=== PATIENT | female | born 1995 | race Caucasian/White ===

== ENCOUNTER → 2020-07-17 09:22 | Outpatient (CLI) | payer OTHER, SELFPAY ==
[2020-07-17 08:42] VITALS: BMI 29.0
[2020-07-17 09:47] LABS: Absolute Lymphocyte Count 1.46 X10^3/uL (0.83-4.51); Basophil# 0.03 X10^3/uL; Basophil% 0.2 % (0-1); Eosinophils% 0.8 % (0-5); Hematocrit 37.7 % (37-47); Hemoglobin 12.6 g/dL (12.0-15.0); Lymphocyte # 1.46 X10^3/ul (4.0); Lymphocyte % 11.9 % (19-41); Mean Corp Hgb Conc 33.4 g/dL (32-36); Mean Corpuscular Hgb 28.3 pg (27.0-32.0); Mean Corpuscular Volume 84.5 fL (81-99); Mean Platelet Vol. 10.7 fl (6.2-12.0); Monocyte# 0.58 X10^3/uL; Monocyte% 4.7 % (0-10); NRBC Flagged by Analyzer 0 % (0-5); Neutrophil % 81.9 % (47-70); Platelet Count 199 K/mm3 (150-450); RBC Distribution Width CV 13.1 % (11.6-14.6); RBC Distribution Width SD 40.1 fl (35.1-43.9); Red Blood Count 4.46 M/mm3 (4.2-5.4); White Blood Count 12.2 K/mm3 (4.4-11.0)
[2020-07-17 10:14] LABS: Amphetamine Urine VISTA NEGATIVE (<1000 ng/mL); Barbiturate Urine VISTA NEGATIVE (< 200 ng/mL); Benzodiazepine Urine VISTA NEGATIVE (< 200 ng/mL); Cocaine Urine VISTA NEGATIVE (< 300 ng/mL); Ecstacy Urine VISTA NEGATIVE (< 500 ng/mL); Methadone Urine VISTA NEGATIVE (< 300 ng/mL); PCP Urine VISTA NEGATIVE (< 25 ng/mL); THC Urine VISTA NEGATIVE (< 50 ng/mL); Vista UDS pH Range 5
[2020-07-17 11:06] LABS: HIV - WCH Non-Reactive (Nonreactive); Hepatitis B Surface Antigen Non-Reactive (Nonreactive); Hepatitis C Antibody Non-Reactive (Nonreactive); Rubella IgG 39.2 IU/mL
[2020-07-23 06:28] LABS: Rapid Plasmin Reagin (RPR) NONREACTIVE (NONREACTIVE)
== END ==
PROVIDERS: Referring Provider Obstetrics & Gynecology; Visit Provider Obstetrics & Gynecology
DX: Z34.80 Encounter for supervision of other normal pregnancy, unspecified trimester (principal)
CPT/HCPCS: 36415; 80307; 85025; 86592; 86703; 86762; 86803; 86850; 86900; 86901; 87086; 87088; 87340

== ENCOUNTER → 2020-08-12 17:13 | Outpatient (CLI) | payer OTHER, SELFPAY ==
[2020-08-12 15:31] VITALS: BMI 29.0
[2020-08-12 18:54] LABS: Amphetamine Urine VISTA NEGATIVE (<1000 ng/mL); Barbiturate Urine VISTA NEGATIVE (< 200 ng/mL); Benzodiazepine Urine VISTA NEGATIVE (< 200 ng/mL); Cocaine Urine VISTA NEGATIVE (< 300 ng/mL); Ecstacy Urine VISTA NEGATIVE (< 500 ng/mL); Methadone Urine VISTA NEGATIVE (< 300 ng/mL); PCP Urine VISTA NEGATIVE (< 25 ng/mL); THC Urine VISTA NEGATIVE (< 50 ng/mL); Vista UDS pH Range 5
== END ==
PROVIDERS: Referring Provider Obstetrics & Gynecology; Visit Provider Obstetrics & Gynecology
DX: O23.40 Unspecified infection of urinary tract in pregnancy, unspecified trimester (principal); Z3A.00 Weeks of gestation of pregnancy not specified
CPT/HCPCS: 80307; 87086; 87088

== ENCOUNTER → 2020-09-10 16:20 | Outpatient (CLI) | payer OTHER, SELFPAY ==
[2020-09-10 15:48] VITALS: BMI 30.9
[2020-09-10 19:32] LABS: Chlamydia Trachomatis by PCR Negative (Negative); Neisserai gonorrhoeae by PCR Negative (Negative); Probe Check PASS; Sample Adequacy Control PASS; Specimen Processing Control PASS
== END ==
PROVIDERS: Referring Provider Obstetrics & Gynecology; Visit Provider Obstetrics & Gynecology
DX: O23.40 Unspecified infection of urinary tract in pregnancy, unspecified trimester (principal); Z3A.00 Weeks of gestation of pregnancy not specified
CPT/HCPCS: 87086; 87088; 87491; 87591

== ENCOUNTER → 2020-10-05 17:00 | Outpatient (CLI) | payer OTHER, SELFPAY ==
[2020-10-05 16:11] VITALS: BMI 31.6
== END ==
PROVIDERS: Visit Provider Obstetrics & Gynecology
DX: R39.15 Urgency of urination (principal)
CPT/HCPCS: 87086; 87088

== ENCOUNTER → 2020-10-28 15:19 | Outpatient (CLI) | payer OTHER, SELFPAY ==
[2020-10-05 16:11] VITALS: BMI 31.6
[2020-10-28 15:41] LABS: Absolute Lymphocyte Count 1.47 X10^3/uL (0.83-4.51); Absolute Neutrophil Count 11.4 X10^3/uL (2.0-7.7); Basophil# 0.02 X10^3/uL; Basophil% 0.1 % (0-1); Eosinophil# 0.08 X10^3/uL; Eosinophils% 0.6 % (0-5); Hematocrit 36.8 % (37-47); Hemoglobin 12.1 g/dL (12.0-15.0); Lymphocyte # 1.47 X10^3/ul (4.0); Lymphocyte % 10.6 % (19-41); Mean Corp Hgb Conc 32.9 g/dL (32-36); Mean Corpuscular Hgb 29.5 pg (27.0-32.0); Mean Corpuscular Volume 89.8 fL (81-99); Mean Platelet Vol. 10.4 fl (6.2-12.0); Monocyte# 0.78 X10^3/uL; Monocyte% 5.6 % (0-10); NRBC Flagged by Analyzer 0 % (0-5); Neutrophil # 11.43 X10^3/uL (2.7-7.7); Neutrophil % 82.7 % (47-70); Platelet Count 179 K/mm3 (150-450); RBC Distribution Width CV 13.4 % (11.6-14.6); RBC Distribution Width SD 43.8 fl (35.1-43.9); White Blood Count 13.8 K/mm3 (4.4-11.0)
[2020-10-28 15:51] LABS: Glucose Challenge Gest 1H 50g 97 mg/dL (70-140)
== END ==
PROVIDERS: Nurse Practitioner Women's Health; Referring Provider Obstetrics & Gynecology; Visit Provider Obstetrics & Gynecology
DX: Z13.1 Encounter for screening for diabetes mellitus (principal); Z34.80 Encounter for supervision of other normal pregnancy, unspecified trimester
CPT/HCPCS: 36415; 82950; 85025

== ENCOUNTER 2020-12-10 16:20 | Outpatient (CLI) | payer OTHER, SELFPAY ==
[2020-12-10 15:50] VITALS: BMI 34.3
[2020-12-10 16:28] VITALS: BMI 35.3
[2020-12-10 16:47] VITALS: BP 133/71; PULSE 107
[2020-12-10 17:04] VITALS: BP 118/63; PULSE 105
[2020-12-10 17:15] LABS: Hematocrit 35.7 % (37-47); Mean Corp Hgb Conc 33.6 g/dL (32-36); Mean Corpuscular Hgb 29.3 pg (27.0-32.0); Mean Corpuscular Volume 87.3 fL (81-99); Mean Platelet Vol. 10.7 fl (6.2-12.0); Platelet Count 156 K/mm3 (150-450); RBC Distribution Width CV 13.6 % (11.6-14.6); RBC Distribution Width SD 42.9 fl (35.1-43.9); Red Blood Count 4.09 M/mm3 (4.2-5.4); White Blood Count 14.1 K/mm3 (4.4-11.0)
[2020-12-10 17:18] VITALS: BP 111/58; PULSE 97
[2020-12-10 17:32] LABS: AST(SGOT) 17 U/L (15-37); Alanine Aminotransfer ALT/SGPT 18 U/L (13-56); Creatinine, Serum 0.66 mg/dL (0.55-1.02); EST Glomerular Filtration Rate 118 mL/min (>60); Est Glom Filt Rate - Afr Amer 143 mL/min (>60); Estimated Creatinine Clearance 109.66 ml/min; Uric Acid 4.3 mg/dL (2.6-6.0)
[2020-12-10 17:33] VITALS: BP 105/59; PULSE 102
[2020-12-10 17:37] LABS: Protein, Urine (Random) 14.1 mg/dL (<11.9); Protein:Creat Ratio 212 mg/g CRE (0-200)
[2020-12-10 17:48] VITALS: BP 118/59; PULSE 107; TEMP 36.6
[2020-12-10] MEDS: Acetaminophen 500 MG Tablet 1000 MG PO (18:04)
--- NOTE | 2020-12-11 11:55 | OB.TRI.NOTE ---
- Problem List (1) Transient hypertension Status: Acute (2) Supervision of other normal Status: Acute Comment: PRR OTF 01/24/21 boy Rojas PC: Elijah, : CELIA History of Present Illness Date of Service: 12/10/20 Was patient seen by the physician?: Yes Reason For Visit: RULE OUT PRE-E Date of Service: 12/10/20 Final OTF: 01/24/21 Gestational age: 33 Weeks and 5 Days History of Present Illness: 25yo at 33 weeks presenting from office for elevated BP, intermittent headaches, and N/V. Has not felt well for the last few days. Mild headache present in triage, but resolved with tylenol. Allergies No Known Allergies Allergy (Verified 12/10/20 15:51) - Pertinent Past Medical History Medical History: Past Medical History (Last Reviewed 12/10/20 @ 15:50 by Delmy Welsh) Anxiety (Acute) Surgical History: Past Surgical History (Last Reviewed 12/10/20 @ 15:50 by Delmy Welsh) H/O section (Acute) 11/23/2018 Cat II FHT. Desires TOLAC. H/O dilation and curettage SAB x2 Laboratory Studies: Laboratory Tests 12/10/20 12/10/20 12/10/20 Range/Units 16:45 16:45 16:10 WBC 14.1 H (4.4-11.0) K/mm3 RBC 4.09 L (4.2-5.4) M/mm3 Hgb 12.0 (12.0-15.0) g/dL Hct 35.7 L (37-47) % MCV 87.3 (81-99) fL MCH 29.3 (27.0-32.0) pg MCHC 33.6 (32-36) g/dL RDW Std Deviation 42.9 (35.1-43.9) fl RDW Coeff of Sherif 13.6 (11.6-14.6) % Plt Count 156 (150-450) K/mm3 MPV 10.7 (6.2-12.0) fl Creatinine 0.66 (0.55-1.02) mg/dL Estim Creat Clear Calc 109.66 ml/min Est GFR (MDRD) Af Amer 143 (>60) mL/min Est GFR (MDRD) Non-Af 118 (>60) mL/min Uric Acid 4.3 (2.6-6.0) mg/dL AST 17 (15-37) U/L ALT 18 (13-56) U/L U Random Total Protein 14.1 H (<11.9) mg/dL Urine Creatinine 66.40 (NO RANGE EST.) mg/dL Protein/Creatinin Ratio 212 H (0-200) mg/g CRE Review of Systems Constitutional: Denies: Chills, Fever HEENT: Reports: Head Aches Cardiovascular: Denies: Light Headedness Respiratory: Denies: Shortness of Breath Gastrointestinal: Reports: Nausea, Vomiting Physical Exam Vitals: Vital Signs Temp Pulse BP 97.8 F 107 H 118/59 L 12/10/20 17:48 12/10/20 17:48 12/10/20 17:48 General: Alert, Oriented x3, Cooperative, No apparent distress, Well developed, Well nourished HEENT: Atraumatic, PERRLA, EOMI, Normocephalic Cardiovascular: Regular rate Lungs: Normal air movement Abdomen: Soft, Non Tender, Non-Distended, Gravid, Appropriate for Gestational Age Extremities:: No edema Neurological: Cranial nerves II-XII grossly intact, Neuro grossly intact NST - FHR Rate Baby A Variability:: Moderate Accelerations:: 15 x 15 Decelerations:: None NST Reactive:: Yes FHR Category:: Category I Impression/Plan Elevated BP/PARRY - BPs normal in triage - PreE labs negative aside from slightly elevated P:C ratio - PARRY resolved with tylenol - Discharge to home with BP check next week Multi Select Codes - Visit Charges Office Visit/Consults: 00960 OV L3 Est - Urinary/Genital Urinary/Genital CPT Codes: 75595-13 non-stress test Interp
== END 2020-12-10 18:40 | disposition home or self-care (01) ==
LOC: WPOUT 16:25 → WP 16:26
PROVIDERS: Visit Provider Obstetrics & Gynecology
DX: O26.893 Other specified pregnancy related conditions, third trimester (principal); R03.0 Elevated blood-pressure reading, without diagnosis of hypertension; R51.9 Headache, unspecified; Z3A.33 33 weeks gestation of pregnancy
CPT/HCPCS: 36415; 59025; 59050; 82565; 82570; 84156; 84450; 84460; 84550; 85027; 99218; G0378

== ENCOUNTER 2020-12-24 17:25 | Inpatient (IN) | payer OTHER, SELFPAY ==
[2020-12-24] VITALS (14 sets, daily range): BP systolic 101–140; BP diastolic 50–86; PULSE 79–121; RESP 14–20; TEMP 36.2–37.3; O2SAT 97–99; BMI 35.9
[2020-12-24 16:59] LABS: ROM Internal Control Test YES-OK TO RESULT pt. (Internal QC)
[2020-12-24 17:06] LABS: ROM Patient Test POSITIVE (Negative)
[2020-12-24] MEDS: Lactated Ringers 1,000 ML 999 ML IV (17:52)
[2020-12-24 18:04] LABS: Absolute Lymphocyte Count 1.77 X10^3/uL (0.83-4.51); Absolute Neutrophil Count 15.8 X10^3/uL (2.0-7.7); Basophil# 0.03 X10^3/uL; Basophil% 0.2 % (0-1); Eosinophils% 0.5 % (0-5); Hemoglobin 12.9 g/dL (12.0-15.0); Lymphocyte # 1.77 X10^3/ul (4.0); Lymphocyte % 9.4 % (19-41); Mean Corp Hgb Conc 33.1 g/dL (32-36); Mean Corpuscular Hgb 29.1 pg (27.0-32.0); Mean Corpuscular Volume 87.8 fL (81-99); Mean Platelet Vol. 11.1 fl (6.2-12.0); Monocyte# 1.13 X10^3/uL; NRBC Flagged by Analyzer 0 % (0-5); Neutrophil # 15.78 X10^3/uL (2.7-7.7); Neutrophil % 83.3 % (47-70); Platelet Count 158 K/mm3 (150-450); RBC Distribution Width CV 13.9 % (11.6-14.6); RBC Distribution Width SD 44.2 fl (35.1-43.9); Red Blood Count 4.44 M/mm3 (4.2-5.4); White Blood Count 18.9 K/mm3 (4.4-11.0)
--- NOTE | 2020-12-24 18:14 | HP.PCM_ITS ---
- Problem List (1) premature rupture of membranes (PPROM) delivered, current hospitalization Status: Acute (2) 34 weeks gestation of Status: Acute Comment: electronic covid test ordered 12/17/20 (3) Anxiety Status: Acute (4) H/O section Status: Acute Comment: 11/23/2018 Cat II FHT. Desires TOLAC. (5) History of tetanus, diphtheria, and acellular pertussis booster vaccination (Tdap) Status: Acute Comment: 10/28/20 (6) Status: Acute Qualifiers: Comment: Declines NIPT, carrier, and NTD screen. normal anatomy (7) Supervision of other normal Status: Acute Comment: PRR OTF 01/24/21 boy Rojas PC: Elijah, : CELIA (8) Transient hypertension Status: Acute (9) UTI (urinary tract infection) during Status: Acute Qualifiers: Comment: Repeat culture neg History and Physical Date of Admission: 12/24/20 Intake Vital Signs 12/24/20 Height 5 ft 3 in 12/24/20 Weight: 203 lb 2 oz 12/24/20 BMI 35.9 12/24/20 BP 128/80 H Intake Visit Reasons: 36 WK OB In Service Education Teacher Required: No Accompanied by: Is patient in pain?: No Allergies No Known Allergies Allergy (Verified 12/24/20 16:05) Medications vitamin#30 30 mg iron-10 mg iron-folic acid 1 mg-omg3 capsule 1 cap PO DAILY #30 cap 10/13/20 [Rx Confirmed 12/24/20] miscellaneous medical supply See Rx Instructions .ROUTE .MEDSUPPLY #1 ea 12/11/20 [Rx Confirmed 12/24/20] Last Menstral Period: 04/19/20 Zika: Zika virus screening: Negative : No PFSH PFSH Medical History Anxiety (Acute) Surgical History H/O section (Acute) H/O dilation and curettage (Acute) Social History (Updated 12/24/20 @ 16:[address] 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 Date Name GA/Weeks Outcome Route Bth Weight Infant Gen Labor Lgth Anesthesia Del Locatn Provider FOB 11/23/18 Elijah 38 live - full term 7lbs 4oz Male [facility] T[facility] Delivery Date: 11/23/18 CAT II FHT Andie Breaux HPI 36 WK OB: Details: CELIA MILLER is a 25 year old who presents for routine OB visit. OB Visit OTF Calculator Estimated Delivery Date Method Current WG Current Estimate 01/24/21 Ultrasound #1 35w 4d Expected Delivery Route/Plan Desires TOLAC patient counseled regarding risks/benefits of trial of labor versus repeat . ACOG/uptodate education given to patient. 69 % likelihood of success per calculator TOLAC consent form signed: 12/10 Labor Preferences- CB/BF classes: no labor support person: CELIA labor intervention preferences: pain management options preferred: epidural cut cord/dad catch: yes : yes PP control planned: OCP discussed possible routes of delivery and associated risks: discussed possible delivery modalities and possible indications for each including R/B/A of , VAVD, FAVD, and CS. questions answered. special requests: [] Specific Issue/Plans flu vaccine: declined tdap vaccine: yes rhogam: na LARC form signed: yes movement and labor precautions reviewed. Problem list reviewed and updated with the most current plan of care details and appropriate orders placed. Relevant counseling for the gestational age provided. Continue routine care and follow up unless otherwise noted in visit notes/problem list details Initial Weight: Not Recorded Date EGA Weight BP Urine Prot Glucose FHR FuHt Pres Dilation Effaced St Visit Note 07/17/20 12w 5d 164 lb 112/78 165 GP - CARLI from [place]. Denies cramping and bleeding. 08/12/20 16w 3d 167 lb 4 oz 126/74 Negative Negative 155 GP - no cramping or bleeding. Waiting for call back about anatomy scan. 09/10/20 20w 4d 174 lb 4 oz 138/82 145 SM- no vb lof good fm no regular ctx, obtain anatomy report SM- no vb lof good fm no regular ctx, obtain anatomy report gcc collected today 10/05/20 24w 1d 179 lb 130/72 Negative Negative 145 24 SM- no vb lof good fm n oreular ctx some pelvic pressure. 10/28/20 27w 3d 187 lb 8 oz 126/70 Negative Negative 154 28 MH-NO VB, LOF. Good FM. Tdap, 28 wk labs, larc 11/09/20 29w 1d 190 lb 134/82 Negative Negative 155 30 GP - no LOF, VB, DFM, ctx. Reviewed 28w labs. 11/26/20 31w 4d 196 lb 142/90 Negative Negative 150 32 SM- discussed more TOLAC R/B/A and handout given, will sign consent next visit. no vb lof good fm no regular ctx 12/10/20 33w 4d 200 lb 2 oz 148/92 Negative Negative 140 33 GP - no LOF, VB, DFM, ctx. Feeling nausea and fatigue. BP elevated in office. Intermittent HAs but none currently. Sent to triage for eval. TOLAC consent signed. 12/16/20 34w 3d 200 lb 4 oz 142/78 102/70 Negative Negative 150 34 Cephalic GP - no LOF, VB, DFM, ctx. No longer having nausea or headaches. BP initially mild range, but normal after resting. 12/24/20 35w 4d 203 lb 2 oz 128/80 Negative Negative 150 35 Cephalic 0 40 -4 GP - no VB, DFM. Having c ontractions off and on all afternoon. Also reports loss of clear fluid for the past 2 days. ROM+ collected. Exam with no pooling. ACOG Second Trimester Second Trimester: Signs and Symptoms of Labor, Selecting a care provider, Reproductive Life Planning, Care Planning, Depression/Anxiety and Intimate Partner Violence; discussed Tobacco Cessation Diagnostics Diagnostics Diagnostics Glucose 1 Hr 50 gm 97 mg/dL (70-140) 10/28/20 Hgb 12.0 g/dL (12.0-15.0) 12/10/20 Hct 35.7 % (37-47) L 12/10/20 Details: HIV: Urine Culture: Sequential Screen: NIPT Screen: ROS ROS Const Reports system reviewed and no additional complaints, except as documented Card Reports system reviewed and no additional complaints, except as documented Resp Reports system reviewed and no additional complaints, except as documented GI Reports system reviewed and no additional complaints, except as documented, Reports nausea Reports system reviewed and no additional complaints, except as documented Musc Reports system reviewed and no additional complaints, except as documented all other systems reviewed and negative Exam Const General: cooperative, healthy appearing, comfortable, no acute distress, well developed, well groomed Nutritional Appearance: average body habitus, well nourished Orientation: alert, awake, oriented x3 HENMT Head: normal to inspection, normocephalic, atraumatic Eyes Pupils: PERRL, accommodation normal Resp Effort & Inspection: normal respiratory effort, able to speak in complete sentences, symmetric chest movement Cardio Rate: regular rate GI Palpation: soft, no guarding, no masses, nontender Skin General: no rashes or lesions noted, elasticity normal, turgor normal Neuro General: alert, awake, oriented x3 Cranial Nerves: CN's II-XI intact bilaterally, sense of smell intact, PERRL, accommodation normal, EOM intact bilaterally Speech: speech normal Gait: normal gait Psych Appearance: grossly normal, well kempt Mental Status: mental status grossly normal Mood: congruent mood Affect: normal affect Speech and Movement: speech and movement normal Attitude: cooperative Thought Process: normal Thought Content: normal Judgment: judgment good Results POC Urinalysis 2 Dip (Clinic) Office Urine Glucose Negative Last Edit by Alicia Renee on 12/24/20 16:05 Office Urine Protein Negative Last Edit by Alicia Renee on 12/24/20 16:05 Assessment & Plan Problems 1. 34 weeks gestation of Z3A.34 electronic covid test ordered 12/17/20 2. History of tetanus, diphtheria, and acellular pertussis booster vaccination (Tdap) Z92.29 10/28/20 3. Urinary tract infection in mother during third trimester of O23.43 Repeat culture neg 4. Supervision of other normal Z34.80 PRR OTF 01/24/21 boy Rojas PC: Elijah, : CELIA 5. 35 weeks gestation of Z3A.35 Declines NIPT, carrier, and NTD screen. normal anatomy 6. H/O section Z98.891 11/23/2018 Cat II FHT. Desires TOLAC. UPDATE- I have seen the patient and performed any clinically relevant updates to the history and physical exam. Chio Dailey MD
[2020-12-24] MEDS: Acetaminophen 500 MG Tablet 1000 MG PO ×2 (18:21→23:53)
[2020-12-24] MEDS: Lactated Ringers 1,000 ML 150 ML IV (18:55)
[2020-12-24] MEDS: Sodium Citrate/Citric Acid 30 ML UDC PO (18:58)
[2020-12-24] MEDS: Cefazolin 2 GM in 0.9% Normal Saline 100 ML IV (19:19)
[2020-12-24] MEDS: Oxytocin 30 units/NS 500 ml 30 UNITS/500 ML IV.SOLN 167 UNITS IV (20:40)
--- NOTE | 2020-12-24 20:53 | PCM.OPRPT ---
Problem List (1) premature rupture of membranes (PPROM) delivered, current hospitalization Status: Acute (2) 34 weeks gestation of Status: Acute Comment: electronic covid test ordered 12/17/20 (3) Anxiety Status: Acute (4) H/O section Status: Acute Comment: 11/23/2018 Cat II FHT. Desires TOLAC. (5) History of tetanus, diphtheria, and acellular pertussis booster vaccination (Tdap) Status: Acute Comment: 10/28/20 (6) Status: Acute Qualifiers: Comment: Declines NIPT, carrier, and NTD screen. normal anatomy (7) Supervision of other normal Status: Acute Comment: PRR OTF 01/24/21 boy Rojas PC: Elijah, : CELIA (8) Transient hypertension Status: Acute (9) UTI (urinary tract infection) during Status: Acute Qualifiers: Comment: Repeat culture neg Delivery Classification: Scheduled Final OTF: 01/24/21 Gestational age: 35 Weeks and 4 Days board runner: Kassidy Quiroz Type of Anesthesia:: Spinal Special Medications: Ancef 2g, Azithromycin Date of Procedure: 12/24/20 Pre-Operative Diagnosis: PPROM, Hx , unfavorable cervix Post-Operative Diagnosis: Same Indications: 5-year-old G2, P1 at 35 weeks gestation who presented to the office with leakage of fluid. ROM plus was positive. Patient had a history of x1. Was interested in trial of labor, however her cervix was noted to be closed and head was not well engaged in the pelvis. Recommendation was made to proceed with repeat section. The risk, benefits, indications, and alternatives to the procedure were discussed with the patient including bleeding, infection, and visceral vascular injury. Patient voiced understanding and agreed to proceed. Indications for : Repeat Elective , - - PPROM Description of Procedure: The patient is a G2, P1 at 35 weeks gestation who presented for repeat . Spinal anesthesia was placed without difficulty. Moreno catheter was placed. The patient was placed in the dorsal supine position with leftward tilt. Patient was prepped and draped in the normal sterile fashion. Pfannenstiel skin incision was made with the scalpel and carried through to the underlying layer of fascia with the scalpel. Fascia was nicked in the midline and the incision extended laterally. The rectus bellies were dissected off superiorly and inferiorly with out complication both sharply and bluntly. The peritoneum was entered digitally. The incision was stretched and a low transverse uterine incision was made with the scalpel. The infant's head was delivered atraumatically followed by the anterior and posterior shoulders without complication the rest of the delivered. The cord was clamped and cut and the infant was handed off to awaiting nurse. The placenta was delivered spontaneously immediately following and was noted to be intact and have a three-vessel cord. The uterus was exteriorized cleared of all clots and debris, and the incision was closed in a double layer closure using #1 Monocryl. The ovaries and fallopian tubes were noted to be within normal limits. The uterus was returned to the maternal abdomen and gutters were cleared of all clots and debris. The peritoneum was closed with 3-0 Monocryl in a running fashion. Gloves were changed prior to fascial closure. Fascia was closed with 0 PDS in a running fashion. Subcutaneous tissue was copiously irrigated and the skin was closed with 3-0 Monocryl in a subcuticular fashion. Mepilex dressing was applied without complication. Patient was taken to recovery in stable condition. Amniotic Membrane Rupture Type: Spontaneous Amniotic Fluid Description: Clear Placenta Disposition: [facility] Drain: Moreno to straight drain Fluids Replaced: 1000 Cord Entanglement: None Cord Vessel Description: 3 Vessels Esitmated Blood Loss (ml): 700 Infant Gender: Male Delayed cord clamping: Yes Antibiotic Given: Ancef 2 grams IV x1, Zithromax 500 mg/5 mL X1 Pt instructed on risks of surgery: Bleeding, Anesthesia Risks, Infection, Injury to surrounding structure(s) including bowel and bladder - Admit VTE Documentation VTE Present on Admission: No VTE Mechan Device Prophylaxis: SCD's VTE Pharm Prophylaxis ordered?: Yes Multi Select Codes - Urinary/Genital Urinary/Genital CPT Codes: [address] [facility]
--- NOTE | 2020-12-24 21:09 | DCINST_ITS ---
Discharge Diet: No Restrictions Discharge Activity: May Not Drive - for 2 weeks or while taking narcotic pain meds., May Shower, May Take a Tub Bath - in 7 days. May resume sexual activity in: 4-6 weeks Lifting Restrictions: 20 pounds Additional Activity Instructions:: Nothing in the vagina for 4-6 weeks. You may return to work/school in 6 weeks. Call your doctor if your incision/area has: Continuous Slow Oozing, Sudden Increased Bleeding, Increased Pain/ Swelling, Increased Redness, Foul Smelling Discharge Call your doctor if you observe: Fever of 101 or Higher Suture Line Care: Avoid Pulling/Pushing, Avoid Pinching/Bending Additional Instructions: If you experience any of the following, contact your healthcare provider. * Bleeding that soaks a pad every hour for 2 hours * Fever 100.4 or higher * Unrelieved incision or abdominal pain * Swelling, redness, discharge or bleeding from your incision or episiotomy site * Your incision begins to separate * Problems urinating (including inability to urinate or burning while urinating). * Visual changes * Severe headache * Flu-like symptoms * Pain or redness in one of both of your breasts * Pain, warmth, tenderness or swelling in your legs, especially the calf area * Frequent nausea and vomiting * Symptoms of depression or anxiety If you experience any of the following, call 911 or go to the nearest Emergency Room. * Chest pain * Problems breathing * Seizure activity * Partial or complete paralysis of a body part, slurred speech, weakness or drooping of the face, or a sudden inability to walk or hold your balance Allergies/Adverse Reactions: Allergies No Known Allergies Allergy (Verified 12/24/20 16:05) Medications to take at Discharge miscellaneous medical supply See Rx Instructions .ROUTE .MEDSUPPLY #1 ea 12/11/20 vitamin#30 30 mg iron-10 mg iron-folic acid 1 mg-omg3 capsule 1 cap PO DAILY 12/24/20 Follow-Up: Call to make an appointment with your doctor for an incision check in 1-2 weeks. You will also need a 6 week post- follow up appointment. Test results from this visit will be discussed in further detail at your follow- up appointment, if applicable. Primary Care Physician: Care Physician,No Primary [Primary Care Provider] -
--- NOTE | 2020-12-24 21:34 | NURSING ---
1 liter fluids given in OR per bbiddle METAL SPINNER in OR 1.
--- NOTE | 2020-12-24 21:59 | NURSING ---
pt had spontaneous ROM with clear fluid in office visit today around 1530. cervix unfavorable per dr amaral and repeat csection discussed with pt. scheduled csection and no labor to be attempted.
[2020-12-24] MEDS: Lactated Ringers 1,000 ML 100 ML IV (23:36)
[2020-12-25] VITALS (9 sets, daily range): BP systolic 112–126; BP diastolic 62–76; PULSE 72–93; RESP 14–20; TEMP 36.4–36.9; O2SAT 98–100
[2020-12-25] MEDS: Ketorolac 30 MG/ML Syringe IV ×3 (02:48→14:07)
[2020-12-25] MEDS: 0.9% Saline Lock 10 ML Syringe IV ×3 (02:48→14:08)
[2020-12-25 04:49] LABS: Hematocrit 36.1 % (37-47); Hemoglobin 11.8 g/dL (12.0-15.0); Mean Corp Hgb Conc 32.7 g/dL (32-36); Mean Corpuscular Hgb 29.4 pg (27.0-32.0); Mean Corpuscular Volume 89.8 fL (81-99); Mean Platelet Vol. 10.9 fl (6.2-12.0); Platelet Count 143 K/mm3 (150-450); RBC Distribution Width CV 13.7 % (11.6-14.6); Red Blood Count 4.02 M/mm3 (4.2-5.4); White Blood Count 18.1 K/mm3 (4.4-11.0)
[2020-12-25] MEDS: Acetaminophen 500 MG Tablet 1000 MG PO ×3 (06:32→18:43)
[2020-12-25] MEDS: Enoxaparin 40 MG/0.4 ML Syringe SC (11:18)
[2020-12-25] MEDS: Senna/Docusate Sodium 1 Tablet PO (11:23)
[2020-12-25] MEDS: oxyCODONE 5 MG Tablet PO ×2 (17:32→21:36)
[2020-12-25] MEDS: Ibuprofen 600 MG Tablet PO (19:39)
[2020-12-26] MEDS: Acetaminophen 500 MG Tablet 1000 MG PO ×4 (01:21→19:52)
[2020-12-26] MEDS: Ibuprofen 600 MG Tablet PO ×4 (01:21→19:52)
[2020-12-26 01:24] VITALS: BP 108/70; PULSE 81; RESP 18; TEMP 36.5; O2SAT 97
--- NOTE | 2020-12-26 03:12 | PCM.PN.OB ---
Patient Problems: Active and Suspected Problems (Last Reviewed 12/24/20 @ 16:05 by Alicia Renee) premature rupture of membranes (PPROM) delivered, current hospitalization (Acute) 34 weeks gestation of (Acute) electronic covid test ordered 12/17/20 Transient hypertension (Acute) History of tetanus, diphtheria, and acellular pertussis booster vaccination (Tdap) (Acute) 10/28/20 UTI (urinary tract infection) during (Acute) Repeat culture neg Supervision of other normal (Acute) PRR OTF 01/24/21 boy Rojas PC: Elijah, : TJ (Acute) Declines NIPT, carrier, and NTD screen. normal anatomy H/O section (Acute) 11/23/2018 Cat II FHT. Desires TOLAC. Anxiety (Acute) Subjective: Patient doing well without complaints. Tolerating PO. Ambulating and voiding without difficulty. feeding well. Denies chest pain, shortness of breath, calf pain/swelling, fevers, chills, lightheadedness. - Physical Exam Vitals/I&O's: Vital Signs Temp Pulse Resp BP Pulse Ox 97.7 F L 81 18 108/70 97 12/26/20 01:24 12/26/20 01:24 12/26/20 01:24 12/26/20 01:24 12/26/20 01:24 Oxygen Delivery Method Room Air Weight: 203 lb Body Mass Index (BMI) 35.9 Intake and Output for Last 24 Hours 12/24/20 12/25/20 12/26/20 23:59 23:59 23:59 Intake Total 2152.65 / 2152.65 1640 / 1640 Output Total 350 / 350 650 / 650 Balance 1802.65 / 1802.65 990 / 990 General: Alert, Oriented x3 Microbiology Past 72 Hours 12/24/20 17:50 Mucosa - Nose SARS-CoV-2 Antigen (Rapid) - Final Laboratory Results 12/25/20 04:43: WBC 18.1 H, RBC 4.02 L, Hgb 11.8 L, Hct 36.1 L, MCV 89.8, MCH 29.4, MCHC 32.7, RDW Std Deviation 45.0 H, RDW Coeff of Sherif 13.7, Plt Count 143 L, MPV 10.9 Current Medications Acetaminophen (Acetaminophen 500 Mg Tablet) 1,000 mg PO Q6H [facility] Last Admin: 12/26/20 01:21 Dose: 1,000 mg Documented by: Bisacodyl (Bisacodyl 10 Mg Suppository) 10 mg RECTAL UD PRN PRN Reason: If no BM Enoxaparin Sodium (Enoxaparin 40 Mg/0.4 Ml Syringe) 40 mg SC DAILY [facility] Last Admin: 12/25/20 11:18 Dose: 40 mg Documented by: Hydrocortisone (Hydrocortisone 2.5% Crm) 1 applic TOPICAL TID PRN PRN; Protocol PRN Reason: Discomfort Ibuprofen (Ibuprofen 600 Mg Tablet) 600 mg PO Q6H [facility] Last Admin: 12/26/20 01:21 Dose: 600 mg Documented by: Methylergonovine Maleate (Methylergonovine 0.2 Mg/Ml Ampul) 0.2 mg IM X1 PRN PRN Reason: Uterine Atony Naloxone HCl (Naloxone 0.4 Mg/Ml Syringe) 0.02 mg IV Q1M PRN PRN Reason: RR <10 and pt unresponsive Ondansetron HCl (Ondansetron 4 Mg/2 Ml Vial) 4 mg IV Q4H PRN PRN PRN Reason: Nausea Oxycodone HCl (Oxycodone 5 Mg Tablet) 5 - 10 mg PO Q4H PRN PRN PRN Reason: Pain Score 4-10 Last Admin: 12/25/20 21:36 Dose: 10 mg Documented by: Prochlorperazine Edisylate (Prochlorperazine 10 Mg/2 Ml Vial) 10 mg IV Q6H PRN PRN PRN Reason: NAUSEA Senna/Docusate Sodium (Senna/Docusate Sodium 1 Tablet) 1 - 2 tablet PO DAILY [facility] Last Admin: 12/25/20 11:23 Dose: 2 tablet Documented by: Simethicone (Simethicone 80 Mg Tablet) 80 mg PO PCHS PRN PRN Reason: Indigestion/stomach pain Sodium Chloride (0.9% Saline Lock 10 Ml Syringe) 5 - 15 ml IV UD PRN PRN Reason: SALINE FLUSH Last Admin: 12/25/20 14:08 Dose: 5 ml Documented by: Medical Necessity - Tobacco Use Smoking Status: Never smoker Assessment/Plan All Active Problems (Last Reviewed 12/24/20 @ 16:05 by Alicia Renee) premature rupture of membranes (PPROM) delivered, current hospitalization (Acute) 34 weeks gestation of (Acute) Transient hypertension (Acute) History of tetanus, diphtheria, and acellular pertussis booster vaccination (Tdap) (Acute) UTI (urinary tract infection) during (Acute) Supervision of other normal (Acute) (Acute) H/O section (Acute) Anxiety (Acute) s/p LTCS PPD # 2 1. routine post care 2. breast feeding- support given 3. rh positive 4. rubella immune
[2020-12-26 08:45] VITALS: BP 115/79; PULSE 85; RESP 16; TEMP 36.7; O2SAT 98
[2020-12-26] MEDS: oxyCODONE 5 MG Tablet PO ×4 (08:49→22:36)
[2020-12-26] MEDS: Senna/Docusate Sodium 1 Tablet PO (08:50)
[2020-12-26] MEDS: Enoxaparin 40 MG/0.4 ML Syringe SC (08:50)
[2020-12-26 14:25] VITALS: BP 114/74; PULSE 87; RESP 16; TEMP 36.3; O2SAT 98
--- NOTE | 2020-12-26 17:30 | CASEMGMT ---
Social Work Brief Assessment Labor and Delivery Unit Date of Referral/Notification: 12/25/20 Time of Referral: 22:12 Referred By: Dr. Dailey Reason for Referral: MOB with history of anxiety, baby transferred to [facility] Date of Intervention: 12/26/20 Time of Intervention: 17:30 Informant: Medical record and mother of baby (MOB) Assessment: Met with MOB in room. Baby Rojas dickinson in [facility]. MOB delivered at 34 weeks. MOB states baby is doing well and is . MOB openly discussed history of anxiety and states was treated with medication in the past. MOB states does not wish to be on medication and paddy with anxiety in ?own way.? MOB reports good support from FOB. MOB states FOB left to be with their 2-year-old son, Elijah. MOB stated ?he (Elijah) is having a hard time with being away from mommy.? Emotional support provided to MOB. MOB declines any needs at this time and thanked this worker for visit. MOB plans to finish dinner and return to [facility]. Plan: Anticipates d/c to hotel status tomorrow as Rojas will will continue care in [facility]. No further needs requested or indicated. Rasta Carlson, SUPERVISOR [employer], BUSINESS CONTINUITY MANAGER
[2020-12-26 19:53] VITALS: BP 132/77; PULSE 88; RESP 16; TEMP 36.3; O2SAT 96
[2020-12-27 01:44] VITALS: BP 123/77; PULSE 85; RESP 14; TEMP 36.3
[2020-12-27] MEDS: Acetaminophen 500 MG Tablet 1000 MG PO ×2 (01:47→08:03)
[2020-12-27] MEDS: Ibuprofen 600 MG Tablet PO ×2 (01:48→08:02)
[2020-12-27] MEDS: oxyCODONE 5 MG Tablet PO ×3 (02:53→11:45)
[2020-12-27 08:10] VITALS: BP 129/85; PULSE 87; RESP 18; TEMP 36.3; O2SAT 96
--- NOTE | 2020-12-27 08:21 | NURSING ---
At 0810 during assessment, mepilex dressing noted to be starting to lift on left lower side. Encouraged to remove since no longer intact. Pt wants to remove when in shower this morning. No drainage noted on mepilex dressing.
[2020-12-27] MEDS: Senna/Docusate Sodium 1 Tablet PO (10:21)
[2020-12-27] MEDS: Enoxaparin 40 MG/0.4 ML Syringe SC (10:21)
--- NOTE | 2020-12-27 10:40 | NURSING ---
At 1020, pt wanted RN to remove dressing prior to shower now. Mepilex dressing removed by this RN due to lifting on lower left corner of dressing and no longer intact.
--- NOTE | 2020-12-27 11:23 | PN.OBGYN_ITS ---
Patient Problems: Active and Suspected Problems (Last Reviewed 12/24/20 @ 16:05 by Alicia Renee) premature rupture of membranes (PPROM) delivered, current hospitalization (Acute) 34 weeks gestation of (Acute) electronic covid test ordered 12/17/20 Transient hypertension (Acute) History of tetanus, diphtheria, and acellular pertussis booster vaccination (Tdap) (Acute) 10/28/20 UTI (urinary tract infection) during (Acute) Repeat culture neg Supervision of other normal (Acute) PRR OTF 01/24/21 boy Rojas PC: Elijah, : TJ (Acute) Declines NIPT, carrier, and NTD screen. normal anatomy H/O section (Acute) 11/23/2018 Cat II FHT. Desires TOLAC. Anxiety (Acute) Subjective: Patient doing well without complaints. Tolerating PO. Ambulating and voiding without difficulty. feeding well. Denies chest pain, shortness of breath, calf pain/swelling, fevers, chills, lightheadedness. - Physical Exam Vitals/I&O's: Vital Signs Temp Pulse Resp BP Pulse Ox 97.4 F L 87 18 129/85 H 96 12/27/20 08:10 12/27/20 08:10 12/27/20 08:10 12/27/20 08:10 12/27/20 08:10 Oxygen Delivery Method Room Air Weight: 203 lb Body Mass Index (BMI) 35.9 Intake and Output for Last 24 Hours 12/25/20 12/26/20 12/27/20 23:59 23:59 23:59 Intake Total 1640 / 1640 Output Total 650 / 650 Balance 990 / 990 General: Alert, Oriented x3 Microbiology Past 72 Hours 12/24/20 17:50 Mucosa - Nose SARS-CoV-2 Antigen (Rapid) - Final Current Medications Acetaminophen (Acetaminophen 500 Mg Tablet) 1,000 mg PO Q6H PENDING SALE TO [facility] Last Admin: 12/27/20 08:03 Dose: 1,000 mg Documented by: Bisacodyl (Bisacodyl 10 Mg Suppository) 10 mg RECTAL UD PRN PRN Reason: If no BM Enoxaparin Sodium (Enoxaparin 40 Mg/0.4 Ml Syringe) 40 mg SC DAILY PENDING SALE TO [facility] Last Admin: 12/27/20 10:21 Dose: 40 mg Documented by: Hydrocortisone (Hydrocortisone 2.5% Crm) 1 applic TOPICAL TID PRN PRN; Protocol PRN Reason: Discomfort Ibuprofen (Ibuprofen 600 Mg Tablet) 600 mg PO Q6H PENDING SALE TO [facility] Last Admin: 12/27/20 08:02 Dose: 600 mg Documented by: Methylergonovine Maleate (Methylergonovine 0.2 Mg/Ml Ampul) 0.2 mg IM X1 PRN PRN Reason: Uterine Atony Naloxone HCl (Naloxone 0.4 Mg/Ml Syringe) 0.02 mg IV Q1M PRN PRN Reason: RR <10 and pt unresponsive Ondansetron HCl (Ondansetron 4 Mg/2 Ml Vial) 4 mg IV Q4H PRN PRN PRN Reason: Nausea Oxycodone HCl (Oxycodone 5 Mg Tablet) 5 - 10 mg PO Q4H PRN PRN PRN Reason: Pain Score 4-10 Last Admin: 12/27/20 06:58 Dose: 10 mg Documented by: Prochlorperazine Edisylate (Prochlorperazine 10 Mg/2 Ml Vial) 10 mg IV Q6H PRN PRN PRN Reason: NAUSEA Senna/Docusate Sodium (Senna/Docusate Sodium 1 Tablet) 1 - 2 tablet PO DAILY PENDING SALE TO [facility] Last Admin: 12/27/20 10:21 Dose: 2 tablet Documented by: Simethicone (Simethicone 80 Mg Tablet) 80 mg PO PCHS PRN PRN Reason: Indigestion/stomach pain Sodium Chloride (0.9% Saline Lock 10 Ml Syringe) 5 - 15 ml IV UD PRN PRN Reason: SALINE FLUSH Last Admin: 12/25/20 14:08 Dose: 5 ml Documented by: Medical Necessity - Tobacco Use Smoking Status: Never smoker Assessment/Plan All Active Problems (Last Reviewed 12/24/20 @ 16:05 by Alicia Renee) premature rupture of membranes (PPROM) delivered, current hospitalization (Acute) 34 weeks gestation of (Acute) Transient hypertension (Acute) History of tetanus, diphtheria, and acellular pertussis booster vaccination (Tdap) (Acute) UTI (urinary tract infection) during (Acute) Supervision of other normal (Acute) (Acute) H/O section (Acute) Anxiety (Acute) s/p LTCS PPD # 3 1. routine post care 2. breast feeding- support given 3. rh positive 4. rubella immune
[2020-12-27 11:47] VITALS: BP 124/76; PULSE 88; RESP 16; TEMP 36.3; O2SAT 95
--- NOTE | 2021-01-01 07:08 | PCM.DC.BLA ---
Discharge Summary Date of Admission: 12/24/20 Date of Discharge: 12/27/20 Summary: Patient was admitted and induced due to heart rate tracing abnormality and proceed to complete dilation and delivered vaginally without complication. She had a routine recovery and stable for discharge to home 2 days later. Patient Problems: Active and Suspected Problems (Last Reviewed 12/24/20 @ 16:05 by Alicia Renee) premature rupture of membranes (PPROM) delivered, current hospitalization (Acute) 34 weeks gestation of (Acute) electronic covid test ordered 12/17/20 Transient hypertension (Acute) History of tetanus, diphtheria, and acellular pertussis booster vaccination (Tdap) (Acute) 10/28/20 UTI (urinary tract infection) during (Acute) Repeat culture neg Supervision of other normal (Acute) PRR OTF 01/24/21 boy Rojas PC: Elijah, : TJ (Acute) Declines NIPT, carrier, and NTD screen. normal anatomy H/O section (Acute) 11/23/2018 Cat II FHT. Desires TOLAC. Anxiety (Acute) - Physical Exam Vitals/I&O's: Vital Signs Temp Pulse Resp BP Pulse Ox 97.3 F L 88 16 124/76 H 95 12/27/20 11:47 12/27/20 11:47 12/27/20 11:47 12/27/20 11:47 12/27/20 11:47 Oxygen Delivery Method Room Air Weight: 203 lb Body Mass Index (BMI) 35.9
--- NOTE | 2021-01-01 09:16 | NURSING ---
Left voice mail for follow up call.
== END 2020-12-27 11:55 | disposition home or self-care (01) | DRG 788 ==
PROVIDERS: Admitting Provider Obstetrics & Gynecology; Visit Provider Obstetrics & Gynecology
DX: O42.913 Preterm premature rupture of membranes, unspecified as to length of time between rupture and onset of labor, third trimester (principal); O34.219 Maternal care for unspecified type scar from previous cesarean delivery; O99.344 Other mental disorders complicating childbirth; F41.9 Anxiety disorder, unspecified; Z28.21 Immunization not carried out because of patient refusal; Z37.0 Single live birth; Z92.29 Personal history of other drug therapy; Z3A.35 35 weeks gestation of pregnancy
CPT/HCPCS: 59025; 59050; 84112; 85025; 85027; 86850; 86900; 86901; 87426; 99218; J7120; A4216; G0378; J2405

== ENCOUNTER → 2021-02-04 13:05 | Outpatient (CLI) | payer OTHER, SELFPAY ==
[2021-02-04 10:00] VITALS: BMI 32.1
[2021-02-09 20:33] LABS: HPV Reflexed? NOT INDICATED
== END ==
PROVIDERS: Visit Provider Obstetrics & Gynecology
DX: Z12.4 Encounter for screening for malignant neoplasm of cervix (principal)
CPT/HCPCS: 88175; G0145

== ENCOUNTER → 2022-10-27 | Outpatient (CLI) | payer OTHER, SELFPAY ==
--- NOTE | 2022-10-27 15:53 | US_ITS ---
STUDY: FIRST TRIMESTER OBSTETRICAL ULTRASOUND REASON FOR EXAM: Female, 27 years old. well being TECHNIQUE: Transvaginal US was obtained to better visualized the ovaries. TECHNICAL QUALITY: Adequate. PRIOR ULTRASOUND: None. FINDINGS: There is visualization of a single gestational sac in a normal intrauterine position. The mean sac diameter (MSD) measures 27 mm, indicating an estimated gestational age (EGA) of 7 weeks, 5 days. The gestational sac shape is within normal limits. There is a visualized yolk sac. The yolk sac measures 2.7 mm. The placenta is non-visualized. Due to early gestation, the placenta is not seen. There is visualization of a live embryo. The crown-rump length (CRL) measures 13 mm, indicating an estimated gestational age (EGA) of 7 weeks, 4 days. There is demonstrated cardiac activity with a heart rate of 174 bpm. The estimated gestation age (EGA) by LMP is 6 weeks, 3 days. The estimated date of delivery (OTF) by LMP is 7.31.23. The estimated gestation age (EGA) by US is 7 weeks, 5 days. The estimated date of delivery (OTF) by US is 7.22.23. The uterus measures 12 x 8 cm. There is no demonstrated uterine fibroid. The cervix is closed. The right ovary measures 2.1 x 1.8 cm. There is no right ovarian cyst. There is no visualized right adnexal mass or complex lesion. The left ovary measures 3.6 x 2.2 cm. There is no left ovarian cyst. There is no visualized left adnexal mass or complex lesion. There is minimal fluid in the cul de sac. US/Transvaginal w/Preg US IMPRESSION: There is a single live intrauterine with a heart rate of 174 bpm. There is minimal fluid in the cul de sac. Electronically Signed: Tato Crystal MD at 16:38 EST ,
== END | disposition home or self-care (01) ==
LOC: US 15:52
PROVIDERS: Referring Provider Obstetrics & Gynecology; Visit Provider Obstetrics & Gynecology
DX: O36.80X0 Pregnancy with inconclusive fetal viability, not applicable or unspecified (principal); Z3A.01 Less than 8 weeks gestation of pregnancy
CPT/HCPCS: 76817

== ENCOUNTER → 2022-11-08 | Outpatient (CLI) | payer OTHER, SELFPAY ==
[2022-11-11 06:08] LABS: Chlamydia By Nucleic Acid AMP Negative (Negative)
[2022-11-11 10:42] LABS: Gonococcus By Nucleic Acid AMP Negative (Negative)
== END | disposition home or self-care (01) ==
PROVIDERS: Visit Provider Obstetrics & Gynecology
DX: Z34.90 Encounter for supervision of normal pregnancy, unspecified, unspecified trimester (principal); N89.8 Other specified noninflammatory disorders of vagina
CPT/HCPCS: 87086; 87088; 87491; 87591

== ENCOUNTER → 2022-11-24 | Outpatient (CLI) | payer OTHER, SELFPAY ==
[2022-11-24 17:18] LABS: NATERA MAILED SPECIMEN
[2022-11-24 17:19] LABS: Absolute Lymphocyte Count 1.95 X10^3/uL (0.83-4.51); Absolute Neutrophil Count 9.6 X10^3/uL (2.0-7.7); Basophil# 0.03 X10^3/uL; Basophil% 0.2 % (0-1); Eosinophil# 0.07 X10^3/uL; Eosinophils% 0.6 % (0-5); Hematocrit 35.5 % (37-47); Hemoglobin 12.3 g/dL (12.0-15.0); Lymphocyte # 1.95 X10^3/ul (0.83-4.51); Lymphocyte % 15.8 % (19-41); Mean Corp Hgb Conc 34.6 g/dL (32-36); Mean Corpuscular Hgb 29.6 pg (27.0-32.0); Mean Corpuscular Volume 85.3 fL (81-99); Mean Platelet Vol. 10.9 fl (6.2-12.0); Monocyte# 0.73 X10^3/uL; Monocyte% 5.9 % (0-10); NRBC Flagged by Analyzer 0 % (0-5); Neutrophil # 9.55 X10^3/uL (2.7-7.7); Neutrophil % 77.3 % (47-70); Platelet Count 195 K/mm3 (150-450); RBC Distribution Width CV 13.5 % (11.6-14.6); RBC Distribution Width SD 42.3 fl (35.1-43.9); Red Blood Count 4.16 M/mm3 (4.2-5.4); White Blood Count 12.4 K/mm3 (4.4-11.0)
[2022-11-24 18:42] LABS: HIV - WCH Non-Reactive (Nonreactive); Hepatitis B Surface Antigen Non-Reactive (Nonreactive); Hepatitis C Antibody Non-Reactive (Nonreactive); Rubella IgG Reactive (Nonreactive); Syphilis Antibodies Non-reactive
== END | disposition home or self-care (01) ==
LOC: LAB 16:10
PROVIDERS: Visit Provider Obstetrics & Gynecology
DX: Z34.81 Encounter for supervision of other normal pregnancy, first trimester (principal)
CPT/HCPCS: 36415; 85025; 86703; 86762; 86780; 86803; 86850; 86900; 86901; 87340

== ENCOUNTER 2023-02-07 19:00 | Outpatient (CLI) | payer OTHER, SELFPAY ==
[2023-02-07 19:07] VITALS: BMI 32.8
[2023-02-07 19:26] VITALS: BP 136/72; PULSE 96
[2023-02-07 19:30] VITALS: TEMP 37
--- NOTE | 2023-02-07 19:39 | OB.TRI.PN ---
Progress Notes Date of Service: 02/07/23 Progress Note: Patient presents for triage evaluation secondary to possible SROM FHT: 150 Moderate variability reactive no decelerations category I tracing [place]: No Contractions Assessment and plan: Reactive NST, reassuring maternal and status patient discharged to home to follow-up at next scheduled appointment. See problem list details for additional plan information. Charges/Coding Multi Select Codes Urinary/Genital Urinary/Genital CPT Codes: 89288-18 non-stress test Interp
[2023-02-07 19:43] LABS: ROM Internal Control Test YES-OK TO RESULT pt. (Internal QC); ROM Patient Test Negative (Negative)
[2023-02-07 19:47] VITALS: PULSE 98; TEMP 37.2; O2SAT 98
[2023-02-07 19:49] VITALS: BP 139/89; PULSE 109
== END 2023-02-07 20:05 | disposition home or self-care (01) ==
LOC: WPOUT 19:03 → WP 19:03
PROVIDERS: Advanced Practice Midwife; Visit Provider Obstetrics & Gynecology
DX: Z34.90 Encounter for supervision of normal pregnancy, unspecified, unspecified trimester (principal); Z3A.00 Weeks of gestation of pregnancy not specified
CPT/HCPCS: 59050; 84112; 99221; G0378

== ENCOUNTER 2023-02-10 12:48 | Outpatient (CLI) | payer OTHER, SELFPAY ==
[2023-02-10] VITALS (9 sets, daily range): BP systolic 92–163; BP diastolic 53–85; PULSE 88–120; TEMP 37.1; O2SAT 99–100; BMI 33.1
[2023-02-10 13:31] LABS: Hematocrit 35.5 % (37-47); Hemoglobin 12.1 g/dL (12.0-15.0); Mean Corp Hgb Conc 34.1 g/dL (32-36); Mean Corpuscular Hgb 29.9 pg (27.0-32.0); Mean Corpuscular Volume 87.7 fL (81-99); Mean Platelet Vol. 10.6 fl (6.2-12.0); Platelet Count 165 K/mm3 (150-450); RBC Distribution Width CV 13.2 % (11.6-14.6); RBC Distribution Width SD 42.1 fl (35.1-43.9); Red Blood Count 4.05 M/mm3 (4.2-5.4)
[2023-02-10 13:45] LABS: Creatinine, Urine (random) < 13.00 mg/dL (NO RANGE EST.); Protein, Urine (Random) < 6.0 mg/dL (<11.9)
--- NOTE | 2023-02-10 13:54 | OB.TRI.HP_ITS ---
HPI - General General Date of Service: 02/10/23 HPI Narrative CELIA MILLER, is a 27 F who presents with headache, nausea, and dizziness x 2 days. Took tylenol yesterday to help with the headache and she was able to fall asleep. Also reports achiness in RUQ and puffiness around her eyes. She was at work and co worker took BP of 166/76. She Maternal Data Information OTF Calculator Estimated Delivery Date Method Current WG Current Estimate 06/08/23 Ultrasound #2 23w 1d Other Estimates 06/19/23 LMP (Uncertain) 21w 4d Final OTF: 06/08/23 Gestational age: 23weeks 1 day PFSH PFSH Medical History Anxiety History of miscarriage Home Medications vitamin#30 30 mg iron-10 mg iron-folic acid 1 mg-omg3 capsule 1 cap PO DAILY 12/24/20 [History Last Taken 12/24/20] Allergy/AdvReac Type Severity Reaction Status Date / Time No Known Allergies Allergy Verified 02/07/23 19:07 Family History no significant family his no significant family history Surgical History H/O dilation and curettage Hx of wisdom tooth extraction S/P Social History adopted: No household members: spouse and children housing: house number of children: 2 current occupational status: employed current occupation: [employer] current occupational exposures/hazards: No pets and animals: Yes (not managing litterbox) pets and animals: cat(s) and dog(s) history of recent travel: No sexually active: Yes Smoking Status: Never smoker alcohol intake: never substance use type: does not use well-balanced diet: daily or most days caffeine: Yes Type: carbonated beverages Number of servings: 1 eating out: 1-3 times/week during the past year weight has: remained stable what type of physical activity do you participate in: none khai/quaker: Hindu seatbelt use: always do you feel safe at home: Yes additional social history: 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 Date Name GA/Weeks Outcome Route Bth Weight Gen Labor Lgth Anesthesia Del Locatn Provider FOB 11/23/18 Elijah 38 live - full term 7lbs 4oz Male Juan F TJ 12/24/20 Rojas 35 live - 6lbs 4oz Male s manuel [facility] Dr. Dailey Delivery Date: 11/23/18 Last Updated by: Andie Breaux CAT II FHT Delivery Date: 12/24/20 Last Updated by: Delmy Welsh PPROM Visit Details Expected Delivery Route/Plan patient counseled regarding risks/benefits of trial of labor versus repeat . ACOG/uptodate education given to patient. She wishes to be educated more and think about a after 2 sections. 50/7% % likelihood of success per calculator TOLAC consent form signed: [] Plans Covid status: [] Flu vaccine: [] Tdap vaccine: [] Rhogam: [] LARC form signed: [] Problem list reviewed and updated with the most current plan of care details and appropriate orders placed. Relevant counseling for the gestational age provided. Continue routine care and follow up unless otherwise noted in visit notes/problem list details OB Flowsheet Initial Weight: Not Recorded Date -?-?-?-?-?-?-?-?-?-?-?-?- EGA Weight BP Urine Prot -?-?-?-?-?-?-?-?-?-?-?-?- Glucose FHR FuHt Pres Dilation -?-?-?-?-?-?-?-?-?-?-?-?- Effaced St Visit Note 11/08/22 -?-?-?-?-?-?-?-?-?-?-?-?- 9w 5d 166 lb 8 oz 147/88 -?-?-?-?-?-?-?-?-?-?-?-?- 189 -?-?-?-?-?-?-?-?-?-?-?-?- JV- 2.5 cm subch orionic hem present near the cervix. Single live IUP measuring 9weeks 5 days. New otf 06/08/22 11/24/22 -?-?-?-?-?-?-?-?-?-?-?-?- 12w 0d 171 lb 6 oz 138/81 Nega tive -?-?-?-?-?-?-?-?-?-?-?-?- Negative 155 -?-?-?-?-?-?-?-?-?-?-?-?- JV- no bleeding, patient has decided to do genetic testing. repeat ultrasound performed today. 12/23/22 -?-?-?-?-?-?-?-?-?-?-?-?- 16w 1d 172 lb 8 oz 150/88 Nega tive -?-?-?-?-?-?-?-?-?-?-?-?- Negative 156 -?-?-?-?-?--?-?-?-?-?-?-?- JV- no further b leeding. NOEMY resolved on today's ultrasound. anatomy scan scheduled. pt still has intermittent high blood pressure and c/o intermittent chest pressure. consulting cardiology and she is informed to go to ER next time has the pain. 01/25/23 -?-?-?-?-?-?-?-?-?-?-?-?- 20w 6d 182 lb 2 oz 128/80 Nega tive -?-?-?-?-?-?-?-?-?-?-?-?- Negative 149 -?-?-?-?-?-?-?-?-?-?-?-?- MH-No VB, LOF. A nterior placenta so just light kicks. No concerns ROS Constitutional Constitutional: Reports fatigue and headache(s); Denies fever(s) Eyes Eyes: Reports blurry vision bilateral, floaters and puffy eyes ENT HEENT: Reports headache(s) Cardiovascular Cardiovascular: Reports diaphoresis, dizziness, fatigue, lightheadedness and nausea; Denies chest pain or dyspnea Respiratory/Chest Respiratory/Chest: Denies change in mental status Gastrointestinal Gastrointestinal: Reports systems reviewed and no addt'l complaints, except as documented Genitourinary Genitourinary: Reports movement Details: present; Denies contractions or difficulty urinating Musculoskeletal Musculoskeletal: Reports systems reviewed and no addt'l complaints, except as documented Integumentary Integumentary: Reports systems reviewed and no addt'l complaints, except as documented Neurologic Neurologic: Reports dizziness, headache(s) and other visual disturbances Psychiatric Psychiatric: Reports anxiety Physical Exam Const alert, oriented x3 and no apparent distress Eyes no papilledema Resp normal respiratory effort, no retractions and no use of accessory muscles GI soft to palpation and non-tender Palpation: soft; Negative for tender Narrative: uterus soft on palpation, no contractions, + movement Manual OB Exam: estimated gestational size appropriate Extremity normal to inspection, full ROM, no calf tenderness and no pedal edema Peripheral Pulses: Yes pulses 2+ throughout Skin no rashes or lesions noted Neuro moves all extremities and deep tendon reflexes 2+ bilaterally Motor Exam: clonus present 1+ bilateral Psych mental status grossly normal Appearance: grossly normal Mood & Affect: anxious Assessment & Plan (1) Supervision of high risk , antepartum: COMMENT: [id number], OTF 06/19/23 Boy Rojas Narvaez TJ (2) : QUALIFIERS: Weeks of gestation: 16 weeks Qualified Code(s): Z3A.16 - 16 weeks gestation of COMMENT: NIPT low risk, discussed carrier testing. Anatomy US normal. (3) Anxiety: (4) Elevated blood pressure affecting , antepartum: PLAN: Chronic hypertension Pre Eclampsia nl Start Labetalol 200mg BID Home BP cuff Follow up with MFM Discussed with JFamilia. agrees with plan Charges/Coding Visit Charges Office Visits / Consults: 47937 OV L3 Est Multi Select Codes Urinary/Genital Urinary/Genital CPT Codes: 98483-40 non-stress test Interp
[2023-02-10 14:07] LABS: AST(SGOT) 16 U/L (15-37); Alanine Aminotransfer ALT/SGPT 15 U/L (13-56); Creatinine, Serum 0.64 mg/dL (0.55-1.02); EST Glomerular Filtration Rate 119 mL/min (>60); Est Glom Filt Rate - Afr Amer 144 mL/min (>60); Uric Acid 3.9 mg/dL (2.6-6.0)
[2023-02-10] MEDS: Labetalol 200 MG Tablet PO (15:09)
== END 2023-02-10 15:33 | disposition home or self-care (01) ==
LOC: WPOUT 12:49 → WP 12:50
PROVIDERS: Advanced Practice Midwife; Referring Provider Obstetrics & Gynecology; Visit Provider Obstetrics & Gynecology
DX: O16.2 Unspecified maternal hypertension, second trimester (principal); O99.342 Other mental disorders complicating pregnancy, second trimester; F41.9 Anxiety disorder, unspecified; O09.92 Supervision of high risk pregnancy, unspecified, second trimester; O34.219 Maternal care for unspecified type scar from previous cesarean delivery; O26.22 Pregnancy care for patient with recurrent pregnancy loss, second trimester; Z3A.16 16 weeks gestation of pregnancy
CPT/HCPCS: 36415; 82565; 82570; 84156; 84450; 84460; 84550; 85027; 99221; G0378

== ENCOUNTER → 2023-03-15 | Outpatient (CLI) | payer OTHER, SELFPAY ==
[2023-03-15 14:16] LABS: Absolute Lymphocyte Count 0.95 X10^3/uL (0.83-4.51); Absolute Neutrophil Count 10.2 X10^3/uL (2.0-7.7); Basophil# 0.02 X10^3/uL; Basophil% 0.2 % (0-1); Eosinophils% 0.8 % (0-5); Hematocrit 36.1 % (37-47); Hemoglobin 11.6 g/dL (12.0-15.0); Lymphocyte # 0.95 X10^3/ul (0.83-4.51); Lymphocyte % 7.6 % (19-41); Mean Corp Hgb Conc 32.1 g/dL (32-36); Mean Corpuscular Hgb 28.4 pg (27.0-32.0); Mean Corpuscular Volume 88.3 fL (81-99); Mean Platelet Vol. 10.5 fl (6.2-12.0); Monocyte% 8.8 % (0-10); NRBC Flagged by Analyzer 0 % (0-5); Neutrophil # 10.21 X10^3/uL (2.7-7.7); Neutrophil % 81.8 % (47-70); Platelet Count 170 K/mm3 (150-450); RBC Distribution Width CV 13.2 % (11.6-14.6); RBC Distribution Width SD 42.7 fl (35.1-43.9); Red Blood Count 4.09 M/mm3 (4.2-5.4); White Blood Count 12.5 K/mm3 (4.4-11.0)
[2023-03-15 15:06] LABS: Glucose Challenge Gest 1H 50g 123 mg/dL (70-140)
[2023-03-15 15:46] LABS: HIV - WCH Non-Reactive (Nonreactive); Syphilis Antibodies Non-reactive
== END | disposition home or self-care (01) ==
LOC: PAVLAB 13:36
PROVIDERS: Referring Provider Advanced Practice Midwife; Visit Provider Advanced Practice Midwife
DX: O09.90 Supervision of high risk pregnancy, unspecified, unspecified trimester (principal); Z3A.00 Weeks of gestation of pregnancy not specified; Z13.1 Encounter for screening for diabetes mellitus
CPT/HCPCS: 36415; 82950; 85025; 86703; 86780

== ENCOUNTER 2023-04-04 13:00 | Outpatient (CLI) | payer OTHER, SELFPAY ==
[2023-04-04 13:28] VITALS: PULSE 115; O2SAT 98
[2023-04-04 13:31] VITALS: BP 145/72; PULSE 102
[2023-04-04 13:35] VITALS: BMI 35.7
[2023-04-04 13:46] VITALS: BP 137/69; PULSE 102
[2023-04-04 13:52] VITALS: TEMP 37.2
[2023-04-04 14:01] VITALS: BP 132/67; PULSE 104
[2023-04-04 14:44] LABS: Color, Urine Yellow (Yellow); Glucose, Dipstick Normal (Normal); Ketone-Dipstick Negative (Negative); Leukocyte Esterase-Dipstick Negative /ul (Negative); Nitrite-Dipstick Negative (Negative); Occult Blood-Urine Negative /ul (Negative); Protein-Dipstick Negative (Negative); Specific Gravity, Urine 1.005 (1.002-1.030); Urine Bilirubin Dipstick Negative (Negative); Urine Clarity Clear (Clear); Urine Urobilinogen Normal (Normal)
--- NOTE | 2023-04-04 17:08 | OB.TRI.HP_ITS ---
HPI - General General Date of Service: 04/04/23 Chief Complaint: cramping and discomfort HPI Narrative CELIA MILLER, is a 27 F G 5P2 at 30.5 weeks who presents to labor and delivery for back pain, cramping and discomfort. Onset x 1 day. Maternal Data Information OTF Calculator Estimated Delivery Date Method Current WG Current Estimate 06/08/23 Ultrasound #2 30w 5d Other Estimates 06/19/23 LMP (Uncertain) 29w 1d Final OTF: 06/08/23 Final OTF Source: US >20 weeks Gestational age: 30weeks 5 days PFSH PFS Medical History Anxiety History of miscarriage Home Medications vitamin#30 30 mg iron-10 mg iron-folic acid 1 mg-omg3 capsule 1 cap PO DAILY 12/24/20 [History Last Taken 12/24/20] labetalol 200 mg tablet 50 mg PO BID bp 03/15/23 [History Last Taken 04/04/23 07:00] progesterone micronized 200 mg capsule (Prometrium) 200 mg vaginal ONCE 04/04/23 [History Last Taken 04/03/23 21:00] Allergy/AdvReac Type Severity Reaction Status Date / Time No Known Allergies Allergy Verified 04/04/23 13:38 Surgical History H/O dilation and curettage Hx of wisdom tooth extraction S/P Social History adopted: No household members: spouse and children housing: house number of children: 2 current occupational status: employed current occupation: [employer] current occupational exposures/hazards: No pets and animals: Yes (not managing litterbox) pets and animals: cat(s) and dog(s) history of recent travel: No sexually active: Yes Smoking Status: Never smoker alcohol intake: never substance use type: does not use well-balanced diet: daily or most days caffeine: Yes Type: carbonated beverages Number of servings: 1 eating out: 1-3 times/week during the past year weight has: remained stable what type of physical activity do you participate in: none khai/episcopal: Advent seatbelt use: always do you feel safe at home: Yes additional social history: 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 Date Name GA/Weeks Outcome Route Bth Weight Infant Gen Labor Lgth Anesthesia Del Locatn Provider FOB 11/23/18 Elijah 38 live - full term 7lbs 4oz Male Juan F TJ 12/24/20 Rojas 35 live - 6lbs 4oz Male s manuel [facility] Dr[facility] Dailey Delivery Date: 11/23/18 Last Updated by: Andie Breaux CAT II FHT Delivery Date: 12/24/20 Last Updated by: Delmy Welsh PPROM Visit Details Expected Delivery Route/Plan patient counseled regarding risks/benefits of trial of labor versus repeat . ACOG/uptodate education given to patient. She wishes to be educated more and think about a after 2 sections. 50/7% % likelihood of success per calculator TOLAC consent form signed: []1 Plans Covid status: [] Flu vaccine: [] Tdap vaccine: [] Rhogam:na LARC form signed: yes Problem list reviewed and updated with the most current plan of care details and appropriate orders placed. Relevant counseling for the gestational age provided. Continue routine care and follow up unless otherwise noted in visit notes/problem list details OB Flowsheet Initial Weight: Not Recorded Date -?-?-?-?-?-?-?-?-?-?-?-?- EGA Weight BP Urine Prot -?-?-?-?-?-?-?-?-?-?-?-?- Glucose FHR FuHt Pres Dilation -?-?-?-?-?-?-?-?-?-?-?-?- Effaced St Visit Note 11/08/22 -?-?-?-?-?-?-?-?-?-?-?-?- 9w 5d 166 lb 8 oz 147/88 -?-?-?-?-?-?-?-?-?-?-?-?- 189 -?-?-?-?-?-?-?-?-?-?-?-?- JV- 2.5 cm subch orionic hem present near the cervix. Single live IUP measuring 9weeks 5 days. New otf 06/08/22 11/24/22 -?-?-?-?-?-?-?-?-?-?-?-?- 12w 0d 171 lb 6 oz 138/81 Nega tive -?-?-?-?-?-?-?-?-?-?-?-?- Negative 155 -?-?-?-?-?-?-?-?-?-?-?-?- JV- no bleeding, patient has decided to do genetic testing. repeat ultrasound performed today. 12/23/22 -?-?-?-?-?-?-?-?-?-?-?-?- 16w 1d 172 lb 8 oz 150/88 Nega tive -?-?-?-?-?-?-?-?-?-?-?-?- Negative 156 -?-?-?-?-?-?-?-?-?-?-?-?- JV- no further b leeding. NOEMY resolved on today's ultrasound. anatomy scan scheduled. pt still has intermittent high blood pressure and c/o intermittent chest pressure. consulting cardiology and she is informed to go to ER next time has the pain. 01/25/23 -?-?-?-?-?-?-?-?-?-?-?-?- 20w 6d 182 lb 2 oz 128/80 Nega tive -?-?-?-?-?-?-?-?-?-?-?-?- Negative 149 -?-?-?-?-?-?-?-?-?-?-?-?- MH-No VB, LOF. A nterior placenta so just light kicks. No concerns 02/17/23 -?-?-?-?-?-?-?-?-?-?-?-?- 24w 1d 188 lb 8 oz 136/85 Nega tive -?-?-?-?-?-?-?-?-?-?-?-?- Negative 155 -?-?-?-?-?-?-?-?-?-?-?-?- KW-no lof/vb/ctx . +fm Planning Tdap, and 28 week labs. to track BPs at home and start vaginal progesterone. SHe would like to try a with this . Sign TOLAC form next visit. 03/15/23 -?-?-?-?-?-?-?-?-?-?-?-?- 27w 6d 195 lb 8 oz 134/80 Nega tive -?-?-?-?-?-?-?-?-?-?-?-?- Negative 150 28 -?-?-?-?-?-?-?-?-?-?-?-?- MH-No VB, lof. G ood FM. 28 wk labs, larc. 03/31/23 -?-?-?-?-?-?-?-?-?-?-?-?- 30w 1d 202 lb 147/73 135/81 Negative -?-?-?-?-?-?-?-?-?-?-?-?- Negative 140 30 -?-?-?-?-?-?-?-?-?-?-?-?- SM- no vb lof go od fm nor egualr ctx. discussed plan of delivery by 37 recommend RLTCS unless very favorable for IOL. 04/04/23 -?-?-?-?-?-?-?-?-?-?-?-?- 30w 5d 202 lb 145/72 137/69 132/67 Negative mg/dl (Nega tive) -?-?-?-?-?-?-?-?-?-?-?-?- -?-?-?-?-?-?-?-?-?-?-?-?- ROS Constitutional Constitutional: Reports systems reviewed and no addt'l complaints, except as documented Cardiovascular Cardiovascular: Reports systems reviewed and no addt'l complaints, except as documented; Denies chest pain, dyspnea or lightheadedness Respiratory/Chest Respiratory/Chest: Reports systems reviewed and no addt'l complaints, except as documented; Denies shortness of breath at rest Gastrointestinal Gastrointestinal: Reports systems reviewed and no addt'l complaints, except as documented Genitourinary Genitourinary: Reports systems reviewed and no addt'l complaints, except as documented Musculoskeletal Musculoskeletal: Reports systems reviewed and no addt'l complaints, except as documented Integumentary Integumentary: Reports systems reviewed and no addt'l complaints, except as documented Neurologic Neurologic: Reports systems reviewed and no addt'l complaints, except as documented Psychiatric Psychiatric: Reports systems reviewed and no addt'l complaints, except as documented Physical Exam Const alert, oriented x3 and no apparent distress General Appearance: cooperative Neck full ROM Resp normal respiratory effort, no retractions and no use of accessory muscles GI soft to palpation and non-tender external exam normal, appearance of the vagina normal, appearance of the cervix normal and bimanual exam normal Manual OB Exam: dilated 0 Back/Spine no CVA tenderness Extremity normal to inspection Neuro moves all extremities Psych mental status grossly normal NST FHR Rate Baby A Baseline: 150 Variability:: Moderate Accelerations:: 15 x 15 Decelerations:: None NST Reactive:: Yes FHR Category:: Category I Uterine Activity:: none Assessment & Plan (1) Gestational hypertension: COMMENT: Growth US q 4 weeks at 28 weeks. NSTs-2x weekly starting at 32 weeks. Continue Labetalol. home BPs 2 x daily per MFM. (2) Hx of delivery, currently : COMMENT: vaginal progesterone 200mg until 37 weeks PLAN: sterile speculum exam done. cervix closed. encouraged oral hydration labor precautions reviewed. If still not feeling well tomorrow RTO for visit (3) History of delivery: COMMENT: history of 2 sections. first was for unknown reason per patient and 2nd was repeat section for srom at 35 weeks. wants to discuss . chance of success 50% (4) Supervision of high risk , antepartum: COMMENT: [id number], OTF 06/19/23 Vahe Durbin! Rojas Narvaez TJ (5) : QUALIFIERS: Weeks of gestation: 30 weeks Qualified Code(s): Z3A.30 - 30 weeks gestation of COMMENT: NIPT low risk, discussed carrier testing. Anatomy US normal. Charges/Coding Multi Select Codes Visit Charges Office Visit/Consults: 12078 OV L3 Est Urinary/Genital Urinary/Genital CPT Codes: 37046-83 non-stress test Interp
== END 2023-04-04 14:30 | disposition home or self-care (01) ==
LOC: WPOUT 13:13 → WP 13:14
PROVIDERS: Referring Provider Advanced Practice Midwife; Visit Provider Advanced Practice Midwife
DX: O99.891 Other specified diseases and conditions complicating pregnancy (principal); O13.3 Gestational [pregnancy-induced] hypertension without significant proteinuria, third trimester; Z3A.30 30 weeks gestation of pregnancy; M54.9 Dorsalgia, unspecified; R25.2 Cramp and spasm; Z79.899 Other long term (current) drug therapy; Z87.51 Personal history of pre-term labor
CPT/HCPCS: 59025; 59050; 81002; 87086; 87088; 99221; G0378

== ENCOUNTER → 2023-04-11 | Outpatient (CLI) | payer OTHER, SELFPAY ==
--- NOTE | 2023-04-11 11:37 | US_ITS ---
INDICATION: growth EXAMINATION: US OB Limited 1 Or More Fetus TECHNIQUE: Transabdominal pelvic obstetric ultrasound was performed. COMPARISON: Pelvic ultrasound from 10/27/2022 FINDINGS: Single live intrauterine fetus in vertex presentation with heart rate 152 bpm. Grade 1 anterior placenta appears intact with no placenta previa. Closed cervix measures 4.8 cm in length. Amniotic fluid index within normal limits, 18.1 cm. Maternal adnexa not imaged. anatomic survey not performed. Estimated gestational age of 33 weeks 2 days based on biometrics with OTF of 05/28/2023. Clinical age of 31 weeks 5 days with OTF of 06/08/2023. Estimated weight 2275 g (5 lbs. 0 oz.), 93rd percentile. BIOMETRIC MEASUREMENTS: BIPARIETAL DIAMETER: 8.42 cm which corresponds to 33 weeks 6 days. HEAD CIRCUMFERENCE: 30.39 cm which corresponds to 33 weeks 6 days. ABDOMINAL CIRCUMFERENCE: 31.09 cm which corresponds to 35 weeks 0 days. FEMORAL LENGTH: 5.92 cm which corresponds to 30 weeks 6 days. US/OB Limited With Biometrics IMPRESSION: Single live intrauterine with no acute abnormality. Clinical age of 31 weeks 5 days with today''s ultrasound age of 33 weeks 2 days. Electronically Signed: Ken Luz MD at 22:42 EDT ,
== END | disposition home or self-care (01) ==
LOC: US 11:18
PROVIDERS: Referring Provider Nurse Practitioner Women's Health; Visit Provider Nurse Practitioner Women's Health
DX: O16.9 Unspecified maternal hypertension, unspecified trimester (principal)
CPT/HCPCS: 76816

== ENCOUNTER → 2023-04-14 | Outpatient (CLI) | payer OTHER, SELFPAY ==
[2023-04-14 12:33] LABS: Absolute Lymphocyte Count 1.41 X10^3/uL (0.83-4.51); Absolute Neutrophil Count 11.3 X10^3/uL (2.0-7.7); Basophil# 0.02 X10^3/uL; Basophil% 0.1 % (0-1); Eosinophil# 0.13 X10^3/uL; Eosinophils% 0.9 % (0-5); Hematocrit 36.8 % (37-47); Lymphocyte # 1.41 X10^3/ul (0.83-4.51); Lymphocyte % 10.1 % (19-41); Mean Corp Hgb Conc 32.6 g/dL (32-36); Mean Corpuscular Hgb 29.1 pg (27.0-32.0); Mean Corpuscular Volume 89.1 fL (81-99); Mean Platelet Vol. 10.9 fl (6.2-12.0); Monocyte# 0.96 X10^3/uL; Monocyte% 6.9 % (0-10); NRBC Flagged by Analyzer 0 % (0-5); Neutrophil # 11.28 X10^3/uL (2.7-7.7); Neutrophil % 81.3 % (47-70); Platelet Count 167 K/mm3 (150-450); RBC Distribution Width CV 13.8 % (11.6-14.6); RBC Distribution Width SD 44.6 fl (35.1-43.9); Red Blood Count 4.13 M/mm3 (4.2-5.4); White Blood Count 13.9 K/mm3 (4.4-11.0)
[2023-04-14 13:02] LABS: Protein, Urine (Random) 9.4 mg/dL (<11.9); Protein:Creat Ratio 584 mg/g CRE (0-200)
[2023-04-14 13:12] LABS: ALB/GLOB Ratio 0.7 RATIO (0.9-2.4); AST(SGOT) 20 U/L (15-37); Alanine Aminotransfer ALT/SGPT 22 U/L (13-56); Albumin, Serum 2.9 g/dL (3.2-5.0); Alkaline Phosphatase 122 U/L (45-117); Anion Gap 8 (5-15); BUN 7 mg/dL (7-18); BUN/Creat Ratio 14.2 RATIO (10-20); Calcium,Total 8.8 mg/dL (8.5-10.1); Chloride 107 mmol/L (98-107); Creatinine, Serum 0.49 mg/dL (0.55-1.02); EST Glomerular Filtration Rate 162 mL/min (>60); Est Glom Filt Rate - Afr Amer 196 mL/min (>60); Globulin 4.3 g/dL (2.2-4.2); Glucose 75 mg/dL (74-106); Protein, Total 7.2 g/dL (6.4-8.2); Sodium Level 139 mmol/L (136-145)
== END | disposition home or self-care (01) ==
LOC: LAB 11:38
PROVIDERS: Visit Provider Obstetrics & Gynecology
DX: O13.9 Gestational [pregnancy-induced] hypertension without significant proteinuria, unspecified trimester (principal); Z3A.00 Weeks of gestation of pregnancy not specified
CPT/HCPCS: 36415; 80053; 82570; 84156; 85025

== ENCOUNTER 2023-04-18 15:47 | Outpatient (CLI) | payer OTHER, SELFPAY ==
[2023-04-18 16:13] LABS: Absolute Lymphocyte Count 1.53 X10^3/uL (0.83-4.51); Absolute Neutrophil Count 12.7 X10^3/uL (2.0-7.7); Basophil# 0.03 X10^3/uL; Basophil% 0.2 % (0-1); Eosinophil# 0.13 X10^3/uL; Eosinophils% 0.8 % (0-5); Hematocrit 37.4 % (37-47); Hemoglobin 12.3 g/dL (12.0-15.0); Lymphocyte # 1.53 X10^3/ul (0.83-4.51); Lymphocyte % 9.7 % (19-41); Mean Corp Hgb Conc 32.9 g/dL (32-36); Mean Corpuscular Hgb 29.1 pg (27.0-32.0); Mean Corpuscular Volume 88.4 fL (81-99); Mean Platelet Vol. 10.7 fl (6.2-12.0); Monocyte# 1.22 X10^3/uL; Monocyte% 7.8 % (0-10); NRBC Flagged by Analyzer 0 % (0-5); Neutrophil # 12.67 X10^3/uL (2.7-7.7); Neutrophil % 80.7 % (47-70); Platelet Count 177 K/mm3 (150-450); RBC Distribution Width CV 13.8 % (11.6-14.6); RBC Distribution Width SD 44.6 fl (35.1-43.9); Red Blood Count 4.23 M/mm3 (4.2-5.4); White Blood Count 15.7 K/mm3 (4.4-11.0)
[2023-04-18] MEDS: Betamethasone/Betamethasone 30 MG/5 ML Vial 12 MG IM (16:20)
[2023-04-18 16:22] LABS: Protein, Urine (Random) < 6.0 mg/dL (<11.9); Protein:Creat Ratio 325 mg/g CRE (0-200)
[2023-04-18 16:44] LABS: ALB/GLOB Ratio 0.7 RATIO (0.9-2.4); AST(SGOT) 18 U/L (15-37); Alanine Aminotransfer ALT/SGPT 22 U/L (13-56); Albumin, Serum 3.1 g/dL (3.2-5.0); Alkaline Phosphatase 125 U/L (45-117); Anion Gap 8 (5-15); BUN 8 mg/dL (7-18); Chloride 106 mmol/L (98-107); Creatinine, Serum 0.62 mg/dL (0.55-1.02); EST Glomerular Filtration Rate 125 mL/min (>60); Est Glom Filt Rate - Afr Amer 152 mL/min (>60); Globulin 4.4 g/dL (2.2-4.2); Glucose 80 mg/dL (74-106); Potassium 3.5 mmol/L (3.5-5.1); Protein, Total 7.5 g/dL (6.4-8.2); Sodium Level 139 mmol/L (136-145)
--- NOTE | 2023-04-18 20:57 | OB.TRI.PN ---
Progress Notes Date of Service: 04/18/23 Progress Note: To WP for Celestone injection at 32.5 weeks for dx of preeclampsia without severe features and history of previous delivery. Repeat dose in 24 hours. Laboratory Studies: Laboratory Tests 04/18/23 04/18/23 04/18/23 Range/Units 15:59 15:50 15:50 WBC 15.7 H (4.4-11.0) K/mm3 RBC 4.23 (4.2-5.4) M/mm3 Hgb 12.3 (12.0-15.0) g/dL Hct 37.4 (37-47) % MCV 88.4 (81-99) fL MCH 29.1 (27.0-32.0) pg MCHC 32.9 (32-36) g/dL RDW Std Deviation 44.6 H (35.1-43.9) fl RDW Coeff of Sherif 13.8 (11.6-14.6) % Plt Count 177 (150-450) K/mm3 MPV 10.7 (6.2-12.0) fl Immature Gran % (Auto) 0.800 (0.0-0.9) % Neut % (Auto) 80.7 H (47-70) % Lymph % (Auto) 9.7 L (19-41) % Cavalier % (Auto) 7.8 (0-10) % Eos % (Auto) 0.8 (0-5) % Baso % (Auto) 0.2 (0-1) % Absolute Neuts (auto) 12.7 H (2.0-7.7) X10^3/uL Absolute Lymphs (auto) 1.53 (0.83-4.51) X10^3/uL Nucleated RBC % 0 (0-5) % Sodium 139 (136-145) mmol/L Potassium 3.5 (3.5-5.1) mmol/L Chloride 106 (98-107) mmol/L Carbon Dioxide 25.0 (21.0-32.0) mmol/L Anion Gap 8 (5-15) BUN 8 (7-18) mg/dL Creatinine 0.62 (0.55-1.02) mg/dL Est GFR (MDRD) Af Amer 152 (>60) mL/min Est GFR (MDRD) Non-Af 125 (>60) mL/min BUN/Creatinine Ratio 13.0 (10-20) RATIO Glucose 80 (74-106) mg/dL Calcium 9.0 (8.5-10.1) mg/dL Total Bilirubin 0.20 (0.20-1.00) mg/dL AST 18 (15-37) U/L ALT 22 (13-56) U/L Alkaline Phosphatase 125 H (45-117) U/L Total Protein 7.5 (6.4-8.2) g/dL Albumin 3.1 L (3.2-5.0) g/dL Globulin 4.4 H (2.2-4.2) g/dL Albumin/Globulin Ratio 0.7 L (0.9-2.4) RATIO U Random Total Protein < 6.0 (<11.9) mg/dL Urine Creatinine 16.00 (NO RANGE EST.) mg/dL Protein/Creatinin Ratio 325 H (0-200) mg/g CRE Charges/Coding Procedures Urinary/Genital [id number]: No Charge Assessment & Plan (1) 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: COMMENT: Growth US q 4 weeks at 28 weeks. NSTs-2x weekly starting at 32 weeks. Continue Labetalol. home BPs 2 x daily per MFM. weekly labs (2) Hx of delivery, currently : COMMENT: vaginal progesterone 200mg until 37 weeks (3) History of delivery: COMMENT: history of 2 sections. first was for unknown reason per patient and 2nd was repeat section for srom at 35 weeks. wants to discuss . chance of success 50% (4) Supervision of high risk , antepartum: COMMENT: [id number], OTF 06/19/23 Vahe Durbin! PC Rojas Nava TJ (5) : QUALIFIERS: Weeks of gestation: 32 weeks Qualified Code(s): Z3A.32 - 32 weeks gestation of COMMENT: NIPT low risk, discussed carrier testing. Anatomy US normal.
== END 2023-04-18 16:30 | disposition home or self-care (01) ==
LOC: LAB 15:48 → WPOUT 15:58 → WP 15:58
PROVIDERS: Referring Provider Advanced Practice Midwife; Visit Provider Advanced Practice Midwife
DX: O14.93 Unspecified pre-eclampsia, third trimester (principal); Z3A.32 32 weeks gestation of pregnancy
CPT/HCPCS: 36415; 80053; 82570; 84156; 85025; J0702

== ENCOUNTER 2023-04-19 15:54 | Outpatient (CLI) | payer OTHER, SELFPAY ==
[2023-04-19 16:08] VITALS: BP 145/83; PULSE 109
[2023-04-19] MEDS: Betamethasone/Betamethasone 30 MG/5 ML Vial 12 MG IM (16:15)
[2023-04-19 16:31] VITALS: BP 140/76; PULSE 109
[2023-04-19 16:48] VITALS: BP 140/76; PULSE 114
--- NOTE | 2023-04-19 19:02 | OB.TRI.NOTE ---
HPI - General HPI Narrative CELIA MILLER, is a 27 y/o who presents to L&D for scheduled celestone injection for contractions without cervical change at 33 weeks gestation. Maternal Data Information OTF Calculator Estimated Delivery Date Method Current WG Current Estimate 06/08/23 Ultrasound #2 35w 2d Other Estimates 06/19/23 LMP (Uncertain) 33w 5d PFSH PFSH Medical History Anxiety History of miscarriage Home Medications vitamin#30 30 mg iron-10 mg iron-folic acid 1 mg-omg3 capsule 1 cap PO DAILY 12/24/20 [History Last Taken 05/02/23 07:00] labetalol 200 mg tablet 50 mg PO BID bp 03/15/23 [History Last Taken 05/02/23 07:00] progesterone micronized 200 mg capsule (Prometrium) 200 mg vaginal ONCE 04/04/23 [History Last Taken 04/29/23 08:00] aspirin 81 mg PO/SL DAILY 04/30/23 [History Last Taken 05/01/23 19:00] Allergy/AdvReac Type Severity Reaction Status Date / Time No Known Allergies Allergy Verified 05/05/23 11:30 Surgical History H/O dilation and curettage Hx of wisdom tooth extraction S/P Social History adopted: No household members: spouse and children housing: house number of children: 2 current occupational status: employed 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 current occupational exposures/hazards: No pets and animals: Yes (not managing litterbox) pets and animals: cat(s) and dog(s) history of recent travel: No sexually active: Yes Smoking Status: Never smoker alcohol intake: never substance use type: does not use well-balanced diet: daily or most days caffeine: Yes Type: carbonated beverages Number of servings: 1 eating out: 1-3 times/week during the past year weight has: remained stable what type of physical activity do you participate in: none khai/mandaeism: Lutheran seatbelt use: always do you feel safe at home: Yes 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 Date Name GA/Weeks Outcome Route Bth Weight Gen Labor Lgth Anesthesia Del Locatn Provider FOB 11/23/18 Elijah 38 live - full term 7lbs 4oz Male Emmet TJ 12/24/20 Rojas 35 live - 6lbs 4oz Male spinal [facility] Dr. Dailey Delivery Date: 11/23/18 Last Updated by: Andie Breaux CAT II FHT Delivery Date: 12/24/20 Last Updated by: Delmy Welsh PPROM Visit Details Expected Delivery Route/Plan patient counseled regarding risks/benefits of trial of labor versus repeat . ACOG/uptodate education given to patient. She wishes to be educated more and think about a after 2 sections. 50/7% % likelihood of success per calculator TOLAC consent form signed: []1 Plans Covid status: discussed Flu vaccine: discussed Tdap vaccine: given Rhogam:na LARC form signed: yes movement and labor precautions reviewed. Problem list reviewed and updated with the most current plan of care details and appropriate orders placed. Relevant counseling for the gestational age provided. Continue routine care and follow up unless otherwise noted in visit notes/problem list details OB Flowsheet Initial Weight: Not Recorded Date <del>?</del> EGA Weight BP Urine Prot <del>?</del> Glucose FHR FuHt Pres Dilation <del>?</del> Effaced St Visit Note 11/08/22 <del>?</del> 9w 5d 166 lb 8 oz 147/88 <del>?</del> 189 <del>?</del> JV- 2.5 cm subchorionic hem present near the cervix. Single live IUP measuring 9weeks 5 days. New otf 06/08/22 11/24/22 <del>?</del> 12w 0d 171 lb 6 oz 138/81 Negative <del>?</del> Negative 155 <del>?</del> JV- no bleeding, patient has decided to do genetic testing. repeat ultrasound performed today. 12/23/22 <del>?</del> 16w 1d 172 lb 8 oz 150/88 Negative <del>?</del> Negative 156 <del>?</del> JV- no further bleeding. NOEMY resolved on today's ultrasound. anatomy scan scheduled. pt still has intermittent high blood pressure and c/o intermittent chest pressure. consulting cardiology and she is informed to go to ER next time has the pain. 01/25/23 <del>?</del> 20w 6d 182 lb 2 oz 128/80 Negative <del>?</del> Negative 149 <del>?</del> MH-No VB, LOF. Anterior placenta so just light kicks. No concerns 02/17/23 <del>?</del> 24w 1d 188 lb 8 oz 136/85 Negative <del>?</del> Negative 155 <del>?</del> KW-no lof/vb/ctx. +fm Planning Tdap, and 28 week labs. to track BPs at home and start vaginal progesterone. SHe would like to try a with this . Sign TOLAC form next visit. 03/15/23 <del>?</del> 27w 6d 195 lb 8 oz 134/80 Negative <del>?</del> Negative 150 28 <del>?</del> MH-No VB, lof. Good FM. 28 wk labs, larc. 03/31/23 <del>?</del> 30w 1d 202 lb 147/73 135/81 Negative <del>?</del> Negative 140 30 <del>?</del> SM- no vb lof good fm nor egualr ctx. discussed plan of delivery by 37 recommend RLTCS unless very favorable for IOL. 04/11/23 <del>?</del> 31w 5d 201 lb 8 oz 137/81 Negative <del>?</del> Negative 140 <del>?</del> SM- no vb lof goo dfm no regular ctx labs ordered 04/14/23 <del>?</del> 32w 1d 206 lb 2 oz 133/76 Negative <del>?</del> Negative 140 <del>?</del> JV- reactive NST. growth 93rd %. needs pih labs weekly. bp stable today 04/18/23 <del>?</del> 32w 5d 206 lb 130/60 Negative <del>?</del> Negative 140 <del>?</del> KW-+FM, no lof/vb/ctx. PCR increased last visit. repeat labs and Celestone. reactive NST KW-+FM, no lof/vb/ctx. tdap today. PCR increased last visit. repeat labs and Celestone. reactive NST discusses POC with SM. 04/24/23 <del>?</del> 33w 4d 205 lb 130/89 Negative <del>?</del> Negative 150 <del>?</del> SM- no vb lof good fm no reuglar ctx just cramping and loose stoole no PARRY BV pree labs today schedule US in 2 weeks 04/27/23 <del>?</del> 34w 0d 206 lb 4 oz 128/70 Negative <del>?</del> Negative 140 <del>?</del> SM- no PARRY BV vb lof good fm no regular ctx 05/02/23 <del>?</del> 34w 5d 210 lb 4 oz 137/84 Negative <del>?</del> Negative 160 <del>?</del> MH-NST only reactive 05/05/23 <del>?</del> 35w 1d 210 lb 137/78 137/78 Negative <del>?</del> Negative 175 <del>?</del> KW-+FM and cramping, no vb/lof. nonreactive NST-to WP-JV aware Assessment & Plan (1) Anxiety: COMMENT: stable (2) : QUALIFIERS: Weeks of gestation: 35 weeks Qualified Code(s): Z3A.35 - 35 weeks gestation of COMMENT: NIPT low risk, discussed carrier testing. Anatomy US normal. (3) Supervision of high risk , antepartum: COMMENT: [id number], OTF 06/19/23 Vahe Durbin! Rojas Narvaez TJ (4) Seasonal allergies: COMMENT: all year (5) History of delivery: COMMENT: history of 2 sections. first was for unknown reason per patient and 2nd was repeat section for srom at 35 weeks. wants to discuss . chance of success 50% (6) Hx of delivery, currently : COMMENT: vaginal progesterone 200mg until 37 weeks (7) Desires (vaginal after ) trial: COMMENT: 15%- discussed with pt. plan RLTCS at 37 due to GHTN unless labor or very favorable cervix. RLTCS scheduled for 05/19 @ 7:10 with SM (8) 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: COMMENT: Growth US q 4 weeks at 28 weeks. NSTs-2x weekly starting at 32 weeks. Continue Labetalol. home BPs 2 x daily per MFM. weekly labs (9) Gestational thrombocytopenia: COMMENT: discussed with MFM on 05/05. no need to deliver prior to 37 weeks unless plts less than 100k and other signs leading to diagnosis of hellp. rpt labs week of 05/08
--- NOTE | 2023-04-19 19:02 | OB.TRI.HP_ITS ---
HPI - General HPI Narrative CELIA MILLER, is a 27 y/o who presents to L&D for scheduled celestone injection for contractions without cervical change at 33 weeks gestation. Maternal Data Information OTF Calculator Estimated Delivery Date Method Current WG Current Estimate 06/08/23 Ultrasound #2 35w 2d Other Estimates 06/19/23 LMP (Uncertain) 33w 5d PFSH PFSH Medical History Anxiety History of miscarriage Home Medications vitamin#30 30 mg iron-10 mg iron-folic acid 1 mg-omg3 capsule 1 cap PO DAILY 12/24/20 [History Last Taken 05/02/23 07:00] labetalol 200 mg tablet 50 mg PO BID bp 03/15/23 [History Last Taken 05/02/23 07 :00] progesterone micronized 200 mg capsule (Prometrium) 200 mg vaginal ONCE 04/04/23 [History Last Taken 04/29/23 08:00] aspirin 81 mg PO/SL DAILY 04/30/23 [History Last Taken 05/01/23 19:00] Allergy/AdvReac Type Severity Reaction Status Date / Time No Known Allergies Allergy Verified 05/05/23 11:30 Surgical History H/O dilation and curettage Hx of wisdom tooth extraction S/P Social History adopted: No household members: spouse and children housing: house number of children: 2 current occupational status: employed 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 current occupational exposures/hazards: No pets and animals: Yes (not managing litterbox) pets and animals: cat(s) and dog(s) history of recent travel: No sexually active: Yes Smoking Status: Never smoker alcohol intake: never substance use type: does not use well-balanced diet: daily or most days caffeine: Yes Type: carbonated beverages Number of servings: 1 eating out: 1-3 times/week during the past year weight has: remained stable what type of physical activity do you participate in: none khai/sikh: Oriental Orthodox seatbelt use: always do you feel safe at home: Yes 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 Date Name GA/Weeks Outcome Route Bth Weight Gen Labor Lgth Anesthesia Del Locatn Provider FOB 11/23/18 Elijah 38 live - full term 7lbs 4oz Male Juan F TJ 12/24/20 Rojas 35 live - 6lbs 4oz Male s manuel [facility] Dr. Dailey Delivery Date: 11/23/18 Last Updated by: Andie Breaux CAT II FHT Delivery Date: 12/24/20 Last Updated by: Delmy Welsh PPROM Visit Details Expected Delivery Route/Plan patient counseled regarding risks/benefits of trial of labor versus repeat . ACOG/uptodate education given to patient. She wishes to be educated more and think about a after 2 sections. 50/7% % likelihood of success per calculator TOLAC consent form signed: []1 Plans Covid status: discussed Flu vaccine: discussed Tdap vaccine: given Rhogam:na LARC form signed: yes movement and labor precautions reviewed. Problem list reviewed and updated with the most current plan of care details and appropriate orders placed. Relevant counseling for the gestational age provided. Continue routine care and follow up unless otherwise noted in visit notes/problem list details OB Flowsheet Initial Weight: Not Recorded Date -?-?-?-?-?-?-?-?-?-?-?-?- EGA Weight BP Urine Prot -?-?-?-?-?-?-?-?-?-?-?-?- Glucose FHR FuHt Pres Dilation -?-?-?-?-?-?-?-?-?-?-?-?- Effaced St Visit Note 11/08/22 -?-?-?-?-?-?-?-?-?-?-?-?- 9w 5d 166 lb 8 oz 147/88 -?-?-?-?-?-?-?-?-?-?-?-?- 189 -?-?-?-?-?-?-?-?-?-?-?-?- JV- 2.5 cm subch orionic hem present near the cervix. Single live IUP measuring 9weeks 5 days. New otf 06/08/22 11/24/22 -?-?-?-?-?-?-?-?-?-?-?-?- 12w 0d 171 lb 6 oz 138/81 Nega tive -?-?-?-?-?-?-?-?-?-?-?-?- Negative 155 -?-?-?-?-?-?-?-?-?-?-?-?- JV- no bleeding, patient has decided to do genetic testing. repeat ultrasound performed today. 12/23/22 -?-?-?-?-?-?-?-?-?-?-?-?- 16w 1d 172 lb 8 oz 150/88 Nega tive -?-?-?-?-?-?-?-?-?-?-?-?- Negative 156 -?-?-?-?-?-?-?-?-?-?-?-?- JV- no further b leeding. NOEMY resolved on today's ultrasound. anatomy scan scheduled. pt still has intermittent high blood pressure and c/o intermittent chest pressure. consulting cardiology and she is informed to go to ER next time has the pain. 01/25/23 -?-?-?-?-?-?-?-?-?-?-?-?- 20w 6d 182 lb 2 oz 128/80 Nega tive -?-?-?-?-?-?-?-?-?-?-?-?- Negative 149 -?-?-?-?-?-?-?-?-?-?-?-?- MH-No VB, LOF. A nterior placenta so just light kicks. No concerns 02/17/23 -?-?-?-?-?-?-?-?-?-?-?-?- 24w 1d 188 lb 8 oz 136/85 Nega tive -?-?-?-?-?-?-?-?-?-?-?-?- Negative 155 -?-?-?-?-?-?-?-?-?-?-?-?- KW-no lof/vb/ctx . +fm Planning Tdap, and 28 week labs. to track BPs at home and start vaginal progesterone. SHe would like to try a with this . Sign TOLAC form next visit. 03/15/23 -?-?-?-?-?-?-?-?-?-?-?-?- 27w 6d 195 lb 8 oz 134/80 Nega tive -?-?-?-?-?-?-?-?-?-?-?-?- Negative 150 28 -?-?-?-?-?-?-?-?-?-?-?-?- MH-No VB, lof. G ood FM. 28 wk labs, larc. 03/31/23 -?-?-?-?-?-?-?-?-?-?-?-?- 30w 1d 202 lb 147/73 135/81 Negative -?-?-?-?-?-?-?-?-?-?-?-?- Negative 140 30 -?-?-?-?-?-?-?-?-?-?-?-?- SM- no vb lof go od fm nor egualr ctx. discussed plan of delivery by 37 recommend RLTCS unless very favorable for IOL. 04/11/23 -?-?-?-?-?-?-?-?-?-?-?-?- 31w 5d 201 lb 8 oz 137/81 Nega tive -?-?-?-?-?-?-?-?-?-?-?-?- Negative 140 -?-?-?-?-?-?-?-?-?-?-?-?- SM- no vb lof go o dfm no regular ctx labs ordered 04/14/23 -?-?-?-?-?-?-?-?-?-?-?-?- 32w 1d 206 lb 2 oz 133/76 Nega tive -?-?-?-?-?-?-?-?-?-?-?-?- Negative 140 -?-?-?-?-?-?-?-?-?-?-?-?- JV- reactive NST . growth 93rd %. needs pih labs weekly. bp stable today 04/18/23 -?-?-?-?-?-?-?-?-?-?-?-?- 32w 5d 206 lb 130/60 Negative -?-?-?-?-?-?-?-?-?-?-?-?- Negative 140 -?-?-?-?-?-?-?-?-?-?-?-?- KW-+FM, no lof/v b/ctx. PCR increased last visit. repeat labs and Celestone. reactive NST KW-+FM, no lof/vb/ctx. tdap today. PCR increased last visit. repeat labs and Celestone. reactive NST discusses POC with SM. 04/24/23 -?-?-?-?-?-?-?-?-?-?-?-?- 33w 4d 205 lb 130/89 Negative -?-?-?-?-?-?-?-?-?-?-?-?- Negative 150 -?-?-?-?-?-?-?-?-?-?-?-?- SM- no vb lof go od fm no reuglar ctx just cramping and loose stoole no PARRY BV pree labs today schedule US in 2 weeks 04/27/23 -?-?-?-?-?-?-?-?-?-?-?-?- 34w 0d 206 lb 4 oz 128/70 Nega tive -?-?-?-?-?-?-?-?-?-?-?-?- Negative 140 -?-?-?-?-?-?-?-?-?-?-?-?- SM- no PARRY BV vb lof good fm no regular ctx 05/02/23 -?-?-?-?-?-?-?-?-?-?-?-?- 34w 5d 210 lb 4 oz 137/84 Nega tive -?-?-?-?-?-?-?-?-?-?-?-?- Negative 160 -?-?-?-?-?-?-?-?-?-?-?-?- MH-NST only reac tive 05/05/23 -?-?-?-?-?-?-?-?-?-?-?-?- 35w 1d 210 lb 137/78 137/78 Negative -?-?-?-?-?-?-?-?-?-?-?-?- Negative 175 -?-?-?-?-?-?-?-?-?-?-?-?- KW-+FM and cramp ing, no vb/lof. nonreactive NST-to WP-JV aware Assessment & Plan (1) Anxiety: COMMENT: stable (2) : QUALIFIERS: Weeks of gestation: 35 weeks Qualified Code(s): Z3A.35 - 35 weeks gestation of COMMENT: NIPT low risk, discussed carrier testing. Anatomy US normal. (3) Supervision of high risk , antepartum: COMMENT: [id number], OTF 06/19/23 Vahe Durbin! PC Rojas Nava TJ (4) Seasonal allergies: COMMENT: all year (5) History of delivery: COMMENT: history of 2 sections. first was for unknown reason per patient and 2nd was repeat section for srom at 35 weeks. wants to discuss . chance of success 50% (6) Hx of delivery, currently : COMMENT: vaginal progesterone 200mg until 37 weeks (7) Desires (vaginal after ) trial: COMMENT: 15%- discussed with pt. plan RLTCS at 37 due to GHTN unless labor or very favorable cervix. RLTCS scheduled for 05/19 @ 7:10 with (8) 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: COMMENT: Growth US q 4 weeks at 28 weeks. NSTs-2x weekly starting at 32 weeks. Continue Labetalol. home BPs 2 x daily per MFM. weekly labs (9) Gestational thrombocytopenia: COMMENT: discussed with MFM on 05/05. no need to deliver prior to 37 weeks unless plts less than 100k and other signs leading to diagnosis of hellp. rpt labs week of 05/08
== END 2023-04-19 16:50 | disposition home or self-care (01) ==
LOC: WPOUT 16:01 → WP 16:01
PROVIDERS: Referring Provider Obstetrics & Gynecology; Visit Provider Obstetrics & Gynecology
DX: O47.03 False labor before 37 completed weeks of gestation, third trimester (principal); D69.6 Thrombocytopenia, unspecified; O99.343 Other mental disorders complicating pregnancy, third trimester; O26.893 Other specified pregnancy related conditions, third trimester; F41.9 Anxiety disorder, unspecified; O34.219 Maternal care for unspecified type scar from previous cesarean delivery; O12.13 Gestational proteinuria, third trimester; Z3A.35 35 weeks gestation of pregnancy; O99.113 Other diseases of the blood and blood-forming organs and certain disorders involving the immune mechanism complicating pregnancy, third trimester
CPT/HCPCS: 96372; 99221; G0378; J0702

== ENCOUNTER → 2023-04-21 | Outpatient (CLI) | payer OTHER, SELFPAY ==
--- NOTE | 2023-04-21 12:08 | US_ITS ---
STUDY: OBSTETRICAL ULTRASOUND - BIOPHYSICAL PROFILE REASON FOR EXAM: Female, 27 years old Elevated BP -- PRE E LMP: September 01, 2022. PRIOR ULTRASOUND: Comparison is made with prior study dated April 11, 2023. TECHNIQUE: Transabdominal TECHNICAL QUALITY: Adequate. FINDINGS: There is a single intrauterine fetus. The fetus is in a cephalic presentation. There is demonstrated cardiac activity with a heart rate of 162 bpm. There is a normal amniotic fluid volume. The largest amniotic fluid pocket measures 5.8 cm x 3.5 cm. The amniotic fluid index (DONAL) is 17.2 cm. The placenta is anterior in location and is not low lying. There are Grade 1 placental changes. Age by LMP: 33 weeks, 1 days. OTF by LMP: June 08, 2023. age by prior US: 34 weeks, 5 days. OTF by prior US: May 28, 2023. BIOPHYSICAL PROFILE: Breathing Movements (FBM): 2 Gross Body Movements (GBM): 2 Tone (FT): 2 Amniotic Fluid Volume (AFV): 2 TOTAL SCORE: 8 / 8 US/Biophysical Prof W/O Non Stres IMPRESSION: Normal biophysical profile of 8/8. Electronically Signed: Adrian Bliss MD at 14:03 EDT ,
== END | disposition home or self-care (01) ==
LOC: US 12:02
PROVIDERS: Referring Provider Nurse Practitioner Women's Health; Visit Provider Nurse Practitioner Women's Health
DX: O16.9 Unspecified maternal hypertension, unspecified trimester (principal); Z3A.00 Weeks of gestation of pregnancy not specified
CPT/HCPCS: 76819

== ENCOUNTER → 2023-04-24 | Outpatient (CLI) | payer OTHER, SELFPAY ==
[2023-04-24 09:34] LABS: Absolute Neutrophil Count 15.1 X10^3/uL (2.0-7.7); Basophil# 0.03 X10^3/uL; Basophil% 0.2 % (0-1); Eosinophil# 0.17 X10^3/uL; Eosinophils% 0.9 % (0-5); Hematocrit 37.4 % (37-47); Hemoglobin 12.4 g/dL (12.0-15.0); Lymphocyte % 10.3 % (19-41); Mean Corp Hgb Conc 33.2 g/dL (32-36); Mean Corpuscular Hgb 29.6 pg (27.0-32.0); Mean Corpuscular Volume 89.3 fL (81-99); Mean Platelet Vol. 10.3 fl (6.2-12.0); Monocyte# 1.14 X10^3/uL; Monocyte% 6.2 % (0-10); NRBC Flagged by Analyzer 0 % (0-5); Neutrophil # 15.11 X10^3/uL (2.7-7.7); Neutrophil % 81.6 % (47-70); Platelet Count 171 K/mm3 (150-450); RBC Distribution Width CV 14.1 % (11.6-14.6); RBC Distribution Width SD 45.8 fl (35.1-43.9); Red Blood Count 4.19 M/mm3 (4.2-5.4); White Blood Count 18.5 K/mm3 (4.4-11.0)
[2023-04-24 09:55] LABS: ALB/GLOB Ratio 0.7 RATIO (0.9-2.4); AST(SGOT) 14 U/L (15-37); Alanine Aminotransfer ALT/SGPT 21 U/L (13-56); Albumin, Serum 3.1 g/dL (3.2-5.0); Alkaline Phosphatase 130 U/L (45-117); Anion Gap 6 (5-15); BUN 8 mg/dL (7-18); BUN/Creat Ratio 14.5 RATIO (10-20); Calcium,Total 9.5 mg/dL (8.5-10.1); Chloride 105 mmol/L (98-107); Creatinine, Serum 0.55 mg/dL (0.55-1.02); EST Glomerular Filtration Rate 142 mL/min (>60); Est Glom Filt Rate - Afr Amer 171 mL/min (>60); Globulin 4.6 g/dL (2.2-4.2); Glucose 89 mg/dL (74-106); Potassium 3.9 mmol/L (3.5-5.1); Protein, Total 7.7 g/dL (6.4-8.2); Sodium Level 137 mmol/L (136-145)
== END | disposition home or self-care (01) ==
PROVIDERS: Referring Provider Obstetrics & Gynecology; Visit Provider Obstetrics & Gynecology
DX: O14.93 Unspecified pre-eclampsia, third trimester (principal); Z3A.00 Weeks of gestation of pregnancy not specified
CPT/HCPCS: 36415; 80053; 85025

== ENCOUNTER → 2023-04-26 | Outpatient (CLI) | payer OTHER, SELFPAY ==
--- NOTE | 2023-04-26 16:46 | US_ITS ---
STUDY: OBSTETRICAL ULTRASOUND - BIOPHYSICAL PROFILE REASON FOR EXAM: Female, 27 years old Elevated BP -- 34 Weeks LMP: September 01, 2022. PRIOR ULTRASOUND: Comparison is made with prior study dated April 21, 2023 TECHNIQUE: Transabdominal TECHNICAL QUALITY: Adequate. FINDINGS: There is a single intrauterine fetus. The fetus is in a cephalic presentation. There is demonstrated cardiac activity with a heart rate of 163 bpm. There is a normal amniotic fluid volume. The largest amniotic fluid pocket measures 3.3 cm x 3.5 cm. The amniotic fluid index (DONAL) is 10.9 cm. The placenta is anterior in location and is not low lying. There are Grade 1 placental changes. Age by LMP: 33 weeks, 6 days. OTF by LMP: June 08, 2023. age by prior US: 35 weeks, 3 days. OTF by prior US: May 28, 2023. BIOPHYSICAL PROFILE: Breathing Movements (FBM): 2 Gross Body Movements (GBM): 2 Tone (FT): 2 Amniotic Fluid Volume (AFV): 2 TOTAL SCORE: 8 / 8 US/Biophysical Prof W/O Non Stres IMPRESSION: Normal biophysical profile of 8/8. Electronically Signed: Adrian Bliss MD at 15:08 EDT ,
== END | disposition home or self-care (01) ==
PROVIDERS: Referring Provider Obstetrics & Gynecology; Visit Provider Obstetrics & Gynecology
DX: O16.9 Unspecified maternal hypertension, unspecified trimester (principal); Z3A.00 Weeks of gestation of pregnancy not specified
CPT/HCPCS: 76819

== ENCOUNTER 2023-04-30 16:30 | Outpatient (CLI) | payer OTHER, SELFPAY ==
[2023-04-19 16:09] VITALS: TEMP 37.4
[2023-04-30] VITALS (7 sets, daily range): BP systolic 129–145; BP diastolic 75–89; PULSE 103–122; TEMP 36.5; BMI 37.1
[2023-04-30 17:11] LABS: Hematocrit 36.2 % (37-47); Hemoglobin 12.3 g/dL (12.0-15.0); Mean Corpuscular Volume 88.3 fL (81-99); Mean Platelet Vol. 10.6 fl (6.2-12.0); Platelet Count 165 K/mm3 (150-450); RBC Distribution Width CV 13.9 % (11.6-14.6); RBC Distribution Width SD 44.8 fl (35.1-43.9); White Blood Count 16.4 K/mm3 (4.4-11.0)
[2023-04-30 17:22] LABS: AST(SGOT) 19 U/L (15-37); Alanine Aminotransfer ALT/SGPT 23 U/L (13-56); Creatinine, Serum 0.51 mg/dL (0.55-1.02); Creatinine, Urine (random) < 13.00 mg/dL (NO RANGE EST.); EST Glomerular Filtration Rate 156 mL/min (>60); Est Glom Filt Rate - Afr Amer 189 mL/min (>60); Estimated Creatinine Clearance 139.49 ml/min; Protein, Urine (Random) < 6.0 mg/dL (<11.9); Uric Acid 3.6 mg/dL (2.6-6.0)
[2023-04-30 17:31] LABS: Bacteria 0 SEEN /hpf (None Seen); Mucous, Urine 0 SEEN /hpf (<or=2+); Red Blood Cells-Urine 0 SEEN /hpf (0-5); White Blood Cells 0 SEEN /hpf (0-5)
[2023-04-30 17:41] LABS: Color, Urine Straw (Yellow); Glucose, Dipstick Normal (Normal); Ketone-Dipstick Negative (Negative); Leukocyte Esterase-Dipstick Negative /ul (Negative); Nitrite-Dipstick Negative (Negative); Occult Blood-Urine Negative /ul (Negative); Protein-Dipstick Negative (Negative); Urine Bilirubin Dipstick Negative (Negative); Urine Clarity Sl. Cloudy (Clear); Urine Urobilinogen Normal (Normal)
[2023-04-30 17:47] LABS: Amorphous Sediment 1+ PHOS; Squamous Epithelial Cells - UA 0-5 SEEN /hpf (5-10)
--- NOTE | 2023-04-30 18:15 | OB.TRI.HP_ITS ---
HPI - General HPI Narrative CELIA MILLER, is a 27 F who presents at 34+3 with headache, fuzzy vision where she was not able to see the clock on the oven well and cramping. +fm, denies lof/vb/consistent ctx.+sick contacts at home with both children with colds. on flonase for year round allegies. pt with know PIH followed in the office with BPPs/NST on labetolol 50mg BID. hx significant for c/s Maternal Data Information OTF Calculator Estimated Delivery Date Method Current WG Current Estimate 06/08/23 Ultrasound #2 34w 3d Other Estimates 06/19/23 LMP (Uncertain) 32w 6d PFSH PFSH Medical History Anxiety History of miscarriage Home Medications vitamin#30 30 mg iron-10 mg iron-folic acid 1 mg-omg3 capsule 1 cap PO DAILY 12/24/20 [History Last Taken 12/24/20] labetalol 200 mg tablet 50 mg PO BID bp 03/15/23 [History Last Taken 04/04/23 07:00] progesterone micronized 200 mg capsule (Prometrium) 200 mg vaginal ONCE 04/04/23 [History Last Taken 04/03/23 21:00] aspirin 81 mg 04/30/23 [History Last Taken Unknown] Allergy/AdvReac Type Severity Reaction Status Date / Time No Known Allergies Allergy Verified 04/30/23 17:15 Surgical History H/O dilation and curettage Hx of wisdom tooth extraction S/P Social History adopted: No household members: spouse and children housing: house number of children: 2 current occupational status: employed 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 current occupational exposures/hazards: No pets and animals: Yes (not managing litterbox) pets and animals: cat(s) and dog(s) history of recent travel: No sexually active: Yes Smoking Status: Never smoker alcohol intake: never substance use type: does not use well-balanced diet: daily or most days caffeine: Yes Type: carbonated beverages Number of servings: 1 eating out: 1-3 times/week during the past year weight has: remained stable what type of physical activity do you participate in: none khai/shinto: Anabaptism seatbelt use: always do you feel safe at home: Yes 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 Date Name GA/Weeks Outcome Route Bth Weight Infant Gen Labor Lgth Anesthesia Del Locatn Provider FOB 11/23/18 [place] 38 live - full term 7lbs 4oz Male Juan F TJ 12/24/20 Rojas 35 live - 6lbs 4oz Male s manuel [facility] Dr. Dailey Delivery Date: 11/23/18 Last Updated by: Andie Breaux CAT II FHT Delivery Date: 12/24/20 Last Updated by: Delmy Welsh PPROM Visit Details Expected Delivery Route/Plan patient counseled regarding risks/benefits of trial of labor versus repeat . ACOG/uptodate education given to patient. She wishes to be educated more and think about a after 2 sections. 50/7% % likelihood of success per calculator TOLAC consent form signed: []1 Plans Covid status: discussed Flu vaccine: discussed Tdap vaccine: given Rhogam:na LARC form signed: yes movement and labor precautions reviewed. Problem list reviewed and updated with the most current plan of care details and appropriate orders placed. Relevant counseling for the gestational age provided. Continue routine care and follow up unless otherwise noted in visit notes/problem list details OB Flowsheet Initial Weight: Not Recorded Date -?-?-?-?-?-?-?-?-?-?-?-?- EGA Weight BP Urine Prot -?-?-?-?-?-?-?-?-?-?-?-?- Glucose FHR FuHt Pres Dilation -?-?-?-?-?-?-?-?-?-?-?-?- Effaced St Visit Note 11/08/22 -?-?-?-?-?-?-?-?-?-?-?-?- 9w 5d 166 lb 8 oz 147/88 -?-?-?-?-?-?-?-?-?-?-?-?- 189 -?-?-?-?-?-?-?-?-?-?-?-?- JV- 2.5 cm subch orionic hem present near the cervix. Single live IUP measuring 9weeks 5 days. New otf 06/08/22 11/24/22 -?-?-?-?-?-?-?-?-?-?-?-?- 12w 0d 171 lb 6 oz 138/81 Nega tive -?-?-?-?-?-?-?-?-?-?-?-?- Negative 155 -?-?-?-?-?-?-?-?-?-?-?-?- JV- no bleeding, patient has decided to do genetic testing. repeat ultrasound performed today. 12/23/22 -?-?-?-?-?-?-?-?-?-?-?-?- 16w 1d 172 lb 8 oz 150/88 Nega tive -?-?-?-?-?-?-?-?-?-?-?-?- Negative 156 -?-?-?-?-?-?-?-?-?-?-?-?- JV- no further b leeding. NOEMY resolved on today's ultrasound. anatomy scan scheduled. pt still has intermittent high blood pressure and c/o intermittent chest pressure. consulting cardiology and she is informed to go to ER next time has the pain. 01/25/23 -?-?-?-?-?-?-?-?-?-?-?-?- 20w 6d 182 lb 2 oz 128/80 Nega tive -?-?-?-?-?-?-?-?-?-?-?-?- Negative 149 -?-?-?-?-?-?-?-?-?-?-?-?- MH-No VB, LOF. A nterior placenta so just light kicks. No concerns 02/17/23 -?-?-?-?-?-?-?-?-?-?-?-?- 24w 1d 188 lb 8 oz 136/85 Nega tive -?-?-?-?-?-?-?-?-?-?-?-?- Negative 155 -?-?-?-?-?-?-?-?-?-?-?-?- KW-no lof/vb/ctx . +fm Planning Tdap, and 28 week labs. to track BPs at home and start vaginal progesterone. SHe would like to try a with this . Sign TOLAC form next visit. 03/15/23 -?-?-?-?-?-?-?-?-?-?-?-?- 27w 6d 195 lb 8 oz 134/80 Nega tive -?-?-?-?-?-?-?-?-?-?-?-?- Negative 150 28 -?-?-?-?-?-?-?-?-?-?-?-?- MH-No VB, lof. G ood FM. 28 wk labs, larc. 03/31/23 -?-?-?-?-?-?-?-?-?-?-?-?- 30w 1d 202 lb 147/73 135/81 Negative -?-?-?-?-?-?-?-?-?-?-?-?- Negative 140 30 -?-?-?-?-?-?-?-?-?-?-?-?- SM- no vb lof go od fm nor egualr ctx. discussed plan of delivery by 37 recommend RLTCS unless very favorable for IOL. 04/11/23 -?-?-?-?-?-?-?-?-?-?-?-?- 31w 5d 201 lb 8 oz 137/81 Nega tive -?-?-?-?-?-?-?-?-?-?-?-?- Negative 140 -?-?-?-?-?-?-?-?-?-?-?-?- SM- no vb lof go o dfm no regular ctx labs ordered 04/14/23 -?-?-?-?-?-?-?-?-?-?-?-?- 32w 1d 206 lb 2 oz 133/76 Nega tive -?-?-?-?-?-?-?-?-?-?-?-?- Negative 140 -?-?-?-?-?-?-?-?-?-?-?-?- JV- reactive NST . growth 93rd %. needs pih labs weekly. bp stable today 04/18/23 -?-?-?-?-?-?-?-?-?-?-?-?- 32w 5d 206 lb 130/60 Negative -?-?-?-?-?-?-?-?-?-?-?-?- Negative 140 -?-?-?-?-?-?-?-?-?-?-?-?- KW-+FM, no lof/v b/ctx. PCR increased last visit. repeat labs and Celestone. reactive NST KW-+FM, no lof/vb/ctx. tdap today. PCR increased last visit. repeat labs and Celestone. reactive NST discusses POC with SM. 04/24/23 -?-?-?-?-?-?-?-?-?-?-?-?- 33w 4d 205 lb 130/89 Negative -?-?-?-?-?-?-?-?-?-?-?-?- Negative 150 -?-?-?-?-?-?-?-?-?-?-?-?- SM- no vb lof go od fm no reuglar ctx just cramping and loose stoole no PARRY BV pree labs today schedule US in 2 weeks 04/27/23 -?-?-?-?-?-?-?-?-?-?-?-?- 34w 0d 206 lb 4 oz 128/70 Nega tive -?-?-?-?-?-?-?-?-?-?-?-?- Negative 140 -?-?-?-?-?-?-?-?-?-?-?-?- SM- no PARRY BV vb lof good fm no regular ctx NST FHR Rate Baby A Baseline: 155 Variability:: Moderate Accelerations:: 15 x 15 Decelerations:: None NST Reactive:: Yes FHR Category:: Category I Uterine Activity:: irregular Assessment & Plan (1) 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: COMMENT: Growth US q 4 weeks at 28 weeks. NSTs-2x weekly starting at 32 weeks. Continue Labetalol. home BPs 2 x daily per MFM. weekly labs (2) Desires (vaginal after ) trial: COMMENT: 15%- discussed with pt. plan RLTCS at 37 due to GHTN unless labor or very favorable cervix. RLTCS scheduled for 05/19 @ 7:10 with SM (3) Hx of delivery, currently : COMMENT: vaginal progesterone 200mg until 37 weeks (4) History of delivery: COMMENT: history of 2 sections. first was for unknown reason per patient and 2nd was repeat section for srom at 35 weeks. wants to discuss . chance of success 50% (5) Seasonal allergies: COMMENT: all year (6) Supervision of high risk , antepartum: COMMENT: [id number], OTF 06/19/23 Vahe Durbin! PC Rojas Nava TJ (7) : QUALIFIERS: Weeks of gestation: 33 weeks Qualified Code(s): Z3A.33 - 33 weeks gestation of COMMENT: NIPT low risk, discussed carrier testing. Anatomy US normal. (8) Anxiety: COMMENT: stable PLAN: Plan Patient presents for triage evaluation secondary to PEC work up. labs negative for PEC, does have elevated WBC, likely viral infection as symptoms started today. FHT: Moderate variability reactive no decelerations category I tracing [place]: Contractions Assessment and plan: Reactive NST, reassuring maternal and status patient discharged to home to follow-up in office this week. -all PEC labs normal, including P:C ratio. no proteinuria. -will take claritin or zyrtec for congestion, tylenol for comfort/headache. continue to monitor BP at home. keep scheduled appointments for nst/bpps -Dr. Vasquez updated on exam, poc and agrees with d/c home. See problem list details for additional plan information. Charges/Coding Visit Charges Office Visits / Consults: 79395 OV L3 Est
[2023-04-30] MEDS: Acetaminophen 500 MG Tablet 1000 MG PO (18:27)
== END 2023-04-30 18:30 | disposition home or self-care (01) ==
LOC: WPOUT 16:35 → WP 16:38
PROVIDERS: Referring Provider Registered Nurse; Visit Provider Registered Nurse
DX: O99.513 Diseases of the respiratory system complicating pregnancy, third trimester (principal); O14.93 Unspecified pre-eclampsia, third trimester; Z3A.33 33 weeks gestation of pregnancy; O09.213 Supervision of pregnancy with history of pre-term labor, third trimester; O34.219 Maternal care for unspecified type scar from previous cesarean delivery; J30.2 Other seasonal allergic rhinitis; O99.343 Other mental disorders complicating pregnancy, third trimester; F41.9 Anxiety disorder, unspecified
CPT/HCPCS: 36415; 59025; 59050; 81001; 82565; 82570; 84156; 84450; 84460; 84550; 85027; 99221; G0378

== ENCOUNTER 2023-05-02 18:05 | Outpatient (CLI) | payer OTHER, SELFPAY ==
[2023-05-02 18:13] VITALS: BMI 37.0
[2023-05-02 18:15] VITALS: TEMP 36
[2023-05-02 18:18] VITALS: BP 138/73; PULSE 111
[2023-05-02 18:19] VITALS: PULSE 123; O2SAT 98
[2023-05-02 18:56] LABS: ROM Internal Control Test YES-OK TO RESULT pt. (Internal QC); ROM Patient Test Negative (Negative); Record Kit Lot#, ROM+ K1374
--- NOTE | 2023-05-02 22:23 | OB.TRI.HP_ITS ---
HPI - General General Date of Admission: 05/02/23 HPI Narrative CELIA MILLER, is a 27 y/o @ 34 weeks 5 days who presents to L&D with possible rupture of membranes and occasional contractions. a rom + was ordered. [facility] Medical History Anxiety Anxiety delivery delivered Gestational HTN History of miscarriage History of pre-term labor History of premature rupture of membranes (PPROM) Home Medications vitamin#30 30 mg iron-10 mg iron-folic acid 1 mg-omg3 capsule 1 cap PO DAILY 12/24/20 [History Last Taken 05/18/23] Allergy/AdvReac Type Severity Reaction Status Date / Time No Known Allergies Allergy Verified 06/01/23 15:20 Surgical History H/O dilation and curettage Hx of wisdom tooth extraction Previous section S/P Social History (Updated 06/01/23 @ 15:20 by Delmy Welsh) adopted: No household members: spouse and children housing: house number of children: 3 current occupational status: employed 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 current occupational exposures/hazards: No pets and animals: Yes (not managing litterbox) pets and animals: cat(s) and dog(s) history of recent travel: No sexually active: Yes Smoking Status: Never smoker alcohol intake: never substance use type: does not use well-balanced diet: daily or most days caffeine: Yes Type: carbonated beverages Number of servings: 1 eating out: 1-3 times/week during the past year weight has: remained stable what type of physical activity do you participate in: none khai/yarsanism: Religious seatbelt use: always do you feel safe at home: Yes additional 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 Date Name GA/Weeks Outcome Route Bth Weight Infant Gen Labor Lgth Anesthesia Del Locatn Provider FOB 11/23/18 Elijah 38 live - full term 7lbs 4oz Male [place] TJ 12/24/20 Rojas 35 live - 6lbs 4oz Male trace [facility] Dr. Dailey 05/19/23 Ramakrishna 37 live - full term 7lbs [address]oz Male [facility] Katia TJ Delivery Date: 11/23/18 Last Updated by: Andie Breaux CAT II FHT Delivery Date: 12/24/20 Last Updated by: Delmy Welsh PPROM Delivery Date: 05/19/23 Last Updated by: Alicia Renee RLTCS 37 wks preeclampsia ROS Constitutional Constitutional: Reports systems reviewed and no addt'l complaints, except as documented Gastrointestinal Gastrointestinal: Denies bloating, constipation, cramping, diarrhea, nausea or vomiting Genitourinary Genitourinary: Reports other Details: Denies vaginal odor, vaginal bleeding, or vaginal discharge ; Denies difficulty urinating or flank pain NST FHR Rate Baby A Baseline: 160 Variability:: Moderate Accelerations:: 10 x 10 Decelerations:: None NST Reactive:: Yes FHR Category:: Category I Uterine Activity:: occasional contractions Assessment & Plan (1) False labor before 37 completed weeks of gestation: PLAN: rom + was negative. no significant contractions on monitor and patient is overall comfortable. ok to dc to home. Charges/Coding Multi Select Codes Urinary/Genital Urinary/Genital CPT Codes: 45168-09 non-stress test Interp
== END 2023-05-02 19:33 | disposition home or self-care (01) ==
LOC: WPOUT 18:11 → WP 18:12
PROVIDERS: Visit Provider Obstetrics & Gynecology
DX: O16.3 Unspecified maternal hypertension, third trimester (principal); Z3A.33 33 weeks gestation of pregnancy
CPT/HCPCS: 59025; 59050; 84112; 99221; G0378

== ENCOUNTER 2023-05-05 10:43 | Outpatient (CLI) | payer OTHER, SELFPAY ==
[2023-05-05] VITALS (13 sets, daily range): BP systolic 133–158; BP diastolic 72–88; PULSE 96–118; TEMP 36.1; O2SAT 97; BMI 37.0
[2023-05-05] MEDS: LACTATED RINGERS 500 ML 999 ML IV (11:20)
[2023-05-05 11:35] LABS: Absolute Lymphocyte Count 1.63 X10^3/uL (0.83-4.51); Absolute Neutrophil Count 12.4 X10^3/uL (2.0-7.7); Basophil# 0.03 X10^3/uL; Basophil% 0.2 % (0-1); Eosinophil# 0.08 X10^3/uL; Eosinophils% 0.5 % (0-5); Hematocrit 38.1 % (37-47); Hemoglobin 12.4 g/dL (12.0-15.0); Lymphocyte # 1.63 X10^3/ul (0.83-4.51); Lymphocyte % 10.6 % (19-41); Mean Corp Hgb Conc 32.5 g/dL (32-36); Mean Corpuscular Hgb 29.1 pg (27.0-32.0); Mean Corpuscular Volume 89.4 fL (81-99); Mean Platelet Vol. 11.3 fl (6.2-12.0); Monocyte# 1.17 X10^3/uL; Monocyte% 7.6 % (0-10); NRBC Flagged by Analyzer 0 % (0-5); Neutrophil # 12.41 X10^3/uL (2.7-7.7); Neutrophil % 80.5 % (47-70); POSITIVE COUNT YES; Platelet Count 139 K/mm3 (150-450); RBC Distribution Width CV 14.1 % (11.6-14.6); RBC Distribution Width SD 45.7 fl (35.1-43.9); Red Blood Count 4.26 M/mm3 (4.2-5.4); White Blood Count 15.4 K/mm3 (4.4-11.0)
[2023-05-05] MEDS: Lactated Ringers 1,000 ML 200 ML IV (11:36)
[2023-05-05 12:23] LABS: Syphilis Antibodies Non-reactive
[2023-05-05 14:22] LABS: Prothrombin Time (Protime)PT. 12.9 SECONDS (11.7-14.9)
[2023-05-05 14:23] LABS: Partial Thromboplast Time 27.1 Seconds (24.1-36.2)
[2023-05-05 14:34] LABS: Hematocrit 36.8 % (37-47); Hemoglobin 12.4 g/dL (12.0-15.0); Mean Corp Hgb Conc 33.7 g/dL (32-36); Mean Corpuscular Hgb 29.6 pg (27.0-32.0); Mean Corpuscular Volume 87.8 fL (81-99); Mean Platelet Vol. 10.4 fl (6.2-12.0); Platelet Count 143 K/mm3 (150-450); RBC Distribution Width CV 14.1 % (11.6-14.6); RBC Distribution Width SD 44.5 fl (35.1-43.9); Red Blood Count 4.19 M/mm3 (4.2-5.4); White Blood Count 15.8 K/mm3 (4.4-11.0)
[2023-05-05 17:04] LABS: Protein, Urine (Random) 9.1 mg/dL (<11.9); Protein:Creat Ratio 262 mg/g CRE (0-200)
--- NOTE | 2023-05-05 17:25 | OB.TRI.HP_ITS ---
HPI - General HPI Narrative CELIA MILLER, is a 27 y/o who presents to L&D after was discharged earlier today for a non-reactive nst in office and mild elevations in bp (140's/80's) while here her plts returned at 139 and was noted to be 165 on prior lab work back in late March. She was called back for further evaluation. Maternal Data Information OTF Calculator Estimated Delivery Date Method Current WG Current Estimate 06/08/23 Ultrasound #2 35w 1d Other Estimates 06/19/23 LMP (Uncertain) 33w 4d PFSH PFSH Medical History Anxiety History of miscarriage Home Medications vitamin#30 30 mg iron-10 mg iron-folic acid 1 mg-omg3 capsule 1 cap PO DAILY 12/24/20 [History Last Taken 05/02/23 07:00] labetalol 200 mg tablet 50 mg PO BID bp 03/15/23 [History Last Taken 05/02/23 07:00] progesterone micronized 200 mg capsule (Prometrium) 200 mg vaginal ONCE 04/04/23 [History Last Taken 04/29/23 08:00] aspirin 81 mg PO/SL DAILY 04/30/23 [History Last Taken 05/01/23 19:00] Allergy/AdvReac Type Severity Reaction Status Date / Time No Known Allergies Allergy Verified 05/05/23 11:30 Surgical History H/O dilation and curettage Hx of wisdom tooth extraction S/P Social History adopted: No household members: spouse and children housing: house number of children: 2 current occupational status: employed 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 current occupational exposures/hazards: No pets and animals: Yes (not managing litterbox) pets and animals: cat(s) and dog(s) history of recent travel: No sexually active: Yes Smoking Status: Never smoker alcohol intake: never substance use type: does not use well-balanced diet: daily or most days caffeine: Yes Type: carbonated beverages Number of servings: 1 eating out: 1-3 times/week during the past year weight has: remained stable what type of physical activity do you participate in: none khai/judaism: Confucianism seatbelt use: always do you feel safe at home: Yes 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 Date Name GA/Weeks Outcome Route Bth Weight Infant Gen Labor Lgth Anesthesia Del Locatn Provider FOB 11/23/18 Elijah 38 live - full term 7lbs 4oz Male [place] TJ 12/24/20 Rojas 35 live - 6lbs 4oz Male s manuel [facility] Dr. Dailey Delivery Date: 11/23/18 Last Updated by: Andie Breaux CAT II FHT Delivery Date: 12/24/20 Last Updated by: Delmy Welsh PPROM Visit Details Expected Delivery Route/Plan patient counseled regarding risks/benefits of trial of labor versus repeat . ACOG/uptodate education given to patient. She wishes to be educated more and think about a after 2 sections. 50/7% % likelihood of success per calculator TOLAC consent form signed: []1 Plans Covid status: discussed Flu vaccine: discussed Tdap vaccine: given Rhogam:na LARC form signed: yes movement and labor precautions reviewed. Problem list reviewed and updated with the most current plan of care details and appropriate orders placed. Relevant counseling for the gestational age provided. Continue routine care and follow up unless otherwise noted in visit notes/problem list details OB Flowsheet Initial Weight: Not Recorded Date -?-?-?-?-?-?-?-?-?-?-?-?- EGA Weight BP Urine Prot -?-?-?-?-?-?-?-?-?-?-?-?- Glucose FHR FuHt Pres Dilation -?-?-?-?-?-?-?-?-?-?-?-?- Effaced St Visit Note 11/08/22 -?-?-?-?-?-?-?-?-?-?-?-?- 9w 5d 166 lb 8 oz 147/88 -?-?-?-?-?-?-?-?-?-?-?-?- 189 -?-?-?-?-?-?-?-?-?-?-?-?- JV- 2.5 cm subch orionic hem present near the cervix. Single live IUP measuring 9weeks 5 days. New otf 06/08/22 11/24/22 -?-?-?-?-?-?-?-?-?-?-?-?- 12w 0d 171 lb 6 oz 138/81 Nega tive -?-?-?-?-?-?-?-?-?-?-?-?- Negative 155 -?-?-?-?-?-?-?-?-?-?-?-?- JV- no bleeding, patient has decided to do genetic testing. repeat ultrasound performed today. 12/23/22 -?-?-?-?-?-?-?-?-?-?-?-?- 16w 1d 172 lb 8 oz 150/88 Nega tive -?-?-?-?-?-?-?-?-?-?-?-?- Negative 156 -?-?-?-?-?-?-?-?-?-?-?-?- JV- no further b haylee. NOEMY resolved on today's ultrasound. anatomy scan scheduled. pt still has intermittent high blood pressure and c/o intermittent chest pressure. consulting cardiology and she is informed to go to ER next time has the pain. 01/25/23 -?-?-?-?-?-?-?-?-?-?-?-?- 20w 6d 182 lb 2 oz 128/80 Nega tive -?-?-?-?-?-?-?-?-?-?-?-?- Negative 149 -?-?-?-?-?-?-?-?-?-?-?-?- MH-No VB, LOF. A nterior placenta so just light kicks. No concerns 02/17/23 -?-?-?-?-?-?-?-?-?-?-?-?- 24w 1d 188 lb 8 oz 136/85 Nega tive -?-?-?-?-?-?-?-?-?-?-?-?- Negative 155 -?-?-?-?-?-?-?-?-?-?-?-?- KW-no lof/vb/ctx . +fm Planning Tdap, and 28 week labs. to track BPs at home and start vaginal progesterone. SHe would like to try a with this . Sign TOLAC form next visit. 03/15/23 -?-?-?-?-?-?-?-?-?-?-?-?- 27w 6d 195 lb 8 oz 134/80 Nega tive -?-?-?-?-?-?-?-?-?-?-?-?- Negative 150 28 -?-?-?-?-?-?-?-?-?-?-?-?- MH-No VB, lof. G ood FM. 28 wk labs, larc. 03/31/23 -?-?-?-?-?-?-?-?-?-?-?-?- 30w 1d 202 lb 147/73 135/81 Negative -?-?-?-?-?-?-?-?-?-?-?-?- Negative 140 30 -?-?-?-?-?-?-?-?-?-?-?-?- SM- no vb lof go od fm nor egualr ctx. discussed plan of delivery by 37 recommend RLTCS unless very favorable for IOL. 04/11/23 -?-?-?-?-?-?-?-?-?-?-?-?- 31w 5d 201 lb 8 oz 137/81 Nega tive -?-?-?-?-?-?-?-?-?-?-?-?- Negative 140 -?-?-?-?-?-?-?-?-?-?-?-?- SM- no vb lof go o dfm no regular ctx labs ordered 04/14/23 -?-?-?-?-?-?-?-?-?-?-?-?- 32w 1d 206 lb 2 oz 133/76 Nega tive -?-?-?-?-?-?-?-?-?-?-?-?- Negative 140 -?-?-?-?-?-?-?-?-?-?-?-?- JV- reactive NST . growth 93rd %. needs pih labs weekly. bp stable today 04/18/23 -?-?-?-?-?-?-?-?-?-?-?-?- 32w 5d 206 lb 130/60 Negative -?-?-?-?-?-?-?-?-?-?-?-?- Negative 140 -?-?-?-?-?-?-?-?-?-?-?-?- KW-+FM, no lof/v b/ctx. PCR increased last visit. repeat labs and Celestone. reactive NST KW-+FM, no lof/vb/ctx. tdap today. PCR increased last visit. repeat labs and Celestone. reactive NST discusses POC with SM. 04/24/23 -?-?-?-?-?-?-?-?-?-?-?-?- 33w 4d 205 lb 130/89 Negative -?--?-?-?-?-?-?-?-?-?-?-?- Negative 150 -?-?-?-?-?-?-?-?-?-?-?-?- SM- no vb lof go od fm no reuglar ctx just cramping and loose stoole no PARRY BV pree labs today schedule US in 2 weeks 04/27/23 -?-?-?-?-?-?-?-?-?-?-?-?- 34w 0d 206 lb 4 oz 128/70 Nega tive -?-?-?-?-?-?-?-?-?-?-?-?- Negative 140 -?-?-?-?-?-?-?-?-?--?-?-?- SM- no PARRY BV vb lof good fm no regular ctx 05/02/23 -?-?-?-?-?-?-?-?-?-?-?-?- 34w 5d 210 lb 4 oz 137/84 Nega tive -?-?-?-?-?-?-?-?-?-?-?-?- Negative 160 -?-?-?-?-?-?-?-?-?-?-?-?- MH-NST only reac tive 05/05/23 -?-?-?-?-?-?-?-?-?-?-?-?- 35w 1d 210 lb 137/78 137/78 Negative -?-?-?-?-?-?-?-?-?-?-?-?- Negative 175 -?-?-?-?-?-?-?-?-?-?-?-?- KW-+FM and cramp ing, no vb/lof. nonreactive NST-to WP-JV aware ROS Constitutional Constitutional: Reports systems reviewed and no addt'l complaints, except as documented Gastrointestinal Gastrointestinal: Denies bloating, constipation, cramping, diarrhea, nausea or vomiting Genitourinary Genitourinary: Reports other Details: Denies vaginal odor, vaginal bleeding, or vaginal discharge ; Denies difficulty urinating or flank pain Physical Exam HEENT normocephalic Resp normal respiratory effort and normal air movement no CVA tenderness Extremity normal to inspection General Extremity: edema bilateral (trace ) NST FHR Rate Baby A Baseline: 140 Variability:: Moderate Accelerations:: 15 x 15 Decelerations:: None NST Reactive:: Yes FHR Category:: Category I Assessment & Plan (1) Gestational thrombocytopenia: COMMENT: discussed with MFM on 05/05. no need to deliver prior to 37 weeks unless plts less than 100k and other signs leading to diagnosis of hellp. rpt labs week of 05/08 PLAN: proteinuria resolved and bp's are stable in the 130's/80's-80's. reactive nst no symptoms of pre-e or hellp plan to dc to home and repeat labs next week. (2) 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: COMMENT: Growth US q 4 weeks at 28 weeks. NSTs-2x weekly starting at 32 weeks. Continue Labetalol. home BPs 2 x daily per MFM. weekly labs (3) Desires (vaginal after ) trial: COMMENT: 15%- discussed with pt. plan RLTCS at 37 due to GHTN unless labor or very favorable cervix. RLTCS scheduled for 05/19 @ 7:10 with SM (4) Hx of delivery, currently : COMMENT: vaginal progesterone 200mg until 37 weeks (5) History of delivery: COMMENT: history of 2 sections. first was for unknown reason per patient and 2nd was repeat section for srom at 35 weeks. wants to discuss . chance of success 50% (6) Seasonal allergies: COMMENT: all year (7) Supervision of high risk , antepartum: COMMENT: [id number], OTF 06/19/23 Vahe Durbin! PC [place] Nava TJ (8) : QUALIFIERS: Weeks of gestation: 35 weeks Qualified Code(s): Z3A.35 - 35 weeks gestation of COMMENT: NIPT low risk, discussed carrier testing. Anatomy US normal. (9) Anxiety: COMMENT: stable Charges/Coding Multi Select Codes Visit Charges Office Visit/Consults: 16270 OV L3 Est Urinary/Genital Urinary/Genital CPT Codes: 03097-09 non-stress test Interp
== END 2023-05-05 17:27 | disposition home or self-care (01) ==
LOC: WPOUT 10:55 → WP 10:56
PROVIDERS: Referring Provider Obstetrics & Gynecology; Visit Provider Obstetrics & Gynecology
DX: O99.113 Other diseases of the blood and blood-forming organs and certain disorders involving the immune mechanism complicating pregnancy, third trimester (principal); D69.6 Thrombocytopenia, unspecified; Z3A.35 35 weeks gestation of pregnancy; O14.93 Unspecified pre-eclampsia, third trimester; O09.213 Supervision of pregnancy with history of pre-term labor, third trimester; O99.513 Diseases of the respiratory system complicating pregnancy, third trimester; J30.2 Other seasonal allergic rhinitis; O99.343 Other mental disorders complicating pregnancy, third trimester; F41.9 Anxiety disorder, unspecified
CPT/HCPCS: 59025; 59050; 82570; 84156; 85025; 85027; 85610; 85730; 86780; 86850; 86900; 86901; J7120

== ENCOUNTER → 2023-05-08 | Outpatient (CLI) | payer OTHER, SELFPAY ==
[2023-05-08 10:20] LABS: Protein, Urine (Random) 7.3 mg/dL (<11.9); Protein:Creat Ratio 235 mg/g CRE (0-200)
== END | disposition home or self-care (01) ==
LOC: LABSPEC 09:57
PROVIDERS: Referring Provider Advanced Practice Midwife; Visit Provider Advanced Practice Midwife
DX: O99.119 Other diseases of the blood and blood-forming organs and certain disorders involving the immune mechanism complicating pregnancy, unspecified trimester (principal); D69.6 Thrombocytopenia, unspecified; O14.93 Unspecified pre-eclampsia, third trimester; Z3A.00 Weeks of gestation of pregnancy not specified
CPT/HCPCS: 82570; 84156

== ENCOUNTER → 2023-05-08 | Outpatient (CLI) | payer OTHER, SELFPAY ==
[2023-05-08 10:27] LABS: Absolute Lymphocyte Count 1.44 X10^3/uL (0.83-4.51); Absolute Neutrophil Count 12.2 X10^3/uL (2.0-7.7); Basophil# 0.03 X10^3/uL; Basophil% 0.2 % (0-1); Eosinophil# 0.12 X10^3/uL; Eosinophils% 0.8 % (0-5); Hematocrit 35.6 % (37-47); Hemoglobin 11.8 g/dL (12.0-15.0); Lymphocyte # 1.44 X10^3/ul (0.83-4.51); Lymphocyte % 9.7 % (19-41); Mean Corp Hgb Conc 33.1 g/dL (32-36); Mean Corpuscular Hgb 29.6 pg (27.0-32.0); Mean Corpuscular Volume 89.4 fL (81-99); Mean Platelet Vol. 10.6 fl (6.2-12.0); Monocyte# 0.99 X10^3/uL; Monocyte% 6.7 % (0-10); NRBC Flagged by Analyzer 0 % (0-5); Neutrophil # 12.15 X10^3/uL (2.7-7.7); Neutrophil % 81.8 % (47-70); Platelet Count 145 K/mm3 (150-450); RBC Distribution Width SD 45.8 fl (35.1-43.9); Red Blood Count 3.98 M/mm3 (4.2-5.4); White Blood Count 14.9 K/mm3 (4.4-11.0)
[2023-05-08 10:59] LABS: ALB/GLOB Ratio 0.6 RATIO (0.9-2.4); AST(SGOT) 19 U/L (15-37); Alanine Aminotransfer ALT/SGPT 21 U/L (13-56); Albumin, Serum 2.9 g/dL (3.2-5.0); Alkaline Phosphatase 146 U/L (45-117); Anion Gap 7 (5-15); BUN 6 mg/dL (7-18); BUN/Creat Ratio 11.5 RATIO (10-20); Calcium,Total 9.5 mg/dL (8.5-10.1); Chloride 108 mmol/L (98-107); Creatinine, Serum 0.52 mg/dL (0.55-1.02); EST Glomerular Filtration Rate 152 mL/min (>60); Est Glom Filt Rate - Afr Amer 184 mL/min (>60); Globulin 4.5 g/dL (2.2-4.2); Glucose 98 mg/dL (74-106); Potassium 3.9 mmol/L (3.5-5.1); Protein, Total 7.4 g/dL (6.4-8.2); Sodium Level 138 mmol/L (136-145)
== END | disposition home or self-care (01) ==
LOC: PAVLAB 09:59
PROVIDERS: Referring Provider Advanced Practice Midwife; Visit Provider Advanced Practice Midwife
DX: O99.119 Other diseases of the blood and blood-forming organs and certain disorders involving the immune mechanism complicating pregnancy, unspecified trimester (principal); D69.6 Thrombocytopenia, unspecified; O14.93 Unspecified pre-eclampsia, third trimester; Z3A.00 Weeks of gestation of pregnancy not specified
CPT/HCPCS: 36415; 80053; 85025

== ENCOUNTER → 2023-05-11 | Outpatient (CLI) | payer OTHER, SELFPAY ==
--- NOTE | 2023-05-11 15:13 | US_ITS ---
STUDY: SECOND AND THIRD TRIMESTER OBSTETRICAL ULTRASOUND - LIMITED REASON FOR EXAM: Female, 27 years old growth LMP: 09/01/2022. Established due date: 06/08/2023. PRIOR ULTRASOUND: Prior study dated: 04/26/2023. TECHNIQUE: Transabdominal scanning. TECHNICAL QUALITY: Adequate. FINDINGS: There is a single intrauterine fetus. The fetus is in a cephalic presentation. There is demonstrated cardiac activity with a heart rate of 148 bpm. There is a normal amniotic fluid volume. The largest amniotic fluid pocket measures 6.2 x 5.5 cm. The amniotic fluid index (DONAL) is 12.34 cm. The placenta is anterior. No placenta previa or abruption. The cervix was obscured. BIOMETRY: BPD: 9.1 cm : 37 weeks, 0 days HC: 32.7 cm: 37 weeks, 1 days AC: 33.9 cm: 37 weeks, 6 days FL: 7.1 cm: 36 weeks, 3 days FL/AC: 21% FL/BPD 78.1% FL/AC 21.75% CI: 81.3% HC/AC: 0.96 Age by LMP: 36 weeks, 0 days. OTF by LMP: 06/08/2023. age by prior US: 37 weeks, 3 days. OTF by prior US: 05/28/2023. age by current US: 37 weeks, 0 days. OTF by current US: 06/01/2023. Estimated weight: 3216 grams, +/- 482 grams, 86 percentile. US/OB Limited With Biometrics IMPRESSION: Single live intrauterine gestation in cephalic presentation. Estimated weight of 3216 g. Interval growth is appropriate. Electronically Signed: Bora Guan MD at 17:37 EDT ,
== END | disposition home or self-care (01) ==
PROVIDERS: Referring Provider Nurse Practitioner Women's Health; Visit Provider Nurse Practitioner Women's Health
DX: O16.9 Unspecified maternal hypertension, unspecified trimester (principal); Z3A.00 Weeks of gestation of pregnancy not specified
CPT/HCPCS: 76816; 87081

== ENCOUNTER 2023-05-19 04:55 | Inpatient (IN) | payer OTHER, SELFPAY ==
[2023-05-19] VITALS (25 sets, daily range): BP systolic 106–137; BP diastolic 56–88; PULSE 76–103; RESP 16; TEMP 36.1–36.7; O2SAT 97–100; BMI 38.2
[2023-05-19] MEDS: Lactated Ringers 1,000 ML 999 ML IV (05:30)
[2023-05-19 05:48] LABS: Absolute Lymphocyte Count 1.73 X10^3/uL (0.83-4.51); Absolute Neutrophil Count 11.1 X10^3/uL (2.0-7.7); Basophil# 0.03 X10^3/uL; Basophil% 0.2 % (0-1); Eosinophil# 0.16 X10^3/uL; Eosinophils% 1.1 % (0-5); Hematocrit 36.3 % (37-47); Hemoglobin 12.2 g/dL (12.0-15.0); Lymphocyte # 1.73 X10^3/ul (0.83-4.51); Lymphocyte % 12.2 % (19-41); Mean Corp Hgb Conc 33.6 g/dL (32-36); Mean Corpuscular Hgb 29.6 pg (27.0-32.0); Mean Corpuscular Volume 88.1 fL (81-99); Mean Platelet Vol. 11.1 fl (6.2-12.0); Monocyte# 0.94 X10^3/uL; Monocyte% 6.7 % (0-10); NRBC Flagged by Analyzer 0 % (0-5); Neutrophil # 11.14 X10^3/uL (2.7-7.7); Neutrophil % 78.9 % (47-70); Platelet Count 157 K/mm3 (150-450); RBC Distribution Width CV 14.4 % (11.6-14.6); RBC Distribution Width SD 45.1 fl (35.1-43.9); Red Blood Count 4.12 M/mm3 (4.2-5.4); White Blood Count 14.1 K/mm3 (4.4-11.0)
[2023-05-19] MEDS: Acetaminophen 500 MG Tablet 1000 MG PO ×3 (06:01→18:33)
[2023-05-19] MEDS: Lactated Ringers 1,000 ML 150 ML IV (06:29)
[2023-05-19] MEDS: Sodium Citrate/Citric Acid 30 ML UDC PO (06:52)
--- NOTE | 2023-05-19 07:12 | HP.PCM.OB_ITS ---
HPI - General General Date of Admission: 05/19/23 HPI Narrative CELIA MILLER, [facility] a 27 [facility] Maternal Data Information OTF Calculator Estimated Delivery Date Method Current WG Current Estimate 06/08/23 Ultrasound #2 37w 1d Other Estimates 06/19/23 LMP (Uncertain) 35w 4d PFSH PFSH Medical History (Updated 05/19/23 @ 05:58 by Hussain Portillo) Anxiety Anxiety Gestational HTN History of miscarriage History of pre-term labor History of premature rupture of membranes (PPROM) Home Medications vitamin#30 30 mg iron-10 mg iron-folic acid 1 mg-omg3 capsule 1 cap PO DAILY 12/24/20 [History Last Taken 05/18/23] labetalol 200 mg tablet 50 mg PO BID bp 03/15/23 [History Last Taken 05/18/23] progesterone micronized 200 mg capsule (Prometrium) 200 mg vaginal ONCE 04/04/23 [History Last Taken 04/29/23 08:00] aspirin 81 mg PO/SL DAILY 04/30/23 [History Last Taken 05/12/23] Allergy/AdvReac Type Severity Reaction Status Date / Time No Known Allergies Allergy Verified 05/19/23 05:10 Surgical History (Updated 05/19/23 @ 05:58 by Hussain Portillo) H/O dilation and curettage Hx of wisdom tooth extraction Previous section S/P Social History adopted: No household members: spouse and children housing: house number of children: 2 current occupational status: employed 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 current occupational exposures/hazards: No pets and animals: Yes (not managing litterbox) pets and animals: cat(s) and dog(s) history of recent travel: No sexually active: Yes Smoking Status: Never smoker alcohol intake: never substance use type: does not use well-balanced diet: daily or most days caffeine: Yes Type: carbonated beverages Number of servings: 1 eating out: 1-3 times/week during the past year weight has: remained stable what type of physical activity do you participate in: none khai/pentecostalism: Religion seatbelt use: always do you feel safe at home: Yes additional social history: [employer] for [employer] History 5 Elective abortions Hx Para 2 Spontaneous abortions 2 Hx # Term Pregnancies Ectopic pregnancies Hx # Pregnancies 1 Multiple births # of living children 2 Past Pregnancies Del. Date Name GA/Weeks Outcome Route Bth Weight Gen Labor Lgth Anesthesia Del Locatn Provider FOB 11/23/18 Elijah 38 live - full term 7lbs 4oz Male Juan F TJ 12/24/20 Rojas 35 live - 6lbs 4oz Male s manuel [facility] Dr. Dailey Delivery Date: 11/23/18 Last Updated by: Andie Breaux CAT II FHT Delivery Date: 12/24/20 Last Updated by: Delmy Welsh PPROM Visit Details Expected Delivery Route/Plan patient counseled regarding risks/benefits of trial of labor versus repeat . ACOG/uptodate education given to patient. She wishes to be educated more and think about a after 2 sections. 50/7% % likelihood of success per calculator TOLAC consent form signed: []1 Plans Covid status: discussed Flu vaccine: discussed Tdap vaccine: given Rhogam:na LARC form signed: yes movement and labor precautions reviewed. Problem list reviewed and updated with the most current plan of care details and appropriate orders placed. Relevant counseling for the gestational age provided. Continue routine care and follow up unless otherwise noted in visit notes/problem list details OB Flowsheet Initial Weight: Not Recorded Date -?-?-?-?-?-?-?-?-?-?-?-?- EGA Weight BP Urine Prot -?-?-?-?-?-?-?-?-?-?-?-?- Glucose FHR FuHt Pres Dilation -?-?-?-?-?-?-?-?-?-?-?-?- Effaced St Visit Note 11/08/22 -?-?-?-?-?-?-?-?-?-?-?-?- 9w 5d 166 lb 8 oz 147/88 -?-?-?-?-?-?-?-?-?-?-?-?- 189 -?-?-?-?-?-?-?-?-?-?-?-?- JV- 2.5 cm subch orionic hem present near the cervix. Single live IUP measuring 9weeks 5 days. New otf 06/08/22 11/24/22 -?-?-?-?-?-?-?-?-?-?-?-?- 12w 0d 171 lb 6 oz 138/81 Nega tive -?-?-?-?-?-?-?-?-?-?-?-?- Negative 155 -?-?-?-?-?-?-?-?-?-?-?-?- JV- no bleeding, patient has decided to do genetic testing. repeat ultrasound performed today. 12/23/22 -?-?-?-?-?-?-?-?-?-?-?-?- 16w 1d 172 lb 8 oz 150/88 Nega tive -?-?-?-?-?-?-?-?-?-?-?-?- Negative 156 -?-?-?-?-?-?-?-?-?-?-?-?- JV- no further b leeding. NOEMY resolved on today's ultrasound. anatomy scan scheduled. pt still has intermittent high blood pressure and c/o intermittent chest pressure. consulting cardiology and she is informed to go to ER next time has the pain. 01/25/23 -?-?-?-?-?-?-?-?-?-?-?-?- 20w 6d 182 lb 2 oz 128/80 Nega tive -?-?-?-?-?-?-?-?-?-?-?-?- Negative 149 -?-?-?-?-?-?-?-?-?-?-?-?- MH-No VB, LOF. A nterior placenta so just light kicks. No concerns 02/17/23 -?-?-?-?-?-?-?-?-?-?-?-?- 24w 1d 188 lb 8 oz 136/85 Nega tive -?-?-?-?-?-?-?-?-?-?-?-?- Negative 155 -?-?-?-?-?-?-?-?-?-?-?-?- KW-no lof/vb/ctx . +fm Planning Tdap, and 28 week labs. to track BPs at home and start vaginal progesterone. SHe would like to try a with this . Sign TOLAC form next visit. 03/15/23 -?-?-?-?-?-?-?-?-?-?-?-?- 27w 6d 195 lb 8 oz 134/80 Nega tive -?-?-?-?-?-?-?-?-?-?-?-?- Negative 150 28 -?-?-?-?-?-?-?-?-?-?-?-?- MH-No VB, lof. G ood FM. 28 wk labs, larc. 03/31/23 -?-?-?-?-?-?-?-?-?-?-?-?- 30w 1d 202 lb 147/73 135/81 Negative -?-?-?-?-?-?-?-?-?-?-?-?- Negative 140 30 -?-?-?-?-?-?-?-?-?-?-?-?- SM- no vb lof go od fm nor egualr ctx. discussed plan of delivery by 37 recommend RLTCS unless very favorable for IOL. 04/11/23 -?-?-?-?-?-?-?-?-?-?-?-?- 31w 5d 201 lb 8 oz 137/81 Nega tive -?-?-?-?-?-?-?-?-?-?-?-?- Negative 140 -?-?-?-?-?-?-?-?-?-?-?-?- SM- no vb lof go o dfm no regular ctx labs ordered 04/14/23 -?-?-?-?-?-?-?-?-?-?-?-?- 32w 1d 206 lb 2 oz 133/76 Nega tive -?-?-?-?-?-?-?-?-?-?-?-?- Negative 140 -?-?-?-?-?-?-?-?-?-?-?-?- JV- reactive NST . growth 93rd %. needs pih labs weekly. bp stable today 04/18/23 -?-?-?-?-?-?-?-?-?-?-?-?- 32w 5d 206 lb 130/60 Negative -?-?-?-?-?-?-?-?-?-?-?-?- Negative 140 -?-?-?-?-?-?-?-?-?-?-?-?- KW-+FM, no lof/v b/ctx. PCR increased last visit. repeat labs and Celestone. reactive NST KW-+FM, no lof/vb/ctx. tdap today. PCR increased last visit. repeat labs and Celestone. reactive NST discusses POC with SM. 04/24/23 -?-?-?-?-?-?-?-?-?-?-?-?- 33w 4d 205 lb 130/89 Negative -?-?-?-?-?-?-?-?-?-?-?-?- Negative 150 -?--?-?-?-?-?-?-?-?-?-?-?- SM- no vb lof go od fm no reuglar ctx just cramping and loose stoole no PARRY BV pree labs today schedule US in 2 weeks 04/27/23 -?-?-?-?-?-?-?-?-?-?-?-?- 34w 0d 206 lb 4 oz 128/70 Nega tive -?-?-?-?-?-?-?-?-?-?-?-?- Negative 140 -?-?-?-?-?-?-?-?-?-?-?-?- SM- no PARRY BV vb lof good fm no regular ctx 05/02/23 -?-?-?-?-?-?-?-?-?-?-?-?- 34w 5d 210 lb 4 oz 137/84 Nega tive -?-?-?-?-?-?-?-?-?-?-?-?- Negative 160 -?-?-?-?-?-?-?-?-?-?-?-?- MH-NST only reac tive 05/05/23 -?-?-?-?-?-?-?-?-?-?-?-?- 35w 1d 210 lb 137/78 137/78 Negative -?-?-?-?-?-?-?-?-?-?-?-?- Negative 175 -?-?-?-?-?-?-?-?-?-?-?-?- KW-+FM and cramp ing, no vb/lof. nonreactive NST-to WP-JV aware 05/08/23 -?-?-?-?-?-?-?-?-?-?-?-?- 35w 4d 213 lb 136/83 -?-?-?-?-?-?-?-?-?-?-?-?- 165 -?-?-?-?-?-?-?-?-?-?-?-?- KW-NST only. larisa ctive. labs repeated today 05/11/23 -?-?-?-?-?-?-?-?-?-?-?-?- 36w 0d 213 lb 2 oz 131/78 Nega tive -?-?-?-?-?-?-?-?-?-?-?-?- Negative 150 Cephalic 0 -?-?-?-?-?-?-?-?-?-?-?-?- JV- nst reactive and gbs collected. planning delivery next monday via rpt cs. 05/15/23 -?-?-?-?-?-?-?-?-?-?-?-?- 36w 4d 215 lb 4 oz 132/83 Nega tive -?-?-?-?-?-?-?-?-?-?-?-?- Negative 140 Cephalic -?-?-?-?-?-?-?-?-?-?-?-?- SM- no vb lof go od fm no regular ctx NST FHR Rate Baby A Baseline: 130 Variability:: Moderate Accelerations:: 15 x 15 Decelerations:: None NST Reactive:: Yes FHR Category:: Category I Uterine Activity:: irregular ROS Constitutional Constitutional: Reports systems reviewed and no addt'l complaints, except as documented Eyes Eyes: Denies change in vision ENT HEENT: Reports systems reviewed and no addt'l complaints, except as documented; Denies headache(s) Cardiovascular Cardiovascular: Reports systems reviewed and no addt'l complaints, except as documented; Denies chest pain or dyspnea Respiratory/Chest Respiratory/Chest: Reports systems reviewed and no addt'l complaints, except as documented Gastrointestinal Gastrointestinal: Reports systems reviewed and no addt'l complaints, except as documented; Denies abdominal pain Genitourinary Genitourinary: Reports systems reviewed and no addt'l complaints, except as documented, contractions Details: present (irregular) and movement Details: present; Denies dysuria or genital lesions Musculoskeletal Musculoskeletal: Reports systems reviewed and no addt'l complaints, except as documented Neurologic Neurologic: Reports systems reviewed and no addt'l complaints, except as documen jillian Endocrine Endocrinology: Reports systems reviewed and no addt'l complaints, except as documented Vital Signs Vital Signs Vital Signs: 05/19/23 06:04 Temperature 97.6 F L Temperature Source Temporal Pulse Rate 100 Respiratory Rate 16 Blood Pressure 137/88 H Blood Pressure Mean 104 Blood Pressure Source Monitor Blood Pressure Position Sitting Blood Pressure Location Left Arm Pulse Ox 97 Oxygen Delivery Method Room Air Weight Weight: 215 lb 9.793 oz Body Mass Index (BMI) 38.2 Physical Exam Const alert, oriented x3, no apparent distress and healthy appearing HEENT normocephalic and moist oral mucous membranes Head and Scalp: atraumatic Neck full ROM, no lymphadenopathy, supple and thyroid normal General: trachea midline Lymph Lymphatic: no lymphadenopathy noted Chest inspection of chest normal Resp normal respiratory effort Cardio regular rate GI normal to inspection, nondistended, normoactive bowel sounds, soft to palpation and non-tender Inspection: gravid external exam normal Manual OB Exam: estimated gestational size appropriate, presentation cephalic, dilated, effaced and station Extremity normal to inspection General Extremity: Negative for edema Skin no rashes or lesions noted Neuro no focal motor deficits and deep tendon reflexes 2+ bilaterally Motor Exam: strength 5/5 throughout and clonus absent Psych mental status grossly normal Labs Labs Labs: Blood Type O POSITIVE Antibody Screen NEGATIVE Hct 36.3 % (37-47) L Hgb 12.2 g/dL (12.0-15.0) Obstetrics US Syphilis Total Ab Non-reactive Rubella IgG Antibody Reactive (Nonreactive) Hep Bs Antigen Non-Reactive (Nonreactive) Chlamydia DNA (DAVID) Negative (Negative) Neisseria gonorrhoeae DNA (DAVID) Negative (Negative) HIV 1&2 Antibody Non-Reactive (Nonreactive) Glucose 1 Hr 50 gm 123 mg/dL (70-140) Rhogam given: No Assessment & Plan (1) Gestational thrombocytopenia: COMMENT: discussed with MFM on 05/05. no need to deliver prior to 37 weeks unless plts less than 100k and other signs leading to diagnosis of hellp. 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 NSTs-2x weekly starting at 32 weeks. Continue Labetalol. home BPs 2 x daily per MFM. weekly labs (3) Desires (vaginal after ) trial: COMMENT: 15%- discussed with pt. plan RLTCS at 37 due to GHTN unless labor or very favorable cervix. RLTCS scheduled for 05/19 @ 7:10 with SM (4) Hx of delivery, currently : COMMENT: vaginal progesterone 200mg until 37 weeks (5) History of delivery: COMMENT: history of 2 sections. first was for unknown reason per patient and 2nd was repeat section for srom at 35 weeks. wants to discuss . chance of success 50% (6) Seasonal allergies: COMMENT: all year (7) Supervision of high risk , antepartum: COMMENT: [id number], OTF 06/19/23 Vahe Durbin! PC Rojsa Nava TJ (8) : QUALIFIERS: Weeks of gestation: 36 weeks Qualified Code(s): Z3A.36 - 36 weeks gestation of COMMENT: GBS Negative, NIPT low risk, discussed carrier testing. Anatomy US normal. (9) Anxiety: COMMENT: stable PLAN: Plan plan RLTCS
--- NOTE | 2023-05-19 07:22 | EX.PCM.OBRPT ---
Assessment & Plan (1) Gestational thrombocytopenia: COMMENT: discussed with MFM on 05/05. no need to deliver prior to 37 weeks unless plts less than 100k and other signs leading to diagnosis of hellp. 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 NSTs-2x weekly starting at 32 weeks. Continue Labetalol. home BPs 2 x daily per MFM. weekly labs (3) Desires (vaginal after ) trial: COMMENT: 15%- discussed with pt. plan RLTCS at 37 due to GHTN unless labor or very favorable cervix. RLTCS scheduled for 05/19 @ 7:10 with (4) Hx of delivery, currently : COMMENT: vaginal progesterone 200mg until 37 weeks (5) History of delivery: COMMENT: history of 2 sections. first was for unknown reason per patient and 2nd was repeat section for srom at 35 weeks. wants to discuss . chance of success 50% (6) Seasonal allergies: COMMENT: all year (7) Supervision of high risk , antepartum: COMMENT: [id number], OTF 06/19/23 Vahe Durbin! PC Rojas Nava TJ (8) : QUALIFIERS: Weeks of gestation: 36 weeks Qualified Code(s): Z3A.36 - 36 weeks gestation of COMMENT: GBS Negative, NIPT low risk, discussed carrier testing. Anatomy US normal. (9) Anxiety: COMMENT: stable (10) delivery delivered: COMMENT: RLTCS 37 preeclampsia Maternal Data Information OTF Calculator Estimated Delivery Date Method Current WG Current Estimate 06/08/23 Ultrasound #2 37w 1d Other Estimates 06/19/23 LMP (Uncertain) 35w 4d Final OTF Source: LMP Details Operative Information Date of Procedure: 05/19/23 Pre-Operative Diagnosis: Previous Post-Operative Diagnosis: same Indications for : Repeat Elective Indications Narrative: Surgeon: Angelia Montalvo MD Classification: Scheduled Procedure Type: low transverse utility system repairer #1: Laurence Erazo utility system repairer #2: Kassidy Selby Type of Anesthesia: Spinal Special Medications: none Antibiotic Given: Ancef 2 grams IV x1 Drain: Moreno to straight drain Estimated Blood Loss: 600 Fluids Replaced: crystalloid Findings Description of Procedure: Spinal anesthesia was placed without difficulty. Moreno catheter was placed. The patient was placed in the dorsal supine position with leftward tilt. Patient was prepped and draped in the normal sterile fashion. Pfannenstiel skin incision was made with the scalpel and carried through to the underlying layer of fascia with the scalpel. Fascia was nicked in the midline and the incision extended laterally. The rectus bellies were dissected off superiorly and inferiorly with out complication both sharply and bluntly. The peritoneum was entered digitally. The incision was stretched and a low transverse uterine incision was made with the scalpel. The 's head was delivered atraumatically followed by the anterior and posterior shoulders without complication the rest of the delivered. The cord was clamped and cut and the infant was handed off to awaiting nurse. The placenta was delivered spontaneously immediately following and was noted to be intact and have a three-vessel cord. The uterus was exteriorized cleared of all clots and debris, and the incision was closed in a double layer closure using #1 Monocryl. several figure of eight sutures of 2-0 vicryl were used, floseal applied. excellent hemostasis noted. The ovaries and fallopian tubes were noted to be within normal limits. The uterus was returned to the maternal abdomen and gutters were cleared of all clots and debris. The peritoneum was closed with 3-0 Monocryl in a running fashion. Gloves were changed prior to fascial closure. Fascia was closed with 0 PDS in a running fashion. Subcutaneous tissue was copiously irrigated and the skin was closed with 3-0 Monocryl in a subcuticular fashion. Mepilex dressing was applied without complication. Patient was taken to recovery in stable condition. It was discussed with the patient that based on the clinical information obtained during this encounter, combined with her history, at this time I would recommend cesareans for future deliveries if further pregnancies are desired. Amniotic Membrane Rupture Type: Artificial Amniotic Fluid Description: Clear Placenta Disposition: [facility] Cord Vessel Description: 3 Vessels Delayed Cord Clamping: Yes Complications Risks of Surgery Discussed w/Patient: Bleeding, Infection, Need for Future C-Sections and Injury to surrounding structure(s) including bowel and bladder Vaginal Delivery Complication Complications: None Admit VTE Documentation VTE Present on Admission: No VTE Mechan Device Prophylaxis: SCD's Procedures Urinary/Genital 52xxx-59xxx: [id number] Delivery [facility] pkg
[2023-05-19] MEDS: Cefazolin 2 GM in 0.9% Normal Saline 100 ML IV (07:36)
[2023-05-19 08:10] LABS: Syphilis Antibodies Non-reactive
[2023-05-19] MEDS: Ketorolac 30 MG/ML Syringe IV ×3 (09:00→21:54)
--- NOTE | 2023-05-19 09:29 | DCINST_ITS ---
Discharge Instructions Diet Discharge Diet: No restrictions Activity Discharge Activity: Return to Normal Activity, May Drive (when pain free and off narcotic pain meds), May Shower and May Take a Tub Bath (in 4 weeks) May resume sexual activity in: 6 weeks Weight Bearing Status: Full weight bearing Lifting Restrictions: under 30 lbs for 6 weeks Dressing / Incision Call your doctor if your incision/area has: Continuous Slow Oozing, Sudden Increased Bleeding, Increased Pain/ Swelling, Increased Redness, Foul Smelling Discharge and - Call your doctor if you observe: Fever of 101 or Higher, Using more than 1 pad per hour, Shortness of breath, Chest pain and Uncontrolled pain Suture Line Care: Avoid Pulling/Pushing and Avoid Pinching/Bending Change Dressing in: 1 week (leave open to air after removed) Remove Dressing in: 1 week (if present) Cleanse incision/area with: Soap & Water and Keep Dressing Clean & Dry Follow Up Care Please Follow Up With: Angelia Montalvo MD When: Call to make an appointment with your doctor for a postop visit in 2 and 6 weeks. Test Results: Test results from this visit will be discussed in further detail at your follow- up appointment, if applicable. Discharge Plan Admission Admit Date/Time: 05/19/23 04:55 Attending Provider: Angelia Montalvo Primary Care Provider: Care PhysicianSarah Primary Discharge Orders/Prescriptions Prescriptions: New naproxen [naproxen] 500 mg tablet 500 mg PO BID PRN PRN (Reason: Pain) Qty: 30 1RF Discontinued labetalol 200 mg tablet 50 mg PO BID progesterone micronized [Prometrium] 200 mg capsule 200 mg vaginal ONCE Rx Instructions: Vaginal feozlrc-62-73 weeks aspirin 81 mg PO/SL DAILY No Action PNV #[id number] 30 mg iron-10 mg iron-1 mg capsule 1 cap PO DAILY Referrals / Follow Up: Care Physician,Sarah Primary [Primary Care Provider] -
[2023-05-19] MEDS: Oxytocin 15 Units/NS 250ml 15 UNITS/250 ML IV.SOLN 83 UNITS IV (09:44)
[2023-05-19] MEDS: Lactated Ringers 1,000 ML 100 ML IV (13:20)
[2023-05-19] MEDS: Ondansetron 4 MG/2 ML Vial IV (13:53)
[2023-05-19] MEDS: Enoxaparin 40 MG/0.4 ML Syringe SC (21:54)
[2023-05-19] MEDS: 0.9% Saline Lock 10 ML Syringe IV (21:56)
[2023-05-20] MEDS: Acetaminophen 500 MG Tablet 1000 MG PO ×3 (00:11→12:17)
[2023-05-20 00:13] VITALS: BP 123/65; PULSE 89; RESP 16; TEMP 35.9; O2SAT 100
[2023-05-20 01:55] VITALS: BP 106/46; PULSE 91; RESP 16; TEMP 36.3; O2SAT 99
[2023-05-20] MEDS: Ketorolac 30 MG/ML Syringe IV (03:53)
[2023-05-20 03:58] VITALS: BP 123/59; PULSE 81; RESP 16; TEMP 36.1; O2SAT 99
[2023-05-20 06:09] VITALS: BP 118/75; PULSE 81; RESP 16; TEMP 36.1; O2SAT 100
[2023-05-20 06:31] LABS: Hematocrit 33.3 % (37-47); Hemoglobin 10.5 g/dL (12.0-15.0); Mean Corp Hgb Conc 31.5 g/dL (32-36); Mean Corpuscular Hgb 29.2 pg (27.0-32.0); Mean Corpuscular Volume 92.8 fL (81-99); Mean Platelet Vol. 11.1 fl (6.2-12.0); Platelet Count 145 K/mm3 (150-450); RBC Distribution Width CV 14.4 % (11.6-14.6); RBC Distribution Width SD 48.2 fl (35.1-43.9); Red Blood Count 3.59 M/mm3 (4.2-5.4); White Blood Count 14.5 K/mm3 (4.4-11.0)
[2023-05-20 08:30] VITALS: BP 122/63; PULSE 79; RESP 16; TEMP 36; O2SAT 98
--- NOTE | 2023-05-20 10:33 | PCM.PN.OB ---
Subjective Subjective Patient is laying in bed comfortably without complaints. She states that she slept on an off during the night. Lochia is mild and pain is minimal. Objective Data Objective Data Vital Signs: Vital Signs Temp Pulse Resp BP Pulse Ox O2 Del Method 96.8 F L 79 16 122/63 H 98 Room Air 05/20/23 08:30 05/20/23 08:30 05/20/23 08:30 05/20/23 08:30 05/20/23 08:30 05/20/23 08:30 Oxygen Delivery Method Room Air Weight: 215 lb 9.793 oz Body Mass Index (BMI) 38.2 Intake & Output: Intake and Output for Last 24 Hours 05/18/23 05/19/23 05/20/23 23:59 23:59 23:59 Intake Total 2881.67 / 2881.67 Output Total 2425 / 2425 975 / 975 Balance 456.67 / 456.67 -975 / -975 Lab / Micro Data 05/20/23 06:20 Labs: Laboratory Results - last 24 hr 05/20/23 06:20: WBC 14.5 H, RBC 3.59 L, Hgb 10.5 L, Hct 33.3 L, MCV 92.8 D, MCH 29.2, MCHC 31.5 L D, RDW Std Deviation 48.2 H, RDW Coeff of Sherif 14.4, Plt Count 145 L, MPV 11.1 ROS Constitutional Constitutional: Reports systems reviewed and no addt'l complaints, except as documented Cardiovascular Cardiovascular: Denies chest pain, dizziness, dyspnea or irregular heart rhythm Respiratory/Chest Respiratory/Chest: Denies cough, pain on inspiration or shortness of breath at rest Gastrointestinal Gastrointestinal: Denies abdominal pain, nausea or vomiting Genitourinary Genitourinary: Denies burning urination Musculoskeletal Musculoskeletal: Denies muscle cramps, muscle spasms or muscle weakness Neurologic Neurologic: Denies confusion, dizziness, headache(s) or lack of coordination Psychiatric Psychiatric: Denies anxiety, behavioral changes or depression Physical Exam HEENT normocephalic Resp normal respiratory effort and normal air movement GI soft to palpation, non-tender and non-distended Rectal Exam: other Other Details: Incision is clean, dry, and intact no CVA tenderness Extremity normal to inspection General Extremity: edema bilateral (trace ) Assessment & Plan (1) Status post section routine follow-up: PLAN: s/p LTCS PPD #1 1. routine post care 2. breast feeding- support given 3. rh positive 4. rubella immune 5. plan for dc to home today
[2023-05-20] MEDS: Naproxen 500 MG Tablet PO (11:27)
[2023-05-20] MEDS: Senna/Docusate Sodium 1 Tablet PO (11:27)
[2023-05-20 14:10] VITALS: BP 121/79; PULSE 98; RESP 16; TEMP 36.2; O2SAT 98
== END 2023-05-20 14:45 | disposition home or self-care (01) | DRG 786 ==
PROVIDERS: Admitting Provider Obstetrics & Gynecology; Visit Provider Obstetrics & Gynecology
PROC: 10D00Z1 Extraction of Products of Conception, Low, Open Approach (ICD-10-PCS; CPT 59514; principal; 2023-05-19 06:55)
DX: O34.211 Maternal care for low transverse scar from previous cesarean delivery (principal); O60.14X0 Preterm labor third trimester with preterm delivery third trimester, not applicable or unspecified; O99.119 Other diseases of the blood and blood-forming organs and certain disorders involving the immune mechanism complicating pregnancy, unspecified trimester; D69.6 Thrombocytopenia, unspecified; F41.9 Anxiety disorder, unspecified; J30.2 Other seasonal allergic rhinitis; O99.52 Diseases of the respiratory system complicating childbirth; Z37.0 Single live birth; O99.344 Other mental disorders complicating childbirth; Z79.82 Long term (current) use of aspirin; Z3A.36 36 weeks gestation of pregnancy
CPT/HCPCS: 59050; 85025; 85027; 86780; 86850; 86900; 86901; 99221; 99252; J7120; A4216; G0378; G0463; J2405

== ENCOUNTER → 2024-08-16 | Outpatient (CLI) | payer OTHER, SELFPAY ==
[2024-08-21 14:26] LABS: HPV Reflexed? NOT INDICATED
== END | disposition home or self-care (01) ==
PROVIDERS: Referring Provider Advanced Practice Midwife; Visit Provider Advanced Practice Midwife
DX: Z12.4 Encounter for screening for malignant neoplasm of cervix (principal)
CPT/HCPCS: 88175; G0145

== ENCOUNTER → 2024-08-23 | Outpatient (CLI) | payer OTHER, SELFPAY ==
--- NOTE | 2024-08-23 14:21 | US_ITS ---
INDICATION: abnormal uterine bleeding EXAMINATION: Ultrasound US Pelvis Non OB Complete With Transvaginal Imaging TECHNIQUE: Transabdominal and transvaginal pelvic ultrasound was performed. Grayscale and color flow Doppler evaluation of the adnexa. COMPARISON: No relevant prior comparison study available FINDINGS: UTERUS: Anteverted. The uterus measures 10.1 x 4.9 x 4.4 cm. Uterine fibroids are noted. Lower uterine segment fibroid anteriorly measures 1.3 x 1.3 x 1.1 cm. Anterior uterine body myometrial fibroid measures 1.8 cm. The endometrial stripe measures 0.5 cm in AP diameter which is within normal limits. RIGHT OVARY: 3.1 x 2.5 x 2.6 cm. Non-enlarged, normal echogenicity. Small follicles noted. LEFT OVARY: 2.3 x 2 x 2 cm. Non-enlarged, normal echogenicity. Small follicles noted. FREE FLUID: None. US/Pelvic w/ Transvaginal IMPRESSION: No abnormal endometrial thickening. 2 uterine fibroids are seen in the myometrium. Electronically Signed: Geo Weiner MD at 1:03 EDT Reading Location ID and State: [address] [place] [address] Tel , Service support ,
== END | disposition home or self-care (01) ==
LOC: US 14:16
PROVIDERS: PCP Nurse Practitioner Family; Referring Provider Advanced Practice Midwife; Visit Provider Advanced Practice Midwife
DX: N93.9 Abnormal uterine and vaginal bleeding, unspecified (principal)
CPT/HCPCS: 76830; 76856

== ENCOUNTER → 2025-04-07 | Outpatient (CLI) | payer OTHER, SELFPAY ==
[2025-04-07 12:43] LABS: Absolute Lymphocyte Count 1.27 X10^3/uL (0.83-4.51); Absolute Neutrophil Count 8.1 X10^3/uL (2.0-7.7); Basophil# 0.02 X10^3/uL; Basophil% 0.2 % (0-1); Eosinophil# 0.03 X10^3/uL; Eosinophils% 0.3 % (0-5); Hematocrit 39.8 % (37-47); Hemoglobin 13.5 g/dL (12.0-15.0); Lymphocyte # 1.27 X10^3/ul (0.83-4.51); Lymphocyte % 12.7 % (19-41); Mean Corp Hgb Conc 33.9 g/dL (32-36); Mean Corpuscular Hgb 28.6 pg (27.0-32.0); Mean Corpuscular Volume 84.3 fL (81-99); Mean Platelet Vol. 11.1 fl (6.2-12.0); Monocyte# 0.58 X10^3/uL; Monocyte% 5.8 % (0-10); NRBC Flagged by Analyzer 0 % (0-5); Neutrophil # 8.05 X10^3/uL (2.7-7.7); Neutrophil % 80.5 % (47-70); Platelet Count 228 K/mm3 (150-450); RBC Distribution Width CV 13.2 % (11.6-14.6); RBC Distribution Width SD 41.2 fl (35.1-43.9); Red Blood Count 4.72 M/mm3 (4.2-5.4)
[2025-04-07 13:26] LABS: Hemoglobin A1c 5.1 % (<=5.6)
[2025-04-07 13:40] LABS: Protein, Urine (Random) 13.1 mg/dL (0.0-12.0); Protein:Creat Ratio 118 mg/g CRE (0-200)
[2025-04-07 14:05] LABS: ALB/GLOB Ratio 1.3 RATIO (0.9-2.4); AST(SGOT) 27 U/L (<=31); Alanine Aminotransfer ALT/SGPT 19 U/L (<=34); Albumin, Serum 4.7 g/dL (3.5-5.0); Alkaline Phosphatase 76 U/L (35-104); Anion Gap 14 (5-15); BUN 7 mg/dL (4-19); BUN/Creat Ratio 11.2 RATIO (10-20); Calcium,Total 9.6 mg/dL (7.6-11.0); Carbon Dioxide 19.9 mmol/L (21.0-32.0); Chloride 102 mmol/L (98-108); Creatinine, Serum 0.61 mg/dL (0.70-1.20); EST Glomerular Filtration Rate 126 (>60); Globulin 3.6 g/dL (2.2-4.2); Glucose 80 mg/dL (70-99); HIV Nonreactive (Nonreactive); Hepatitis B Surface Antigen Nonreactive (Nonreactive); Potassium 4.1 mmol/L (3.3-5.1); Protein, Total 8.2 g/dL (5.9-8.4); Sodium Level 136 mmol/L (133-145); Syphilis Antibodies Nonreactive (Nonreactive); Total Bilirubin 0.41 mg/dL (0.00-1.30)
[2025-04-07 14:06] LABS: Rubella IgG REAC (Nonreactive)
[2025-04-07 14:39] LABS: Hepatitis C Antibody Nonreactive (Nonreactive)
[2025-04-08 20:08] LABS: Chlamydia By Nucleic Acid AMP Negative (Negative); Gonococcus By Nucleic Acid AMP Negative (Negative)
== END | disposition home or self-care (01) ==
PROVIDERS: PCP Nurse Practitioner Family; Referring Provider Advanced Practice Midwife; Visit Provider Advanced Practice Midwife
DX: O99.210 Obesity complicating pregnancy, unspecified trimester (principal); O09.299 Supervision of pregnancy with other poor reproductive or obstetric history, unspecified trimester; Z3A.00 Weeks of gestation of pregnancy not specified
CPT/HCPCS: 36415; 80053; 82570; 83036; 84156; 85025; 86703; 86762; 86780; 86803; 86850; 86900; 86901; 87077; 87086; 87088; 87186; 87340; 87491; 87591

== ENCOUNTER → 2025-06-18 | Outpatient (CLI) | payer OTHER, SELFPAY ==
[2025-06-18 12:03] LABS: Protein, Urine (Random) < 6.0 mg/dL (0.0-12.0)
[2025-06-18 13:42] LABS: Creatinine, Urine (random) 39.00 mg/dL (28.00-217.00); Protein:Creat Ratio UNABLE TO CALCULATE mg/g CRE (0-200)
== END | disposition home or self-care (01) ==
LOC: LABSPEC 10:28
PROVIDERS: PCP Nurse Practitioner Family; Visit Provider Obstetrics & Gynecology
DX: O09.299 Supervision of pregnancy with other poor reproductive or obstetric history, unspecified trimester (principal); Z3A.00 Weeks of gestation of pregnancy not specified
CPT/HCPCS: 82570; 84156

== ENCOUNTER → 2025-08-21 | Outpatient (CLI) | payer OTHER, SELFPAY ==
[2025-08-21 16:46] LABS: Hematocrit 35.5 % (37-47); Hemoglobin 11.9 g/dL (12.0-15.0); Immature Granulocytes Count 0.070 X10^3/uL (0.0-0.0); Mean Corp Hgb Conc 33.5 g/dL (32-36); Mean Corpuscular Volume 86.8 fL (81-99); Mean Platelet Vol. 11.2 fl (6.2-12.0); NRBC Flagged by Analyzer 0 % (0-5); Platelet Count 174 K/mm3 (150-450); RBC Distribution Width CV 13.5 % (11.6-14.6); RBC Distribution Width SD 42.3 fl (35.1-43.9); Red Blood Count 4.09 M/mm3 (4.2-5.4); White Blood Count 12.7 K/mm3 (4.4-11.0)
[2025-08-21 17:32] LABS: Glucose Challenge Gest 1H 50g 101 mg/dL (70-140); HIV Nonreactive (Nonreactive); Syphilis Antibodies Nonreactive (Nonreactive)
== END | disposition home or self-care (01) ==
PROVIDERS: PCP Nurse Practitioner Family; Referring Provider Obstetrics & Gynecology; Visit Provider Obstetrics & Gynecology
DX: O09.90 Supervision of high risk pregnancy, unspecified, unspecified trimester (principal); Z13.1 Encounter for screening for diabetes mellitus; Z3A.00 Weeks of gestation of pregnancy not specified
CPT/HCPCS: 36415; 82950; 85025; 86703; 86780

== ENCOUNTER → 2025-09-05 | Outpatient (CLI) | payer OTHER, SELFPAY ==
[2025-09-05 11:33] LABS: Creatinine, Urine (random) 146.00 mg/dL (28.00-217.00); Protein, Urine (Random) 21.0 mg/dL (0.0-12.0); Protein:Creat Ratio 144 mg/g CRE (0-200)
== END | disposition home or self-care (01) ==
LOC: BWCLAB 10:56
PROVIDERS: PCP Nurse Practitioner Family; Referring Provider Obstetrics & Gynecology; Visit Provider Obstetrics & Gynecology
DX: R80.9 Proteinuria, unspecified (principal)
CPT/HCPCS: 82570; 84156

== ENCOUNTER 2025-09-18 09:20 | Outpatient (CLI) | payer OTHER, SELFPAY ==
[2025-09-18 09:36] VITALS: BMI 37.1
[2025-09-18 09:59] VITALS: PULSE 119; O2SAT 99
[2025-09-18 10:04] VITALS: PULSE 132; O2SAT 98
[2025-09-18] MEDS: Betamethasone/Betamethasone 30 MG/5 ML Vial 12 MG IM (10:06)
[2025-09-18 10:09] VITALS: PULSE 134; O2SAT 98
[2025-09-18 10:10] LABS: Hematocrit 34.3 % (37-47); Hemoglobin 11.9 g/dL (12.0-15.0); Mean Corp Hgb Conc 34.7 g/dL (32-36); Mean Corpuscular Volume 83.3 fL (81-99); Mean Platelet Vol. 10.7 fl (6.2-12.0); Platelet Count 154 K/mm3 (150-450); RBC Distribution Width CV 13.2 % (11.6-14.6); RBC Distribution Width SD 39.8 fl (35.1-43.9); Red Blood Count 4.12 M/mm3 (4.2-5.4); White Blood Count 12.3 K/mm3 (4.4-11.0)
[2025-09-18 10:12] VITALS: BP 136/71; PULSE 118; RESP 18; TEMP 36.4
[2025-09-18 10:27] VITALS: BP 125/69; PULSE 125
[2025-09-18 10:34] LABS: AST(SGOT) 21 U/L (<=31); Alanine Aminotransfer ALT/SGPT 14 U/L (<=34); Creatinine, Urine (random) 117.00 mg/dL (28.00-217.00); Estimated Creatinine Clearance 174.98 ml/min (50-250); Protein, Urine (Random) 21.1 mg/dL (0.0-12.0); Protein:Creat Ratio 180 mg/g CRE (0-200); Uric Acid 4.0 mg/dL (2.6-6.0)
[2025-09-18 10:42] VITALS: BP 119/69; PULSE 126
--- NOTE | 2025-09-18 10:44 | OB.TRI.PN ---
Progress Notes Date of Service: 09/18/25 Progress Note: Patient presents for triage evaluation secondary to elevated bps in office FHT: 150 Moderate variability reactive no decelerations category I tracing [place]: no regualr Contractions Assessment and plan: 32 weeks elevated blood pressures Reactive NST, labs WNL and all bps WNL here. celestone still given for history of pree with previous pregnancies. reassuring maternal and status patient discharged to home to follow-up as scheduled in office and tomorrow for repeat celestone. . See problem list details for additional plan information. Laboratory Studies: Laboratory Tests 09/18/25 Range/Units 09:50 WBC 12.3 H (4.4-11.0) K/mm3 RBC 4.12 L (4.2-5.4) M/mm3 Hgb 11.9 L (12.0-15.0) g/dL Hct 34.3 L (37-47) % MCV 83.3 (81-99) fL MCH 28.9 (27.0-32.0) pg MCHC 34.7 (32-36) g/dL RDW Std Deviation 39.8 (35.1-43.9) fl RDW Coeff of Sherif 13.2 (11.6-14.6) % Plt Count 154 (150-450) K/mm3 MPV 10.7 (6.2-12.0) fl Creatinine 0.53 L (0.70-1.20) mg/dL Estim Creat Clear Calc 174.98 (50-250) ml/min Est GFR (MDRD) Non-Af 130 (>60) Uric Acid 4.0 (2.6-6.0) mg/dL AST 21 (<=31) U/L ALT 14 (<=34) U/L U Random Total Protein 21.1 H (0.0-12.0) mg/dL Urine Creatinine 117.00 (28.00-217.00) mg/dL Protein/Creatinin Ratio 180 (0-200) mg/g CRE Charges/Coding Procedures Urinary/Genital 52xxx-59xxx: [id number] non-stress test Interp
== END 2025-09-18 11:00 | disposition home or self-care (01) ==
LOC: WPOUT 09:27 → WP 09:28
PROVIDERS: PCP Nurse Practitioner Family; Referring Provider Obstetrics & Gynecology; Visit Provider Obstetrics & Gynecology
DX: O99.891 Other specified diseases and conditions complicating pregnancy (principal); R03.0 Elevated blood-pressure reading, without diagnosis of hypertension; Z3A.32 32 weeks gestation of pregnancy
CPT/HCPCS: 36415; 59025; 59050; 82565; 82570; 84156; 84450; 84460; 84550; 85027; 96372; 99221; G0378; J0702

== ENCOUNTER 2025-09-19 09:45 | Outpatient (CLI) | payer OTHER, SELFPAY ==
[2025-09-19] MEDS: Betamethasone/Betamethasone 30 MG/5 ML Vial 12 MG IM (10:01)
--- NOTE | 2025-09-22 21:51 | OB.TRI.PN ---
Progress Notes Date of Service: 09/19/25 Progress Note: 32 weeks elevated bps- given celestone for prematurity dose 2
== END 2025-09-19 10:05 | disposition home or self-care (01) ==
LOC: WPOUT 09:48 → WP 09:48
PROVIDERS: PCP Nurse Practitioner Family; Referring Provider Obstetrics & Gynecology; Visit Provider Obstetrics & Gynecology
DX: O99.891 Other specified diseases and conditions complicating pregnancy (principal); R03.0 Elevated blood-pressure reading, without diagnosis of hypertension; Z3A.32 32 weeks gestation of pregnancy
CPT/HCPCS: 96372; 99221; G0378; J0702

== ENCOUNTER 2025-10-12 13:07 | Outpatient (CLI) | payer OTHER, SELFPAY ==
[2025-10-12] VITALS (16 sets, daily range): BP systolic 124–158; BP diastolic 74–93; PULSE 102–129; RESP 16; TEMP 36.9; O2SAT 97–99; BMI 38.1
--- OUTSIDE RECORDS SUMMARY | 2025-10-12 13:15 | XMS RPT_ITS | CCD ---
Author Organization [facility] Care Team Providers Care Police 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 Name Role Phone Young, Linnette S Unavailable Unavailable Young, Linnette S Unavailable Unavailable Elsi Jerome Unavailable Best Montoya Unavailable NO, PHYSICIAN Primary Care Unavailable Vel Mccurdy Unavailable Unavailable Care Physician, No Primary Primary Care Provider Unavailable Care Physician, No Primary Referring Provider Un available Dr. Flores Vasquez Attending Provider [phone] Ms. Vel Mccurdy Attending Dr. Elsi Mckoy Primary Care Unavailable Care Physician, No Primary Primary Care Provider Unavailable Care Physician, No Primary Referring Provider Un available Dr. Flores Vasquez Attending Provider 1([phone] [place] CONTOUR STITCHER, POLLO-C Anahi Attending Provider [phone] Dr. Angelia Colindres Other Provider [phone] FILI Reyez Attending Provider 1() Dr. Angelia Colindres Referring Provider 1( ) ANGELIA SAPP Attending Unavailable NO, PHYSICIAN Primary Care Unavailable Care Physician, No Primary Primary Care Provider Unavailable Care Physician, No Primary Referring Provider Un available Dr. Flores Vasquez Attending Provider 1([phone]) Care Physician, No Primary Primary Care Provider Unavailable Care Physician, No Primary Referring Provider Un available Dr. Flores Vasquez Attending Provider 1(02 16) Dr. Angelia Colindres Attending Provider [phone] FILI Reyez Referring Provider [phone] FILI Reyez Other Provider Care Physician, No Primary Primary Care Provider Unavailable Care Physician, No Primary Referring Provider Un available Dr. Flores Vasquez Attending Provider [phone] FILI Erazo Attending Provider Castro, FILI Dang Referring Provider Castro, FILI Dang Other Provider [phone] Dr. Flores Vasquez Referring Provider [phone] Dr. Flores Vasquez Other Provider Care Physician, No Primary Primary Care Provider Unavailable Care Physician, No Primary Referring Provider Un available [place] CONTOUR STITCHER, CONTOUR STITCHER-C Anahi Attending Provider [phone] Dr. Angelia Colindres Other Provider FILI Reyez Attending Provider [phone] Dr. Angelia Colindres Referring Provider [phone] Dr. Angelia Colindres Attending Provider [phone] FILI Reyez Referring Provider [phone] FILI Reyez Other Provider [phone] Flores Vasquez Attending Provider [phone] Dr. Flores Vasquez Referring Provider [phone] Dr. Flores Vasquez Other Provider FILI Erazo Attending Provider Castro, FILI Dang Referring Provider Castro, FILI Dang Other Provider Dr. Angelia Colindres Admit Provider Care Physician, No Primary Primary Care Provider Unavailable Care Physician, No Primary Referring Provider Un available [place] CONTOUR STITCHER, CONTOUR STITCHER-C Anahi Attending Provider [phone] August DUMONT-Griselda RAMSEY Primary Care Provider [phone] GRISELDA LINTON Attending Unavailable GRISELDA LINTON Primary Care Unavailable LINTON, GRISELDA D Attending Unavailable LINTON, GRISELDA D Primary Care Unavailable LINTON, GRISELDA D Attending Unavailable LINTON, GRISELDA D Primary Care Unavailable LINTON, GRISELDA D Primary Care Unavailable LINTON, GRISELDA D Primary Care Unavailable [place] 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, Griselda D Unavailable [place] 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, Griselda D Primary Care Provider [place] 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, Griselda D Unavailable [phone] NO, PHYSICIAN Primary Care Unavailable LEO SEYMOUR Attending Unavailable LINTON, GRISELDA D Primary Care Unavailable VEL MCCURDY Attending Unavailable [place] CONTOUR STITCHER-C, Griselda D Primary Care Provider Gina Staley RN Attending Provider Unavailabl e [place] CONTOUR STITCHER-C, Griselda D Referring Provider Enid Reyez CNM Attending Provider [phone] Enid Reyez CNM Referring Provider [phone] Dr. Angelia Colindres MD Attending Provider Dr. Flores Vasquez DO Attending Provider ANGELIA COLINDRES Referring Unavailabl e FLORES CABRAL Attending Unavailable [place] CONTOUR STITCHER-C, Griselda D Primary Care Provider [place] CONTOUR STITCHER-C, Griselda D Primary Care Physician [place] CONTOUR STITCHER-C, Griselda D Referring Provider Dr. Angelia Colindres MD Attending Physician Dr. Flores Vasquez DO Attending Physician Dr. Angelia Colindres MD Referring Provider [place] CONTOUR STITCHER-C, Griselda D Primary Care Physician [place] CONTOUR STITCHER-C, Griselda D Referring Provider Dr. Angelia Colindres MD Attending Physician Linton, Griselda D Primary Care Unavailable Linton, Griselda D Referring Unavailable Angelia Colindres Attending Unavailable Linton, Griselda D Primary Care Unavailable Linton, Griselda D Referring Unavailable Angelia Colindres Attending Unavailable Angelia Colindres Referring Unavailable Angelia Colindres Attending Unavailable Linton, Griselda D Primary Care Unavailable Marcanthony, Angelia Consulting Unavailable Marcanthony, Angelia Referring Unavailable Linton, Griselda D Primary Care Unavailable Marcanthony, Angelia Consulting Unavailable Marcanthony, Angelia Attending Unavailable Linton, Griselda D Primary Care Unavailable Linton, Griselda D Referring Unavailable Marcanthony, Angelia Attending Unavailable Linton, Griselda D Primary Care Unavailable Marcanthony, Angelia Attending Unavailable Linton, Griselda D Referring Unavailable Linton, Griselda D Referring Unavailable Linton, Griselda D Primary Care Unavailable Marcanthony, Angelia Attending Unavailable Linton, Griselda D Referring Unavailable Flores Vasquez Attending Unavailabl e Linton, Griselda D Primary Care Unavailable Linton, Griselda D Primary Care Unavailable Enid Reyez Referring Unavailable Enid Reyez Attending Unavailable Gina Staley Attending Unavailable Linton, Griselda D Primary Care Unavailable Linton, Griselda D Primary Care Unavailable Marcanthony, Angelia Attending Unavailable Linton, Griselda D Referring Unavailable Linton, Griselda D Primary Care Unavailable Marcanthony, Angelia Attending Unavailable Marcanthony, Angelia Referring Unavailable Linton, Griselda D Primary Care Unavailable Marcanthony, Angelia Attending Unavailable Leilanie Flores Lyons Attending Unavailabl e Linton, Griselda D Primary Care Unavailable Linton, Griselda D Primary Care Unavailable Marcanthony, Angelia Attending Unavailable Marcanthony, Angelia Referring Unavailable Marcanthony, Angelia Referring Unavailable Linton, Griselda D Primary Care Unavailable Marcanthony, Angelia Attending Unavailable Marcanthony, Angelia Referring Unavailable Linton, Griselda D Primary Care Unavailable Marcanthony, Angelia Attending Unavailable Linton, Griselda D Primary Care Unavailable Enid Reyez Attending Unavailable Linton, Griselda D Referring Unavailable Linton, Griselda D Referring Unavailable Linton, Griselda D Primary Care Unavailable Marcanthony, Angelia Attending Unavailable Linton, Griselda D Referring Unavailable Linton, Griselda D Primary Care Unavailable Marcanthony, Angelia Attending Unavailable Allergies Allergy Classification Reported Allergen(s) Allergy Type Date of Onset Reaction(s) Facility (9 sources) RAGWEED; Translations: [RAGWEED] Propensity to adverse reactions to drug (disorder) 5 Unknown [facility] (7 sources) Pollen; Translations: [POLLEN EXTRACTS] Propensity to adverse reactions 5 Other [facility] (1 source) Seasonal allergy; Translations: [SEASONAL ALLERGIES] Propensity to adverse reactions (disorder) 5 [facility] (1 source) MIXED RAGWEED; Translations: [MIXED RAGWEED] Propensity to adverse reactions to drug (disorder) 5 [facility] Medications Current Medications Medication Drug Class(es) Dates Sig (Normalized) Sig (Original) amoxicillin 875 mg oral tablet (2 sources) Penicillin-class Antibacterial Start: 01-25-2025 End: 02-04-2025 take 1 tablet by mouth twice daily amoxicillin (Amoxil) 875 mg tablet Indications: Non-recurrent acute serous otitis media of right ear Take 1 tablet (875 mg) by mouth 2 times a day for 10 days. 20 tablet 01/25/2025 02/04/2025 Active Start: 11-08-2023 End: 11-15-2023 take 1 capsule by mouth every twelve hours amoxicillin (Amoxil) 500 mg capsule Indications: Acute non-recurrent maxillary sinusitis Take 1 capsule (500 mg) by mouth every 12 hours for 7 days. 14 capsule 0 11/08/2023 11/15/2023 Active aspirin 81 mg oral tablet (19 sources) Platelet Aggregation Inhibitor, Nonsteroidal Anti-inflammatory Drug Start: 06-18-2025 take 1 tablet by mouth once daily Start: 04-30-2023 End: 05-19-2023 take 81 mg by mouth once daily aspirin Discontinued 81 mg SL/PO DAILY April 30, 2023 12:00am May 19, 2023 9:31am busPIRone hydrochloride 5 mg oral tablet (3 sources) Start: 09-14-2023 End: 05-16-2024 take 1 tablet by mouth three times daily as needed for anxiety busPIRone (Buspar) 5 mg tablet Indications: Generalized anxiety disorder with panic attacks Take 1 tablet (5 mg) by mouth 3 times a day as needed (ANXIETY). 90 tablet 1 09/14/2023 05/16/2024 Discontinued (Therapy completed) cephalexin 500 mg oral tablet (1 source) Cephalosporin Antibacterial Start: 11-01-2022 End: 11-07-2022 take 1 tablet by mouth twice daily cephalexin 500 mg oral tablet ; 1 tab(s) orally 2 times a day x 7 days Quantity: 14 Refills: 0 Ordered: 01-Nov-2022 Vel Mccurdy Start: 01-Nov-2022 End: 07-Nov-2022 Generic Substitution Allowed Comments: Finish all this medication unless otherwise directed by prescriber. Comment on above: Finish all this medi cation unless otherwise directed by prescriber. cholecalciferol 0.05 mg oral tablet (1 source) Vitamin D Start: 05-17-2024 End: 05-17-2025 take 1 tablet by mouth once daily cholecalciferol (Vitamin D3) 50 MCG (2000 UT) tablet Indications: Vitamin D deficiency Take 1 tablet (50 mcg) by mouth once daily. 90 tablet 3 05/17/2024 05/17/2025 Active COVID-19 antigen test (COVID-19 At-Home Test) kit (1 source) Start: 11-08-2023 End: 11-08-2023 COVID-19 antigen test (COVID-19 At-Home Test) kit Indications: Nasal congestion 1 each 1 time for 1 dose. 2 each 1 11/08/2023 11/08/2023 Active docosahexaenoic acid 200 mg oral capsule (10 sources) Start: 03-28-2025 Ethinyl Estradiol / Levonorgestrel (11 sources) Progestin, Estrogen, Progestin-containi ng Intrauterine Device Start: 03-06-2024 End: 05-16-2024 take 1 tablet by mouth in the morning levonorgestreL-ethin yl estrad (Aviane, Alesse, Lessina) 0.1-20 mg-mcg tablet Take 1 tablet by mouth early in the morning.. 03/06/2024 05/16/2024 Discontinued (Therapy completed) Start: 03-06-2024 End: 08-16-2024 take 1 tablet by mouth once daily Levonorgestrel-Ethinyl Estrad (Aviane) 0.1-20 mg-mcg tablet Discontinued 1 {tbl} PO daily 84 March 06, 2024 12:00am August 16, 2024 3:55pm Start: 03-06-2024 End: 08-16-2024 take 1 tablet by mouth once daily Levonorgestrel-Ethinyl Estrad (Aviane) 0.1-20 mg-mcg tablet Discontinued 1 {tbl} PO daily March 06, 2024 12:00am August 16, 2024 3:55pm Ethinyl Estradiol / Norethindrone (1 source) Estrogen KRYSTIAN FE 1.5-30 TABLET ; 1 tab(s) orally once a day Quantity: 0 Refills: 4 Ordered: 24-Jun-2021 Gayatri Real Generic Substitution Allowed Comments: Source=[facility], Medication=KRYSTIAN FE 1.5-30 TABLET, OriginatingSource=[facility], OriginatingProvider=CELY DAILEYRIELLE, Duration=84, Refills=4, Date Last Modified/Filled=29-Apr-2021 Comment on above: Source=[facility], Medication=KRYSTIAN FE 1.5-30 TABLET, OriginatingSource=[facility], OriginatingProvider=ASHLIE, MARGARITA, Duration=84, Refills=4, Date Last Modified/Filled=29-Apr-2021 ferrous sulfate 325 mg delayed release oral tablet (3 sources) Start: 2022 End: 2023 take 1 tablet by mouth once daily at mealtime ferrous sulfate 325 (65 Fe) MG EC tablet Indications: Iron deficiency anemia, unspecified iron deficiency anemia type Take 1 tablet (325 mg) by mouth once daily with a meal. Do not crush, chew, or split. 90 tablet 3 09/26/2023 09/25/2024 Active Start: 09-26-2023 End: 11-08-2023 take 1 tablet by mouth once daily at mealtime FeroSuL tablet Take 1 tablet by mouth once daily. WITH A MEAL 0 09/26/2023 11/08/2023 Discontinued (Duplicate order) fluticasone propionate 0.05 mg/actuat metered dose nasal spray (4 sources) Corticosteroid Start: 09-14-2023 End: 08-13-2025 take 1 spray(s) nasal route once daily fluticasone (Flonase) 50 mcg/actuation nasal spray Indications: Seasonal allergies Administer 1 spray into each nostril once daily. Shake gently. Before first use, prime pump. After use, clean tip and replace cap. 48 g 3 08/13/2024 08/13/2025 Active hydrocortisone 10 mg/ml / neomycin 3.5 mg/ml / polymyxin b 25274 unt/ml otic solution (1 source) Aminoglycoside Antibacterial, Polymyxin-class Antibacterial, Corticosteroid Start: 11-08-2023 End: 11-15-2023 neomycin-polymyxin -HC (Cortisporin) otic solution Indications: Otitis of right ear Administer 2 drops into the right ear 4 times a day for 7 days. 10 mL 0 11/08/2023 11/15/2023 Active loratadine 10 mg oral tablet (3 sources) Start: 09-14-2023 End: 05-16-2024 take 1 tablet by mouth once daily loratadine (Claritin) 10 mg tablet Indications: Seasonal allergies Take 1 tablet (10 mg) by mouth once daily. 90 tablet 3 09/14/2023 05/16/2024 Discontinued (Therapy completed) ondansetron 4 mg disintegrating oral tablet (10 sources) Serotonin-3 Receptor Antagonist Start: 04-08-2025 take 1 tablet by mouth every six hours as needed for nausea and vomiting Start: 11-08-2022 take 4 mg by mouth e very six hours Ondansetron Active 4 MG PO EVERY 6 HOURS 60 November 08, 2022 12:00am PARoxetine hydrochloride 10 mg oral tablet (3 sources) Serotonin Reuptake Inhibitor Start: 12-04-2023 End: 05-16-2024 take 1 tablet by mouth once daily in the morning PARoxetine (Paxil) 10 mg tablet Indications: Generalized anxiety disorder with panic attacks take 1 tablet by mouth once daily every morning 90 tablet 12/04/2023 05/16/2024 Discontinued (Therapy completed) Start: 09-14-2023 take 1 tablet by stephanie once daily in the morning PARoxetine (Paxil) 10 mg tablet Indications: Generalized anxiety disorder with panic attacks Take 1 tablet (10 mg) by mouth once daily in the morning. 90 tablet 0 09/14/2023 Active Pnv #92-Qnso-Pvjzo Acid-Omega3 (12 sources) Start: 12-24-2020 take 1 capsule by mouth once daily Pnv #39-Ezjn-Asqkg Acid-Omega3 Active 1 CAP PO DAILY December 24, 2020 6:46pm Start: 12-24-2020 take 1 capsule by mo [facility] once daily Pnv #67-Sajr-Psuob Acid-Omega3 Active 1 CAP PO DAILY December 24, 2020 5:46pm (1 source) Quantit y: 0 Refills: 0 Ordered: 13-Dec-202Negin Melendrez Generic Substitution Allowed Completed/Discontinued Medications Medication Drug Class(es) Dates Sig (Normalized) Sig (Original) acetaminophen 325 mg / oxyCODONE hydrochloride 5 mg oral tablet (13 sources) Opioid Agonist Start: 05-20-2023 End: 06-01-2023 take 1-2 tablets by mouth every four hours as needed for pain Oxycodone-Acetamino phen (Percocet) 5-325 mg tablet Discontinued 1 {tbl} PO Q4H as needed for pain 20 7 0 May 20, 2023 June 01, 2023 3:21pm Status post section routine follow-up Encounter for routine follow-up History of uterine scar from previous surgery 1-2 tabs q 4 hrs as needed for pain Start: 05-20-2023 End: 06-01-2023 betamethasone 1 mg/ml topical cream (1 source) Corticosteroid Start: 05-08-2020 End: 05-14-2020 betamethasone valerate 0.1% topical cream ; Apply topically to affected area once a day Quantity: 1 Refills: 0 Ordered: 08-May-2020 Toño Newberry Start: 08-May-2020 End: 14-May-2020 Status: Completed Generic Substitution Allowed Comments: For external use only. Comment on above: For external use onl y. Desogestrel-Ethinyl Estradiol (10 sources) Progestin, Estrogen Start: 08-28-2024 End: 03-28-2025 take 0.15 tablet by mouth once daily Desogestrel-Ethiny l Estradiol (Apri) 0.15-0.03 mg tablet Discontinued 1 {tbl} PO DAILY August 28, 2024 12:00am March 28, 2025 9:31am Irregular menstrual cycle Irregular menstruation, unspecified Start: 08-28-2024 End: 03-28-2025 take 0.15 tablet by mouth once daily Desogestrel-Ethinyl Estradiol (Apri) 0.15-0.03 mg tablet Discontinued 1 {tbl} PO DAILY August 28, 2024 12:00am March 28, 2025 9:31am Norethindrone-E.Estradiol-Ir on (20 sources) Estrogen Start: 04-29-2021 End: 06-09-2021 Norethindrone-E.Estradiol-Ir on (Loestrin Fe 1.5/30 (28-Day)) 1.5 mg-30 mcg (21)/75 mg (7) tablet Discontinued 1 {tbl} PO DAILY 84 4 April 29, 2021 12:00am June 09, 2021 1:57pm Start: 04-29-2021 End: 06-09-2021 Norethindrone-E.Estradiol-Ir on (Loestrin Fe 1.5/30 (28-Day)) 1.5 mg-30 mcg (21)/75 mg (7) tablet Discontinued 1 {tbl} PO DAILY 84 April 29, 2021 12:00am June 09, 2021 1:57pm Start: 04-29-2021 End: 06-09-2021 Start: 04-29-2021 End: 06-09-2021 take 1 tablet by mouth once daily Norethindrone-E.Estradiol-Iron (Loestrin Fe 1.5/30 (28-Day)) 1.5 mg-30 mcg (21)/75 mg (7) tablet Discontinued 1 TABLET PO DAILY 84 April 29, 2021 12:00am June 09, 2021 1:57pm Start: 04-29-2021 End: 06-09-2021 take 1 tablet by mouth once daily Norethindrone-E.Estradiol-Iron (Loestrin Fe 1.5/30 (28-Day)) 1.5 mg-30 mcg (21)/75 mg (7) tablet Discontinued 1 TABLET PO DAILY April 28, 2021 11:00pm June 09, 2021 12:57pm Norgestimate-Ethinyl Estradiol (20 sources) Progestin, Estrogen Start: 08-10-2022 End: 11-02-2022 Norgestimate-Ethinyl Estradiol (Ortho Tri-Cyclen (28)) 0.18/0.215/0.25 mg-35 mcg (28) tablet Discontinued 1 {tbl} PO DAILY 84 August 10, 2022 12:43pm November 02, 2022 5:06pm Start: 08-10-2022 End: 11-02-2022 Norgestimate-Ethinyl Estradi ol (Ortho Tri-Cyclen (28)) 0.18/0.215/0.25 mg-35 mcg (28) tablet Discontinued 1 {tbl} PO DAILY August 10, 2022 12:43pm November 02, 2022 5:06pm Start: 08-10-2022 End: 11-02-2022 Start: 08-10-2022 End: 11-02-2022 take 1 tablet by mouth once daily Norgestimate-Ethinyl Estradiol (Ortho Tri-Cyclen (28)) 0.18/0.215/0.25 mg-35 mcg (28) tablet Discontinued 1 TABLET PO DAILY August 10, 2022 12:43pm November 02, 2022 5:06pm Start: 08-10-2022 End: 11-02-2022 take 1 tablet by mouth once daily Norgestimate-Ethinyl Estradiol (Ortho Tri-Cyclen (28)) 0.18/0.215/0.25 mg-35 mcg (28) tablet Discontinued 1 TABLET PO DAILY August 10, 2022 11:43am November 02, 2022 4:06pm Start: 08-10-2022 take 1 tablet by stephanie th once daily Norgestimate-Ethinyl Estradiol (Ortho Tri-Cyclen (28)) 0.18/0.215/0.25 mg-35 mcg (28) tablet Active 1 TABLET PO DAILY August 10, 2022 11:43am Start: 07-15-2021 End: 08-10-2022 Norgestimate-Ethinyl Estradi ol (Ortho Tri-Cyclen (28)) 0.18/0.215/0.25 mg-35 mcg (28) tablet Discontinued 1 {tbl} PO DAILY 16 11July 15, 2021 3:55pm August 10, 2022 12:43pm Start: 07-15-2021 End: 08-10-2022 Norgestimate-Ethinyl Estradi ol (Ortho Tri-Cyclen (28)) 0.18/0.215/0.25 mg-35 mcg (28) tablet Discontinued 1 {tbl} PO DAILY July 15, 2021 3:55pm August 10, 2022 12:43pm Start: 07-15-2021 End: 08-10-2022 Start: 07-15-2021 End: 09-21-2022 take 1 tablet by mouth once daily Norgestimate-Ethinyl Estradiol (Ortho Tri-Cyclen (28)) 0.18/0.215/0.25 mg-35 mcg (28) tablet Discontinued 1 TABLET PO DAILY July 15, 2021 3:55pm August 10, 2022 12:43pm Start: 07-15-2021 End: 08-10-2022 take 1 tablet by mouth once daily Norgestimate-Ethinyl Estradiol (Ortho Tri-Cyclen (28)) 0.18/0.215/0.25 mg-35 mcg (28) tablet Discontinued 1 TABLET PO DAILY July 15, 2021 2:55pm August 10, 2022 11:43am Start: 06-25-2021 End: 07-15-2021 Norgestimate-Ethinyl Estradi ol (Ortho Tri-Cyclen (28)) 0.18/0.215/0.25 mg-35 mcg (28) tablet Discontinued 1 {tbl} PO DAILY 16 11June 25, 2021 12:00am July 15, 2021 3:55pm Start: 06-25-2021 End: 07-15-2021 Norgestimate-Ethinyl Estradi ol (Ortho Tri-Cyclen (28)) 0.18/0.215/0.25 mg-35 mcg (28) tablet Discontinued 1 {tbl} PO DAILY June 25, 2021 12:00am July 15, 2021 3:55pm Start: 06-25-2021 End: 07-15-2021 Start: 06-25-2021 End: 07-15-2021 take 1 tablet by mouth once daily Norgestimate-Ethinyl Estradiol (Ortho Tri-Cyclen (28)) 0.18/0.215/0.25 mg-35 mcg (28) tablet Discontinued 1 TABLET PO DAILY June 25, 2021 12:00am July 15, 2021 3:55pm Start: 06-25-2021 End: 07-15-2021 take 1 tablet by mouth once daily Norgestimate-Ethinyl Estradiol (Ortho Tri-Cyclen (28)) 0.18/0.215/0.25 mg-35 mcg (28) tablet Discontinued 1 TABLET PO DAILY June 24, 2021 11:00pm July 15, 2021 2:55pm ibuprofen 600 mg oral tablet (20 sources) Nonsteroidal Anti-inflammatory Drug Start: 12-24-2020 End: 02-04-2021 take 1 tablet by mouth every six hours as needed for pain Ibuprofen 600 MG tablet Discontinued 600 mg PO EVERY 6 HOURS NEEDED as needed for Pain 30 December 24, 2020 1:00am February 04, 2021 10:00am labetalol hydrochloride 200 mg oral tablet (20 sources) beta-Adrenergic [place] Start: 03-15-2023 End: 05-19-2023 Labetalol 200 mg tablet Discontinued 50 mg PO TWICE A DAY March 15, 2023 2:32pm May 19, 2023 9:31am High blood pressure affecting , antepartum Unspecified maternal hypertension, unspecified trimester bp Start: 03-07-2023 End: 11-08-2023 take 1 tablet by mouth twice daily labetalol (Normodyne) 100 mg tablet Take 1 tablet (100 mg) by mouth 2 times a day. 0 03/07/2023 11/08/2023 Discontinued (Therapy completed) Start: 02-17-2023 End: 03-15-2023 Labetalol 200 mg tablet Disc ontinued 100 mg PO TWICE A DAY February 17, 2023 3:26pm March 15, 2023 2:33pm High blood pressure affecting , antepartum Unspecified maternal hypertension, unspecified trimester Start: 02-10-2023 End: 02-17-2023 take 1 tablet by mouth twice daily Labetalol 200 mg tablet Discontinued 200 mg PO TWICE A DAY 120 4 February 10, 2023 12:00am February 17, 2023 3:26pm High blood pressure affecting , antepartum Unspecified maternal hypertension, unspecified trimester Start: 02-10-2023 End: 05-19-2023 take 100 mg by mouth twice daily Labetalol Discontinued 100 MG PO TWICE A DAY February 17, 2023 2:26pm March 15, 2023 1:33pm Start: 02-10-2023 End: 05-19-2023 take 50 mg by mouth twice daily Labetalol Discontinued 50 MG PO TWICE A DAY March 15, 2023 1:32pm May 19, 2023 8:31am levonorgestrel 0.440720 mg/hr intrauterine system (20 sources) Progestin, Progestin-containing Intrauterine Device Start: 06-09-2021 End: 08-10-2022 Levonorgestrel (Mirena) 20 mcg/24 hours (6 yrs) 52 mg intrauterine device Discontinued 1 NMA INTRA-UTER ONCE June 09, 2021 12:00am August 10, 2022 12:43pm as a single dose Start: 06-09-2021 End: 08-10-2022 Levonorgestrel (Mirena) 20 m cg/24 hours (6 yrs) 52 mg intrauterine device Discontinued 1 INSERT INTRA-UTER ONCE June 08, 2021 11:00pm August 10, 2022 11:43am as a single dose Start: 06-09-2021 End: 08-10-2022 Miscellaneous Medical Supply (Blood Pressure Cuff) misc (20 sources) Start: 12-11-2020 End: 02-04-2021 Miscellaneous Medical Supply (Blood Pressure Cuff) misc Discontinued 0 .ROUTE .MEDSUPPLY 1 0 December 11, 2020 1:00am February 04, 2021 10:00am As directed Start: 12-11-2020 End: 02-04-2021 Miscellaneous Medical Supply (Blood Pressure Cuff) misc Discontinued 0 .ROUTE .MEDSUPPLY December 11, 2020 1:00am February 04, 2021 10:00am As directed Start: 12-11-2020 End: 02-04-2021 Miscellaneous Medical Supply (Blood Pressure Cuff) misc Discontinued 0 .ROUTE .MEDSUPPLY December 11, 2020 12:00am February 04, 2021 9:00am As directed naproxen 500 mg oral tablet (13 sources) Nonsteroidal Anti-inflammatory Drug Start: 05-19-2023 End: 06-01-2023 take 1 tablet by mouth twice daily as needed for pain Naproxen 500 mg tablet Discontinued 500 mg PO TWICE DAILY NEEDED as needed for Pain 30 May 19, 2023 12:00am June 01, 2023 3:21pm nitrofurantoin, macrocrystals 25 mg / nitrofurantoin, monohydrate 75 mg oral capsule (20 sources) Nitrofuran Antibacterial Start: 07-20-2020 End: 07-25-2020 take 1 capsule by mouth every twelve hours at mealtime Nitrofurantoin Monohyd/M-Cryst (Macrobid) 100 mg capsule Discontinued 100 mg PO Q12H 10 5 0 July 20, 2020 12:00am July 24, 2020 12:00am July 25, 2020 12:02am must administer with a meal/food norethindrone 0.35 mg oral tablet (20 sources) Start: 05-29-2024 End: 08-28-2024 take 1 tablet by mouth once daily Norethindrone (Contraceptive) 0.35 mg tablet Discontinued 0.35 mg PO DAILY 16 11May 29, 2024 12:00am August 28, 2024 9:58am start day 1 of menstrual cycle Start: 06-29-2023 End: 05-16-2024 take 1 tablet by mouth once daily Norethindrone (Contraceptive) 0.35 mg tablet Discontinued 0.35 mg PO DAILY 16 11June 29, 2023 12:00am March 06, 2024 9:58am start day 1 of menstrual cycle Start: 02-04-2021 End: 04-29-2021 take 1 tablet by mouth once daily Norethindrone (Contraceptive) 0.35 mg tablet Discontinued 0.35 mg PO DAILY 84 February 04, 2021 12:00am April 29, 2021 8:53am Start: 02-04-2021 End: 04-29-2021 oxyCODONE hydrochloride 5 mg oral tablet (20 sources) Opioid Agonist Start: 12-24-2020 End: 12-31-2020 take 1 tablet by mouth every six hours as needed for pain Oxycodone 5 MG tablet Discontinued 5 mg PO EVERY 6 HOURS NEEDED as needed for Pain Score 6-10/10 15 7 0 December 24, 2020 December 30, 2020 1:00am December 31, 2020 1:03am Status post delivery History of uterine scar from previous surgery Pnv #48-Wuyi-Zyagp Acid-Omega3 30 mg iron-10 mg iron-1 mg capsule (18 sources) Start: 12-24-2020 End: 08-16-2024 Pnv #77-Xrtn-Vvhan Acid-Omega3 30 mg iron-10 mg iron-1 mg capsule Discontinued 1 NMA PO DAILY December 24, 2020 6:46pm August 16, 2024 3:55pm Start: 12-24-2020 End: 08-16-2024 Pnv #00-Plzs-Kptrc Acid-Omeg a3 30 mg iron-10 mg iron-1 mg capsule Discontinued 1 NMA PO DAILY December 24, 2020 6:46pm August 16, 2024 3:55pm Start: 10-13-2020 End: 12-24-2020 Pnv #46-Cvhk-Cmsyd Acid-Omeg a3 30 mg iron-10 mg iron-1 mg capsule Discontinued 1 NMA PO DAILY 18 11October 13, 2020 2:13pm December 24, 2020 6:46pm Start: 10-13-2020 End: 12-24-2020 Pnv #00-Lkyd-Ujogk Acid-Omeg a3 30 mg iron-10 mg iron-1 mg capsule Discontinued 1 NMA PO DAILY October 13, 2020 2:13pm December 24, 2020 6:46pm Start: 07-17-2020 End: 10-13-2020 Pnv #08-Llga-Bpxgj Acid-Omeg a3 30 mg iron-10 mg iron-1 mg capsule Discontinued NMA PO July 17, 2020 12:00am October 13, 2020 2:14pm Pnv 23-Jjdu-Cdccl Acid-Bronson -3 30 mg iron-10 mg iron-1 mg capsule (12 sources) Start: 12-24-2020 End: 08-16-2024 Pnv 54-Enkd-Kkbur Acid-Bronson -3 30 mg iron-10 mg iron-1 mg capsule Discontinued 1 NMA PO DAILY December 24, 2020 6:46pm August 16, 2024 3:55pm Start: 10-13-2020 End: 12-24-2020 Pnv 55-Mkus-Rouoy Acid-Bronson -3 30 mg iron-10 mg iron-1 mg capsule Discontinued 1 NMA PO DAILY 18 11October 13, 2020 2:13pm December 24, 2020 6:46pm Start: 07-17-2020 End: 10-13-2020 Pnv 86-Axfj-Jklux Acid-Bronson -3 30 mg iron-10 mg iron-1 mg capsule Discontinued NMA PO July 17, 2020 12:00am October 13, 2020 2:14pm predniSONE 10 mg oral tablet (1 source) Start: 11-27-2019 End: 12-05-2019 predniSONE 10 mg oral tablet ; Take 3 tabs by mouth for 3 days then take 2 tabs by mouth for 3 days then take one tab by mouth for 3 days. Quantity: 18 Refills: 0 Ordered: 27-Nov-2019 YanelygianninikkiToño Trace Start: 27-Nov-2019 End: 05-Dec-2019 Status: Completed Generic Substitution Allowed Comments: It is very important that you take or use this exactly as directed. Do not skip doses or discontinue unless directed by your doctor.Obtain medical advice before taking any non-prescription drugs as some may affect the action of this medication.Take with food or milk. Comment on above: It is very important that you take or use this exactly as directed. Do not skip doses or discontinue unless directed by your doctor.Obtain medical advice before taking any non-prescription drugs as some may affect the action of this medication.Take with food or milk. vitamin#30 30 mg iron-10 mg iron-folic acid 1 mg-omg3 capsule (20 sources) Start: 10-13-2020 End: 12-24-2020 take 1 capsule by mouth once daily vitamin#30 30 mg iron-10 mg iron-folic acid 1 mg-omg3 capsule Discontinued 1 CAP PO DAILY October 13, 2020 2:13pm December 24, 2020 6:46pm Start: 10-13-2020 End: 12-24-2020 take 1 capsule by mouth once daily vitamin#30 30 mg iron-10 mg iron-folic acid 1 mg-omg3 capsule Discontinued 1 CAP PO DAILY October 13, 2020 1:13pm December 24, 2020 5:46pm Start: 07-17-2020 End: 10-13-2020 vitamin#30 30 mg ir on-10 mg iron-folic acid 1 mg-omg3 capsule Discontinued CAP PO July 17, 2020 12:00am October 13, 2020 2:14pm Start: 07-17-2020 End: 10-13-2020 vitamin#30 30 mg ir on-10 mg iron-folic acid 1 mg-omg3 capsule Discontinued CAP PO July 16, 2020 11:00pm October 13, 2020 1:14pm progesterone 200 mg oral capsule (20 sources) Progesterone Start: 02-17-2023 End: 11-08-2023 Progesterone Micronized (Prometrium) 200 mg capsule Discontinued 200 mg VAGINAL ONCE April 04, 2023 1:41pm May 19, 2023 9:31am Vaginal [id number]-04-16 weeks Start: 02-17-2023 End: 05-19-2023 Progesterone Micronized (Pro metrium) 200 mg capsule Discontinued 200 MG VAGINAL ONCE April 04, 2023 12:41pm May 19, 2023 8:31am Vaginal [id number]-95-40 weeks (10 sources) Start: 04-30-2023 End: 05-19-2023 Start: 12-24-2020 Start: 12-11-2020 End: 02-04-2021 Start: 10-13-2020 End: 12-24-2020 Start: 07-17-2020 End: 10-13-2020 Problems Active Problems Problem Classification Problem Date Documented Date Episodic/Chronic Abdominal pain (2 sources) Abdominal pain; Translations: [Abdominal pain, unspecified site] 06-24-2021 Episodic Anxiety disorders (20 sources) Anxiety; Translations: [Anxiety disorder, unspecified] Onset: 09-13-2023 Chronic Comment on above: stable Bacterial infection; unspecified site (1 source) Streptococcus, group B, as the cause of diseases classified elsewhere; Translations: [Streptococcus, group B, as the cause of diseases classified elsewhere] Onset: 10-01-2025 Episodic Disorders of lipid metabolism (3 sources) Pure hypercholesterolemia; Translations: [Pure hypercholesterolemia, unspecified] Onset: 05-16-2024 05-16-2024 Chronic Early or threatened labor (11 sources) False labor before 37 completed weeks of gestation; Translations: [False labor before 37 completed weeks of gestation, unspecified trimester] 06-23-2023 Episodic Essential hypertension (4 sources) Hypertensive disorder; Translations: [Essential (primary) hypertension] Onset: 03-02-2023 09-13-2023 Chronic Genitourinary symptoms and ill-defined conditions (3 sources) Frequency of micturition; Translations: [Proteinuria, unspecified] Onset: 11-01-2022 Episodic Hypertension complicating ; childbirth and the puerperium (20 sources) Elevated blood pressure; Translations: [Unspecified maternal hypertension, unspecified trimester] 02-10-2023 Chronic Hypertension complicating ; childbirth and the puerperium (20 sources) -induced hypertension; Translations: [Gestational [-induced] hypertension without significant proteinuria, unspecified trimester] 04-18-2023 Episodic Comment on above: Growth US q 4 weeks at 28 weeks. NSTs-2x weekly starting at 32 weeks. Continue Labetalol. home BPs 2 x daily per MFM. weekly labs Influenza (2 sources) Influenza due to unidentified influenza virus with other respiratory manifestations; Translations: [Influenza due to unidentified influenza virus with other respiratory manifestations] Onset: 01-19-2025 Episodic Menstrual disorders (14 sources) Amenorrhea; Translations: [Amenorrhea, unspecified] Onset: 09-13-2023 09-13-2023 Chronic Nutritional deficiencies (5 sources) Vitamin D deficiency, unspecified; Translations: [Vitamin D deficiency] Onset: 05-16-2024 Chronic Other complications of ; puerperium affecting management of mother (13 sources) Deliveries by ; Translations: [Encounter for delivery without indication] 05-19-2023 Episodic Comment on above: RLTCS 37 preeclam psia Other complications of (20 sources) Maternal obesity complicating , childbirth and the puerperium, antepartum; Translations: [Obesity complicating , unspecified trimester] 03-28-2025 Chronic Comment on above: BMI 30.1; HgBA1C ord ered w/NOB BMI 30.1; HgBA1C nor mal Other complications of (1 source) Obesity complicating , unspecified trimester; Translations: [Obesity complicating , unspecified trimester] Onset: 10-01-2025 Chronic Other complications of (20 sources) High risk ; Translations: [Supervision of high risk , unspecified, unspecified trimester] 01-25-2023 Episodic Comment on above: ; SAJAN 11/11/25; PC: Rojas Nava & Ramakrishna; : TJ [id number], SAJAN 06/19/23 Vahe Durbin! PC oRjas Nava TJ PRR, ; SAJAN 11/11; PC: Rojas Nava & Ramakrishna; : TJ PRR, ; SAJAN 11/11; girl Concha Cortés PC: Rojas Nava & Ramakrishna; : TJ Other complications of (20 sources) Supervision of high risk , unspecified, unspecified trimester; Translations: [Supervision of unspecified high-risk ] Onset: 10-01-2025 Episodic Other complications of (2 sources) Other specified related conditions, first trimester; Translations: [Oth related conditions, first trimester] Onset: 11-01-2022 Episodic Other complications of (20 sources) H/O: premature delivery; Translations: [Supervision of other high risk pregnancies, unspecified trimester] 02-17-2023 Episodic Comment on above: Pre-term labor w/PPR OM @ 35weeks with 2nd child Other complications of (20 sources) Supervision of other high risk pregnancies, unspecified trimester; Translations: [Supervision of other high-risk ] Onset: 10-01-2025 02-17-2023 Episodic Other complications of (15 sources) Benign gestational thrombocytopenia; Translations: [Other diseases of the blood and blood-forming organs and certain disorders involving the immune mechanism complicating , unspecified trimester] 05-05-2023 Episodic Comment on above: discussed with MFM o n 05/05. no need to deliver prior to 37 weeks unless plts less than 100k and other signs leading to diagnosis of hellp. rpt labs week of 05/08 Other complications of (13 sources) Other diseases of the blood and blood-forming organs and certain disorders involving the immune mechanism complicating , unspecified trimester; Translations: [Coagulation defects complicating , childbirth, or the puerperium, unspecified as to episode of care or not applicable] 05-05-2023 Episodic Other complications of (20 sources) History of pre-eclampsia; Translations: [Supervision of with other poor reproductive or obstetric history, unspecified trimester] 03-28-2025 Episodic Comment on above: Baby ASA @ 12-28week s; Pre-e baseline labs ordered w/NOB Baby ASA @ 12-28week s; Pre-e labs nl Other complications of (20 sources) Urinary tract infection in ; Translations: [Unspecified infection of urinary tract in , unspecified trimester] 04-09-2025 Episodic Comment on above: treat in labor Other complications of (1 source) Unspecified infection of urinary tract in , unspecified trimester; Translations: [Unspecified infection of urinary tract in , unspecified trimester] Onset: 10-01-2025 Episodic Other complications of (1 source) Supervision of with other poor reproductive or obstetric history, unspecified trimester; Translations: [Supervision of with other poor reproductive or obstetric history, unspecified trimester] Onset: 10-01-2025 Episodic Other female genital disorders (10 sources) History of premature labor; Translations: [Personal history of pre-term labor] 03-28-2025 Episodic Comment on above: 2nd baby @ 35weeks Other nervous system disorders (2 sources) Paresthesia; Translations: [Disturbance of skin sensation] 06-24-2021 Episodic Other and delivery including normal (20 sources) ; Translations: [Encounter for supervision of normal , unspecified, unspecified trimester] Episodic Comment on above: Discussed genetic/ca rrier testing - undecided GBS Negative, NIPT l ow risk, discussed carrier testing. Anatomy US normal. Other upper respiratory disease (20 sources) Seasonal allergy; Translations: [Other seasonal allergic rhinitis] Onset: 09-14-2023 11-02-2022 Chronic Comment on above: Zyrtec Other upper respiratory disease (20 sources) Other seasonal allergic rhinitis; Translations: [Allergic rhinitis, cause unspecified] Onset: 09-14-2023 Chronic Other upper respiratory disease (4 sources) Allergic rhinitis; Translations: [Allergic rhinitis, unspecified] Onset: 02-08-2010 09-13-2023 Chronic Otitis media and related conditions (9 sources) Otitis; Translations: [Otitis media, unspecified, right ear] Onset: 11-08-2023 11-08-2023 Episodic Previous (20 sources) Maternal request for obstetric intervention; Translations: [Maternal care for unspecified type scar from previous delivery] Onset: 10-01-2025 02-17-2023 Episodic Comment on above: 15%- discussed with pt. plan RLTCS at 37 due to GHTN unless labor or very favorable cervix. RLTCS scheduled for 05/19 @ 7:10 with SM Residual codes; unclassified (20 sources) H/O: miscarriage; Translations: [Personal history of other complications of , childbirth and the puerperium] 11-02-2022 Episodic Comment on above: x2 w/1 D&C x2 - 2018 w/1 D&C Residual codes; unclassified (20 sources) History of uterine scar from previous surgery; Translations: [Other postprocedural status] Episodic Residual codes; unclassified (10 sources) History of premature rupture of membranes; Translations: [Personal history of other complications of , childbirth and the puerperium] 03-28-2025 Episodic Comment on above: 2nd baby @ 35weeks Residual codes; unclassified (20 sources) History of gestational hypertension; Translations: [Personal history of other complications of , childbirth and the puerperium] 03-28-2025 Episodic Residual codes; unclassified (1 source) Personal history of other complications of , childbirth and the puerperium; Translations: [Personal history of other complications of , childbirth and the puerperium] Onset: 10-01-2025 Episodic Residual codes; unclassified (1 source) 34 weeks gestation of ; Translations: [34 weeks gestation of ] Onset: 10-01-2025 Episodic Residual codes; unclassified (1 source) 32 weeks gestation of ; Translations: [32 weeks gestation of ] Onset: 09-19-2025 Episodic Residual codes; unclassified (1 source) 25 weeks gestation of ; Translations: [25 weeks gestation of ] Onset: 07-29-2025 Episodic Unclassified (2 sources) NUMBNESS IN BOTH LEGS 06-24-2021 Comment on above: NUMBNESS IN BOTH LEG S Unclassified (2 sources) FREQ URINATION 11-01-2022 Comment on above: FREQ URINATION Unclassified (1 source) Other specified diseases and conditions complicating ; Translations: [Other specified diseases and conditions complicating ] Onset: 09-30-2025 Past or Other Problems Problem Classification Problem Date Documented Da te Episodic/Chronic Conditions associated with dizziness or vertigo (9 sources) Dizziness; Translations: [Dizziness and giddiness] Onset: 09-14-2023 09-14-2023 Episodic Headache; including migraine (4 sources) Headache; Translations: [Headache] Onset: 09-13-2023 09-13-2023 Episodic Malaise and fatigue (4 sources) Fatigue; Translations: [Other fatigue] Onset: 09-13-2023 09-13-2023 Episodic Nutritional deficiencies (11 sources) Serum iron low; Translations: [Iron deficiency] Onset: 09-14-2023 09-14-2023 Episodic Other complications of ; puerperium affecting management of mother (4 sources) Patient encounter status; Translations: [Encounter for delivery without indication] Onset: 09-14-2023 09-14-2023 Episodic Other ear and sense organ disorders (4 sources) Otalgia, right ear; Translations: [Otalgia, unspecified] Onset: 09-13-2023 09-13-2023 Episodic Other gastrointestinal disorders (4 sources) Diarrhea; Translations: [Diarrhea, unspecified] Onset: 09-13-2023 09-13-2023 Episodic Other upper respiratory disease (5 sources) Nasal congestion; Translations: [Nasal congestion] Onset: 11-08-2023 11-08-2023 Episodic Other upper respiratory disease (1 source) Nasal congestion; Translations: [Nasal congestion] Onset: 11-08-2023 Episodic Other upper respiratory infections (6 sources) Acute maxillary sinusitis; Translations: [Acute maxillary sinusitis, unspecified] Onset: 11-08-2023 11-08-2023 Episodic Residual codes; unclassified (2 sources) 8 weeks gestation of ; Translations: [8 weeks gestation of ] Onset: 11-01-2022 Episodic Residual codes; unclassified (4 sources) Chill; Translations: [Chills (without fever)] Onset: 09-13-2023 09-13-2023 Episodic Residual codes; unclassified (4 sources) Complication of , childbirth and/or the puerperium; Translations: [Personal history of other complications of , childbirth and the puerperium] Onset: 09-14-2023 09-14-2023 Episodic Unclassified (3 sources) Onset: 11-08-2023 Resolved: 05-16-2024 11-08-2023 Results Test Name Value Interpretation Reference Range Facility Compliance Manager Office Visit Reporton 10-01-2025 Compliance Manager Office Visit Report [facility] [address], [address] [place] [address] OFFICE VISIT Date of Service: 10/01/25 MR#: [id number] Acct: [id number] Name: GERALD MILLER Rep #: [id number] : 1995 Provider: Dr. Angelia connolly MD Age/Sex: 30/F Location[place] [facility] [place] Status: Signed Intake Vital Signs 07/29/25 09:48 09/18/25 09:36 10/01/25 11:16 Height 5 ft 3 in 5 ft 3 in 5 ft 3 in Weight: 217 lb 6 oz BMI 38.5 BP 126/82 H Intake Visit Reasons: 34wk ob *SM csection Waist Fitter Required: No Is patient in pain?: No Allergies No Known Allergies Allergy (Verified 10/01/25 11:13) Medications ???Medication ???Instructions ???Recorded ???Confirmed ???Type docosahexaenoic acid 200 mg 1 mg PO DAILY 03/28/25 10/01/25 Hi story capsule ( DHA) aspirin 81 mg tablet 81 mg PO QDAY 06/18/25 10/01/25 Hi story Last Menstrual Period: 02/04/25 Zika: Zika virus screening: Negative : No PFSH PFSH Medical History Seasonal allergies History of premature rupture of membranes (PPROM) History of pre-term labor History of miscarriage Anxiety Surgical History Hx of wisdom tooth extraction S/P H/O dilation and curettage Social History adopted: No household members: spouse and children housing: house number of children: 3 current occupational status: employed current occupation: [employer] current occupational exposures/hazards: No pets and animals: Yes pets and animals: dog(s) history of recent travel: Yes ( - February 2025) out of state: Yes out of country: No sexually active: Yes Smoking Status: Never smoker second hand exposure: No alcohol intake: never substance use type: does not use well-balanced diet: daily or most days caffeine: Yes Type: carbonated beverages Number of servings: 1 eating out: 1-3 times/week during the past year weight has: remained stable what type of physical activity do you participate in: none khai/episcopal: Religion seatbelt use: always do you feel safe at home: Yes 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 Date Name GA/Weeks Outcome Route Bth Weight Gen Labor Lgth Anesthesia Del Locatn Provider FOB 07/21/18 4 spontaneous TJ 09/20/18 11 spontaneous TJ 11/23/18 Elijah 38 live - full term 7lbs 4oz Male spinal [place] [facility] TJ 12/24/20 Rojas 35 live - 6lbs 4oz Male spinal [facility] Dr Piedad Dailey TJ 05/19/23 Ramakrishna 37 live - full term 7lbs 9oz Male spinal [facility] Katia TJ Delivery Date: 07/21/18 Last Updated by: Gina Staley RN Passed naturally Delivery Date: 09/20/18 Last Updated by: Gina Staley RN D C Delivery Date: 11/23/18 Last Updated by: Gina Staley RN [facility] csec @ [facility]: CAT II FHT Delivery Date: 12/24/20 Last Updated by: Delmy Welsh PPROM Delivery Date: 05/19/23 Last Updated by: Alicia Renee RLTCS 37 wks preeclampsia HPI 34wk ob *SM csection Details: GERALD MILLER is a 30 year old who presents for routine OB visit. OB Visit SAJAN Calculator Estimated Delivery Date Method Current WG Current Estimate 11/11/25 LMP (Certain) 34w 1d Other Estimates 11/10/25 Ultrasound #1 34w 2d Expected Delivery Route/Plan repeat C/S with considenrg BS Specific Issue/Plans Covid status: [] Flu vaccine: na Tdap vaccine: given Rhogam: [na LARC form signed: declined Problem list reviewed and updated with the most current plan of care details and appropriate orders placed. Relevant counseling for the gestational age provided. Continue routine care and follow up unless otherwise noted in visit notes/problem list details Initial Weight: 177 lb Date -???-???-???-???-???-??? -???-???-???-???-???-??? - EGA Weight BP Urine Prot -???-???-???-???-???-??? -???-???-???-???-???-??? - Glucose FHR FuHt Pres Dilation -???-???-???-???-???-??? -???-???-???-???-???-??? - Effaced St Visit Note 04/07/25 -???-???-???-???-???-??? -???-???-???-???-???-??? - 8w 6d 177 lb 2 oz (+2 oz) 139/88 -???-???-???-???-???-??? -???-???-???-???-???-??? - 173 -???-???-???-???-???-??? -???-???-???-???-???-??? - KW- CRL cons with dates. Declines NIPT. KW- CRL cons with dates. Declines NIPT. start asa for GHTN/pre e 05/05/25 -???-???-???-???-???-??? -???-???-???-???-???-??? - 12w 6d 180 (more content not included)... Normal [facility] OB Triage Progress Noteon OB Triage Progress Note [facility] Medical Records Department [address] [place] [address] OB Triage Progress Note 09/22/25 2151 MR#: [id number] Acct: [id number] Name: GERALD MILLER Rep #: [id number] : 1995 30 From: Angelia Colindres MD PCP: Griselda Linton CONTOUR STITCHER-C Status:DEP I Y DOS: Location: WPOUT Progress Notes Date of Service: 09/19/25 Progress Note: 32 weeks elevated bps- given celestone for prematurity dose 2 09/22/25 2151 Date Angelia Colindres MD Cosigner Signature (if applicable): Date CC: BALBIR Linton; Dr. Angelia Colindres MD Signed Normal [facility] AST(SGOT)on 09-18-2025 AST [Catalytic activity/Vol] 21 U/L Normal <=31 [facility] Comment on above: Performed By: #### L 501.4405, L100.0500, L501.1400, L501.0900, L501.1105, L501.4100 #### [facility] [address] [place], [place], [id number] Alanine Aminotransferas (SGP T)on 09-18-2025 ALT [Catalytic activity/Vol] 14 U/L Normal <=34 [facility] Comment on above: Performed By: #### L 501.4405, L100.0500, L501.1400, L501.0900, L501.1105, L501.4100 #### [facility] [address] [place], [place], [id number] CBC-Complete Blood Cnt No Di ffon 09-18-2025 Erythrocyte distribution width (RBC) [Ratio] 13.2 % Normal 11.6-14.6 [facility] Comment on above: Performed By: #### L 501.4405, L100.0500, L501.1400, L501.0900, L501.1105, L501.4100 #### [facility] [address] [place], [place], [id number] Hematocrit (Bld) [Volume fraction] 34.3 % Low 37-47 [facility] Comment on above: Performed By: #### L 501.4405, L100.0500, L501.1400, L501.0900, L501.1105, L501.4100 #### [facility] [address] [place], [address] Hemoglobin (Bld) [Mass/Vol] 11.9 g/dL Low 12.0-15.0 [facility] Comment on above: Performed By: #### L 501.4405, L100.0500, L501.1400, L501.0900, L501.1105, L501.4100 #### [facility] [address] [place], [address] MCH (RBC) [Entitic mass] 28.9 pg Normal 27.0-32.0 [facility] Comment on above: Performed By: #### L 501.4405, L100.0500, L501.1400, L501.0900, L501.1105, L501.4100 #### [facility] [address] [place], [address] MCHC (RBC) [Mass/Vol] 34.7 g/dL Normal 32-36 [facility] Comment on above: Performed By: #### L 501.4405, L100.0500, L501.1400, L501.0900, L501.1105, L501.4100 #### [facility] [address] [place], [address] MCV (RBC) [Entitic vol] 83.3 fL Normal 81-99 [facility] Comment on above: Performed By: #### L 501.4405, L100.0500, L501.1400, L501.0900, L501.1105, L501.4100 #### [facility] [address] [place], [address] Platelet mean volume (Bld) [Entitic vol] 10.7 fL Normal 6.2-12.0 [facility] Comment on above: Performed By: #### L 501.4405, L100.0500, L501.1400, L501.0900, L501.1105, L501.4100 #### [facility] [address] [place], [address] Platelets (Bld) [#/Vol] 154 10*3/uL Normal 150-450 [facility] Comment on above: Performed By: #### L 501.4405, L100.0500, L501.1400, L501.0900, L501.1105, L501.4100 #### [facility] [address] [place], [address] RBC (Bld) [#/Vol] 4.12 10*6/uL Low 4.2-5.4 [facility] Comment on above: Performed By: #### L 501.4405, L100.0500, L501.1400, L501.0900, L501.1105, L501.4100 #### [facility] [address] [place], [address] RDW SD 39.8 fl Normal 35.1-43.9 [facility] Comment on above: Performed By: #### L 501.4405, L100.0500, L501.1400, L501.0900, L501.1105, L501.4100 #### [facility] [address] [place], [address] WBC (Bld) [#/Vol] 12.3 10*3/uL High 4.4-11.0 [facility] Comment on above: Performed By: #### L 501.4405, L100.0500, L501.1400, L501.0900, L501.1105, L501.4100 #### [facility] [address] [place], [address] OB Triage Progress Noteon OB Triage Progress Note [facility] Medical Records Department [address] [place] [address] OB Triage Progress Note 09/18/25 1044 MR#: [id number] Acct: [id number] Name: GERALD MILLER Rep #: [id number] : 1995 29 From: Angelia Colindres MD PCP: Griselda Linton, CONTOUR STITCHER-C Status:DEP CLI Y DOS: Location: WPOUT Progress Notes Date of Service: 09/18/25 Progress Note: Patient presents for triage evaluation secondary to elevated bps in office FHT: 150 Moderate variability reactive no decelerations category I tracing [place]: no regualr Contractions Assessment and plan: 32 weeks elevated blood pressures Reactive NST, labs WNL and all bps WNL here. celestone still given for history of pree with previous pregnancies. reassuring maternal and status patient discharged to home to follow-up as scheduled in office and tomorrow for repeat celestone. . See problem list details for additional plan information. Laboratory Studies: Laboratory Tests 09/18/25 Range/Units 09:50 WBC 12.3 H (4.4-11.0) K/mm3 RBC 4.12 L (4.2-5.4) M/mm3 Hgb 11.9 L (12.0-15.0) g/dL Hct 34.3 L (37-47) % MCV 83.3 (81-99) fL MCH 28.9 (27.0-32.0) pg MCHC 34.7 (32-36) g/dL RDW Std Deviation 39.8 (35.1-43.9) fl RDW Coeff of Sherif 13.2 (11.6-14.6) % Plt Count 154 (150-450) K/mm3 MPV 10.7 (6.2-12.0) fl Creatinine 0.53 L (0.70-1.20) mg/dL Estim Creat Clear Calc 174.98 (50-250) ml/min Est GFR (MDRD) Non-Af 130 (>60) Uric Acid 4.0 (2.6-6.0) mg/dL AST 21 (<=31) U/L ALT 14 (<=34) U/L U Random Total Protein 21.1 H (0.0-12.0) mg/dL Urine Creatinine 117.00 (28.00-217.00) mg/dL Protein/Creatinin Ratio 180 (0-200) mg/g CRE Charges/Coding Procedures Urinary/Genital 52xxx-59xxx: [id number] non-stress test Interp 09/19/25 1345 Date Angelia Colindres MD Cosigner Signature (if applicable): Date CC: CONTOUR STITCHER-Terrell Linton; Dr. Angelia Colindres MD Signed Normal [facility] Compliance Manager Office Visit Reporton 09-18-2025 Compliance Manager Office Visit Report [facility] [address], [address] [place] [address] OFFICE VISIT Date of Service: 09/18/25 MR#: [id number] Acct: [id number] Name: GERALD MILLER Rep #: [id number] : 1995 Provider: Dr. Angelia connolly MD Age/Sex: 29/F Location[place] [facility] [place] Status: Signed Intake Vital Signs 07/03/25 09:51 09/05/25 08:49 09/18/25 08:51 09/18/25 08:59 Height 5 ft 3 in 5 ft 3 in 5 ft 3 in Weight: 205 lb 7 oz 210 lb 1 oz BMI 36.3 37.2 BP 137/83 H 145/85 H 141/85 H Intake Visit Reasons: 32 wk ob *doc only Waist Fitter Required: No Is patient in pain?: No Allergies No Known Allergies Allergy (Verified 09/18/25 08:52) Medications ???Medication ???Instructions ???Recorded ???Confirmed ???Type docosahexaenoic acid 200 mg mg PO 03/28/25 09/18/25 History capsule ( DHA) ondansetron 4 mg disintegrating 4 mg PO Q6H PRN nausea and 5 09/18/25 Rx tablet vomiting #90 tabs aspirin 81 mg tablet 81 mg PO QDAY 06/18/25 09/18/25 Hi story Last Menstrual Period: 02/04/25 Zika: Zika virus screening: Negative : No PFSH PFSH Medical History Seasonal allergies History of premature rupture of membranes (PPROM) History of pre-term labor History of miscarriage Anxiety Surgical History Hx of wisdom tooth extraction S/P H/O dilation and curettage Social History adopted: No household members: spouse and children housing: house number of children: 3 current occupational status: employed current occupation: [employer] current occupational exposures/hazards: No pets and animals: Yes pets and animals: dog(s) history of recent travel: Yes ( - February 2025) out of state: Yes out of country: No sexually active: Yes Smoking Status: Never smoker second hand exposure: No alcohol intake: never substance use type: does not use well-balanced diet: daily or most days caffeine: Yes Type: carbonated beverages Number of servings: 1 eating out: 1-3 times/week during the past year weight has: remained stable what type of physical activity do you participate in: none khai/episcopal: Religion seatbelt use: always do you feel safe at home: Yes 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 Date Name GA/Weeks Outcome Route Bth Weight Gen Labor Lgth Anesthesia Del Locatn Provider FOB 07/21/18 4 spontaneous TJ 09/20/18 11 spontaneous TJ 11/23/18 Martin 38 live - full term 7lbs 4oz Male spinal Ashla nd TJ 12/24/20 Rojas 35 live - 6lbs 4oz Male spinal [facility] Dr Piedad YANG 05/19/23 Ramakrishna Lopez live - full term 7lbs 9oz Male spinal [facility] Katia YANG Delivery Date: 07/21/18 Last Updated by: Gina Staley RN Passed naturally Delivery Date: 09/20/18 Last Updated by: Gina Staley RN D C Delivery Date: 11/23/18 Last Updated by: Gina Staley RN [facility]: CAT II FHT Delivery Date: 12/24/20 Last Updated by: Delmy Welsh PPROM Delivery Date: 05/19/23 Last Updated by: Alicia Renee RLTCS 37 wks preeclampsia HPI 32 wk ob *doc only Details: GERALD MILLER is a 29 year old who presents for routine OB visit. OB Visit SAJAN Calculator Estimated Delivery Date Method Current WG Current Estimate 11/11/25 LMP (Certain) 32w 2d Other Estimates 11/10/25 Ultrasound #1 32w 3d Expected Delivery Route/Plan repeat C/S with SM considenrg BS Specific Issue/Plans Covid status: [] Flu vaccine: na Tdap vaccine: given Rhogam: [na LARC form signed: declined Problem list reviewed and updated with the most current plan of care details and appropriate orders placed. Relevant counseling for the gestational age provided. Continue routine care and follow up unless otherwise noted in visit notes/problem list details Initial Weight: 177 lb Date -???-???-???-???-???-??? -???-???-???-???-???-??? - EGA Weight BP Urine Prot -???-???-???-???-???-??? -???-???-???-???-???-??? - Glucose FHR FuHt Pres Dilation -???-???-???-???-???-??? -???-???-???-???-???-??? - Effaced St Visit Note 04/07/25 -???-???-???-???-???-??? -???-???-???-???-???-??? - 8w 6d 177 lb 2 oz (+2 oz) 139/88 -???-???-???-???-???-??? -???-???-???-???-???-??? - 173 -???-???-???-???-???-??? -???-???-???-???-???-??? - KW- CRL cons with dates. Declines (more content not included)... Normal [facility] Protein+Creatinine Ratio,Uri neon 09-18-2025 PROT:CRE RATIO 180 mg/g CRE Normal 0-200 [facility] Comment on above: Performed By: #### L 501.4405, L100.0500, L501.1400, L501.0900, L501.1105, L501.4100 #### [facility] [address] [place], [address] Protein (U) [Mass/Vol] 21.1 mg/dL High 0.0-12.0 [facility] Comment on above: Performed By: #### L 501.4405, L100.0500, L501.1400, L501.0900, L501.1105, L501.4100 #### [facility] [address] [place], [address] UR CREAT 117.00 mg/dL Normal 28.00-217.00 [facility] Comment on above: Performed By: #### L 501.4405, L100.0500, L501.1400, L501.0900, L501.1105, L501.4100 #### [facility] [address] [place], [address] Serum Creatinine AND GFRon 1 Creatinine [Mass/Vol] 0.53 mg/dL Low 0.70-1.20 [facility] Comment on above: Performed By: #### L 501.4405, L100.0500, L501.1400, L501.0900, L501.1105, L501.4100 #### [facility] [address] [place], [address] ECRCL 174.98 ml/min Normal 50-250 [facility] Comment on above: Performed By: #### L 501.4405, L100.0500, L501.1400, L501.0900, L501.1105, L501.4100 #### [facility] [address] [place], [address] GFR/1.73 sq M.predicted among non-blacks MDRD (S/P/Bld) [Vol rate/Area] 130 mL/min/{1.73_m2} Normal >60 [facility] Comment on above: Result Comment: mL/m in/1.73m2 CKD-EPI Creatinine Equation (2020) Performed By: #### L 501.4405, L100.0500, L501.1400, L501.0900, L501.1105, L501.4100 #### [facility] [address] [place], [address] Uric Acidon 09-18-2025 URIC 4.0 mg/dL Normal 2.6-6.0 [facility] Comment on above: Result Comment: The drugs N-Acetylcysteine and Metamizole may falsely depress this assay. Performed By: #### L 501.4405, L100.0500, L501.1400, L501.0900, L501.1105, L501.4100 #### [facility] [address] [place], [address] Laboratory - Chemistry and C hemistry - challengeOrdered By: Angelia Colindres on 09-05-2025 Glucose Ql (U) Negative [facility] - UrinalysisOrder ed By: Angelia Colindres on 09-05-2025 Protein Ql (U) Trace [facility] Comment on above: Office Urine Protein previously reported as Negative Compliance Manager Office Visit Reporton 09-05-2025 Compliance Manager Office Visit Report [facility] [address], [address] [place] [address] OFFICE VISIT Date of Service: 09/05/25 MR#: [id number] Acct: [id number] Name: GERALD MILLER Rep #: [id number] : 1995 Provider: Dr. Angelia connolly MD Age/Sex: 29/F Location[place] [facility] [place] Status: Signed Intake Vital Signs 07/03/25 09:51 08/21/25 14:28 09/05/25 08:49 Height 5 ft 3 in 5 ft 3 in 5 ft 3 in Weight: 205 lb 7 oz BMI 36.3 BP 137/83 H Intake Visit Reasons: 30 wk ob *doc only Waist Fitter Required: No Is patient in pain?: Yes (headache) Allergies No Known Allergies Allergy (Verified 09/05/25 08:57) Medications ???Medication ???Instructions ???Recorded ???Confirmed ???Type docosahexaenoic acid 200 mg mg PO 03/28/25 09/05/25 History capsule ( DHA) ondansetron 4 mg disintegrating 4 mg PO Q6H PRN nausea and 5 09/05/25 Rx tablet vomiting #90 tabs aspirin 81 mg tablet 81 mg PO QDAY 06/18/25 09/05/25 Hi story Last Menstrual Period: 02/04/25 : No PFSH PFSH Medical History Seasonal allergies History of premature rupture of membranes (PPROM) History of pre-term labor History of miscarriage Anxiety Surgical History Hx of wisdom tooth extraction S/P H/O dilation and curettage Social History adopted: No household members: spouse and children housing: house number of children: 3 current occupational status: employed current occupation: [employer] current occupational exposures/hazards: No pets and animals: Yes pets and animals: dog(s) history of recent travel: Yes ( - February 2025) out of state: Yes out of country: No sexually active: Yes Smoking Status: Never smoker second hand exposure: No alcohol intake: never substance use type: does not use well-balanced diet: daily or most days caffeine: Yes Type: carbonated beverages Number of servings: 1 eating out: 1-3 times/week during the past year weight has: remained stable what type of physical activity do you participate in: none khai/episcopal: Religion seatbelt use: always do you feel safe at home: Yes 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 Date Name GA/Weeks Outcome Route Bth Weight Gen Labor Lgth Anesthesia Del Locatn Provider FOB 07/21/18 4 spontaneous TJ 09/20/18 11 spontaneous TJ 11/23/18 Martin 38 live - full term 7lbs 4oz Male spinal Ashla nd TJ 12/24/20 Rojas 35 live - 6lbs 4oz Male spinal [facility] Dr Piedad Dailey TJ 05/19/23 Ramakrishna 37 live - full term 7lbs 9oz Male spinal [facility] Katia TJ Delivery Date: 07/21/18 Last Updated by: Gina Staley RN Passed naturally Delivery Date: 09/20/18 Last Updated by: Gina Staley RN D C Delivery Date: 11/23/18 Last Updated by: Gina Staley RN [facility]: CAT II FHT Delivery Date: 12/24/20 Last Updated by: Delmy Welsh PPROM Delivery Date: 05/19/23 Last Updated by: Alicia Renee [facility] 37 wks preeclampsia HPI 30 wk ob *doc only Details: GERALD MILLER is a 29 year old who presents for routine OB visit. OB Visit SAJAN Calculator Estimated Delivery Date Method Current WG Current Estimate 11/11/25 LMP (Certain) 30w 3d Other Estimates 11/10/25 Ultrasound #1 30w 4d Expected Delivery Route/Plan repeat C/S with SM considenrg BS Specific Issue/Plans Covid status: [] Flu vaccine: [] Tdap vaccine: [] Rhogam: [] LARC form signed: [] Problem list reviewed and updated with the most current plan of care details and appropriate orders placed. Relevant counseling for the gestational age provided. Continue routine care and follow up unless otherwise noted in visit notes/problem list details Initial Weight: 177 lb Date -???-???-???-???-???-??? -???-???-???-???-???-??? - EGA Weight BP Urine Prot -???-???-???-???-???-??? -???-???-???-???-???-??? - Glucose FHR FuHt Pres Dilation -???-???-???-???-???-??? -???-???-???-???-???-??? - Effaced St Visit Note 04/07/25 -???-???-???-???-???-??? -???-???-???-???-???-??? - 8w 6d 177 lb 2 oz (+2 oz) 139/88 -???-???-???-???-???-??? -???-???-???-???-???-??? - 173 -???-???-???-???-???-??? -???-???-???-???-???-??? - KW- CRL cons with dates. Declines NIPT. KW- CRL cons with dates. Declines NIPT. start asa for GHTN/pre e 05/05/25 (more content not included)... Normal [facility] Protein+Creatinine Ratio,Uri neon 09-05-2025 PROT:CRE RATIO 144 mg/g CRE Normal 0-200 [facility] Comment on above: Performed By: #### L 7000.1800, M100.2200, L501.0900 #### [facility] [address] [place], [address] Protein (U) [Mass/Vol] 21.0 mg/dL High 0.0-12.0 [facility] Comment on above: Performed By: #### L 7000.1800, M100.2200, L501.0900 #### [facility] [address] [place], [address] UR CREAT 146.00 mg/dL Normal 28.00-217.00 [facility] Comment on above: Performed By: #### L 7000.1800, M100.2200, L501.0900 #### [facility] [address] [place], [address] Random urine creatinine nolan urement (mass/volume)Ordered By: Angelia Colindres on 09-05-2025 Creatinine Unsp time (U) [Mass/Vol] 146.00 mg/dL 28.00-217.00 [facility] Urine protein measurement (m ass/volume)Ordered By: Angelia Colindres on 09-05-2025 Protein (U) [Mass/Vol] 21.0 mg/dL High 0.0-12.0 [facility] Urine protein/creatinine mas s ratioOrdered By: Angelia Colindres on 09-05-2025 Protein/Creatinine (U) [Mass ratio] 144 mg/g CRE 0-200 [facility] Absolute lymphocyte countOrd ered By: Angelia Colindres on 08-21-2025 Lymphocytes Auto (Unsp spec) [#/Vol] 1.26 10*3/uL 0.83-4.51 [facility] Absolute neutrophil countOrd ered By: Angelia Colindres on 08-21-2025 Neutrophils (Bld) [#/Vol] 10.7 10*3/uL High 2.0-7.7 [facility] Automated lymphocyte count a s percentage of total leukocytesOrdered By: Angelia Colindres on 08-21-2025 Lymphocytes/100 WBC Auto (Unsp spec) 9.9 % Low 19-41 [facility] Basophil percentageOrdered B y: Angelia Colindres on 08-21-2025 Basophils/100 WBC (Bld) 0.2 % 0-1 [facility] CBC W/Diff, Automatedon Absolute Lymph 1.26 X10 3/uL Normal 0.83-4.51 [facility] Comment on above: Performed By: #### L 7000.1800, M100.2200, L501.0900 #### [facility] [address] [place], [address] Absolute Neut 10.7 X10 3/uL High 2.0-7.7 [facility] Comment on above: Performed By: #### L 7000.1800, M100.2200, L501.0900 #### [facility] [address] [place], [address] Basophils/100 WBC (Bld) 0.2 % Normal 0-1 [facility] Comment on above: Performed By: #### L 7000.1800, M100.2200, L501.0900 #### [facility] [address] [place], [address] Eosinophils/100 WBC (Bld) 0.9 % Normal 0-5 [facility] Comment on above: Performed By: #### L 7000.1800, M100.2200, L501.0900 #### [facility] [address] [place], [address] Erythrocyte distribution width (RBC) [Ratio] 13.5 % Normal 11.6-14.6 [facility] Comment on above: Performed By: #### L 7000.1800, M100.2200, L501.0900 #### [facility] [address] [place], [address] Hematocrit (Bld) [Volume fraction] 35.5 % Low 37-47 [facility] Comment on above: Performed By: #### L 7000.1800, M100.2200, L501.0900 #### [facility] [address] [place], [address] Hemoglobin (Bld) [Mass/Vol] 11.9 g/dL Low 12.0-15.0 [facility] Comment on above: Performed By: #### L 7000.1800, M100.2200, L501.0900 #### [facility] [address] [place], [address] IG% 0.600 Normal 0.0-0.9 [facility] Comment on above: Result Comment: IG% - Immature Granulocytes (promyelocytes, myelocytes and metamyelocytes) > 1% indicates that a LEFT SHIFT is Present. Performed By: #### L 7000.1800, M100.2200, L501.0900 #### [facility] [address] [place] [place], [address] Lymphocytes/100 WBC (Bld) 9.9 % Low 19-41 [facility] Comment on above: Performed By: #### L 7000.1800, M100.2200, L501.0900 #### [facility] [address] [place], [address] MCH (RBC) [Entitic mass] 29.1 pg Normal 27.0-32.0 [facility] Comment on above: Performed By: #### L 7000.1800, M100.2200, L501.0900 #### [facility] [address] [place], [address] MCHC (RBC) [Mass/Vol] 33.5 g/dL Normal 32-36 [facility] Comment on above: Performed By: #### L 7000.1800, M100.2200, L501.0900 #### [facility] [address] [place], [address] MCV (RBC) [Entitic vol] 86.8 fL Normal 81-99 [facility] Comment on above: Performed By: #### L 7000.1800, M100.2200, L501.0900 #### [facility] [address] [place], [address] Monocytes/100 WBC (Bld) 4.8 % Normal 0-10 [facility] Comment on above: Performed By: #### L 7000.1800, M100.2200, L501.0900 #### [facility] [address] [place], [address] Neutrophils/100 WBC (Bld) 83.6 % High 47-70 [facility] Comment on above: Performed By: #### L 7000.1800, M100.2200, L501.0900 #### [facility] [address] [place], [address] Nucleated RBC (Bld) [#/Vol] 0 10*3/uL Normal 0-5 [facility] Comment on above: Performed By: #### L 7000.1800, M100.2200, L501.0900 #### [facility] [address] [place], [address] Platelet mean volume (Bld) [Entitic vol] 11.2 fL Normal 6.2-12.0 [facility] Comment on above: Performed By: #### L 7000.1800, M100.2200, L501.0900 #### [facility] [address] [place], [address] Platelets (Bld) [#/Vol] 174 10*3/uL Normal 150-450 [facility] Comment on above: Performed By: #### L 7000.1800, M100.2200, L501.0900 #### [facility] [address] [place], [address] RBC (Bld) [#/Vol] 4.09 10*6/uL Low 4.2-5.4 [facility] Comment on above: Performed By: #### L 7000.1800, M100.2200, L501.0900 #### [facility] [address] [place], [address] RDW SD 42.3 fl Normal 35.1-43.9 [facility] Comment on above: Performed By: #### L 7000.1800, M100.2200, L501.0900 #### [facility] [address] [place], [address] WBC (Bld) [#/Vol] 12.7 10*3/uL High 4.4-11.0 [facility] Comment on above: Performed By: #### L 7000.1800, M100.2200, L501.0900 #### [facility] [address] [place], [address] Eosinophil percentageOrdered By: Angelia Colindres on 08-21-2025 Eosinophils/100 WBC (Bld) 0.9 % 0-5 [facility] Erythrocyte distribution wid th ratioOrdered By: Angelia Colindres on 08-21-2025 Erythrocyte distribution width (RBC) [Ratio] 13.5 % 11.6-14.6 [facility] Erythrocyte distribution wid th standard deviationOrdered By: Angelia Colindres on 08-21-2025 Erythrocyte distribution width (RBC) [Ratio] 42.3 fl 35.1-43.9 [facility] Glucose Challenge Gest 1H 50 bharti 08-21-2025 GLU GEST 50g 1H 101 mg/dL Normal 70-140 [facility] Comment on above: Performed By: #### L 7000.1800, M100.2200, L501.0900 #### [facility] [address] [place], [address] Glucose measurement at 2 safia rs post-dose gestational glucose tolerance testOrdered By: Angelia Colindres on 08-21-2025 Glucose [Mass/Vol] 101 mg/dL 70-140 [facility] HIVon 08-21-2025 HIV Non-Reactive Normal Nonreactive [facility] Comment on above: Result Comment: Non- Reactive Reactive Repeatedly reactive samples must be confirmed according to CDC recommended confirmatory algorithms. The subresults for either HIVAG or AHIV can be used as an aid in the selection of the confirmation algorithm for reactive samples. Send out specimens with Reactive results to [facility] for confirmation. Order the HIV antibody detection and differentiation: lc#[id number] Performed By: #### L 7000.1800, M100.2200, L501.0900 #### [facility] [address] [place], [address] Hematocrit Auto (Bld) [Volum e fraction]Ordered By: Angelia Colindres on 08-21-2025 Hematocrit (Bld) [Volume fraction] 35.5 % Low 37-47 [facility] Hemoglobin measurementOrdere d By: Angelia Colindres on 08-21-2025 Hemoglobin (Bld) [Mass/Vol] 11.9 g/dL Low 12.0-15.0 [facility] Immature granulocytes/100 WB C Auto (Bld)Ordered By: Angelia Colindres on 08-21-2025 Immature granulocytes/100 WBC (Bld) 0.600 % 0.0-0.9 [facility] Comment on above: IG% - Immature Granu locytes (promyelocytes, myelocytes and metamyelocytes) > 1% indicates that a LEFT SHIFT is Present. MCV (mean corpuscular volume ) determinationOrdered By: Angelia Colindres on 08-21-2025 MCV (RBC) [Entitic vol] 86.8 fL 81-99 [facility] Mean corpuscular hemoglobin (MCH) determinationOrdered By: Angelia Colindres on 08-21-2025 MCH (RBC) [Entitic mass] 29.1 pg 27.0-32.0 [facility] Mean corpuscular hemoglobin concentration (MCHC) determinationOrdered By: Angelia Colindres on 08-21-2025 MCHC (RBC) [Mass/Vol] 33.5 g/dL 32-36 [facility] Mean platelet volume determi nationOrdered By: Angeliahay Colindres on 08-21-2025 Platelet mean volume (Bld) [Entitic vol] 11.2 fL 6.2-12.0 [facility] Monocyte percentageOrdered B y: Angelia Colindres on 08-21-2025 Monocytes/100 WBC (Bld) 4.8 % 0-10 [facility] Neutrophil percentageOrdered By: Angelia Colindres on 08-21-2025 Neutrophils/100 WBC (Bld) 83.6 % High 47-70 [facility] No Panel InformationOrdered By: Angelia Colindres on 08-21-2025 HIV (1&2) Antibody Non-Reactive Nonreactive [facility] Comment on above: Non-ReactiveReactive Repeatedly reactive samples must be confirmed according to CDC recommended confirmatory algorithms. The subresults for either HIVAG or AHIV can be used as an aid in the selection of the confirmation algorithm for reactive samples.Send out specimens with Reactive results to [facility] for confirmation.Order the HIV antibody detection and differentiation: #[id number] Nucleated red blood cell per centageOrdered By: Angelia Colindres on 08-21-2025 Nucleated RBC/100 WBC (Bld) [Ratio] 0 % 0-5 [facility] Compliance Manager Office Visit Reporton 08-21-2025 Compliance Manager Office Visit Report [facility] [address], [address] [place] [address] OFFICE VISIT Date of Service: 08/21/25 MR#: [id number] Acct: [id number] Name: GERALD MILLER Rep #: [id number] : 1995 Provider: Dr. nAgelia connolly MD Age/Sex: 29/F [place] [facility] [place] Status: Signed Intake Vital Signs 07/03/25 09:51 07/29/25 09:48 08/21/25 14:24 08/21/25 14:28 08/21/25 14:44 Height 5 ft 3 in 5 ft 3 in 5 ft 3 in 5 ft 3 in Weight: 201 lb BMI 35.6 BP 146/81 H 126/78 H 126/78 H Intake Visit Reasons: 28 wk ob/ glucose *doc only Waist Fitter Required: No Is patient in pain?: Yes (headache) Allergies No Known Allergies Allergy (Verified 08/21/25 14:26) Medications ???Medication ???Instructions ???Recorded ???Confirmed ???Type docosahexaenoic acid 200 mg mg PO 03/28/25 08/21/25 History capsule ( DHA) ondansetron 4 mg disintegrating 4 mg PO Q6H PRN nausea and 5 08/21/25 Rx tablet vomiting #90 tabs aspirin 81 mg tablet 81 mg PO QDAY 06/18/25 08/21/25 Hi story Last Menstrual Period: 02/04/25 Zika: Zika virus screening: Negative : No PFSH PFSH Medical History Seasonal allergies History of premature rupture of membranes (PPROM) History of pre-term labor History of miscarriage Anxiety Surgical History Hx of wisdom tooth extraction S/P H/O dilation and curettage Social History adopted: No household members: spouse and children housing: house number of children: 3 current occupational status: employed current occupation: [employer] current occupational exposures/hazards: No pets and animals: Yes pets and animals: dog(s) history of recent travel: Yes ( - February 2025) out of state: Yes out of country: No sexually active: Yes Smoking Status: Never smoker second hand exposure: No alcohol intake: never substance use type: does not use well-balanced diet: daily or most days caffeine: Yes Type: carbonated beverages Number of servings: 1 eating out: 1-3 times/week during the past year weight has: remained stable what type of physical activity do you participate in: none khai/episcopal: Religion seatbelt use: always do you feel safe at home: Yes 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 Date Name GA/Weeks Outcome Route Bth Weight Gen Labor Lgth Anesthesia Del Locatn Provider FOB 07/21/18 4 spontaneous TJ 09/20/18 11 spontaneous TJ 11/23/18 Elijah 38 live - full term 7lbs 4oz Male spinal [place] nd TJ 12/24/20 Rojas 35 live - 6lbs 4oz Male spinal [facility] Dr Piedad Dailey TJ 05/19/23 Ramakrishna 37 live - full term 7lbs 9oz Male spinal [facility] Katia TJ Delivery Date: 07/21/18 Last Updated by: Gina Staley RN Passed naturally Delivery Date: 09/20/18 Last Updated by: Gina Staley RN D C Delivery Date: 11/23/18 Last Updated by: Gina Staley RN [facility]: CAT II FHT Delivery Date: 12/24/20 Last Updated by: Delmy Welsh PPROM Delivery Date: 05/19/23 Last Updated by: Alicia Renee RLTCS 37 wks preeclampsia HPI 28 wk ob/ glucose *doc only Details: GERALD MILLER is a 29 year old who presents for routine OB visit. OB Visit SAJAN Calculator Estimated Delivery Date Method Current WG Current Estimate 11/11/25 LMP (Certain) 28w 2d Other Estimates 11/10/25 Ultrasound #1 28w 3d Expected Delivery Route/Plan repeat C/S with considenrg BS Specific Issue/Plans Covid status: [] Flu vaccine: [] Tdap vaccine: [] Rhogam: [] LARC form signed: [] Problem list reviewed and updated with the most current plan of care details and appropriate orders placed. Relevant counseling for the gestational age provided. Continue routine care and follow up unless otherwise noted in visit notes/problem list details Initial Weight: 177 lb Date -???-???-???-???-???-??? -???-???-???-???-???-??? - EGA Weight BP Urine Prot -???-???-???-???-???-??? -???-???-???-???-???-??? - Glucose FHR FuHt Pres Dilation -???-???-???-???-???-??? -???-???-???-???-???-??? - Effaced St Visit Note 04/07/25 -???-???-???-???-???-??? -???-???-???-???-???-??? - 8w 6d 177 lb 2 oz (+2 oz) 139/88 -???-???-???-???-???-??? -???-???-???-???-???-??? - 173 -???-???-???-???-???-??? -???-???-???-???-???-??? - KW- CRL con (more content not included)... Normal [facility] Platelet countOrdered By: Lenora Colindres on 08-21-2025 Platelets (Bld) [#/Vol] 174 10*3/uL 150-450 [facility] RBC Auto (Bld) [#/Vol]Ordere d By: Angelia Colindres on 08-21-2025 RBC (Bld) [#/Vol] 4.09 10*6/uL Low 4.2-5.4 [facility] Syphilis Antibodieson 2024 Syphilis Abs Non-Reactive Normal Nonreactive [facility] Comment on above: Performed By: #### L 7000.1800, M100.2200, L501.0900 #### [facility] [address] [place], [address] White blood cell (WBC) count Ordered By: Angelia Colindres on 08-21-2025 WBC (Bld) [#/Vol] 12.7 10*3/uL High 4.4-11.0 [facility] Laboratory - Chemistry and C hemistry - challengeOrdered By: Angelia Colindres on 07-29-2025 Glucose Ql (U) Negative [facility] Laboratory - UrinalysisOrder ed By: Angelia Cooperosvaldo on 07-29-2025 Protein Ql (U) Negative [facility] Compliance Manager Office Visit Reporton 07-29-2025 Compliance Manager Office Visit Report [facility] [address], [address] [place] [address] OFFICE VISIT Date of Service: 07/29/25 MR#: [id number] Acct: [id number] Name: GERALD MILLER Rep #: [id number] : 1995 Provider: Dr. Angelia connolly MD Age/Sex: 29/F [place] [facility] [place]: Signed Intake Vital Signs 04/07/25 08:46 07/03/25 09:51 07/29/25 09:48 Height 5 ft 3 in 5 ft 3 in 5 ft 3 in Weight: 195 lb 6 oz BMI 34.6 BP 121/80 H Intake Visit Reasons: 25wk ob *doc only Waist Fitter Required: No Is patient in pain?: No Allergies No Known Allergies Allergy (Verified 07/29/25 09:55) Medications ???Medication ???Instructions ???Recorded ???Confirmed ???Type docosahexaenoic acid 200 mg mg PO 03/28/25 07/29/25 History capsule ( DHA) ondansetron 4 mg disintegrating 4 mg PO Q6H PRN nausea and 5 07/29/25 Rx tablet vomiting #90 tabs aspirin 81 mg tablet 81 mg PO QDAY 06/18/25 07/29/25 Hi story Last Menstrual Period: 02/04/25 Zika: Zika virus screening: Negative : No PFSH PFSH Medical History Seasonal allergies History of premature rupture of membranes (PPROM) History of pre-term labor History of miscarriage Anxiety Surgical History Hx of wisdom tooth extraction S/P H/O dilation and curettage Social History adopted: No household members: spouse and children housing: house number of children: 3 current occupational status: employed current occupation: [employer] current occupational exposures/hazards: No pets and animals: Yes pets and animals: dog(s) history of recent travel: Yes ( - February 2025) out of state: Yes out of country: No sexually active: Yes Smoking Status: Never smoker second hand exposure: No alcohol intake: never substance use type: does not use well-balanced diet: daily or most days caffeine: Yes Type: carbonated beverages Number of servings: 1 eating out: 1-3 times/week during the past year weight has: remained stable what type of physical activity do you participate in: none khai/episcopal: Religion seatbelt use: always do you feel safe at home: Yes 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 Date Name GA/Weeks Outcome Route Bth Weight Gen Labor Lgth Anesthesia Del Locatn Provider FOB 07/21/18 4 spontaneous TJ 09/20/18 11 spontaneous TJ 11/23/18 Elijah 38 live - full term 7lbs 4oz Male spinal [place] nd TJ 12/24/20 Rojas 35 live - 6lbs 4oz Male spinal [facility] Dr Piedad Dailey TJ 05/19/23 Ramakrishna 37 live - full term 7lbs 9oz Male spinal [facility] Katia TJ Delivery Date: 07/21/18 Last Updated by: Gina Staley RN Passed naturally Delivery Date: 09/20/18 Last Updated by: JAVID Christensen C Delivery Date: 11/23/18 Last Updated by: Gina Staley RN [facility]: CAT II FHT Delivery Date: 12/24/20 Last Updated by: Delmy Welsh PPROM Delivery Date: 05/19/23 Last Updated by: Alicia Renee RLTCS 37 wks preeclampsia HPI 25wk ob *doc only Details: GERALD MILLER is a 29 year old who presents for routine OB visit. OB Visit SAJAN Calculator Estimated Delivery Date Method Current WG Current Estimate 11/11/25 LMP (Certain) 25w 0d Other Estimates 11/10/25 Ultrasound #1 25w 1d Expected Delivery Route/Plan repeat C/S with ROMAN batemanidensandra MCCULLOUGH Specific Issue/Plans Covid status: [] Flu vaccine: [] Tdap vaccine: [] Rhogam: [] LARC form signed: [] Problem list reviewed and updated with the most current plan of care details and appropriate orders placed. Relevant counseling for the gestational age provided. Continue routine care and follow up unless otherwise noted in visit notes/problem list details Initial Weight: 177 lb Date -???-???-???-???-???-??? -???-???-???-???-???-??? - EGA Weight BP Urine Prot -???-???-???-???-???-??? -???-???-???-???-???-??? - Glucose FHR FuHt Pres Dilation -???-???-???-???-???-??? -???-???-???-???-???-??? - Effaced St Visit Note 04/07/25 -???-???-???-???-???-??? -???-???-???-???-???-??? - 8w 6d 177 lb 2 oz (+2 oz) 139/88 -???-???-???-???-???-??? -???-???-???-???-???-??? - 173 -???-???-???-???-???-??? -???-???-???-???-???-??? - KW- CRL cons with dates. Declines NIPT. KW- CRL cons with dates. Declines NIPT. start asa for (more content not included)... Normal [facility] Laboratory - Chemistry and C hemistry - challengeOrdered By: Angelia Colindres on 07-03-2025 Glucose Ql (U) Negative [facility] Laboratory - UrinalysisOrder ed By: Angelia Colindres on 07-03-2025 Protein Ql (U) Negative [facility] Compliance Manager Office Visit Reporton 07-03-2025 Compliance Manager Office Visit Report [facility] [address], [address] [place] [address] OFFICE VISIT Date of Service: 07/03/25 MR#: [id number] Acct: [id number] Name: GERALD MILLER Rep #: [id number] : 1995 Provider: Dr. Angelia connolly MD Age/Sex: 29/F [place] [facility] [place] Status: Signed Intake Vital Signs 04/07/25 08:46 06/18/25 08:32 07/03/25 09:39 07/03/25 09:51 Height 5 ft 3 in 5 ft 3 in 5 ft 3 in 5 ft 3 in Weight: 187 lb 5 oz BMI 33.1 BP 132/80 H Intake Visit Reasons: 21wk ob *doc only Waist Fitter Required: No Is patient in pain?: No Allergies No Known Allergies Allergy (Verified 07/03/25 09:38) Medications ???Medication ???Instructions ???Recorded ???Confirmed ???Type docosahexaenoic acid 200 mg mg PO 03/28/25 07/03/25 History capsule ( DHA) ondansetron 4 mg disintegrating 4 mg PO Q6H PRN nausea and 5 07/03/25 Rx tablet vomiting #90 tabs aspirin 81 mg tablet 81 mg PO QDAY 06/18/25 07/03/25 Hi story Last Menstrual Period: 02/04/25 Zika: Zika virus screening: Negative : No PFSH PFSH Medical History Seasonal allergies History of premature rupture of membranes (PPROM) History of pre-term labor History of miscarriage Anxiety Surgical History Hx of wisdom tooth extraction S/P H/O dilation and curettage Social History adopted: No household members: spouse and children housing: house number of children: 3 current occupational status: employed current occupation: [employer] current occupational exposures/hazards: No pets and animals: Yes pets and animals: dog(s) history of recent travel: Yes ( - February 2025) out of state: Yes out of country: No sexually active: Yes Smoking Status: Never smoker second hand exposure: No alcohol intake: never substance use type: does not use well-balanced diet: daily or most days caffeine: Yes Type: carbonated beverages Number of servings: 1 eating out: 1-3 times/week during the past year weight has: remained stable what type of physical activity do you participate in: none khai/episcopal: Religion seatbelt use: always do you feel safe at home: Yes 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 Date Name GA/Weeks Outcome Route Bth Weight Gen Labor Lgth Anesthesia Del Locatn Provider FOB 07/21/18 4 spontaneous TJ 09/20/18 11 spontaneous TJ 11/23/18 Elijah 38 live - full term 7lbs 4oz Male spinal [place] nd TJ 12/24/20 Rojas 35 live - 6lbs 4oz Male spinal [facility] Dr Piedad Dailey TJ 05/19/23 Ramakrishna 37 live - full term 7lbs 9oz Male spinal [facility] Katia TJ Delivery Date: 07/21/18 Last Updated by: Gina Staley RN Passed naturally Delivery Date: 09/20/18 Last Updated by: JAVID Christensen C Delivery Date: 11/23/18 Last Updated by: Gina Staley RN [facility]: CAT II FHT Delivery Date: 12/24/20 Last Updated by: Delmy Welsh PPROM Delivery Date: 05/19/23 Last Updated by: Alicia Renee RLTCS 37 wks preeclampsia HPI 21wk ob *doc only Details: GERALD MILLER is a 29 year old who presents for routine OB visit. OB Visit SAJAN Calculator Estimated Delivery Date Method Current WG Current Estimate 11/11/25 LMP (Certain) 21w 2d Other Estimates 11/10/25 Ultrasound #1 21w 3d Expected Delivery Route/Plan repeat C/S with SM Specific Issue/Plans Covid status: [] Flu vaccine: [] Tdap vaccine: [] Rhogam: [] LARC form signed: [] Problem list reviewed and updated with the most current plan of care details and appropriate orders placed. Relevant counseling for the gestational age provided. Continue routine care and follow up unless otherwise noted in visit notes/problem list details Initial Weight: 177 lb Date -???-???-???-???-???-??? -???-???-???-???-???-??? - EGA Weight BP Urine Prot -???-???-???-???-???-??? -???-???-???-???-???-??? - Glucose FHR FuHt Pres Dilation -???-???-???-???-???-??? -???-???-???-???-???-??? - Effaced St Visit Note 04/07/25 -???-???-???-???-???-??? -???-???-???-???-???-??? - 8w 6d 177 lb 2 oz (+2 oz) 139/88 -???-???-???-???-???-??? -???-???-???-???-???-??? - 173 -???-???-???-???-???-??? -???-???-???-???-???-??? - KW- CRL cons with dates. Declines NIPT. KW- CRL cons with dates. Declines NIPT. s (more content not included)... Normal [facility] Compliance Manager Office Visit Reporton 06-18-2025 Compliance Manager Office Visit Report [facility] [address], [address] [place] [address] OFFICE VISIT Date of Service: 06/18/25 MR#: [id number] Acct: [id number] Name: GERALD MILLER Rep #: [id number] : 1995 Provider: Dr. Flores Altamirano DO Age/Sex: 29/F Location: [facility] [place] Status: Signed Intake Vital Signs 06/04/25 10:15 06/18/25 08:32 06/18/25 08:44 Height 5 ft 3 in 5 ft 3 in Weight: 184 lb 2 oz 185 lb BMI 32.5 32.8 BP 143/93 H 137/83 H 129/85 H Intake Visit Reasons: 19wk ob BP check *per Waist Fitter Required: No Is patient in pain?: No Allergies No Known Allergies Allergy (Verified 06/18/25 08:44) Medications ???Medication ???Instructions ???Recorded ???Confirmed ???Type docosahexaenoic acid 200 mg mg PO 03/28/25 06/18/25 History capsule ( DHA) ondansetron 4 mg disintegrating 4 mg PO Q6H PRN nausea and 5 06/18/25 Rx tablet vomiting #90 tabs aspirin 81 mg tablet 81 mg PO QDAY 06/18/25 06/18/25 Hi story Last Menstrual Period: 02/04/25 Zika: Zika virus screening: Negative : No PFSH PFSH Medical History Seasonal allergies History of premature rupture of membranes (PPROM) History of pre-term labor History of miscarriage Anxiety Surgical History Hx of wisdom tooth extraction S/P H/O dilation and curettage Social History adopted: No household members: spouse and children housing: house number of children: 3 current occupational status: employed current occupation: [employer] current occupational exposures/hazards: No pets and animals: Yes pets and animals: dog(s) history of recent travel: Yes ( - February 2025) out of state: Yes out of country: No sexually active: Yes Smoking Status: Never smoker second hand exposure: No alcohol intake: never substance use type: does not use well-balanced diet: daily or most days caffeine: Yes Type: carbonated beverages Number of servings: 1 eating out: 1-3 times/week during the past year weight has: remained stable what type of physical activity do you participate in: none khai/episcopal: Religion seatbelt use: always do you feel safe at home: Yes 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 Date Name GA/Weeks Outcome Route Bth Weight Gen Labor Lgth Anesthesia Del Locatn Provider FOB 07/21/18 4 spontaneous TJ 09/20/18 11 spontaneous TJ 11/23/18 Martin 38 live - full term 7lbs 4oz Male spinal Ash[place] nd TJ 12/24/20 Rojas 35 live - 6lbs 4oz Male spinal [facility] Dr Piedad Dailey TJ 05/19/23 Ramakrishna 37 live - full term 7lbs 9oz Male spinal [facility] Katia TJ Delivery Date: 07/21/18 Last Updated by: Gina Staley RN Passed naturally Delivery Date: 09/20/18 Last Updated by: Gina Staley RN D C Delivery Date: 11/23/18 Last Updated by: Gina Staley RN [facility]: CAT II FHT Delivery Date: 12/24/20 Last Updated by: Delmy Welsh PPROM Delivery Date: 05/19/23 Last Updated by: Alicia Renee RLTCS 37 wks preeclampsia HPI 19wk ob BP check *per Details: GERALD MILLER is a 29 year old who presents for routine OB visit. OB Visit SAJAN Calculator Estimated Delivery Date Method Current WG Current Estimate 11/11/25 LMP (Certain) 19w 1d Other Estimates 11/10/25 Ultrasound #1 19w 2d Expected Delivery Route/Plan repeat C/S with SM Specific Issue/Plans Covid status: [] Flu vaccine: [] Tdap vaccine: [] Rhogam: [] LARC form signed: [] Problem list reviewed and updated with the most current plan of care details and appropriate orders placed. Relevant counseling for the gestational age provided. Continue routine care and follow up unless otherwise noted in visit notes/problem list details Initial Weight: 177 lb Date -???-???-???-???-???-??? -???-???-???-???-???-??? - EGA Weight BP Urine Prot -???-???-???-???-???-??? -???-???-???-???-???-??? - Glucose FHR FuHt Pres Dilation -???-???-???-???-???-??? -???-???-???-???-???-??? - Effaced St Visit Note 04/07/25 -???-???-???-???-???-??? -???-???-???-???-???-??? - 8w 6d 177 lb 2 oz (+2 oz) 139/88 -???-???-???-???-???-??? -???-???-???-???-???-??? - 173 -???-???-???-???-???-??? -???-???-???-???-???-??? - KW- CRL cons with dates. Declines NIPT. KW- CRL cons with dates. Declines (more content not included)... Normal [facility] Protein+Creatinine Ratio,Uri neon 06-18-2025 UR CREAT 39.00 mg/dL Normal 28.00-217.00 [facility] Comment on above: Performed By: #### L 7000.1800, M100.2200, L501.0900 #### [facility] [address] [place], [address] Random urine creatinine nolan urement (mass/volume)Ordered By: Flores Lyons on 06-18-2025 Creatinine Unsp time (U) [Mass/Vol] 39.00 mg/dL 28.00-217.00 [facility] Urine protein measurement (m ass/volume)Ordered By: Flores Lyons on 06-18-2025 Protein (U) [Mass/Vol] mg/dL 0.0-12.0 [facility] Urine protein/creatinine mas s ratioOrdered By: Flores Lyons on 06-18-2025 Protein/Creatinine (U) [Mass ratio] UNABLE TO CALCULATE mg/g CRE 0-200 [facility] Comment on above: Previous reported re sult: UNABLE TO CALCULATE mg/g CREEdited by: AUTOINS on 06/18/25:1342 AMENDED REPORT 06/18/25 1342 PROT:CRE RATIO previously reported as: UNABLE TO CALCULATE mg/g CRE Laboratory - Chemistry and C hemistry - challengeOrdered By: Angelia Colindres on 06-04-2025 Glucose Ql (U) Negative [facility] Laboratory - UrinalysisOrder ed By: Angelia Colindres on 06-04-2025 Protein Ql (U) Negative [facility] Compliance Manager Office Visit Reporton 06-04-2025 Compliance Manager Office Visit Report [facility] [address], [address] [place] [address] OFFICE VISIT Date of Service: 06/04/25 MR#: [id number] Acct: [id number] Name: GERALD MILLER Rep #: [id number] : 1995 Provider: Dr. Angelia connolly MD Age/Sex: 29/F Location[place] [facility] [place] Status: Signed Intake Vital Signs 04/07/25 08:46 05/05/25 08:53 06/04/25 10:15 06/04/25 10:57 Height 5 ft 3 in 5 ft 3 in 5 ft 3 in Weight: 177 lb 2 oz 180 lb 6 oz 184 lb 2 oz BMI 31.4 31.9 32.5 BP 139/88 H 144/87 H 143/93 H 126/85 H Intake Visit Reasons: 17wk ob *doc only Waist Fitter Required: No Is patient in pain?: No Allergies No Known Allergies Allergy (Verified 06/04/25 10:17) Medications ???Medication ???Instructions ???Recorded ???Confirmed ???Type docosahexaenoic acid 200 mg mg PO 03/28/25 06/04/25 History capsule ( DHA) ondansetron 4 mg disintegrating 4 mg PO Q6H PRN nausea and 5 06/04/25 Rx tablet vomiting #90 tabs Last Menstrual Period: 02/04/25 Zika: Zika virus screening: Negative : No PFSH PFSH Medical History Seasonal allergies History of premature rupture of membranes (PPROM) History of pre-term labor History of miscarriage Anxiety Surgical History Hx of wisdom tooth extraction S/P H/O dilation and curettage Social History adopted: No household members: spouse and children housing: house number of children: 3 current occupational status: employed current occupation: [employer] current occupational exposures/hazards: No pets and animals: Yes pets and animals: dog(s) history of recent travel: Yes ( - February 2025) out of state: Yes out of country: No sexually active: Yes Smoking Status: Never smoker second hand exposure: No alcohol intake: never substance use type: does not use well-balanced diet: daily or most days caffeine: Yes Type: carbonated beverages Number of servings: 1 eating out: 1-3 times/week during the past year weight has: remained stable what type of physical activity do you participate in: none khai/episcopal: Religion seatbelt use: always do you feel safe at home: Yes 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 Date Name GA/Weeks Outcome Route Bth Weight Infant Gen Labor Lgth Anesthesia Del Locatn Provider FOB 07/21/18 4 spontaneous TJ 09/20/18 11 spontaneous TJ 11/23/18 Elijah 38 live - full term 7lbs 4oz Male spinal [place] nd TJ 12/24/20 Rojas 35 live - 6lbs 4oz Male spinal [facility] Dr Piedad Dailey TJ 05/19/23 Ramakrishna 37 live - full term 7lbs 9oz Male spinal [facility] Katia TJ Delivery Date: 07/21/18 Last Updated by: Gina Staley RN Passed naturally Delivery Date: 09/20/18 Last Updated by: Gina Staley RN D C Delivery Date: 11/23/18 Last Updated by: Gina Staley RN [facility]: CAT II FHT Delivery Date: 12/24/20 Last Updated by: Delmy Welsh PPROM Delivery Date: 05/19/23 Last Updated by: Alicia Renee RLTCS 37 wks preeclampsia HPI 17wk ob *doc only Details: GERALD MILLER is a 29 year old who presents for routine OB visit. OB Visit SAJAN Calculator Estimated Delivery Date Method Current WG Current Estimate 11/11/25 LMP (Certain) 17w 1d Other Estimates 11/10/25 Ultrasound #1 17w 2d Expected Delivery Route/Plan repeat C/S with Specific Issue/Plans Covid status: [] Flu vaccine: [] Tdap vaccine: [] Rhogam: [] LARC form signed: [] Problem list reviewed and updated with the most current plan of care details and appropriate orders placed. Relevant counseling for the gestational age provided. Continue routine care and follow up unless otherwise noted in visit notes/problem list details Initial Weight: 177 lb Date -???-???-???-???-???-??? -???-???-???-???-???-??? - EGA Weight BP Urine Prot -???-???-???-???-???-??? -???-???-???-???-???-??? - Glucose FHR FuHt Pres Dilation -???-???-???-???-???-??? -???-???-???-???-???-??? - Effaced St Visit Note 04/07/25 -???-???-???-???-???-??? -???-???-???-???-???-??? - 8w 6d 177 lb 2 oz (+2 oz) 139/88 -???-???-???-???-???-??? -???-???-???-???-???-??? - 173 -???-???-???-???-???-??? -???-???-???-???-???-??? - KW- CRL cons with dates. Declines NIPT. KW- CRL cons with dates. Declines NIPT. start asa for GHTN (more content not included)... Normal [facility] - Chemistry and C hemistry - challengeOrdered By: Angelia Colindres on 05-05-2025 Glucose Ql (U) Negative [facility] - UrinalysisOrder ed By: Angelia Colindres on 05-05-2025 Protein Ql (U) Negative [facility] Compliance Manager Office Visit Reporton 05-05-2025 Compliance Manager Office Visit Report [facility] [address], [address] [place] [address] OFFICE VISIT Date of Service: 05/05/25 MR#: [id number] Acct: [id number] Name: GERALD MILLER Rep #: [id number] : 1995 Provider: Dr. Angelia connolly MD Age/Sex: 29/F Location[place] [facility] [place] Status: Signed Intake Vital Signs 08/16/24 15:58 04/07/25 08:46 05/05/25 08:53 Height 5 ft 3 in 5 ft 3 in 5 ft 3 in Weight: 180 lb 6 oz BMI 31.9 BP 144/87 H Intake Visit Reasons: 13WK OB *doc only Waist Fitter Required: No Is patient in pain?: No Allergies No Known Allergies Allergy (Verified 05/05/25 08:54) Medications ???Medication ???Instructions ???Recorded ???Confirmed ???Type docosahexaenoic acid 200 mg mg PO 03/28/25 05/05/25 History capsule ( DHA) ondansetron 4 mg disintegrating 4 mg PO Q6H PRN nausea and 5 05/05/25 Rx tablet vomiting #90 tabs Last Menstrual Period: 02/04/25 Zika: Zika virus screening: Negative : No PFSH PFSH Medical History Seasonal allergies History of premature rupture of membranes (PPROM) History of pre-term labor History of miscarriage Anxiety Surgical History Hx of wisdom tooth extraction S/P H/O dilation and curettage Social History adopted: No household members: spouse and children housing: house number of children: 3 current occupational status: employed current occupation: [employer] current occupational exposures/hazards: No pets and animals: Yes pets and animals: dog(s) history of recent travel: Yes ( - February 2025) out of state: Yes out of country: No sexually active: Yes Smoking Status: Never smoker second hand exposure: No alcohol intake: never substance use type: does not use well-balanced diet: daily or most days caffeine: Yes Type: carbonated beverages Number of servings: 1 eating out: 1-3 times/week during the past year weight has: remained stable what type of physical activity do you participate in: none khai/episcopal: Religion seatbelt use: always do you feel safe at home: Yes 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 Date Name GA/Weeks Outcome Route Bth Weight Gen Labor Lgth Anesthesia Del Locatn Provider FOB 07/21/18 4 spontaneous TJ 09/20/18 11 spontaneous TJ 11/23/18 Martin 38 live - full term 7lbs 4oz Male spinal Ashla nd TJ 12/24/20 Rojas 35 live - 6lbs 4oz Male spinal [facility] Dr Piedad Dailey TJ 05/19/23 Ramakrishna 37 live - full term 7lbs 9oz Male spinal [facility] Katia TJ Delivery Date: 07/21/18 Last Updated by: Gina Staley RN Passed naturally Delivery Date: 09/20/18 Last Updated by: Gina Staley RN D C Delivery Date: 11/23/18 Last Updated by: Gina Staley RN [facility]: CAT II FHT Delivery Date: 12/24/20 Last Updated by: Delmy Welsh PPROM Delivery Date: 05/19/23 Last Updated by: Alicia Renee RLTCS 37 wks preeclampsia HPI 13WK OB *doc only Details: GERALD MILLER is a 29 year old who presents for routine OB visit. OB Visit SAJAN Calculator Estimated Delivery Date Method Current WG Current Estimate 11/11/25 LMP (Certain) 12w 6d Other Estimates 11/10/25 Ultrasound #1 13w 0d Expected Delivery Route/Plan repeat C/S with Specific Issue/Plans Covid status: [] Flu vaccine: [] Tdap vaccine: [] Rhogam: [] LARC form signed: [] Problem list reviewed and updated with the most current plan of care details and appropriate orders placed. Relevant counseling for the gestational age provided. Continue routine care and follow up unless otherwise noted in visit notes/problem list details Initial Weight: 177 lb Date -???-???-???-???-???-??? -???-???-???-???-???-??? - EGA Weight BP Urine Prot -???-???-???-???-???-??? -???-???-???-???-???-??? - Glucose FHR FuHt Pres Dilation -???-???-???-???-???-??? -???-???-???-???-???-??? - Effaced St Visit Note 04/07/25 -???-???-???-???-???-??? -???-???-???-???-???-??? - 8w 6d 177 lb 2 oz (+2 oz) 139/88 -???-???-???-???-???-??? -???-???-???-???-???-??? - 173 -???-???-???-???-???-??? -???-???-???-???-???-??? - KW- CRL cons with dates. Declines NIPT. KW- CRL cons with dates. Declines NIPT. start asa for GHTN/pre e 05/05/25 -???-???-???-???-???-??? -???-???-???-???-???-??? - 12w (more content not included)... Normal [facility] Urine Cultureon 04-10-2025 URC #2 Below infection level. Mixed Gram Positive Organisms [place] Count 25,000-50,000 Streptococcus agalactiae (B) Streptococcus agalactiae (B) Streptococcus agalactiae (B): REACTION Ampicillin Islt HERMAN <=0.25 S cefTRIAXone Islt HERMAN <=0.12 Clindamycin.induced Susc Islt NEG Linezolid Islt HERMAN <=2 S Vancomycin Islt HERMAN 0.5 S Normal [facility] Comment on above: Performed By: #### L 7000.1800, M100.2200, L501.0900 #### [facility] [address] [place], [address] Chlamydia/GC DAVID aptimaon CHLAMY,NUC ACID Negative Normal Negative [facility] Comment on above: Performed By: #### L 7000.1800, M100.2200, L501.0900 #### [facility] [address] [place], [address] GC BY NUC ACID Negative Normal Negative [facility] Comment on above: Result Comment: Perf ormed at: =G - [facility] [address] [id number] [place] Tamper: Yoli Espinal MD, Phone: [phone] Performed By: #### L 7000.1800, M100.2200, L501.0900 #### [facility] [address] [place], [address] Absolute lymphocyte countOrd ered By: Enid Reyez on 04-07-2025 Lymphocytes Auto (Unsp spec) [#/Vol] 1.27 10*3/uL 0.83-4.51 [facility] Absolute neutrophil countOrd ered By: Enid Reyez on 04-07-2025 Neutrophils (Bld) [#/Vol] 8.1 10*3/uL High 2.0-7.7 [facility] Anion gap in Serum or Plasma Ordered By: Enid Reyez on 04-07-2025 Anion gap [Moles/Vol] 14 mmol/L -15 [facility] Automated lymphocyte count a s percentage of total leukocytesOrdered By: Enid Reyez on 04-07-2025 Lymphocytes/100 WBC Auto (Unsp spec) 12.7 % Low [facility] BUN/creatinine ratioOrdered By: Enid Reyez on 04-07-2025 Urea nitrogen/Creatinine [Mass ratio] 11.2 mg/mg 10-20 [facility] Basophil percentageOrdered B y: Enid Reyez on 04-07-2025 Basophils/100 WBC (Bld) 0.2 % 0-1 [facility] Bilirubin, totalOrdered By: Enid Reyez on 04-07-2025 Bilirubin [Mass/Vol] 0.41 mg/dL 0.00-1.30 [facility] CBC W/Diff, Automatedon 03-20 Absolute Lymph 1.27 X10 3/uL Normal 0.83-4.51 [facility] Comment on above: Performed By: #### L 7000.1800, M100.2200, L501.0900 #### [facility] [address] [place], [address] Absolute Neut 8.1 X10 3/uL High 2.0-7.7 [facility] Comment on above: Performed By: #### L 7000.1800, M100.2200, L501.0900 #### [facility] [address] [place], [address] Basophils/100 WBC (Bld) 0.2 % Normal 0-1 [facility] Comment on above: Performed By: #### L 7000.1800, M100.2200, L501.0900 #### [facility] [address] [place], [address] Eosinophils/100 WBC (Bld) 0.3 % Normal 0-5 [facility] Comment on above: Performed By: #### L 7000.1800, M100.2200, L501.0900 #### [facility] [address] [place], [address] Erythrocyte distribution width (RBC) [Ratio] 13.2 % Normal 11.6-14.6 [facility] Comment on above: Performed By: #### L 7000.1800, M100.2200, L501.0900 #### [facility] [address] [place], [address] Hematocrit (Bld) [Volume fraction] 39.8 % Normal 37-47 [facility] Comment on above: Performed By: #### L 7000.1800, M100.2200, L501.0900 #### [facility] [address] [place], [address] Hemoglobin (Bld) [Mass/Vol] 13.5 g/dL Normal 12.0-15.0 [facility] Comment on above: Performed By: #### L 7000.1800, M100.2200, L501.0900 #### [facility] [address] [place], [address] IG% 0.500 Normal 0.0-0.9 [facility] Comment on above: Result Comment: IG% - Immature Granulocytes (promyelocytes, myelocytes and metamyelocytes) > 1% indicates that a LEFT SHIFT is Present. Performed By: #### L 7000.1800, M100.2200, L501.0900 #### [facility] [address] [place], [address] Lymphocytes/100 WBC (Bld) 12.7 % Low 19-41 [facility] Comment on above: Performed By: #### L 7000.1800, M100.2200, L501.0900 #### [facility] [address] [place], [address] MCH (RBC) [Entitic mass] 28.6 pg Normal 27.0-32.0 [facility] Comment on above: Performed By: #### L 7000.1800, M100.2200, L501.0900 #### [facility] [address] [place], [address] MCHC (RBC) [Mass/Vol] 33.9 g/dL Normal 32-36 [facility] Comment on above: Performed By: #### L 7000.1800, M100.2200, L501.0900 #### [facility] [address] [place], [address] MCV (RBC) [Entitic vol] 84.3 fL Normal 81-99 [facility] Comment on above: Performed By: #### L 7000.1800, M100.2200, L501.0900 #### [facility] [address] [place], [address] Monocytes/100 WBC (Bld) 5.8 % Normal 0-10 [facility] Comment on above: Performed By: #### L 7000.1800, M100.2200, L501.0900 #### [facility] [address] [place], [address] Neutrophils/100 WBC (Bld) 80.5 % High 47-70 [facility] Comment on above: Performed By: #### L 7000.1800, M100.2200, L501.0900 #### [facility] [address] [place], [address] Nucleated RBC (Bld) [#/Vol] 0 10*3/uL Normal 0-5 [facility] Comment on above: Performed By: #### L 7000.1800, M100.2200, L501.0900 #### [facility] [address] [place], [address] Platelet mean volume (Bld) [Entitic vol] 11.1 fL Normal 6.2-12.0 [facility] Comment on above: Performed By: #### L 7000.1800, M100.2200, L501.0900 #### [facility] [address] [place], [address] Platelets (Bld) [#/Vol] 228 10*3/uL Normal 150-450 [facility] Comment on above: Performed By: #### L 7000.1800, M100.2200, L501.0900 #### [facility] [address] [place], [address] RBC (Bld) [#/Vol] 4.72 10*6/uL Normal 4.2-5.4 [facility] Comment on above: Performed By: #### L 7000.1800, M100.2200, L501.0900 #### [facility] [address] [place], [address] RDW SD 41.2 fl Normal 35.1-43.9 [facility] Comment on above: Performed By: #### L 7000.1800, M100.2200, L501.0900 #### [facility] [address] [place], [address] WBC (Bld) [#/Vol] 10.0 10*3/uL Normal 4.4-11.0 [facility] Comment on above: Performed By: #### L 7000.1800, M100.2200, L501.0900 #### [facility] [address] [place], [address] Carbon dioxide, total [Moles /volume] in Central venous bloodOrdered By: Enid Reyez on 04-07-2025 CO2 [Moles/Vol] 19.9 mmol/L Low 21.0-32.0 [facility] Chlamydia trachomatis rRNA d etection by probe and target amplification methodOrdered By: Enid Reyez on 04-07-2025 C. trachomatis rRNA DAVID+probe Ql (Unsp spec) Negative Negative [facility] Chloride assayOrdered By: Simon Reyez on 04-07-2025 Chloride [Moles/Vol] 102 mmol/L 98-108 [facility] Comprehensive Metabolic Prof ilon 04-07-2025 Albumin [Mass/Vol] 4.7 g/dL Normal 3.5-5.0 [facility] Comment on above: Performed By: #### L 501.4405, L100.0500, L501.1400, L501.0900, L501.1105, L501.4100 #### [facility] [address] [place], [address] Albumin/Globulin [Mass ratio] 1.3 {ratio} Normal 0.9-2.4 [facility] Comment on above: Performed By: #### L 501.4405, L100.0500, L501.1400, L501.0900, L501.1105, L501.4100 #### [facility] [address] [place], [address] ALK PHOS 76 U/L Normal 35-104 [facility] Comment on above: Performed By: #### L 501.4405, L100.0500, L501.1400, L501.0900, L501.1105, L501.4100 #### [facility] [address] [place], [address] ALT [Catalytic activity/Vol] 19 U/L Normal <=34 [facility] Comment on above: Performed By: #### L 501.4405, L100.0500, L501.1400, L501.0900, L501.1105, L501.4100 #### [facility] [address] [place], [address] AST [Catalytic activity/Vol] 27 U/L Normal <=31 [facility] Comment on above: Performed By: #### L 501.4405, L100.0500, L501.1400, L501.0900, L501.1105, L501.4100 #### [facility] [address] [place], [address] Bilirubin [Mass/Vol] 0.41 mg/dL Normal 0.00-1.30 [facility] Comment on above: Performed By: #### L 501.4405, L100.0500, L501.1400, L501.0900, L501.1105, L501.4100 #### [facility] [address] [place], [address] BUN/CRE 11.2 RATIO Normal 10-20 [facility] Comment on above: Performed By: #### L 501.4405, L100.0500, L501.1400, L501.0900, L501.1105, L501.4100 #### [facility] [address] [place], [address] Calcium [Mass/Vol] 9.6 mg/dL Normal 7.6-11.0 [facility] Comment on above: Performed By: #### L 501.4405, L100.0500, L501.1400, L501.0900, L501.1105, L501.4100 #### [facility] [address] [place], [address] Chloride [Moles/Vol] 102 mmol/L Normal 98-108 [facility] Comment on above: Performed By: #### L 501.4405, L100.0500, L501.1400, L501.0900, L501.1105, L501.4100 #### [facility] [address] [place], [address] CO2 [Moles/Vol] 19.9 mmol/L Low 21.0-32.0 [facility] Comment on above: Performed By: #### L 501.4405, L100.0500, L501.1400, L501.0900, L501.1105, L501.4100 #### [facility] [address] [place], [address] Creatinine [Mass/Vol] 0.61 mg/dL Low 0.70-1.20 [facility] Comment on above: Performed By: #### L 501.4405, L100.0500, L501.1400, L501.0900, L501.1105, L501.4100 #### [facility] [address] [place], [address] GAP 14 Normal 5-15 [facility] Comment on above: Performed By: #### L 501.4405, L100.0500, L501.1400, L501.0900, L501.1105, L501.4100 #### [facility] [address] [place], [address] GFR/1.73 sq M.predicted among non-blacks MDRD (S/P/Bld) [Vol rate/Area] 126 mL/min/{1.73_m2} Normal >60 [facility] Comment on above: Result Comment: mL/m in/1.73m2 CKD-EPI Creatinine Equation (2020) Performed By: #### L 501.4405, L100.0500, L501.1400, L501.0900, L501.1105, L501.4100 #### [facility] [address] [place], [address] Globulin (S) [Mass/Vol] 3.6 g/dL Normal 2.2-4.2 [facility] Comment on above: Performed By: #### L 501.4405, L100.0500, L501.1400, L501.0900, L501.1105, L501.4100 #### [facility] [address] [place], [address] Glucose [Mass/Vol] 80 mg/dL Normal 70-99 [facility] Comment on above: Performed By: #### L 501.4405, L100.0500, L501.1400, L501.0900, L501.1105, L501.4100 #### [facility] [address] [place], [address] Potassium [Moles/Vol] 4.1 mmol/L Normal 3.3-5.1 [facility] Comment on above: Performed By: #### L 501.4405, L100.0500, L501.1400, L501.0900, L501.1105, L501.4100 #### [facility] [address] [place], [address] Sodium [Moles/Vol] 136 mmol/L Normal 133-145 [facility] Comment on above: Performed By: #### L 501.4405, L100.0500, L501.1400, L501.0900, L501.1105, L501.4100 #### [facility] [address] [place], [address] T PROT 8.2 g/dL Normal 5.9-8.4 [facility] Comment on above: Performed By: #### L 501.4405, L100.0500, L501.1400, L501.0900, L501.1105, L501.4100 #### [facility] [address] [place], [address] Urea nitrogen [Mass/Vol] 7 mg/dL Normal - [facility] Comment on above: Performed By: #### L 501.4405, L100.0500, L501.1400, L501.0900, L501.1105, L501.4100 #### [facility] [address] [place], [address] Eosinophil percentageOrdered By: Enid Reyez on 04-07-2025 Eosinophils/100 WBC (Bld) 0.3 % 0-5 [facility] Erythrocyte distribution wid th ratioOrdered By: Enid Reyez on 04-07-2025 Erythrocyte distribution width (RBC) [Ratio] 13.2 % 11.6-14.6 [facility] Erythrocyte distribution wid th standard deviationOrdered By: Enid Reyez on 04-07-2025 Erythrocyte distribution width (RBC) [Ratio] 41.2 fl 35.1-43.9 [facility] Glomerular filtration rate ( GFR) estimation/1.73 sq m using serum, plasma, or whole bOrdered By: Enid Reyez on 04-07-2025 GFR/1.73 sq M.predicted among non-blacks MDRD (S/P/Bld) [Vol rate/Area] 126 mL/min/{1.73_m2} >60 [facility] Comment on above: mL/min/1.73m2 CKD-EP I Creatinine Equation (2021) HIVon 04-07-2025 HIV Non-Reactive Normal Nonreactive [facility] Comment on above: Result Comment: Non- Reactive Reactive Repeatedly reactive samples must be confirmed according to CDC recommended confirmatory algorithms. The subresults for either HIVAG or AHIV can be used as an aid in the selection of the confirmation algorithm for reactive samples. Send out specimens with Reactive results to [facility] for confirmation. Order the HIV antibody detection and differentiation: [id number] Performed By: #### L 501.4405, L100.0500, L501.1400, L501.0900, L501.1105, L501.4100 #### [facility] [address] [place], [address] Hematocrit Auto (Bld) [Volum e fraction]Ordered By: Enid Reyez on 04-07-2025 Hematocrit (Bld) [Volume fraction] 39.8 % 37-47 [facility] Hemoglobin A1con 04-07-2025 HbA1c (Bld) [Mass fraction] 5.1 % Normal <=5.6 [facility] Comment on above: Result Comment: Norm al < 5.7 % Prediabetic 5.7 - 6.4 % Diabetic >or= 6.5 % Please note range changes. Performed By: #### L 7000.1800, M100.2200, L501.0900 #### [facility] [address] [place], [address] Hemoglobin A1c percentageOrd ered By: Enid Reyez on 04-07-2025 HbA1c (Bld) [Mass fraction] 5.1 % <5.7 [facility] Comment on above: Normal < 5.7 % Predi abetic 5.7 - 6.4 % Diabetic >or= 6.5 % Please note range changes. Hemoglobin measurementOrdere d By: Enid Reyez on 04-07-2025 Hemoglobin (Bld) [Mass/Vol] 13.5 g/dL 12.0-15.0 [facility] Hepatitis C Antibodyon 04-07 Hepatitis C Ab Non-Reactive Normal Nonreactive [facility] Comment on above: Result Comment: Reac tive: Presumptive evidence of antibodies to HCV. Follow CDC recommendations for supplemental testing. Non-Reactive: Antibodies to HCV were not detected; does not exclude the possibility of exposure to HCV Reactive Results are presumptive evidence of antibodies to HCV. Follow CDC recommendations for supplemental testing. Order confirmation testing: HCV Quant by PCR testing - HCVPCR #[id number] Non Reactive: < 0.8 Equivocal: >/= 0.8 to < 1.0 Reactive: >/= 1.0 The CDC requires that a reactive/equivocal HCV antibody result be sent out for confirmation. HCV Quant by PCR testing. Performed By: #### L 501.4405, L100.0500, L501.1400, L501.0900, L501.1105, L501.4100 #### [facility] [address] [place], [place], [id number] Immature granulocytes/100 WB C Auto (Bld)Ordered By: Enid Reyez on 04-07-2025 Immature granulocytes/100 WBC (Bld) 0.500 % 0.0-0.9 [facility] Comment on above: IG% - Immature Granu locytes (promyelocytes, myelocytes and metamyelocytes) > 1% indicates that a LEFT SHIFT is Present. L3890.6102on 04-07-2025 HEP B Surf Ag Non-Reactive Normal Nonreactive [facility] Comment on above: Result Comment: Reac tive: Presumptive evidence of HBV. Repeatedly reactive samples must be confirmed using a neutralization test ([employer] HBsAg Confirmatory Test) Non-Reactive: HBsAg not detected; does not exclude the possibility of exposure to HBV Performed By: #### L 501.4405, L100.0500, L501.1400, L501.0900, L501.1105, L501.4100 #### [facility] [address] [place], [address] L509.4006on 04-07-2025 Rubella IgG REAC Normal Nonreactive [facility] Comment on above: Result Comment: Anti body Result: Interpretation Non-Reactive: Non-Immune Reactive: Immune The following results were obtained with the [employer] Rubella IgG assay. Results from assays of other manufacturers cannot be used interchangeably. Performed By: #### L 501.4405, L100.0500, L501.1400, L501.0900, L501.1105, L501.4100 #### [facility] [place], [address] Laboratory - Chemistry and C hemistry - challengeOrdered By: Enid Reyez on 04-07-2025 AST [Catalytic activity/Vol] 27 U/L <32 [facility] - Microbiology an d Antimicrobial susceptibilityOrdered By: Enid Reyez on 04-07-2025 HBV surface Ag Ql (S) Non-Reactive Nonreactive [facility] Comment on above: Reactive: Presumptiv e evidence of HBV. Repeatedly reactive samples must be confirmed using a neutralization test ([employer] HBsAg Confirmatory Test)Non-Reactive: HBsAg not detected; does not exclude the possibility of exposure to HBV MCV (mean corpuscular volume ) determinationOrdered By: Enid Reyez on 04-07-2025 MCV (RBC) [Entitic vol] 84.3 fL 81-99 [facility] Mean corpuscular hemoglobin (MCH) determinationOrdered By: Enid Reyez on 04-07-2025 MCH (RBC) [Entitic mass] 28.6 pg 27.0-32.0 [facility] Mean corpuscular hemoglobin concentration (MCHC) determinationOrdered By: Enid Reyez on 04-07-2025 MCHC (RBC) [Mass/Vol] 33.9 g/dL 32-36 [facility] Mean platelet volume determi nationOrdered By: Enid Reyez on 04-07-2025 Platelet mean volume (Bld) [Entitic vol] 11.1 fL 6.2-12.0 [facility] Monocyte percentageOrdered B y: Enid Reyez on 04-07-2025 Monocytes/100 WBC (Bld) 5.8 % 0-10 [facility] Neisseria gonorrhoeae nuclei c acid detection by amplified probe techniqueOrdered By: Enid Reyez on 04-07-2025 N. gonorrhoeae DNA DAVID+probe Ql (Unsp spec) Negative Negative [facility] Comment on above: Performed at: =[address] [id number] Director: Yoli Espinal MD, Phone: [phone] Neutrophil percentageOrdered By: Enid Reyez on 04-07-2025 Neutrophils/100 WBC (Bld) 80.5 % High 47-70 [facility] No Panel InformationOrdered By: Enid Reyez on 04-07-2025 HIV (1&2) Antibody Non-Reactive Nonreactive [facility] Comment on above: Non-ReactiveReactive Repeatedly reactive samples must be confirmed according to CDC recommended confirmatory algorithms. The subresults for either HIVAG or AHIV can be used as an aid in the selection of the confirmation algorithm for reactive samples.Send out specimens with Reactive results to [facility] for confirmation.Order the HIV antibody detection and differentiation: #[id number] Nucleated red blood cell per centageOrdered By: Enid Reyez on 04-07-2025 Nucleated RBC/100 WBC (Bld) [Ratio] 0 % 0-5 [facility] Compliance Manager Office Visit Reporton 04-07-2025 Compliance Manager Office Visit Report [facility] [address], [address] [place] [address] OFFICE VISIT Date of Service: 04/07/25 MR#: [id number] Acct: [id number] Name: GERALD MILLER Rep #: [id number] : 1995 Provider: FILI Renteria ams Age/Sex: 29/F Location: [facility] [place] Status: Signed Intake Vital Signs 08/16/24 15:58 04/07/25 08:46 Height 5 ft 3 in 5 ft 3 in Weight: 177 lb 2 oz BMI 31.4 BP 139/88 H Intake Visit Reasons: NOB LMP 02/04 Chief Complaint: New OB Waist Fitter Required: No Is patient in pain?: No Allergies No Known Allergies Allergy (Verified 04/07/25 08:44) Medications ???Medication ???Instructions ???Recorded ???Confirmed ???Type docosahexaenoic acid 200 mg mg PO 03/28/25 04/07/25 History capsule ( DHA) Last Menstrual Period: 02/04/25 Have you fallen in the past year?: No PFSH PFSH Medical History Seasonal allergies History of premature rupture of membranes (PPROM) History of pre-term labor History of miscarriage Anxiety Surgical History Hx of wisdom tooth extraction S/P H/O dilation and curettage Social History adopted: No household members: spouse and children housing: house number of children: 3 current occupational status: employed current occupation: [employer] current occupational exposures/hazards: No pets and animals: Yes pets and animals: dog(s) history of recent travel: Yes ( - February 2025) out of state: Yes out of country: No sexually active: Yes Smoking Status: Never smoker second hand exposure: No alcohol intake: never substance use type: does not use well-balanced diet: daily or most days caffeine: Yes Type: carbonated beverages Number of servings: 1 eating out: 1-3 times/week during the past year weight has: remained stable what type of physical activity do you participate in: none khai/episcopal: Religion seatbelt use: always do you feel safe at home: Yes 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 Date Name GA/Weeks Outcome Route Bth Weight Gen Labor Lgth Anesthesia Del Locatn Provider FOB 07/21/18 4 spontaneous TJ 09/20/18 11 spontaneous TJ 11/23/18 Elijah 38 live - full term 7lbs 4oz Male spinal [facility] nd TJ 12/24/20 Rojas 35 live - 6lbs 4oz Male spinal [facility] Dr Piedad Dailey TJ 05/19/23 Ramakrishna 37 live - full term 7lbs 9oz Male spinal [facility] Katia TJ Delivery Date: 07/21/18 Last Updated by: Gina Staley RN Passed naturally Delivery Date: 09/20/18 Last Updated by: JAVID Christensen C Delivery Date: 11/23/18 Last Updated by: Gina Staley RN [facility]: CAT II FHT Delivery Date: 12/24/20 Last Updated by: Delmy Welsh PPROM Delivery Date: 05/19/23 Last Updated by: Alicia Renee RLTCS 37 wks preeclampsia HPI NOB LMP 02/04 Details: GERALD MILLER is a 29 year old who presents for New OB visit. OB Visit SAJAN Calculator Estimated Delivery Date Method Current WG Current Estimate 11/11/25 LMP (Certain) 8w 6d Other Estimates 11/10/25 Ultrasound #1 9w 0d Estimated Due Date: 11/11/23 Expected Delivery Route/Plan repeat C/S Specific Issue/Plans Covid status: [] Flu vaccine: [] Tdap vaccine: [] Rhogam: [] LARC form signed: [] Problem list reviewed and updated with the most current plan of care details and appropriate orders placed. Relevant counseling for the gestational age provided. Continue routine care and follow up unless otherwise noted in visit notes/problem list details Initial Weight: 177 lb Date -???-???-???-???-???-??? -???-???-???-???-???-??? - EGA Weight BP Urine Prot -???-???-???-???-???-??? -???-???-???-???-???-??? - Glucose FHR FuHt Pres Dilation -???-???-???-???-???-??? -???-???-???-???-???-??? - Effaced St Visit Note 04/07/25 -???-???-???-???-???-??? -???-???-???-???-???-??? - 8w 6d 177 lb 2 oz (+2 oz) 139/88 -???-???-???-???-???-??? -???-???-???-???-???-??? - 173 -???-???-???-???-???-??? -???-???-???-???-???-??? - KW- CRL cons with dates. Declines NIPT. KW- CRL cons with dates. Declines NIPT. start asa for GHTN/pre e Menstrual History Last Menstrual Period: 02/04/25 Reported LMP: definite Normal amount/duration: Yes Frequency in days: 28 On hormonal BC at conception: No hCG+: 03/04/25 Antepartum Record Geneti (more content not included)... Normal [facility] Platelet countOrdered By: Simon Reyez on 04-07-2025 Platelets (Bld) [#/Vol] 228 10*3/uL 150-450 [facility] Potassium measurement (mass/ volume)Ordered By: Enid Reyez on 04-07-2025 Potassium (Unsp spec) [Mass/Vol] 4.1 mmol/L 3.3-5.1 [facility] Protein+Creatinine Ratio,Uri neon 04-07-2025 PROT:CRE RATIO 118 mg/g CRE Normal 0-200 [facility] Comment on above: Performed By: #### L 7000.1800, M100.2200, L501.0900 #### [facility] [address] [place], [address] Protein (U) [Mass/Vol] 13.1 mg/dL High 0.0-12.0 [facility] Comment on above: Performed By: #### L 7000.1800, M100.2200, L501.0900 #### [facility] [address] [place], [address] UR CREAT 111.00 mg/dL Normal 28.00-217.00 [facility] Comment on above: Performed By: #### L 7000.1800, M100.2200, L501.0900 #### [facility] [address] [place], [address] RBC Auto (Bld) [#/Vol]Ordere d By: Enid Reyez on 04-07-2025 RBC (Bld) [#/Vol] 4.72 10*6/uL 4.2-5.4 [facility] [place] [facility] Random urine creatinine nolan urement (mass/volume)Ordered By: Enid Reyez on 04-07-2025 Creatinine Unsp time (U) [Mass/Vol] 111.00 mg/dL 28.00-217.00 [facility] Serum creatinine measurement (mass/volume)Ordered By: Enid Reyez on 04-07-2025 Creatinine [Mass/Vol] 0.61 mg/dL Low 0.70-1.20 [facility] Serum globulin measurementOr dered By: Enid Reyez on 04-07-2025 Globulin (S) [Mass/Vol] 3.6 g/dL 2.2-4.2 [facility] Serum glucose measurement (m ass/volume)Ordered By: Enid Reyez on 04-07-2025 Glucose [Mass/Vol] 80 mg/dL 70-99 [facility] Serum or plasma alanine bowers otransferase (ALT) measurementOrdered By: Enid Reyez on 04-07-2025 ALT [Catalytic activity/Vol] 19 U/L <35 [facility] Serum or plasma albumin nolan urement (mass/volume)Ordered By: Enid Reyez on 04-07-2025 Albumin [Mass/Vol] 4.7 g/dL 3.5-5.0 [facility] Serum or plasma albumin/glob ulin mass ratioOrdered By: Enid Reyez on 04-07-2025 Albumin/Globulin [Mass ratio] 1.3 {ratio} 0.9-2.4 [facility] Serum or plasma alkaline ran sphatase measurementOrdered By: Enid Reyez on 04-07-2025 ALP [Catalytic activity/Vol] 76 U/L 35-104 [facility] Serum or plasma calcium nolan urement (mass/volume)Ordered By: Enid Reyez on 04-07-2025 Calcium [Mass/Vol] 9.6 mg/dL 7.6-11.0 [facility] Serum or plasma urea nitroge n measurement (mass/volume)Ordered By: Enid Reyez on 04-07-2025 Urea nitrogen [Mass/Vol] 7 mg/dL 4-19 [facility] Sodium levelOrdered By: Magdalena Reyez on 04-07-2025 Sodium [Moles/Vol] 136 mmol/L 133-145 [facility] Syphilis Antibodieson 2024 Syphilis Abs Non-Reactive Normal Nonreactive [facility] Comment on above: Performed By: #### L 501.4405, L100.0500, L501.1400, L501.0900, L501.1105, L501.4100 #### [facility] [address] [place], [address] Total proteinOrdered By: Simone Reyez on 04-07-2025 Protein [Mass/Vol] 8.2 g/dL 5.9-8.4 [facility] Type AND Screenon 04-07-2025 Ab SCREEN GEL Negative Normal [facility] Comment on above: Order Comment: PN Performed By: #### L 7000.1800, M100.2200, L501.0900 #### [facility] [address] [place], [address] Urine cultureOrdered By: Simone Reyze on 04-07-2025 Bacteria identified Cx Nom (U) Positive Abnormal [facility] Bacteria identified Cx Nom (U) Streptococcus agalactiae (B) Abnormal [facility] Urine protein measurement (m ass/volume)Ordered By: Enid Reyez on 04-07-2025 Protein (U) [Mass/Vol] 13.1 mg/dL High 0.0-12.0 [facility] Urine protein/creatinine mas s ratioOrdered By: Enid Reyez on 04-07-2025 Protein/Creatinine (U) [Mass ratio] 118 mg/g CRE 0-200 [facility] White blood cell (WBC) count Ordered By: Enid Reyez on 04-07-2025 WBC (Bld) [#/Vol] 10.0 10*3/uL 4.4-11.0 [facility] ED Prov Noteon 01-19-2025 ED Prov Note [facility] EM[facility] ATTENDING NOTE: NAME: Gerald Miller CSN: [id number] 29 y.o. PCP: No, Physician History: Chief Complaint: Fever and Chills HPI: The history was obtained from the patient. Gerald is a 29 y.o. female who presents with a chief complaint of Fever and Chills. As per the patient her child was sick for the last 4 to 5 days and she started having chills body aches sore throat yesterday no shortness of breath no nausea no vomiting PMHx: History reviewed. No pertinent past medical history. PMSx: History reviewed. No pertinent surgical history. FAM. Hx: History reviewed. No pertinent family history. SOC. Hx: Social History Socioeconomic History Marital status: Tobacco Use Smoking status: Never Smokeless tobacco: Never Vaping Use Vaping status: Never Used Substance and Sexual Activity Alcohol use: Never Drug use: Never MEDs: Previous Medications Medication Sig ibuprofen (ADVIL,MOTRIN) 200 MG tablet Take 400 mg by mouth every 6 (six) hours as needed . NORETHINDRONE AC-ETH ESTRADIOL ORAL Take by mouth . ALL: Allergies Allergen Reactions Ragweed Unknown Runny,stuffy nose,headaches ROS: Review of Systems Positives and pertinent negatives as per HPI. All other systems were reviewed and are negative. Physical Exam: Patient Vitals for the past 24 hrs: BP Temp Temp src Pulse Resp SpO2 Height Weight 01/19/25 1020 (!) 161/104 98.6 degrees F (37 degrees C) Oral (!) 114 18 99 % 5' 3 77.1 kg (170 lb) Physical Exam Vitals reviewed. HENT: Right Ear: Tympanic membrane normal. Left Ear: Tympanic membrane normal. Nose: Rhinorrhea present. Mouth/Throat: Pharynx: Posterior oropharyngeal erythema present. Cardiovascular: Rate and Rhythm: Normal rate. Musculoskeletal: Cervical back: Neck supple. Pulmonary: Effort: Pulmonary effort is normal. Abdominal: Palpations: Abdomen is soft. Neurological: Mental Status: She is alert. Laboratory & Radiological Imaging (if done): Labs Reviewed POC INFLUENZA A/B - RALS - Normal POC INFLUENZA A/B No orders to display Procedures: Procedures ED Course / Medical Decision Making: I did personally review Gerald's past medical history, surgical history, social history, as well as family history (when relevant). In this case, I also oversaw the her drug management by reviewing her medication list, allergy list, as well as the medications that I prescribed during the ED course and/or recommended as an out-patient (including possible OTC medications such as acetaminophen, NSAIDs , etc). Her past medical problem list included: Active Ambulatory Problems Diagnosis Date Noted No Active Ambulatory Problems Resolved Ambulatory Problems Diagnosis Date Noted No Resolved Ambulatory Problems No Additional Past Medical History ED MEDICATIONS GIVEN: Medications - No data to display After reviewing the items above, I did not look at previous medical documentation, such as recent hospitalizations, office visits, and/or recent consultations with PCP/specialist. SDOH: Another factor that I considered in Gerald's care was her Social Determinants of Health (SDOH). During this ED encounter, she did NOT appear to have any significant issues identified. ED COURSE: My differential diagnosis Acute influenza acute viral syndrome I ordered a flu swab and the patient following which further disposition will be made Patient's flu swab is negative but her symptoms just started last night and her send positive tested positive for influenza so she was diagnosed with influenza reassured and discharged home . Clinical Impression: 1. Influenza Disposition: ED Disposition ED Disposition Discharge Condition Stable Comment Gerald Miller discharged to home/self care in stable condition. Leo Seymour MD, MD ED Attending Physician [facility] Leo Seymour MD 01/19/25 1114 AUTHENTICATED BY LEO SEYMOUR, ON 01/19/2025 11:14:[address] [facility] POC INFLUENZA A/B - RALSon 0 01-19-2025 POC INFLUENZA A (FSED) Not detected Normal Not Detecte d [facility] POC INFLUENZA B (FSED) Not detected Normal Not Detecte d [facility] CBC W Auto Differential pane l (Bld)on 05-16-2024 Basophils (Bld) [#/Vol] 0.05 x10*3/uL Normal 0.00-0.10 [facility] Comment on above: Performed By: #### 2 4323-8 #### FLORECITA SCHMITT ([id number]) [facility] ([facility]) [address] [place] [address] Basophils/100 WBC (Bld) 0.6 % Normal 0.0-2.0 [facility] Comment on above: Performed By: #### 2 4323-8 #### FLORECITA SCHMITT ([id number]) [facility] ([facility]) [address] [place] [address] Eosinophils (Bld) [#/Vol] 0.18 x10*3/uL Normal 0.00-0.70 [facility] Comment on above: Performed By: #### 2 4323-8 #### FLORECITA SCHMITT ([id number]) [facility] ([facility]) [address] [place] [address] Eosinophils/100 WBC (Bld) 2.1 % Normal 0.0-6.0 [facility] Comment on above: Performed By: #### 2 4323-8 #### FLORECITA SCHMITT ([id number]) [facility] ([facility]) [address] [place] [address] Erythrocyte distribution width (RBC) [Ratio] 12.0 % Normal 11.5-14.5 [facility] Comment on above: Performed By: #### 2 4323-8 #### FLORECITA SCHMITT ([id number]) [facility] ([facility]) [address] [place] [address] Hematocrit (Bld) [Volume fraction] 44.5 % Normal 36.0-46.0 [facility] Comment on above: Performed By: #### 2 4323-8 #### FLORECITA SCHMITT ([id number]) [facility] ([facility]) [address] [place] [address] Hemoglobin (Bld) [Mass/Vol] 14.5 g/dL Normal 12.0-16.0 [facility] Comment on above: Performed By: #### 2 432-8 #### FLORECITA SCHMITT ([id number]) [facility] ([facility]) [address] [place] [address] Immature granulocytes (Bld) [#/Vol] 0.02 x10*3/uL Normal 0.00-0.70 [facility] Comment on above: Performed By: #### 2 4323-8 #### FLORECITA SCHMITT ([id number]) [facility] ([facility]) [address] [place] [address] Immature granulocytes/100 WBC (Bld) 0.2 % Normal 0.0-0.9 [facility] Comment on above: Result Comment: [place] ture Granulocyte Count (IG) includes promyelocytes, myelocytes and metamyelocytes but does not include bands. Percent differential counts (%) should be interpreted in the context of the absolute cell counts (cells/UL). Performed By: #### 2 4323-8 #### FLORECITA SCHMITT ([id number]) [facility] ([facility]) [address] [place] [address] 16156 Lymphocytes (Bld) [#/Vol] 2.11 x10*3/uL Normal 1.20-4.80 [facility] Comment on above: Performed By: #### 2 432-8 #### FLORECITA SCHMITT ([id number]) [facility] ([facility]) [address] [place] [address] 40862 Lymphocytes/100 WBC (Bld) 24.7 % Normal 13.0-44.0 [facility] Comment on above: Performed By: #### 2 432-8 #### FLORECITA SCHMITT ([id number]) [facility] ([facility]) [address] [place] [address] 79153 MCH (RBC) [Entitic mass] 28.2 pg Normal 26.0-34.0 [facility] Comment on above: Performed By: #### 2 432-8 #### FLORECITA SCHMITT ([id number]) [facility] ([facility]) [address] [place] [address] MCHC (RBC) [Mass/Vol] 32.6 g/dL Normal 32.0-36.0 [facility] Comment on above: Performed By: #### 2 4323-8 #### FLORECITA SCHMITT ([id number]) [facility] ([facility]) [address] [place] [address] 34588 MCV (RBC) [Entitic vol] 87 fL Normal 80-100 [facility] Comment on above: Performed By: #### 2 4323-8 #### FLORECITA SCHMITT ([id number]) [facility] ([facility]) [address] [place] [address] 13009 Monocytes (Bld) [#/Vol] 0.60 x10*3/uL Normal 0.10-1.00 [facility] Comment on above: Performed By: #### 2 432-8 #### FLORECITA SCHMITT ([id number]) [facility] ([facility]) [address] [place] [address] Monocytes/100 WBC (Bld) 7.0 % Normal 2.0-10.0 [facility] Comment on above: Performed By: #### 2 4323-8 #### FLORECITA SCHMITT ([id number]) [facility] ([facility]) [address] [place] [address] Neutrophils (Bld) [#/Vol] 5.57 x10*3/uL Normal 1.20-7.70 [facility] Comment on above: Result Comment: Perc ent differential counts (%) should be interpreted in the context of the absolute cell counts (cells/uL). Performed By: #### 2 432-8 #### FLORECITA SCHMITT ([id number]) [facility] ([facility]) [address] [place] [address] 91484 Neutrophils/100 WBC (Bld) 65.4 % Normal 40.0-80.0 [facility] Comment on above: Performed By: #### 2 432-8 #### FLORECITA SCHMITT ([id number]) [facility] ([facility]) [address] [place] [address] 29241 Nucleated RBC/100 WBC (Bld) [Ratio] 0.0 /100 WBCs Normal 0.0-0.0 [facility] Comment on above: Performed By: #### 2 4323-8 #### FLORECITA SCHMITT ([id number]) [facility] ([facility]) [address] [place] [address] 97988 Platelets (Bld) [#/Vol] 229 x10*3/uL Normal 150-450 [facility] Comment on above: Performed By: #### 2 4323-8 #### FLORECITA SCHMITT ([id number]) [facility] ([facility]) [address] [place] [address] 76378 RBC (Bld) [#/Vol] 5.14 x10*6/uL Normal 4.00-5.20 [facility] Comment on above: Performed By: #### 2 432-8 #### FLORECITA SCHMITT ([id number]) [facility] ([facility]) [address] [place] [address] 11209 WBC (Bld) [#/Vol] 8.5 x10*3/uL Normal 4.4-11.3 [facility] Comment on above: Performed By: #### 2 4323-8 #### FLORECITA SCHMITT ([id number]) [facility] ([facility]) [address] [place] [address] Calcidiolon 05-16-2024 25-hydroxyvitamin D3 [Mass/Vol] 20 ng/mL Low 30-100 [facility] Comment on above: Order Comment: Defic iency: < 20 ng/mlInsufficiency: 20-29 ng/mlSufficiency: 30-100 ng/mlThis assay accurately quantifies the sum of Vitamin D3, 25-Hydroxy and Vitamin D2,25-Hydroxy. Performed By: #### 2 4323-8 #### FLORECITA SCHMITT ([id number]) [facility] ([facility]) [address] [place] [address] Cobalaminson 05-16-2024 Cobalamin (Vitamin B12) [Mass/Vol] 308 pg/mL Normal 211-911 [facility] Comment on above: Performed By: #### 2 4323-8 #### FLORECITA SCHMITT ([id number]) [facility] ([facility]) [address] [place], [place] [id number] Comprehensive metabolic 2000 panelon 05-16-2024 Albumin BCP dye [Mass/Vol] 5.0 g/dL Normal 3.4-5.0 [facility] Comment on above: Performed By: #### 2 4323-8 #### FLORECITA SCHMITT ([id number]) [facility] ([facility]) [address] [place] [address] 53102 ALP [Catalytic activity/Vol] 91 U/L Normal 33-110 [facility] Comment on above: Performed By: #### 2 4323-8 #### FLORECITA SCHMITT ([id number]) [facility] ([facility]) [address] [place] [address] 24555 ALT With P-5'-P [Catalytic activity/Vol] 16 U/L Normal 7-45 [facility] Comment on above: Result Comment: Fabi ents treated with Sulfasalazine may generate falsely decreased results for ALT. Performed By: #### 2 4323-8 #### FLORECITA SCHMITT ([id number]) [facility] ([facility]) [address] [place] [address] Anion gap [Moles/Vol] 12 mmol/L Normal 10-20 [facility] Comment on above: Performed By: #### 2 4323-8 #### FLORECITA SCHMITT ([id number]) [facility] ([facility]) [address] [place] [address] AST With P-5'-P [Catalytic activity/Vol] 20 U/L Normal 9-39 [facility] Comment on above: Performed By: #### 2 4322-8 #### FLORECITA SCHMITT ([id number]) [facility] ([facility]) [address] [place] [address] 44643 Bilirubin [Mass/Vol] 0.3 mg/dL Normal 0.0-1.2 [facility] Comment on above: Performed By: #### 2 432-8 #### FLORECITA SCHMITT ([id number]) [facility] ([facility]) [address] [place] [address] 81014 Calcium [Mass/Vol] 9.5 mg/dL Normal 8.6-10.3 [facility] Comment on above: Performed By: #### 2 4323-8 #### FLORECITA SCHMITT ([id number]) [facility] ([facility]) [address] [place] [address] 50300 Chloride [Moles/Vol] 103 mmol/L Normal 98-107 [facility] Comment on above: Performed By: #### 2 4323-8 #### FLORECITA SCHMITT ([id number]) [facility] ([facility]) [address] [place] [address] 84539 CO2 [Moles/Vol] 26 mmol/L Normal 21-32 [facility] Comment on above: Performed By: #### 2 4323-8 #### FLORECITA SCHMITT ([id number]) [facility] ([facility]) [facility] [place] [address] Creatinine [Mass/Vol] 0.68 mg/dL Normal 0.50-1.05 [facility] Comment on above: Performed By: #### 2 4323-8 #### FLORECITA SCHMITT ([id number]) [facility] ([facility]) [address] [place] [address] 43230 GFR/1.73 sq M.predicted MDRD (S/P/Bld) [Vol rate/Area] mL/min/{1.73_m2} Normal >60 [facility] Comment on above: Result Comment: Calc ulations of estimated GFR are performed using the 2020 CKD-EPI Study Refit equation without the race variable for the IDMS-Traceable creatinine methods. https://jasn.asnjournals.org/content/early//ASN.2020 424284 Performed By: #### 2 4323-8 #### FLORECITA SCHMITT ([id number]) [facility] ([facility]) [address] [place] [address] 44941 Glucose [Mass/Vol] 93 mg/dL Normal 74-99 [facility] Comment on above: Performed By: #### 2 4323-8 #### FLORECITA SCHMITT ([id number]) [facility] ([facility]) [address] [place] [address] 77018 Potassium [Moles/Vol] 4.3 mmol/L Normal 3.5-5.3 [facility] Comment on above: Performed By: #### 2 4323-8 #### FLORECITA SCHMITT ([id number]) [facility] ([facility]) [address] [place] [address] 21465 Protein [Mass/Vol] 7.9 g/dL Normal 6.4-8.2 [facility] Comment on above: Performed By: #### 2 4323-8 #### FLORECITA SCHMITT ([id number]) [facility] ([facility]) [address] [place] [address] 35599 Sodium [Moles/Vol] 137 mmol/L Normal 136-145 [facility] Comment on above: Performed By: #### 2 4323-8 #### FLORECITA SCHMITT ([id number]) [facility] ([facility]) [address] [place] [address] 48600 Urea nitrogen [Mass/Vol] 11 mg/dL Normal 6-23 [facility] Comment on above: Performed By: #### 2 4323-8 #### FLORECITA SCHMITT ([id number]) [facility] ([facility]) [address] [place] [address] 76989 Ferritinon 05-16-2024 Ferritin [Mass/Vol] 127 ng/mL Normal 8-150 [facility] Comment on above: Performed By: #### 2 432-8 #### FLORECITA SCHMITT ([id number]) [facility] ([facility]) [address] [place] [address] 23046 Folateon 05-16-2024 Folate [Mass/Vol] ng/mL Normal >5.0 [facility] Comment on above: Order Comment: Low < 3.4Borderline 3.4-5.0Normal >5.0Patients receiving more than 5 mg/day of biotin may have interference in test results. A sample should be taken no sooner than eight hours after previous dose. Contact the testing laboratory for additional information. Performed By: #### 2 4323-8 #### FLORECITA SCHMITT ([id number]) [facility] ([facility]) [address] [place] [address] 61834 Iron and Iron binding capaci ty panelon 05-16-2024 Iron [Mass/Vol] 51 ug/dL Normal 35-150 [facility] Comment on above: Performed By: #### 2 4323-8 #### FLORECITA SCHMITT ([id number]) [facility] ([facility]) [address] [place] [address] 99201 Iron binding capacity [Mass/Vol] 358 ug/dL Normal 240-445 [facility] Comment on above: Performed By: #### 2 4323-8 #### FLORECITA SCHMITT ([id number]) [facility] ([facility]) [address] [place] [address] 23884 Iron binding capacity.unsaturated [Mass/Vol] 307 ug/dL Normal 110-370 [facility] Comment on above: Performed By: #### 2 4323-8 #### FLORECITA SCHMITT ([id number]) [facility] ([facility]) [address] [place] [address] 48729 Iron saturation [Mass fraction] 14 % Low 25-45 [facility] Comment on above: Performed By: #### 2 4323-8 #### FLORECITA SCHMITT ([id number]) [facility] ([facility]) [address] [place] [address] 53219 Parathyrin.intacton 05-16-20 24 Parathyrin.intact [Mass/Vol] 82.0 pg/mL Normal 18.5-88.0 [facility] Comment on above: Performed By: #### 2 4323-8 #### FLORECITA SCHMITT ([id number]) [facility] ([facility]) [address] [place] [address] TSH WITH REFLEX TO FREE T4 I F ABNORMALon 05-16-2024 TSH Qn 1.70 m[IU]/L Normal 0.44-3.98 [facility] Comment on above: Order Comment: TSH t esting is performed using different testing methodology at [facility] than at other [facility]. Direct result comparisons should only be made within the same method. Performed By: #### 2 4323-8 #### FLORECITA SCHMITT ([id number]) [facility] ([facility]) [address] [place] [address] 71159 CBC W Auto Differential pane l (Bld)on 09-21-2023 Basophils (Bld) [#/Vol] 0.03 x10*3/uL Normal 0.00-0.10 [facility] Comment on above: Performed By: #### 5 7021-8 #### FLORECITA SCMHITT ([id number]) [facility] ([facility]) [address] [place] [address] 78539 Basophils/100 WBC (Bld) 0.5 % Normal 0.0-2.0 [facility] Comment on above: Performed By: #### 5 7021-8 #### FLORECITA SCHMITT ([id number]) [facility] ([facility]) [address] [place] [address] 83565 Eosinophils (Bld) [#/Vol] 0.24 x10*3/uL Normal 0.00-0.70 [facility] Comment on above: Performed By: #### 5 7021-8 #### FLORECITA SCHMITT ([id number]) [facility] ([facility]) [address] [place] [address] 32638 Eosinophils/100 WBC (Bld) 3.6 % Normal 0.0-6.0 [facility] Comment on above: Performed By: #### 7021-8 #### FLORECITA SCHMITT ([id number]) [facility] ([facility]) [address] [place] [address] 06035 Erythrocyte distribution width (RBC) [Ratio] 12.9 % Normal 11.5-14.5 [facility] Comment on above: Performed By: #### 5 7021-8 #### FLORECITA SCHMITT ([id number]) [facility] ([facility]) [address] [place] [address] 17511 Hematocrit (Bld) [Volume fraction] 42.3 % Normal 36.0-46.0 [facility] Comment on above: Performed By: #### 5 7021-8 #### FLORECITA SCHMITT ([id number]) [facility] ([facility]) [address] [place] [address] 67794 Hemoglobin (Bld) [Mass/Vol] 13.8 g/dL Normal 12.0-16.0 [facility] Comment on above: Performed By: #### 5 7021-8 #### FLORECITA SCHMITT ([id number]) [facility] ([facility]) [address] [place] [address] 52744 Immature granulocytes (Bld) [#/Vol] 0.02 x10*3/uL Normal 0.00-0.70 [facility] Comment on above: Performed By: #### 5 7021-8 #### FLORECITA SCHMITT ([id number]) [facility] ([facility]) [address] [place] [address] 02234 Immature granulocytes/100 WBC (Bld) 0.3 % Normal 0.0-0.9 [facility] Comment on above: Result Comment: [place]asta ture Granulocyte Count (IG) includes promyelocytes, myelocytes and metamyelocytes but does not include bands. Percent differential counts (%) should be interpreted in the context of the absolute cell counts (cells/UL). Performed By: #### 5 7021-8 #### FLORECITA SCHMITT ([id number]) [facility] ([facility]) [address] [place] [address] Lymphocytes (Bld) [#/Vol] 1.81 x10*3/uL Normal 1.20-4.80 [facility] Comment on above: Performed By: #### 5 7021-8 #### FLORECITA SCHMITT ([id number]) [facility] ([facility]) [address] [place] [address] Lymphocytes/100 WBC (Bld) 27.4 % Normal 13.0-44.0 [facility] Comment on above: Performed By: #### 5 7021-8 #### FLORECITA SCHMITT ([id number]) [facility] ([facility]) [address] [place] [address] 81405 MCH (RBC) [Entitic mass] 28.0 pg Normal 26.0-34.0 [facility] Comment on above: Performed By: #### 5 7021-8 #### FLORECITA SCHMITT ([id number]) [facility] ([facility]) [address] [place] [address] 50161 MCHC (RBC) [Mass/Vol] 32.6 g/dL Normal 32.0-36.0 [facility] Comment on above: Performed By: #### 5 7021-8 #### FLORECITA SCHMITT ([id number]) [facility] ([facility]) [address] [place] [address] 44207 MCV (RBC) [Entitic vol] 86 fL Normal 80-100 [facility] Comment on above: Performed By: #### 5 7021-8 #### FLORECITA SCHMITT ([id number]) [facility] ([facility]) [address] [place] [address] 90249 Monocytes (Bld) [#/Vol] 0.72 x10*3/uL Normal 0.10-1.00 [facility] Comment on above: Performed By: #### 5 7021-8 #### FLORECITA SCHMITT ([id number]) [facility] ([facility]) [address] [place] [address] 49781 Monocytes/100 WBC (Bld) 10.9 % Normal 2.0-10.0 [facility] Comment on above: Performed By: #### 5 7021-8 #### FLORECITA SCHMITT ([id number]) [facility] ([facility]) [address] [place] [address] 22988 Neutrophils (Bld) [#/Vol] 3.79 x10*3/uL Normal 1.20-7.70 [facility] Comment on above: Result Comment: Perc ent differential counts (%) should be interpreted in the context of the absolute cell counts (cells/uL). Performed By: #### 5 7021-8 #### FLORECITA SCHMITT ([id number]) [facility] ([facility]) [address] [place] [address] 68577 Neutrophils/100 WBC (Bld) 57.3 % Normal 40.0-80.0 [facility] Comment on above: Performed By: #### 5 7021-8 #### FLORECITA SCHMITT ([id number]) [facility] ([facility]) [address] [place] [address] 41241 Nucleated RBC/100 WBC (Bld) [Ratio] 0.0 /100 WBCs Normal 0.0-0.0 [facility] Comment on above: Performed By: #### 5 7021-8 #### FLORECITA SCHMITT ([id number]) [facility] ([facility]) [address] [place] [address] 54098 Platelets (Bld) [#/Vol] 191 x10*3/uL Normal 150-450 [facility] Comment on above: Performed By: #### 5 7021-8 #### FLORECITA SCHMITT ([id number]) [facility] ([facility]) [address] [place] [address] 87674 RBC (Bld) [#/Vol] 4.93 x10*6/uL Normal 4.00-5.20 [facility] Comment on above: Performed By: #### 5 7021-8 #### FLORECITA SCHMITT ([id number]) [facility] ([facility]) [address] [place] [address] 21801 WBC (Bld) [#/Vol] 6.6 x10*3/uL Normal 4.4-11.3 [facility] Comment on above: Performed By: #### 5 7021-8 #### FLORECITA SCHMITT ([id number]) [facility] ([facility]) [address] [place] [address] Calcidiolon 09-21-2023 25-hydroxyvitamin D3 [Mass/Vol] 21 ng/mL Low 30-100 [facility] Comment on above: Order Comment: Defic iency: < 20 ng/ml Insufficiency: 20-29 ng/ml Sufficiency: 30-100 ng/ml This assay accurately quantifies the sum of Vitamin D3, 25-Hydroxy and Vitamin D2,25-Hydroxy. Performed By: #### 1 989-3 #### FLORECITA SCHMITT ([id number]) [facility] ([facility]) [address] [place], [place] [address] Cobalaminson 09-21-2023 Cobalamin (Vitamin B12) [Mass/Vol] 349 pg/mL Normal 211-911 [facility] Comment on above: Performed By: #### 2 132-9 #### FLORECITA SCHMITT ([id number]) [facility] ([facility]) [address] [place], [place] [address] Comprehensive metabolic 2000 panelon 09-21-2023 Albumin BCP dye [Mass/Vol] 4.9 g/dL Normal 3.4-5.0 [facility] Comment on above: Performed By: #### 2 4323-8 #### FLORECITA SCHMITT ([id number]) [facility] ([facility]) [address] [place] [address] 98849 ALP [Catalytic activity/Vol] 110 U/L Normal 33-110 [facility] Comment on above: Performed By: #### 2 4323-8 #### FLORECITA SCHMITT ([id number]) [facility] ([facility]) [address] [place] [address] ALT With P-5'-P [Catalytic activity/Vol] 28 U/L Normal 7-45 [facility] Comment on above: Result Comment: Fabi ents treated with Sulfasalazine may generate falsely decreased results for ALT. Performed By: #### 2 4323-8 #### FLORECITA SCHMITT ([id number]) [facility] ([facility]) [address] [place] [address] Anion gap [Moles/Vol] 12 mmol/L Normal 10-20 [facility] Comment on above: Performed By: #### 2 4322-8 #### FLORECITA SCHMITT ([id number]) [facility] ([facility]) [address] [place] [address] AST With P-5'-P [Catalytic activity/Vol] 25 U/L Normal 9-39 [facility] Comment on above: Performed By: #### 2 4322-8 #### FLORECITA SCHMITT ([id number]) [facility] ([facility]) [address] [place] [address] Bilirubin [Mass/Vol] 0.4 mg/dL Normal 0.0-1.2 [facility] Comment on above: Performed By: #### 2 432-8 #### FLORECITA SCHMITT ([id number]) [facility] ([facility]) [address] [place] [address] Calcium [Mass/Vol] 9.4 mg/dL Normal 8.6-10.3 [facility] Comment on above: Performed By: #### 2 3-8 #### FLORECITA SCHMITT ([id number]) [facility] ([facility]) [facility] [place] [address] Chloride [Moles/Vol] 105 mmol/L Normal 98-107 [facility] Comment on above: Performed By: #### 2 4323-8 #### FLORECITA SCHMITT ([id number]) [facility] ([facility]) [address] [place] [address] 45135 CO2 [Moles/Vol] 27 mmol/L Normal 21-32 [facility] Comment on above: Performed By: #### 2 4323-8 #### FLORECITA SCHMITT ([id number]) [facility] ([facility]) [address] [place] [address] 02099 Creatinine [Mass/Vol] 0.68 mg/dL Normal 0.50-1.05 [facility] Comment on above: Performed By: #### 2 4323-8 #### FLORECITA SCHMITT ([id number]) [facility] ([facility]) [address] [place] [address] 96671 GFR/1.73 sq M.predicted MDRD (S/P/Bld) [Vol rate/Area] mL/min/{1.73_m2} Normal >60 [facility] Comment on above: Result Comment: Calc ulations of estimated GFR are performed using the 2020 CKD-EPI Study Refit equation without the race variable for the IDMS-Traceable creatinine methods. https://jasn.asnjournals.org/content/early//ASN.2020 824036 Performed By: #### 2 4323-8 #### FLORECITA SCHMITT ([id number]) [facility] ([facility]) [address] [place] [address] 85628 Glucose [Mass/Vol] 89 mg/dL Normal 74-99 [facility] Comment on above: Performed By: #### 2 4323-8 #### FLORECITA SCHMITT ([id number]) [facility] ([facility]) [address] [place] [address] 46629 Potassium [Moles/Vol] 4.6 mmol/L Normal 3.5-5.3 [facility] Comment on above: Performed By: #### 2 4323-8 #### FLORECITA SCHMITT ([id number]) [facility] ([facility]) [address] [place] [address] 29382 Protein [Mass/Vol] 7.5 g/dL Normal 6.4-8.2 [facility] Comment on above: Performed By: #### 2 4323-8 #### FLORECITA SCHMITT ([id number]) [facility] ([facility]) [address] [place] [address] 55132 Sodium [Moles/Vol] 139 mmol/L Normal 136-145 [facility] Comment on above: Performed By: #### 2 4323-8 #### FLORECITA SCHMITT ([id number]) [facility] ([facility]) [address] [place] [address] 93639 Urea nitrogen [Mass/Vol] 16 mg/dL Normal 6-23 [facility] Comment on above: Performed By: #### 2 4323-8 #### FLORECITA SCHMITT ([id number]) [facility] ([facility]) [address] [place] [address] Ferritinon 09-21-2023 Ferritin [Mass/Vol] 121 ng/mL Normal 8-150 [facility] Comment on above: Performed By: #### 2 276-4 #### FLORECITA SCHMITT ([id number]) [facility] ([facility]) [address] [place] [address] Folateon 09-21-2023 Folate [Mass/Vol] ng/mL Normal >5.0 [facility] Comment on above: Order Comment: Low < 3.4 Borderline 3.4-5.0 Normal >5.0 Patients receiving more than 5 mg/day of biotin may have interference in test results. A sample should be taken no sooner than eight hours after previous dose. Contact the testing laboratory for additional information. Performed By: #### 2 284-8 #### FLORECITA SCHMITT ([id number]) [facility] ([facility]) [address] [place] [address] HbA1c (Bld) [Mass fraction]o n 09-21-2023 Average glucose Estimated from glycated hemoglobin (Bld) [Mass/Vol] 105 mg/dL Normal Not Established [facility] Comment on above: Order Comment: Diagn osis of Diabetes-Adults Non-Diabetic: < or = 5.6% Increased risk for developing diabetes: 5.7-6.4% Diagnostic of diabetes: > or = 6.5% Monitoring of Diabetes Age (y)....................... Therapeutic Goal (%) Adults: >18.........................<7.0 Pediatrics: 13-18...................<7.5 Pediatrics: 7-12....................<8.0 Pediatrics: 0-6..................... 7.5-8.5 [place] [employer]. Diabetes Care 33(S1)Nov 2009 Performed By: #Bakari 4 [id number] #### FLORECITA SCHMITT ([id number]) [facility] ([facility]) [address] [place] [address] Hemoglobin A1c/Hemoglobin.to krystina 09-21-2023 HbA1c (Bld) [Mass fraction] 5.3 % Normal see below [facility] Comment on above: Order Comment: Diagn osis of Diabetes-Adults Non-Diabetic: < or = 5.6% Increased risk for developing diabetes: 5.7-6.4% Diagnostic of diabetes: > or = 6.5% Monitoring of Diabetes Age (y)....................... Therapeutic Goal (%) Adults: >18.........................<7.0 Pediatrics: 13-18...................<7.5 Pediatrics: 7-12....................<8.0 Pediatrics: 0-6..................... 7.5-8.5 [place] [employer]. Diabetes Care 33(S1), Nov 2009 Performed By: #### 4 [id number] #### FLORECITA SCHMITT ([id number]) [facility] ([facility]) [facility] [place] [address] Iron and Iron binding capaci ty panelon 09-21-2023 Iron [Mass/Vol] 60 ug/dL Normal 35-150 [facility] Comment on above: Performed By: #### 5 [id number] #### FLORECITA SCHMITT ([id number]) [facility] ([facility]) [address] [place] [address] Iron binding capacity [Mass/Vol] 331 ug/dL Normal 240-445 [facility] Comment on above: Performed By: #### 5 [id number] #### FLORECITA SCHMITT ([id number]) [facility] ([facility]) [address] [place] [address] Iron binding capacity.unsaturated [Mass/Vol] 271 ug/dL Normal 110-370 [facility] Comment on above: Performed By: #### 5 0190-8 #### FLORECITA SCHMITT ([id number]) [facility] ([facility]) [address] [place] [address] Iron saturation [Mass fraction] 18 % Low 25-45 [facility] Comment on above: Performed By: #### 5 0190-8 #### FLORECITA SCHMITT ([id number]) [facility] ([facility]) [facility] [place] [address] Lipid 1996 panelon 3 Cholesterol [Mass/Vol] 213 mg/dL High 0-199 Un [facility] Comment on above: Result Comment: Age Desirable Borderline High High 0-19 Y 0 - 169 170 - 199 >/= 200 20-24 Y 0 - 189 190 - 224 >/= 225 >24 Y 0 - 199 200 - 239 >/= 240 All ranges are based on fasting samples. Specific therapeutic targets will vary based on patient-specific cardiac risk. Pediatric guidelines reference:Pediatrics 2011, 128(S5).Adult guidelines reference: NCEP ATPIII Guidelines,TERESA 2001, 258:2486-97 Venipuncture immediately after or during the administration of Metamizole may lead to falsely low results. Testing should be performed immediately prior to Metamizole dosing. Performed By: #### 2 4331-1 #### FLORECITA SCHMITT ([id number]) [facility] ([facility]) [address] [place] [address] Cholesterol in HDL [Mass/Vol] 35.0 mg/dL Normal [facility] Comment on above: Result Comment: Age Very Low Low Normal High 0-19 Y < 35 < 40 40-45 ---- 20-24 Y ---- < 40 >45 ---- >24 Y ---- < 40 40-60 >60 Performed By: #### 2 4331-1 #### FLORECITA SCHMITT ([id number]) [facility] ([facility]) [address] [place] [address] Cholesterol in LDL [Mass/Vol] 137 mg/dL High <=119 [facility] Comment on above: Result Comment: Near Borderline AGE Desirable Optimal High High Very High 0-19 Y 0 - 109 --- 110-129 >/= 130 ---- 20-24 Y 0 - 119 --- 120-159 >/= 160 ---- >24 Y 0 - 99 100-129 130-159 160-189 >/=190 Performed By: #### 2 4331-1 #### FLORECITA SCHMITT ([id number]) [facility] ([facility]) [address] [place] [address] Cholesterol in VLDL [Mass/Vol] 41 mg/dL High 0-40 [facility] Comment on above: Performed By: #### 2 4331-1 #### FLORECITA SCHMITT ([id number]) [facility] ([facility]) [address] [place] [address] CHOLESTEROL/HDL RATIO 6.1 Normal [facility] Comment on above: Result Comment: Ref Values Desirable < 3.4 High Risk > 5.0 Performed By: #### 2 4331-1 #### FLORECITA SCHMITT ([id number]) [facility] ([facility]) [address] [place] [address] NON HDL CHOLESTEROL 178 mg/dL High 0-149 [facility] Comment on above: Result Comment: Age Desirable Borderline High High Very High 0-19 Y 0 - 119 120 - 144 >/= 145 >/= 160 20-24 Y 0 - 149 150 - 189 >/= 190 ---- >24 Y 30 mg/dL above LDL Cholesterol goal Performed By: #### 2 4331-1 #### FLORECITA SCHMITT ([id number]) [facility] ([facility]) [address] [place] [address] Triglyceride [Mass/Vol] 204 mg/dL High 0-149 [facility] Comment on above: Result Comment: Age Desirable Borderline High High Very High 0 D-90 D 19 - 174 ---- ---- ---- 91 D- 9 Y 0 - 74 75 - 99 >/= 100 ---- 10-19 Y 0 - 89 90 - 129 >/= 130 ---- 20-24 Y 0 - 114 115 - 149 >/= 150 ---- >24 Y 0 - 149 150 - 199 200- 499 >/= 500 Venipuncture immediately after or during the administration of Metamizole may lead to falsely low results. Testing should be performed immediately prior to Metamizole dosing. Performed By: #### 2 4331-1 #### FLORECITA SCHMITT ([id number]) [facility] ([facility]) [address] [place] [address] TSH WITH REFLEX TO FREE T4 I F ABNORMALon 09-21-2023 TSH Qn 1.42 m[IU]/L Normal 0.44-3.98 [facility] Comment on above: Order Comment: TSH t esting is performed using different testing methodology at [facility] than at other [facility]. Direct result comparisons should only be made within the same method. Performed By: #### T HYDS #### FLORECITA SCHMITT ([id number]) [facility] ([facility]) [address] [place] [address] ECG 12 Leadon 09-14-2023 NSR [facility] Work Phone: [facility] Work Phone: Basophil percentageOrdered B y: Angelia Colindres on 05-20-2023 Basophils (Bld) [#/Vol] 14.5 10*3/uL 4.4-11.0 [facility] Blood erythrocytes count (nu mber/volume)Ordered By: Angelia Colindres on 05-20-2023 RBC (Bld) [#/Vol] 3.59 10*6/uL 4.2-5.4 [facility] Blood hemoglobin measurement (mass/volume)Ordered By: Angelia Colindres on 05-20-2023 Hemoglobin (Bld) [Mass/Vol] 10.5 g/dL 12.0-15.0 [facility] Blood platelet mean volumeOr dered By: Angelia Colindres on 05-20-2023 Platelet mean volume (Bld) [Entitic vol] 11.1 fL 6.2-12.0 [facility] Determination of erythrocyte mean corpuscular volume (MCV)Ordered By: Angelia Colindres on 05-20-2023 MCV (RBC) [Entitic vol] 92.8 fL 81-99 [facility] Hematocrit Auto (Bld) [Volum e fraction]Ordered By: Angelia Colindres on 05-20-2023 Hematocrit (Bld) [Volume fraction] 33.3 % 37-47 [facility] MCHC Auto (RBC) [Mass/Vol]Or dered By: Angelia Colindres on 05-20-2023 MCHC (RBC) [Mass/Vol] 31.5 g/dL 32-36 [facility] No Panel InformationOrdered By: Angelia Colindres on 05-20-2023 29.2 pg 27.0-32.0 [facility] 14.4 % 11.6-14.6 [facility] 48.2 fl 35.1-43.9 [facility] Platelets bldOrdered By: Manpreet Colindres on 05-20-2023 Platelets (Bld) [#/Vol] 145 10*3/uL 150-450 [facility] Absolute lymphocyte countOrd ered By: Angelia Colindres on 05-19-2023 Lymphocytes Auto (Unsp spec) [#/Vol] 1.73 10*3/uL 0.83-4.51 [facility] Basophil percentageOrdered B y: Angelia Colindres on 05-19-2023 Basophils (Bld) [#/Vol] 11.1 10*3/uL 2.0-7.7 [facility] Basophils/100 WBC (Bld) 78.9 % 47-70 [facility] Basophils/100 WBC (Bld) 1.1 % 0-5 [facility] Basophils/100 WBC (Bld) 0.2 % 0-1 [facility] Blood lymphocytes/100 leukoc ytesOrdered By: Angelia Colindres on 05-19-2023 Lymphocytes/100 WBC (Bld) 12.2 % 19-41 [facility] Blood monocytes/100 leukocyt esOrdered By: Angelia Colindres on 05-19-2023 Monocytes/100 WBC (Bld) 6.7 % 0-10 [facility] No Panel InformationOrdered By: Angelia Colindres on 05-19-2023 0.900 % 0.0-0.9 [facility] 0 % 0-5 [facility] Serum Treponema species anti body detectionOrdered By: Angelia Colindres on 05-19-2023 Treponema sp Ab Ql (S) Non-Reactive [facility] No Panel Informationon 05-15 Negative [facility] No Panel InformationOrdered By: Flores Lyons on 05-11-2023 Group B Beta Streptococcus is not isolated. [facility] No Panel Informationon 05-11 Negative [facility] Absolute lymphocyte countOrd ered By: Enid Reyez on 05-08-2023 Lymphocytes Auto (Unsp spec) [#/Vol] 1.44 10*3/uL 0.83-4.51 [facility] Basophil percentageOrdered B y: Enid Reyez on 05-08-2023 Basophil percentage 98 mg/dL 74-106 [facility] Basophil percentage 7.4 g/dL 6.4-8.2 [facility] Basophil percentage 0.20 mg/dL 0.20-1.00 [facility] Basophil percentage 138 mmol/L 136-145 [facility] Basophil percentage 3.9 mmol/L 3.5-5.1 [facility] Basophil percentage 108 mmol/L 98-107 [facility] Basophils (Bld) [#/Vol] 14.9 10*3/uL 4.4-11.0 [facility] Basophils (Bld) [#/Vol] 12.2 10*3/uL 2.0-7.7 [facility] Basophils/100 WBC (Bld) 0.2 % 0-1 [facility] Basophils/100 WBC (Bld) 81.8 % 47-70 [facility] Basophils/100 WBC (Bld) 0.8 % 0-5 [facility] Bilirubin [Mass/Vol] 0.20 mg/dL 0.20-1.00 [facility] Comment on above: For patients on eltr ombopag therapy, use of [employer] [place] TBIL is not recommended. Chloride [Moles/Vol] 108 mmol/L 98-107 [facility] Eosinophils/100 WBC (Bld) 0.8 % 0-5 [facility] Glucose [Mass/Vol] 98 mg/dL 74-106 [facility] Neutrophils (Bld) [#/Vol] 12.2 10*3/uL 2.0-7.7 [facility] Neutrophils/100 WBC (Bld) 81.8 % 47-70 [facility] Potassium [Moles/Vol] 3.9 mmol/L 3.5-5.1 [facility] Protein [Mass/Vol] 7.4 g/dL 6.4-8.2 [facility] Sodium [Moles/Vol] 138 mmol/L 136-145 [facility] WBC (Bld) [#/Vol] 14.9 10*3/uL 4.4-11.0 [facility] Blood erythrocytes count (nu mber/volume)Ordered By: Enid Reyez on 05-08-2023 RBC (Bld) [#/Vol] 3.98 10*6/uL 4.2-5.4 [facility] Blood hemoglobin measurement (mass/volume)Ordered By: Enid Reyez on 05-08-2023 Hemoglobin (Bld) [Mass/Vol] 11.8 g/dL 12.0-15.0 [facility] Blood lymphocytes/100 leukoc ytesOrdered By: Enid Reyez on 05-08-2023 Lymphocytes/100 WBC (Bld) 9.7 % 19-41 [facility] Blood monocytes/100 leukocyt esOrdered By: Enid Reyez on 05-08-2023 Monocytes/100 WBC (Bld) 6.7 % 0-10 [facility] Blood platelet mean volumeOr dered By: Enid Reyez on 05-08-2023 Platelet mean volume (Bld) [Entitic vol] 10.6 fL 6.2-12.0 [facility] Determination of erythrocyte mean corpuscular volume (MCV)Ordered By: Enid Reyez on 05-08-2023 MCV (RBC) [Entitic vol] 89.4 fL 81-99 [facility] Hematocrit Auto (Bld) [Volum e fraction]Ordered By: Enid Reyez on 05-08-2023 Hematocrit (Bld) [Volume fraction] 35.6 % 37-47 [facility] - Chemistry and C hemistry - challengeOrdered By: Enid Reyez on 05-08-2023 ALP [Catalytic activity/Vol] 146 U/L 45-117 [facility] ALT [Catalytic activity/Vol] 21 U/L 13-56 [facility] CO2 [Moles/Vol] 23.0 mmol/L 21.0-32.0 [facility] Globulin (S) [Mass/Vol] 4.5 g/dL 2.2-4.2 [facility] Urea nitrogen/Creatinine [Mass ratio] 11.5 mg/mg 10-20 [facility] - Hematology and Cell countsOrdered By: Enid Reyez on 05-08-2023 Erythrocyte distribution width (RBC) [Entitic vol] 45.8 fL 35.1-43.9 [facility] Erythrocyte distribution width (RBC) [Ratio] 14.0 % 11.6-14.6 [facility] Immature granulocytes/100 WBC (Bld) 0.800 % 0.0-0.9 [facility] Comment on above: IG% - Immature Granu locytes (promyelocytes, myelocytes and metamyelocytes) > 1% indicates that a LEFT SHIFT is Present. MCH (RBC) [Entitic mass] 29.6 pg 27.0-32.0 [facility] Nucleated RBC/100 WBC (Bld) [Ratio] 0 % 0-5 [facility] MCHC Auto (RBC) [Mass/Vol]Or dered By: Enid Reyez on 05-08-2023 MCHC (RBC) [Mass/Vol] 33.1 g/dL 32-36 [facility] No Panel InformationOrdered By: Enid Reyez on 05-08-2023 Estimated GFR (MDRD) Amer 184 mL/min >60 [facility] Comment on above: GFR Calc Estimated GFR (MDRD) Non-Af Amer 152 mL/min >60 [facility] Comment on above: Non- GFR Calc 29.6 pg 27.0-32.0 [facility] 14.0 % 11.6-14.6 [facility] 45.8 fl 35.1-43.9 [facility] 0.800 % 0.0-0.9 [facility] 0 % 0-5 [facility] 152 mL/min >60 [facility] 184 mL/min >60 [facility] 11.5 RATIO 10-20 [facility] 4.5 g/dL 2.2-4.2 [facility] 146 U/L 45-117 [facility] 21 U/L 13-56 [facility] 23.0 mmol/L 21.0-32.0 [facility] Platelets bldOrdered By: Simone Reyez on 05-08-2023 Platelets (Bld) [#/Vol] 145 10*3/uL 150-450 [facility] Serum or plasma albumin nolan urement (mass/volume)Ordered By: Enid Reyez on 05-08-2023 Albumin [Mass/Vol] 2.9 g/dL 3.2-5.0 [facility] Serum or plasma albumin/glob ulin mass ratioOrdered By: Enid Reyez on 05-08-2023 Albumin/Globulin [Mass ratio] 0.6 {ratio} 0.9-2.4 [facility] Serum or plasma calcium nolan urement (mass/volume)Ordered By: Enid Reyez on 05-08-2023 Calcium [Mass/Vol] 9.5 mg/dL 8.5-10.1 [facility] Serum or plasma creatinine m easurement (mass/volume)Ordered By: Enid Reyez on 05-08-2023 Creatinine [Mass/Vol] 0.52 mg/dL 0.55-1.02 [facility] Comment on above: The validity of the calculated GFR & GFRAA in patients over 70 years has not been determined. Clinical correlation is essential. Serum or plasma urea nitroge n measurement (mass/volume)Ordered By: Enid Reyez on 05-08-2023 Urea nitrogen [Mass/Vol] 6 mg/dL 7-18 [facility] Thin prep Papanicolaou smear with manual screeningOrdered By: Enid Reyez on 05-08-2023 Thin prep Papanicolaou smear with manual screening 19 U/L 15-37 [facility] Thin prep Papanicolaou smear with manual screening 7 5-15 [facility] Urine creatinine measurement (mass/volume)Ordered By: Enid Reyez on 05-08-2023 Creatinine (U) [Mass/Vol] 31.00 mg/dL NO RANGE EST. [facility] Urine protein measurement (m ass/volume)Ordered By: Enid Reyez on 05-08-2023 Protein (U) [Mass/Vol] 7.3 mg/dL 0.0-11.8 [facility] Urine protein/creatinine mas s ratioOrdered By: Enid Reyez on 05-08-2023 Protein/Creatinine (U) [Mass ratio] 235 mg/g CRE 0-200 [facility] Absolute lymphocyte countOrd ered By: Dr. Lyons on 05-05-2023 Lymphocytes Auto (Unsp spec) [#/Vol] 1.63 10*3/uL 0.83-4.51 [facility] Basophil percentageOrdered B y: Flores Lyons on 05-05-2023 Basophils (Bld) [#/Vol] 15.8 10*3/uL 4.4-11.0 [facility] Basophils (Bld) [#/Vol] 12.4 10*3/uL 2.0-7.7 [facility] Basophils/100 WBC (Bld) 80.5 % 47-70 [facility] Basophils/100 WBC (Bld) 0.5 % 0-5 [facility] Basophil percentageOrdered B y: Dr. Lyons on 05-05-2023 WBC (Bld) [#/Vol] 15.8 10*3/uL 4.4-11.0 [facility] Basophils/100 WBC (Bld) 0.2 % 0-1 [facility] Eosinophils/100 WBC (Bld) 0.5 % 0-5 [facility] Neutrophils (Bld) [#/Vol] 12.4 10*3/uL 2.0-7.7 [facility] Neutrophils/100 WBC (Bld) 80.5 % 47-70 [facility] Blood erythrocytes count (nu mber/volume)Ordered By: Dr. Lyons on 05-05-2023 RBC (Bld) [#/Vol] 4.19 10*6/uL 4.2-5.4 [facility] Blood hemoglobin measurement (mass/volume)Ordered By: Dr. Lyons on 05-05-2023 Hemoglobin (Bld) [Mass/Vol] 12.4 g/dL 12.0-15.0 [facility] Blood lymphocytes/100 leukoc ytesOrdered By: Dr. Lyons on 05-05-2023 Lymphocytes/100 WBC (Bld) 10.6 % 19-41 [facility] Blood monocytes/100 leukocyt esOrdered By: Dr. Lyons on 05-05-2023 Monocytes/100 WBC (Bld) 7.6 % 0-10 [facility] Blood platelet mean volumeOr dered By: Dr. Lyons on 05-05-2023 Platelet mean volume (Bld) [Entitic vol] 10.4 fL 6.2-12.0 [facility] Determination of erythrocyte mean corpuscular volume (MCV)Ordered By: Dr. Lyons on 05-05-2023 MCV (RBC) [Entitic vol] 87.8 fL 81-99 [facility] Hematocrit Auto (Bld) [Volum e fraction]Ordered By: Dr. Lyons on 05-05-2023 Hematocrit (Bld) [Volume fraction] 36.8 % 37-47 [facility] INR in Blood by Coagulation assayOrdered By: Dr. Lyons on 05-05-2023 INR Coag (Bld) [Relative time] 1.0 {INR} [facility] - Chemistry and C hemistry - challengeon 05-05-2023 Glucose Ql (U) Negative [facility] - CoagulationOrde red By: Dr. Lyons on 05-05-2023 aPTT Coag (Bld) [Time] 27.1 s 24.1-36.2 [facility] PT Coag (PPP) [Time] 12.9 s 11.7-14.9 [facility] Laboratory - Hematology and Cell countsOrdered By: Dr. Lyons on 05-05-2023 Erythrocyte distribution width (RBC) [Entitic vol] 44.5 fL 35.1-43.9 [facility] Erythrocyte distribution width (RBC) [Ratio] 14.1 % 11.6-14.6 [facility] MCH (RBC) [Entitic mass] 29.6 pg 27.0-32.0 [facility] Immature granulocytes/100 WBC (Bld) 0.600 % 0.0-0.9 [facility] Comment on above: IG% - Immature Granu locytes (promyelocytes, myelocytes and metamyelocytes) > 1% indicates that a LEFT SHIFT is Present. Nucleated RBC/100 WBC (Bld) [Ratio] 0 % 0-5 [facility] Laboratory - Urinalysison Protein Ql (U) Negative [facility] MCHC Auto (RBC) [Mass/Vol]Or dered By: Dr. Lyons on 05-05-2023 MCHC (RBC) [Mass/Vol] 33.7 g/dL 32-36 [facility] No Panel InformationOrdered By: Flores Lyons on 05-05-2023 29.6 pg 27.0-32.0 [facility] 14.1 % 11.6-14.6 [facility] 44.5 fl 35.1-43.9 [facility] 12.9 SECONDS 11.7-14.9 [facility] 27.1 Seconds 24.1-36.2 [facility] 0.600 % 0.0-0.9 [facility] 0 % 0-5 [facility] No Panel Informationon 05-05 Negative [facility] Platelets bldOrdered By: Dr. Lyons on 05-05-2023 Platelets (Bld) [#/Vol] 143 10*3/uL 150-450 [facility] Serum Treponema species anti body detectionOrdered By: Dr. Lyons on 05-05-2023 Treponema sp Ab Ql (S) Non-Reactive [facility] Urine creatinine measurement (mass/volume)Ordered By: Dr. Lyons on 05-05-2023 Creatinine (U) [Mass/Vol] 34.70 mg/dL NO RANGE EST. [facility] Urine protein measurement (m ass/volume)Ordered By: Dr. Lyons on 05-05-2023 Protein (U) [Mass/Vol] 9.1 mg/dL 0.0-11.8 [facility] Urine protein/creatinine mas s ratioOrdered By: Dr. Lyons on 05-05-2023 Protein/Creatinine (U) [Mass ratio] 262 mg/g CRE 0-200 [facility] - Chemistry and C hemistry - challengeon 05-02-2023 Glucose Ql (U) Negative [facility] - Urinalysison Protein Ql (U) Negative [facility] No Panel InformationOrdered By: Dr. Lyons on 05-02-2023 Vaginal Amniotic Fluid Detection Negative Negative [facility] Comment on above: Amniotic fluid not p resent indicates No Rupture of FetalMembranes at time of specimen collection. No Panel InformationOrdered By: Flores Lyons on 05-02-2023 Negative Negative [facility] No Panel Informationon 05-02 Negative [facility] Amorphous sediment detection in urine sediment by light microscopyOrdered By: Laurence Erazo on 04-30-2023 Amorphous sediment LM Ql (Urine sed) 1+ PHOS [facility] Basophil percentageOrdered B y: Laurence Erazo on 04-30-2023 Basophil percentage 0 SEEN /hpf 0-5 [facility] Basophils (Bld) [#/Vol] 16.4 10*3/uL 4.4-11.0 [facility] WBC (Bld) [#/Vol] 16.4 10*3/uL 4.4-11.0 [facility] Bilirubin Test strip Ql (U)O rdered By: Laurence Erazo on 04-30-2023 Bilirubin Ql (U) Negative Negative [facility] Blood erythrocytes count (nu mber/volume)Ordered By: Laurence Erazo on 04-30-2023 RBC (Bld) [#/Vol] 4.10 10*6/uL 4.2-5.4 [facility] Blood hemoglobin measurement (mass/volume)Ordered By: Laurence Erazo on 04-30-2023 Hemoglobin (Bld) [Mass/Vol] 12.3 g/dL 12.0-15.0 [facility] Blood platelet mean volumeOr dered By: Laurence Erazo on 04-30-2023 Platelet mean volume (Bld) [Entitic vol] 10.6 fL 6.2-12.0 [facility] Determination of erythrocyte mean corpuscular volume (MCV)Ordered By: Laurence Erazo on 04-30-2023 MCV (RBC) [Entitic vol] 88.3 fL 81-99 [facility] Hematocrit Auto (Bld) [Volum e fraction]Ordered By: Laurence Erazo on 04-30-2023 Hematocrit (Bld) [Volume fraction] 36.2 % 37-47 [facility] Ketones Test strip Ql (U)Ord ered By: Laurence Erazo on 04-30-2023 Ketones Ql (U) Negative Negative [facility] Laboratory - Chemistry and C hemistry - challengeOrdered By: Laurence Erazo on 04-30-2023 ALT [Catalytic activity/Vol] 23 U/L 13-56 [facility] - Hematology and Cell countsOrdered By: Laurence Erazo on 04-30-2023 Erythrocyte distribution width (RBC) [Entitic vol] 44.8 fL 35.1-43.9 [facility] Erythrocyte distribution width (RBC) [Ratio] 13.9 % 11.6-14.6 [facility] MCH (RBC) [Entitic mass] 30.0 pg 27.0-32.0 [facility] MCHC Auto (RBC) [Mass/Vol]Or dered By: Laurence Erazo on 04-30-2023 MCHC (RBC) [Mass/Vol] 34.0 g/dL 32-36 [facility] Mucus LM Ql (Urine sed)Order ed By: Laurence Erazo on 04-30-2023 Mucus Ql (Urine sed) 0 SEEN /hpf [facility] Nitrite Test strip Ql (U)Ord ered By: Laurence Erazo on 04-30-2023 Nitrite Ql (U) Negative Negative [facility] No Panel InformationOrdered By: Laurence Erazo on 04-30-2023 Estimated Creatinine Clearance Calc 139.49 ml/min [facility] Estimated GFR (MDRD) Amer 189 mL/min >60 [facility] Comment on above: GFR Calc Estimated GFR (MDRD) Non-Af Amer 156 mL/min >60 [facility] Comment on above: Non- GFR Calc 30.0 pg 27.0-32.0 [facility] [facility] 13.9 % 11.6-14.6 [facility] 44.8 fl 35.1-43.9 [facility] 156 mL/min >60 [facility] 189 mL/min >60 [facility] 139.49 ml/min [facility] 23 U/L 13-56 [facility] Platelets bldOrdered By: Marisa Erazo on 04-30-2023 Platelets (Bld) [#/Vol] 165 10*3/uL 150-450 [facility] Protein Test strip Ql (U)Ord ered By: Laurence Erazo on 04-30-2023 Protein Ql (U) Negative Negative [facility] Serum or plasma creatinine m easurement (mass/volume)Ordered By: Laurence Erazo on 04-30-2023 Creatinine [Mass/Vol] 0.51 mg/dL 0.55-1.02 [facility] Comment on above: The validity of the calculated GFR & GFRAA in patients over 70 years has not been determined. Clinical correlation is essential. Serum or plasma uric acid me asurement (mass/volume)Ordered By: Laurence Erazo on 04-30-2023 Urate [Mass/Vol] 3.6 mg/dL 2.6-6.0 [facility] Comment on above: The drugs N-Acetylcy steine and Metamizole may falsely depress this assay. Squamous epithelial cells de tection in urine sediment by light microscopyOrdered By: Laurence Erazo on 04-30-2023 Epithelial cells.squamous LM Ql (Urine sed) 0-5 SEEN /hpf 5-10 [facility] Thin prep Papanicolaou smear with manual screeningOrdered By: Laurence Erazo on 04-30-2023 Thin prep Papanicolaou smear with manual screening 19 U/L 15-37 [facility] Urine blood detectionOrdered By: Laurence Erazo on 04-30-2023 RBC Ql (U) Negative Negative [facility] RBC Ql (U) 0 SEEN /hpf 0-5 [facility] Urine clarityOrdered By: Marisa Erazo on 04-30-2023 Clarity (U) Sl. Cloudy Clear [facility] Urine color determinationOrd ered By: Laurence Erazo on 04-30-2023 Color (U) Straw Yellow [facility] Urine creatinine measurement (mass/volume)Ordered By: Laurence Erazo on 04-30-2023 Creatinine (U) [Mass/Vol] mg/dL NO RANGE EST. [facility] Urine glucose detectionOrder ed By: Laurence Erazo on 04-30-2023 Glucose Ql (U) Normal mg/dl Normal [facility] Urine leukocyte esterase det ection by dipstickOrdered By: Laurence Erazo on 04-30-2023 Leukocyte esterase Test strip Ql (U) Negative Negative [facility] Urine pHOrdered By: Laurence Erazo on 04-30-2023 pH (U) 7.0 [pH] 5.0 - 8.0 [facility] Urine protein measurement (m ass/volume)Ordered By: Laurence Erazo on 04-30-2023 Protein (U) [Mass/Vol] mg/dL 0.0-11.8 [facility] Urine protein/creatinine mas s ratioOrdered By: Laurence Erazo on 04-30-2023 Protein/Creatinine (U) [Mass ratio] TNP [facility] Comment on above: Test not performed Urine sediment bacteria coun t by microscopy (number/high power field)Ordered By: Laurence Erazo on 04-30-2023 Bacteria LM.HPF (Urine sed) [#/Area] 0 /[HPF] None Seen [facility] Urine specific gravity measu rementOrdered By: Laurence Erazo on 04-30-2023 Specific gravity (U) [Rel density] 1.010 1.002-1.030 [facility] Urobilinogen Auto test strip Ql (U)Ordered By: Laurence Erazo on 04-30-2023 Urobilinogen Ql (U) Normal mg/dl Normal [facility] Laboratory - Chemistry and C hemistry - challengeon 04-27-2023 Glucose Ql (U) Negative [facility] Laboratory - Urinalysison Protein Ql (U) Negative [facility] No Panel Informationon 04-27 Negative [facility] Absolute lymphocyte countOrd ered By: Dr. Colindres on 04-24-2023 Lymphocytes Auto (Unsp spec) [#/Vol] 1.90 10*3/uL 0.83-4.51 [facility] Basophil percentageOrdered B y: Angelia Colindres on 04-24-2023 Basophil percentage 89 mg/dL 74-106 [facility] [place] Basophil percentage 7.7 g/dL 6.4-8.2 [facility] [place] Basophil percentage 0.30 mg/dL 0.20-1.00 [facility] [place] Basophil percentage 137 mmol/L 136-145 [facility] [place] Basophil percentage 3.9 mmol/L 3.5-5.1 [facility] [place] Basophil percentage 105 mmol/L 98-107 [facility] [place] Basophils (Bld) [#/Vol] 18.5 10*3/uL 4.4-11.0 [facility] Basophils (Bld) [#/Vol] 15.1 10*3/uL 2.0-7.7 [facility] Basophils/100 WBC (Bld) 81.6 % 47-70 [facility] Basophils/100 WBC (Bld) 0.9 % 0-5 [facility] Basophil percentageOrdered B y: Dr. Colindres on 04-24-2023 Basophils/100 WBC (Bld) 0.2 % 0-1 [facility] Bilirubin [Mass/Vol] 0.30 mg/dL 0.20-1.00 [facility] Comment on above: For patients on eltr ombopag therapy, use of [employer] [place] TBIL is not recommended. Chloride [Moles/Vol] 105 mmol/L 98-107 [facility] Eosinophils/100 WBC (Bld) 0.9 % 0-5 [facility] Glucose [Mass/Vol] 89 mg/dL 74-106 [facility] Neutrophils (Bld) [#/Vol] 15.1 10*3/uL 2.0-7.7 [facility] Neutrophils/100 WBC (Bld) 81.6 % 47-70 [facility] Potassium [Moles/Vol] 3.9 mmol/L 3.5-5.1 [facility] Protein [Mass/Vol] 7.7 g/dL 6.4-8.2 [facility] Sodium [Moles/Vol] 137 mmol/L 136-145 [facility] WBC (Bld) [#/Vol] 18.5 10*3/uL 4.4-11.0 [facility] [place] Blood erythrocytes count (nu mber/volume)Ordered By: Dr. Colindres on 04-24-2023 RBC (Bld) [#/Vol] 4.19 10*6/uL 4.2-5.4 [facility] [place] Blood hemoglobin measurement (mass/volume)Ordered By: Dr. Colindres on 04-24-2023 Hemoglobin (Bld) [Mass/Vol] 12.4 g/dL 12.0-15.0 [facility] Blood lymphocytes/100 leukoc ytesOrdered By: Dr. Colindres on 04-24-2023 Lymphocytes/100 WBC (Bld) 10.3 % 19-41 [facility] Blood monocytes/100 leukocyt esOrdered By: Dr. Colindres on 04-24-2023 Monocytes/100 WBC (Bld) 6.2 % 0-10 [facility] Blood platelet mean volumeOr dered By: Dr. Colindres on 04-24-2023 Platelet mean volume (Bld) [Entitic vol] 10.3 fL 6.2-12.0 [facility] Determination of erythrocyte mean corpuscular volume (MCV)Ordered By: Dr. Colindres on 04-24-2023 MCV (RBC) [Entitic vol] 89.3 fL 81-99 [facility] Hematocrit Auto (Bld) [Volum e fraction]Ordered By: Dr. Colindres on 04-24-2023 Hematocrit (Bld) [Volume fraction] 37.4 % 37-47 [facility] Laboratory - Chemistry and C hemistry - challengeOrdered By: Dr. Colindres on 04-24-2023 ALP [Catalytic activity/Vol] 130 U/L 45-117 [facility] ALT [Catalytic activity/Vol] 21 U/L 13-56 [facility] CO2 [Moles/Vol] 26.0 mmol/L 21.0-32.0 [facility] Globulin (S) [Mass/Vol] 4.6 g/dL 2.2-4.2 [facility] Urea nitrogen/Creatinine [Mass ratio] 14.5 mg/mg 10-20 [facility] Laboratory - Chemistry and C hemistry - challengeon 04-24-2023 Glucose Ql (U) Negative [facility] Laboratory - Hematology and Cell countsOrdered By: Dr. Colindres on 04-24-2023 Erythrocyte distribution width (RBC) [Entitic vol] 45.8 fL 35.1-43.9 [facility] Erythrocyte distribution width (RBC) [Ratio] 14.1 % 11.6-14.6 [facility] Immature granulocytes/100 WBC (Bld) 0.800 % 0.0-0.9 [facility] Comment on above: IG% - Immature Granu locytes (promyelocytes, myelocytes and metamyelocytes) > 1% indicates that a LEFT SHIFT is Present. MCH (RBC) [Entitic mass] 29.6 pg 27.0-32.0 [facility] Nucleated RBC/100 WBC (Bld) [Ratio] 0 % 0-5 [facility] Laboratory - Urinalysison Protein Ql (U) Negative [facility] MCHC Auto (RBC) [Mass/Vol]Or dered By: Dr. Colindres on 04-24-2023 MCHC (RBC) [Mass/Vol] 33.2 g/dL 32-36 [facility] No Panel InformationOrdered By: Dr. Colindres on 04-24-2023 Estimated GFR (MDRD) Amer 171 mL/min >60 [facility] Comment on above: GFR Calc Estimated GFR (MDRD) Non-Af Amer 142 mL/min >60 [facility] Comment on above: Non- GFR Calc No Panel InformationOrdered By: Angelia Colindres on 04-24-2023 29.6 pg 27.0-32.0 [facility] 14.1 % 11.6-14.6 [facility] 45.8 fl 35.1-43.9 [facility] 0.800 % 0.0-0.9 [facility] 0 % 0-5 [facility] 142 mL/min >60 [facility] 171 mL/min >60 [facility] 14.5 RATIO 10-20 [facility] 4.6 g/dL 2.2-4.2 [facility] 130 U/L 45-117 [facility] 21 U/L 13-56 [facility] 26.0 mmol/L 21.0-32.0 [facility] No Panel Informationon 04-24 Negative [facility] Platelets bldOrdered By: Dr. Colindres on 04-24-2023 Platelets (Bld) [#/Vol] 171 10*3/uL 150-450 [facility] Serum or plasma albumin nolan urement (mass/volume)Ordered By: Dr. Colindres on 04-24-2023 Albumin [Mass/Vol] 3.1 g/dL 3.2-5.0 [facility] Serum or plasma albumin/glob ulin mass ratioOrdered By: Dr. Colindres on 04-24-2023 Albumin/Globulin [Mass ratio] 0.7 {ratio} 0.9-2.4 [facility] Serum or plasma calcium nolan urement (mass/volume)Ordered By: Dr. Colindres on 04-24-2023 Calcium [Mass/Vol] 9.5 mg/dL 8.5-10.1 [facility] Serum or plasma creatinine m easurement (mass/volume)Ordered By: Dr. Colindres on 04-24-2023 Creatinine [Mass/Vol] 0.55 mg/dL 0.55-1.02 [facility] Comment on above: The validity of the calculated GFR & GFRAA in patients over 70 years has not been determined. Clinical correlation is essential. Serum or plasma urea nitroge n measurement (mass/volume)Ordered By: Dr. Colindres on 04-24-2023 Urea nitrogen [Mass/Vol] 8 mg/dL 7-18 [facility] Thin prep Papanicolaou smear with manual screeningOrdered By: Dr. Colindres on 04-24-2023 Thin prep Papanicolaou smear with manual screening 14 U/L 15-37 [facility] Thin prep Papanicolaou smear with manual screening 6 5-15 [facility] Laboratory - Chemistry and C hemistry - challengeon 04-21-2023 Glucose Ql (U) Negative [facility] Laboratory - Urinalysison Protein Ql (U) Negative [facility] No Panel Informationon 04-21 Negative [facility] Absolute lymphocyte countOrd ered By: Enid Reyez on 04-18-2023 Lymphocytes Auto (Unsp spec) [#/Vol] 1.53 10*3/uL 0.83-4.51 [facility] Basophil percentageOrdered B y: Enid Reyez on 04-18-2023 Basophil percentage 80 mg/dL 74-106 [facility] [place] Basophil percentage 7.5 g/dL 6.4-8.2 [facility] [place] Basophil percentage 0.20 mg/dL 0.20-1.00 [facility] [place] Basophil percentage 139 mmol/L 136-145 [facility] [place] Basophil percentage 3.5 mmol/L 3.5-5.1 [facility] [place] Basophil percentage 106 mmol/L 98-107 [facility] [place] Basophils (Bld) [#/Vol] 15.7 10*3/uL 4.4-11.0 [facility] Basophils (Bld) [#/Vol] 12.7 10*3/uL 2.0-7.7 [facility] Basophils/100 WBC (Bld) 0.2 % 0-1 [facility] Basophils/100 WBC (Bld) 80.7 % 47-70 [facility] Basophils/100 WBC (Bld) 0.8 % 0-5 [facility] Bilirubin [Mass/Vol] 0.20 mg/dL 0.20-1.00 [facility] Comment on above: For patients on eltr ombopag therapy, use of [employer] [place] TBIL is not recommended. Chloride [Moles/Vol] 106 mmol/L 98-107 [facility] Eosinophils/100 WBC (Bld) 0.8 % 0-5 [facility] Glucose [Mass/Vol] 80 mg/dL 74-106 [facility] Neutrophils (Bld) [#/Vol] 12.7 10*3/uL 2.0-7.7 [facility] Neutrophils/100 WBC (Bld) 80.7 % 47-70 [facility] Potassium [Moles/Vol] 3.5 mmol/L 3.5-5.1 [facility] Protein [Mass/Vol] 7.5 g/dL 6.4-8.2 [facility] Sodium [Moles/Vol] 139 mmol/L 136-145 [facility] WBC (Bld) [#/Vol] 15.7 10*3/uL 4.4-11.0 [facility] [place] Blood erythrocytes count (nu mber/volume)Ordered By: Enid Reyez on 04-18-2023 RBC (Bld) [#/Vol] 4.23 10*6/uL 4.2-5.4 [facility] [place] Blood hemoglobin measurement (mass/volume)Ordered By: Enid Reyez on 04-18-2023 Hemoglobin (Bld) [Mass/Vol] 12.3 g/dL 12.0-15.0 [facility] Blood lymphocytes/100 leukoc ytesOrdered By: Enid Reyez on 04-18-2023 Lymphocytes/100 WBC (Bld) 9.7 % 19-41 [facility] Blood monocytes/100 leukocyt esOrdered By: Enid Reyez on 04-18-2023 Monocytes/100 WBC (Bld) 7.8 % 0-10 [facility] Blood platelet mean volumeOr dered By: Enid Reyez on 04-18-2023 Platelet mean volume (Bld) [Entitic vol] 10.7 fL 6.2-12.0 [facility] Determination of erythrocyte mean corpuscular volume (MCV)Ordered By: Enid Reyez on 04-18-2023 MCV (RBC) [Entitic vol] 88.4 fL 81-99 [facility] Hematocrit Auto (Bld) [Volum e fraction]Ordered By: Enid Reyez on 04-18-2023 Hematocrit (Bld) [Volume fraction] 37.4 % 37-47 [facility] Laboratory - Chemistry and C hemistry - challengeOrdered By: Enid Reyez on 04-18-2023 ALP [Catalytic activity/Vol] 125 U/L 45-117 [facility] ALT [Catalytic activity/Vol] 22 U/L 13-56 [facility] CO2 [Moles/Vol] 25.0 mmol/L 21.0-32.0 [facility] Globulin (S) [Mass/Vol] 4.4 g/dL 2.2-4.2 [facility] Urea nitrogen/Creatinine [Mass ratio] 13.0 mg/mg 10-20 [facility] Laboratory - Chemistry and C hemistry - challengeon 04-18-2023 Glucose Ql (U) Negative [facility] Laboratory - Hematology and Cell countsOrdered By: Enid Reyez on 04-18-2023 Erythrocyte distribution width (RBC) [Entitic vol] 44.6 fL 35.1-43.9 [facility] Erythrocyte distribution width (RBC) [Ratio] 13.8 % 11.6-14.6 [facility] Immature granulocytes/100 WBC (Bld) 0.800 % 0.0-0.9 [facility] Comment on above: IG% - Immature Granu locytes (promyelocytes, myelocytes and metamyelocytes) > 1% indicates that a LEFT SHIFT is Present. MCH (RBC) [Entitic mass] 29.1 pg 27.0-32.0 [facility] Nucleated RBC/100 WBC (Bld) [Ratio] 0 % 0-5 [facility] Laboratory - Urinalysison Protein Ql (U) Negative [facility] MCHC Auto (RBC) [Mass/Vol]Or dered By: Enid Reyez on 04-18-2023 MCHC (RBC) [Mass/Vol] 32.9 g/dL 32-36 [facility] No Panel InformationOrdered By: Enid Reyez on 04-18-2023 Estimated GFR (MDRD) Amer 152 mL/min >60 [facility] Comment on above: GFR Calc Estimated GFR (MDRD) Non-Af Amer 125 mL/min >60 [facility] Comment on above: Non- GFR Calc 29.1 pg 27.0-32.0 [facility] 13.8 % 11.6-14.6 [facility] 44.6 fl 35.1-43.9 [facility] 0.800 % 0.0-0.9 [facility] 0 % 0-5 [facility] 125 mL/min >60 [facility] 152 mL/min >60 [facility] 13.0 RATIO 10-20 [facility] 4.4 g/dL 2.2-4.2 [facility] 125 U/L 45-117 [facility] 22 U/L 13-56 [facility] 25.0 mmol/L 21.0-32.0 [facility] No Panel Informationon 04-18 Negative [facility] Platelets bldOrdered By: Simone Reyez on 04-18-2023 Platelets (Bld) [#/Vol] 177 10*3/uL 150-450 [facility] Serum or plasma albumin nolan urement (mass/volume)Ordered By: Enid Reyez on 04-18-2023 Albumin [Mass/Vol] 3.1 g/dL 3.2-5.0 [facility] Serum or plasma albumin/glob ulin mass ratioOrdered By: Enid Reyez on 04-18-2023 Albumin/Globulin [Mass ratio] 0.7 {ratio} 0.9-2.4 [facility] Serum or plasma calcium nolan urement (mass/volume)Ordered By: Enid Reyez on 04-18-2023 Calcium [Mass/Vol] 9.0 mg/dL 8.5-10.1 [facility] Serum or plasma creatinine m easurement (mass/volume)Ordered By: Enid Reyez on 04-18-2023 Creatinine [Mass/Vol] 0.62 mg/dL 0.55-1.02 [facility] Comment on above: The validity of the calculated GFR & GFRAA in patients over 70 years has not been determined. Clinical correlation is essential. Serum or plasma urea nitroge n measurement (mass/volume)Ordered By: Enid Reyez on 04-18-2023 Urea nitrogen [Mass/Vol] 8 mg/dL 7-18 [facility] Thin prep Papanicolaou smear with manual screeningOrdered By: Enid Reyez on 04-18-2023 Thin prep Papanicolaou smear with manual screening 18 U/L 15-37 [facility] Thin prep Papanicolaou smear with manual screening 8 5-15 [facility] Urine creatinine measurement (mass/volume)Ordered By: Enid Reyez on 04-18-2023 Creatinine (U) [Mass/Vol] 16.00 mg/dL NO RANGE EST. [facility] Urine protein measurement (m ass/volume)Ordered By: Enid Reyez on 04-18-2023 Protein (U) [Mass/Vol] mg/dL 0.0-11.8 [facility] Urine protein/creatinine mas s ratioOrdered By: Enid Reyez on 04-18-2023 Protein/Creatinine (U) [Mass ratio] 325 mg/g CRE 0-200 [facility] Absolute lymphocyte countOrd ered By: Dr. Colindres on 04-14-2023 Lymphocytes Auto (Unsp spec) [#/Vol] 1.41 10*3/uL 0.83-4.51 [facility] Basophil percentageOrdered B y: Angelia Colindres on 04-14-2023 Basophil percentage 75 mg/dL 74-106 [facility] [place] Basophil percentage 7.2 g/dL 6.4-8.2 [facility] [place] Basophil percentage 0.20 mg/dL 0.20-1.00 [facility] [place] Basophil percentage 139 mmol/L 136-145 [facility] [place] Basophil percentage 4.0 mmol/L 3.5-5.1 [facility] [place] Basophil percentage 107 mmol/L 98-107 [facility] [place] Basophils (Bld) [#/Vol] 13.9 10*3/uL 4.4-11.0 [facility] Basophils (Bld) [#/Vol] 11.3 10*3/uL 2.0-7.7 [facility] Basophils/100 WBC (Bld) 81.3 % 47-70 [facility] Basophils/100 WBC (Bld) 0.9 % 0-5 [facility] Basophil percentageOrdered B y: Dr. Colindres on 04-14-2023 Basophils/100 WBC (Bld) 0.1 % 0-1 [facility] Bilirubin [Mass/Vol] 0.20 mg/dL 0.20-1.00 [facility] Comment on above: For patients on eltr ombopag therapy, use of [employer] [place] TBIL is not recommended. Chloride [Moles/Vol] 107 mmol/L 98-107 [facility] Eosinophils/100 WBC (Bld) 0.9 % 0-5 [facility] Glucose [Mass/Vol] 75 mg/dL 74-106 [facility] Neutrophils (Bld) [#/Vol] 11.3 10*3/uL 2.0-7.7 [facility] Neutrophils/100 WBC (Bld) 81.3 % 47-70 [facility] Potassium [Moles/Vol] 4.0 mmol/L 3.5-5.1 [facility] Protein [Mass/Vol] 7.2 g/dL 6.4-8.2 [facility] Sodium [Moles/Vol] 139 mmol/L 136-145 [facility] WBC (Bld) [#/Vol] 13.9 10*3/uL 4.4-11.0 [facility] [place] Blood erythrocytes count (nu mber/volume)Ordered By: Dr. Colindres on 04-14-2023 RBC (Bld) [#/Vol] 4.13 10*6/uL 4.2-5.4 [facility] [place] Blood hemoglobin measurement (mass/volume)Ordered By: Dr. Colindres on 04-14-2023 Hemoglobin (Bld) [Mass/Vol] 12.0 g/dL 12.0-15.0 [facility] Blood lymphocytes/100 leukoc ytesOrdered By: Dr. Colindres on 04-14-2023 Lymphocytes/100 WBC (Bld) 10.1 % 19-41 [facility] Blood monocytes/100 leukocyt esOrdered By: Dr. Colindres on 04-14-2023 Monocytes/100 WBC (Bld) 6.9 % 0-10 [facility] Blood platelet mean volumeOr dered By: Dr. Colindres on 04-14-2023 Platelet mean volume (Bld) [Entitic vol] 10.9 fL 6.2-12.0 [facility] Determination of erythrocyte mean corpuscular volume (MCV)Ordered By: Dr. Colindres on 04-14-2023 MCV (RBC) [Entitic vol] 89.1 fL 81-99 [facility] Hematocrit Auto (Bld) [Volum e fraction]Ordered By: Dr. Colindres on 04-14-2023 Hematocrit (Bld) [Volume fraction] 36.8 % 37-47 [facility] Laboratory - Chemistry and C hemistry - challengeOrdered By: Dr. Colindres on 04-14-2023 ALP [Catalytic activity/Vol] 122 U/L 45-117 [facility] ALT [Catalytic activity/Vol] 22 U/L 13-56 [facility] CO2 [Moles/Vol] 24.0 mmol/L 21.0-32.0 [facility] Globulin (S) [Mass/Vol] 4.3 g/dL 2.2-4.2 [facility] Urea nitrogen/Creatinine [Mass ratio] 14.2 mg/mg 10-20 [facility] Laboratory - Chemistry and C hemistry - challengeon 04-14-2023 Glucose Ql (U) Negative [facility] Laboratory - Hematology and Cell countsOrdered By: Dr. Colindres on 04-14-2023 Erythrocyte distribution width (RBC) [Entitic vol] 44.6 fL 35.1-43.9 [facility] Erythrocyte distribution width (RBC) [Ratio] 13.8 % 11.6-14.6 [facility] Immature granulocytes/100 WBC (Bld) 0.700 % 0.0-0.9 [facility] Comment on above: IG% - Immature Granu locytes (promyelocytes, myelocytes and metamyelocytes) > 1% indicates that a LEFT SHIFT is Present. MCH (RBC) [Entitic mass] 29.1 pg 27.0-32.0 [facility] Nucleated RBC/100 WBC (Bld) [Ratio] 0 % 0-5 [facility] Laboratory - Urinalysison Protein Ql (U) Negative [facility] MCHC Auto (RBC) [Mass/Vol]Or dered By: Dr. Colindres on 04-14-2023 MCHC (RBC) [Mass/Vol] 32.6 g/dL 32-36 [facility] No Panel InformationOrdered By: Dr. Colindres on 04-14-2023 Estimated GFR (MDRD) Amer 196 mL/min >60 [facility] Comment on above: GFR Calc Estimated GFR (MDRD) Non-Af Amer 162 mL/min >60 [facility] Comment on above: Non- GFR Calc No Panel InformationOrdered By: Angelia Colindres on 04-14-2023 29.1 pg 27.0-32.0 [facility] 13.8 % 11.6-14.6 [facility] 44.6 fl 35.1-43.9 [facility] 0.700 % 0.0-0.9 [facility] 0 % 0-5 [facility] 162 mL/min >60 [facility] 196 mL/min >60 [facility] 14.2 RATIO 10-20 [facility] 4.3 g/dL 2.2-4.2 [facility] 122 U/L 45-117 [facility] 22 U/L 13-56 [facility] 24.0 mmol/L 21.0-32.0 [facility] No Panel Informationon 04-14 Negative [facility] Platelets bldOrdered By: Dr. Colindres on 04-14-2023 Platelets (Bld) [#/Vol] 167 10*3/uL 150-450 [facility] Serum or plasma albumin nolan urement (mass/volume)Ordered By: Dr. Colindres on 04-14-2023 Albumin [Mass/Vol] 2.9 g/dL 3.2-5.0 [facility] Serum or plasma albumin/glob ulin mass ratioOrdered By: Dr. Colindres on 04-14-2023 Albumin/Globulin [Mass ratio] 0.7 {ratio} 0.9-2.4 [facility] Serum or plasma calcium nolan urement (mass/volume)Ordered By: Dr. Colindres on 04-14-2023 Calcium [Mass/Vol] 8.8 mg/dL 8.5-10.1 [facility] Serum or plasma creatinine m easurement (mass/volume)Ordered By: Dr. Colindres on 04-14-2023 Creatinine [Mass/Vol] 0.49 mg/dL 0.55-1.02 [facility] Comment on above: The validity of the calculated GFR & GFRAA in patients over 70 years has not been determined. Clinical correlation is essential. Serum or plasma urea nitroge n measurement (mass/volume)Ordered By: Dr. Colindres on 04-14-2023 Urea nitrogen [Mass/Vol] 7 mg/dL 7-18 [facility] Thin prep Papanicolaou smear with manual screeningOrdered By: Dr. Colindres on 04-14-2023 Thin prep Papanicolaou smear with manual screening 20 U/L 15-37 [facility] Thin prep Papanicolaou smear with manual screening 8 5-15 [facility] Urine creatinine measurement (mass/volume)Ordered By: Dr. Colindres on 04-14-2023 Creatinine (U) [Mass/Vol] 16.10 mg/dL NO RANGE EST. [facility] Urine protein measurement (m ass/volume)Ordered By: Dr. Colindres on 04-14-2023 Protein (U) [Mass/Vol] 9.4 mg/dL 0.0-11.8 [facility] Urine protein/creatinine mas s ratioOrdered By: Dr. Colindres on 04-14-2023 Protein/Creatinine (U) [Mass ratio] 584 mg/g CRE 0-200 [facility] Laboratory - Chemistry and C hemistry - challengeon 04-11-2023 Glucose Ql (U) Negative [facility] Laboratory - Urinalysison Protein Ql (U) Negative [facility] No Panel Informationon 04-11 Negative [facility] Culture, urineOrdered By: Simon Reyez on 04-06-2023 Bacteria identified Cx Nom (U) Positive [facility] Bacteria identified Cx Nom ( U)Ordered By: Enid Reyez on 04-04-2023 Culture, urine Positive [facility] Bilirubin Test strip Ql (U)O rdered By: Enid Reyez on 04-04-2023 Bilirubin Ql (U) Negative Negative [facility] Ketones Test strip Ql (U)Ord ered By: Enid Reyez on 04-04-2023 Ketones Ql (U) Negative Negative [facility] Nitrite Test strip Ql (U)Ord ered By: Enid Reyez on 04-04-2023 Nitrite Ql (U) Negative Negative [facility] Protein Test strip Ql (U)Ord ered By: Enid Reyez on 04-04-2023 Protein Ql (U) Negative Negative [facility] Urine blood detectionOrdered By: Enid Reyez on 04-04-2023 RBC Ql (U) Negative Negative [facility] Urine clarityOrdered By: Simone Reyez on 04-04-2023 Clarity (U) Clear Clear [facility] Urine color determinationOrd ered By: Enid Reyez on 04-04-2023 Color (U) Yellow Yellow [facility] Urine glucose detectionOrder ed By: Enid Reyez on 04-04-2023 Glucose Ql (U) Normal mg/dl Normal [facility] Urine leukocyte esterase det ection by dipstickOrdered By: Enid Reyez on 04-04-2023 Leukocyte esterase Test strip Ql (U) Negative Negative [facility] Urine pHOrdered By: Enid allison on 04-04-2023 pH (U) 7.0 [pH] 5.0 - 8.0 [facility] Urine specific gravity measu rementOrdered By: Enid Reyez on 04-04-2023 Specific gravity (U) [Rel density] 1.005 1.002-1.030 [facility] Urobilinogen Auto test strip Ql (U)Ordered By: Enid Reyez on 04-04-2023 Urobilinogen Ql (U) Normal mg/dl Normal [facility] Laboratory - Chemistry and C hemistry - challengeon 03-31-2023 Glucose Ql (U) Negative [facility] Laboratory - Urinalysison Protein Ql (U) Negative [facility] No Panel Informationon 03-31 Negative [facility] Absolute lymphocyte countOrd ered By: Enid Reyez on 03-15-2023 Lymphocytes Auto (Unsp spec) [#/Vol] 0.95 10*3/uL 0.83-4.51 [facility] Basophil percentageOrdered B y: Enid Reyez on 03-15-2023 Basophils (Bld) [#/Vol] 12.5 10*3/uL 4.4-11.0 [facility] Basophils (Bld) [#/Vol] 10.2 10*3/uL 2.0-7.7 [facility] Basophils/100 WBC (Bld) 0.2 % 0-1 [facility] Basophils/100 WBC (Bld) 81.8 % 47-70 [facility] Basophils/100 WBC (Bld) 0.8 % 0-5 [facility] Eosinophils/100 WBC (Bld) 0.8 % 0-5 [facility] Neutrophils (Bld) [#/Vol] 10.2 10*3/uL 2.0-7.7 [facility] Neutrophils/100 WBC (Bld) 81.8 % 47-70 [facility] WBC (Bld) [#/Vol] 12.5 10*3/uL 4.4-11.0 [facility] Blood erythrocytes count (nu mber/volume)Ordered By: Enid Reyez on 03-15-2023 RBC (Bld) [#/Vol] 4.09 10*6/uL 4.2-5.4 [facility] Blood hemoglobin measurement (mass/volume)Ordered By: Enid Reyez on 03-15-2023 Hemoglobin (Bld) [Mass/Vol] 11.6 g/dL 12.0-15.0 [facility] Blood lymphocytes/100 leukoc ytesOrdered By: Enid Reyez on 03-15-2023 Lymphocytes/100 WBC (Bld) 7.6 % 19-41 [facility] Blood monocytes/100 leukocyt esOrdered By: Enid Reyez on 03-15-2023 Monocytes/100 WBC (Bld) 8.8 % 0-10 [facility] Blood platelet mean volumeOr dered By: Enid Reyez on 03-15-2023 Platelet mean volume (Bld) [Entitic vol] 10.5 fL 6.2-12.0 [facility] Determination of erythrocyte mean corpuscular volume (MCV)Ordered By: Enid Reyez on 03-15-2023 MCV (RBC) [Entitic vol] 88.3 fL 81-99 [facility] Gestational diabetes screen 1-hour screen with 50g oral glucose loadOrdered By: Enid Reyez on 03-15-2023 Glucose 1 Hr post 50 g glucose PO [Mass/Vol] 123 mg/dL 70-140 [facility] HIV 1 and HIV-2 antibody ass ay with HIV-1 p24 antigen detectionOrdered By: Enid Reyez on 03-15-2023 HIV 1+2 Ab+HIV1 p24 Ag IA Ql Non-Reactive Nonreactive [facility] Hematocrit Auto (Bld) [Volum e fraction]Ordered By: Enid Reyez on 03-15-2023 Hematocrit (Bld) [Volume fraction] 36.1 % 37-47 [facility] Laboratory - Chemistry and C hemistry - challengeon 03-15-2023 Glucose Ql (U) Negative [facility] Laboratory - Hematology and Cell countsOrdered By: Enid Reyez on 03-15-2023 Erythrocyte distribution width (RBC) [Entitic vol] 42.7 fL 35.1-43.9 [facility] Erythrocyte distribution width (RBC) [Ratio] 13.2 % 11.6-14.6 [facility] Immature granulocytes/100 WBC (Bld) 0.800 % 0.0-0.9 [facility] Comment on above: IG% - Immature Granu locytes (promyelocytes, myelocytes and metamyelocytes) > 1% indicates that a LEFT SHIFT is Present. MCH (RBC) [Entitic mass] 28.4 pg 27.0-32.0 [facility] Nucleated RBC/100 WBC (Bld) [Ratio] 0 % 0-5 [facility] Laboratory - Urinalysison Protein Ql (U) Negative [facility] MCHC Auto (RBC) [Mass/Vol]Or dered By: Enid Reyez on 03-15-2023 MCHC (RBC) [Mass/Vol] 32.1 g/dL 32-36 [facility] No Panel Informationon 03-15 Negative [facility] No Panel InformationOrdered By: Enid Reyez on 03-15-2023 28.4 pg 27.0-32.0 [facility] 13.2 % 11.6-14.6 [facility] 42.7 fl 35.1-43.9 [facility] 0.800 % 0.0-0.9 [facility] 0 % 0-5 [facility] Platelets bldOrdered By: Simone Reyez on 03-15-2023 Platelets (Bld) [#/Vol] 170 10*3/uL 150-450 [facility] Serum Treponema species anti body detectionOrdered By: Enid Reyez on 03-15-2023 Treponema sp Ab Ql (S) Non-Reactive [facility] Laboratory - Chemistry and C hemistry - challengeon 02-17-2023 Glucose Ql (U) Negative [facility] Laboratory - Urinalysison Protein Ql (U) Negative [facility] No Panel Informationon 02-17 Negative [facility] Basophil percentageOrdered B y: Enid Reyez on 02-10-2023 Basophils (Bld) [#/Vol] 13.0 10*3/uL 4.4-11.0 [facility] WBC (Bld) [#/Vol] 13.0 10*3/uL 4.4-11.0 [facility] Blood erythrocytes count (nu mber/volume)Ordered By: Endi Reyez on 02-10-2023 RBC (Bld) [#/Vol] 4.05 10*6/uL 4.2-5.4 [facility] Blood hemoglobin measurement (mass/volume)Ordered By: Enid Reyez on 02-10-2023 Hemoglobin (Bld) [Mass/Vol] 12.1 g/dL 12.0-15.0 [facility] Blood platelet mean volumeOr dered By: Enid Reyez on 02-10-2023 Platelet mean volume (Bld) [Entitic vol] 10.6 fL 6.2-12.0 [facility] Determination of erythrocyte mean corpuscular volume (MCV)Ordered By: Enid Reyez on 02-10-2023 MCV (RBC) [Entitic vol] 87.7 fL 81-99 [facility] Hematocrit Auto (Bld) [Volum e fraction]Ordered By: Enid Reyez on 02-10-2023 Hematocrit (Bld) [Volume fraction] 35.5 % 37-47 [facility] Laboratory - Chemistry and C hemistry - challengeOrdered By: Enid Reyez on 02-10-2023 ALT [Catalytic activity/Vol] 15 U/L [facility] Laboratory - Hematology and Cell countsOrdered By: Enid Reyez on 02-10-2023 Erythrocyte distribution width (RBC) [Entitic vol] 42.1 fL 35.1-43.9 [facility] Erythrocyte distribution width (RBC) [Ratio] 13.2 % 11.6-14.6 [facility] MCH (RBC) [Entitic mass] 29.9 pg 27.0-32.0 [facility] MCHC Auto (RBC) [Mass/Vol]Or dered By: Enid Reyez on 02-10-2023 MCHC (RBC) [Mass/Vol] 34.1 g/dL 32-36 [facility] No Panel InformationOrdered By: Enid Reyez on 02-10-2023 Estimated GFR (MDRD) Amer 144 mL/min >60 [facility] Comment on above: GFR Calc Estimated GFR (MDRD) Non-Af Amer 119 mL/min >60 [facility] Comment on above: Non- GFR Calc 29.9 pg 27.0-32.0 [facility] 13.2 % 11.6-14.6 [facility] 42.1 fl 35.1-43.9 [facility] 119 mL/min >60 [facility] 144 mL/min >60 [facility] 15 U/L [facility] Platelets bldOrdered By: Simone Reyez on 02-10-2023 Platelets (Bld) [#/Vol] 165 10*3/uL 150-450 [facility] Serum or plasma creatinine m easurement (mass/volume)Ordered By: Enid Reyez on 02-10-2023 Creatinine [Mass/Vol] 0.64 mg/dL 0.55-1.02 [facility] Comment on above: The validity of the calculated GFR & GFRAA in patients over 70 years has not been determined. Clinical correlation is essential. Serum or plasma uric acid me asurement (mass/volume)Ordered By: Enid Reyez on 02-10-2023 Urate [Mass/Vol] 3.9 mg/dL 2.6-6.0 [facility] Comment on above: The drugs N-Acetylcy steine and Metamizole may falsely depress this assay. Thin prep Papanicolaou smear with manual screeningOrdered By: Enid Reyze on 02-10-2023 Thin prep Papanicolaou smear with manual screening 16 U/L 15-37 [facility] Urine creatinine measurement (mass/volume)Ordered By: Enid Reyez on 02-10-2023 Creatinine (U) [Mass/Vol] mg/dL NO RANGE EST. [facility] Urine protein measurement (m ass/volume)Ordered By: Enid Reyez on 02-10-2023 Protein (U) [Mass/Vol] mg/dL 0.0-11.8 [facility] Urine protein/creatinine mas s ratioOrdered By: Enid Reyez on 02-10-2023 Protein/Creatinine (U) [Mass ratio] TNP [facility] Comment on above: Test not performed No Panel InformationOrdered By: Enid Reyez on 02-07-2023 Vaginal Amniotic Fluid Detection Negative Negative [facility] Comment on above: Amniotic fluid not p resent indicates No Rupture of FetalMembranes at time of specimen collection. Negative Negative [facility] Laboratory - Chemistry and C hemistry - challengeon 01-25-2023 Glucose Ql (U) Negative [facility] Laboratory - Urinalysison Protein Ql (U) Negative [facility] No Panel Informationon 01-25 Negative [facility] Laboratory - Chemistry and C hemistry - challengeon 02-03-2023 Glucose Ql (U) Negative [facility] Laboratory - Urinalysison Protein Ql (U) Negative [facility] Absolute lymphocyte countOrd ered By: Dr. Lyons on 11-24-2022 Lymphocytes Auto (Unsp spec) [#/Vol] 1.95 10*3/uL 0.83-4.51 [facility] Basophil percentageOrdered B y: Dr. Lyons on 11-24-2022 Basophils/100 WBC (Bld) 0.2 % 0-1 [facility] Eosinophils/100 WBC (Bld) 0.6 % 0-5 [facility] Neutrophils (Bld) [#/Vol] 9.6 10*3/uL 2.0-7.7 [facility] Neutrophils/100 WBC (Bld) 77.3 % 47-70 [facility] WBC (Bld) [#/Vol] 12.4 10*3/uL 4.4-11.0 [facility] Blood erythrocytes count (nu mber/volume)Ordered By: Dr. Lyons on 11-24-2022 RBC (Bld) [#/Vol] 4.16 10*6/uL 4.2-5.4 [facility] Blood hemoglobin measurement (mass/volume)Ordered By: Dr. Lyons on 11-24-2022 Hemoglobin (Bld) [Mass/Vol] 12.3 g/dL 12.0-15.0 [facility] Blood lymphocytes/100 leukoc ytesOrdered By: Dr. Lyons on 11-24-2022 Lymphocytes/100 WBC (Bld) 15.8 % 19-41 [facility] Blood monocytes/100 leukocyt esOrdered By: Dr. Lyons on 11-24-2022 Monocytes/100 WBC (Bld) 5.9 % 0-10 [facility] Blood platelet mean volumeOr dered By: Dr. Lyons on 11-24-2022 Platelet mean volume (Bld) [Entitic vol] 10.9 fL 6.2-12.0 [facility] Determination of erythrocyte mean corpuscular volume (MCV)Ordered By: Dr. Lyons on 11-24-2022 MCV (RBC) [Entitic vol] 85.3 fL 81-99 [facility] HIV 1 and HIV-2 antibody ass ay with HIV-1 p24 antigen detectionOrdered By: Dr. Lyons on 11-24-2022 HIV 1+2 Ab+HIV1 p24 Ag IA Ql Non-Reactive Nonreactive [facility] Hematocrit Auto (Bld) [Volum e fraction]Ordered By: Dr. Lyons on 11-24-2022 Hematocrit (Bld) [Volume fraction] 35.5 % 37-47 [facility] Laboratory - Chemistry and C hemistry - challengeon 11-24-2022 Glucose Ql (U) Negative [facility] Laboratory - Hematology and Cell countsOrdered By: Dr. Lyons on 11-24-2022 Erythrocyte distribution width (RBC) [Entitic vol] 42.3 fL 35.1-43.9 [facility] Erythrocyte distribution width (RBC) [Ratio] 13.5 % 11.6-14.6 [facility] Immature granulocytes/100 WBC (Bld) 0.200 % 0.0-0.9 [facility] Comment on above: IG% - Immature Granu locytes (promyelocytes, myelocytes and metamyelocytes) > 1% indicates that a LEFT SHIFT is Present. MCH (RBC) [Entitic mass] 29.6 pg 27.0-32.0 [facility] Nucleated RBC/100 WBC (Bld) [Ratio] 0 % 0-5 [facility] Laboratory - Urinalysison Protein Ql (U) Negative [facility] MCHC Auto (RBC) [Mass/Vol]Or dered By: Dr. Lyons on 11-24-2022 MCHC (RBC) [Mass/Vol] 34.6 g/dL 32-36 [facility] No Panel InformationOrdered By: Dr. Lyons on 11-24-2022 Hepatitis B Surface Antigen Non-Reactive Nonreactive [facility] Hepatitis C Antibody Non-Reactive Nonreactive [facility] Comment on above: Non Reactive: < 0.8 Equivocal: >/= 0.8 to < 1.0 Reactive: >/= 1.0The CDC recommends that a reactive/equivocal HCV antibody result be followed up by the HCV Nucleic Acid Amplificationtest (819256) Miscellaneous Test Comment MAILED SPECIMEN [facility] Rubella IgG Antibody Reactive Nonreactive [facility] Comment on above: Antibody Results Int erpretation of Immune Status Non Reactive Presumed Non-Immune Equivocal Equivocal Reactive Presumed Immune Platelets bldOrdered By: Dr. Lyons on 11-24-2022 Platelets (Bld) [#/Vol] 195 10*3/uL 150-450 [facility] Serum Treponema species anti body detectionOrdered By: Dr. Lyons on 11-24-2022 Treponema sp Ab Ql (S) Non-Reactive [facility] Culture, urineOrdered By: Dr Piedad Lyons on 11-09-2022 Bacteria identified Cx Nom (U) Mixed Gram Pos & Gram Neg Org [facility] Chlamydia trachomatis rRNA d etection by probe and target amplification methodOrdered By: Dr. Lyons on 11-08-2022 C. trachomatis rRNA DAVID+probe Ql (Unsp spec) Negative Negative [facility] Laboratory - Microbiology an d Antimicrobial susceptibilityOrdered By: Dr. Lyons on 11-08-2022 N. gonorrhoeae DNA DAVID+probe Ql (Unsp spec) Negative Negative [facility] Comment on above: Performed at: =[address] [id number] Director: Yoli Espinal MD, Phone: [phone] Provider Note - ED v3on 10-20 Provider Note - ED v3 Provider Note: Chart Review: ED NOTES ED NOTES: Patient presents for evaluation of urinary frequency that has been ongoing for the past few days. Pt states she is 8 weeks . Pt denies dysuria, abdominal pains, vaginal bleeding or discharge, cramping, back pains, n/v/d, fever or any other associated symptoms or complaints. Pt states she had a normal US on 06/27 and has a f/u appointment with OB next week. HISTORY OF PRESENTING ILLNESS GERALD is a 27 year old Female and was seen by me at 01-Nov-2022 16:24. Triage Information: Most recent Vital Sign Value Date PAST MEDICAL HISTORY ALLERGIES/INTOLERANCES: No Known Allergies HEALTH HISTORY: No documented data. OUTPATIENT MEDICATIONS: Home Medications Review Status for Reconciliation: Complete Med Status: Patient Currently Takes Medications Drug Name: Instructions: null Drug Name: cephalexin 500 mg oral tablet Instructions: 1 tab(s) orally 2 times a day x 7 days SIGNIFICANT EVENTS: Past Medical History Description:Migraines Past Surgical History Description:Dilitation & Curretage (D&C) Social/Behavioral Description:DENIES ALCOHOL/TOBACCO NEIGHBORHOOD CONSERVATION OFFICER: Is : no Is : no REVIEW OF SYSTEMS All other systems reviewed and are negative REVIEW OF SYSTEMS: Comments See HPI PHYSICAL EXAM CONSTITUTIONAL: Well appearing, well nourished, awake, alert, oriented to person, place, time/situation and in no apparent distress. GASTROINTESTINAL: Abdomen soft, non-distended, no rebound, no guarding, no suprapubic tenderness. Bowel sounds normal in all 4 quadrants. GENITOURINARY: No discharge, no lesions per pt report. No CVA tenderness on exam. MUSCULOSKELETAL: Spine appears normal, range of motion is not limited, no muscle or joint tenderness. NEUROLOGICAL: Alert and oriented, no focal deficits, no motor or sensory deficits. SKIN: Skin normal color for race, warm, dry and intact. No evidence of trauma. CRITICAL CARE VITAL SIGNS: T PRBP SpO2O2(LPM) %FiO2 Method 01-Nov-2022 16:11:[id number] 100 MDM MDM/ED COURSE: Discussed Findings with: patient Data Reviewed: vital signs Treatment Plan: Rx keflex. Urinalysis only significant for trace-intact blood, see remaining results in flowsheet. Urine sent for culture. Encouraged patient to increase water intake, avoid caffeine/sugary drinks, avoid baths, void after intercourse, wipe front to back. Discharged with instructions to return to office, f/u with pcp/bowling floor desk clerk, or go to ED if symptoms persist or worsen. DISPOSITION Diagnosis/Annotation: ED Dx Name:Urinary frequency Code:R35.0 Disposition: discharged Type: home CONSULT CRITICAL CARE TIME Is this a critically ill patient: no Electronic Signatures: Vel Mccurdy (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) (Signed 01-Nov-2022 19:41) Authored: ED Notes, HPI, PMH, ROS, PE, Results/Vital Signs, MDM/ED Course, Clinical Impression, Attestation, Chart Review, Scores Last Updated: 01-Nov-2022 19:41 by Vel Mccurdy (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) Normal [facility] URINE CULTURE,BACTERIALon URINE CULTURE,BACTERIAL PATIENT: Trace MILLER LOCATION: [address]#: [id number] : [birth year] AGE: SEX: F ORDERED BY: VEL MCCURDY SOURCE: URINE COLLECTED: 11/01/22 17:32 ANTIBIOTICS AT RAZ.: RECEIVED : 11/02/22 05:00 SITE: Clean Catch/Voided R E S U L T S URINE CULTURE,BACTERIAL FINAL 11/02/22 22:43 NO SIGNIFICANT GROWTH. Normal [facility] Comment on above: Performed By: #### U [facility] #### [facility] [address] [place] [address] HCG,BETA-QUANTITATIVEon 06-20 HCG,BETA-QUANTITATIVE <2 Normal [facility] Comment on above: Result Comment: Low- level positive HCG results can be seen in early , in alli- or post-menopausal females due to normal pituitary HCG production, or with analytic interference. Repeat testing in 48-72 hours can aid in assessing for as results should double in this time period. FSH measurement is recommended in alli- or post-menopausal females as concurrent elevation of FSH can support pituitary production as the source of the HCG elevation. . Total HCG measurement is performed using the [employer] [place] Access Immunoassay which detects intact HCG and free beta HCG subunit. This test is not indicated for use as a tumor marker. HCG testing is performed using a different test methodology at [facility] than other [facility]. Direct result comparison should only be made within the same method. REF VALUES NON FEMALE <5 MALES <5 Performed By: #### H QU #### [facility] [address] [id number] NEIGHBORHOOD CONSERVATION OFFICER - Office Visiton 05-21 NEIGHBORHOOD CONSERVATION OFFICER - Office Visit Chief Complaint Patient is here due to amenorrhea. LMP: unsure. Patient states she had a period in February and some spotting in March. Patient c/o nausea and breast tenderness. Patient denies any cramps or vaginal bleeding. History of Present IllnessZentz stating that she has not had a menstrual flow for several months. She is unsure of her last menstrual period. She has some nausea and breast tenderness for several weeks. Denies any vaginal bleeding. Review of Systems Review of Systems: Constitutional: No fever or chills Respiratory: No shortness of breath, or cough Cardiovascular: No chest pain or syncope Breasts: No breast pain, no masses, no nipple discharge Gastrointestinal: No vomiting, or diarrhea, no abdominal pain Genitourinary: No dysuria or frequency Gynecology: Negative except as noted in history of present illness All other: All other systems reviewed and negative for complaint Active Problems Anxiety (300.00) (F41.9) Positive urine test (V72.42) (Z32.01) Past Medical History History of (V13.29) 2017-SPONTANEOUS 02/04/2018-SPONTANEOUS 11/23/2018-38 WEEKS, , MALE, #7 4OZ History of Menarche (V21.8) Surgical History History of section 11/23/18 male 7lb 4 ox. Cat II FHT History of Dilation and curettage sab ANDDANDc x2 Family History Family history of diabetes mellitus (V18.0) (Z83.3) Family history of HTN (hypertension), benign Family history of malignant neoplasm of breast (V16.3) (Z80.3) Social History Never smoker No alcohol use No illicit drug use Sexually active Allergies No Known Drug Allergies Recorded By: Fatmata Moses; 06/10/2020 1:27:42 PM Current Meds No Reported Medications Recorded TAI = N; Record; Last Updated By: Fatmata Moses; 06/10/2020 1:27:42 PM Vitals Vital Signs Recorded: [id number] 01:53PM Gdympfsamub48.9 F Rdwajrph060 Xregfphxw88 Height5 ft 3 in Dkoxaj92.4 kg BMI Owjdwcoswy08.06 BSA Calculated1.78 LMPUnsure Physical Exam PHYSICAL EXAMINATION: Well-developed, well nourished, in no acute distress, alert and oriented x three, is pleasant and cooperative. HEENT: Clear. Pupils equal, round and reactive to light and accommodation. Extraocular muscles are intact. Oral mucosa pink without exudate. NECK: No lymphadenopathy, no thyromegaly. LUNGS: Clear bilaterally. HEART: Regular rate and rhythm without murmurs. ABDOMEN: Normoactive bowel sounds, soft and nontender, no guarding or rebound tenderness, no CVA tenderness. Transabdominal ultrasound shows a live intrauterine at 8 weeks 2 days gestation. EDC is January 24, 2021. EXTREMITIES: No clubbing, cyanosis or edema. NEUROLOGIC: Cranial nerves II-XII grossly intact. Results/Data IO HCG, Urine [id number] 01:47PMTramaineStanley colbert Medline hCG [id number] Exp: 03/19/2021 Test NameResultFlagReference IO Urine hCGPositiveA Diagnoses/Problems Positive urine test (V72.42) (Z32.01) Amenorrhea (626.0) (N91.2) Orders IO HCG, Urine Test; Status:Resulted - Requires Verification,Retrospecti ve Authorization; Done: [id number] 01:47PM Performed:In Office; Due:14Sep2020; Last Updated By:Flores Lopez; 06/16/2020 1:55:32 PM;Ordered; For:Positive urine test; Ordered By:Stanley Simental; Provider Impressions 1. Amenorrhea She is encouraged to start taking vitamins. Follow-up in 4 weeks for her new OB visit and blood work. Signatures Electronically signed by : Stanley Simental MD; Jun 16 2020 2:08PM EST (Author) Normal Touchworks Placenta Pathology Request - NO EXAMon 11-27-2018 Placenta Pathology Request - NO EXAM Collected Normal [facility] Comment on above: Performed By: #### 3 [id number] #### SUE [facility] [address] [place] [address] Auto Diffon 11-25-2018 Basophils (Bld) [#/Vol] 0.0 E3/mcL Normal 0.0-0.2 [facility] Comment on above: Order Comment: Order Added by Discern Expert. Performed By: #### 3 [id number] #### SUE [employer] [facility] [place] [address] Basophils/100 WBC (Bld) 0.2 % Normal 0.0-2.0 [facility] Comment on above: Order Comment: Order Added by Discern Expert. Performed By: #### 3 [id number] #### SUE [facility] [address] [place] [address] Eos Absolute 0.3 E3/mcL Normal 0.0-0.7 [facility] Comment on above: Order Comment: Order Added by Discern Expert. Performed By: #### 3 [id number] #### SUE [employer] [address] [place] [address] Eosinophils/100 WBC (Bld) 2.6 % Normal 0.0-11.0 [facility] Comment on above: Order Comment: Order Added by Discern Expert. Performed By: #### 3 [id number] #### SUE [facility] [address] [place] [address] Lymphocytes (Bld) [#/Vol] 1.4 E3/mcL Normal 1.2-3.4 [facility] Comment on above: Order Comment: Order Added by Discern Expert. Performed By: #### 3 [id number] #### SUE [facility] [address] [place] [address] Lymphocytes/100 WBC (Bld) 11.1 % Low 20.0-55.0 [facility] Comment on above: Order Comment: Order Added by Discern Expert. Performed By: #### 3 [id number] #### SUE [facility] [address] [place] [address] [place] Absolute 1.2 E3/mcL High 0.0-0.7 [facility] Comment on above: Order Comment: Order Added by Discern Expert. Performed By: #### 3 [id number] #### SUE [facility] [address] [place] [address] Monocytes/100 WBC (Bld) 9.4 % Normal 0.0-10.0 [facility] Comment on above: Order Comment: Order Added by Discern Expert. Performed By: #### 3 [id number] #### SUE [facility] [address] [place] [address] Neutro Absolute 9.5 E3/mcL High 1.4-6.5 [facility] Comment on above: Order Comment: Order Added by Discern Expert. Performed By: #### 3 [id number] #### [facility] [address] [place] [address] Neutro Auto 76.7 % High 37.0-75.0 [facility] Comment on above: Order Comment: Order Added by Discern Expert. Performed By: #### 3 [id number] #### [facility]UE [facility] [address] [place] [address] CBC w/ Auto Diffon 9 Erythrocyte distribution width (RBC) [Ratio] 14.2 % Normal 11.5-14.5 [facility] Comment on above: Performed By: #### 3 [id number] #### [facility] [employer] [address] [place] [address] Hematocrit (Bld) [Volume fraction] 31.2 % Low 36.0-48.0 [facility] Comment on above: Performed By: #### 3 [id number] #### [facility] [employer] [address] [place] [address] Hemoglobin (Bld) [Mass/Vol] 10.5 g/dL Low 12.0-16.0 [facility] Comment on above: Performed By: #### 3 [id number] #### [facility] [employer] [facility] [place] [address] MCH (RBC) [Entitic mass] 29.4 pg Normal 27.0-31.0 [facility] Comment on above: Performed By: #### 3 [id number] #### SUE [employer] [facility] [place] [address] MCHC (RBC) [Mass/Vol] 33.5 g/dL Normal 33.0-37.0 [facility] Comment on above: Performed By: #### 3 [id number] #### [facility] [employer] [address] [place] [address] MCV (RBC) [Entitic vol] 87.7 fL Normal 78.0-100.0 [facility] Comment on above: Performed By: #### 3 [id number] #### [facility] [employer] [address] [place] [address] Platelet mean volume (Bld) [Entitic vol] 9.3 fL Normal 7.4-11.0 [facility] Comment on above: Performed By: #### 3 [id number] #### [facility] [employer] [address] [place] [address] Platelets (Bld) [#/Vol] 152 E3/mcL Normal 130-400 [facility] Comment on above: Performed By: #### 3 [id number] #### [facility] [address] [place] [address] RBC (Bld) [#/Vol] 3.56 E6/mcL Low 3.90-5.40 [facility] Comment on above: Performed By: #### 3 [id number] #### [facility] [employer] [address] [place] [address] WBC (Bld) [#/Vol] 12.4 E3/mcL High 3.6-11.0 [facility] Comment on above: Performed By: #### 3 [id number] #### [facility] [employer] [address] [place] [address] Hematocriton 11-24-2018 Hematocrit (Bld) [Volume fraction] 31.1 % Low 36.0-48.0 [facility] Comment on above: Performed By: #### 3 [id number] #### [facility]UE [employer] [facility] [address] Hemoglobinon 11-24-2018 Hemoglobin (Bld) [Mass/Vol] 10.5 g/dL Low 12.0-16.0 [facility] Comment on above: Performed By: #### 3 [id number] #### [facility] [employer] [address] [place], [place] [address] ABO/Rh Echoon 11-23-2018 ABO/Rh E Interp... Positive Normal [facility] Comment on above: Performed By: #### 3 [id number] #### [facility] [employer] [address] [place], [place] [address] ActimPromon 11-23-2018 ActimProm Negative Normal Negative [facility] Comment on above: Performed By: #### 6 [id number] #### SUE Chemistry Manual Subsection [facility] [place] [address] ActimProm Int Ctl Pass Normal [facility] Comment on above: Performed By: #### 6 [id number] #### SUE Chemistry Manual Subsection [facility] [place] [address] Antibody Screen Cap...on Screen Interp... Negative Normal [facility] Comment on above: Performed By: #### 3 [id number] #### [facility] [employer] [address] [place] [address] Auto Diffon 11-23-2018 Basophils (Bld) [#/Vol] 0.0 E3/mcL Normal 0.0-0.2 [facility] Comment on above: Order Comment: Order Added by Discern Expert. Performed By: #### 2 [id number] #### SUE [employer] [address] [place] [address] Basophils/100 WBC (Bld) 0.1 % Normal 0.0-2.0 [facility] Comment on above: Order Comment: Order Added by Discern Expert. Performed By: #### 2 [id number] #### [facility]UE [employer] [address] [place] [address] Eos Absolute 0.1 E3/mcL Normal 0.0-0.7 [facility] Comment on above: Order Comment: Order Added by Discern Expert. Performed By: #### 2 [id number] #### [facility] [employer] [address] [place] [address] Eosinophils/100 WBC (Bld) 0.9 % Normal 0.0-11.0 [facility] Comment on above: Order Comment: Order Added by Discern Expert. Performed By: #### 2 [id number] #### SUE [employer] [address] [place] [address] Lymphocytes (Bld) [#/Vol] 1.7 E3/mcL Normal 1.2-3.4 [facility] Comment on above: Order Comment: Order Added by Discern Expert. Performed By: #### 2 [id number] #### [facility]UE [employer] [address] [place] [address] Lymphocytes/100 WBC (Bld) 11.6 % Low 20.0-55.0 [facility] Comment on above: Order Comment: Order Added by Discern Expert. Performed By: #### 2 [id number] #### SUE [employer] [address] [place] [address] [place] Absolute 1.4 E3/mcL High 0.0-0.7 [facility] Comment on above: Order Comment: Order Added by Discern Expert. Performed By: #### 2 [id number] #### SUE [employer] [address] [place] [address] Monocytes/100 WBC (Bld) 9.6 % Normal 0.0-10.0 [facility] Comment on above: Order Comment: Order Added by Discern Expert. Performed By: #### 2 [id number] #### SUE [facility] [address] [place] [address] Neutro Absolute 11.3 E3/mcL High 1.4-6.5 [facility] Comment on above: Order Comment: Order Added by Discern Expert. Performed By: #### 2 [id number] #### [facility] [employer] [address] [place] [address] Neutro Auto 77.8 % High 37.0-75.0 [facility] Comment on above: Order Comment: Order Added by Discern Expert. Performed By: #### 2 [id number] #### SUE [employer] [address] [place] [address] CBC w/ Auto Diffon Erythrocyte distribution width (RBC) [Ratio] 14.1 % Normal 11.5-14.5 [facility] Comment on above: Performed By: #### 2 [id number] #### SUE [employer] [address] [place] [address] Hematocrit (Bld) [Volume fraction] 37.1 % Normal 36.0-48.0 [facility] Comment on above: Performed By: #### 2 [id number] #### SUE [employer] [address] [place] [address] Hemoglobin (Bld) [Mass/Vol] 12.4 g/dL Normal 12.0-16.0 [facility] Comment on above: Performed By: #### 2 [id number] #### SUE [employer] [address] [place] [address] MCH (RBC) [Entitic mass] 29.1 pg Normal 27.0-31.0 [facility] Comment on above: Performed By: #### 2 [id number] #### SUE [employer] [address] [place] [address] MCHC (RBC) [Mass/Vol] 33.5 g/dL Normal 33.0-37.0 [facility] Comment on above: Performed By: #### 2 [id number] #### SUE [employer] [address] [place] [address] MCV (RBC) [Entitic vol] 86.7 fL Normal 78.0-100.0 [facility] Comment on above: Performed By: #### 2 [id number] #### SUE [employer] [address] [place] [address] Platelet mean volume (Bld) [Entitic vol] 9.8 fL Normal 7.4-11.0 [facility] Comment on above: Performed By: #### 2 [id number] #### SUE [employer] [address] [place], [place] [address] Platelets (Bld) [#/Vol] 163 E3/mcL Normal 130-400 [facility] Comment on above: Performed By: #### 2 [id number] #### SUE [employer] [address] [place], [place] [address] RBC (Bld) [#/Vol] 4.28 E6/mcL Normal 3.90-5.40 [facility] Comment on above: Performed By: #### 2 [id number] #### SUE [employer] [address] [place], [place] [address] WBC (Bld) [#/Vol] 14.5 E3/mcL High 3.6-11.0 [facility] Comment on above: Performed By: #### 2 [id number] #### SUE [employer] [address] [place], [place] [address] Group B Strep PCRon 11-10-20 18 Group B Strep PCR Negative Normal [facility] Comment on above: Order Comment: For p ositive results only; Penicillin is the recommended antibiotic for the treatment of Group B Streptococcal disease. In case of penicillin allergy, Clindamycin may be used. All Negative GBS Screens by PCR will be confirmed by culture. Performed By: #### 2 [id number] #### SUE Microbiology [facility]section [address] [place] [address] .Manual Abson 08-16-2018 Basophil Abs Man 0.0 10x3/ Normal 0.0-0.2 [facility] Comment on above: Order Comment: Order Added by Discern Expert. Performed By: #### 3 [id number] #### SUE [facility] [facility] [place] [address] Eos Abs Man 0.1 10x3/ Normal 0.0-0.5 [facility] Comment on above: Order Comment: Order Added by Discern Expert. Performed By: #### 3 [id number] #### SUE [facility] [address] [place] [address] Lymph Abs Man 0.8 10x3/ Low 1.2-3.4 [facility] Comment on above: Order Comment: Order Added by Discern Expert. Performed By: #### 3 [id number] #### SUE [facility] [address] [place] [address] [place] Abs Man 0.1 10x3/ Normal 0.0-0.7 [facility] Comment on above: Order Comment: Order Added by Discern Expert. Performed By: #### 3 [id number] #### [facility] [address] [place] [address] Segs Abs Man 11.0 10x3/ High 1.4-6.5 [facility] Comment on above: Order Comment: Order Added by Discern Expert. Performed By: #### 3 [id number] #### [facility]UE [facility] [address] [place], [place] [address] CBC w/ Auto Diffon 8 Erythrocyte distribution width (RBC) [Ratio] 13.3 % Normal 11.5-14.5 [facility] Comment on above: Performed By: #### 2 [id number] #### SUE [facility] [place] [address] Hematocrit (Bld) [Volume fraction] 35.5 % Low 36.0-48.0 [facility] Comment on above: Performed By: #### 2 [id number] #### SUE [facility] [address] Hemoglobin (Bld) [Mass/Vol] 11.9 g/dL Low 12.0-16.0 [facility] Comment on above: Performed By: #### 2 151704 #### SUE[facility]j [facility] [address] MCH (RBC) [Entitic mass] 30.6 pg Normal 27.0-31.0 [facility] Comment on above: Performed By: #### 2 [id number] #### SUE [employer] [facility] [address] MCHC (RBC) [Mass/Vol] 33.4 g/dL Normal 33.0-37.0 [facility] Comment on above: Performed By: #### 2 270704 #### SUE [facility] [address] [place] [address] MCV (RBC) [Entitic vol] 91.5 fL Normal 78.0-100.0 [facility] Comment on above: Performed By: #### 2 637388 #### SUE [facility] [facility] [place] [address] Platelet mean volume (Bld) [Entitic vol] 9.1 fL Normal 7.4-11.0 [facility] Comment on above: Performed By: #### 2 [id number] #### SUE [facility] [place] [address] Platelets (Bld) [#/Vol] 180 E3/mcL Normal 130-400 [facility] Comment on above: Performed By: #### 2 [id number] #### SUE [employer] [address] [place] [address] RBC (Bld) [#/Vol] 3.88 E6/mcL Low 3.90-5.40 [facility] Comment on above: Performed By: #### 2 260225 #### SUE [facility] [place] [address] WBC (Bld) [#/Vol] 13.7 E3/mcL High 3.6-11.0 [facility] Comment on above: Performed By: #### 2 [id number] #### SUE [facility] [place] [address] Gest Scr Glu 1 Hron 08-16-20 18 Glucose [Mass/Vol] 129 mg/dL Normal 70-140 [facility] Comment on above: Performed By: #### 3 [id number] #### [facility]UE [facility] [address] [place] [address] Manual Diffon 08-16-2018 Band form neutrophils/100 WBC (Bld) 11 High 0-1 [facility] Comment on above: Order Comment: Order Added by Discern Expert. Performed By: #### 2 [id number] #### SUE [facility] [address] [place] [address] Basophil Man 0 % Normal 0-1 [facility] Comment on above: Order Comment: Order Added by Discern Expert. Performed By: #### 2 757898 #### SUE [facility] [address] [place] [address] Eosinophils/100 WBC (Bld) 1 % Normal 0-5 [facility] Comment on above: Order Comment: Order Added by Discern Expert. Performed By: #### 2 [id number] #### SUE [facility] [address] [place] [address] Lymphocytes/100 WBC (Bld) 6 % Low 14-48 [facility] Comment on above: Order Comment: Order Added by Discern Expert. Performed By: #### 2 [id number] #### SUE [facility] [address] [place] [address] Monocyte Man 1 % Normal 1-11 [facility] Comment on above: Order Comment: Order Added by Discern Expert. Performed By: #### 2 249131 #### SUE [facility] [address] [place] [address] RBC morphology finding Nom (Bld) NORMAL Normal [facility] Comment on above: Order Comment: Order Added by Discern Expert. Performed By: #### 2 [id number] #### SUE [facility] [address] [place] [address] React Lymph Man 1 % Normal [facility] Comment on above: Order Comment: Order Added by Discern Expert. Performed By: #### 2 140615 #### SUE [facility] [address] [place] [address] Segs Man 80 % High 37-75 [facility] Comment on above: Order Comment: Order Added by Discern Expert. Performed By: #### 2 698581 #### SUE [facility] [address] [place] [address] zzplt morphon 08-16-2018 Platelet morphology finding Nom (Bld) NORMAL Normal [facility] Comment on above: Performed By: #### 9 [id number] #### SUE [facility] [address] [place] [address] Platelets (Bld) [#/Vol] NORMAL [facility] Comment on above: Performed By: #### 9 [id number] #### SUE Cedric [facility] [place] [address] US After 1st Trime steron 07-19-2018 US After 1st Trimester Exam Date/Time: 07/19/2018 09:47 EDT Reason for Exam: DATES & ANATOMY;Standard Anatomy Report STUDY: US After 1st Trimester 07/19/2018 9:47 am INDICATION: 22 y/o F with Standard Anatomy. LMP: 03/01/2018 COMPARISON: None. ACCESSION NUMBER(S): [id number] ORDERING CLINICIAN: Yosef Lyons TECHNIQUE: Routine ultrasound of the pelvis was performed. Evaluation of the female pelvis was performed by transabdominal and subsequent transvaginal technique. Static images were obtained for remote interpretation. FINDINGS: There is a single live intrauterine gestation in transverse presentation with head to the right.. Measurements by gestational age: BPD: 20 weeks 5 days HC: 20 weeks 3 days AC: 20 weeks 2 days FL: 20 weeks 1 day This results in a composite gestational age of 20 weeks 2 days, +/-1 week 3 days. The estimated date of delivery by ultrasound is 12/04/2018. The patient's LMP was 03/01/2018,therefore by dates the fetus should be 20 weeks. heart rate measures 163bpm. The placenta is anterior in position. The amniotic fluid volume appears appropriate. Cervical length: 5.6 cm weight: 344 g anatomy: The stomach, spine in the sagittal and transverse planes, 4 chamber heart view, kidneys, bladder, head and neck and cavum septum pellucidum appeared normal. Maternal anatomy: Not specifically evaluated, but no abnormalities observed. Exam Date/Time: 07/19/2018 09:47 EDT Report IMPRESSION: Single live intrauterine gestation corresponding to a gestational age of 20 weeks 2 days FINAL REPORT Dictated: 07/19/2018 12:37 pm Smith Drummond MD Signed (Electronic Signature): 07/19/2018 12:37 pm Signed by: Smith Drummond MD Technologist: Normal [facility] CBC w/o Diffon 08-07-2017 Erythrocyte distribution width Auto Ratio (RBC) 12.8 % Normal 10.0-14.4 [facility] Comment on above: Performed By: #### C BCWOD, HCGQT ####Unless otherwise noted, all testing performed by [address] [id number]: [id number] Director: Neto Hernandez M.D. Erythrocytes (RBC) 4.52 M/mcL Normal 3.7-5.0 [facility] Comment on above: Performed By: #### C BCWOD, HCGQT ####Unless otherwise noted, all testing performed by [address] [phone]: [id number] Director: Neto Hernandez M.D. Hematocrit (HCT) 39.5 % Normal 34.4-44.8 [facility] Comment on above: Performed By: #### C BCWOD, HCGQT ####Unless otherwise noted, all testing performed by [place] [phone]: [id number] Director: Neto Hernandez M.D. Hemoglobin mass conc (Bld) 13.8 g/dL Normal 11.6-15.4 [facility] Comment on above: Performed By: #### C BCWOD, HCGQT ####Unless otherwise noted, all testing performed by [address] [phone]: [id number] Director: Neto Hernandez M.D. MCH 30.6 pg Normal 27.9-33.9 [facility] Comment on above: Performed By: #### C BCWOD, HCGQT ####Unless otherwise noted, all testing performed by [address] [phone]: [id number] Director: Neto Hernandez M.D. MCHC mass conc (RBC) 35.0 g/dL Normal 33.1-35.1 [facility] Comment on above: Performed By: #### C BCWOD, HCGQT ####Unless otherwise noted, all testing performed by [address] [phone]: [id number] Director: Neto Hernandez M.D. MCV 87.4 fL Normal 82.6-98.9 [facility] Comment on above: Performed By: #### C BCWOD, HCGQT ####Unless otherwise noted, all testing performed by [address] [id number]: [id number] Director: Neto Hernandez M.D. Platelet mean volume (PMV) 8.6 fL Normal 7.0-10.6 [facility] Comment on above: Performed By: #### C BCWOD, HCGQT ####Unless otherwise noted, all testing performed by [address] [phone]: [id number] Director: Neto Hernandez M.D. Platelets 165 K/mcL Normal 162-402 [facility] Comment on above: Performed By: #### C BCWOD, HCGQT ####Unless otherwise noted, all testing performed by [address] [phone]: [id number] Director: Neto Hernandez M.D. WBC (Leukocytes) 11.1 K/mcL High 3.4-10.6 [facility] Comment on above: Performed By: #### C BCWOD, HCGQT ####Unless otherwise noted, all testing performed by [address] [phone]: [id number] Director: Neto Hernandez M.D. HCG, Quantitativeon 08-07-20 17 HCG, Quantitative 105 mIU/mL Normal [facility] Comment on above: Result Comment: HCG, Quant. Reference Range: [Units mIU/ml]Gestation Age Approx.HCG0.2-1Week 5-501-2 Weeks 50-5002-3 Weeks 100-5,0003-4 Weeks 500-10,0004-5 Weeks 1,000-50,0006-8 Weeks 15,000-200,0002-3 Months 10,000-100,000Non- Females <5Males <5 Performed By: #### C BCWOD, HCGQT ####Unless otherwise noted, all testing performed by [address] [id number]: [id number] Director: Neto Hernandez M.D. Rh Immune Globulin Panelon 0 08-07-2017 Rh Immune Globulin Panel Positive Normal [facility] Comment on above: Performed By: #### R HIG ####Unless otherwise noted, all testing performed by [address] [id number]: [id number] Director: Neto Hernandez M.D. OB 1ST TRIM SNGLE OR 1ST GESTon 08-07-2017 OB 1ST TRIM SNGLE OR 1ST GEST Final ReportAccession No: [id number] Performed: Aug 07 2017 10:01AMExamination: US OB 1ST TRIM SNGLE OR 1ST [id number] describes positive home test. G0. Serum beta-xLG905. Pelvis pain.TRANSVAGINAL FIRST TRIMESTER OB ULTRASOUND 08/07/2017 10:00 AMFINDINGS: Right ovary measures 3.3 cc volume. An area along the superiorportion of the right ovary appears somewhat thick-walled with tiny fluidcollection which may simply reflect a small follicle, however ectopicpregnancy cannot be excluded. This measures about 8 mm in size.The left ovary appears unremarkable measuring 2.9 cc volume. Normal flowis seen in the right and left ovaries on duplex/Doppler waveforminterrogation.Sm all-volume simple appearing pelvic fluid is noted.The uterus measures 45 x 78 x 38 mm with endometrial stripe 10 mm. Anarea at the inferior portion of the endometrial canal is slightlyhyperechoic and rounded measuring 8 x 15 mm, lobular relative to theremainder of the endometrium, possibly reflecting a polyp. This is nottypical in appearance of IUP.IMPRESSION:1. I cannot exclude ectopic at the right ovary, though thefindings are nonspecific and not highly suspicious. Correlate with serumbeta-hCG levels. Follow-up pelvis ultrasound should be considered.2. No definite intrauterine is demonstrated.3. Polypoid area at the mid endometrium is nonspecific.Impression reviewed with Bertin Ojeda M.D. of the emergency department viaphone 08/07/2017 10:05 AMInterpreting Physician: AUGUSTINE ARTHUR M.D.Trans: : cc: Normal [facility] OB TRANSVAGINALon 08-07- 017 OB TRANSVAGINAL Final ReportAccession No: [id number] Performed: Aug 07 2017 10:01AMExamination: US OB [id number] describes positive home test. G0. Serum beta-iRY864. Pelvis pain.TRANSVAGINAL FIRST TRIMESTER OB ULTRASOUND 08/07/2017 10:00 AMFINDINGS: Right ovary measures 3.3 cc volume. An area along the superiorportion of the right ovary appears somewhat thick-walled with tiny fluidcollection which may simply reflect a small follicle, however ectopicpregnancy cannot be excluded. This measures about 8 mm in size.The left ovary appears unremarkable measuring 2.9 cc volume. Normal flowis seen in the right and left ovaries on duplex/Doppler waveforminterrogation.Sm all-volume simple appearing pelvic fluid is noted.The uterus measures 45 x 78 x 38 mm with endometrial stripe 10 mm. Anarea at the inferior portion of the endometrial canal is slightlyhyperechoic and rounded measuring 8 x 15 mm, lobular relative to theremainder of the endometrium, possibly reflecting a polyp. This is nottypical in appearance of IUP.IMPRESSION:1. I cannot exclude ectopic at the right ovary, though thefindings are nonspecific and not highly suspicious. Correlate with serumbeta-hCG levels. Follow-up pelvis ultrasound should be considered.2. No definite intrauterine is demonstrated.3. Polypoid area at the mid endometrium is nonspecific.Impression reviewed with Bertin Ojeda M.D. of the emergency department viaphone 08/07/2017 10:05 AMInterpreting Physician: AUGUSTINE ARTHUR M.D.Trans: : cc: Normal [facility] Urinalysis, Routineon 2016 Bilirubin,Urine Negative Normal NEG;NEGATIVE [facility] Comment on above: Performed By: #### U A ####Unless otherwise noted, all testing performed by [address] [id number]: [id number] Director: Neto Hernandez M.D. Blood,Urine Large Abnormal NEG;NEGATIVE [facility] Comment on above: Performed By: #### U A ####Unless otherwise noted, all testing performed by [address] [id number]: [id number] Director: Neto Hernandez M.D. Ketone,Urine Negative Normal NEG;NEGATIVE [facility] Comment on above: Performed By: #### U A ####Unless otherwise noted, all testing performed by [address] [id number]: [id number] Director: Neto Hernandez M.D. Leuk.Esterase,Urine Negative Normal Negative [facility] Comment on above: Performed By: #### U A ####Unless otherwise noted, all testing performed by [address] [id number]: [id number] Director: Neto Hernandez M.D. Nitrite,Urine Negative Normal NEG;NEGATIVE [facility] Comment on above: Performed By: #### U A ####Unless otherwise noted, all testing performed by [phone]: [id number] Director: Neto Hernandez M.D. Protein,Urine Negative Normal NEG;NEGATIVE [facility] Comment on above: Performed By: #### U A ####Unless otherwise noted, all testing performed by [address] [id number]: [id number] Director: Neto Hernandez M.D. Specific [place],Urine 1.009 Normal 1.003-1.029 [facility] Comment on above: Performed By: #### U A ####Unless otherwise noted, all testing performed by [address] [id number]: [id number] Director: Neto Hernandez M.D. Squamous Epithelial 1 /HPF Normal 0-40 [facility] Comment on above: Performed By: #### U A ####Unless otherwise noted, all testing performed by [place] [phone]: [id number] Director: Neto Hernandez M.D. Urine, character Clear Normal [facility] Comment on above: Performed By: #### U A ####Unless otherwise noted, all testing performed by [place] [address] [place] [phone]: [id number] Director: Neto Hernandez M.D. Urine, color Straw Normal [facility] Comment on above: Performed By: #### U A ####Unless otherwise noted, all testing performed by [place] [id number]: [id number] Director: Neto Hernandez M.D. Urine, glucose presence Negative Normal NEG;NEGATIVE [facility] Comment on above: Performed By: #### U A ####Unless otherwise noted, all testing performed by [place] [id number]: [id number] Director: Neto Hernandez M.D. Urine, pH 8.0 [pH] Normal 4.5-8.0 [facility] Comment on above: Performed By: #### U A ####Unless otherwise noted, all testing performed by [phone]: [id number] Director: Neto Hernandez M.D. Urobilinogen,Urine < 2.0 Normal <2 [facility] Comment on above: Performed By: #### U A ####Unless otherwise noted, all testing performed by [place] [id number]: [id number] Director: Neto Hernandez M.D. Culture, urine Bacteria identified Cx Nom (U) Mixed Gram Pos & Gram Neg Org [facility] Work Phone: Vital Signs Date Time Vital Sign Value Performing Clinician Facility 09-05-2025 08:49-0400 Body height 160.02 cm Griselda Linton [employer] Work Phone: [facility] 09-05-2025 08:49-0400 Body mass index (BMI) [Ratio] 36.3 kg/m2 Griselda Linton [employer] Work Phone: [facility] 09-05-2025 08:49-0400 Body weight 93.18 kg Griselda Linton [employer] Work Phone: [facility] 09-05-2025 08:49-0400 Diastolic blood pressure 83 mm[Hg] Griselda Linton [employer] Work Phone: [facility] 09-05-2025 08:49-0400 Systolic blood pressure 137 mm[Hg] Griselda Linton [employer] Work Phone: [facility] 08-21-2025 14:44-0400 Diastolic blood pressure 78 mm[Hg] Griselda Linton [employer] Work Phone: [facility] 08-21-2025 14:44-0400 Systolic blood pressure 126 mm[Hg] Griselda Linton [employer] Work Phone: [facility] 08-21-2025 14:28-0400 Body height 160.02 cm Griselda Linton [employer] Work Phone: [facility] 08-21-2025 14:24-0400 Body mass index (BMI) [Ratio] 35.6 kg/m2 Griselda Linton [employer] Work Phone: [facility] 08-21-2025 14:24-0400 Body weight 91.17 kg Griselda Linton [employer] Work Phone: [facility] 07-29-2025 09:48-0400 Body height 160.02 cm Griselda Linton [employer] Work Phone: [facility] 07-29-2025 09:48-0400 Body mass index (BMI) [Ratio] 34.6 kg/m2 Griselda Linton [employer] Work Phone: [facility] 07-29-2025 09:48-0400 Body weight 88.62 kg Griselda Linton [employer] Work Phone: [facility] 07-29-2025 09:48-0400 Diastolic blood pressure 80 mm[Hg] Griselda Linton [employer] Work Phone: [facility] 07-29-2025 09:48-0400 Systolic blood pressure 121 mm[Hg] Griselda Linton [employer] Work Phone: [facility] 07-03-2025 09:51-0400 Body height 160.02 cm Griselda Linton [employer] Work Phone: [facility] 07-03-2025 09:39-0400 Body mass index (BMI) [Ratio] 33.1 kg/m2 Griselda Linton [employer] Work Phone: [facility] 07-03-2025 09:39-0400 Body weight 84.96 kg Griselda Linton [employer] Work Phone: [facility] 07-03-2025 09:39-0400 Diastolic blood pressure 80 mm[Hg] Griselda Linton [employer] Work Phone: [facility] 07-03-2025 09:39-0400 Systolic blood pressure 132 mm[Hg] Griselda Linton [employer] Work Phone: [facility] 06-18-2025 08:44-0400 Diastolic blood pressure 85 mm[Hg] Griselda Linton [employer] Work Phone: [facility] 06-18-2025 08:44-0400 Systolic blood pressure 129 mm[Hg] Griselda Linton [employer]C Work Phone: [facility] 06-18-2025 08:32-0400 Body height 160.02 cm Griselda Linton [employer]C Work Phone: [facility] 06-18-2025 08:32-0400 Body mass index (BMI) [Ratio] 32.8 kg/m2 Griselda Linton [employer] Work Phone: [facility] 06-18-2025 08:32-0400 Body weight 83.91 kg Griselda Linton [employer] Work Phone: [facility] 06-04-2025 10:57-0400 Diastolic blood pressure 85 mm[Hg] Griselda Linton [employer]C Work Phone: [facility] 06-04-2025 10:57-0400 Systolic blood pressure 126 mm[Hg] Griselda Linton [employer]ER[employer]C Work Phone: [facility] 06-04-2025 10:15-0400 Body height 160.02 cm Griselda Linton [employer]C Work Phone: [facility] 06-04-2025 10:15-0400 Body mass index (BMI) [Ratio] 32.5 kg/m2 Griselda Linton [employer] Work Phone: [facility] 06-04-2025 10:15-0400 Body weight 83.51 kg Griselda Linton [employer] Work Phone: [facility] 05-05-2025 08:53-0400 Body height 160.02 cm Griselda Linton [employer]C Work Phone: [facility] 05-05-2025 08:53-0400 Body mass index (BMI) [Ratio] 31.9 kg/m2 Griselda Linton [employer]C Work Phone: [facility] 05-05-2025 08:53-0400 Body weight 81.81 kg Griselda Linton [employer]C Work Phone: [facility] 05-05-2025 08:53-0400 Diastolic blood pressure 87 mm[Hg] Griselda Linton [employer]C Work Phone: [facility] 05-05-2025 08:53-0400 Systolic blood pressure 144 mm[Hg] Griselda Linton [employer]C Work Phone: [facility] 04-07-2025 08:46-0400 Body height 160.02 cm Griselda Linton [employer]ER[employer]C Work Phone: [facility] 04-07-2025 08:46-0400 Body mass index (BMI) [Ratio] 31.4 kg/m2 Griselda Linton [employer]C Work Phone: [facility] 04-07-2025 08:46-0400 Body weight 80.34 kg Griselda Linton [employer]ER[employer]C Work Phone: [facility] 04-07-2025 08:46-0400 Diastolic blood pressure 88 mm[Hg] Griselda Linton [employer]C Work Phone: [facility] 04-07-2025 08:46-0400 Systolic blood pressure 139 mm[Hg] Griselda Linton [employer]C Work Phone: [facility] 01-25-2025 08:06-0500 Body temperature 97.7 [degF] Vel Mccurdy 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 Work Phone: [facility] 01-25-2025 08:06-0500 Diastolic blood pressure 89 mm[Hg] Vel Mccurdy 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 Work Phone: [facility] 01-25-2025 08:06-0500 Heart rate 96 /min Vel Mccurdy 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 Work Phone: [facility] 01-25-2025 08:06-0500 Respiratory rate 16 /min Vel Mccurdy 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 Work Phone: [facility] 01-25-2025 08:06-0500 SaO2% (BldA) [Mass fraction] 99 % Vel Mccurdy 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 Work Phone: [facility] 01-25-2025 08:06-0500 Systolic blood pressure 130 mm[Hg] Vel Mccurdy 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 Work Phone: [facility] 09-14-2023 12:40-0400 Body height 160 cm Griselda Linton 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 Work Phone: [facility] 09-14-2023 12:40-0400 Body mass index (BMI) [Ratio] 31.89 kg/m2 Griselda Linton 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 Work Phone: [facility] 09-14-2023 12:40-0400 Body weight 81.65 kg Griselda Linton 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 Work Phone: [facility] 09-14-2023 12:40-0400 Diastolic blood pressure 74 mm[Hg] Griselda Linton 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 Work Phone: [facility] 09-14-2023 12:40-0400 Heart rate 82 /min Griselda Linton 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 Work Phone: [facility] 09-14-2023 12:40-0400 Systolic blood pressure 132 mm[Hg] Griselda Linton 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 Work Phone: [facility] 06-01-2023 15:21-0400 Body height 160.02 cm No Primary Care Physician [facility] 06-01-2023 15:21-0400 Body mass index (BMI) [Ratio] 35.6 kg/m2 No Primary Care Physician [facility] 06-01-2023 15:21-0400 Body weight 91.17 kg No Primary Care Physician [facility] 06-01-2023 15:21-0400 Diastolic blood pressure 83 mm[Hg] No Primary Care Physician [facility] 06-01-2023 15:21-0400 Systolic blood pressure 136 mm[Hg] No Primary Care Physician [facility] 05-20-2023 14:10-0400 Body temperature 97.2 [degF] No Primary Care Physician [facility] 05-20-2023 14:10-0400 Diastolic blood pressure 79 mm[Hg] No Primary Care Physician [facility] 05-20-2023 14:10-0400 Heart rate 98 /min No Primary Care Physician [facility] 05-20-2023 14:10-0400 Respiratory rate 16 /min No Primary Care Physician [facility] 05-20-2023 14:10-0400 SaO2% (BldA) [Mass fraction] 98 % No Primary Care Physician [facility] 05-20-2023 14:10-0400 Systolic blood pressure 121 mm[Hg] No Primary Care Physician [facility] 05-19-2023 05:09-0400 Body height 160.02 cm No Primary Care Physician [facility] 05-19-2023 05:09-0400 Body mass index (BMI) [Ratio] 38.2 kg/m2 No Primary Care Physician [facility] 05-19-2023 05:09-0400 Body weight 97.8 kg No Primary Care Physician [facility] 05-15-2023 10:26-0400 Body mass index (BMI) [Ratio] 38.1 kg/m2 No Primary Care Physician [facility] 05-15-2023 10:26-0400 Body weight 97.63 kg No Primary Care Physician [facility] 05-15-2023 10:26-0400 Diastolic blood pressure 83 mm[Hg] No Primary Care Physician [facility] 05-15-2023 10:26-0400 Systolic blood pressure 132 mm[Hg] No Primary Care Physician [facility] 05-11-2023 13:56-0400 Body mass index (BMI) [Ratio] 37.7 kg/m2 No Primary Care Physician [facility] 05-11-2023 13:56-0400 Body weight 96.67 kg No Primary Care Physician [facility] 05-11-2023 13:56-0400 Diastolic blood pressure 78 mm[Hg] No Primary Care Physician [facility] 05-11-2023 13:56-0400 Systolic blood pressure 131 mm[Hg] No Primary Care Physician [facility] 05-08-2023 09:27-0400 Body height 160.02 cm No Primary Care Physician [facility] 05-08-2023 09:26-0400 Body mass index (BMI) [Ratio] 37.7 kg/m2 No Primary Care Physician [facility] 05-08-2023 09:26-0400 Body weight 96.61 kg No Primary Care Physician [facility] 05-08-2023 09:26-0400 Diastolic blood pressure 83 mm[Hg] No Primary Care Physician [facility] 05-08-2023 09:26-0400 Systolic blood pressure 136 mm[Hg] No Primary Care Physician [facility] 05-05-2023 17:03-0400 Diastolic blood pressure 73 mm[Hg] No Primary Care Physician [facility] 05-05-2023 17:03-0400 Heart rate 105 /min No Primary Care Physician [facility] 05-05-2023 17:03-0400 Systolic blood pressure 136 mm[Hg] No Primary Care Physician [facility] 05-05-2023 11:33-0400 SaO2% (BldA) [Mass fraction] 97 % No Primary Care Physician [facility] 05-05-2023 11:30-0400 Body temperature 97 [degF] No Primary Care Physician [facility] 05-05-2023 11:29-0400 Body height 160.02 cm No Primary Care Physician [facility] 05-05-2023 11:29-0400 Body mass index (BMI) [Ratio] 37 kg/m2 No Primary Care Physician [facility] 05-05-2023 11:29-0400 Body weight 94.71 kg No Primary Care Physician [facility] 05-05-2023 10:46-0400 Diastolic blood pressure 78 mm[Hg] No Primary Care Physician [facility] 05-05-2023 10:46-0400 Systolic blood pressure 137 mm[Hg] No Primary Care Physician [facility] 05-05-2023 09:59-0400 Body mass index (BMI) [Ratio] 37.2 kg/m2 No Primary Care Physician [facility] 05-05-2023 09:59-0400 Body weight 95.25 kg No Primary Care Physician [facility] 05-02-2023 18:19-0400 Heart rate 123 /min No Primary Care Physician [facility] 05-02-2023 18:19-0400 SaO2% (BldA) [Mass fraction] 98 % No Primary Care Physician [facility] 05-02-2023 18:18-0400 Diastolic blood pressure 73 mm[Hg] No Primary Care Physician [facility] 05-02-2023 18:18-0400 Systolic blood pressure 138 mm[Hg] No Primary Care Physician [facility] 05-02-2023 18:15-0400 Body temperature 96.8 [degF] No Primary Care Physician [facility] 05-02-2023 18:13-0400 Body mass index (BMI) [Ratio] 37 kg/m2 No Primary Care Physician [facility] 05-02-2023 18:13-0400 Body weight 94.8 kg No Primary Care Physician [facility] 05-02-2023 08:41-0400 Body mass index (BMI) [Ratio] 37.2 kg/m2 No Primary Care Physician [facility] 05-02-2023 08:41-0400 Body weight 95.36 kg No Primary Care Physician [facility] 05-02-2023 08:41-0400 Diastolic blood pressure 84 mm[Hg] No Primary Care Physician [facility] 05-02-2023 08:41-0400 Systolic blood pressure 137 mm[Hg] No Primary Care Physician [facility] 04-30-2023 18:12-0400 Diastolic blood pressure 77 mm[Hg] No Primary Care Physician [facility] 04-30-2023 18:12-0400 Heart rate 110 /min No Primary Care Physician [facility] 04-30-2023 18:12-0400 Systolic blood pressure 129 mm[Hg] No Primary Care Physician [facility] 04-30-2023 17:18-0400 Body mass index (BMI) [Ratio] 37.1 kg/m2 No Primary Care Physician [facility] 04-30-2023 17:18-0400 Body weight 95.1 kg No Primary Care Physician [facility] 04-30-2023 17:00-0400 Body temperature 97.7 [degF] No Primary Care Physician [facility] 04-27-2023 13:32-0400 Body mass index (BMI) [Ratio] 36.5 kg/m2 No Primary Care Physician [facility] 04-27-2023 13:32-0400 Body weight 93.55 kg No Primary Care Physician [facility] 04-27-2023 13:32-0400 Diastolic blood pressure 70 mm[Hg] No Primary Care Physician [facility] 04-27-2023 13:32-0400 Systolic blood pressure 128 mm[Hg] No Primary Care Physician [facility] 04-24-2023 08:43-0400 Body height 160.02 cm No Primary Care Physician [facility] 04-24-2023 08:42-0400 Body mass index (BMI) [Ratio] 36.3 kg/m2 No Primary Care Physician [facility] 04-24-2023 08:42-0400 Body weight 92.98 kg No Primary Care Physician [facility] 04-24-2023 08:42-0400 Diastolic blood pressure 89 mm[Hg] No Primary Care Physician [facility] 04-24-2023 08:42-0400 Systolic blood pressure 130 mm[Hg] No Primary Care Physician [facility] 04-21-2023 11:08-0400 Body height 160.02 cm No Primary Care Physician [facility] 04-21-2023 11:08-0400 Body mass index (BMI) [Ratio] 36.5 kg/m2 No Primary Care Physician [facility] 04-21-2023 11:08-0400 Body weight 93.49 kg No Primary Care Physician [facility] 04-21-2023 11:08-0400 Diastolic blood pressure 80 mm[Hg] No Primary Care Physician [facility] 04-21-2023 11:08-0400 Systolic blood pressure 138 mm[Hg] No Primary Care Physician [facility] 04-19-2023 16:48-0400 Diastolic blood pressure 76 mm[Hg] No Primary Care Physician [facility] 04-19-2023 16:48-0400 Heart rate 114 /min No Primary Care Physician [facility] 04-19-2023 16:48-0400 Systolic blood pressure 140 mm[Hg] No Primary Care Physician [facility] 04-18-2023 15:29-0400 Diastolic blood pressure 60 mm[Hg] No Primary Care Physician [facility] 04-18-2023 15:29-0400 Systolic blood pressure 130 mm[Hg] No Primary Care Physician [facility] 04-18-2023 15:05-0400 Body height 160.02 cm No Primary Care Physician [facility] 04-18-2023 15:04-0400 Body mass index (BMI) [Ratio] 36.5 kg/m2 No Primary Care Physician [facility] 04-18-2023 15:04-0400 Body weight 93.44 kg No Primary Care Physician [facility] 04-14-2023 11:00-0400 Body mass index (BMI) [Ratio] 36.5 kg/m2 No Primary Care Physician [facility] 04-14-2023 11:00-0400 Body weight 93.49 kg No Primary Care Physician [facility] 04-14-2023 11:00-0400 Diastolic blood pressure 76 mm[Hg] No Primary Care Physician [facility] 04-14-2023 11:00-0400 Systolic blood pressure 133 mm[Hg] No Primary Care Physician [facility] 04-11-2023 10:24-0400 Body mass index (BMI) [Ratio] 35.6 kg/m2 No Primary Care Physician [facility] 04-11-2023 10:24-0400 Body weight 91.39 kg No Primary Care Physician [facility] 04-11-2023 10:24-0400 Diastolic blood pressure 81 mm[Hg] No Primary Care Physician [facility] 04-11-2023 10:24-0400 Systolic blood pressure 137 mm[Hg] No Primary Care Physician [facility] 04-04-2023 14:01-0400 Diastolic blood pressure 67 mm[Hg] No Primary Care Physician [facility] 04-04-2023 14:01-0400 Heart rate 104 /min No Primary Care Physician [facility] 04-04-2023 14:01-0400 Systolic blood pressure 132 mm[Hg] No Primary Care Physician [facility] 04-04-2023 13:52-0400 Body temperature 98.9 [degF] No Primary Care Physician [facility] 04-04-2023 13:35-0400 Body mass index (BMI) [Ratio] 35.7 kg/m2 No Primary Care Physician [facility] 04-04-2023 13:35-0400 Body weight 91.62 kg No Primary Care Physician [facility] 04-04-2023 13:28-0400 SaO2% (BldA) [Mass fraction] 98 % No Primary Care Physician [facility] 03-31-2023 16:23-0400 Diastolic blood pressure 81 mm[Hg] No Primary Care Physician [facility] 03-31-2023 16:23-0400 Systolic blood pressure 135 mm[Hg] No Primary Care Physician [facility] 03-31-2023 15:39-0400 Body mass index (BMI) [Ratio] 35.7 kg/m2 No Primary Care Physician [facility] 03-31-2023 15:39-0400 Body weight 91.62 kg No Primary Care Physician [facility] 03-15-2023 14:36-0400 Body mass index (BMI) [Ratio] 34.6 kg/m2 No Primary Care Physician [facility] 03-15-2023 14:36-0400 Body weight 88.67 kg No Primary Care Physician [facility] 03-15-2023 14:36-0400 Diastolic blood pressure 80 mm[Hg] No Primary Care Physician [facility] 03-15-2023 14:36-0400 Systolic blood pressure 134 mm[Hg] No Primary Care Physician [facility] 02-17-2023 15:16-0400 Body mass index (BMI) [Ratio] 33.3 kg/m2 No Primary Care Physician [facility] 02-17-2023 15:16-0400 Body weight 85.5 kg No Primary Care Physician [facility] 02-17-2023 15:16-0400 Diastolic blood pressure 85 mm[Hg] No Primary Care Physician [facility] 02-17-2023 15:16-0400 Systolic blood pressure 136 mm[Hg] No Primary Care Physician [facility] 02-10-2023 18:11-0400 Diastolic blood pressure 53 mm[Hg] No Primary Care Physician [facility] 02-10-2023 18:11-0400 Heart rate 88 /min No Primary Care Physician [facility] 02-10-2023 18:11-0400 Systolic blood pressure 92 mm[Hg] No Primary Care Physician [facility] 02-10-2023 14:50-0400 Diastolic blood pressure 85 mm[Hg] No Primary Care Physician [facility] 02-10-2023 14:50-0400 Heart rate 111 /min No Primary Care Physician [facility] 02-10-2023 14:50-0400 Systolic blood pressure 149 mm[Hg] No Primary Care Physician [facility] 02-10-2023 13:24-0400 SaO2% (BldA) [Mass fraction] 99 % No Primary Care Physician [facility] 02-10-2023 13:12-0400 Body temperature 98.7 [degF] No Primary Care Physician [facility] 02-10-2023 13:00-0400 Body height 160.02 cm No Primary Care Physician [facility] 02-10-2023 13:00-0400 Body mass index (BMI) [Ratio] 33.1 kg/m2 No Primary Care Physician [facility] 02-10-2023 13:00-0400 Body weight 84.82 kg No Primary Care Physician [facility] 02-07-2023 19:49-0400 Diastolic blood pressure 89 mm[Hg] No Primary Care Physician [facility] 02-07-2023 19:49-0400 Heart rate 109 /min No Primary Care Physician [facility] 02-07-2023 19:49-0400 Systolic blood pressure 139 mm[Hg] No Primary Care Physician [facility] 02-07-2023 19:47-0400 Body temperature 98.9 [degF] No Primary Care Physician [facility] 02-07-2023 19:47-0400 SaO2% (BldA) [Mass fraction] 98 % No Primary Care Physician [facility] 02-07-2023 19:07-0400 Body height 160.02 cm No Primary Care Physician [facility] 02-07-2023 19:07-0400 Body mass index (BMI) [Ratio] 32.8 kg/m2 No Primary Care Physician [facility] 02-07-2023 19:07-0400 Body weight 84 kg No Primary Care Physician [facility] 01-25-2023 15:37-0500 Body mass index (BMI) [Ratio] 32.2 kg/m2 No Primary Care Physician [facility] 01-25-2023 15:37-0500 Body weight 82.61 kg No Primary Care Physician [facility] 01-25-2023 15:37-0500 Diastolic blood pressure 80 mm[Hg] No Primary Care Physician [facility] 01-25-2023 15:37-0500 Systolic blood pressure 128 mm[Hg] No Primary Care Physician [facility] 12-23-2022 15:39-0500 Body mass index (BMI) [Ratio] 30.5 kg/m2 No Primary Care Physician [facility] 12-23-2022 15:39-0500 Body weight 78.24 kg No Primary Care Physician [facility] 12-23-2022 15:39-0500 Diastolic blood pressure 88 mm[Hg] No Primary Care Physician [facility] 12-23-2022 15:39-0500 Systolic blood pressure 150 mm[Hg] No Primary Care Physician [facility] 11-24-2022 15:32-0500 Body mass index (BMI) [Ratio] 30.3 kg/m2 No Primary Care Physician [facility] 11-24-2022 15:32-0500 Body weight 77.73 kg No Primary Care Physician [facility] 11-24-2022 15:32-0500 Diastolic blood pressure 81 mm[Hg] No Primary Care Physician [facility] 11-24-2022 15:32-0500 Systolic blood pressure 138 mm[Hg] No Primary Care Physician [facility] 11-08-2022 12:40-0500 Body height 160.02 cm No Primary Care Physician [facility] Work Phone: 11-08-2022 12:40-0500 Body mass index (BMI) [Ratio] 29.5 kg/m2 No Primary Care Physician [facility] 11-08-2022 12:40-0500 Body weight 75.52 kg No Primary Care Physician [facility] 11-08-2022 12:40-0500 Diastolic blood pressure 88 mm[Hg] No Primary Care Physician [facility] 11-08-2022 12:40-0500 Systolic blood pressure 147 mm[Hg] No Primary Care Physician [facility] 11-01-2022 18:11-0500 Body height 160 cm Elsi Jerome Other Phone: [facility] 11-01-2022 18:11-0500 Body temperature 97.88 [degF] Elsi Jerome Other Phone: [facility] 11-01-2022 18:11-0500 Diastolic blood pressure 87 mm[Hg] Elsi Jerome Other Phone: [facility] 11-01-2022 18:11-0500 Heart rate 83 /min Elsi Jerome Other Phone: [facility] 12-13-2022 18:11-0500 Respiratory rate 16 /min Elsi Zarrabi Other Phone: [facility] 11-01-2022 18:11-0500 SaO2% (BldA) [Mass fraction] 100 % Elsi Zarrabi Other Phone: [facility] 11-01-2022 18:11-0500 Systolic blood pressure 133 mm[Hg] Elsi Zarrabi Other Phone: [facility] 06-24-2021 17:00-0400 Diastolic blood pressure 90 mm[Hg] Elsi Zarrabi Other Phone: [facility] 06-24-2021 17:00-0400 Heart rate 89 /min Elsi Zarrabi Other Phone: [facility] 06-24-2021 17:00-0400 Respiratory rate 16 /min Elsi Zarrabi Other Phone: [facility] 06-24-2021 17:00-0400 SaO2% (BldA) [Mass fraction] 96 % Elsi Zarrabi Other Phone: [facility] 06-24-2021 17:00-0400 Systolic blood pressure 148 mm[Hg] Elsi Zarrabi Other Phone: [facility] 06-24-2021 14:19-0400 Body height 160 cm Elsi Zarrabi Other Phone: [facility] 06-24-2021 14:19-0400 Body temperature 98.06 [degF] Elsi Zarrabi Other Phone: [facility] 06-24-2021 14:19-0400 Body weight 73 kg Elsi Zarrabi Other Phone: [facility] Encounters Encounter Date Encounter Type Care Provider Facility Start: 10-01-2025 End: 10-01-2025 ambulatory Griselda L[place] Start: 2025 ambulatory Angelia Tejada lity:[facility] Start: 09-19-2025 End: 09-19-2025 ambulatory Angeliahay Colindres Facility:[facility] Start: 09-18-2025 ambulatory Angelia Tejada lity:[facility] Start: 09-18-2025 End: 09-18-2025 ambulatory Angelia Gamboaosvaldo Facility:[facility] Start: 09-05-2025 End: 09-05-[address] Angelia Colindres MD -[facility] Start: 09-05-2025 End: 09-05-[address] Angelia Colindres MD -[facility] Work Phone: Start: 09-05-2025 End: 09-05-2025 ambulatory Griselda Linton [employer] ST[employer]ER-C Work Phone: [facility] Start: 09-05-2025 End: 09-05-2025 ambulatory Angelia Colindres Facility:[facility] Start: 08-21-2025 End: 08-21-[address] Angelia Colindres MD -[facility] Work Phone: Start: 08-21-2025 End: 08-21-2025 ambulatory Griselda Linton [employer]C Work Phone: [facility] Start: 08-21-2025 End: 08-21-2025 ambulatory Griselda Linton Facility:[facility] Start: 07-29-2025 End: 07-29-[address] Angelia Colindres MD -[facility] Work Phone: Start: 07-29-2025 End: 07-29-2025 ambulatory Griselda Linton [employer]C Work Phone: [facility] Start: 07-03-2025 End: 07-03-2025 ambulatory Griselda Linton [employer]C Work Phone: [facility] Start: 07-03-2025 End: 07-03-[address] Angelia Colindres MD -[facility] Work Phone: Start: 06-20-2025 End: 06-20-2025 ambulatory ANGELIA COLINDRES [facility] Start: 06-18-2025 End: 06-18-2025 ambulatory Griselda Linton [employer]C Work Phone: -[facility] Start: 06-18-2025 End: 06-18-[address] Flores Vasquez DO -[facility] Work Phone: Start: 06-18-2025 End: 06-18-[address] Flores Vasquez DO -[facility] Work Phone: Start: 06-18-2025 End: 06-18-2025 ambulatory Griselda Linton [employer]C Work Phone: -[facility] Start: 06-18-2025 End: 06-18-2025 ambulatory Flores Vasquez Facility:[facility] Start: 06-04-2025 End: 06-04-[address] Angelia Colindres MD -[facility] Work Phone: Start: 06-04-2025 End: 06-04-2025 ambulatory Griselda Linton [employer]C Work Phone: -[facility] Start: 05-05-2025 End: 05-05-[address] Angelia Colindres MD -[facility] Work Phone: Start: 05-05-2025 End: 05-05-2025 ambulatory Griselda Linton [employer] ST[employer]ER-C Work Phone: [facility] Work Phone: Start: 04-07-2025 End: 04-07-2025 Patient encounter procedure Enid Reyez CNM -Lab [facility] Start: 04-07-2025 End: 04-07-2025 Patient encounter procedure Enid Reyez CNM -[facility] Work Phone: Start: 04-07-2025 End: 04-07-2025 ambulatory Griselda Linton [employer]C Work Phone: [facility] Work Phone: Start: 04-07-2025 End: 04-07-2025 ambulatory Griselda Linton Facility:[facility] Start: 03-28-2025 Non-patient / Non-visit Gina aleman RN -[facility] Work Phone: Start: 03-28-2025 ambulatory Gina Staley Facility [facility] Start: 01-25-2025 End: 01-25-2025 Patient encounter procedure Vel Mccurdy 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 Work Phone: [facility] Comment on above: Non-recurrent acute serous otitis media of right ear (Primary Dx) Start: 01-25-2025 End: 01-25-2025 ambulatory [facility] Start: 01-19-2025 End: 01-19-2025 Emergency department patient visit PHYSICIAN [facility] Start: 05-16-2024 End: 05-16-2024 Office outpatient visit 15 minutes Griselda Linton 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 Work Phone: [facility] Comment on above: Generalized anxiety disorder with panic attacks (Primary Dx); Low iron; Pure hypercholesterolemia; Vitamin D deficiency Start: 05-16-2024 End: 05-16-2024 ambulatory [facility] Start: 11-08-2023 End: 11-08-2023 Office outpatient visit 25 minutes Griselda Linton 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 Work Phone: [facility] Comment on above: Nasal congestion (Pr imary Dx); Acute non-recurrent maxillary sinusitis; Otitis of right ear; Anxiety; Low iron Start: 11-08-2023 End: 11-08-2023 ambulatory [facility] Start: 09-21-2023 End: 09-21-[address] [facility] Start: 09-14-2023 End: 09-14-2023 Office outpatient visit 25 minutes Griselda Linton 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 Work Phone: [facility] Comment on above: Generalized anxiety disorder with panic attacks (Primary Dx); Dizziness; Seasonal allergies; Low iron Start: 09-14-2023 End: 09-14-2023 ambulatory GRISELDA Joseph [facility] Start: 06-01-2023 End: 06-01-2023 No Primary Care Physician [facility] Work Phone: Start: 05-20-2023 No Primary Car e Physician [facility] Start: 05-19-2023 No Primary Car e Physician [facility] Start: 05-19-2023 End: 05-20-2023 Evaluation and management of inpatient No Primary Care Physician [facility] Work Phone: Start: 05-19-2023 End: 05-20-2023 No Primary Care Physician [facility] Work Phone: Start: 05-15-2023 End: 05-15-2023 No Primary Care Physician [facility] Work Phone: Start: 05-11-2023 End: 05-11-2023 No Primary Care Physician [facility] Work Phone: Start: 05-11-2023 End: 05-11-2023 No Primary Care Physician [facility] Work Phone: Start: 05-08-2023 End: 05-08-2023 ambulatory No Primary Care Physician [facility] Work Phone: Start: 05-08-2023 End: 05-08-2023 Patient encounter procedure No Primary Care Physician [facility] Start: 05-08-2023 End: 05-08-2023 No Primary Care Physician [facility] Work Phone: Start: 05-05-2023 Non-patient / Non-visit No [facility] Physician [facility] Start: 05-05-2023 No Primary Car e Physician [facility] Start: 05-05-2023 End: 05-05-2023 ambulatory No Primary Care Physician [facility] Work Phone: Start: 05-05-2023 End: 05-05-2023 Patient encounter procedure No Primary Care Physician [facility] Start: 05-05-2023 End: 05-05-2023 No Primary Care Physician [facility] Work Phone: Start: 05-02-2023 End: 05-02-2023 Patient encounter procedure No Primary Care Physician [facility] Out[facility] Start: 05-02-2023 End: 05-02-2023 No Primary Care Physician [facility] Work Phone: Start: 05-02-2023 End: 05-02-2023 Patient encounter procedure No Primary Care Physician [facility] Start: 05-02-2023 End: 05-02-2023 No Primary Care Physician [facility] Work Phone: Start: 05-01-2023 Registered Recurring No Primar y Care Physician [facility] Start: 05-01-2023 No Primary Car e Physician [facility] Work Phone: Start: 04-30-2023 Non-patient / Non-visit No Yael sumi Care Physician [facility] Start: 04-30-2023 No Primary Car e Physician [facility] Start: 04-30-2023 End: 04-30-2023 Patient encounter procedure No Primary Care Physician [facility] Start: 04-30-2023 End: 04-30-2023 No Primary Care Physician [facility] Work Phone: Start: 04-27-2023 End: 04-27-2023 Patient encounter procedure No Primary Care Physician [facility] Start: 04-27-2023 End: 04-27-2023 No Primary Care Physician [facility] Work Phone: Start: 04-26-2023 End: 04-26-2023 Patient encounter procedure No Primary Care Physician [facility]-Ultrasound, [facility] Start: 04-26-2023 End: 04-26-2023 No Primary Care Physician [facility]-Ultrasound, [facility] Work Phone: Start: 04-24-2023 End: 04-24-2023 Patient encounter procedure No Primary Care Physician [facility] Start: 04-24-2023 End: 04-24-2023 No Primary Care Physician [facility] Work Phone: Start: 04-21-2023 End: 04-21-2023 ambulatory No Primary Care Physician [facility] Work Phone: Start: 04-21-2023 End: 04-21-2023 Patient encounter procedure No Primary Care Physician [facility]-Ultrasound, [facility] Start: 04-21-2023 End: 04-21-2023 No Primary Care Physician [facility]-Ultrasound, [facility] Work Phone: Start: 04-21-2023 End: 04-21-2023 Patient encounter procedure No Primary Care Physician [facility] Start: 04-21-2023 End: 04-21-2023 No Primary Care Physician [facility] Work Phone: Start: 04-19-2023 Non-patient / Non-visit No Yael sumi Care Physician [facility] Start: 04-19-2023 No Primary Car e Physician [facility] Start: 04-19-2023 End: 04-19-2023 ambulatory No Primary Care Physician [facility] Work Phone: Start: 04-19-2023 End: 04-19-2023 Patient encounter procedure No Primary Care Physician [facility] Outpatients Start: 04-19-2023 End: 04-19-2023 No Primary Care Physician [facility] Work Phone: Start: 04-18-2023 Non-patient / Non-visit No Yael sumi Care Physician [facility] Start: 04-18-2023 No Primary Car e Physician [facility] Start: 04-18-2023 End: 04-18-2023 ambulatory No Primary Care Physician [facility] Work Phone: Start: 04-18-2023 End: 04-18-2023 Patient encounter procedure No Primary Care Physician [facility] Start: 04-18-2023 End: 04-18-2023 No Primary Care Physician [facility], Outpatients Work Phone: Start: 04-14-2023 End: 04-14-2023 ambulatory No Primary Care Physician [facility] Work Phone: Start: 04-14-2023 End: 04-14-2023 Patient encounter procedure No Primary Care Physician [facility] Start: 04-14-2023 End: 04-14-2023 No Primary Care Physician [facility] Work Phone: Start: 04-11-2023 End: 04-11-2023 ambulatory No Primary Care Physician [facility] Work Phone: Start: 04-11-2023 End: 04-11-2023 Patient encounter procedure No Primary Care Physician [facility]-Ultrasound, [facility] Start: 04-11-2023 End: 04-11-2023 No Primary Care Physician [facility] Work Phone: Start: 04-04-2023 Non-patient / Non-visit No Yael sumi Care Physician [facility] Start: 04-04-2023 End: 04-04-2023 Patient encounter procedure No Primary Care Physician [facility] Outpatients Start: 04-04-2023 End: 04-04-2023 No Primary Care Physician [facility] Start: 03-31-2023 End: 03-31-2023 Patient encounter procedure No Primary Care Physician [facility] Start: 03-31-2023 End: 03-31-2023 No Primary Care Physician [facility] Work Phone: Start: 03-15-2023 End: 03-15-2023 ambulatory No Primary Care Physician [facility] Work Phone: Start: 03-15-2023 End: 03-15-2023 Patient encounter procedure No Primary Care Physician [facility] Start: 03-15-2023 End: 03-15-2023 No Primary Care Physician [facility] Work Phone: Start: 03-11-2023 ambulatory ANGELIAHAY GARVEY [facility] Ambulatory Start: 02-17-2023 End: 02-17-2023 Patient encounter procedure No Primary Care Physician [facility] Start: 02-17-2023 End: 02-17-2023 No Primary Care Physician [facility] Work Phone: Start: 02-10-2023 Non-patient / Non-visit No Yael sumi Care Physician [facility] Start: 02-10-2023 No Primary Car e Physician [facility] Start: 02-10-2023 End: 02-10-2023 ambulatory No Primary Care Physician [facility] Work Phone: Start: 02-10-2023 End: 02-10-2023 Patient encounter procedure No Primary Care Physician [facility] Outpatients Start: 02-10-2023 End: 02-10-2023 No Primary Care Physician [facility] Work Phone: Start: 02-07-2023 Non-patient / Non-visit No Yael sumi Care Physician [facility] Start: 02-07-2023 End: 02-07-2023 ambulatory No Primary Care Physician [facility] Work Phone: Start: 02-07-2023 End: 02-07-2023 Patient encounter procedure No Primary Care Physician [facility] Start: 02-07-2023 End: 02-07-2023 No Primary Care Physician [facility] Work Phone: Start: 01-25-2023 End: 01-25-2023 Patient encounter procedure No Primary Care Physician [facility] Start: 01-25-2023 End: 01-25-2023 No Primary Care Physician [facility] Work Phone: Start: 12-23-2022 End: 12-23-2022 Patient encounter procedure No Primary Care Physician [facility] Start: 11-24-2022 End: 11-24-2022 Patient encounter procedure No Primary Care Physician [facility] Start: 11-08-2022 End: 11-08-2022 ambulatory No Primary Care Physician [facility] Work Phone: Start: 11-08-2022 End: 11-08-2022 Patient encounter procedure No Primary Care Physician [facility], Specimen Start: 11-08-2022 End: 11-08-2022 Patient encounter procedure No Primary Care Physician [facility] Start: 11-01-2022 End: 11-01-2022 Emergency department patient visit [facility] Start: 10-27-2022 End: 10-27-2022 ambulatory [facility] Work Phone: Start: 10-27-2022 End: 10-27-2022 Patient encounter procedure [facility] Start: 12-05-2021 End: 01-16-2022 Emergency department patient visit PHYSICIAN NO [facility] Start: 06-24-2021 End: 06-24-2021 Emergency department patient visit Best [facility] Emergency 02 Start: 08-07-2017 End: 08-07-2017 Emergency department patient visit [facility] Facility:[place] Procedures Date Procedure Procedure Detail Performing Clinician Start: 08-21-2025 Serologic test for syphilis Griselda Linton [employer] Work Phone: Start: 04-07-2025 Urine culture Griselda king [employer] Work Phone: Start: 04-07-2025 Hepatitis C antibody measurement Griselda Linton [employer] Work Phone: Comment on above: Reactive: Presumptiv e evidence of antibodies to HCV. Follow CDC recommendations for supplemental testing.Non-Reactive: Antibodies to HCV were not detected; does not exclude the possibility of exposure to HCVReactive Results are presumptive evidence of antibodies to HCV. Follow CDC recommendations for supplemental testing.Order confirmation testing: HCV Quant by PCR testing - HCVPCR #[id number] Non Reactive: < 0.8 Equivocal: >/= 0.8 to < 1.0 Reactive: >/= 1.0The CDC requires that a reactive/equivocal HCV antibody result be sent out for confirmation. HCV Quant by PCR testing. Start: 04-07-2025 Rubella IgG measurement Griselda Linton [employer] Work Phone: Comment on above: Antibody Result: Int erpretationNon-Reactive: Non- ImmuneReactive: ImmuneThe following results were obtained with the [employer] Rubella IgG assay. Results from assays of other manufacturers cannot be used interchangeably. Start: 04-07-2025 Serologic test for syphilis Griselda Linton [employer] Work Phone: Start: 09-21-2023 CBC W Auto Different ial panel - Blood GRISELDA LINTON Start: 09-21-2023 Comprehensive metabo lic 2000 panel - Serum or Plasma GRISELDA LINTON Start: 09-21-2023 Cyanocobalamin vitam in b-12 GRISELDA LINTON Start: 09-21-2023 Ferritin [Mass/volum e] in Serum or Plasma GRISELDA LINTON Start: 09-21-2023 FOLATE GRISELDA LINTON Start: 09-21-2023 Hemoglobin A1c/Hemoglobin.total in Blood GRISELDA LINTON Start: 09-21-2023 IRON AND TIBC GRISELDA King Start: 09-21-2023 Lipid panel GRISELDA TIERNEYLEY Start: 09-21-2023 TSH WITH REFLEX TO F REE T4 IF ABNORMAL GRISELDA LINTON Start: 09-21-2023 VITAMIN D 25-HYDROXY,TOTAL GRISELDA LINTON Start: 09-21-2023 Lipid 1996 panel - S mega or Plasma Grisedla Linton APRN-YARN POLISHING MACHINE OPERATOR Work Phone: Start: 09-14-2023 ECG 12-LEAD GRISELDA LINTON Start: 09-14-2023 Ecg routine ecg w/le ast 12 lds w/i&r Griselda Opal August DUMONT-YARN POLISHING MACHINE OPERATOR Work Phone: Start: 05-11-2023 Ultrasound scan for growth No Primary Care Physician Start: 05-11-2023 No Primary Care Physician Start: 04-26-2023 Ultrasonography for biophysical profile without non-stress testing No Primary Care Physician Start: 04-21-2023 Ultrasonography for biophysical profile without non-stress testing No Primary Care Physician Start: 04-11-2023 Ultrasound scan for growth No Primary Care Physician Start: 04-04-2023 Urine culture No Primar y Care Physician Start: 03-02-2023 H/O: section History of section Griselda ANDERSON Work Phone: Start: 10-27-2022 Transvaginal obstetr ic ultrasonography Start: 06-24-2021 End: 06-24-2021 EKG impression Best [facility] Start: 02-22-2021 Follow-up visit Start: 02-04-2021 Microscopic observat ion [Identifier] in Cervix by Cyto stain Griselda Linton 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 Work Phone: Start: 12-02-2020 Follow-up visit Cytopathology proced ure, preparation of smear, genital source No Primary Care Physician H/O: section History of delivery No Primary Care Physician Comment on above: history of 2 cesarea n sections. first was for unknown reason per patient and 2nd was repeat section for srom at 35 weeks. wants to discuss . chance of success 50% H/O: section History of delivery, currently Griselda Linton [employer] Work Phone: Comment on above: x3; Desires rpt csec x3; Desires rpt csec with SM possible BS x3;rpt csec with SM / possible BS H/O: section History of delivery, currently [facility] H/O: section History of delivery, currently Dr. Angelia Colindres MD H/O: section History of delivery, currently Dr. Angelia Colindres MD H/O: section History of delivery, currently Dr. Flores Vasquez DO H/O: section History of delivery, currently Dr. Angelia Colindres MD H/O: section History of delivery, currently Dr. Angelia Colindres MD H/O: section History of delivery, currently Dr. Angelia Colindres MD H/O: section History of delivery, currently Dr. Angelia Colindres MD Microscopic observat ion [Identifier] in Unspecified specimen by Gram stain No Primary Care Physician Urine culture No Primary Car e Physician Urine culture No Primary Car e Physician Urine culture No Primary Car e Physician Plan of Treatment Date Care Activity Detail Author Start: 2047 Zoster Vaccines (1 of 2) Zoster Vaccines (1 of 2) [facility] Start: 04-18-2033 DTaP/Tdap/Td Vaccines (11 - Td or Tdap) DTaP/Tdap/Td Vaccines (11 - Td or Tdap) [facility] Start: 09-21-2028 Lipid panel Lipid Panel [facility] Start: 11-05-2025 ambulatory Ambulatory Facility:[facility] Start: 08-21-2025 CBC W Auto Differential panel - Blood [facility] Start: 08-21-2025 Measurement of glucose 2 hours after glucose challenge for glucose tolerance test [facility] Start: 08-21-2025 Serologic test for syphilis [facility] Start: 08-21-2025 [facility] Start: 06-18-2025 [facility] Start: 04-07-2025 CBC W Auto Differential panel - Blood [facility] Start: 04-07-2025 Comprehensive metabolic 2000 panel - Serum or Plasma [facility] Start: 04-07-2025 Hemoglobin A1c/Hemoglobin.total in Blood [facility] Start: 04-07-2025 Hepatitis C antibody measurement [facility] Start: 04-07-2025 Rubella IgG measurement [facility] Start: 04-07-2025 Serologic test for syphilis [facility] Start: 04-07-2025 [facility] Start: 11-15-2024 End: 05-16-2025 25-hydroxyvitamin D3 [Mass/volume] in Serum or Plasma Vitamin D 25-Hydroxy,Total (for eval of Vitamin D levels) Lab Routine Vitamin D deficiency Expected: 11/15/2024 (Approximate), Expires: 05/16/2025 [facility] Work Phone: Comment on above: Expected: 11/15/2024 (Approximate), Expi res: 05/16/2025 Start: 11-15-2024 End: 05-16-2025 CBC W Auto Differential panel - Blood CBC and Auto Differential Lab Routine Pure hypercholesterolemia Expected: 11/15/2024 (Approximate), Expires: 05/16/2025 [facility] Work Phone: Comment on above: Expected: 11/15/2024 (Approximate), Expi res: 05/16/2025 Start: 11-15-2024 End: 05-16-2025 Cobalamin (Vitamin B12) [Mass/volume] in Serum or Plasma Vitamin B12 Lab Routine Low iron Expected: 11/15/2024 (Approximate), Expires: 05/16/2025 [facility] Work Phone: Comment on above: Expected: 11/15/2024 (Approximate), Expi res: 05/16/2025 Start: 11-15-2024 End: 05-16-2025 Comprehensive metabolic 2000 panel - Serum or Plasma Comprehensive Metabolic Panel Lab Routine Pure hypercholesterolemia Expected: 11/15/2024 (Approximate), Expires: 05/16/2025 [facility] Work Phone: Comment on above: Expected: 11/15/2024 (Approximate), Expi res: 05/16/2025 Start: 11-15-2024 End: 05-16-2025 Ferritin [Mass/volume] in Serum or Plasma Ferritin Lab Routine Low iron Expected: 11/15/2024 (Approximate), Expires: 05/16/2025 [facility] Work Phone: Comment on above: Expected: 11/15/2024 (Approximate), Expi res: 05/16/2025 Start: 11-15-2024 End: 05-16-2025 Hemoglobin A1c/Hemoglobin.total in Blood Hemoglobin A1C Lab Routine Pure hypercholesterolemia Expected: 11/15/2024 (Approximate), Expires: 05/16/2025 [facility] Work Phone: Comment on above: Expected: 11/15/2024 (Approximate), Expi res: 05/16/2025 Start: 11-15-2024 End: 05-16-2025 Iron and Iron binding capacity panel - Serum or Plasma Iron and TIBC Lab Routine Low iron Expected: 11/15/2024 (Approximate), Expires: 05/16/2025 [facility] Work Phone: Comment on above: Expected: 11/15/2024 (Approximate), Expi res: 05/16/2025 Start: 11-15-2024 End: 05-16-2025 Lipid 1996 panel - Serum or Plasma Lipid Panel Lab Routine Pure hypercholesterolemia Expected: 11/15/2024 (Approximate), Expires: 05/16/2025 [facility] Work Phone: Comment on above: Expected: 11/15/2024 (Approximate), Expi res: 05/16/2025 Start: 11-15-2024 End: 05-16-2025 Parathyrin.intact [Mass/volume] in Serum or Plasma Parathyroid Hormone, Intact Lab Routine Vitamin D deficiency Expected: 11/15/2024 (Approximate), Expires: 05/16/2025 [facility] Work Phone: Comment on above: Expected: 11/15/2024 (Approximate), Expi res: 05/16/2025 Start: 11-15-2024 End: 05-16-2025 TSH with reflex to Free T4 if abnormal TSH with reflex to Free T4 if abnormal Lab Routine Pure hypercholesterolemia Expected: 11/15/2024 (Approximate), Expires: 05/16/2025 [facility] Work Phone: Comment on above: Expected: 11/15/2024 (Approximate), Expi res: 05/16/2025 Start: 07-21-2024 COVID-19 Vaccine ( season) COVID-19 Vaccine () [facility] Start: 07-21-2024 Influenza vaccination [facility] Start: 05-16-2024 End: 05-16-2025 25-hydroxyvitamin D3 [Mass/volume] in Serum or Plasma Vitamin D 25-Hydroxy,Total (for eval of Vitamin D levels) Lab Routine Vitamin D deficiency Expected: 05/16/2024 (Approximate), Expires: 05/16/2025 [facility] Work Phone: Comment on above: Expected: 05/16/2024 (Approximate), Expi res: 05/16/2025 Start: 05-16-2024 End: 05-16-2025 Parathyrin.intact [Mass/volume] in Serum or Plasma Parathyroid Hormone, Intact Lab Routine Vitamin D deficiency Expected: 05/16/2024 (Approximate), Expires: 05/16/2025 [facility] Work Phone: Comment on above: Expected: 05/16/2024 (Approximate), Expi res: 05/16/2025 Start: 05-09-2024 End: 11-08-2024 CBC W Auto Differential panel - Blood CBC and Auto Differential Lab Routine Anxiety Low iron Expected: 05/09/2024 (Approximate), Expires: 11/08/2024 [facility] Work Phone: Comment on above: Expected: 05/09/2024 (Approximate), Expi res: 11/08/2024 Start: 05-09-2024 End: 11-08-2024 Cobalamin (Vitamin B12) [Mass/volume] in Serum or Plasma Vitamin B12 Lab Routine Anxiety Low iron Expected: 05/09/2024 (Approximate), Expires: 11/08/2024 [facility] Work Phone: Comment on above: Expected: 05/09/2024 (Approximate), Expi res: 11/08/2024 Start: 05-09-2024 End: 11-08-2024 Comprehensive metabolic 2000 panel - Serum or Plasma Comprehensive Metabolic Panel Lab Routine Anxiety Low iron Expected: 05/09/2024 (Approximate), Expires: 11/08/2024 [facility] Service [facility] Work Phone: Comment on above: Expected: 05/09/2024 (Approximate), Expi res: 11/08/2024 Start: 05-09-2024 End: 11-08-2024 Ferritin [Mass/volume] in Serum or Plasma Ferritin Lab Routine Anxiety Low iron Expected: 05/09/2024 (Approximate), Expires: 11/08/2024 [facility] Work Phone: Comment on above: Expected: 05/09/2024 (Approximate), Expi res: 11/08/2024 Start: 05-09-2024 End: 11-08-2024 Folate [Mass/volume] in Serum or Plasma Folate Lab Routine Anxiety Low iron Expected: 05/09/2024 (Approximate), Expires: 11/08/2024 [facility] Work Phone: Comment on above: Expected: 05/09/2024 (Approximate), Expi res: 11/08/2024 Start: 05-09-2024 End: 11-08-2024 Iron and Iron binding capacity panel - Serum or Plasma Iron and TIBC Lab Routine Anxiety Low iron Expected: 05/09/2024 (Approximate), Expires: 11/08/2024 [facility] Work Phone: Comment on above: Expected: 05/09/2024 (Approximate), Expi res: 11/08/2024 Start: 05-09-2024 End: 11-08-2024 TSH with reflex to Free T4 if abnormal TSH with reflex to Free T4 if abnormal Lab Routine Anxiety Low iron Expected: 05/09/2024 (Approximate), Expires: 11/08/2024 [facility] Work Phone: Comment on above: Expected: 05/09/2024 (Approximate), Expi res: 11/08/2024 Start: 02-05-2024 Screening for malignant neoplasm of cervix [facility] Start: 10-18-2023 End: 10-18-2023 Patient encounter procedure 10/18/2023 8:20 AM EST Office Visit [facility] [address] [place] [id number] Griselda Linton, 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 [address] [place] [address] [facility] Start: 09-14-2023 End: 09-14-2024 25-hydroxyvitamin D3 [Mass/volume] in Serum or Plasma Vitamin D 25-Hydroxy,Total (for eval of Vitamin D levels) Lab Routine Generalized anxiety disorder with panic attacks Dizziness Seasonal allergies Low iron Expected: 09/14/2023 (Approximate), Expires: 09/14/2024 [facility] Work Phone: Comment on above: Expected: 09/14/2023 (Approximate), Expi res: 09/14/2024 Start: 09-14-2023 End: 09-14-2024 CBC W Auto Differential panel - Blood CBC and Auto Differential Lab Routine Generalized anxiety disorder with panic attacks Dizziness Seasonal allergies Low iron Expected: 09/14/2023 (Approximate), Expires: 09/14/2024 [facility] Work Phone: Comment on above: Expected: 09/14/2023 (Approximate), Expi res: 09/14/2024 Start: 09-14-2023 End: 09-14-2024 Cobalamin (Vitamin B12) [Mass/volume] in Serum or Plasma Vitamin B12 Lab Routine Generalized anxiety disorder with panic attacks Dizziness Seasonal allergies Low iron Expected: 09/14/2023 (Approximate), Expires: 09/14/2024 [facility] Work Phone: Comment on above: Expected: 09/14/2023 (Approximate), Expi res: 09/14/2024 Start: 09-14-2023 End: 09-14-2024 Comprehensive metabolic 2000 panel - Serum or Plasma Comprehensive Metabolic Panel Lab Routine Generalized anxiety disorder with panic attacks Dizziness Seasonal allergies Low iron Expected: 09/14/2023 (Approximate), Expires: 09/14/2024 [facility] Work Phone: Comment on above: Expected: 09/14/2023 (Approximate), Expi res: 09/14/2024 Start: 09-14-2023 End: 09-14-2024 Ferritin [Mass/volume] in Serum or Plasma Ferritin Lab Routine Generalized anxiety disorder with panic attacks Dizziness Seasonal allergies Low iron Expected: 09/14/2023 (Approximate), Expires: 09/14/2024 [facility] Work Phone: Comment on above: Expected: 09/14/2023 (Approximate), Expi res: 09/14/2024 Start: 09-14-2023 End: 09-14-2024 Folate [Mass/volume] in Serum or Plasma Folate Lab Routine Generalized anxiety disorder with panic attacks Dizziness Seasonal allergies Low iron Expected: 09/14/2023 (Approximate), Expires: 09/14/2024 [facility] Work Phone: Comment on above: Expected: 09/14/2023 (Approximate), Expi res: 09/14/2024 Start: 09-14-2023 End: 09-14-2024 Hemoglobin A1c/Hemoglobin.total in Blood Hemoglobin A1C Lab Routine Generalized anxiety disorder with panic attacks Dizziness Seasonal allergies Low iron Expected: 09/14/2023 (Approximate), Expires: 09/14/2024 [facility] Service [facility] Work Phone: Comment on above: Expected: 09/14/2023 (Approximate), Expi res: 09/14/2024 Start: 09-14-2023 End: 09-14-2024 Iron and Iron binding capacity panel - Serum or Plasma Iron and TIBC Lab Routine Generalized anxiety disorder with panic attacks Dizziness Seasonal allergies Low iron Expected: 09/14/2023 (Approximate), Expires: 09/14/2024 [facility] Work Phone: Comment on above: Expected: 09/14/2023 (Approximate), Expi res: 09/14/2024 Start: 09-14-2023 End: 09-14-2024 Lipid 1996 panel - Serum or Plasma Lipid Panel Lab Routine Generalized anxiety disorder with panic attacks Dizziness Seasonal allergies Low iron Expected: 09/14/2023 (Approximate), Expires: 09/14/2024 [facility] Work Phone: Comment on above: Expected: 09/14/2023 (Approximate), Expi res: 09/14/2024 Start: 09-14-2023 End: 09-14-2024 TSH with reflex to Free T4 if abnormal TSH with reflex to Free T4 if abnormal Lab Routine Generalized anxiety disorder with panic attacks Dizziness Seasonal allergies Low iron Expected: 09/14/2023 (Approximate), Expires: 09/14/2024 [facility] Work Phone: Comment on above: Expected: 09/14/2023 (Approximate), Expi res: 09/14/2024 Start: 07-21-2023 COVID-19 Vaccine () COVID-19 Vaccine () [facility] Start: 07-21-2023 Influenza vaccination Influenza Vaccine (#1) [facility] Start: 05-20-2023 Patient discharge [facility] Start: 05-20-2023 Application of abdominal corset [facility] Start: 05-20-2023 Application of abdominal corset [facility] Start: 05-19-2023 Administration of medication [facility] Start: 05-19-2023 Ambulation therapy management [facility] Start: 05-19-2023 Application of device [facility] Start: 05-19-2023 End: 05-19-2023 Application of intermittent pneumatic compression device [facility] Start: 05-19-2023 Assessment of risk of venous thromboembolism [facility] Start: 05-19-2023 Catheterization of vein [facility] Start: 05-19-2023 Deep breathing and coughing exercises [facility] Start: 05-19-2023 Exercises [facility] Start: 05-19-2023 Measuring intake and output [facility] Start: 05-19-2023 Notification of physician [facility] Start: 05-19-2023 Procedure discontinued [facility] Start: 05-19-2023 Provision of activity privileges [facility] Start: 05-19-2023 Vital signs measurements [facility] Start: 05-19-2023 Wound care [facility] Start: 05-19-2023 [facility] Start: 05-19-2023 Application of abdominal corset [facility] Start: 05-19-2023 section [facility] Start: 05-19-2023 Admission procedure [facility] Start: 05-19-2023 [facility] Start: 05-05-2023 Nonstress test [facility] Start: 05-05-2023 Insertion of catheter into peripheral vein [facility] Start: 05-05-2023 Obstetric monitoring [facility] Start: 05-05-2023 Vital signs measurements [facility] Start: 05-05-2023 [facility] Start: 05-05-2023 Patient discharge [facility] Start: 05-02-2023 Nonstress test [facility] Start: 05-02-2023 Obstetric monitoring [facility] Start: 05-02-2023 Vital signs measurements [facility] Start: 05-02-2023 [facility] Start: 05-02-2023 Patient discharge [facility] Start: 04-30-2023 Nonstress test [facility] Start: 04-30-2023 Obstetric monitoring [facility] Start: 04-30-2023 Vital signs measurements [facility] Start: 04-30-2023 [facility] Start: 04-30-2023 Patient discharge [facility] Start: 04-19-2023 [facility] Start: 04-18-2023 [facility] Start: 02-10-2023 Nonstress test [facility] Start: 02-10-2023 Obstetric monitoring [facility] Start: 02-10-2023 Vital signs measurements [facility] Start: 02-10-2023 [facility] Start: 02-10-2023 Patient discharge [facility] Start: 02-07-2023 Nonstress test [facility] Start: 02-07-2023 Obstetric monitoring [facility] Start: 02-07-2023 Vital signs measurements [facility] Start: 02-07-2023 [facility] Start: 02-07-2023 Patient discharge [facility] Start: 12-23-2022 Patient referral [facility] Work Phone: Start: 2018 Screening for malignant neoplasm of cervix HPV/Cotest [facility] Start: 2015 Hepatitis C screening Hepatitis C Screening [facility] Start: 2012 HPV Vaccines (1 - 3-dose series) HPV Vaccines (1 - 3-dose series) [facility] Start: 2008 HPV Vaccines (1 - 2-dose series) HPV Vaccines (1 - 2-dose series) [facility] Start: 03-22-1998 COVID-19 Vaccine (#1) COVID-19 Vaccine (#1) [facility] Start: 1997 Lipid panel Lipid Panel [facility] Start: 1997 Yearly Adult Physical Yearly Adult Physical [facility] Alanine aminotransfe rase [Enzymatic activity/volume] in Serum or Plasma [facility] Albumin [Mass/volume ] in Serum or Plasma [facility] Alkaline phosphatase [Enzymatic activity/volume] in Serum or Plasma [facility] Anion gap in Serum o r Plasma [facility] Bilirubin, total measurement [facility] BUN/Creatinine ratio [facility] Calcium [Mass/volume ] in Serum or Plasma [facility] Carbon dioxide, tota l [Moles/volume] in Central venous blood [facility] CBC W Auto Different ial panel - Blood [facility] Work Phone: CBC W Auto Different ial panel - Blood [facility] Chlamydia deoxyribonucleic acid detection [facility] Collect duration Time Ur [facility] Creatinine [Mass/vol ume] in Serum or Plasma [facility] Erythrocyte mean corpuscular volume determination [facility] Erythrocyte mean corpuscular volume determination [facility] Biophysical profile panel US [facility] Biophysical profile panel [facility] Glucose [Mass/volume ] in Serum or Plasma [facility] Hematocrit [Volume Fraction] of Blood [facility] Hematocrit [Volume Fraction] of Blood [facility] Hemoglobin [Mass/vol ume] in Blood [facility] Hemoglobin [Mass/vol ume] in Blood [facility] Hepatitis B surface antigen measurement [facility] Work Phone: Hepatitis B virus surface Ag [Presence] in Serum [facility] Hepatitis C antibody measurement [facility] Work Phone: HIV 1+2 Ab+HIV1 p24 Ag [Presence] in Serum or Plasma by Immunoassay [facility] Work Phone: Leukocytes [#/volume ] in Blood [facility] Leukocytes [#/volume ] in Blood [facility] Mean corpuscular hemoglobin concentration determination [facility] Mean corpuscular hemoglobin concentration determination [facility] Mean corpuscular hemoglobin determination [facility] Mean corpuscular hemoglobin determination [facility] Measurement of gluco se 2 hours after glucose challenge for glucose tolerance test [facility] Measurement of renal function [facility] Neutrophil count [facility] Neutrophil count [facility] Neutrophil percent differential count [facility] Neutrophil percent differential count [facility] Patient Education [facility] Work Phone: Patient referral [facility] Work Phone: Platelets [#/volume] in Blood [facility] Platelets [#/volume] in Blood [facility] Potassium measurement [facility] Protein [Mass/time] in 24 hour Urine [facility] Protein [Mass/volume ] in 24 hour Urine [facility] Protein measurement, urine, quantitative 24 hour [facility] Protein/Creatinine [Ratio] in Urine [facility] Red blood cell count [facility] Red blood cell count [facility] Red cell distributio n width determination [facility] Red cell distributio n width determination [facility] Rubella IgG measurement [facility] Work Phone: Serologic test for syphilis [facility] Serum chloride measurement [facility] Sodium measurement [facility] Total protein measurement [facility] Treponema sp Ab [Presence] in Serum [facility] Work Phone: Ultrasound scan for growth [facility] Urea nitrogen [Mass/volume] in Serum or Plasma [facility] Immunizations Immunization Date Immunization Notes Care Provider Campos martinez 04-18-2023 tetanus toxoid, redu thom diphtheria toxoid, and acellular pertussis vaccine, adsorbed No Primary Care Physician [facility] 10-28-2020 tetanus toxoid, redu thom diphtheria toxoid, and acellular pertussis vaccine, adsorbed [facility] 10-29-2018 tetanus toxoid, redu thom diphtheria toxoid, and acellular pertussis vaccine, adsorbed Griselda Linton APRN-YARN POLISHING MACHINE OPERATOR Work Phone: [facility] Work Phone: 09-06-2016 influenza, injectabl e, quadrivalent, preservative free Griselda Linton APRN-YARN POLISHING MACHINE OPERATOR Work Phone: [facility] 09-06-2016 influenza virus vacc ine, unspecified formulation Griselda Linton APRN-YARN POLISHING MACHINE OPERATOR Work Phone: [facility] Work Phone: 05-17-2016 tetanus toxoid, redu thom diphtheria toxoid, and acellular pertussis vaccine, adsorbed Griselda Linton 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 Work Phone: [facility] 06-10-2014 meningococcal polysaccharide (groups A, C, Y and W-135) diphtheria toxoid conjugate vaccine (MCV4P) Griselda Linton APRN-YARN POLISHING MACHINE OPERATOR Work Phone: [facility] 11-10-2011 varicella virus vaccine Griselda Linton APRN-YARN POLISHING MACHINE OPERATOR Work Phone: [facility] 07-13-2010 meningococcal polysaccharide (groups A, C, Y and W-135) diphtheria toxoid conjugate vaccine (MCV4P) Griselda Linton APRN-YARN POLISHING MACHINE OPERATOR Work Phone: [facility] 07-13-2010 tetanus toxoid, redu thom diphtheria toxoid, and acellular pertussis vaccine, adsorbed Griselda Linton APRN-YARN POLISHING MACHINE OPERATOR Work Phone: [facility] 12-30-2009 hepatitis B vaccine, pediatric or pediatric/adolescent dosage Griselda Linton APRN-YARN POLISHING MACHINE OPERATOR Work Phone: [facility] Work Phone: 08-31-2009 influenza virus vacc ine, split virus (incl. purified surface antigen) [facility] Work Phone: [facility] Work Phone: 08-31-2009 influenza virus vacc ine, whole virus [facility] Work Phone: [facility] Work Phone: 07-01-2003 diphtheria, tetanus toxoids and acellular pertussis vaccine [facility] Work Phone: [facility] Work Phone: 07-01-2003 diphtheria, tetanus toxoids and pertussis vaccine [facility] Work Phone: [facility] Work Phone: 07-01-2003 measles, mumps and rubella virus vaccine [facility] Work Phone: [facility] Work Phone: 07-01-2003 poliovirus vaccine, inactivated [facility] Work Phone: [facility] Work Phone: 07-01-2003 poliovirus vaccine, unspecified formulation [facility] Work Phone: [facility] Work Phone: 06-22-1999 varicella virus vaccine [facility] Work Phone: [facility] Work Phone: 04-01-1999 diphtheria, tetanus toxoids and acellular pertussis vaccine [facility] Work Phone: [facility] Work Phone: 04-01-1999 diphtheria, tetanus toxoids and pertussis vaccine Griselda Linton APRN-[facility] Work Phone: [facility] Work Phone: 04-01-1999 haemophilus influenz ae type b vaccine, PRP-T conjugate Griselda Linton APRN-YARN POLISHING MACHINE OPERATOR Work Phone: [facility] Work Phone: 04-01-1999 measles, mumps and rubella virus vaccine Griselda Linton APRN-YARN POLISHING MACHINE OPERATOR Work Phone: [facility] Work Phone: 09-29-1998 poliovirus vaccine, inactivated Griselda Linton APRN-YARN POLISHING MACHINE OPERATOR Work Phone: [facility] Work Phone: 09-29-1998 trivalent poliovirus vaccine, live, oral Griselda Linton APRN-[facility] Work Phone: [facility] Work Phone: 06-16-1998 hepatitis B vaccine, pediatric or pediatric/adolescent dosage Griselda Linton APRN-[facility] Work Phone: [facility] Work Phone: 04-14-1998 diphtheria, tetanus toxoids and acellular pertussis vaccine Griselda Linton APRN-[facility] Work Phone: [facility] Work Phone: 04-14-1998 diphtheria, tetanus toxoids and pertussis vaccine Griselda Linton APRN-[facility] Work Phone: [facility] Work Phone: 04-14-1998 haemophilus influenz ae type b vaccine, PRP-T conjugate Griselda Linton APRN-[facility] Work Phone: [facility] Work Phone: 02-03-1998 diphtheria, tetanus toxoids and acellular pertussis vaccine Griselda Linton APRN-[facility] Work Phone: [facility] Work Phone: 02-03-1998 diphtheria, tetanus toxoids and pertussis vaccine Griselda Linton APRN-[facility] Work Phone: [facility] Work Phone: 02-03-1998 haemophilus influenz ae type b vaccine, PRP-T conjugate Griselda Linton APRN-YARN POLISHING MACHINE OPERATOR Work Phone: [facility] Work Phone: 02-03-1998 poliovirus vaccine, inactivated Griselda Linton APRN-YARN POLISHING MACHINE OPERATOR Work Phone: [facility] Work Phone: 02-03-1998 poliovirus vaccine, unspecified formulation Griselda Linton APRN-YARN POLISHING MACHINE OPERATOR Work Phone: [facility] Work Phone: 1997 diphtheria, tetanus toxoids and acellular pertussis vaccine Griselda Linton APRN-YARN POLISHING MACHINE OPERATOR Work Phone: [facility] Work Phone: 1997 diphtheria, tetanus toxoids and pertussis vaccine Griselda Linton APRN-YARN POLISHING MACHINE OPERATOR Work Phone: [facility] Work Phone: 1997 haemophilus influenz ae type b vaccine, PRP-T conjugate Griselda Linton APRN-YARN POLISHING MACHINE OPERATOR Work Phone: [facility] Work Phone: 1997 hepatitis B vaccine, pediatric or pediatric/adolescent dosage Griselda Linton APRN-YARN POLISHING MACHINE OPERATOR Work Phone: [facility] 1997 poliovirus vaccine, inactivated Griselda Linton APRN-YARN POLISHING MACHINE OPERATOR Work Phone: [facility] Work Phone: 1997 poliovirus vaccine, unspecified formulation Griselda Linton APRN-YARN POLISHING MACHINE OPERATOR Work Phone: [facility] Work Phone: 1997 hepatitis B vaccine, pediatric or pediatric/adolescent dosage Griselda Linton APRN-YARN POLISHING MACHINE OPERATOR Work Phone: [facility] Work Phone: Payers Date Payer Category Payer Self-pay [id number] 2023 Managed Care (Private) [facility] [id number] 2023 Unknown 2021 Unknown [id number] 1997 Unknown [id number] 2.16.840.1.095448.3.579.2. 90 1997 Unknown [id number] 2.16.840.1.480086.3.579.2. 1069 1997 Unknown [id number] 2.16.840.1.025112.3.579.2. 1997 Unknown [id number] 2.16.840.1.906648.3.579.2. 4 1997 Unknown [id number] 2.16.840.1.634123.3.579.2. 4 1997 Unknown [id number] 2.16.840.1.397876.3.579.2. 1243 1997 Unknown [id number] 2.16.840.1.377254.3.579.2. 124 1997 Unknown [id number] 2.16.840.1.666561.3.579.2. 1244 1997 Unknown [id number] 2.16.840.1.378903.3.579.2. 902 1997 Unknown [id number] 2.16.840.1.217485.3.579.2. 1243 1997 Unknown [id number] 2.16.840.1.329189.3.579.2. 479 Unknown [id number] Unknown [id number] Unknown [id number] 2.16.840.1.064022.3.579.2. 462 Unknown [id number] 2.16.840.1.377094.3.579.2. 462 Unknown [id number] 2.16.840.1.216222.3.579.2. 462 Unknown [id number] 2.16.840.1.074573.3.579.2. 462 Unknown [id number] 2.16.840.1.724280.3.579.2. 462 Unknown [id number] 2..840.1.399101.3.579.2. 462 Unknown [id number] 2.16.840.1.869315.3.579.2. 462 Unknown [id number] 2.16.840.1.945902.3.579.2. 462 Unknown [id number] 2.16.840.1.530429.3.579.2. 462 Unknown [id number] 2.16.840.1.661344.3.579.2. 462 Unknown [id number] 2.16.840.1.798851.3.579.2. 462 Unknown [id number] 2.16.840.1.722094.3.579.2. 462 Unknown [id number] 2.16.840.1.994648.3.579.2. 462 Unknown [id number] 2.16.840.1.268424.3.579.2. 462 Unknown [id number] 2.16.840.1.364413.3.579.2. 462 Unknown [id number] 2.16.840.1.440083.3.579.2. 462 Unknown [id number] 2.16.840.1.392716.3.579.2. 462 Unknown [id number] 2.16.840.1.776151.3.579.2. 462 Unknown [id number] 2.16.840.1.660318.3.579.2. 462 Unknown [id number] 2.16.840.1.340050.3.579.2. 462 Social History Date Type Detail Facility [facility] Start: 06-25-2021 End: 06-01-2023 Tobacco smoking consumption unknown [facility] Start: 1995 Sex Assigned At Female [facility] Start: 09-14-2023 End: 03-28-2025 Tobacco smoking status NHIS Never smoked tobacco [facility] Work Phone: Start: 09-14-2023 Tobacco use and exposure Smokeless tobacco non-user [facility] Work Phone: Start: 09-14-2023 End: 05-16-2024 Alcohol intake Ex-drinker (finding) [facility] Work Phone: Start: 09-14-2023 End: 05-16-2024 History of Social function [facility] Work Phone: Start: 09-14-2023 End: 05-16-2024 Tobacco use panel [facility] Work Phone: Start: 1995 Sex Assigned At Not on file [facility] Work Phone: Start: 09-04-2023 End: 01-25-2025 Exposure to SARS-CoV-2 (event) Not sure [facility] Start: 05-06-2024 End: 05-16-2024 Exposure to SARS-CoV-2 (event) Unable to assess [facility] Work Phone: Goals Date Patient Goal Desired Activity /State Functional Status Date Assessment Result Facility 05-19-2023 Functional status Standby Assist [facility] Work Phone: Mental Status Date Assessment Result Facility 05-20-2023 Cognitive function Awake [facility] Work Phone: Clinical Notes 05-19-2023 to 09-05-2025 Note Date & Type Note Facility 09-05-2025 Progress note [facility] 08-21-2025 Progress note [facility] 08-21-2025 Progress note Note Date/Time August 21, 2025 2:47pm [facility] [address], [address] [place] [address] OFFICE VISIT Date of Service: 08/21/25 MR#: [id number] Acct: [id number] Name: GERALD MILLER Rep #: [id number] : 1995 Provider: Dr. Delmer Colindres MD Age/Sex: 29/F Location: [facility] Status: Signed Intake Vital Signs 07/03/25 09:51 07/29/25 09:48 08/21/25 14:24 08/21/25 14:28 08/21/25 14:44 Height 5 ft 3 in 5 ft 3 in 5 ft 3 in 5 ft 3 in Weight: 201 lb BMI 35.6 BP 146/81 H 126/78 H 126/78 H Intake Visit Reasons: 28 wk ob/ glucose *doc only Waist Fitter Required: No Is patient in pain?: Yes (headache) Allergies No Known Allergies Allergy (Verified 08/21/25 14:26) Medications ?Medication ?Instructions ?Recorded ?Confirmed ?Type docosahexaenoic acid 200 mg mg PO 03/28/25 08/21/25 Hi story capsule ( DHA) ondansetron 4 mg disintegrating 4 mg PO Q6H PRN nausea and 04/08/25 08/21/25 Rx tablet vomiting #90 tabs aspirin 81 mg tablet 81 mg PO QDAY 06/18/2508/21 History Last Menstrual Period: 02/04/25 Zika: Zika virus screening: Negative : No PFSH PFSH Medical History Seasonal allergies History of premature rupture of membranes (PPROM) History of pre-term labor History of miscarriage Anxiety Surgical History Hx of wisdom tooth extraction S/P H/O dilation and curettage Social History adopted: No household members: spouse and children housing: house number of children: 3 current occupational status: employed current occupation: [employer] current occupational exposures/hazards: No pets and animals: Yes pets and animals: dog(s) history of recent travel: Yes ( - February 2025) out of state: Yes out of country: No sexually active: Yes Smoking Status: Never smoker second hand exposure: No alcohol intake: never substance use type: does not use well-balanced diet: daily or most days caffeine: Yes Type: carbonated beverages Number of servings: 1 eating out: 1-3 times/week during the past year weight has: remained stable what type of physical activity do you participate in: none khai/episcopal: Religion seatbelt use: always do you feel safe at home: Yes 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 Date Name GA/Weeks Outcome Route Bth Weight Infant Gen Labor Lgth Anesthesia Del Locatn Provider FOB 07/21/18 4 spontaneous TJ 09/20/18 11 spontaneous TJ 11/23/18 Elijah 38 live - full term 7lbs 4oz Male spinal [facility] 12/24/20 Rojas 35 live - 6lbs 4oz Male s manuel [facility] Dr. Dailey TJ 05/19/23 Ramakrishna 37 live - full term 7lbs 9oz Male spinal [facility] Katia YANG Delivery Date: 07/21/18 Last Updated by: Gina Staley RN Passed naturally Delivery Date: 09/20/18 Last Updated by: Gina Staley RN D&C Delivery Date: 11/23/18 Last Updated by: Gina Staley RN [facility]: CAT II FHT Delivery Date: 02/04/21 Last Updated by: Delmy Welsh PPROM Delivery Date: 05/19/23 Last Updated by: Alicia Víctor RLTCS 37 wks preeclampsia HPI 28 wk ob/ glucose *doc only Details: GERALD MILLER is a 29 year old who presents for routine OB visit. OB Visit SAJAN Calculator Estimated Delivery Date Method Current WG Current Estimate 11/11/25 LMP (Certain) 28w 2d Other Estimates 11/10/25 Ultrasound #1 28w 3d Expected Delivery Route/Plan repeat C/S with SM considenrg BS Specific Issue/Plans Covid status: [] Flu vaccine: [] Tdap vaccine: [] Rhogam: [] LARC form signed: [] Problem list reviewed and updated with the most current plan of care details and appropriate orders placed. Relevant counseling for the gestational age provided. Continue routine care and follow up unless otherwise noted in visit notes/problem list details Initial Weight: 177 lb Date -?-?-?-?-?-?-?-?-?-?-?-?- EGA Weight BP Urine Prot -?-?-?-?-?-?-?-?-?-?-?-?- Glucose FHR FuHt Pres Dilation -?-?-?-?-?-?-?-?-?-?-?-?- Effaced St Visit Note 04/07/25 -?-?-?-?-?-?-?-?-?-?-?-?- 8w 6d 177 lb 2 oz (+2 oz) 139/88 -?-?-?-?-?-?-?-?-?-?-?-?- 173 -?-?-?-?-?-?-?--?-?-?-?-?- KW- CRL cons wit h dates. Declines NIPT. KW- CRL cons with dates. Dec lines NIPT. start asa for GHTN/pre e 05/05/25 -?-?-?-?-?-?-?-?-?-?-?-?- 12w 6d 180 lb 6 oz (+3 lb 6 oz) 144/87 Negative -?-?-?-?-?-?-?-?-?-?-?-?- Negative 160 -?-?-?-?-?-?-?-?-?-?-?-?- SM- no vb lof cr amping nausea stable 06/04/25 -?-?-?-?-?-?-?-?-?-?-?-?- 17w 1d 184 lb 2 oz (+7 lb 2 oz) 143/93 126/85 Negative -?-?-?-?-?-?-?-?-?-?-?-?- Negative 145 -?-?-?-?-?-?-?-?-?-?-?-?- SM- normal bps a t home SM- normal bps at home, will start tracking and bring in, no vb crmaping 07/03/25 -?-?-?-?-?-?-?-?-?-?-?-?- 21w 2d 187 lb 5 oz (+10 lb 5 oz) 132/80 Negative -?-?-?-?-?-?-?-?-?-?-?-?- Negative 145 -?-?-?-?-?-?-?-?-?-?-?--?- SM- no vb lof go od fm n oreuglar ctx girl concha 07/29/25 -?-?-?-?-?-?-?-?-?-?-?-?- 25w 0d 195 lb 6 oz (+18 lb 6 oz) 121/80 Negative -?-?-?-?-?-?-?-?-?-?-?-?- Negative 145 26 -?-?-?-?-?-?-?-?-?-?-?-?- SM- no vb lof go od fm n oregualr ctx 08/21/25 -?-?-?-?-?-?-?-?-?--?-?-?- 28w 2d 201 lb (+24 lb) 146/81 126/78 126/78 -?-?-?-?-?-?-?-?-?-?-?-?- 150 29 -?-?-?-?-?-?-?-?-?-?-?-?- SM- no vb lof go od fm n oregular ct x ACOG First Trimester First Trimester: Desire for , Alcohol, Tobacco Cessation, Illicit/Recreational Drug/Substance Use, Intimate Partner Violence, Barriers to care, Unstable Housing, Communication Barriers, Environmental/Work Hazards, Anticipated Course of Care, Toxoplasmosis Precations, Use of Any medications, Sexual activity, Exercise, Dental Care, Sauna/Hot tub use, Seat Belt use, Childbirth classes/Hospital facilities, Travel, Indications for Ultrasound and Screening for Aneuploidy; Discussed Second Trimester Second Trimester: Signs and Symptoms of Labor, Selecting a care provider, Reproductive Life Planning & Contreception, Care Planning, Depression/Anxiety and Intimate Partner Violence; Discussed Tobacco Cessation Third Trimester Third Trimester: Pain Management Plans, Labor support person(s), Immediate Larc, Circumcision preference, Movement Monitoring, Signs and Symptoms of Preeclampsia, Feeding No , Education and Family Medical Leave or Disability Forms Coding Level of Care Code OB Routine Diagnoses GBS (group B streptococcus) UTI complicating O23.40; B95.1 Hx of delivery, currently O09.899 Supervision of high-risk O09.90 28 weeks gestation of Z3A.28 Weeks of gestation: 28 weeks Obesity affecting O99.210 History of pre-eclampsia in prior , currently O09.299 History of gestational hypertension Z87.59 History of miscarriage, currently O09.299 History of delivery, currently O34.219 Assessment and Plan Assessment and Plan (1) GBS (group B streptococcus) UTI complicating : Status: Acute Comment: treat in labor (2) Hx of delivery, currently : Status: Acute Comment: Pre-term labor w/PPROM @ 35weeks with 2nd child (3) Supervision of high-risk : Status: Acute Comment: PRR, ; SAJAN 11/11/25; girl Concha Cortés PC: Rojas Nava & Ramakrishna; : CELIA (4) : Status: Acute Qualifiers: Weeks of gestation: 28 weeks Qualified Code(s): Z3A.28 - 28 weeks gestation of Comment: Discussed genetic/carrier testing - undecided (5) Obesity affecting : Status: Acute Comment: BMI 30.1; HgBA1C normal (6) History of pre-eclampsia in prior , currently : Status: Acute Comment: Baby ASA @ 12-28weeks; Pre-e labs nl (7) History of gestational hypertension: Status: Acute (8) History of miscarriage, currently : Status: Acute Comment: x2 w/1 D&C (9) History of delivery, currently : Status: Acute Comment: x3;rpt csec with SM 11/05 possible BS 08/21/25 1447 <Electronically signed by Angelia palma MD> Date _ Angelia Colindres MD [facility] Signature: Date (if applicable) CC: ~ [facility] Work Phone: 1(203) 519-197209-09-2025 Progress [facility] [address] [place] [address], [address] [place] [address] OFFICE VISIT Date of Service: 07/29/25 MR#: [id number] Acct: [id number] Name: GERALD MILLER Rep #: [id number] : 1995 Provider: Dr. Delmer Colindres MD Age/Sex: 29/F Location: [facility] Status: Signed Intake Vital Signs 04/07/25 08:46 07/03/25 09:51 07/29/25 09:48 Height 5 ft 3 in 5 ft 3 in 5 ft 3 in Weight: 195 lb 6 oz BMI 34.6 BP 121/80 H Intake Visit Reasons: 25wk ob *doc only Waist Fitter Required: No Is patient in pain?: No Allergies No Known Allergies Allergy (Verified 07/29/25 09:55) Medications ?Medication ?Instructions ?Recorded ?Confirmed ?Type docosahexaenoic acid 200 mg mg PO 03/28/25 07/29/25 Hi story capsule ( DHA) ondansetron 4 mg disintegrating 4 mg PO Q6H PRN nausea and 04/08/25 07/29/25 Rx tablet vomiting #90 tabs aspirin 81 mg tablet 81 mg PO QDAY 06/18/2507/29 History Last Menstrual Period: 02/04/25 Zika: Zika virus screening: Negative : No PFSH PFSH Medical History Seasonal allergies History of premature rupture of membranes (PPROM) History of pre-term labor History of miscarriage Anxiety Surgical History Hx of wisdom tooth extraction S/P H/O dilation and curettage Social History adopted: No household members: spouse and children housing: house number of children: 3 current occupational status: employed current occupation: [employer] current occupational exposures/hazards: No pets and animals: Yes pets and animals: dog(s) history of recent travel: Yes ( - February 2025) out of state: Yes out of country: No sexually active: Yes Smoking Status: Never smoker second hand exposure: No alcohol intake: never substance use type: does not use well-balanced diet: daily or most days caffeine: Yes Type: carbonated beverages Number of servings: 1 eating out: 1-3 times/week during the past year weight has: remained stable what type of physical activity do you participate in: none khai/episcopal: Religion seatbelt use: always do you feel safe at home: Yes 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 Date Name GA/Weeks Outcome Route Bth Weight Infant Gen Labor Lgth Anesthesia Del Locatn Provider FOB 07/21/18 4 spontaneous TJ 09/20/18 11 spontaneous TJ 11/23/18 Elijah 38 live - full term 7lbs 4oz Male spinal [facility] TJ 12/24/20 Rojas 35 live - 6lbs 4oz Male s manuel [facility] Dr. Ashlie YANG 05/19/23 Ramakrishna 37 live - full term 7lbs 9oz Male spinal [facility] Katia TJ Delivery Date: 07/21/18 Last Updated by: Gina Staley RN Passed naturally Delivery Date: 09/20/18 Last Updated by: Gina Staley RN D&C Delivery Date: 11/23/18 Last Updated by: Gina Staley RN [facility]: CAT II FHT Delivery Date: 12/24/20 Last Updated by: Delmy Welsh PPROM Delivery Date: 05/19/23 Last Updated by: Alicia Renee RLTCS 37 wks preeclampsia HPI 25wk ob *doc only Details: GERALD MILLER is a 29 year old who presents for routine OB visit. OB Visit SAJAN Calculator Estimated Delivery Date Method Current WG Current Estimate 11/11/25 LMP (Certain) 25w 0d Other Estimates 11/10/25 Ultrasound #1 25w 1d Expected Delivery Route/Plan repeat C/S with SM considenrg BS Specific Issue/Plans Covid status: [] Flu vaccine: [] Tdap vaccine: [] Rhogam: [] LARC form signed: [] Problem list reviewed and updated with the most current plan of care details and appropriate ordersplaced. Relevant counseling for the gestational age provided. Continue routine care and follow up unless otherwise noted in visit notes/problem list details Initial Weight: 177 lb Date -?-?-?-?--?-?-?-?-?-?-?-?- EGA Weight BP Urine Prot -?-?-?-?-?-?-?-?-?-?-?-?- Glucose FHR FuHt Pres Dilation -?-?-?-?-?-?-?-?-?-?-?-?- Effaced St Visit Note 04/07/25 -?-?-?-?-?-?-?-?-?-?-?-?- 8w 6d 177 lb 2 oz (+2 oz) 139/88 -?-?-?-?-?-?-?-?-?-?-?-?- 173 -?-?-?-?-?-?-?-?-?-?-?-?- KW- CRL cons wit h dates. Declines NIPT. KW- CRL cons with dates. Dec lines NIPT. start asa for GHTN/pre e 05/05/25 -?-?-?-?-?-?-?-?-?-?-?-?- 12w 6d 180 lb 6 oz (+3 lb 6 oz) 144/87 Negative -?-?-?-?-?-?-?-?-?-?-?-?- Negative 160 -?-?-?-?-?-?-?-?-?-?-?-?- SM- no vb lof cr amping nausea stable 06/04/25 -?-?-?-?-?-?-?-?-?-?-?-?- 17w 1d 184 lb 2 oz (+7 lb 2 oz) 143/93 126/85 Negative -?-?-?-?-?-?-?-?-?-?-?-?- Negative 145 -?-?-?-?-?-?-?-?-?-?-?-?- SM- normal bps a t home SM- normal bps at home, will start tracking and bring in, no vb crmaping 07/03/25 -?-?-?-?-?-?-?-?-?-?-?-?- 21w 2d 187 lb 5 oz (+10 lb 5 oz) 132/80 Negative -?-?-?-?-?-?-?-?-?-?-?-?- Negative 145 -?-?-?-?-?-?-?-?-?-?-?-?- SM- no vb lof go od fm n oreuglar ctx girl concha 07/29/25 -?-?-?-?-?-?-?-?-?-?-?-?- 25w 0d 195 lb 6 oz (+18 lb 6 oz) 121/80 Negative -?-?-?-?-?-?-?-?-?-?-?-?- Negative 145 26 -?-?-?-?-?-?-?-?-?-?-?-?- SM- no vb lof go od fm n oregualr ctx ACOG First Trimester First Trimester: Desire for , Alcohol, Tobacco Cessation, Illicit/Recreational Drug/Substance Use, Intimate Partner Violence, Barriers to care, Unstable Housing, Communication Barriers, Environmental/Work Hazards, Anticipated Course of Care, Toxoplasmosis Precations, Use of Any med ications, Sexual activity, Exercise, Dental Care, Sauna/Hot tub use, Seat Belt use, Childbirth classes/Hospital facilities, Travel, Indications for Ultrasound and Screening for Aneuploidy; Discussed Second Trimester Second Trimester: Signs and Symptoms of Labor, Selecting a care provider, Reproductive Life Planning & Contreception, Care Planning, Depression/Anxiety and Intimate Partner Violence; Discussed Tobacco Cessation Third Trimester Third Trimester: Pain Management Plans, Labor support person(s), Immediate Larc, Circumcision preference, Movement Monitoring, Signs and Symptoms of Preeclampsia, Infant Feeding No , [place] Education and Family Medical Leave or Disability Forms Results POC Urinalysis 2 Dip (Clinic) Office Urine Glucose Negative Last Edit by Anahi Sibley on 07/29/25 10:11 Office Urine Protein Negative Last Edit by Anahi Sibley on 07/29/25 10:11 Coding Level of Care Code OB Routine Diagnoses GBS (group B streptococcus) UTI complicating O23.40; B95.1 Hx of delivery, currently O09.899 Supervision of high-risk O09.90 25 weeks gestation of Z3A.25 Weeks of gestation: 25 weeks Obesity affecting O99.210 History of pre-eclampsia in prior , currently O09.299 History of gestational hypertension Z87.59 History of miscarriage, currently O09.299 History of delivery, currently O34.219 Assessment and Plan Assessment and Plan (1) GBS (group B streptococcus) UTI complicating : Status: Acute Comment: treat in labor (2) Hx of delivery, currently : Status: Acute Comment: Pre-term labor w/PPROM @ 35weeks with 2nd child (3) Supervision of high-risk : Status: Acute Comment: PRR, ; SAJAN 11/11/25; PC: Rojas Nava & Ramakrishna; : CELIA (4) : Status: Acute Qualifiers: Weeks of gestation: 25 weeks Qualified Code(s): Z3A.25 - 25 weeks gestation of Comment: Discussed genetic/carrier testing - undecided (5) Obesity affecting : Status: Acute Comment: BMI 30.1; HgBA1C normal (6) History of pre-eclampsia in prior , currently : Status: Acute Comment: Baby ASA @ 12-28weeks; Pre-e labs nl (7) History of gestational hypertension: Status: Acute (8) History of miscarriage, currently : Status: Acute Comment: x2 w/1 D&C (9) History of delivery, currently : Status: Acute Comment: x3; Desires rpt csec Orders: Orders POC Urinalysis 2 Dip (Clinic) Today CBC W/Diff, Automated Today O09.90 - Supervision of high risk , unspecified, unspecified trimester Glucose Challenge Gest 1H 50g Today O09.90 - Supervision of high risk , unspecified, unspecified trimester, Z13.1 - Encounter for screening for diabetes mellitus HIV Today O09.90 - Supervision of high risk , unspecified, unspecified trimester Syphilis Antibodies Today O09.90 - Supervision of high risk , unspecified, unspecified trimester 07/29/25 1027 minerva ESPINOZA> Date _ Angelia Colindres MD [facility] Signature: Date (if applicable) CC: ~ [facility]07-16-2025 Evaluation note* Diagnosis Onset Date Resolution Status Admit Date GBS (group B streptococcus) UTI complicating acute June 04, 2025 10:13am History of delivery , currently acute June 04 10:13am History of gestational hypertension acute June 04, 2025 10:13am History of miscarriage, currently acute June 04 10:13am History of pre-eclampsia in prior , currently acute June 04, 2025 10:13am Hx of delivery, currently acute June 04 10:13am Obesity affecting acute June 04, 2025 10:13am acute June 04 10:13am Supervision of high-risk acute June 04, 2025 10:13am GBS (group B streptococcus) UTI complicating acute June 18, 2025 8:31am History of delivery , currently acute June 18 8:31am History of gestational hypertension acute June 18, 2025 8:31am History of miscarriage, currently acute June 18 8:31am History of pre-eclampsia in prior , currently acute June 18, 2025 8:31am Hx of delivery, currently acute June 18 8:31am Obesity affecting acute June 18, 2025 8:31am acute June 18 8:31am Supervision of high-risk acute June 18, 2025 8:31am GBS (group B streptococcus) UTI complicating acute Augus 2024 9:36am History of delivery , currently acute July 03, 2025 9:36am History of gestational hypertension acute July 03 9:36am History of miscarriage, currently acute July 03, 2025 9:36am History of pre-eclampsia in prior , currently acute July 03 9:36am Hx of delivery, currently acute July 03, 2025 9:36am Obesity affecting acute July 03, 2025 9:36am acute July 03, 025 9:36am Supervision of high-risk acute July 03 9:36am GBS (group B streptococcus) UTI complicating acute Septe mb2024 9:36am History of delivery , currently acute July 9:36am History of gestational hypertension acute July 29 025 9:36am History of miscarriage, currently acute July 9:36am History of pre-eclampsia in prior , currently acute July 29 025 9:36am Hx of delivery, currently acute July 9:36am Obesity affecting acute July 29, 2025 9:36am acute July 29, 2025 9:36am Supervision of high-risk acute July 29 2 025 9:36am GBS (group B streptococcus) UTI complicating acute Octob er 2024 1:56pm History of delivery , currently acute August 21, 2025 1:56pm History of gestational hypertension acute August 21 1:56pm History of miscarriage, currently acute August 21, 2025 1:56pm History of pre-eclampsia in prior , currently acute August 21 1:56pm Hx of delivery, currently acute August 21, 2025 1:56pm Obesity affecting acute August 21, 2025 1:56pm acute August 21, 025 1:56pm Supervision of high-risk acute August 21 1:56pm GBS (group B streptococcus) UTI complicating acute Octob er 2024 8:47am History of delivery , currently acute September 05, 2025 8:47am History of gestational hypertension acute September 05 8:47am History of miscarriage, currently acute September 05, 2025 8:47am History of pre-eclampsia in prior , currently acute September 05 8:47am Hx of delivery, currently acute September 05, 2025 8:47am Obesity affecting acute September 05, 2025 8:47am acute September 05, 2025 8:47am Supervision of high-risk acute September 05 8:47am [facility] Work Phone: 1(922) 701-183806-16-2025 Evaluation note* Diagnosis Onset Date Resolution Status Admit Date GBS (group B streptococcus) UTI complicating acute May 05, 2025 8:46am History of delivery , currently acute May 05 8:46am History of gestational hypertension acute May 05, 2025 8:46am History of miscarriage, currently acute May 05 8:46am History of pre-eclampsia in prior , currently acute May 05, 2025 8:46am Hx of delivery, currently acute May 05 8:46am Obesity affecting acute May 05, 2025 8:46am acute May 05 8:46am Supervision of high-risk acute May 05, 2025 8:46am GBS (group B streptococcus) UTI complicating acute June 04, 2025 10:13am History of delivery , currently acute June 04 10:13am History of gestational hypertension acute June 04, 2025 10:13am History of miscarriage, currently acute June 04 10:13am History of pre-eclampsia in prior , currently acute June 04, 2025 10:13am Hx of delivery, currently acute June 04 10:13am Obesity affecting acute June 04, 2025 10:13am acute June 04 10:13am Supervision of high-risk acute June 04, 2025 10:13am GBS (group B streptococcus) UTI complicating acute June 18, 2025 8:31am History of delivery , currently acute June 18 8:31am History of gestational hypertension acute June 18, 2025 8:31am History of miscarriage, currently acute June 18 8:31am History of pre-eclampsia in prior , currently acute June 18, 2025 8:31am Hx of delivery, currently acute June 18 8:31am Obesity affecting acute June 18, 2025 8:31am acute June 18 8:31am Supervision of high-risk acute June 18, 2025 8:31am GBS (group B streptococcus) UTI complicating acute Augus 2024 9:36am History of delivery , currently acute July 03, 2025 9:36am History of gestational hypertension acute July 03 9:36am History of miscarriage, currently acute July 03, 2025 9:36am History of pre-eclampsia in prior , currently acute July 03 9:36am Hx of delivery, currently acute July 03, 2025 9:36am Obesity affecting acute July 03, 2025 9:36am acute July 03, 025 9:36am Supervision of high-risk acute July 03 9:36am GBS (group B streptococcus) UTI complicating acute 2024 9:36am History of delivery , currently acute July 9:36am History of gestational hypertension acute July 29 9:36am History of miscarriage, currently acute July 9:36am History of pre-eclampsia in prior , currently acute July 29 9:36am Hx of delivery, currently acute July 9:36am Obesity affecting acute July 29, 2025 9:36am acute July 29, 2025 9:36am Supervision of high-risk acute July 29 9:36am GBS (group B streptococcus) UTI complicating acute 2024 1:56pm History of delivery , currently acute August 21, 2025 1:56pm History of gestational hypertension acute August 21 1:56pm History of miscarriage, currently acute August 21, 2025 1:56pm History of pre-eclampsia in prior , currently acute August 21 1:56pm Hx of delivery, currently acute August 21, 2025 1:56pm Obesity affecting acute August 21, 2025 1:56pm acute August 21 1:56pm Supervision of high-risk acute August 21 1:56pm [facility] Work Phone: 1(744) 423-932305-19-2025 Evaluation note* Diagnosis Onset Date Resolution Status Admit Date History of delivery , currently acute April 07 8:32am History of gestational hypertension acute April 07, 2025 8 :32am History of miscarriage, curr ently acute April 07, 2025 8 :32am History of pre-eclampsia in prior , currently acute 2024 8:32am Hx of delivery, curr ently acute April 07, 2025 8 :32am Obesity affecting acute April 07, 2025 8:32am acute April 07, 2025 8:32am Supervision of high-risk acute April 07, 2025 8 :32am GBS (group B streptococcus) UTI complicating acute April 8:46am History of delivery , currently acute May 05 8:46am History of gestational hypertension acute May 05, 2025 8:46am History of miscarriage, curr ently acute May 05, 2025 8:46am History of pre-eclampsia in prior , currently acute 2024 8:46am Hx of delivery, curr ently acute May 05, 2025 8:46am Obesity affecting acute May 05, 2025 8:46am acute May 05 8:46am Supervision of high-risk acute May 05, 2025 8:46am [facility] Work Phone: 1(907) 753-696905-19-2025 Evaluation note* Diagnosis Onset Date Resolution Status Admit Date History of delivery , currently acute April 07 8:32am History of gestational hypertension acute April 07, 2025 8 :32am History of miscarriage, currently acute April 07 8:32am History of pre-eclampsia in prior , currently acute April 07, 2025 8 :32am Hx of delivery, currently acute April 07 8:32am Obesity affecting acute April 07, 2025 8:32am acute April 07, 2025 8:32am Supervision of high-risk acute April 07, 2025 8 :32am GBS (group B streptococcus) UTI complicating acute April 8:46am History of delivery , currently acute May 05 8:46am History of gestational hypertension acute May 05, 2025 8:46am History of miscarriage, currently acute May 05 8:46am History of pre-eclampsia in prior , currently acute May 05, 2025 8:46am Hx of delivery, currently acute May 05 8:46am Obesity affecting acute May 05, 2025 8:46am acute May 05 8:46am Supervision of high-risk acute May 05, 2025 8:46am GBS (group B streptococcus) UTI complicating acute May 10:13am History of delivery , currently acute June 04 10:13am History of gestational hypertension acute June 04, 2025 10:13am History of miscarriage, currently acute June 04 10:13am History of pre-eclampsia in prior , currently acute June 04, 2025 10:13am Hx of delivery, currently acute June 04 10:13am Obesity affecting acute June 04, 2025 10:13am acute June 04 10:13am Supervision of high-risk acute June 04, 2025 10:13am [facility] Work Phone: 1([phone]) 745-523405-19-2025 Evaluation note* Diagnosis Onset Date Resolution Status Admit Date History of delivery , currently acute April 07 8:32am History of gestational hypertension acute April 07, 2025 8 :32am History of miscarriage, currently acute April 07 8:32am History of pre-eclampsia in prior , currently acute April 07, 2025 8 :32am Hx of delivery, currently acute April 07 8:32am Obesity affecting acute April 07, 2025 8:32am acute April 07, 2025 8:32am Supervision of high-risk acute April 07, 2025 8 :32am GBS (group B streptococcus) UTI complicating acute April 8:46am History of delivery , currently acute May 05 8:46am History of gestational hypertension acute May 05, 2025 8:46am History of miscarriage, currently acute May 05 8:46am History of pre-eclampsia in prior , currently acute May 05, 2025 8:46am Hx of delivery, currently acute May 05 8:46am Obesity affecting acute May 05, 2025 8:46am acute May 05 8:46am Supervision of high-risk acute May 05, 2025 8:46am GBS (group B streptococcus) UTI complicating acute May 10:13am History of delivery , currently acute June 04 10:13am History of gestational hypertension acute June 04, 2025 10:13am History of miscarriage, currently acute June 04 10:13am History of pre-eclampsia in prior , currently acute June 04, 2025 10:13am Hx of delivery, currently acute June 04 10:13am Obesity affecting acute June 04, 2025 10:13am acute June 04 10:13am Supervision of high-risk acute June 04, 2025 10:13am GBS (group B streptococcus) UTI complicating acute May 8:31am History of delivery , currently acute June 18 8:31am History of gestational hypertension acute June 18, 2025 8:31am History of miscarriage, currently acute June 18 8:31am History of pre-eclampsia in prior , currently acute June 18, 2025 8:31am Hx of delivery, currently acute June 18 8:31am Obesity affecting acute June 18, 2025 8:31am acute June 18 8:31am Supervision of high-risk acute June 18, 2025 8:31am [facility] Work Phone: 1(997) 368-567105-19-2025 Evaluation note* Diagnosis Onset Date Resolution Status Admit Date History of delivery , currently acute April 07 8:32am History of gestational hypertension acute April 07, 2025 8 :32am History of miscarriage, currently acute April 07 8:32am History of pre-eclampsia in prior , currently acute April 07, 2025 8 :32am Hx of delivery, currently acute April 07 8:32am Obesity affecting acute April 07, 2025 8:32am acute April 07, 2025 8:32am Supervision of high-risk acute April 07, 2025 8 :32am GBS (group B streptococcus) UTI complicating acute April 8:46am History of delivery , currently acute May 05 8:46am History of gestational hypertension acute May 05, 2025 8:46am History of miscarriage, currently acute May 05 8:46am History of pre-eclampsia in prior , currently acute May 05, 2025 8:46am Hx of delivery, currently acute May 05 8:46am Obesity affecting acute May 05, 2025 8:46am acute May 05 8:46am Supervision of high-risk acute May 05, 2025 8:46am GBS (group B streptococcus) UTI complicating acute May 10:13am History of delivery , currently acute June 04 10:13am History of gestational hypertension acute June 04, 2025 10:13am History of miscarriage, currently acute June 04 10:13am History of pre-eclampsia in prior , currently acute June 04, 2025 10:13am Hx of delivery, currently acute June 04 10:13am Obesity affecting acute June 04, 2025 10:13am acute June 04 10:13am Supervision of high-risk acute June 04, 2025 10:13am GBS (group B streptococcus) UTI complicating acute May 8:31am History of delivery , currently acute June 18 8:31am History of gestational hypertension acute June 18, 2025 8:31am History of miscarriage, currently acute June 18 8:31am History of pre-eclampsia in prior , currently acute June 18, 2025 8:31am Hx of delivery, currently acute June 18 8:31am Obesity affecting acute June 18, 2025 8:31am acute June 18 8:31am Supervision of high-risk acute June 18, 2025 8:31am GBS (group B streptococcus) UTI complicating acute July 032024 9:36am History of delivery , currently acute July 03, 2025 9:36am History of gestational hypertension acute July 03 9:36am History of miscarriage, currently acute July 03, 2025 9:36am History of pre-eclampsia in prior , currently acute July 03 9:36am Hx of delivery, currently acute July 03, 2025 9:36am Obesity affecting acute July 03, 2025 9:36am acute July 03, 2 025 9:36am Supervision of high-risk acute July 03 9:36am [facility] Work Phone: [phone]) [phone] Evaluation note* Diagnosis Onset Date Resolution Status Admit Date History of delivery , currently acute April 07 8:32am History of gestational hypertension acute April 07, 2025 8 :32am History of miscarriage, currently acute April 07 8:32am History of pre-eclampsia in prior , currently acute April 07, 2025 8 :32am Hx of delivery, currently acute April 07 8:32am Obesity affecting acute April 07, 2025 8:32am acute April 07, 2025 8:32am Supervision of high-risk acute April 07, 2025 8 :32am GBS (group B streptococcus) UTI complicating acute May 05, 2025 8:46am History of delivery , currently acute May 05 8:46am History of gestational hypertension acute May 05, 2025 8:46am History of miscarriage, currently acute May 05 8:46am History of pre-eclampsia in prior , currently acute May 05, 2025 8:46am Hx of delivery, currently acute May 05 8:46am Obesity affecting acute May 05, 2025 8:46am acute May 05 8:46am Supervision of high-risk acute May 05, 2025 8:46am GBS (group B streptococcus) UTI complicating acute June 04, 2025 10:13am History of delivery , currently acute June 04 10:13am History of gestational hypertension acute June 04, 2025 10:13am History of miscarriage, currently acute June 04 10:13am History of pre-eclampsia in prior , currently acute June 04, 2025 10:13am Hx of delivery, currently acute June 04 10:13am Obesity affecting acute June 04, 2025 10:13am acute June 04 10:13am Supervision of high-risk acute June 04, 2025 10:13am GBS (group B streptococcus) UTI complicating acute June 18, 2025 8:31am History of delivery , currently acute June 18 8:31am History of gestational hypertension acute June 18, 2025 8:31am History of miscarriage, currently acute June 18 8:31am History of pre-eclampsia in prior , currently acute June 18, 2025 8:31am Hx of delivery, currently acute June 18 8:31am Obesity affecting acute June 18, 2025 8:31am acute June 18 8:31am Supervision of high-risk acute June 18, 2025 8:31am GBS (group B streptococcus) UTI complicating acute Augus t 2024 9:36am History of delivery , currently acute July 03, 2025 9:36am History of gestational hypertension acute July 03 9:36am History of miscarriage, currently acute July 03, 2025 9:36am History of pre-eclampsia in prior , currently acute July 03 9:36am Hx of delivery, currently acute July 03, 2025 9:36am Obesity affecting acute July 03, 2025 9:36am acute July 03, 025 9:36am Supervision of high-risk acute July 03 9:36am GBS (group B streptococcus) UTI complicating acute Septe mb2024 9:36am History of delivery , currently acute July 9:36am History of gestational hypertension acute July 29 9:36am History of miscarriage, currently acute July 9:36am History of pre-eclampsia in prior , currently acute July 29 9:36am Hx of delivery, currently acute July 9:36am Obesity affecting acute July 29, 2025 9:36am acute July 29, 2025 9:36am Supervision of high-risk acute July 29 9:36am [facility] Work Phone: 1(431) 660-790705-19-2025 [facility] [address] [place] [address], [address] [place] [address] OFFICE VISIT Date of Service: 04/07/25 MR#: [id number] Acct: [id number] Name: GERALD MILLER Rep #: [id number] : 1995 Provider: FILI Reyez Age/Sex: 29/F Location[place] [facility] [place] Status: Signed Intake Vital Signs 08/16/24 15:58 04/07/25 08:46 Height 5 ft 3 in 5 ft 3 in Weight: 177 lb 2 oz BMI 31.4 BP 139/88 H Intake Visit Reasons: NOB LMP 02/04 Chief Complaint: New OB Waist Fitter Required: No Is patient in pain?: No Allergies No Known Allergies Allergy (Verified 04/07/25 08:44) Medications ?Medication ?Instructions ?Recorded ?Confirmed ?Type docosahexaenoic acid 200 mg mg PO 03/28/25 04/07/25 Hi story capsule ( DHA) Last Menstrual Period: 02/04/25 Have you fallen in the past year?: No PFSH PFSH Medical History Seasonal allergies History of premature rupture of membranes (PPROM) History of pre-term labor History of miscarriage Anxiety Surgical History Hx of wisdom tooth extraction S/P H/O dilation and curettage Social History adopted: No household members: spouse and children housing: house number of children: 3 current occupational status: employed current occupation: [employer] current occupational exposures/hazards: No pets and animals: Yes pets and animals: dog(s) history of recent travel: Yes ( - February 2025) out of state: Yes out of country: No sexually active: Yes Smoking Status: Never smoker second hand exposure: No alcohol intake: never substance use type: does not use well-balanced diet: daily or most days caffeine: Yes Type: carbonated beverages Number of servings: 1 eating out: 1-3 times/week during the past year weight has: remained stable what type of physical activity do you participate in: none khai/episcopal: Religion seatbelt use: always do you feel safe at home: Yes 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 Date Name GA/Weeks Outcome Route Bth Weight Infant Gen Labor Lgth Anesthesia Del Locatn Provider FOB 07/21/18 4 spontaneous TJ 09/20/18 11 spontaneous TJ 11/23/18 Elijah 38 live - full term 7lbs 4oz Male spinal [facility] TJ 12/24/20 Rojas 35 live - 6lbs 4oz Male s manuel [facility] Dr. Dailey TJ 05/19/23 Ramakrishna 37 live - full term 7lbs 9oz Male spinal [facility] Marcanthgrecia TJ Delivery Date: 07/21/18 Last Updated by: Gina Staley RN Passed naturally Delivery Date: 09/20/18 Last Updated by: Gina Staley RN D&C Delivery Date: 11/23/18 Last Updated by: Gina Staley RN [facility] @ [facility]: CAT II FHT Delivery Date: 12/24/20 Last Updated by: Delmy Welsh PPROM Delivery Date: 05/19/23 Last Updated by: Alicia Renee RLTCS 37 wks preeclampsia HPI NOB LMP 02/04 Details: GERALD MILLER is a 29 year old who presents for New OB visit. OB Visit SAJAN Calculator Estimated Delivery Date Method Current WG Current Estimate 11/11/25 LMP (Certain) 8w 6d Other Estimates 11/10/25 Ultrasound #1 9w 0d Estimated Due Date: 11/11/23 Expected Delivery Route/Plan repeat C/S Specific Issue/Plans Covid status: [] Flu vaccine: [] Tdap vaccine: [] Rhogam: [] LARC form signed: [] Problem list reviewed and updated with the most current plan of care details and appropriate ordersplaced. Relevant counseling for the gestational age provided. Continue routine care and follow up unless otherwise noted in visit notes/problem list details Initial Weight: 177 lb Date -?-?-?-?-?-?-?-?-?-?-?-?- EGA Weight BP Urine Prot -?-?-?-?-?-?-?-?-?-?-?-?- Glucose FHR FuHt Pres Dilation -?-?-?-?-?-?-?-?-?-?-?-?- Effaced St Visit Note 04/07/25 -?-?-?-?-?-?-?-?-?-?-?-?- 8w 6d 177 lb 2 oz (+2 oz) 139/88 -?-?-?-?-?--?-?-?-?-?-?-?- 173 -?-?-?-?-?-?-?-?-?-?-?-?- KW- CRL cons wit h dates. Declines NIPT. KW- CRL cons with dates. Dec lines NIPT. start asa for GHTN/pre e Menstrual History Last Menstrual Period: 02/04/25 Reported LMP: definite Normal amount/duration: Yes Frequency in days: 28 On hormonal BC at conception: No hCG+: 03/04/25 Antepartum Record Genetic Screening: Congenital Heart Defect: Other, Neural Tube Defect: Other, Hemoglobinopathy Or Carrier: Other, Cystic Fibrosis: Other, Chromosome Abnormality: Other, Evaristo-Sachs: Other, Hemophilia: Other, Intellectual Disability/Autism: Other, Recurrent Loss/Stillbirth: Patient (Pt w/2 miscarriages), Other Structural Defect: Other, Other Genetic Disease: Other and Maternal Metabolic Disorder: Other Infection History: Live with someone with TB or Exposed to TB: No, Patient or Partner has history of Genital Herpes: No, Rash or Viral illness since last mentrual period: No, Prior GBS-Infected child: No, History of STD: No, HIV Infection: No, History of Hepatitis: No, Recent travel outside of [place]: No, Concern for hepatitis exposure: No, Varicella immune: Yes (Had vaccine) and Covid Vaccinated: No Medical History Medical History: Positive: Hypertension (Gest HTN), Psychiatric (Anxiety ), Seasonal allergies, Gynsurgery (Csec x3), Operations/hospitalizations (See surg hx) and Uterine anomaly/devin (2 fibroids onuterus - discovered 2023) and Negative: Diabetes, Heart disease, Auto-immune disorder, Kidney disease/UTI, Neurologic/epilepsy, Depression/ depression, Hepatitis/liver disease, Varicosities/phlebitis, Thyroid dysfunction, Trauma/domestic violence, History of blood transfusions (O+), D (Rh) Sensitized, Pulmonary (e.g.,TB,Asthma), Drug/latex allergies/reactions, Breast, Anesthetic complications, History of abnormal pap, Infertility, Anti-retroviral treatment, Relevant family history andOther ACOG First Trimester First Trimester: Desire for , Alcohol, Tobacco Cessation, Illicit/Recreational Drug/Substance Use, Intimate Partner Violence, Barriers to care, Unstable Housing, Communication Barriers, Environmental/Work Hazards, Anticipated Course of Care, Toxoplasmosis Precations, Use of Any med ications, Sexual activity, Exercise, Dental Care, Sauna/Hot tub use, Seat Belt use, Childbirth classes/Hospital facilities, Travel, Indications for Ultrasound and Screening for Aneuploidy Second Trimester Second Trimester: Signs and Symptoms of Labor, Selecting a care provider, Reproductive Life Planning & Contreception, Care Planning, Depression/Anxiety and Intimate Partner Violence; Discussed Tobacco Cessation Third Trimester Third Trimester: Pain Management Plans, Labor support person(s), Immediate Larc, Circumcision preference, Movement Monitoring, Signs and Symptoms of Preeclampsia, Feeding, Education and Family Medical Leave or Disability Forms ROS Const Reports system reviewed and no additional complaints, except as documented, Denies fatigue, Denies headache(s) and Denies lethargy ENT Denies headache(s) Card Reports system reviewed and no additional complaints, except as documented Resp Reports system reviewed and no additional complaints, except as documented GI Reports system reviewed and no additional complaints, except as documented, Denies abdominal pain, Denies constipation, Denies cramping, Denies diarrhea and Denies dyspepsia Reports system reviewed and no additional complaints, except as documented, Denies abnormal vaginalbleeding, Denies difficulty voiding, Denies dyspareunia and Denies dysuria Musc Reports system reviewed and no additional complaints, except as documented Skin/Breast Reports system reviewed and no additional complaints, except as documented Neuro Yes system reviewed and no additional complaints, except as documented and No headache(s) Psych Reports system reviewed and no additional complaints, except as documented, Denies anhedonia and Denies anxiety Endo Reports system reviewed and no additional complaints, except as documented and Denies fatigue Exam Const General: cooperative, healthy appearing and comfortable Neck Neck: normal visual inspection and full ROM Resp Effort & Inspection: normal respiratory effort and able to speak in complete sentences GI Inspection: normal to inspection Palpation: soft External Female Exam: normal external appearance and normal appearance of the urethra Urethra: normal appearance of the urethra Skin General: no rashes or lesions noted Neuro General: patient alert, patient awake and patient oriented x3 Extrem General: normal to inspection and full ROM Psych Appearance: grossly normal and well kempt Mental Status: mental status grossly normal Mood: congruent mood Affect: normal affect Speech and Movement: speech and movement normal Thought Process: normal Thought Content: normal Coding Level of Care Code OB Routine Diagnoses Hx of delivery, currently O09.899 Supervision of high-risk O09.90 8 weeks gestation of Z3A.08 Weeks of gestation: 8 weeks Obesity affecting O99.210 History of pre-eclampsia in prior , currently O09.299 History of gestational hypertension Z87.59 History of miscarriage, currently O09.299 History of delivery, currently O34.219 Assessment and Plan Assessment and Plan (1) Hx of delivery, currently : Status: Acute Comment: Pre-term labor w/PPROM @ 35weeks with 2nd child (2) Supervision of high-risk : Status: Acute Comment: ; SAJAN 11/11/25; PC: Rojas Nava & Ramakrishna; : CELIA (3) : Status: Acute Qualifiers: Weeks of gestation: 8 weeks Qualified Code(s): Z3A.08 - 8 weeks gestation of Comment: Discussed genetic/carrier testing - undecided (4) Obesity affecting : Status: Acute Comment: BMI 30.1; HgBA1C ordered w/NOB (5) History of pre-eclampsia in prior , currently : Status: Acute Comment: Baby ASA @ 12-28weeks; Pre-e baseline labs ordered w/NOB (6) History of gestational hypertension: Status: Acute (7) History of miscarriage, currently : Status: Acute Comment: x2 w/1 D&C (8) History of delivery, currently : Status: Acute Comment: x3; Desires rpt csec Comments Comments: Patient oriented to practice and discussed care expectations and screenings. ACOG book offered to patient. Discussed routine and specially indicated labs if needed- patient consents to testing. See problem list details for plan information. Optional screening including maternal carrier screenings, neural tube defect screening, genetic screening options including quad screen, nuchal translucency, sequential screening, and NIPT screening offered to patient and patient chose: denies Clinical Quality Measures Falls Risk Screening/Assistive Devices Have you fallen in the past year?: No 04/07/25 0941 s CNM> Date _ Enid Reyez CNM Cosigner Signature: Date (if applicable) CC: ~ [facility]03-08-2025 History of Present illness Narrative* MONICA Mullins - 01/25/2025 8:05 AM EST 29 y.o. female presents for evaluation of right ear pain, cough and fatigue for the past week. Denies current fever, nausea, vomiting, diarrhea, drainage from ear, headache, change in hearing or any other associated symptom or complaint. No OTC meds symptom management. No other complaints. Vitals: 01/25/25 0806 BP: 130/89 Pulse: 96 Resp: 16 Temp: 36.5 C (97.7 F) SpO2: 99% Allergies Allergen Reactions Pollen Extracts Other Runny,stuffy nose,headaches Ragweed Unknown Runny,stuffy nose,headaches Medication Documentation Review Audit Reviewed by Nara Dueñas MA (Manager Clinical Services) on 01/25/25 at 0805 Medication Order Taking? Sig Documenting Provider Last Dose Status cholecalciferol (Vitamin D3) 50 MCG (1999 UT) tablet [id number] Take 1 tablet (50 mcg) by mouth oncedaily. Patient not taking: Reported on 01/25/2025 MONICA Carbajal Active fluticasone (Flonase) 50 mcg/actuation nasal spray [id number] Administer 1 spray into each nostril once daily. Shake gently. Before first use, prime pump. After use, clean tip and replace cap. Patient not taking: Reported on 01/25/2025 MONICA Carbajal Active Past Medical History: Diagnosis Date Allergic Anemia Anxiety Encounter for delivery without indication ([facility]) Delivery of by section Other conditions influencing health status Menstruation Personal history of other complications of , childbirth and the puerperium History of miscarriage Past Surgical History: Procedure Laterality Date SECTION, CLASSIC 06/10/2020 SECTION, LOW TRANSVERSE DILATION AND CURETTAGE OF UTERUS 06/10/2020 ROS See HPI Physical Exam Vitals and nursing note reviewed. Constitutional: Appearance: She is ill-appearing (mildly). HENT: Head: Normocephalic and atraumatic. Right Ear: Ear canal normal. No drainage. Tympanic membrane is erythematous. Tympanic membrane is not perforated or bulging. Left Ear: Tympanic membrane and ear canal normal. No drainage. Tympanic membrane is not perforated,erythematous or bulging. Nose: Congestion present. Mouth/Throat: Mouth: Mucous membranes are moist. Pharynx: Oropharynx is clear. Eyes: Extraocular Movements: Extraocular movements intact. Conjunctiva/sclera: Conjunctivae normal. Pupils: Pupils are equal, round, and reactive to light. Cardiovascular: Rate and Rhythm: Normal rate and regular rhythm. Pulmonary: Effort: Pulmonary effort is normal. Breath sounds: Normal breath sounds. Lymphadenopathy: Cervical: No cervical adenopathy. Skin: General: Skin is warm and dry. Neurological: General: No focal deficit present. Mental Status: She is alert and oriented to person, place, and time. Psychiatric: Mood and Affect: Mood normal. Behavior: Behavior normal. Assessment/Plan/MDM Gerald was seen today for cough, fatigue and r ear pain. Diagnoses and all orders for this visit: Non-recurrent acute serous otitis media of right ear (Primary) - amoxicillin (Amoxil) 875 mg tablet; Take 1 tablet (875 mg) by mouth 2 times a day for 10 days. Encouraged pt to use otc cold remedies PRN, push PO fluids and rest. Patient's clinical presentation is otherwise unremarkable at this time. Patient is discharged with instructions to follow-up with primary care or seek emergency medical attention for worsening symptoms or any new concerns. I did personally review Gerald's past medical history, surgical history, social history, as well asfamily history (when relevant). In this case, I also oversaw the her drug management by reviewing her medication list, allergy list, as well as the medications that I prescribed during the UC course and/or recommended as an out-patient (including possible OTC medications such as acetaminophen, NSAIDs , etc). After reviewing the items above, I did look at previous medical documentation, such as recent hospitalizations, office visits, and/or recent consultations with PCP/specialist. SDOH: Another factor that I considered in Adalids care was her Social Determinants of Health (SDOH). During this UC encounter, she did not have social determinants of health. Those SDOH influencing Adalids care are: none Vel Mccurdy CNP [facility] [phone] [facility] Work Phone: 1([phone]) 142-547910-26-2023 History of Present illness Narrative* MONICA Carbajal - 09/14/2023 12:40 PM EDT Subjective Patient ID: Gerald Miller is a 27 y.o. female who presents for Anemia (Pt states she was diagnosed 4 months ago ) and Anxiety (Pt states her anxiety has increased within the last 4 months ). HPI: Presents today for C/O ANXIETY X SEVERAL YEARS modifying factors consists of DENIES DEPRESSION OR SUICIDAL IDEATION associated symptoms consist of DIZZINESS prior treatment consists of medication HYDROXYZINE H/O LOW IRON Visit Vitals BP 132/74 (BP Location: Right arm, Patient Position: Sitting) Pulse 82 Ht 1.6 m (5' 3) Wt 81.6 kg (180 lb) Yes BMI 31.89 kg/m OB Status Recent Smoking Status Never BSA 1.9 m Review of Systems Constitutional: Negative for chills, fatigue, fever and unexpected weight change. HENT: Negative for congestion, ear pain, sore throat and trouble swallowing. Eyes: Negative for photophobia, pain, redness and visual disturbance. Respiratory: Negative for apnea, cough, choking, chest tightness, shortness of breath and wheezing. Cardiovascular: Negative for chest pain, palpitations and leg swelling. Gastrointestinal: Negative for abdominal distention, abdominal pain, blood in stool, constipation, diarrhea, nausea and vomiting. Genitourinary: Negative for difficulty urinating, dysuria, flank pain, frequency, hematuria and urgency. Musculoskeletal: Negative for arthralgias, back pain, gait problem, joint swelling, myalgias and neck pain. Skin: Negative for rash and wound. Neurological: Negative for dizziness, seizures, syncope, facial asymmetry, speech difficulty, weakness, numbness and headaches. Psychiatric/Behavioral: Negative for confusion, sleep disturbance and suicidal ideas. The patient is not nervous/anxious. Objective IO EKG NSR Physical Exam Constitutional: Appearance: Normal appearance. She is normal weight. HENT: Head: Normocephalic. Eyes: Extraocular Movements: Extraocular movements intact. Conjunctiva/sclera: Conjunctivae normal. Pupils: Pupils are equal, round, and reactive to light. Cardiovascular: Rate and Rhythm: Normal rate and regular rhythm. Pulses: Normal pulses. Heart sounds: Normal heart sounds. Pulmonary: Effort: Pulmonary effort is normal. Breath sounds: Normal breath sounds. Musculoskeletal: General: Normal range of motion. Cervical back: Normal range of motion. Skin: General: Skin is warm and dry. Neurological: General: No focal deficit present. Mental Status: She is alert and oriented to person, place, and time. Psychiatric: Mood and Affect: Mood normal. Behavior: Behavior normal. Thought Content: Thought content normal. Judgment: Judgment normal. Assessment/Plan Problem List Items Addressed This Visit Generalized anxiety disorder with panic attacks - Primary Relevant Medications PARoxetine (Paxil) 10 mg tablet busPIRone (Buspar) 5 mg tablet Other Relevant Orders Hemoglobin A1C Comprehensive Metabolic Panel Lipid Panel TSH with reflex to Free T4 if abnormal Iron and TIBC CBC and Auto Differential Vitamin D 25-Hydroxy,Total (for eval of Vitamin D levels) Vitamin B12 Folate Ferritin Dizziness Relevant Orders ECG 12 Lead (Completed) Hemoglobin A1C Comprehensive Metabolic Panel Lipid Panel TSH with reflex to Free T4 if abnormal Iron and TIBC CBC and Auto Differential Vitamin D 25-Hydroxy,Total (for eval of Vitamin D levels) Vitamin B12 Folate Ferritin Seasonal allergies Relevant Medications loratadine (Claritin) 10 mg tablet fluticasone (Flonase) 50 mcg/actuation nasal spray Other Relevant Orders Hemoglobin A1C Comprehensive Metabolic Panel Lipid Panel TSH with reflex to Free T4 if abnormal Iron and TIBC CBC and Auto Differential Vitamin D 25-Hydroxy,Total (for eval of Vitamin D levels) Vitamin B12 Folate Ferritin Low iron Relevant Orders Hemoglobin A1C Comprehensive Metabolic Panel Lipid Panel TSH with reflex to Free T4 if abnormal Iron and TIBC CBC and Auto Differential Vitamin D 25-Hydroxy,Total (for eval of Vitamin D levels) Vitamin B12 Folate Ferritin WE DISCUSSED MOST COMMON SIDE EFFECTS OF PRESCRIBED MEDICATIONS. INDICATIONS, RISK, COMPLICATIONS, AND ALTERNATIVES OF MEDICATION/THERAPEUTICS WERE EXPLAINED AND DISCUSSED. PLEASE MONITOR CLOSELY FORANY UNTOWARD SIDE EFFECTS OR COMPLICATIONS OF MEDICATIONS. PATIENT IS STRONGLY ADVISED TO BE COMPLIANT WITH RECOMMENDATIONS. QUESTIONS AND CONCERNS WERE ADDRESSED. INSTRUCTED TO CALL, RETURN SOONER, OR GO TO THE ER, IF SYMPTOMS PERSIST OR WORSEN. THEY VOICED UNDERSTANDING AND DENIES FURTHER QUESTIONS AT THIS TIME. TIME CODE 1. PREPARATION FOR PATIENT'S VISIT (REVIEWING CHART, CURRENT MEDICAL RECORDS, OUTSIDE HEALTH PROVIDER RECORDS, PREVIOUS HISTORY, EXAM, TEST, PROCEDURE, AND MEDICATIONS) 2. FACE TO FACE ENCOUNTER OBTAINING HISTORY FROM THE PATIENT/FAMILY/CAREGIVERS; PERFORMING EVALUATION AND EXAMINATION; ORDERING TESTS OR PROCEDURES; REFERRING AND COMMUNICATING WITH OTHER HEALTHCARE PROVIDERS; COUNSELING AND EDUCATION OF THE PATIENT/FAMILY/CAREGIVERS; INDEPENDENTLY INTERPRETING RESULTS (TESTS, LABS, PROCEDURES, IMAGING) AND COMMUNICATING AND EXPLAINING RESULTS TO THE PATIENT/FAMILY/CAREGIVERS 3. COORDINATION OF CARE; PREPARING AND PRINTING DISCHARGE INSTRUCTIONS AND ANY EDUCATIONAL MATERIALFOR THE PATIENT/FAMILY/CAREGIVERS. DOCUMENTING CLINICAL INFORMATION IN THE ELECTRONIC MEDICAL RECORD 4. REVIEWING OARRS NEEDED MDM 1) COMPLEXITY: MORE THAN 1 STABLE CHRONIC CONDITION ADDRESSED OR 1 ACUTE ILLNESS ADDRESSED 2)DATA: TESTS INTERPRETED AND OR ORDERED, TOOK INDEPENDENT HISTORY OR RECORDS REVIEWED 3)RISK: MODERATE RISK DUE TO NATURE OF MEDICAL CONDITIONS/COMORBIDITY OR MEDICATIONS ORDERED OR SURGICAL OR PROCEDURE REFERRAL 1 MONTH MED CHECK documented in this [facility] Work Phone: 1(885) 871-190507-01-2023 Progress note Author Flores Lyons [facility] May 20, 2023 10:35am Note Date/Time May 20, 2023 10:35 am [facility] Medical Records Department [address] [place] [address] Progress Note - OBGYN 05/20/23 1033 MR#: [id number] Acct: [id number] Name: GERALD MILLER Rep #:[id number] : 1995 27 From: Flores Vasquez DO PCP: Care Physician,No Primary Status :ADM IN Location: [id number] Subjective Subjective Patient is laying in bed comfortably without complaints. She states that she slept on an off during the night. Lochia is mild and pain is minimal. Objective Data Objective Data Vital Signs: Vital Signs Temp Pulse Resp BP Pulse Ox O2 Del Method 96.8 F L 79 16 122/63 H 98 Room Air 05/20/23 08:30 05/20/23 08:30 05/20/23 08:30 05/20/23 08:30 05/20/23 08:30 05/20/23 08:30 Oxygen Delivery Method Room Air Weight: 215 lb 9.793 oz Body Mass Index (BMI) 38.2 Intake & Output: Intake and Output for Last 24 Hours 05/18/23 05/19/23 05/20/23 23:59 23:59 23:59 Intake Total 2881.67 / 2881.67 Output Total 2425 / 2425 975 / 975 Balance 456.67 / 456.67 -975 / -975 Lab / Micro Data 05/20/23 06:20 Labs: Laboratory Results - last 24 hr 05/20/23 06:20: WBC 14.5 H, RBC 3.59 L, Hgb 10.5 L, Hct 33.3 L, MCV 92.8 D, MCH29.2, MCHC 31.5 L D, RDW Std Deviation 48.2 H, RDW Coeff of Sherif 14.4, Plt Count 145 L, MPV 11.1 ROS Constitutional Constitutional: Reports systems reviewed and no addt'l complaints, except as documented Cardiovascular Cardiovascular: Denies chest pain, dizziness, dyspnea or irregular heart rhythm Respiratory/Chest Respiratory/Chest: Denies cough, pain on inspiration or shortness of breath at rest Gastrointestinal Gastrointestinal: Denies abdominal pain, nausea or vomiting Genitourinary Genitourinary: Denies burning urination Musculoskeletal Musculoskeletal: Denies muscle cramps, muscle spasms or muscle weakness Neurologic Neurologic: Denies confusion, dizziness, headache(s) or lack of coordination Psychiatric Psychiatric: Denies anxiety, behavioral changes or depression Physical Exam HEENT normocephalic Resp normal respiratory effort and normal air movement GI soft to palpation, non-tender and non-distended Rectal Exam: other Other Details: Incision is clean, dry, and intact no CVA tenderness Extremity normal to inspection General Extremity: edema bilateral (trace ) Assessment & Plan (1) Status post section routine follow-up: PLAN: s/p LTCS PPD #1 1. routine post care 2. breast feeding- support given 3. rh positive 4. rubella immune 5. 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 05/19/23 0712 MR#: [id number] Acct: [id number] Name: LULU MILLERTala CORTÉS Rep #:[id number] : 1995 27 From: Angelia paige MD PCP: Care Physician,No Primary Status :ADM IN [facility] - General General Date of Admission: 05/19/23 HPI Narrative GERALD MILLER, is a 27 F [facility] Maternal Data Information SAJAN Calculator Estimated Delivery Date Method Current WG Current Estimate 06/08/23 Ultrasound #2 37w 1d Other Estimates 06/19/23 LMP (Uncertain) 35w 4d PFSH PFSH Medical History (Updated 05/19/23 @ 05:58 by Hussain Portillo) Anxiety Anxiety Gestational HTN History of miscarriage History of pre-term labor History of premature rupture of membranes (PPROM) Home Medications vitamin#30 30 mg iron-10 mg iron-folic acid 1 mg-omg3 capsule 1 cap PO DAILY 12/24/20 [History Last Taken 05/18/23] labetalol 200 mg tablet 50 mg PO BID bp 03/15/23 [History Last Taken 05/18/23] progesterone micronized 200 mg capsule (Prometrium) 200 mg vaginal ONCE 04/04/23 [History Last Taken 04/29/23 08:00] aspirin 81 mg PO/SL DAILY 04/30/23 [History Last Taken 05/12/23] Allergy/AdvReac Type Severity Reaction Status Date / Time No Known Allergies Allergy Verified 05/19/23 05:10 Surgical History (Updated 05/19/23 @ 05:58 by Hussain Portillo) H/O dilation and curettage Hx of wisdom tooth extraction Previous section S/P Social History adopted: No household members: spouse and children housing: house number of children: 2 current occupational status: employed 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 current occupational exposures/hazards: No pets and animals: Yes (not managing litterbox) pets and animals: cat(s) and dog(s) history of recent travel: No sexually active: Yes Smoking Status: Never smoker alcohol intake: never substance use type: does not use well-balanced diet: daily or most days caffeine: Yes Type: carbonated beverages Number of servings: 1 eating out: 1-3 times/week during the past year weight has: remained stable what type of physical activity do you participate in: none khai/episcopal: Religion seatbelt use: always do you feel safe at home: Yes 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 Date Name GA/Weeks Outcome Route Bth Weight Infant Gen Labor Lgth Anesthesia Del Locatn Provider FOB 11/23/18 Elijah 38 live - full term 7lbs 4oz Male Juan F TJ 12/24/20 Rojas 35 live - 6lbs 4oz Male trace jackson [facility] Dr. Dailey Delivery Date: 11/23/18 Last Updated by: Andie Breaux CAT II FHT Delivery Date: 12/24/20 Last Updated by: Delmy Welsh PPROM Visit Details Expected Delivery Route/Plan patient counseled regarding risks/benefits of trial of labor versus repeat . ACOG/uptodate education given to patient. She wishes to be educated more and think about a after 2 sections. 50/7% % likelihood of success per calculator TOLAC consent form signed: []1 Plans Covid status: discussed Flu vaccine: discussed Tdap vaccine: given Rhogam:na LARC form signed: yes movement and labor precautions reviewed. Problem list reviewed and updated with the most current plan of care details and appropriate orders placed. Relevant counseling for the gestational age provided. Continue routine care and follow up unless otherwise noted in visit notes/problem list details OB Flowsheet Initial Weight: Not Recorded Date -?-?-?-?-?-?-?-?-?-?-?-?- EGA Weight BP Urine Prot -?-?-?-?-?-?-?-?-?-?-?-?- Glucose FHR FuHt Pres Dilation -?-?-?-?-?-?-?-?-?-?-?-?- Effaced St Visit Note 11/08/22 -?-?-?-?-?-?-?-?-?-?-?-?- 9w 5d 166 lb 8 oz 147/88 -?-?-?-?-?-?-?-?-?-?-?-?- 189 -?-?-?-?-?-?-?-?-?-?-?-?- JV- 2.5 cm subch orionic hem present near the cervix. Single live IUP measuring 9weeks 5 days. New sajan 06/08/22 11/24/22 -?-?-?-?-?-?-?-?-?-?-?-?- 12w 0d 171 lb 6 oz 138/81 Nega tive -?-?-?-?-?-?-?-?-?-?-?-?- Negative 155 -?-?-?-?-?-?-?-?-?-?-?-?- JV- no bleeding, patient has decided to do genetic testing. repeat ultrasound performed today. 12/23/22 -?-?-?-?-?-?-?-?-?-?-?-?- 16w 1d 172 lb 8 oz 150/88 Nega tive -?-?-?-?-?-?-?-?-?-?-?-?- Negative 156 -?-?-?-?-?-?-?-?-?-?-?-?- JV- no further b leeding. NOEMY resolved on today's ultrasound. anatomy scan scheduled. pt still has intermittent high blood pressure and c/o intermittent chest pressure. consulting cardiology and she is informed to go to ER next time has the pain. 01/25/23 -?-?-?-?-?-?-?-?-?-?-?-?- 20w 6d 182 lb 2 oz 128/80 Nega tive -?-?-?-?-?-?-?-?-?-?-?-?- Negative 149 -?-?-?-?-?-?-?-?-?-?-?-?- MH-No VB, LOF. A nterior placenta so just light kicks. No concerns 02/17/23 -?-?-?-?-?-?-?-?-?-?-?-?- 24w 1d 188 lb 8 oz 136/85 Nega tive -?-?-?-?-?-?-?-?-?-?-?-?- Negative 155 -?-?-?-?-?-?-?-?-?-?-?-?- KW-no lof/vb/ctx . +fm Planning Tdap, and 28 week labs. to track BPs at home and start vaginal progesterone. SHe would like to try a with this . Sign TOLAC form next visit. 03/15/23 -?-?-?-?-?-?-?-?-?-?-?-?- 27w 6d 195 lb 8 oz 134/80 Nega tive -?-?-?-?-?-?-?-?-?-?-?-?- Negative 150 28 -?-?-?-?-?-?-?-?-?-?-?-?- MH-No VB, lof. G ood FM. 28 wk labs, larc. 03/31/23 -?-?-?-?-?-?-?-?-?-?-?-?- 30w 1d 202 lb 147/73 135/81 Negative -?-?-?-?-?-?-?-?-?-?-?-?- Negative 140 30 -?-?-?-?-?-?-?-?-?-?-?-?- SM- no vb lof go od fm nor egualr ctx. discussed plan of delivery by 37 recommend RLTCS unless very favorable for IOL. 04/11/23 -?-?-?-?-?-?-?-?-?-?-?-?- 31w 5d 201 lb 8 oz 137/81 Nega tive -?-?-?-?-?-?-?-?-?-?-?-?- Negative 140 -?-?-?-?-?-?-?-?-?-?-?-?- SM- no vb lof go o dfm no regular ctx labs ordered 04/14/23 -?-?-?-?-?-?-?-?-?-?-?-?- 32w 1d 206 lb 2 oz 133/76 Nega tive -?-?-?-?-?-?-?-?-?-?-?-?- Negative 140 -?-?-?-?-?-?-?-?-?-?-?-?- JV- reactive NST . growth 93rd %. needs pih labs weekly. bp stable today 04/18/23 -?-?-?-?-?-?-?-?-?-?-?-?- 32w 5d 206 lb 130/60 Negative -?-?-?-?-?-?-?-?-?-?-?-?- Negative 140 -?-?-?-?-?-?-?-?-?-?-?-?- KW-+FM, no lof/v b/ctx. PCR increased last visit. repeat labs and Celestone. reactive NST KW-+FM, no lof/vb/ctx. tdap today. PCR increased last visit. repeat labs and Celestone. reactive NST discusses POC with SM. 04/24/23 -?-?-?-?-?-?-?-?-?-?-?-?- 33w 4d 205 lb 130/89 Negative -?-?-?-?-?-?-?-?-?-?-?-?- Negative 150 -?--?-?-?-?-?-?-?-?-?-?-?- SM- no vb lof go od fm no reuglar ctx just cramping and loose stoole no PARRY BV pree labs today schedule US in 2 weeks 04/27/23 -?-?-?-?-?-?-?-?-?-?-?-?- 34w 0d 206 lb 4 oz 128/70 Nega tive -?-?-?-?-?-?-?-?-?-?-?-?- Negative 140 -?-?-?-?-?-?-?-?-?-?-?-?- SM- no PARRY BV vb lof good fm no regular ctx 05/02/23 -?-?-?-?-?-?-?-?-?-?-?-?- 34w 5d 210 lb 4 oz 137/84 Nega tive -?-?-?-?-?-?-?-?-?-?-?-?- Negative 160 -?-?-?-?-?-?-?-?-?-?-?-?- MH-NST only reac tive 05/05/23 -?-?-?-?-?-?-?-?-?-?-?-?- 35w 1d 210 lb 137/78 137/78 Negative -?-?-?-?-?-?-?-?-?-?-?-?- Negative 175 -?-?-?-?-?-?-?-?-?-?-?-?- KW-+FM and cramp ing, no vb/lof. nonreactive NST-to WP-JV aware 05/08/23 -?-?-?-?-?-?-?-?-?-?-?-?- 35w 4d 213 lb 136/83 -?-?-?-?-?-?-?-?-?-?-?-?- 165 -?-?-?-?-?-?-?-?-?-?-?-?- KW-NST only. larisa ctive. labs repeated today 05/11/23 -?-?-?-?-?-?-?-?-?-?-?-?- 36w 0d 213 lb 2 oz 131/78 Nega tive -?-?-?-?-?-?-?-?-?-?-?-?- Negative 150 Cephalic 0 -?-?-?-?-?-?-?-?-?-?-?-?- JV- nst reactive and gbs collected. planning delivery next monday via rpt cs. 05/15/23 -?-?-?-?-?-?-?-?-?-?-?-?- 36w 4d 215 lb 4 oz 132/83 Nega tive -?-?-?-?-?-?-?-?-?-?-?-?- Negative 140 Cephalic -?-?-?-?-?-?-?-?-?-?-?-?- SM- no vb lof go od fm no regular ctx NST FHR Rate Baby A Baseline: 130 Variability:: Moderate Accelerations:: 15 x 15 Decelerations:: None NST Reactive:: Yes FHR Category:: Category I Uterine Activity:: irregular ROS Constitutional Constitutional: Reports systems reviewed and no addt'l complaints, except as documented Eyes Eyes: Denies change in vision ENT HEENT: Reports systems reviewed and no addt'l complaints, except as documented; Denies headache(s) Cardiovascular Cardiovascular: Reports systems reviewed and no addt'l complaints, except as documented; Denies chest pain or dyspnea Respiratory/Chest Respiratory/Chest: Reports systems reviewed and no addt'l complaints, except as documented Gastrointestinal Gastrointestinal: Reports systems reviewed and no addt'l complaints, except as documented; Denies abdominal pain Genitourinary Genitourinary: Reports systems reviewed and no addt'l complaints, except as documented, contractions Details: present (irregular) and movement Details: present; Denies dysuria or genital lesions Musculoskeletal Musculoskeletal: Reports systems reviewed and no addt'l complaints, except as documented Neurologic Neurologic: Reports systems reviewed and no addt'l complaints, except as documented Endocrine Endocrinology: Reports systems reviewed and no addt'l complaints, except as documented Vital Signs Vital Signs Vital Signs: 05/19/23 06:04 Temperature 97.6 F L Temperature Source Temporal Pulse Rate 100 Respiratory Rate 16 Blood Pressure 137/88 H Blood Pressure Mean 104 Blood Pressure Source Monitor Blood Pressure Position Sitting Blood Pressure Location Left Arm Pulse Ox 97 Oxygen Delivery Method Room Air Weight Weight: 215 lb 9.793 oz Body Mass Index (BMI) 38.2 Physical Exam Const alert, oriented x3, no apparent distress and healthy appearing HEENT normocephalic and moist oral mucous membranes Head and Scalp: atraumatic Neck full ROM, no lymphadenopathy, supple and thyroid normal General: trachea midline Lymph Lymphatic: no lymphadenopathy noted Chest inspection of chest normal Resp normal respiratory effort Cardio regular rate GI normal to inspection, nondistended, normoactive bowel sounds, soft to palpation and non-tender Inspection: gravid external exam normal Manual OB Exam: estimated gestational size appropriate, presentation cephalic, dilated, effaced and station Extremity normal to inspection General Extremity: Negative for edema Skin no rashes or lesions noted Neuro no focal motor deficits and deep tendon reflexes 2+ bilaterally Motor Exam: strength 5/5 throughout and clonus absent Psych mental status grossly normal Labs Labs Labs: Blood Type O POSITIVE Antibody Screen NEGATIVE Hct 36.3 % (37-47) L Hgb 12.2 g/dL (12.0-15.0) Obstetrics US Syphilis Total Ab Non-reactive Rubella IgG Antibody Reactive (Nonreactive) Hep Bs Antigen Non-Reactive (Nonreactive) Chlamydia DNA (DAVID) Negative (Negative) Neisseria gonorrhoeae DNA (DAVID) Negative (Negative) HIV 1&2 Antibody Non-Reactive (Nonreactive) Glucose 1 Hr 50 gm 123 mg/dL (70-140) Rhogam given: No Assessment & Plan (1) Gestational thrombocytopenia: COMMENT: discussed with MFM on 05/05. no need to deliver prior to 37 weeks unless plts less than 100k and other signs leading to diagnosis of hellp. 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 NSTs-2x weekly starting at 32 weeks. Continue Labetalol. home BPs 2 x daily per MFM. weekly labs (3) Desires (vaginal after ) trial: COMMENT: 15%- discussed with pt. plan RLTCS at 37 due to GHTN unless labor or very favorable cervix. RLTCS scheduled for 05/19 @ 7:10 with SM (4) Hx of delivery, currently : COMMENT: vaginal progesterone 200mg until 37 weeks (5) History of delivery: COMMENT: history of 2 sections. first was for unknown reason per patient and 2nd was repeat section for srom at 35 weeks. wants to discuss . chance of success 50% (6) Seasonal allergies: COMMENT: all year (7) Supervision of high risk , antepartum: COMMENT: [id number], SAJAN 06/19/23 Boy Ramakrishna! PC Rojas Nava TJ (8) : QUALIFIERS: Weeks of gestation: 36 weeks Qualified Code(s): Z3A.36 - 36 weeks gestation of COMMENT: GBS Negative, NIPT low risk, discussed carrier testing. Anatomy US normal. (9) Anxiety: COMMENT: stable PLAN: Plan plan RLTCS 05/19/23 0714 <Electronically signed by Angelia Colindres MD> Cosigner Signature (if applicable): CC: Dr. Angelia Colindres MD; No Primary Care Physician~ Signed [facility] Work Phone: [email or web address] noteNo assessment information available [facility] Work Phone: evaluation note* Diagnosis Onset Date Resolution Status Anxiety acute History of delivery acute acute Seasonal allergies acute Supervision of high risk , antepartum acute [facility] Work Phone: Evaluation note* Diagnosis Onset Date Resolution Status Anxiety acute History of delivery acute acute Seasonal allergies acute Supervision of high risk , antepartum acute Anxiety acute History of delivery acute acute Seasonal allergies acute Supervision of high risk , antepartum acute Anxiety acute History of delivery acute acute Seasonal allergies acute Supervision of high risk , antepartum acute Anxiety acute History of delivery acute acute Supervision of high risk , antepartum acute [facility] Work Phone: Evaluation note* Diagnosis Onset Date Resolution Status Anxiety acute History of delivery acute acute Seasonal allergies acute Supervision of high risk , antepartum acute Anxiety acute History of delivery acute acute Seasonal allergies acute Supervision of high risk , antepartum acute Anxiety acute History of delivery acute acute Seasonal allergies acute Supervision of high risk , antepartum acute Anxiety acute History of delivery acute acute Supervision of high risk , antepartum acute Anxiety acute Elevated blood pressure affecting , antepartu m acute acute Supervision of high risk , antepartum acute [facility] Work Phone: Evaluation note* Diagnosis Onset Date Resolution Status Anxiety acute History of delivery acute acute Seasonal allergies acute Supervision of high risk , antepartum acute Anxiety acute History of delivery acute acute Seasonal allergies acute Supervision of high risk , antepartum acute Anxiety acute History of delivery acute acute Supervision of high risk , antepartum acute Anxiety acute Elevated blood pressure affecting , antepartu m acute acute Supervision of high risk , antepartum acute Anxiety acute Desires (vaginal after ) trial acute Elevated blood pressure affecting , antepartu m acute History of delivery acute Hx of delivery, currently acute acute Seasonal allergies acute Supervision of high risk , antepartum acute Anxiety acute Desires (vaginal after ) trial acute Elevated blood pressure affecting , antepartu m acute History of delivery acute Hx of delivery, currently acute acute Seasonal allergies acute Supervision of high risk , antepartum acute [facility] Work Phone: Evaluation note* Diagnosis Onset Date Resolution Status Anxiety acute History of delivery acute acute Seasonal allergies acute Supervision of high risk , antepartum acute Anxiety acute History of delivery acute acute Supervision of high risk , antepartum acute Anxiety acute acute Supervision of high risk , antepartum acute Elevated blood pressure affe cting , antepartum resolved Anxiety acute Desires (vaginal after ) trial acute History of delivery acute Hx of delivery, currently acute acute Seasonal allergies acute Supervision of high risk , antepartum acute Elevated blood pressure affe cting , antepartum resolved Anxiety acute Desires (vaginal after ) trial acute History of delivery acute Hx of delivery, currently acute acute Seasonal allergies acute Supervision of high risk , antepartum acute Elevated blood pressure affe cting , antepartum resolved Anxiety acute Desires (vaginal after ) trial acute History of delivery acute Hx of delivery, currently acute acute Seasonal allergies acute Supervision of high risk , antepartum acute Gestational hypertension res olved History of delivery acute Hx of delivery, currently acute acute Supervision of high risk , antepartum acute Gestational hypertension res olved Anxiety acute Desires (vaginal after ) trial acute History of delivery acute Hx of delivery, currently acute acute Seasonal allergies acute Supervision of high risk , antepartum acute Gestational hypertension res olved Anxiety acute Desires (vaginal after ) trial acute History of delivery acute Hx of delivery, currently acute acute Seasonal allergies acute Supervision of high risk , antepartum acute Gestational hypertension res olved Anxiety acute Desires (vaginal after ) trial acute History of delivery acute Hx of delivery, currently acute acute 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 Seasonal allergies acute Supervision of high risk , antepartum acute [facility] Work Phone: Evaluation note* Diagnosis Onset Date Resolution Status Anxiety acute History of delivery acute acute Seasonal allergies acute Supervision of high risk , antepartum acute Anxiety acute History of delivery acute acute Supervision of high risk , antepartum acute Anxiety acute acute Supervision of high risk , antepartum acute Elevated blood pressure affe cting , antepartum resolved Anxiety acute Desires (vaginal after ) trial acute History of delivery acute Hx of delivery, currently acute acute Seasonal allergies acute Supervision of high risk , antepartum acute Elevated blood pressure affe cting , antepartum resolved Anxiety acute Desires (vaginal after ) trial acute History of delivery acute Hx of delivery, currently acute acute Seasonal allergies acute Supervision of high risk , antepartum acute Elevated blood pressure affe cting , antepartum resolved Anxiety acute Desires (vaginal after ) trial acute History of delivery acute Hx of delivery, currently acute acute Seasonal allergies acute Supervision of high risk , antepartum acute Gestational hypertension res olved History of delivery acute Hx of delivery, currently acute acute Supervision of high risk , antepartum acute Gestational hypertension res olved Anxiety acute Desires (vaginal after ) trial acute History of delivery acute Hx of delivery, currently acute acute Seasonal allergies acute Supervision of high risk , antepartum acute Gestational hypertension res olved Anxiety acute Desires (vaginal after ) trial acute History of delivery acute Hx of delivery, currently acute acute Seasonal allergies acute Supervision of high risk , antepartum acute Gestational hypertension res olved Anxiety acute Desires (vaginal after ) trial acute History of delivery acute Hx of delivery, currently acute acute 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 Seasonal allergies acute Supervision of high risk , antepartum acute History of delivery acute Hx of delivery, currently acute acute 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 Supervision of high risk , antepartum acute [facility] Work Phone: Evaluation note* Diagnosis Onset Date Resolution Status Anxiety acute History of delivery acute acute Supervision of high risk , antepartum acute Anxiety acute acute Supervision of high risk , antepartum acute Elevated blood pressure affe cting , antepartum resolved Anxiety acute Desires (vaginal after ) trial acute History of delivery acute Hx of delivery, currently acute acute Seasonal allergies acute Supervision of high risk , antepartum acute Elevated blood pressure affe cting , antepartum resolved Anxiety acute Desires (vaginal after ) trial acute History of delivery acute Hx of delivery, currently acute acute Seasonal allergies acute Supervision of high risk , antepartum acute Elevated blood pressure affe cting , antepartum resolved Anxiety acute Desires (vaginal after ) trial acute History of delivery acute Hx of delivery, currently acute acute Seasonal allergies acute Supervision of high risk , antepartum acute Gestational hypertension res olved History of delivery acute Hx of delivery, currently acute acute Supervision of high risk , antepartum acute Gestational hypertension res olved Anxiety acute Desires (vaginal after ) trial acute History of delivery acute Hx of delivery, currently acute acute Seasonal allergies acute Supervision of high risk , antepartum acute Gestational hypertension res olved Anxiety acute Desires (vaginal after ) trial acute History of delivery acute Hx of delivery, currently acute acute Seasonal allergies acute Supervision of high risk , antepartum acute Gestational hypertension res olved Anxiety acute Desires (vaginal after ) trial acute History of delivery acute Hx of delivery, currently acute acute 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 Seasonal allergies acute Supervision of high risk , antepartum acute History of delivery acute Hx of delivery, currently acute acute 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 Supervision of high risk , antepartum acute Anxiety acute Desires (vaginal after ) trial acute History of delivery acute Hx of delivery, currently acute acute 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 Seasonal allergies acute Supervision of high risk , antepartum acute Anxiety acute Desires (vaginal after ) trial acute History of delivery acute Hx of delivery, currently acute acute 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 Seasonal allergies acute Supervision of high risk , antepartum acute [place] [facility] Work Phone: Evaluation note* Diagnosis Onset Date Resolution Status Anxiety acute History of delivery acute acute Supervision of high risk , antepartum acute Anxiety acute acute Supervision of high risk , antepartum acute Elevated blood pressure affe cting , antepartum resolved Anxiety acute Desires (vaginal after ) trial acute History of delivery acute Hx of delivery, currently acute acute Seasonal allergies acute Supervision of high risk , antepartum acute Elevated blood pressure affe cting , antepartum resolved Anxiety acute Desires (vaginal after ) trial acute History of delivery acute Hx of delivery, currently acute acute Seasonal allergies acute Supervision of high risk , antepartum acute Elevated blood pressure affe cting , antepartum resolved Anxiety acute Desires (vaginal after ) trial acute History of delivery acute Hx of delivery, currently acute acute Seasonal allergies acute Supervision of high risk , antepartum acute Gestational hypertension res olved History of delivery acute Hx of delivery, currently acute acute Supervision of high risk , antepartum acute Gestational hypertension res olved Anxiety acute Desires (vaginal after ) trial acute History of delivery acute Hx of delivery, currently acute acute Seasonal allergies acute Supervision of high risk , antepartum acute Gestational hypertension res olved Anxiety acute Desires (vaginal after ) trial acute History of delivery acute Hx of delivery, currently acute acute Seasonal allergies acute Supervision of high risk , antepartum acute Gestational hypertension res olved Anxiety acute Desires (vaginal after ) trial acute History of delivery acute Hx of delivery, currently acute acute 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 Seasonal allergies acute Supervision of high risk , antepartum acute History of delivery acute Hx of delivery, currently acute acute 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 Supervision of high risk , antepartum acute Anxiety acute Desires (vaginal after ) trial acute History of delivery acute Hx of delivery, currently acute acute 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 Seasonal allergies acute Supervision of high risk , antepartum acute Anxiety acute Desires (vaginal after ) trial acute History of delivery acute Hx of delivery, currently acute acute 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 Seasonal allergies acute Supervision of high risk , antepartum acute Anxiety acute Desires (vaginal after ) trial acute History of delivery acute Hx of delivery, currently acute acute 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 Seasonal allergies acute Supervision of high risk , antepartum acute Anxiety acute Desires (vaginal after ) trial acute History of delivery acute Hx of delivery, currently acute acute 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 Seasonal allergies acute Supervision of high risk , antepartum acute Desires (vaginal after ) trial acute History of delivery acute Hx of delivery, currently acute acute 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 Supervision of high risk , antepartum acute Anxiety acute Desires (vaginal after ) trial acute History of delivery acute Hx of delivery, currently acute acute 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 Seasonal allergies acute Supervision of high risk , antepartum acute Anxiety acute Desires (vaginal after ) trial acute Gestational thrombocytopenia acute History of delivery acute Hx of delivery, currently acute acute 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 Seasonal allergies acute Supervision of high risk , antepartum acute [facility] [facility] Work Phone: Evaluation note* Diagnosis Onset Date Resolution Status Anxiety acute History of delivery acute acute Supervision of high risk , antepartum acute Anxiety acute acute Supervision of high risk , antepartum acute Elevated blood pressure affe cting , antepartum resolved Anxiety acute Desires (vaginal after ) trial acute History of delivery acute Hx of delivery, currently acute acute Seasonal allergies acute Supervision of high risk , antepartum acute Elevated blood pressure affe cting , antepartum resolved Anxiety acute Desires (vaginal after ) trial acute History of delivery acute Hx of delivery, currently acute acute Seasonal allergies acute Supervision of high risk , antepartum acute Elevated blood pressure affe cting , antepartum resolved Anxiety acute Desires (vaginal after ) trial acute History of delivery acute Hx of delivery, currently acute acute Seasonal allergies acute Supervision of high risk , antepartum acute Gestational hypertension res olved History of delivery acute Hx of delivery, currently acute acute Supervision of high risk , antepartum acute Gestational hypertension res olved Anxiety acute Desires (vaginal after ) trial acute History of delivery acute Hx of delivery, currently acute acute Seasonal allergies acute Supervision of high risk , antepartum acute Gestational hypertension res olved Anxiety acute Desires (vaginal after ) trial acute History of delivery acute Hx of delivery, currently acute acute Seasonal allergies acute Supervision of high risk , antepartum acute Gestational hypertension res olved Anxiety acute Desires (vaginal after ) trial acute History of delivery acute Hx of delivery, currently acute acute 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 Seasonal allergies acute Supervision of high risk , antepartum acute History of delivery acute Hx of delivery, currently acute acute 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 Supervision of high risk , antepartum acute Anxiety acute Desires (vaginal after ) trial acute Gestational thrombocytopenia acute History of delivery acute Hx of delivery, currently acute acute 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 Seasonal allergies acute Supervision of high risk , antepartum acute Anxiety acute Desires (vaginal after ) trial acute History of delivery acute Hx of delivery, currently acute acute 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 Seasonal allergies acute Supervision of high risk , antepartum acute Anxiety acute Desires (vaginal after ) trial acute History of delivery acute Hx of delivery, currently acute acute 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 Seasonal allergies acute Supervision of high risk , antepartum acute Anxiety acute Desires (vaginal after ) trial acute History of delivery acute Hx of delivery, currently acute acute 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 Seasonal allergies acute Supervision of high risk , antepartum acute Anxiety acute Desires (vaginal after ) trial acute History of delivery acute Hx of delivery, currently acute acute 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 Seasonal allergies acute Supervision of high risk , antepartum acute Desires (vaginal after ) trial acute History of delivery acute Hx of delivery, currently acute acute 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 Supervision of high risk , antepartum acute Anxiety acute Desires (vaginal after ) trial acute History of delivery acute Hx of delivery, currently acute acute 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 Seasonal allergies acute Supervision of high risk , antepartum acute Anxiety acute Desires (vaginal after ) trial acute Gestational thrombocytopenia acute History of delivery acute Hx of delivery, currently acute acute 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 Seasonal allergies acute Supervision of high risk , [facility]partum [facility] Work [facility]: Evaluation note* Diagnosis Onset Date Resolution Status Anxiety resolved History of delivery resolved resolved Supervision of high risk , antepartum resolved Anxiety resolved Elevated blood pressure affe cting , antepartum resolved resolved Supervision of high risk , antepartum resolved Anxiety resolved Desires (vaginal after ) trial resolved Elevated blood pressure affe cting , antepartum resolved History of delivery resolved Hx of delivery, currently resolved resolved Seasonal allergies resolved Supervision of high risk , antepartum resolved Anxiety resolved Desires (vaginal after ) trial resolved Elevated blood pressure affe cting , antepartum resolved History of delivery resolved Hx of delivery, currently resolved resolved Seasonal allergies resolved Supervision of high risk , antepartum resolved Anxiety resolved Desires (vaginal after ) trial resolved Gestational hypertension res olved History of delivery resolved Hx of delivery, currently resolved resolved Seasonal allergies resolved Supervision of high risk , antepartum resolved Gestational hypertension res olved History of delivery resolved Hx of delivery, currently resolved resolved Supervision of high risk , antepartum resolved Anxiety resolved Desires (vaginal after ) trial resolved Gestational hypertension res olved History of delivery resolved Hx of delivery, currently resolved resolved Seasonal allergies resolved Supervision of high risk , antepartum resolved Anxiety resolved Desires (vaginal after ) trial resolved Gestational hypertension res olved History of delivery resolved Hx of delivery, currently resolved resolved Seasonal allergies resolved Supervision of high risk , antepartum resolved 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 Anxiety resolved Desires (vaginal after ) trial resolved History of delivery resolved Hx of delivery, currently resolved resolved Seasonal allergies resolved Supervision of high risk , antepartum resolved 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 History of delivery resolved Hx of delivery, currently resolved resolved Supervision of high risk , antepartum resolved 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 Anxiety resolved Desires (vaginal after ) trial resolved Gestational thrombocytopenia resolved History of delivery resolved Hx of delivery, currently resolved resolved Seasonal allergies resolved Supervision of high risk , antepartum resolved 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 Anxiety resolved Desires (vaginal after ) trial resolved History of delivery resolved Hx of delivery, currently resolved resolved Seasonal allergies resolved Supervision of high risk , antepartum resolved 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 Anxiety resolved Desires (vaginal after ) trial resolved History of delivery resolved Hx of delivery, currently resolved resolved Seasonal allergies resolved Supervision of high risk , antepartum resolved 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 Anxiety resolved Desires (vaginal after ) trial resolved History of delivery resolved Hx of delivery, currently resolved resolved Seasonal allergies resolved Supervision of high risk , antepartum resolved 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 Anxiety resolved Desires (vaginal after ) trial resolved History of delivery resolved Hx of delivery, currently resolved resolved Seasonal allergies resolved Supervision of high risk , antepartum resolved 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 Desires (vaginal after ) trial resolved History of delivery resolved Hx of delivery, currently resolved resolved Supervision of high risk , antepartum resolved 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 Anxiety resolved Desires (vaginal after ) trial resolved History of delivery resolved Hx of delivery, currently resolved resolved Seasonal allergies resolved Supervision of high risk , antepartum resolved 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 Anxiety resolved Desires (vaginal after ) trial resolved Gestational thrombocytopenia resolved History of delivery resolved Hx of delivery, currently resolved resolved Seasonal allergies resolved Supervision of high risk , antepartum resolved 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 Anxiety resolved Desires (vaginal after ) trial resolved Gestational thrombocytopenia resolved History of delivery resolved Hx of delivery, currently resolved resolved Seasonal allergies resolved Supervision of high risk , antepartum resolved 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 Anxiety resolved Desires (vaginal after ) trial resolved Gestational thrombocytopenia resolved History of delivery resolved Hx of delivery, currently resolved resolved Seasonal allergies resolved Supervision of high risk , antepartum resolved 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 Status post section routine follow-up acute Anxiety resolved Desires (vaginal after ) trial resolved Gestational thrombocytopenia resolved History of delivery resolved Hx of delivery, currently resolved resolved Seasonal allergies resolved Supervision of high risk , antepartum resolved [facility] Work Phone: Evaluation note* Diagnosis Onset Date Resolution Status Anxiety resolved Elevated blood pressure affe cting , antepartum resolved resolved Supervision of high risk , antepartum resolved Anxiety resolved Desires (vaginal after ) trial resolved Elevated blood pressure affe cting , antepartum resolved History of delivery resolved Hx of delivery, currently resolved resolved Seasonal allergies resolved Supervision of high risk , antepartum resolved Anxiety resolved Desires (vaginal after ) trial resolved Elevated blood pressure affe cting , antepartum resolved History of delivery resolved Hx of delivery, currently resolved resolved Seasonal allergies resolved Supervision of high risk , antepartum resolved Anxiety resolved Desires (vaginal after ) trial resolved Gestational hypertension res olved History of delivery resolved Hx of delivery, currently resolved resolved Seasonal allergies resolved Supervision of high risk , antepartum resolved Gestational hypertension res olved History of delivery resolved Hx of delivery, currently resolved resolved Supervision of high risk , antepartum resolved Anxiety resolved Desires (vaginal after ) trial resolved Gestational hypertension res olved History of delivery resolved Hx of delivery, currently resolved resolved Seasonal allergies resolved Supervision of high risk , antepartum resolved Anxiety resolved Desires (vaginal after ) trial resolved Gestational hypertension res olved History of delivery resolved Hx of delivery, currently resolved resolved Seasonal allergies resolved Supervision of high risk , antepartum resolved Anxiety resolved Desires (vaginal after ) trial resolved History of delivery resolved Hx of delivery, currently resolved resolved 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 resolved Seasonal allergies resolved Supervision of high risk , antepartum resolved History of delivery resolved Hx of delivery, currently resolved resolved 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 resolved Supervision of high risk , antepartum resolved Anxiety resolved Desires (vaginal after ) trial resolved Gestational thrombocytopenia resolved History of delivery resolved Hx of delivery, currently resolved resolved 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 resolved Seasonal allergies resolved Supervision of high risk , antepartum resolved Anxiety resolved Desires (vaginal after ) trial resolved History of delivery resolved Hx of delivery, currently resolved resolved 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 resolved Seasonal allergies resolved Supervision of high risk , antepartum resolved Anxiety resolved Desires (vaginal after ) trial resolved History of delivery resolved Hx of delivery, currently resolved resolved 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 resolved Seasonal allergies resolved Supervision of high risk , antepartum resolved Anxiety resolved Desires (vaginal after ) trial resolved History of delivery resolved Hx of delivery, currently resolved resolved 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 resolved Seasonal allergies resolved Supervision of high risk , antepartum resolved Anxiety resolved Desires (vaginal after ) trial resolved History of delivery resolved Hx of delivery, currently resolved resolved 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 resolved Seasonal allergies resolved Supervision of high risk , antepartum resolved Desires (vaginal after ) trial resolved History of delivery resolved Hx of delivery, currently resolved resolved 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 resolved Supervision of high risk , antepartum resolved Anxiety resolved Desires (vaginal after ) trial resolved History of delivery resolved Hx of delivery, currently resolved resolved 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 resolved Seasonal allergies resolved Supervision of high risk , antepartum resolved Anxiety resolved Desires (vaginal after ) trial resolved Gestational thrombocytopenia resolved History of delivery resolved Hx of delivery, currently resolved resolved 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 resolved Seasonal allergies resolved Supervision of high risk , antepartum resolved Anxiety resolved Desires (vaginal after ) trial resolved Gestational thrombocytopenia resolved History of delivery resolved Hx of delivery, currently resolved resolved 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 resolved Seasonal allergies resolved Supervision of high risk , antepartum resolved Anxiety resolved Desires (vaginal after ) trial resolved Gestational thrombocytopenia resolved History of delivery resolved Hx of delivery, currently resolved resolved 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 resolved Seasonal allergies resolved Supervision of high risk , antepartum resolved Status post section routine follow-up acute Anxiety resolved Desires (vaginal after ) trial resolved Gestational thrombocytopenia resolved History of delivery resolved Hx of delivery, currently resolved resolved 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 resolved Seasonal allergies resolved Supervision of high risk , antepartum resolved Status post section routine follow-up [facility] Work Phone: Evaluation note* Diagnosis Generalized anxiety disorder with panic attacks- Primary Dizziness Dizziness and giddiness Seasonal allergies Allergic rhinitis, cause unspecified Low iron Unspecified iron deficiency anemia documented in this encounter [facility] Work Phone: Evaluation note* Diagnosis Nasal congestion- Primary Other diseases of nasal cavity and sinuses Acute non-recurrent maxillary sinusitis Otitis of right ear Anxiety Anxiety state, unspecified Low iron Unspecified iron deficiency anemia documented in this encounter [facility] Work Phone: Evaluation note* Diagnosis Generalized anxiety disorder with panic attacks- Primary Low iron Unspecified iron deficiency anemia Pure hypercholesterolemia Vitamin D deficiency documented in this encounter [facility] Work Phone: Evaluation note* Diagnosis Non-recurrent acute serous otitis media of right ear- Primary documented in this encounter [facility] Work Phone: Evaluation note* Diagnosis Onset Date Resolution Status Admit Date History of delivery , currently acute April 07 8:32am History of gestational hypertension acute April 07, 2025 8 :32am History of miscarriage, curr ently acute April 07, 2025 8 :32am History of pre-eclampsia in prior , currently acute Ma y 2024 8:32am Hx of delivery, curr ently acute April 07, 2025 8 :32am Obesity affecting acute April 07, 2025 8:32am acute April 07, 2025 8:32am Supervision of high-risk a cute April 07, 2025 8:32am [facility] Work Phone: History and physical note Author Enid Reyez [facility] February 10, 2023 2:51pm Note Date/Time February 10, 2023 2:0 7pm [facility] Medical Records Department [address] [place] [address] OB Triage Physician Note 02/10/23 1354 MR#: [id number] Acct: [id number] Name: GERALD MILLER Rep #:[id number] : 1995 27 From: Enid Reyez CNM PCP: Care Physician,No Primary Status :REG CLI Y Location: [place] [id number] HPI - General General Date of Service: 02/10/23 HPI Narrative GERALD MILLER, is a 27 F who presents with headache, nausea, and dizziness x 2 days. Took tylenol yesterday to help with the headache and she was able to fall asleep. Also reports achiness in RUQ and puffiness around her eyes. She was atwork and co worker took BP of 166/76. She Maternal Data Information SAJAN Calculator Estimated Delivery Date Method Current WG Current Estimate 06/08/23 Ultrasound #2 23w 1d Other Estimates 06/19/23 LMP (Uncertain) 21w 4d Final SAJAN: 06/08/23 Gestational age: 23weeks 1 day PFSH PFSH Medical History Anxiety History of miscarriage Home Medications vitamin#30 30 mg iron-10 mg iron-folic acid 1 mg-omg3 capsule 1 cap PO DAILY 12/24/20 [History Last Taken 12/24/20] Allergy/AdvReac Type Severity Reaction Status Date / Time No Known Allergies Allergy Verified 02/07/23 19:07 Family History no significant family his no significant family history Surgical History H/O dilation and curettage Hx of wisdom tooth extraction S/P Social History adopted: No household members: spouse and children housing: house number of children: 2 current occupational status: employed 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 current occupational exposures/hazards: No pets and animals: Yes (not managing litterbox) pets and animals: cat(s) and dog(s) history of recent travel: No sexually active: Yes Smoking Status: Never smoker alcohol intake: never substance use type: does not use well-balanced diet: daily or most days caffeine: Yes Type: carbonated beverages Number of servings: 1 eating out: 1-3 times/week during the past year weight has: remained stable what type of physical activity do you participate in: none khai/episcopal: Religion seatbelt use: always do you feel safe at home: Yes 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 Date Name GA/Weeks Outcome Route Bth Weight Infant Gen Labor Lgth Anesthesia Del Locatn Provider FOB 11/23/18 Elijah 38 live - full term 7lbs 4oz Male Juan F TJ 12/24/20 Rojas 35 live - 6lbs 4oz Male rtace jackson [facility] Dr. Dailey Delivery Date: 11/23/18 Last Updated by: Andie Breaux CAT II FHT Delivery Date: 12/24/20 Last Updated by: Delmy Welsh PPROM Visit Details Expected Delivery Route/Plan patient counseled regarding risks/benefits of trial of labor versus repeat . ACOG/uptodate education given to patient. She wishes to be educated more and think about a after 2 sections. 50/7% % likelihood of success per calculator TOLAC consent form signed: [] Plans Covid status: [] Flu vaccine: [] Tdap vaccine: [] Rhogam: [] LARC form signed: [] Problem list reviewed and updated with the most current plan of care details and appropriate orders placed. Relevant counseling for the gestational age provided. Continue routine care and follow up unless otherwise noted in visit notes/problem list details OB Flowsheet Initial Weight: Not Recorded Date -?-?-?-?-?-?-?-?-?-?-?-?- EGA Weight BP Urine Prot -?-?-?-?-?-?-?-?-?-?-?-?- Glucose FHR FuHt Pres Dilation -?-?-?-?-?-?-?-?-?-?-?-?- Effaced St Visit Note 11/08/22 -?-?-?-?-?-?-?-?-?-?-?-?- 9w 5d 166 lb 8 oz 147/88 -?-?-?-?-?-?-?-?-?-?-?-?- 189 -?-?-?-?-?-?-?-?-?-?-?-?- JV- 2.5 cm subch orionic hem present near the cervix. Single live IUP measuring 9weeks 5 days. New sajan 06/08/22 11/24/22 -?-?-?-?-?-?-?-?-?-?-?-?- 12w 0d 171 lb 6 oz 138/81 Nega tive -?-?-?-?-?-?-?-?-?-?-?-?- Negative 155 -?-?-?-?-?-?-?-?-?-?-?-?- JV- no bleeding, patient has decided to do genetic testing. repeat ultrasound performed today. 12/23/22 -?-?-?-?-?-?-?-?-?-?-?-?- 16w 1d 172 lb 8 oz 150/88 Nega tive -?-?-?-?-?-?-?-?-?-?-?-?- Negative 156 -?-?-?-?-?-?-?-?-?-?-?-?- JV- no further b leeding. NOEMY resolved on today's ultrasound. anatomy scan scheduled. pt still has intermittent high blood pressure and c/o intermittent chest pressure. consulting cardiology and she is informed to go to ER next time has the pain. 01/25/23 -?-?-?-?-?-?-?-?-?-?-?-?- 20w 6d 182 lb 2 oz 128/80 Nega tive -?-?-?-?-?-?-?-?-?-?-?-?- Negative 149 -?-?-?-?-?-?-?-?-?-?-?-?- MH-No VB, LOF. A nterior placenta so just light kicks. No concerns ROS Constitutional Constitutional: Reports fatigue and headache(s); Denies fever(s) Eyes Eyes: Reports blurry vision bilateral, floaters and puffy eyes ENT HEENT: Reports headache(s) Cardiovascular Cardiovascular: Reports diaphoresis, dizziness, fatigue, lightheadedness and nausea; Denies chest pain or dyspnea Respiratory/Chest Respiratory/Chest: Denies change in mental status Gastrointestinal Gastrointestinal: Reports systems reviewed and no addt'l complaints, except as documented Genitourinary Genitourinary: Reports movement Details: present; Denies contractions or difficulty urinating Musculoskeletal Musculoskeletal: Reports systems reviewed and no addt'l complaints, except as documented Integumentary Integumentary: Reports systems reviewed and no addt'l complaints, except as documented Neurologic Neurologic: Reports dizziness, headache(s) and other visual disturbances Psychiatric Psychiatric: Reports anxiety Physical Exam Const alert, oriented x3 and no apparent distress Eyes no papilledema Resp normal respiratory effort, no retractions and no use of accessory muscles GI soft to palpation and non-tender Palpation: soft; Negative for tender Narrative: uterus soft on palpation, no contractions, + movement Manual OB Exam: estimated gestational size appropriate Extremity normal to inspection, full ROM, no calf tenderness and no pedal edema Peripheral Pulses: Yes pulses 2+ throughout Skin no rashes or lesions noted Neuro moves all extremities and deep tendon reflexes 2+ bilaterally Motor Exam: clonus present 1+ bilateral Psych mental status grossly normal Appearance: grossly normal Mood & Affect: anxious Assessment & Plan (1) Supervision of high risk , antepartum: COMMENT: [id number], SAJAN 06/19/23 Boy Rojas Narvaez TJ (2) : QUALIFIERS: Weeks of gestation: 16 weeks Qualified Code(s): Z3A.16 - 16 weeks gestation of COMMENT: NIPT low risk, discussed carrier testing. Anatomy US normal. (3) Anxiety: (4) Elevated blood pressure affecting , antepartum: PLAN: Chronic hypertension Pre Eclampsia nl Start Labetalol 200mg BID Home BP cuff Follow up with MFM Discussed with JV. agrees with plan Charges/Coding Visit Charges Office Visits / Consults: 85476 OV L3 Est Multi Select Codes Urinary/Genital Urinary/Genital CPT Codes: 17106-68 non-stress test Interp 02/10/23 1451 <Electronically signed by Enid woodward CNM> Date _ Enid Reyez CNM Cosigner Signature (if applicable): Date CC: FILI Reyez; No Primary Care Physician ~ Signed [facility] Work Phone: History and physical note Author Dr. Lyons [facility] May 05, 2023 5:28pm Note Date/Time May 05, 2023 5:28 pm [facility] Medical Records Department [address] [place] [id number] OB Triage Physician Note 05/05/23 1725 MR#: [id number] Acct: [id number] Name: GERALD MILLER Rep #:[id number] : 1995 27 From: Flores Vasquez DO PCP: Care Physician,No Primary Status :DEP CLI Y Location: [facility] HPI - General HPI Narrative GERALD MILLER, is a 27 y/o who presents to L&D after was discharged earliertoday for a non-reactive nst in office and mild elevations in bp (140's/80's) while here her plts returned at 139 and was noted to be 165 on prior lab work back in late March. She was called back for further evaluation. Maternal Data Information SAJAN Calculator Estimated Delivery Date Method Current WG Current Estimate 06/08/23 Ultrasound #2 35w 1d Other Estimates 06/19/23 LMP (Uncertain) 33w 4d PFSH PFS Medical History Anxiety History of miscarriage Home Medications vitamin#30 30 mg iron-10 mg iron-folic acid 1 mg-omg3 capsule 1 cap PO DAILY 12/24/20 [History Last Taken 05/02/23 07:00] labetalol 200 mg tablet 50 mg PO BID bp 03/15/23 [History Last Taken 05/02/23 07:00] progesterone micronized 200 mg capsule (Prometrium) 200 mg vaginal ONCE 04/04/23 [History Last Taken 04/29/23 08:00] aspirin 81 mg PO/SL DAILY 04/30/23 [History Last Taken 05/01/23 19:00] Allergy/AdvReac Type Severity Reaction Status Date / Time No Known Allergies Allergy Verified 05/05/23 11:30 Surgical History H/O dilation and curettage Hx of wisdom tooth extraction S/P Social History adopted: No household members: spouse and children housing: house number of children: 2 current occupational status: employed 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 current occupational exposures/hazards: No pets and animals: Yes (not managing litterbox) pets and animals: cat(s) and dog(s) history of recent travel: No sexually active: Yes Smoking Status: Never smoker alcohol intake: never substance use type: does not use well-balanced diet: daily or most days caffeine: Yes Type: carbonated beverages Number of servings: 1 eating out: 1-3 times/week during the past year weight has: remained stable what type of physical activity do you participate in: none khai/episcopal: Religion seatbelt use: always do you feel safe at home: Yes 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 Date Name GA/Weeks Outcome Route Bth Weight Infant Gen Labor Lgth Anesthesia Del Locatn Provider FOB 11/23/18 Elijah 38 live - full term 7lbs 4oz Male Juan F TJ 12/24/20 Rojas 35 live - 6lbs 4oz Male s manuel [facility] Dr. Dailey Delivery Date: 11/23/18 Last Updated by: Andie Breaux CAT II FHT Delivery Date: 12/24/20 Last Updated by: Delmy Welsh PPROM Visit Details Expected Delivery Route/Plan patient counseled regarding risks/benefits of trial of labor versus repeat . ACOG/uptodate education given to patient. She wishes to be educated more and think about a after 2 sections. 50/7% % likelihood of success per calculator TOLAC consent form signed: []1 Plans Covid status: discussed Flu vaccine: discussed Tdap vaccine: given Rhogam:na LARC form signed: yes movement and labor precautions reviewed. Problem list reviewed and updated with the most current plan of care details and appropriate orders placed. Relevant counseling for the gestational age provided. Continue routine care and follow up unless otherwise noted in visit notes/problem list details OB Flowsheet Initial Weight: Not Recorded Date -?-?-?-?-?-?-?-?-?-?-?-?- EGA Weight BP Urine Prot -?-?-?-?-?-?-?-?-?-?-?-?- Glucose FHR FuHt Pres Dilation -?-?-?-?-?-?-?-?-?-?-?-?- Effaced St Visit Note 11/08/22 -?-?-?-?-?-?-?-?-?-?-?-?- 9w 5d 166 lb 8 oz 147/88 -?-?-?-?-?-?-?-?-?-?-?-?- 189 -?-?-?-?-?-?-?-?-?-?-?-?- JV- 2.5 cm subch orionic hem present near the cervix. Single live IUP measuring 9weeks 5 days. New sajan 06/08/22 11/24/22 -?-?-?-?-?-?-?-?-?-?-?-?- 12w 0d 171 lb 6 oz 138/81 Nega tive -?-?-?-?-?-?-?-?-?-?-?-?- Negative 155 -?-?-?-?-?-?-?-?-?-?-?-?- JV- no bleeding, patient has decided to do genetic testing. repeat ultrasound performed today. 12/23/22 -?-?-?-?-?-?-?-?-?-?-?-?- 16w 1d 172 lb 8 oz 150/88 Nega tive -?-?-?-?-?-?-?-?-?-?-?-?- Negative 156 -?-?-?-?-?-?-?-?-?-?-?-?- JV- no further ludy leach. NOEMY resolved on today's ultrasound. anatomy scan scheduled. pt still has intermittent high blood pressure and c/o intermittent chest pressure. consulting cardiology and she is informed to go to ER next time has the pain. 01/25/23 -?-?-?-?-?-?-?-?-?-?-?-?- 20w 6d 182 lb 2 oz 128/80 Nega tive -?-?-?-?-?-?-?-?-?-?-?-?- Negative 149 -?-?-?-?-?-?-?-?-?-?-?-?- MH-No VB, LOF. A nterior placenta so just light kicks. No concerns 02/17/23 -?-?-?-?-?-?-?-?-?-?-?-?- 24w 1d 188 lb 8 oz 136/85 Nega tive -?-?-?-?-?-?-?-?-?-?-?-?- Negative 155 -?-?-?-?-?-?-?-?-?-?-?-?- KW-no lof/vb/ctx . +fm Planning Tdap, and 28 week labs. to track BPs at home and start vaginal progesterone. SHe would like to try a with this . Sign TOLAC form next visit. 03/15/23 -?-?-?-?-?-?-?-?-?-?-?-?- 27w 6d 195 lb 8 oz 134/80 Nega tive -?-?-?-?-?-?-?-?-?-?-?-?- Negative 150 28 -?-?-?-?-?-?-?-?-?-?-?-?- MH-No VB, lof. G ood FM. 28 wk labs, larc. 03/31/23 -?-?-?-?-?-?-?-?-?-?-?-?- 30w 1d 202 lb 147/73 135/81 Negative -?-?-?-?-?-?-?-?-?-?-?-?- Negative 140 30 -?-?-?-?-?-?-?-?-?-?-?-?- SM- no vb lof go od fm nor egualr ctx. discussed plan of delivery by 37 recommend RLTCS unless very favorable for IOL. 04/11/23 -?-?-?-?-?-?-?-?-?-?-?-?- 31w 5d 201 lb 8 oz 137/81 Nega tive -?-?-?-?-?-?-?-?-?-?-?-?- Negative 140 -?-?-?-?-?-?-?-?-?-?-?-?- SM- no vb lof go o dfm no regular ctx labs ordered 04/14/23 -?-?-?-?-?-?-?-?-?-?-?-?- 32w 1d 206 lb 2 oz 133/76 Nega tive -?-?-?-?-?-?-?-?-?-?-?-?- Negative 140 -?-?-?-?-?-?-?-?-?-?-?-?- JV- reactive NST . growth 93rd %. needs pih labs weekly. bp stable today 04/18/23 -?-?-?-?-?-?-?-?-?-?-?-?- 32w 5d 206 lb 130/60 Negative -?-?-?-?-?-?-?-?-?-?-?-?- Negative 140 -?-?-?-?-?-?-?-?-?-?-?-?- KW-+FM, no lof/v b/ctx. PCR increased last visit. repeat labs and Celestone. reactive NST KW-+FM, no lof/vb/ctx. tdap today. PCR increased last visit. repeat labs and Celestone. reactive NST discusses POC with SM. 04/24/23 -?-?-?-?-?-?-?-?-?-?-?-?- 33w 4d 205 lb 130/89 Negative -?-?-?-?-?-?-?-?-?-?-?--?- Negative 150 -?-?-?-?-?-?-?-?-?-?-?-?- SM- no vb lof go od fm no reuglar ctx just cramping and loose stoole no PARRY BV pree labs today schedule US in 2 weeks 04/27/23 -?-?-?-?-?-?-?-?-?-?-?-?- 34w 0d 206 lb 4 oz 128/70 Nega tive -?-?-?-?-?-?-?-?-?-?-?-?- Negative 140 -?-?-?-?-?-?-?-?-?-?-?-?- SM- no PARRY BV vb lof good fm no regular ctx 05/02/23 -?-?-?-?-?-?-?-?-?-?-?-?- 34w 5d 210 lb 4 oz 137/84 Nega tive -?-?-?-?-?-?-?-?-?-?-?-?- Negative 160 -?-?-?-?-?-?-?-?-?-?-?-?- MH-NST only reac tive 05/05/23 -?-?-?-?-?-?-?-?-?-?-?-?- 35w 1d 210 lb 137/78 137/78 Negative -?-?-?-?-?-?-?-?-?-?-?-?- Negative 175 -?-?-?-?-?-?-?-?-?-?-?-?- KW-+FM and cramp ing, no vb/lof. nonreactive NST-to WP-JV aware ROS Constitutional Constitutional: Reports systems reviewed and no addt'l complaints, except as documented Gastrointestinal Gastrointestinal: Denies bloating, constipation, cramping, diarrhea, nausea or vomiting Genitourinary Genitourinary: Reports other Details: Denies vaginal odor, vaginal bleeding, or vaginal discharge ; Denies difficulty urinating or flank pain Physical Exam HEENT normocephalic Resp normal respiratory effort and normal air movement no CVA tenderness Extremity normal to inspection General Extremity: edema bilateral (trace ) NST FHR Rate Baby A Baseline: 140 Variability:: Moderate Accelerations:: 15 x 15 Decelerations:: None NST Reactive:: Yes FHR Category:: Category I Assessment & Plan (1) Gestational thrombocytopenia: COMMENT: discussed with MFM on 05/05. no need to deliver prior to 37 weeks unless plts less than 100k and other signs leading to diagnosis of hellp. rpt labs week of 05/08 PLAN: proteinuria resolved and bp's are stable in the 130's/80's-80's. reactive nst no symptoms of pre-e or hellp plan to dc to home and repeat labs next week. (2) 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: COMMENT: Growth US q 4 weeks at 28 weeks. NSTs-2x weekly starting at 32 weeks. Continue Labetalol. home BPs 2 x daily per MFM. weekly labs (3) Desires (vaginal after ) trial: COMMENT: 15%- discussed with pt. plan RLTCS at 37 due to GHTN unless labor or very favorable cervix. RLTCS scheduled for 05/19 @ 7:10 with SM (4) Hx of delivery, currently : COMMENT: vaginal progesterone 200mg until 37 weeks (5) History of delivery: COMMENT: history of 2 sections. first was for unknown reason per patient and 2nd was repeat section for srom at 35 weeks. wants to discuss . chance of success 50% (6) Seasonal allergies: COMMENT: all year (7) Supervision of high risk , antepartum: COMMENT: [id number], SAJAN 06/19/23 Boy Ramakrishna! PC Rojas Nava TJ (8) : QUALIFIERS: Weeks of gestation: 35 weeks Qualified Code(s): Z3A.35 - 35 weeks gestation of COMMENT: NIPT low risk, discussed carrier testing. Anatomy US normal. (9) Anxiety: COMMENT: stable Charges/Coding Multi Select Codes Visit Charges Office Visit/Consults: 09519 OV L3 Est Urinary/Genital Urinary/Genital CPT Codes: 63668-12 non-stress test Interp 05/05/23 1728 <Electronically signed by Flores Hickey DO> Date _ Flores Vasquez DO Cosigner Signature (if applicable): Date CC: Dr. 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 female who presents for Nasal Congestion (Pt c/o body aches and r ear ache x 2 days ). VIRTUAL APPOINTMENT BEING PERFORMED DUE TO COVID-19 (CORONAVIRUS) HPI: Presents today for C/O RIGHT EAR PAIN AND BODY ACHES X 2 DAYS modifying factors consists of associated symptoms consist of HILLS/SWEATS ON.OFF. UNKNOWN FEVER prior treatment consists of medication LORATADINE AND FLONASE ANXIETY- STABLE Visit Vitals OB Status Recent Smoking Status Never Review of Systems Constitutional: Negative for chills, fatigue, fever and unexpected weight change. HENT: Positive for congestion and ear pain. Negative for sore throat and trouble swallowing. Eyes: Negative for photophobia, pain, redness and visual disturbance. Respiratory: Negative for apnea, cough, choking, chest tightness, shortness of breath and wheezing. Cardiovascular: Negative for chest pain, palpitations and leg swelling. Gastrointestinal: Negative for abdominal distention, abdominal pain, blood in stool, constipation, diarrhea, nausea and vomiting. Genitourinary: Negative for difficulty urinating, dysuria, flank pain, frequency, hematuria and urgency. Musculoskeletal: Negative for arthralgias, back pain, gait problem, joint swelling, myalgias and neck pain. Skin: Negative for rash and wound. Neurological: Negative for dizziness, seizures, syncope, facial asymmetry, speech difficulty, weakness, numbness and headaches. Psychiatric/Behavioral: Negative for confusion, sleep disturbance and suicidal ideas. The patient is not nervous/anxious. Objective Physical Exam HENT: Head: Comments: RIGHT MAXILLARY SINUS PRESSURE Neurological: Mental Status: She is alert. Assessment/Plan Problem List Items Addressed This Visit Anxiety Relevant Orders Comprehensive Metabolic Panel CBC and Auto Differential Vitamin B12 Iron and TIBC Ferritin Folate TSH with reflex to Free T4 if abnormal Low iron Relevant Orders Comprehensive Metabolic Panel CBC and Auto Differential Vitamin B12 Iron and TIBC Ferritin Folate TSH with reflex to Free T4 if abnormal Nasal congestion - Primary Relevant Medications COVID-19 antigen test (COVID-19 At-Home Test) kit Otitis of right ear Relevant Medications fzzwrbeu-neqosbwej-VG (Cortisporin) otic solution Acute non-recurrent maxillary sinusitis Relevant Medications amoxicillin (Amoxil) 500 mg capsule INSTRUCTED TO KEEP HEAD TILTED X 5 MINUTES AFTER APPLYING EAR DROPS CALL WITH COVID-19 TESTING RESULTS. REFUSING SOONER FU APPT AT THIS TIME. . INSTRUCTED TO SELF QUARANTINE AND TO PRACTICE GOOD HAND WASHING TECHNIQUES. PT WAS INSTRUCTED TO INCREASE FLUID INTAKE AND TAKE TYLENOL 650 MG PO Q6H/PRN FOR PAIN OR FEVER. RETURN SOONER OR GO TO THE ER IF SYMPTOMS PERSIST OR WORSEN WE DISCUSSED MOST COMMON SIDE EFFECTS OF PRESCRIBED MEDICATIONS. INDICATIONS, RISK, COMPLICATIONS, AND ALTERNATIVES OF MEDICATION/THERAPEUTICS WERE EXPLAINED AND DISCUSSED. PLEASE MONITOR CLOSELY FORANY UNTOWARD SIDE EFFECTS OR COMPLICATIONS OF MEDICATIONS. PATIENT IS STRONGLY ADVISED TO BE COMPLIANT WITH RECOMMENDATIONS. QUESTIONS AND CONCERNS WERE ADDRESSED. INSTRUCTED TO CALL, RETURN SOONER, OR GO TO THE ER, IF SYMPTOMS PERSIST OR WORSEN. THEY VOICED UNDERSTANDING AND DENIES FURTHER QUESTIONS AT THIS TIME. TIME CODE 1. PREPARATION FOR PATIENT'S VISIT (REVIEWING CHART, CURRENT MEDICAL RECORDS, OUTSIDE HEALTH PROVIDER RECORDS, PREVIOUS HISTORY, EXAM, TEST, PROCEDURE, AND MEDICATIONS) 2. FACE TO FACE ENCOUNTER OBTAINING HISTORY FROM THE PATIENT/FAMILY/CAREGIVERS; PERFORMING EVALUATION AND EXAMINATION; ORDERING TESTS OR PROCEDURES; REFERRING AND COMMUNICATING WITH OTHER HEALTHCARE PROVIDERS; COUNSELING AND EDUCATION OF THE PATIENT/FAMILY/CAREGIVERS; INDEPENDENTLY INTERPRETING RESULTS (TESTS, LABS, PROCEDURES, IMAGING) AND COMMUNICATING AND EXPLAINING RESULTS TO THE PATIENT/FAMILY/CAREGIVERS 3. COORDINATION OF CARE; PREPARING AND PRINTING DISCHARGE INSTRUCTIONS AND ANY EDUCATIONAL MATERIALFOR THE PATIENT/FAMILY/CAREGIVERS. DOCUMENTING CLINICAL INFORMATION IN THE ELECTRONIC MEDICAL RECORD 4. REVIEWING OARRS NEEDED MDM 1) COMPLEXITY: MORE THAN 1 STABLE CHRONIC CONDITION ADDRESSED OR 1 ACUTE ILLNESS ADDRESSED 2)DATA: TESTS INTERPRETED AND OR ORDERED, TOOK INDEPENDENT HISTORY OR RECORDS REVIEWED 3)RISK: MODERATE RISK DUE TO NATURE OF MEDICAL CONDITIONS/COMORBIDITY OR MEDICATIONS ORDERED OR SURGICAL OR PROCEDURE REFERRAL 6 MONTHS WITH LABS [facility] Work Phone: History of Present illness Narrative* MONICA Carbajal - 05/16/2024 8:00 AM EDT Subjective Patient ID: Gerald Miller is a 28 y.o. female who presents for Follow-up (6 months. Pt did not complete labs at this time, no concerns). VIRTUAL APPOINTMENT BEING PERFORMED HPI: Presents today for [facility] LABS. NO LABS DONE. NO NEW COMPLAINTS ANXIETY- STABLE ALLERGIES- STABLE WITH OTC MANAN Visit Vitals OB Status Recent Smoking Status Never Review of Systems Constitutional: Negative for chills, fatigue, fever and unexpected weight change. HENT: Negative for congestion, ear pain, sore throat and trouble swallowing. Eyes: Negative for photophobia, pain, redness and visual disturbance. Respiratory: Negative for apnea, cough, choking, chest tightness, shortness of breath and wheezing. Cardiovascular: Negative for chest pain, palpitations and leg swelling. Gastrointestinal: Negative for abdominal distention, abdominal pain, blood in stool, constipation, diarrhea, nausea and vomiting. Genitourinary: Negative for difficulty urinating, dysuria, flank pain, frequency, hematuria and urgency. Musculoskeletal: Negative for arthralgias, back pain, gait problem, joint swelling, myalgias and neck pain. Skin: Negative for rash and wound. Neurological: Negative for dizziness, seizures, syncope, facial asymmetry, speech difficulty, weakness, numbness and headaches. Psychiatric/Behavioral: Negative for confusion, sleep disturbance and suicidal ideas. The patient is not nervous/anxious. Objective Physical Exam Neurological: Mental Status: She is alert. Psychiatric: Mood and Affect: Mood normal. Behavior: Behavior normal. Thought Content: Thought content normal. Judgment: Judgment normal. Assessment/Plan Problem List Items Addressed This Visit Generalized anxiety disorder with panic attacks - Primary Low iron DO LABS THIS WEEK AND I WILL CALL WITH RESULTS. PLEASE MONITOR CLOSELY FOR ANY UNTOWARD SIDE EFFECTS OR COMPLICATIONS OF MEDICATIONS. PATIENT IS STRONGLY ADVISED TO BE COMPLIANT WITH RECOMMENDATIONS. QUESTIONS AND CONCERNS WERE ADDRESSED. INSTRUCTED TO CALL, RETURN SOONER, OR GO TO THE ER, IF SYMPTOMS PERSIST OR WORSEN. THEY VOICED UNDERSTANDINGAND DENIES FURTHER QUESTIONS AT THIS TIME. TIME CODE 1. PREPARATION FOR PATIENT'S VISIT (REVIEWING CHART, CURRENT MEDICAL RECORDS, OUTSIDE HEALTH PROVIDER RECORDS, PREVIOUS HISTORY, EXAM, TEST, PROCEDURE, AND MEDICATIONS) 2. FACE TO FACE ENCOUNTER OBTAINING HISTORY FROM THE PATIENT/FAMILY/CAREGIVERS; PERFORMING EVALUATION AND EXAMINATION; ORDERING TESTS OR PROCEDURES; REFERRING AND COMMUNICATING WITH OTHER HEALTHCARE PROVIDERS; COUNSELING AND EDUCATION OF THE PATIENT/FAMILY/CAREGIVERS; INDEPENDENTLY INTERPRETING RESULTS (TESTS, LABS, PROCEDURES, IMAGING) AND COMMUNICATING AND EXPLAINING RESULTS TO THE PATIENT/FAMILY/CAREGIVERS 3. COORDINATION OF CARE; PREPARING AND PRINTING DISCHARGE INSTRUCTIONS AND ANY EDUCATIONAL MATERIALFOR THE PATIENT/FAMILY/CAREGIVERS. DOCUMENTING CLINICAL INFORMATION IN THE ELECTRONIC MEDICAL RECORD 4. REVIEWING OARRS NEEDED MDM 1) COMPLEXITY: 1 ACUTE ILLNESS, 1 STABLE CHRONIC CONDITION, OR 2 MINOR PROBLEMS ADDRESSED 2)DATA: TESTS INTERPRETED AND OR ORDERED, TOOK INDEPENDENT HISTORY OR RECORDS REVIEWED 3)RISK: LOW RISK DUE TO NATURE OF MEDICAL CONDITIONS/COMORBIDITY OR MEDICATIONS ORDERED OR SURGICALOR PROCEDURE REFERRAL 6 MONTHS WITH LABS [facility] Work Phone: Progress note Author Enid Reyez [facility] February 07, 2023 7:55pm Note Date/Time February 07, 2023 7:5 5pm [facility] Medical Records Department [address] [place] [address] OB Triage Progress Note 02/07/231938 MR#: [id number] Acct: [id number] Name: GERALD MILLER Rep #:[id number] : 1995 27 From: Enid Reyez CNM PCP: Care Physician,No Primary Status :REG CLI Y DOS: Location: [place] [address] Progress Notes Date of Service: 02/07/23 Progress Note: Patient presents for triage evaluation secondary to possible SROM FHT: 150 Moderate variability reactive no decelerations category I tracing [place]: No Contractions Assessment and plan: Reactive NST, reassuring maternal and status patientdischarged to home to follow-up at next scheduled appointment. See problem listdetails for additional plan information. Charges/Coding Multi Select Codes Urinary/Genital Urinary/Genital CPT Codes: 87993-58 non-stress test Interp 02/07/231954 <Electronically signed by Enid woodward CNM> Date _ Enid Reyez CNM Cosigner Signature (if applicable): Date CC: FILI Reyez; No Primary Care Physician ~ Signed [facility] Work Phone: Progrjss note Author Enid Reyez [facility] Note Date/Time April 07, 2025 9:41a m [facility] H ealt [facility] [address], [address] [place] [address] OFFICE VISIT Date of Service: 04/07/25 MR#: [id number] Acct: [id number] Name: GERALD MILLER Rep #: [id number] : 1995 Provider: FILI Reyez Age/Sex: 29/F Location: [facility] Status: Signed Intake Vital Signs 08/16/24 15:58 04/07/25 08:46 Height 5 ft 3 in 5 ft 3 in Weight: 177 lb 2 oz BMI 31.4 BP 139/88 H Intake Visit Reasons: NOB LMP 02/04 Chief Complaint: New OB Waist Fitter Required: No Is patient in pain?: No Allergies No Known Allergies Allergy (Verified 04/07/25 08:44) Medications ?Medication ?Instructions ?Recorded ?Confirmed ?Type docosahexaenoic acid 200 mg mg PO 03/28/25 04/07/25 Hi story capsule ( DHA) Last Menstrual Period: 02/04/25 Have you fallen in the past year?: No PFSH PFSH Medical History Seasonal allergies History of premature rupture of membranes (PPROM) History of pre-term labor History of miscarriage Anxiety Surgical History Hx of wisdom tooth extraction S/P H/O dilation and curettage Social History adopted: No household members: spouse and children housing: house number of children: 3 current occupational status: employed current occupation: [employer] current occupational exposures/hazards: No pets and animals: Yes pets and animals: dog(s) history of recent travel: Yes ( - February 2025) out of state: Yes out of country: No sexually active: Yes Smoking Status: Never smoker second hand exposure: No alcohol intake: never substance use type: does not use well-balanced diet: daily or most days caffeine: Yes Type: carbonated beverages Number of servings: 1 eating out: 1-3 times/week during the past year weight has: remained stable what type of physical activity do you participate in: none khai/episcopal: Religion seatbelt use: always do you feel safe at home: Yes 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 Date Name GA/Weeks Outcome Route Bth Weight Gen Labor Lgth Anesthesia Del Locatn Provider FOB 07/21/18 4 spontaneous TJ 09/20/18 11 spontaneous TJ 11/23/18 Elijah 38 live - full term 7lbs 4oz Male spinal [place] TJ 12/24/20 Rojas 35 live - 6lbs 4oz Male s manuel [facility] Dr. Dailey TJ 05/19/23 Ramakrishna 37 live - full term 7lbs 9oz Male spinal [facility] Marcanthony TJ Delivery Date: 07/21/18 Last Updated by: Gina Staley RN Passed naturally Delivery Date: 09/20/18 Last Updated by: Gina Staley RN D&C Delivery Date: 11/23/18 Last Updated by: Gina Staley RN [facility]: CAT II FHT Delivery Date: 12/24/20 Last Updated by: Delmy Welsh PPROM Delivery Date: 05/19/23 Last Updated by: Alicia Renee RLTCS 37 wks preeclampsia HPI NOB LMP 02/04 Details: GERALD MILLER is a 29 year old who presents for New OB visit. OB Visit SAJAN Calculator Estimated Delivery Date Method Current WG Current Estimate 11/11/25 LMP (Certain) 8w 6d Other Estimates 11/10/25 Ultrasound #1 9w 0d Estimated Due Date: 11/11/23 Expected Delivery Route/Plan repeat C/S Specific Issue/Plans Covid status: [] Flu vaccine: [] Tdap vaccine: [] Rhogam: [] LARC form signed: [] Problem list reviewed and updated with the most current plan of care details and appropriate orders placed. Relevant counseling for the gestational age provided. Continue routine care and follow up unless otherwise noted in visit notes/problem list details Initial Weight: 177 lb Date -?-?-?-?-?-?-?-?-?-?-?-?- EGA Weight BP Urine Prot -?-?-?-?-?-?-?-?-?-?-?-?- Glucose FHR FuHt Pres Dilation -?-?-?-?-?-?-?-?-?-?-?-?- Effaced St Visit Note 04/07/25 -?-?-?-?-?-?-?-?-?-?-?-?- 8w 6d 177 lb 2 oz (+2 oz) 139/88 -?-?-?-?-?--?-?-?-?-?-?-?- 173 -?-?-?-?-?-?-?-?-?-?-?-?- KW- CRL cons wit h dates. Declines NIPT. KW- CRL cons with dates. Dec lines NIPT. start asa for GHTN/pre e Menstrual History Last Menstrual Period: 02/04/25 Reported LMP: definite Normal amount/duration: Yes Frequency in days: 28 On hormonal BC at conception: No hCG+: 03/04/25 Antepartum Record Genetic Screening: Congenital Heart Defect: Other, Neural Tube Defect: Other, Hemoglobinopathy Or Carrier: Other, Cystic Fibrosis: Other, Chromosome Abnormality: Other, Evaristo-Sachs: Other, Hemophilia: Other, Intellectual Disability/Autism: Other, Recurrent Loss/Stillbirth: Patient (Pt w/2 miscarriages), Other Structural Defect: Other, Other Genetic Disease: Other and Maternal Metabolic Disorder: Other Infection History: Live with someone with TB or Exposed to TB: No, Patient or Partner has history of Genital Herpes: No, Rash or Viral illness since last mentrual period: No, Prior GBS-Infected child: No, History of STD: No, HIV Infection: No, History of Hepatitis: No, Recent travel outside of [place]: No, Concern for hepatitis exposure: No, Varicella immune: Yes (Had vaccine) and Covid Vaccinated: No Medical History Medical History: Positive: Hypertension (Gest HTN), Psychiatric (Anxiety ), Seasonal allergies, 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), Operations/hospitalizations (See surg hx) and Uterine anomaly/devin (2 fibroids on uterus - discovered 2023) and Negative: Diabetes, Heart disease, Auto-immune disorder, Kidney disease/UTI, Neurologic/epilepsy, Depression/ depression, Hepatitis/liver disease, Varicosities/phlebitis, Thyroid dysfunction, Trauma/domestic violence, History of blood transfusions (O+), D (Rh) Sensitized, Pulmonary (e.g.,TB,Asthma), Drug/latex allergies/reactions, Breast, Anesthetic complications, History of abnormal pap, Infertility, Anti-retroviral treatment, Relevant family history and Other ACOG First Trimester First Trimester: Desire for , Alcohol, Tobacco Cessation, Illicit/Recreational Drug/Substance Use, Intimate Partner Violence, Barriers to care, Unstable Housing, Communication Barriers, Environmental/Work Hazards, Anticipated Course of Care, Toxoplasmosis Precations, Use of Any medications, Sexual activity, Exercise, Dental Care, Sauna/Hot tub use, Seat Belt use, Childbirth classes/Hospital facilities, Travel, Indications for Ultrasound and Screening for Aneuploidy Second Trimester Second Trimester: Signs and Symptoms of Labor, Selecting a care provider, Reproductive Life Planning & Contreception, Care Planning, Depression/Anxiety and Intimate Partner Violence; Discussed Tobacco Cessation Third Trimester Third Trimester: Pain Management Plans, Labor support person(s), Immediate Larc, Circumcision preference, Movement Monitoring, Signs and Symptoms of Preeclampsia, Infant Feeding, Education and Family Medical Leave or Disability Forms ROS Const Reports system reviewed and no additional complaints, except as documented, Denies fatigue, Denies headache(s) and Denies lethargy ENT Denies headache(s) Card Reports system reviewed and no additional complaints, except as documented Resp Reports system reviewed and no additional complaints, except as documented GI Reports system reviewed and no additional complaints, except as documented, Denies abdominal pain, Denies constipation, Denies cramping, Denies diarrhea and Denies dyspepsia Reports system reviewed and no additional complaints, except as documented, Denies abnormal vaginal bleeding, Denies difficulty voiding, Denies dyspareunia and Denies dysuria Musc Reports system reviewed and no additional complaints, except as documented Skin/Breast Reports system reviewed and no additional complaints, except as documented Neuro Yes system reviewed and no additional complaints, except as documented and No headache(s) Psych Reports system reviewed and no additional complaints, except as documented, Denies anhedonia and Denies anxiety Endo Reports system reviewed and no additional complaints, except as documented and Denies fatigue Exam Const General: cooperative, healthy appearing and comfortable Neck Neck: normal visual inspection and full ROM Resp Effort & Inspection: normal respiratory effort and able to speak in complete sentences GI Inspection: normal to inspection Palpation: soft External Female Exam: normal external appearance and normal appearance of the urethra Urethra: normal appearance of the urethra Skin General: no rashes or lesions noted Neuro General: patient alert, patient awake and patient oriented x3 Extrem General: normal to inspection and full ROM Psych Appearance: grossly normal and well kempt Mental Status: mental status grossly normal Mood: congruent mood Affect: normal affect Speech and Movement: speech and movement normal Thought Process: normal Thought Content: normal Coding Level of Care Code OB Routine Diagnoses Hx of delivery, currently O09.899 Supervision of high-risk O09.90 8 weeks gestation of Z3A.08 Weeks of gestation: 8 weeks Obesity affecting O99.210 History of pre-eclampsia in prior , currently O09.299 History of gestational hypertension Z87.59 History of miscarriage, currently O09.299 History of delivery, currently O34.219 Assessment and Plan Assessment and Plan (1) Hx of delivery, currently : Status: Acute Comment: Pre-term labor w/PPROM @ 35weeks with 2nd child (2) Supervision of high-risk : Status: Acute Comment: ; SAJAN 11/11/25; PC: Rojas Nava & Ramakrishna; : CELIA (3) : Status: Acute Qualifiers: Weeks of gestation: 8 weeks Qualified Code(s): Z3A.08 - 8 weeks gestation of Comment: Discussed genetic/carrier testing - undecided (4) Obesity affecting : Status: Acute Comment: BMI 30.1; HgBA1C ordered w/NOB (5) History of pre-eclampsia in prior , currently : Status: Acute Comment: Baby ASA @ 12-28weeks; Pre-e baseline labs ordered w/NOB (6) History of gestational hypertension: Status: Acute (7) History of miscarriage, currently : Status: Acute Comment: x2 w/1 D&C (8) History of delivery, currently : Status: Acute Comment: x3; Desires rpt csec Comments Comments: Patient oriented to practice and discussed care expectations and screenings. ACOG book offered to patient. Discussed routine and specially indicated labs if needed- patient consents to testing. See problem list details for plan information. Optional screening including maternal carrier screenings, neural tube defect screening, genetic screening options including quad screen, nuchal translucency, sequential screening, and NIPT screening offered to patient and patient chose: denies Clinical Quality Measures Falls Risk Screening/Assistive Devices Have you fallen in the past year?: No 04/07/25940 <Electronically signed by Enid woodward CNM> Date _ Enid Reyez CNM Cosigner Signature: Date (if applicable) CC: ~ [facility] Work Phone: Progress note Author Angelia Colindres [facility] Note Date/Time July 29, 2025 10:27am [facility] [address], [address] [place] [address] OFFICE VISIT Date of Service: 07/29/25 MR#: [id number] Acct: [id number] Name: GERALD MILLER Rep #: [id number] : 1995 Provider: Dr. Delmer Colindres MD Age/Sex: 29/F Location[place] [facility] [place] Status: Signed Intake Vital Signs 04/07/25 08:46 07/03/25 09:51 07/29/25 09:48 Height 5 ft 3 in 5 ft 3 in 5 ft 3 in Weight: 195 lb 6 oz BMI 34.6 BP 121/80 H Intake Visit Reasons: 25wk ob *doc only Waist Fitter Required: No Is patient in pain?: No Allergies No Known Allergies Allergy (Verified 07/29/25 09:55) Medications ?Medication ?Instructions ?Recorded ?Confirmed ?Type docosahexaenoic acid 200 mg mg PO 03/28/25 07/29/25 Hi story capsule ( DHA) ondansetron 4 mg disintegrating 4 mg PO Q6H PRN nausea and 04/08/25 07/29/25 Rx tablet vomiting #90 tabs aspirin 81 mg tablet 81 mg PO QDAY 06/18/2507/29 History Last Menstrual Period: 02/04/25 Zika: Zika virus screening: Negative : No PFSH PFSH Medical History Seasonal allergies History of premature rupture of membranes (PPROM) History of pre-term labor History of miscarriage Anxiety Surgical History Hx of wisdom tooth extraction S/P H/O dilation and curettage Social History adopted: No household members: spouse and children housing: house number of children: 3 current occupational status: employed current occupation: [employer] current occupational exposures/hazards: No pets and animals: Yes pets and animals: dog(s) history of recent travel: Yes ( - February 2025) out of state: Yes out of country: No sexually active: Yes Smoking Status: Never smoker second hand exposure: No alcohol intake: never substance use type: does not use well-balanced diet: daily or most days caffeine: Yes Type: carbonated beverages Number of servings: 1 eating out: 1-3 times/week during the past year weight has: remained stable what type of physical activity do you participate in: none khai/episcopal: Religion seatbelt use: always do you feel safe at home: Yes 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 Date Name GA/Weeks Outcome Route Bth Weight Gen Labor Lgth Anesthesia Del Locatn Provider FOB 07/21/18 4 spontaneous TJ 09/20/18 11 spontaneous TJ 11/23/18 Elijah 38 live - full term 7lbs 4oz Male spinal [place] TJ 12/24/20 Rojas 35 live - 6lbs 4oz Male s manuel [facility] Dr. Dailey TJ 05/19/23 Ramakrishna 37 live - full term 7lbs 9oz Male spinal [facility] Katia YANG Delivery Date: 07/21/18 Last Updated by: Gina Staley RN Passed naturally Delivery Date: 09/20/18 Last Updated by: Gina Staley RN D&C Delivery Date: 11/23/18 Last Updated by: Gina Staley RN [facility]: CAT II FHT Delivery Date: 12/24/20 Last Updated by: Delmy Welsh PPROM Delivery Date: 05/19/23 Last Updated by: Alicia Renee RLTCS 37 wks preeclampsia HPI 25wk ob *doc only Details: GERALD MILLER is a 29 year old who presents for routine OB visit. OB Visit SAJAN Calculator Estimated Delivery Date Method Current WG Current Estimate 11/11/25 LMP (Certain) 25w 0d Other Estimates 11/10/25 Ultrasound #1 25w 1d Expected Delivery Route/Plan repeat C/S with SM considenrg BS Specific Issue/Plans Covid status: [] Flu vaccine: [] Tdap vaccine: [] Rhogam: [] LARC form signed: [] Problem list reviewed and updated with the most current plan of care details and appropriate orders placed. Relevant counseling for the gestational age provided. Continue routine care and follow up unless otherwise noted in visit notes/problem list details Initial Weight: 177 lb Date -?-?-?-?--?-?-?-?-?-?-?-?- EGA Weight BP Urine Prot -?-?-?-?-?-?-?-?-?-?-?-?- Glucose FHR FuHt Pres Dilation -?-?-?-?-?-?-?-?-?-?-?-?- Effaced St Visit Note 04/07/25 -?-?-?-?-?-?-?-?-?-?-?-?- 8w 6d 177 lb 2 oz (+2 oz) 139/88 -?-?-?-?-?-?-?-?-?-?-?-?- 173 -?-?-?-?-?-?-?-?-?-?-?-?- KW- CRL cons wit h dates. Declines NIPT. KW- CRL cons with dates. Dec lines NIPT. start asa for GHTN/pre e 05/05/25 -?-?-?-?-?-?-?-?-?-?-?-?- 12w 6d 180 lb 6 oz (+3 lb 6 oz) 144/87 Negative -?-?-?-?-?-?-?-?-?-?-?-?- Negative 160 -?-?-?-?-?-?-?-?-?-?-?-?- SM- no vb lof cr amping nausea stable 06/04/25 -?-?-?-?-?-?-?-?-?-?-?-?- 17w 1d 184 lb 2 oz (+7 lb 2 oz) 143/93 126/85 Negative -?-?-?-?-?-?-?-?-?-?-?-?- Negative 145 -?-?-?-?-?-?-?-?-?-?-?-?- SM- normal bps a t home SM- normal bps at home, will start tracking and bring in, no vb crmaping 07/03/25 -?-?-?-?-?-?-?-?-?-?-?-?- 21w 2d 187 lb 5 oz (+10 lb 5 oz) 132/80 Negative -?-?-?-?-?-?-?-?-?-?-?-?- Negative 145 -?-?-?-?-?-?-?-?-?-?-?-?- SM- no vb lof go od fm n oreuglar ctx girl concha 07/29/25 -?-?-?-?-?-?-?-?-?-?-?-?- 25w 0d 195 lb 6 oz (+18 lb 6 oz) 121/80 Negative -?-?-?-?-?-?-?-?-?-?-?-?- Negative 145 26 -?-?-?-?-?-?-?-?-?-?-?-?- SM- no vb lof go od fm n oregualr ctx ACOG First Trimester First Trimester: Desire for , Alcohol, Tobacco Cessation, Illicit/Recreational Drug/Substance Use, Intimate Partner Violence, Barriers to care, Unstable Housing, Communication Barriers, Environmental/Work Hazards, Anticipated Course of Care, Toxoplasmosis Precations, Use of Any medications, Sexual activity, Exercise, Dental Care, Sauna/Hot tub use, Seat Belt use, Childbirth classes/Hospital facilities, Travel, Indications for Ultrasound and Screening for Aneuploidy; Discussed Second Trimester Second Trimester: Signs and Symptoms of Labor, Selecting a care provider, Reproductive Life Planning & Contreception, Care Planning, Depression/Anxiety and Intimate Partner Violence; Discussed Tobacco Cessation Third Trimester Third Trimester: Pain Management Plans, Labor support person(s), Immediate Larc, Circumcision preference, Movement Monitoring, Signs and Symptoms of Preeclampsia, Infant Feeding No , Education and Family Medical Leave or Disability Forms Results POC Urinalysis 2 Dip (Clinic) Office Urine Glucose Negative Last Edit by Anahi Sibley on 07/29/25 10:11 Office Urine Protein Negative Last Edit by Anahi Sibley on 07/29/25 10:11 Coding Level of Care Code OB Routine Diagnoses GBS (group B streptococcus) UTI complicating O23.40; B95.1 Hx of delivery, currently O09.899 Supervision of high-risk O09.90 25 weeks gestation of Z3A.25 Weeks of gestation: 25 weeks Obesity affecting O99.210 History of pre-eclampsia in prior , currently O09.299 History of gestational hypertension Z87.59 History of miscarriage, currently O09.299 History of delivery, currently O34.219 Assessment and Plan Assessment and Plan (1) GBS (group B streptococcus) UTI complicating : Status: Acute Comment: treat in labor (2) Hx of delivery, currently : Status: Acute Comment: Pre-term labor w/PPROM @ 35weeks with 2nd child (3) Supervision of high-risk : Status: Acute Comment: PRR, ; SAJAN 11/11/25; PC: Rojas Nava & Ramakrishna; : TJ (4) : Status: Acute Qualifiers: Weeks of gestation: 25 weeks Qualified Code(s): Z3A.25 - 25 weeks gestation of Comment: Discussed genetic/carrier testing - undecided (5) Obesity affecting : Status: Acute Comment: BMI 30.1; HgBA1C normal (6) History of pre-eclampsia in prior , currently : Status: Acute Comment: Baby ASA @ 12-28weeks; Pre-e labs nl (7) History of gestational hypertension: Status: Acute (8) History of miscarriage, currently : Status: Acute Comment: x2 w/1 D&C (9) History of delivery, currently : Status: Acute Comment: x3; Desires rpt csec Orders: Orders POC Urinalysis 2 Dip (Clinic) Today CBC W/Diff, Automated Today O09.90 - Supervision of high risk , unspecified, unspecified trimester Glucose Challenge Gest 1H 50g Today O09.90 - Supervision of high risk , unspecified, unspecified trimester, Z13.1 - Encounter for screening for diabetes mellitus HIV Today O09.90 - Supervision of high risk , unspecified, unspecified trimester Syphilis Antibodies Today O09.90 - Supervision of high risk , unspecified, unspecified trimester 07/29/25 1027 <Electronically signed by Angelia palma MD> Date _ Angelia Colindres MD Cosign Signature: Date (if applicable) CC: ~ [facility] Work Phone: Progress note Author Angelia Colindres [facility] Note Date/Time September 05, 2025 9 :15am [facility] [address] [place] [address], [address] [place] [address] OFFICE VISIT Date of Service: 09/05/25 MR#: [id number] Acct: [id number] Name: ANGELAGERALDBON CORTÉS Rep #: [id number] : 1995 Provider: Dr. Delmer Colindres MD Age/Sex: 29/F Location[place] [facility] [place] Status: Signed Intake Vital Signs 07/03/25 09:51 08/21/25 14:28 09/05/25 08:49 Height 5 ft 3 in 5 ft 3 in 5 ft 3 in Weight: 205 lb 7 oz BMI 36.3 BP 137/83 H Intake Visit Reasons: 30 wk ob *doc only Waist Fitter Required: No Is patient in pain?: Yes (headache) Allergies No Known Allergies Allergy (Verified 09/05/25 08:57) Medications ?Medication ?Instructions ?Recorded ?Confirmed ?Type docosahexaenoic acid 200 mg mg PO 03/28/25 09/05/25 Hi story capsule ( DHA) ondansetron 4 mg disintegrating 4 mg PO Q6H PRN nausea and 04/08/25 09/05/25 Rx tablet vomiting #90 tabs aspirin 81 mg tablet 81 mg PO QDAY 06/18/2509/05 History Last Menstrual Period: 02/04/25 : No PFSH PFSH Medical History Seasonal allergies History of premature rupture of membranes (PPROM) History of pre-term labor History of miscarriage Anxiety Surgical History Hx of wisdom tooth extraction S/P H/O dilation and curettage Social History adopted: No household members: spouse and children housing: house number of children: 3 current occupational status: employed current occupation: [employer] current occupational exposures/hazards: No pets and animals: Yes pets and animals: dog(s) history of recent travel: Yes ( - February 2025) out of state: Yes out of country: No sexually active: Yes Smoking Status: Never smoker second hand exposure: No alcohol intake: never substance use type: does not use well-balanced diet: daily or most days caffeine: Yes Type: carbonated beverages Number of servings: 1 eating out: 1-3 times/week during the past year weight has: remained stable what type of physical activity do you participate in: none khai/episcopal: Religion seatbelt use: always do you feel safe at home: Yes 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 Date Name GA/Weeks Outcome Route Bth Weight Gen Labor Lgth Anesthesia Del Locatn Provider FOB 09/01/18 4 spontaneous TJ 09/20/18 11 spontaneous TJ 11/23/18 Elijah 38 live - full term 7lbs 4oz Male spinal [place] TJ 12/24/20 Rojas 35 live - 6lbs 4oz Male s manuel [facility] Dr. Ashlie YANG 05/19/23 Ramakrishna 37 live - full term 7lbs 9oz Male spinal [facility] Katia TJ Delivery Date: 07/21/18 Last Updated by: Gina Staley RN Passed naturally Delivery Date: 09/20/18 Last Updated by: Gina Staley RN D&C Delivery Date: 11/23/18 Last Updated by: Gina Staley RN [facility]: CAT II FHT Delivery Date: 12/24/20 Last Updated by: Delmy Welsh PPROM Delivery Date: 05/19/23 Last Updated by: Alicia Renee RLTCS 37 wks preeclampsia HPI 30 wk ob *doc only Details: GERALD MILLER is a 29 year old who presents for routine OB visit. OB Visit SAJAN Calculator Estimated Delivery Date Method Current WG Current Estimate 11/11/25 LMP (Certain) 30w 3d Other Estimates 11/10/25 Ultrasound #1 30w 4d Expected Delivery Route/Plan repeat C/S with SM considenrg BS Specific Issue/Plans Covid status: [] Flu vaccine: [] Tdap vaccine: [] Rhogam: [] LARC form signed: [] Problem list reviewed and updated with the most current plan of care details and appropriate orders placed. Relevant counseling for the gestational age provided. Continue routine care and follow up unless otherwise noted in visit notes/problem list details Initial Weight: 177 lb Date -?-?-?-?-?-?-?-?-?-?-?-?- EGA Weight BP Urine Prot -?-?-?-?-?-?-?-?-?-?-?-?- Glucose FHR FuHt Pres Dilation -?-?-?-?-?-?-?-?-?-?-?-?- Effaced St Visit Note 04/07/25 -?-?-?-?-?-?-?-?-?-?-?-?- 8w 6d 177 lb 2 oz (+2 oz) 139/88 -?-?-?-?-?-?-?-?-?-?-?-?- 173 -?-?-?-?-?-?-?-?-?-?-?-?- KW- CRL cons wit h dates. Declines NIPT. KW- CRL cons with dates. Dec lines NIPT. start asa for GHTN/pre e 05/05/25 -?-?-?-?-?-?-?-?--?-?-?-?- 12w 6d 180 lb 6 oz (+3 lb 6 oz) 144/87 Negative -?-?-?-?-?-?-?-?-?-?-?-?- Negative 160 -?-?-?-?-?-?-?-?-?-?-?-?- SM- no vb lof cr amping nausea stable 06/04/25 -?-?-?-?-?-?-?-?-?-?-?-?- 17w 1d 184 lb 2 oz (+7 lb 2 oz) 143/93 126/85 Negative -?-?-?-?-?-?-?-?-?-?-?-?- Negative 145 -?-?-?-?-?-?-?-?-?-?-?-?- SM- normal bps a t home SM- normal bps at home, will start tracking and bring in, no vb crmaping 07/03/25 -?-?-?-?-?-?-?-?-?-?-?-?- 21w 2d 187 lb 5 oz (+10 lb 5 oz) 132/80 Negative -?-?-?-?-?-?-?-?-?-?-?-?- Negative 145 -?-?-?-?-?-?-?-?-?-?-?-?- SM- no vb lof go od fm n oreuglar ctx girl concha 07/29/25 -?-?-?-?-?-?-?-?-?-?-?-?- 25w 0d 195 lb 6 oz (+18 lb 6 oz) 121/80 Negative -?-?-?-?-?-?-?-?-?-?-?-?- Negative 145 26 -?-?-?-?-?-?-?-?-?-?-?-?- SM- no vb lof go od fm n oregualr ctx 08/21/25 -?-?-?-?-?-?-?-?-?-?-?-?- 28w 2d 201 lb (+24 lb) 146/81 126/78 126/78 -?-?-?-?-?-?-?-?-?-?-?-?- 150 29 -?-?-?-?-?-?-?-?-?-?-?-?- SM- no vb lof go od fm n oregular ct x 09/05/25 -?-?-?-?-?-?-?-?-?-?-?-?- 30w 3d 205 lb 7 oz (+28 lb 7 oz) 137/83 Trace -?-?-?-?-?-?-?-?-?-?-?-?- Negative 140 30 Cephalic -?-?-?-?-?-?-?-?-?-?-?-?- SM- n ovb lof go od fm no reugla ACOG First Trimester First Trimester: Desire for , Alcohol, Tobacco Cessation, Illicit/Recreational Drug/Substance Use, Intimate Partner Violence, Barriers to care, Unstable Housing, Communication Barriers, Environmental/Work Hazards, Anticipated Course of Care, Toxoplasmosis Precations, Use of Any medications, Sexual activity, Exercise, Dental Care, Sauna/Hot tub use, Seat Belt use, Childbirth classes/Hospital facilities, Travel, Indications for Ultrasound and Screening for Aneuploidy; Discussed Second Trimester Second Trimester: Signs and Symptoms of Labor, Selecting a care provider, Reproductive Life Planning & Contreception, Care Planning, Depression/Anxiety and Intimate Partner Violence; Discussed Tobacco Cessation Third Trimester Third Trimester: Pain Management Plans, Labor support person(s), Immediate Larc, Circumcision preference, Movement Monitoring, Signs and Symptoms of Preeclampsia, Feeding No , Education and Family Medical Leave or Disability Forms Results POC Urinalysis 2 Dip (Clinic) Office Urine Glucose Negative Last Edit by Anahi Sibley on 09/05/25 08:58 Office Urine Protein Negative Last Edit by Anahi Silbey on 09/05/25 08:58 Coding Level of Care Code OB Routine Diagnoses GBS (group B streptococcus) UTI complicating O23.40; B95.1 Hx of delivery, currently O09.899 Supervision of high-risk O09.90 30 weeks gestation of Z3A.30 Weeks of gestation: 30 weeks Obesity affecting O99.210 History of pre-eclampsia in prior , currently O09.299 History of gestational hypertension Z87.59 History of miscarriage, currently O09.299 History of delivery, currently O34.219 Assessment and Plan Assessment and Plan (1) GBS (group B streptococcus) UTI complicating : Status: Acute Comment: treat in labor (2) Hx of delivery, currently : Status: Acute Comment: Pre-term labor w/PPROM @ 35weeks with 2nd child (3) Supervision of high-risk : Status: Acute Comment: PRR, ; SAJAN 11/11/25; girl Concha Cortés PC: Rojas Nava & Ramakrishna; : CELIA (4) : Status: Acute Qualifiers: Weeks of gestation: 30 weeks Qualified Code(s): Z3A.30 - 30 weeks gestation of Comment: Discussed genetic/carrier testing - undecided (5) Obesity affecting : Status: Acute Comment: BMI 30.1; HgBA1C normal (6) History of pre-eclampsia in prior , currently : Status: Acute Comment: Baby ASA @ 12-28weeks; Pre-e labs nl (7) History of gestational hypertension: Status: Acute (8) History of miscarriage, currently : Status: Acute Comment: x2 w/1 D&C (9) History of delivery, currently : Status: Acute Comment: x3;rpt csec with 11/05 possible BS Orders: Orders POC Urinalysis 2 Dip (Clinic) Today Protein+Creatinine Ratio,Urine Today R80.9 - Proteinuria, unspecified 09/05/25 0925 <Electronically signed by Angelia palma MD> Date _ Angelia Gutierrez Signature: Date (if applicable) CC: ~ [facility] Work Phone: Reason for referral (narrative)No reason for referral information availableK[facility] Work Phone: Summary Purpose Family History No Family History Records FoundNo Family History Records FoundNo Family History Records FoundNo Family History Records FoundNo Family History Records FoundNo Family History Records FoundNo Family History Records FoundNo Family History Records FoundNo Family History Records FoundNo Family History Records FoundNo Family History Records FoundNo Family History Records FoundNo Family History Records Found Advance Directives No Advanced Directives Records Found Advance Directive Response Recorded Date/ Time Living Will No December 24 5:58pm Power of Wort Extractor No December 24, 2020 5:58pm Advance Directive Response Recorded Date/ Time Living Will No December 24 6:58pm Power of Wort Extractor No December 24, 2020 6:58pm Advance Directive Response Recorded Date/ Time Living Will No March 15, 2023 3:09pm Power of Wort Extractor No March 15 3:09pm Advance Directive Response Recorded Date/ Time Living Will No May 19, 2023 5:41am Power of Wort Extractor No May 19 5:41am Chief Complaint and Reason for Visit Chief Complaint WELL BEING Chief Complaint WELL BEING NOB LMP 09/16 Reason for Visit Anxiety History of delivery Seasonal allergies Supervision of high risk , antepartum Chief Complaint WELL BEING NOB LMP 09/16 12 WK OB, rescan E ORDER est ob 16w 21 WK OB RULE OUT LABOR RULE OUT LABOR Reason for Visit Anxiety History of delivery Seasonal allergies Supervision of high risk , antepartum Anxiety History of delivery Seasonal allergies Supervision of high risk , antepartum Anxiety History of delivery Seasonal allergies Supervision of high risk , antepartum Anxiety History of delivery Supervision of high risk , antepartum Chief Complaint WELL BEING NOB LMP 09/16 12 WK OB, rescan E ORDER est ob 16w 21 WK OB RULE OUT LABOR RULE OUT LABOR R/O PRE E R/O PRE E Reason for Visit Anxiety History of delivery Seasonal allergies Supervision of high risk , antepartum Anxiety History of delivery Seasonal allergies Supervision of high risk , antepartum Anxiety History of delivery Seasonal allergies Supervision of high risk , antepartum Anxiety History of delivery Supervision of high risk , antepartum Anxiety Elevated blood pressure affecting , antepartum Supervision of high risk , antepartum Chief Complaint 12 WK OB, rescan E ORDER est ob 16w 21 WK OB RULE OUT LABOR RULE OUT LABOR R/O PRE E R/O PRE E 24 WK OB 28 WK OB/GLUCOSE Reason for Visit Anxiety History of delivery Seasonal allergies Supervision of high risk , antepartum Anxiety History of delivery Seasonal allergies Supervision of high risk , antepartum Anxiety History of delivery Supervision of high risk , antepartum Anxiety Elevated blood pressure affecting , antepartum Supervision of high risk , antepartum Anxiety Desires (vaginal after ) trial Elevated blood pressure affecting , antepartum History of delivery Hx of delivery, currently Seasonal allergies Supervision of high risk , antepartum Anxiety Desires (vaginal after ) trial Elevated blood pressure affecting , antepartum History of delivery Hx of delivery, currently Seasonal allergies Supervision of high risk , antepartum Chief Complaint est ob 16w 21 WK OB RULE OUT LABOR RULE OUT LABOR R/O PRE E R/O PRE E 24 WK OB 28 WK OB/GLUCOSE 30 WK OB R/O LABOR R/O LABOR 32 WK OB/NST GROWTH, ELEVATED BP 32 WK NST E ORDER 33 WK OB/NST CELESTONE INJECTION/EORDERS FOR LABS Reason for Visit Anxiety History of delivery Seasonal allergies Supervision of high risk , antepartum Anxiety History of delivery Supervision of high risk , antepartum Anxiety Supervision of high risk , antepartum Elevated blood pressure affecting , antepartum Anxiety Desires (vaginal after ) trial History of delivery Hx of delivery, currently Seasonal allergies Supervision of high risk , antepartum Elevated blood pressure affecting , antepartum Anxiety Desires (vaginal after ) trial History of delivery Hx of delivery, currently Seasonal allergies Supervision of high risk , antepartum Elevated blood pressure affecting , antepartum Anxiety Desires (vaginal after ) trial History of delivery Hx of delivery, currently Seasonal allergies Supervision of high risk , antepartum Gestational hypertension History of delivery Hx of delivery, currently Supervision of high risk , antepartum Gestational hypertension Anxiety Desires (vaginal after ) trial History of delivery Hx of delivery, currently Seasonal allergies Supervision of high risk , antepartum Gestational hypertension Anxiety Desires (vaginal after ) trial History of delivery Hx of delivery, currently Seasonal allergies Supervision of high risk , antepartum Gestational hypertension Anxiety Desires (vaginal after ) trial History of delivery Hx of delivery, currently 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 Seasonal allergies Supervision of high risk , antepartum Chief Complaint est ob 16w 21 WK OB RULE OUT LABOR RULE OUT LABOR R/O PRE E R/O PRE E 24 WK OB 28 WK OB/GLUCOSE 30 WK OB R/O LABOR R/O LABOR 32 WK OB/NST GROWTH, ELEVATED BP 32 WK NST E ORDER 33 WK OB/NST CELESTONE INJECTION/EORDERS FOR LABS CELESTONE INJECTION/EORDERS FOR LABS CELESTONE INJECTION Reason for Visit Anxiety History of delivery Seasonal allergies Supervision of high risk , antepartum Anxiety History of delivery Supervision of high risk , antepartum Anxiety Supervision of high risk , antepartum Elevated blood pressure affecting , antepartum Anxiety Desires (vaginal after ) trial History of delivery Hx of delivery, currently Seasonal allergies Supervision of high risk , antepartum Elevated blood pressure affecting , antepartum Anxiety Desires (vaginal after ) trial History of delivery Hx of delivery, currently Seasonal allergies Supervision of high risk , antepartum Elevated blood pressure affecting , antepartum Anxiety Desires (vaginal after ) trial History of delivery Hx of delivery, currently Seasonal allergies Supervision of high risk , antepartum Gestational hypertension History of delivery Hx of delivery, currently Supervision of high risk , antepartum Gestational hypertension Anxiety Desires (vaginal after ) trial History of delivery Hx of delivery, currently Seasonal allergies Supervision of high risk , antepartum Gestational hypertension Anxiety Desires (vaginal after ) trial History of delivery Hx of delivery, currently Seasonal allergies Supervision of high risk , antepartum Gestational hypertension Anxiety Desires (vaginal after ) trial History of delivery Hx of delivery, currently 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 Seasonal allergies Supervision of high risk , antepartum History of delivery Hx of delivery, currently 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 Supervision of high risk , antepartum Chief Complaint est ob 16w 21 WK OB RULE OUT LABOR RULE OUT LABOR R/O PRE E R/O PRE E 24 WK OB 28 WK OB/GLUCOSE 30 WK OB R/O LABOR R/O LABOR 32 WK OB/NST GROWTH, ELEVATED BP 32 WK NST E ORDER 33 WK OB/NST CELESTONE INJECTION/EORDERS FOR LABS CELESTONE INJECTION/EORDERS FOR LABS CELESTONE INJECTION 33 WK NST GROWTH, ELEVATED BP Reason for Visit Anxiety History of delivery Seasonal allergies Supervision of high risk , antepartum Anxiety History of delivery Supervision of high risk , antepartum Anxiety Supervision of high risk , antepartum Elevated blood pressure affecting , antepartum Anxiety Desires (vaginal after ) trial History of delivery Hx of delivery, currently Seasonal allergies Supervision of high risk , antepartum Elevated blood pressure affecting , antepartum Anxiety Desires (vaginal after ) trial History of delivery Hx of delivery, currently Seasonal allergies Supervision of high risk , antepartum Elevated blood pressure affecting , antepartum Anxiety Desires (vaginal after ) trial History of delivery Hx of delivery, currently Seasonal allergies Supervision of high risk , antepartum Gestational hypertension History of delivery Hx of delivery, currently Supervision of high risk , antepartum Gestational hypertension Anxiety Desires (vaginal after ) trial History of delivery Hx of delivery, currently Seasonal allergies Supervision of high risk , antepartum Gestational hypertension Anxiety Desires (vaginal after ) trial History of delivery Hx of delivery, currently Seasonal allergies Supervision of high risk , antepartum Gestational hypertension Anxiety Desires (vaginal after ) trial History of delivery Hx of delivery, currently 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 Seasonal allergies Supervision of high risk , antepartum History of delivery Hx of delivery, currently 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 Supervision of high risk , antepartum Chief Complaint 21 WK OB RULE OUT LABOR RULE OUT LABOR R/O PRE E R/O PRE E 24 WK OB 28 WK OB/GLUCOSE 30 WK OB R/O LABOR R/O LABOR 32 WK OB/NST GROWTH, ELEVATED BP 32 WK NST E ORDER 33 WK OB/NST CELESTONE INJECTION/EORDERS FOR LABS CELESTONE INJECTION/EORDERS FOR LABS CELESTONE INJECTION 33 WK NST GROWTH, ELEVATED BP 34 WK OB/NST Reason for Visit Anxiety History of delivery Supervision of high risk , antepartum Anxiety Supervision of high risk , antepartum Elevated blood pressure affecting , antepartum Anxiety Desires (vaginal after ) trial History of delivery Hx of delivery, currently Seasonal allergies Supervision of high risk , antepartum Elevated blood pressure affecting , antepartum Anxiety Desires (vaginal after ) trial History of delivery Hx of delivery, currently Seasonal allergies Supervision of high risk , antepartum Elevated blood pressure affecting , antepartum Anxiety Desires (vaginal after ) trial History of delivery Hx of delivery, currently Seasonal allergies Supervision of high risk , antepartum Gestational hypertension History of delivery Hx of delivery, currently Supervision of high risk , antepartum Gestational hypertension Anxiety Desires (vaginal after ) trial History of delivery Hx of delivery, currently Seasonal allergies Supervision of high risk , antepartum Gestational hypertension Anxiety Desires (vaginal after ) trial History of delivery Hx of delivery, currently Seasonal allergies Supervision of high risk , antepartum Gestational hypertension Anxiety Desires (vaginal after ) trial History of delivery Hx of delivery, currently 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 Seasonal allergies Supervision of high risk , antepartum History of delivery Hx of delivery, currently 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 Supervision of high risk , antepartum Anxiety Desires (vaginal after ) trial History of delivery Hx of delivery, currently 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 Seasonal allergies Supervision of high risk , antepartum Anxiety Desires (vaginal after ) trial History of delivery Hx of delivery, currently 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 Seasonal allergies Supervision of high risk , antepartum Chief Complaint 21 WK OB RULE OUT LABOR RULE OUT LABOR R/O PRE E R/O PRE E 24 WK OB 28 WK OB/GLUCOSE 30 WK OB R/O LABOR R/O LABOR 32 WK OB/NST GROWTH, ELEVATED BP 32 WK NST E ORDER 33 WK OB/NST CELESTONE INJECTION/EORDERS FOR LABS CELESTONE INJECTION/EORDERS FOR LABS CELESTONE INJECTION 33 WK NST GROWTH, ELEVATED BP 34 WK OB/NST GROWTH, ELEVATED BP 34 WK NST R/O PRE-E R/O PRE-E 35 WK NST RULE OUT LABOR 35 WK OB/NST EXTENDED MONITORING Reason for Visit Anxiety History of delivery Supervision of high risk , antepartum Anxiety Supervision of high risk , antepartum Elevated blood pressure affecting , antepartum Anxiety Desires (vaginal after ) trial History of delivery Hx of delivery, currently Seasonal allergies Supervision of high risk , antepartum Elevated blood pressure affecting , antepartum Anxiety Desires (vaginal after ) trial History of delivery Hx of delivery, currently Seasonal allergies Supervision of high risk , antepartum Elevated blood pressure affecting , antepartum Anxiety Desires (vaginal after ) trial History of delivery Hx of delivery, currently Seasonal allergies Supervision of high risk , antepartum Gestational hypertension History of delivery Hx of delivery, currently Supervision of high risk , antepartum Gestational hypertension Anxiety Desires (vaginal after ) trial History of delivery Hx of delivery, currently Seasonal allergies Supervision of high risk , antepartum Gestational hypertension Anxiety Desires (vaginal after ) trial History of delivery Hx of delivery, currently Seasonal allergies Supervision of high risk , antepartum Gestational hypertension Anxiety Desires (vaginal after ) trial History of delivery Hx of delivery, currently 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 Seasonal allergies Supervision of high risk , antepartum History of delivery Hx of delivery, currently 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 Supervision of high risk , antepartum Anxiety Desires (vaginal after ) trial History of delivery Hx of delivery, currently 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 Seasonal allergies Supervision of high risk , antepartum Anxiety Desires (vaginal after ) trial History of delivery Hx of delivery, currently 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 Seasonal allergies Supervision of high risk , antepartum Anxiety Desires (vaginal after ) trial History of delivery Hx of delivery, currently 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 Seasonal allergies Supervision of high risk , antepartum Anxiety Desires (vaginal after ) trial History of delivery Hx of delivery, currently 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 Seasonal allergies Supervision of high risk , antepartum Desires (vaginal after ) trial History of delivery Hx of delivery, currently 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 Supervision of high risk , antepartum Anxiety Desires (vaginal after ) trial History of delivery Hx of delivery, currently 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 Seasonal allergies Supervision of high risk , antepartum Anxiety Desires (vaginal after ) trial Gestational thrombocytopenia History of delivery Hx of delivery, currently 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 Seasonal allergies Supervision of high risk , antepartum Chief Complaint 21 WK OB RULE OUT LABOR RULE OUT LABOR R/O PRE E R/O PRE E 24 WK OB 28 WK OB/GLUCOSE 30 WK OB R/O LABOR R/O LABOR 32 WK OB/NST GROWTH, ELEVATED BP 32 WK NST E ORDER 33 WK OB/NST CELESTONE INJECTION/EORDERS FOR LABS CELESTONE INJECTION/EORDERS FOR LABS CELESTONE INJECTION CELESTONE INJECTION 33 WK NST GROWTH, ELEVATED BP 34 WK OB/NST GROWTH, ELEVATED BP 34 WK NST R/O PRE-E R/O PRE-E 35 WK NST RULE OUT LABOR 35 WK OB/NST EXTENDED MONITORING EXTENDED MONITORING 36 WK NST Reason for Visit Anxiety History of delivery Supervision of high risk , antepartum Anxiety Supervision of high risk , antepartum Elevated blood pressure affecting , antepartum Anxiety Desires (vaginal after ) trial History of delivery Hx of delivery, currently Seasonal allergies Supervision of high risk , antepartum Elevated blood pressure affecting , antepartum Anxiety Desires (vaginal after ) trial History of delivery Hx of delivery, currently Seasonal allergies Supervision of high risk , antepartum Elevated blood pressure affecting , antepartum Anxiety Desires (vaginal after ) trial History of delivery Hx of delivery, currently Seasonal allergies Supervision of high risk , antepartum Gestational hypertension History of delivery Hx of delivery, currently Supervision of high risk , antepartum Gestational hypertension Anxiety Desires (vaginal after ) trial History of delivery Hx of delivery, currently Seasonal allergies Supervision of high risk , antepartum Gestational hypertension Anxiety Desires (vaginal after ) trial History of delivery Hx of delivery, currently Seasonal allergies Supervision of high risk , antepartum Gestational hypertension Anxiety Desires (vaginal after ) trial History of delivery Hx of delivery, currently 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 Seasonal allergies Supervision of high risk , antepartum History of delivery Hx of delivery, currently 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 Supervision of high risk , antepartum Anxiety Desires (vaginal after ) trial Gestational thrombocytopenia History of delivery Hx of delivery, currently 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 Seasonal allergies Supervision of high risk , antepartum Anxiety Desires (vaginal after ) trial History of delivery Hx of delivery, currently 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 Seasonal allergies Supervision of high risk , antepartum Anxiety Desires (vaginal after ) trial History of delivery Hx of delivery, currently 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 Seasonal allergies Supervision of high risk , antepartum Anxiety Desires (vaginal after ) trial History of delivery Hx of delivery, currently 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 Seasonal allergies Supervision of high risk , antepartum Anxiety Desires (vaginal after ) trial History of delivery Hx of delivery, currently 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 Seasonal allergies Supervision of high risk , antepartum Desires (vaginal after ) trial History of delivery Hx of delivery, currently 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 Supervision of high risk , antepartum Anxiety Desires (vaginal after ) trial History of delivery Hx of delivery, currently 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 Seasonal allergies Supervision of high risk , antepartum Anxiety Desires (vaginal after ) trial Gestational thrombocytopenia History of delivery Hx of delivery, currently 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 Seasonal allergies Supervision of high risk , antepartum Chief Complaint 21 WK OB RULE OUT LABOR RULE OUT LABOR R/O PRE E R/O PRE E 24 WK OB 28 WK OB/GLUCOSE 30 WK OB R/O LABOR R/O LABOR 32 WK OB/NST GROWTH, ELEVATED BP 32 WK NST E ORDER 33 WK OB/NST CELESTONE INJECTION/EORDERS FOR LABS CELESTONE INJECTION/EORDERS FOR LABS CELESTONE INJECTION CELESTONE INJECTION 33 WK NST GROWTH, ELEVATED BP 34 WK OB/NST GROWTH, ELEVATED BP 34 WK NST R/O PRE-E R/O PRE-E 35 WK NST RULE OUT LABOR 35 WK OB/NST EXTENDED MONITORING EXTENDED MONITORING 36 WK NST 36 WK OB/NST GROWTH, ELEVATED BP 37 WK OB/NST REPEAT REPEAT REPEAT Reason for Visit Anxiety History of delivery Supervision of high risk , antepartum Anxiety Elevated blood pressure affecting , antepartum Supervision of high risk , antepartum Anxiety Desires (vaginal after ) trial Elevated blood pressure affecting , antepartum History of delivery Hx of delivery, currently Seasonal allergies Supervision of high risk , antepartum Anxiety Desires (vaginal after ) trial Elevated blood pressure affecting , antepartum History of delivery Hx of delivery, currently Seasonal allergies Supervision of high risk , antepartum Anxiety Desires (vaginal after ) trial Gestational hypertension History of delivery Hx of delivery, currently Seasonal allergies Supervision of high risk , antepartum Gestational hypertension History of delivery Hx of delivery, currently Supervision of high risk , antepartum Anxiety Desires (vaginal after ) trial Gestational hypertension History of delivery Hx of delivery, currently Seasonal allergies Supervision of high risk , antepartum Anxiety Desires (vaginal after ) trial Gestational hypertension History of delivery Hx of delivery, currently Seasonal allergies Supervision of high risk , antepartum 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 Anxiety Desires (vaginal after ) trial History of delivery Hx of delivery, currently Seasonal allergies Supervision of high risk , antepartum 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 History of delivery Hx of delivery, currently Supervision of high risk , antepartum 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 Anxiety Desires (vaginal after ) trial Gestational thrombocytopenia History of delivery Hx of delivery, currently Seasonal allergies Supervision of high risk , antepartum 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 Anxiety Desires (vaginal after ) trial History of delivery Hx of delivery, currently Seasonal allergies Supervision of high risk , antepartum 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 Anxiety Desires (vaginal after ) trial History of delivery Hx of delivery, currently Seasonal allergies Supervision of high risk , antepartum 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 Anxiety Desires (vaginal after ) trial History of delivery Hx of delivery, currently Seasonal allergies Supervision of high risk , antepartum 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 Anxiety Desires (vaginal after ) trial History of delivery Hx of delivery, currently Seasonal allergies Supervision of high risk , antepartum 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 Desires (vaginal after ) trial History of delivery Hx of delivery, currently Supervision of high risk , antepartum 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 Anxiety Desires (vaginal after ) trial History of delivery Hx of delivery, currently Seasonal allergies Supervision of high risk , antepartum 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 Anxiety Desires (vaginal after ) trial Gestational thrombocytopenia History of delivery Hx of delivery, currently Seasonal allergies Supervision of high risk , antepartum 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 Anxiety Desires (vaginal after ) trial Gestational thrombocytopenia History of delivery Hx of delivery, currently Seasonal allergies Supervision of high risk , antepartum 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 Anxiety Desires (vaginal after ) trial Gestational thrombocytopenia History of delivery Hx of delivery, currently Seasonal allergies Supervision of high risk , antepartum 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 Status post section routine follow-up Anxiety Desires (vaginal after ) trial Gestational thrombocytopenia History of delivery Hx of delivery, currently Seasonal allergies Supervision of high risk , antepartum Chief Complaint RULE OUT LABOR RULE OUT LABOR R/O PRE E R/O PRE E 24 WK OB 28 WK OB/GLUCOSE 30 WK OB R/O LABOR R/O LABOR 32 WK OB/NST GROWTH, ELEVATED BP 32 WK NST E ORDER 33 WK OB/NST CELESTONE INJECTION/EORDERS FOR LABS CELESTONE INJECTION/EORDERS FOR LABS CELESTONE INJECTION CELESTONE INJECTION 33 WK NST GROWTH, ELEVATED BP 34 WK OB/NST GROWTH, ELEVATED BP 34 WK NST R/O PRE-E R/O PRE-E 35 WK NST RULE OUT LABOR 35 WK OB/NST EXTENDED MONITORING EXTENDED MONITORING 36 WK NST 36 WK OB/NST GROWTH, ELEVATED BP 37 WK OB/NST REPEAT REPEAT REPEAT incision check *does she still have 2nd ins Reason for Visit Anxiety Elevated blood pressure affecting , antepartum Supervision of high risk , antepartum Anxiety Desires (vaginal after ) trial Elevated blood pressure affecting , antepartum History of delivery Hx of delivery, currently Seasonal allergies Supervision of high risk , antepartum Anxiety Desires (vaginal after ) trial Elevated blood pressure affecting , antepartum History of delivery Hx of delivery, currently Seasonal allergies Supervision of high risk , antepartum Anxiety Desires (vaginal after ) trial Gestational hypertension History of delivery Hx of delivery, currently Seasonal allergies Supervision of high risk , antepartum Gestational hypertension History of delivery Hx of delivery, currently Supervision of high risk , antepartum Anxiety Desires (vaginal after ) trial Gestational hypertension History of delivery Hx of delivery, currently Seasonal allergies Supervision of high risk , antepartum Anxiety Desires (vaginal after ) trial Gestational hypertension History of delivery Hx of delivery, currently Seasonal allergies Supervision of high risk , antepartum Anxiety Desires (vaginal after ) trial History of delivery Hx of delivery, currently 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 Seasonal allergies Supervision of high risk , antepartum History of delivery Hx of delivery, currently 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 Supervision of high risk , antepartum Anxiety Desires (vaginal after ) trial Gestational thrombocytopenia History of delivery Hx of delivery, currently 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 Seasonal allergies Supervision of high risk , antepartum Anxiety Desires (vaginal after ) trial History of delivery Hx of delivery, currently 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 Seasonal allergies Supervision of high risk , antepartum Anxiety Desires (vaginal after ) trial History of delivery Hx of delivery, currently 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 Seasonal allergies Supervision of high risk , antepartum Anxiety Desires (vaginal after ) trial History of delivery Hx of delivery, currently 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 Seasonal allergies Supervision of high risk , antepartum Anxiety Desires (vaginal after ) trial History of delivery Hx of delivery, currently 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 Seasonal allergies Supervision of high risk , antepartum Desires (vaginal after ) trial History of delivery Hx of delivery, currently 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 Supervision of high risk , antepartum Anxiety Desires (vaginal after ) trial History of delivery Hx of delivery, currently 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 Seasonal allergies Supervision of high risk , antepartum Anxiety Desires (vaginal after ) trial Gestational thrombocytopenia History of delivery Hx of delivery, currently 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 Seasonal allergies Supervision of high risk , antepartum Anxiety Desires (vaginal after ) trial Gestational thrombocytopenia History of delivery Hx of delivery, currently 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 Seasonal allergies Supervision of high risk , antepartum Anxiety Desires (vaginal after ) trial Gestational thrombocytopenia History of delivery Hx of delivery, currently 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 Seasonal allergies Supervision of high risk , antepartum Status post section routine follow-up Anxiety Desires (vaginal after ) trial Gestational thrombocytopenia History of delivery Hx of delivery, currently 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 Seasonal allergies Supervision of high risk , antepartum Status post section routine follow-up Chief Complaint Admit Date Amb Documentation March 28, 2025 9:30am NOB LMP 02/04April 07, 2025 8:32a m Reason for Visit Admit Date History of delivery, currently April 07, 2025 8:32am History of gestational hypertension April 07, 2025 8:32am History of miscarriage, currently pregna nt April 07, 2025 8:32am History of pre-eclampsia in prior pregna ncy, currently April 07, 2025 8:32am Hx of delivery, currently pregna nt April 07, 2025 8:32am Obesity affecting April 07 8:32am April 07, 2025 8:32a m Supervision of high-risk March 202024 8:32am Chief Complaint Admit Date Amb Documentation March 28, 2025 9:30am NOB LMP 02/04April 07, 2025 8:32a m 13WK OB *doc only May 05, 2025 8:46 am Reason for Visit Admit Date History of delivery, currently April 07, 2025 8:32am History of gestational hypertension April 07, 2025 8:32am History of miscarriage, currently pregna nt April 07, 2025 8:32am History of pre-eclampsia in prior , currently April 07, 2025 8:32am Hx of delivery, currently pregna nt April 07, 2025 8:32am Obesity affecting April 07 8:32am April 07, 2025 8:32a m Supervision of high-risk March 202024 8:32am GBS (group B streptococcus) UTI complica ting May 05, 2025 8:46am History of delivery, currently May 05, 2025 8:46am History of gestational hypertension May 05, 2025 8:46am History of miscarriage, currently pregna nt May 05, 2025 8:46am History of pre-eclampsia in prior , currently May 05, 2025 8:46am Hx of delivery, currently pregna nt May 05, 2025 8:46am Obesity affecting May 05, 025 8:46am May 05, 2025 8:46 am Supervision of high-risk May 05, 2025 8:46am Chief Complaint Admit Date Amb Documentation March 28, 2025 9:30am NOB LMP 02/04April 07, 2025 8:32a m 13WK OB *doc only May 05, 2025 8:46 am 17wk ob *doc only June 04, 2025 10:1 3am Reason for Visit Admit Date History of delivery, currently April 07, 2025 8:32am History of gestational hypertension April 07, 2025 8:32am History of miscarriage, currently pregna nt April 07, 2025 8:32am History of pre-eclampsia in prior , currently April 07, 2025 8:32am Hx of delivery, currently pregna nt April 07, 2025 8:32am Obesity affecting April 07 8:32am April 07, 2025 8:32a m Supervision of high-risk March 202024 8:32am GBS (group B streptococcus) UTI complica ting May 05, 2025 8:46am History of delivery, currently May 05, 2025 8:46am History of gestational hypertension May 05, 2025 8:46am History of miscarriage, currently pregna nt May 05, 2025 8:46am History of pre-eclampsia in prior , currently May 05, 2025 8:46am Hx of delivery, currently pregna nt May 05, 2025 8:46am Obesity affecting May 05, 025 8:46am May 05, 2025 8:46 am Supervision of high-risk May 05, 2025 8:46am GBS (group B streptococcus) UTI complica ting June 04, 2025 10:13am History of delivery, currently June 04, 2025 10:13am History of gestational hypertension June 04, 2025 10:13am History of miscarriage, currently pregna nt June 04, 2025 10:13am History of pre-eclampsia in prior , currently June 04, 2025 10:13am Hx of delivery, currently pregna nt June 04, 2025 10:13am Obesity affecting June 04, 2 025 10:13am June 04, 2025 10:1 3am Supervision of high-risk June 04, 2025 10:13am Chief Complaint Admit Date Amb Documentation March 28, 2025 9:30am NOB LMP 02/04April 07, 2025 8:32a m 13WK OB *doc only May 05, 2025 8:46 am 17wk ob *doc only June 04, 2025 10:1 3am 19wk ob BP check *per SM June 18, 2025 8:31am Reason for Visit Admit Date History of delivery, currently April 07, 2025 8:32am History of gestational hypertension April 07, 2025 8:32am History of miscarriage, currently pregna nt April 07, 2025 8:32am History of pre-eclampsia in prior , currently April 07, 2025 8:32am Hx of delivery, currently pregna nt April 07, 2025 8:32am Obesity affecting April 07 8:32am April 07, 2025 8:32a m Supervision of high-risk March 202024 8:32am GBS (group B streptococcus) UTI complica ting May 05, 2025 8:46am History of delivery, currently May 05, 2025 8:46am History of gestational hypertension May 05, 2025 8:46am History of miscarriage, currently pregna nt May 05, 2025 8:46am History of pre-eclampsia in prior , currently May 05, 2025 8:46am Hx of delivery, currently pregna nt May 05, 2025 8:46am Obesity affecting May 05, 2 025 8:46am May 05, 2025 8:46 am Supervision of high-risk May 05, 2025 8:46am GBS (group B streptococcus) UTI complica ting June 04, 2025 10:13am History of delivery, currently June 04, 2025 10:13am History of gestational hypertension June 04, 2025 10:13am History of miscarriage, currently pregna nt June 04, 2025 10:13am History of pre-eclampsia in prior , currently June 04, 2025 10:13am Hx of delivery, currently pregna nt June 04, 2025 10:13am Obesity affecting June 04, 025 10:13am June 04, 2025 10:1 3am Supervision of high-risk June 04, 2025 10:13am GBS (group B streptococcus) UTI complica ting June 18, 2025 8:31am History of delivery, currently June 18, 2025 8:31am History of gestational hypertension June 18, 2025 8:31am History of miscarriage, currently pregna nt June 18, 2025 8:31am History of pre-eclampsia in prior , currently June 18, 2025 8:31am Hx of delivery, currently pregna nt June 18, 2025 8:31am Obesity affecting June 18, 025 8:31am June 18, 2025 8:31 am Supervision of high-risk June 18, 2025 8:31am Chief Complaint Admit Date Amb Documentation March 28, 2025 9:30am NOB LMP 02/04April 07, 2025 8:32a m 13WK OB *doc only May 05, 2025 8:46 am 17wk ob *doc only June 04, 2025 10:1 3am 19wk ob BP check *per SM June 18, 2025 8:31am 21wk ob *doc only July 03, 2025 9: 36am Reason for Visit Admit Date History of delivery, currently April 07, 2025 8:32am History of gestational hypertension April 07, 2025 8:32am History of miscarriage, currently pregna nt April 07, 2025 8:32am History of pre-eclampsia in prior , currently April 07, 2025 8:32am Hx of delivery, currently pregna nt April 07, 2025 8:32am Obesity affecting April 07 8:32am April 07, 2025 8:32a m Supervision of high-risk March 202024 8:32am GBS (group B streptococcus) UTI complica ting May 05, 2025 8:46am History of delivery, currently May 05, 2025 8:46am History of gestational hypertension May 05, 2025 8:46am History of miscarriage, currently pregna nt May 05, 2025 8:46am History of pre-eclampsia in prior , currently May 05, 2025 8:46am Hx of delivery, currently pregna nt May 05, 2025 8:46am Obesity affecting May 05 8:46am May 05, 2025 8:46 am Supervision of high-risk May 05, 2025 8:46am GBS (group B streptococcus) UTI complica ting June 04, 2025 10:13am History of delivery, currently June 04, 2025 10:13am History of gestational hypertension June 04, 2025 10:13am History of miscarriage, currently pregna nt June 04, 2025 10:13am History of pre-eclampsia in prior , currently June 04, 2025 10:13am Hx of delivery, currently pregna nt June 04, 2025 10:13am Obesity affecting June 04 10:13am June 04, 2025 10:1 3am Supervision of high-risk June 04, 2025 10:13am GBS (group B streptococcus) UTI complica ting June 18, 2025 8:31am History of delivery, currently June 18, 2025 8:31am History of gestational hypertension June 18, 2025 8:31am History of miscarriage, currently pregna nt June 18, 2025 8:31am History of pre-eclampsia in prior , currently June 18, 2025 8:31am Hx of delivery, currently pregna nt June 18, 2025 8:31am Obesity affecting June 18 8:31am June 18, 2025 8:31 am Supervision of high-risk June 18, 2025 8:31am GBS (group B streptococcus) UTI complica ting July 03, 2025 9:36am History of delivery, currently July 03, 2025 9:36am History of gestational hypertension Augu st 2024 9:36am History of miscarriage, currently pregna nt July 03, 2025 9:36am History of pre-eclampsia in prior , currently July 03, 2025 9:36am Hx of delivery, currently pregna nt July 03, 2025 9:36am Obesity affecting July 03, 2025 9:36am July 03, 2025 9: 36am Supervision of high-risk Augus t 2024 9:36am Chief Complaint Admit Date NOB LMP 02/04April 07, 2025 8:32a m 13WK OB *doc only May 05, 2025 8:46 am 17wk ob *doc only June 04, 2025 10:1 3am 19wk ob BP check *per SM June 18, 2025 8:31am 21wk ob *doc only July 03, 2025 9: 36am 25wk ob *doc only July 29, 2025 9:36am Reason for Visit Admit Date History of delivery, currently April 07, 2025 8:32am History of gestational hypertension April 07, 2025 8:32am History of miscarriage, currently pregna nt April 07, 2025 8:32am History of pre-eclampsia in prior , currently April 07, 2025 8:32am Hx of delivery, currently pregna nt April 07, 2025 8:32am Obesity affecting April 07 8:32am April 07, 2025 8:32a m Supervision of high-risk March 202024 8:32am GBS (group B streptococcus) UTI complica ting May 05, 2025 8:46am History of delivery, currently May 05, 2025 8:46am History of gestational hypertension May 05, 2025 8:46am History of miscarriage, currently pregna nt May 05, 2025 8:46am History of pre-eclampsia in prior , currently May 05, 2025 8:46am Hx of delivery, currently pregna nt May 05, 2025 8:46am Obesity affecting May 05 025 8:46am May 05, 2025 8:46 am Supervision of high-risk May 05, 2025 8:46am GBS (group B streptococcus) UTI complica ting June 04, 2025 10:13am History of delivery, currently June 04, 2025 10:13am History of gestational hypertension June 04, 2025 10:13am History of miscarriage, currently pregna nt June 04, 2025 10:13am History of pre-eclampsia in prior , currently June 04, 2025 10:13am Hx of delivery, currently pregna nt June 04, 2025 10:13am Obesity affecting June 04 10:13am June 04, 2025 10:1 3am Supervision of high-risk June 04, 2025 10:13am GBS (group B streptococcus) UTI complica ting June 18, 2025 8:31am History of delivery, currently June 18, 2025 8:31am History of gestational hypertension June 18, 2025 8:31am History of miscarriage, currently pregna nt June 18, 2025 8:31am History of pre-eclampsia in prior , currently June 18, 2025 8:31am Hx of delivery, currently pregna nt June 18, 2025 8:31am Obesity affecting June 18 8:31am June 18, 2025 8:31 am Supervision of high-risk June 18, 2025 8:31am GBS (group B streptococcus) UTI complica ting July 03, 2025 9:36am History of delivery, currently July 03, 2025 9:36am History of gestational hypertension Augu st 2024 9:36am History of miscarriage, currently pregna nt July 03, 2025 9:36am History of pre-eclampsia in prior , currently July 03, 2025 9:36am Hx of delivery, currently pregna nt July 03, 2025 9:36am Obesity affecting July 03, 2025 9:36am July 03, 2025 9: 36am Supervision of high-risk Augus t 2024 9:36am GBS (group B streptococcus) UTI complica ting July 29, 2025 9:36am History of delivery, currently July 29, 2025 9:36am History of gestational hypertension Sept ember 2024 9:36am History of miscarriage, currently pregna nt July 29, 2025 9:36am History of pre-eclampsia in prior , currently July 29, 2025 9:36am Hx of delivery, currently pregna nt July 29, 2025 9:36am Obesity affecting July 9:36am July 29, 2025 9:36am [facility] Chief Complaint Admit Date 13WK OB *doc only May 05, 2025 8:46 am 17wk ob *doc only June 04, 2025 10:1 3am 19wk ob BP check *per SM June 18, 2025 8:31am 21wk ob *doc only July 03, 2025 9: 36am 25wk ob *doc only July 29, 2025 9:36am 28 wk ob/ glucose *doc only August 21, 2025 1:56pm Reason for Visit Admit Date GBS (group B streptococcus) UTI complica ting May 05, 2025 8:46am History of delivery, currently May 05, 2025 8:46am History of gestational hypertension May 05, 2025 8:46am History of miscarriage, currently pregna nt May 05, 2025 8:46am History of pre-eclampsia in prior , currently May 05, 2025 8:46am Hx of delivery, currently pregna nt May 05, 2025 8:46am Obesity affecting May 05, 025 8:46am May 05, 2025 8:46 am Supervision of high-risk May 05, 2025 8:46am GBS (group B streptococcus) UTI complica ting June 04, 2025 10:13am History of delivery, currently June 04, 2025 10:13am History of gestational hypertension June 04, 2025 10:13am History of miscarriage, currently pregna nt June 04, 2025 10:13am History of pre-eclampsia in prior , currently June 04, 2025 10:13am Hx of delivery, currently pregna nt June 04, 2025 10:13am Obesity affecting June 04, 025 10:13am June 04, 2025 10:1 3am Supervision of high-risk June 04, 2025 10:13am GBS (group B streptococcus) UTI complica ting June 18, 2025 8:31am History of delivery, currently June 18, 2025 8:31am History of gestational hypertension June 18, 2025 8:31am History of miscarriage, currently pregna nt June 18, 2025 8:31am History of pre-eclampsia in prior , currently June 18, 2025 8:31am Hx of delivery, currently pregna nt June 18, 2025 8:31am Obesity affecting June 18 8:31am June 18, 2025 8:31 am Supervision of high-risk June 18, 2025 8:31am GBS (group B streptococcus) UTI complica ting July 03, 2025 9:36am History of delivery, currently July 03, 2025 9:36am History of gestational hypertension Augu st 2024 9:36am History of miscarriage, currently pregna nt July 03, 2025 9:36am History of pre-eclampsia in prior , currently July 03, 2025 9:36am Hx of delivery, currently pregna nt July 03, 2025 9:36am Obesity affecting July 03, 2025 9:36am July 03, 2025 9: 36am Supervision of high-risk Augus t 2024 9:36am GBS (group B streptococcus) UTI complica ting July 29, 2025 9:36am History of delivery, currently July 29, 2025 9:36am History of gestational hypertension Sept ember 2024 9:36am History of miscarriage, currently pregna nt July 29, 2025 9:36am History of pre-eclampsia in prior , currently July 29, 2025 9:36am Hx of delivery, currently pregna nt July 29, 2025 9:36am Obesity affecting July 9:36am July 29, 2025 9:36am Supervision of high-risk Septe mber 2024 9:36am GBS (group B streptococcus) UTI complica ting August 21, 2025 1:56pm History of delivery, currently August 21, 2025 1:56pm History of gestational hypertension Octo mitch 2024 1:56pm History of miscarriage, currently pregna nt August 21, 2025 1:56pm History of pre-eclampsia in prior , currently August 21, 2025 1:56pm Hx of delivery, currently pregna nt August 21, 2025 1:56pm Obesity affecting August 21, 2025 1:56pm August 21, 2025 1: 56pm Supervision of high-risk Octob 2024 1:56pm Chief Complaint Admit Date 17wk ob *doc only June 04, 2025 10:1 3am 19wk ob BP check *per SM June 18, 2025 8:31am 21wk ob *doc only July 03, 2025 9: 36am 25wk ob *doc only July 29, 2025 9:36am 28 wk ob/ glucose *doc only August 21, 2025 1:56pm 30 wk ob *doc only September 05, 2025 8 :47am Reason for Visit Admit Date GBS (group B streptococcus) UTI complica ting June 04, 2025 10:13am History of delivery, currently June 04, 2025 10:13am History of gestational hypertension June 04, 2025 10:13am History of miscarriage, currently pregna nt June 04, 2025 10:13am History of pre-eclampsia in prior , currently June 04, 2025 10:13am Hx of delivery, currently pregna nt June 04, 2025 10:13am Obesity affecting June 04, 025 10:13am June 04, 2025 10:1 3am Supervision of high-risk June 04, 2025 10:13am GBS (group B streptococcus) UTI complica ting June 18, 2025 8:31am History of delivery, currently June 18, 2025 8:31am History of gestational hypertension June 18, 2025 8:31am History of miscarriage, currently pregna nt June 18, 2025 8:31am History of pre-eclampsia in prior , currently June 18, 2025 8:31am Hx of delivery, currently pregna nt June 18, 2025 8:31am Obesity affecting June 18, 025 8:31am June 18, 2025 8:31 am Supervision of high-risk June 18, 2025 8:31am GBS (group B streptococcus) UTI complica ting July 03, 2025 9:36am History of delivery, currently July 03, 2025 9:36am History of gestational hypertension Augu st 2024 9:36am History of miscarriage, currently pregna nt July 03, 2025 9:36am History of pre-eclampsia in prior , currently July 03, 2025 9:36am Hx of delivery, currently pregna nt July 03, 2025 9:36am Obesity affecting July 03, 2025 9:36am July 03, 2025 9: 36am Supervision of high-risk Augus t 2024 9:36am GBS (group B streptococcus) UTI complica ting July 29, 2025 9:36am History of delivery, currently July 29, 2025 9:36am History of gestational hypertension Sept ember 2024 9:36am History of miscarriage, currently pregna nt July 29, 2025 9:36am History of pre-eclampsia in prior , currently July 29, 2025 9:36am Hx of delivery, currently pregna nt July 29, 2025 9:36am Obesity affecting July 9:36am July 29, 2025 9:36am Supervision of high-risk Septe mb2024 9:36am GBS (group B streptococcus) UTI complica ting August 21, 2025 1:56pm History of delivery, currently August 21, 2025 1:56pm History of gestational hypertension Octo 2024 1:56pm History of miscarriage, currently pregna August 21, 2025 1:56pm History of pre-eclampsia in prior , currently August 21, 2025 1:56pm Hx of delivery, currently pregna nt August 21, 2025 1:56pm Obesity affecting August 21, 2025 1:56pm August 21, 2025 1: 56pm Supervision of high-risk Octob er 2024 1:56pm GBS (group B streptococcus) UTI complica ting September 05, 2025 8:47am History of delivery, currently September 05, 2025 8:47am History of gestational hypertension Octo mitch 2024 8:47am History of miscarriage, currently pregna nt September 05, 2025 8:47am History of pre-eclampsia in prior , currently September 05, 2025 8:47am Hx of delivery, currently pregna nt September 05, 2025 8:47am Obesity affecting August 8:47am September 05, 2025 8 :47am Supervision of high-risk Octob er 2024 8:47am Reason for Referral Specialty Diagnoses / Procedures Referred By Contac t Referred To Contact Diagnoses Dizziness Procedures ECG 12 Lead Griselda Linton, 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 [address] [place] [id number] Referral ID Status Reason Start Date Expiration Date V isits Requested Visits Authorized [id number] Pending Review 09/14/2023 09/13/2024 1 1 Additional Source Comments INFORMATION SOURCE (unrecogn ized section and content) DATE CREATED AUTHOR 05/16/2018 [facility] DATE CREATED AUTHOR AUTHOR'S ORGANIZ ATION 06/08/2019 [facility] DATE CREATED AUTHOR AUTHOR'S ORGANIZ ATION 02/22/2021 [email or web address] DATE CREATED AUTHOR AUTHOR'S ORGANIZ ATION 12/25/2021 [facility] DATE CREATED AUTHOR AUTHOR'S ORGANIZ ATION 11/10/2022 [facility] DATE CREATED AUTHOR AUTHOR'S ORGANIZ ATION 11/22/2022 [facility] DATE CREATED AUTHOR AUTHOR'S ORGANIZ ATION 03/11/2023 [facility] DATE CREATED AUTHOR AUTHOR'S ORGANIZ ATION [facility] DATE CREATED AUTHOR AUTHOR'S ORGANIZ ATION 05/20/2024 [facility] DATE CREATED AUTHOR AUTHOR'S ORGANIZ ATION 01/27/2025 [facility] DATE CREATED AUTHOR AUTHOR'S ORGANIZ ATION 01/27/2025 [facility] DATE CREATED AUTHOR AUTHOR'S ORGANIZ ATION 06/22/2025 [facility] DATE CREATED AUTHOR AUTHOR'S ORGANIZ ATION 10/01/2025 [facility] <item><item> Privacy Markings (unrecogniz ed section and content) Section Author: Lori Jones PROHIBITION ON REDISCLOSURE OF CONFIDENTIAL INFORMATION This notice accompanies a disclosure of information concerning a client made to you with the consent of such client. Section Author: Lori Jones PROHIBITION ON REDISCLOSURE OF CONFIDENTIAL INFORMATION This notice accompanies a disclosure of information concerning a client made to you with the consent of such client. Goals (unrecognized section and content) Type Care Experience Desires TOLACpatient counseled regarding risks/benefits of trial of labor versus repeat . ACOG/uptodate education given to patient. 69 % likelihood of success per calculatorTOLAC consent form signed: 12/10Labor Preferences-CB/BF classes: nolabor support person: TJlabor intervention preferences: pain management options preferred: epiduralcut cord/dad catch: yesbreastfeeding: yesPP control planned: OCPdiscussed possible routes of delivery and associated risks: discussed possible delivery modalities and possible indications for each including R/B/A of , VAVD, FAVD, and CS. questions answered.special requests: [] Care Experience patient counseled re garding risks/benefits of trial of labor versus repeat . ACOG/uptodate education given to patient. She wishes to be educated more and think about a after 2 sections. 50/7% % likelihood of success per calculatorTOLAC consent form signed: []1 Care Experience repeat C/S with SM c onsidenrg BS Care Teams (unrecognized sec tion and content) Team Status: Active Member Role Status Dates No Primary Care Physician Primary Care Provider Active Team Status: Inactive Member Role Status Dates No Primary Care Physician Primary Care Provider, Refer ring Provider Active Dr. Flores Vasquez DO Attending Provider Activ e Team Status: Inactive Member Role Status Dates No Primary Care Physician Primary Care Provider, Refer ring Provider Active Anahi Yuan CONTOUR STITCHER, CONTOUR STITCHER-C Attending Provider Active Team Status: Active Member Role Status Dates No Primary Care Physician Primary Care Provider Active Dr. Angelia Colindres MD Other Provider Active Enid Reyez CNM Attending Provider Active Team Status: Inactive Member Role Status Dates No Primary Care Physician Primary Care Provider Active Dr. Angelia Colindres MD Attending Provider, Referr ing Provider Active Team Status: Inactive Member Role Status Dates No Primary Care Physician Primary Care Provider Active Dr. Flores Vasquez DO Attending Provider Activ e Team Status: Inactive Member Role Status Dates No Primary Care Physician Primary Care Provider Active Dr. Angelia Colindres MD Attending Provider Active Team Status: Active Member Role Status Dates No Primary Care Physician Primary Care Provider Active Dr. Angelia Colindres MD Referring Provider, Other Provider Active Enid Reyez CNM Attending Provider Active Team Status: Inactive Member Role Status Dates No Primary Care Physician Primary Care Provider, Refer ring Provider Active Enid Reyez CNM Attending Provider Active Team Status: Inactive Member Role Status Dates No Primary Care Physician Primary Care Provider Active Enid Reyez CNM Attending Provider, Referring Pro vider Active Team Status: Inactive Member Role Status Dates No Primary Care Physician Primary Care Provider, Refer ring Provider Active Dr. Angelia Colindres MD Attending Provider Active Team Status: Active Member Role Status Dates No Primary Care Physician Primary Care Provider Active Enid Reyez CNM Attending Provider, Referring Provider, Other Provider Active Team Status: Active Member Role Status Dates No Primary Care Physician Primary Care Provider Active Aanhi Yuan CONTOUR STITCHER, CONTOUR STITCHER-C Attending Provider, Referring Provider Active Team Status: Active Member Role Status Dates No Primary Care Physician Primary Care Provider Active Dr. Angelia Colindres MD Attending Provider Active Team Status: Inactive Member Role Status Dates No Primary Care Physician Primary Care Provider Active Dr. Flores Vasquez DO Attending Provider, Refe rring Provider Active Team Status: Inactive Member Role Status Dates No Primary Care Physician Primary Care Provider Active Anahi Yuan CONTOUR STITCHER, CONTOUR STITCHER-C Attending Provider, Referring Provider Active Team Status: Active Member Role Status Dates No Primary Care Physician Primary Care Provider Active Dr. Angelia Colindres MD Attending Provider, Referr ing Provider Active Team Status: Active Member Role Status Dates No Primary Care Physician Primary Care Provider Active Laurence Erazo CNM Attending Provider , Referring Provider, Other Provider Active Team Status: Inactive Member Role Status Dates No Primary Care Physician Primary Care Provider Active Anahi Yuan CONTOUR STITCHER, CONTOUR STITCHER-C Other Provider Active Dr. Angelia Colindres MD Attending Provider, Referr ing Provider Active Team Status: Inactive Member Role Status Dates No Primary Care Physician Primary Care Provider Active Laurence Erazo CNM Attending Provider, Referring Pr ovider Active Team Status: Active Member Role Status Dates No Primary Care Physician Primary Care Provider Active Patient Link Program Attending Provider, Referring Pro vider Active Team Status: Active Member Role Status Dates No Primary Care Physician Primary Care Provider Active Dr. Flores Vasquez DO Attending Provider, Referring Provider, Other Provider Active Team Status: Active Member Role Status Dates No Primary Care Physician Primary Care Provider Active Dr. Angelia Colindres MD Admit Provid er, Attending Provider, Other Provider Active Team Status: Active Member Role Status Dates No Primary Care Physician Primary Care Provider Active Dr. Angelia Colindres MD Admit Provider, Other Prov ider Active Dr. Flores Vasquez DO Attending Provider Activ e Team Status: Inactive Member Role Status Dates No Primary Care Physician Primary Care Provider Active Dr. Angelia Colindres MD Admit Provider, Attending Provider Active Team Status: Inactive Member Role Status Dates No Primary Care Physician Primary Care Provider Active Anahi Yuan CONTOUR STITCHER, CONTOUR STITCHER-C Attending Provider, Referring Provider Active Dr. 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 Relationship Specialty Start Date End Date Griselda Linton, 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 [address] [place] [address] PCP - General Internal Medicine 09/08/23 Griselda Linton, 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 [address] [facility] [place] [address] PCP - MMO ACO PCP 10/20/23 Police 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 Relationship Specialty Start Date End Date Griselda Linton, 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 [address] [place] [address] PCP - General Internal Medicine 09/08/23 Griselda Linton, 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 [address] [place] [address] PCP - MMO ACO PCP 10/20/23 Team Status: Active Member Role Status Dates Griselda Linton CONTOUR STITCHER-C Primary Care Provider Active Team Status: Active Member Role Status Dates Griselda Linton NP-C Primary Care Provider Active Start: March 28, 2025 Gina Staley , RN Attending Provider Active St art: March 28, 2025 Team Status: Inactive Member Role Status Dates Griselda Linton CONTOUR STITCHER-C Primary Care Provider Active Start: April 07, 2025 End: April 07, 2025 Griselda Linton NP-C Referring Provider Active St art: April 07, 2025 End: April 07, 2025 Enid Reyez CNM Attending Provider Active S tart: April 07, 2025 End: April 07, 2025 Team Status: Active Member Role Status Dates Griselda Linton CONTOUR STITCHER-C Primary Care Provider Active Start: April 07, 2025 Enid Reyez CNM Attending Provider Active S tart: April 07, 2025 Enid Reyez CNM Referring Provider Active S tart: April 07, 2025 Team Status: Inactive Member Role Status Dates Griselda Linton CONTOUR STITCHER-C Primary Care Provider Active Start: April 07, 2025 End: April 07, 2025 Enid Reyez CNM Attending Provider Active S tart: April 07, 2025 End: April 07, 2025 Enid Reyez CNM Referring Provider Active S tart: April 07, 2025 End: April 07, 2025 Team Status: Inactive Member Role Status Dates Griselda Linton CONTOUR STITCHER-C Primary Care Provider Active Start: May 05, 2025 End: May 05, 2025 Griselda Linton CONTOUR STITCHER-C Referring Provider Active St art: May 05, 2025 End: May 05, 2025 Dr. Angelia Colindres MD Attending Provider Active Start: May 05, 2025 End: May 05, 2025 Team Status: Active Member Role/Relationship Status Dates Griselda Linton , CONTOUR STITCHER-C Primary Care Provider Active Team Status: Active Member Role/Relationship Status Dates Griselda Linton CONTOUR STITCHER-C Primary Care Provider Active Start: March 28, 2025 Gina Staley RN Attending Provider Active St art: March 28, 2025 Team Status: Inactive Member Role/Relationship Status Dates Griselda Linton CONTOUR STITCHER-C Primary Care Provider Active Start: April 07, 2025 End: April 07, 2025 Griselda Linton CONTOUR STITCHER-C Referring Provider Active St art: April 07, 2025 End: April 07, 2025 Enid Reyez CNM Attending Provider Active S tart: April 07, 2025 End: April 07, 2025 Team Status: Inactive Member Role/Relationship Status Dates Griselda Linton CONTOUR STITCHER-C Primary Care Provider Active Start: April 07, 2025 End: April 07, 2025 Enid Reyez CNM Attending Provider Active S tart: April 07, 2025 End: April 07, 2025 Enid Reyez CNM Referring Provider Active S tart: April 07, 2025 End: April 07, 2025 Team Status: Inactive Member Role/Relationship Status Dates Griselda Linton , CONTOUR STITCHER-C Primary Care Provider Active Start: May 05, 2025 End: May 05, 2025 Griselda Linton , CONTOUR STITCHER-C Referring Provider Active St art: May 05, 2025 End: May 05, 2025 Dr. Angelia Colindres MD Attending Provider Active Start: May 05, 2025 End: May 05, 2025 Team Status: Inactive Member Role/Relationship Status Dates Griselda Opal Linton , CONTOUR STITCHER-C Primary Care Provider Active Start: June 04, 2025 End: June 04, 2025 Griselda Linton , CONTOUR STITCHER-C Referring Provider Active St art: June 04, 2025 End: June 04, 2025 Dr. Angelia Colindres MD Attending Provider Active Start: June 04, 2025 End: June 04, 2025 Team Status: Inactive Member Role/Relationship Status Dates Griselda Opal Linton , CONTOUR STITCHER-C Primary Care Provider Active Start: June 18, 2025 End: June 18, 2025 Griselda Opal Linton , CONTOUR STITCHER-C Referring Provider Active St art: June 18, 2025 End: June 18, 2025 Dr. Flores Vasquez DO Attending Provider Activ e Start: June 18, 2025 End: June 18, 2025 Team Status: Active Member Role/Relationship Status Dates Griselda Opal Linton , CONTOUR STITCHER-C Primary Care Provider Active Start: June 18, 2025 Dr. Flores Vasquez DO Attending Provider Activ e Start: June 18, 2025 Team Status: Inactive Member Role/Relationship Status Dates Griselda D August , CONTOUR STITCHER-C Primary Care Provider Active Start: July 03, 2025 End: July 03, 2025 Griselda Opal Linton , CONTOUR STITCHER-C Referring Provider Active St art: July 03, 2025 End: July 03, 2025 Dr. Angelia Colindres MD Attending Provider Active Start: July 03, 2025 End: July 03, 2025 Team Status: Inactive Member Role/Relationship Status Dates Griselda Linton , CONTOUR STITCHER-C Primary Care Provider Active Start: June 18, 2025 End: June 18, 2025 Dr. Flores Vasquez DO Attending Provider Activ e Start: June 18, 2025 End: June 18, 2025 Team Status: Inactive Member Role/Relationship Status Dates Griselda Opal Linton , CONTOUR STITCHER-C Primary Care Provider Active Start: April 07, 2025 End: April 07, 2025 Griselda Linton , CONTOUR STITCHER-C Referring Provider Active St art: April 07, 2025 End: April 07, 2025 Enid Reyez CNM Attending Provider Active S tart: April 07, 2025 End: April 07, 2025 Team Status: Inactive Member Role/Relationship Status Dates Griselda Opal Linton , CONTOUR STITCHER-C Primary Care Provider Active Start: April 07, 2025 End: April 07, 2025 Enid Reyez CNM Attending Provider Active S tart: April 07, 2025 End: April 07, 2025 Enid Reyez CNM Referring Provider Active S tart: April 07, 2025 End: April 07, 2025 Team Status: Inactive Member Role/Relationship Status Dates Griselda Opal Linton , CONTOUR STITCHER-C Primary Care Provider Active Start: May 05, 2025 End: May 05, 2025 Griselda Opal Linton , CONTOUR STITCHER-C Referring Provider Active St art: May 05, 2025 End: May 05, 2025 Dr. Angelia Colindres MD Attending Provider Active Start: May 05, 2025 End: May 05, 2025 Team Status: Inactive Member Role/Relationship Status Dates Griselda Opal Linton , CONTOUR STITCHER-C Primary Care Provider Active Start: June 04, 2025 End: June 04, 2025 Griselda Opal Linton , CONTOUR STITCHER-C Referring Provider Active St art: June 04, 2025 End: June 04, 2025 Dr. Angelia Colindres MD Attending Provider Active Start: June 04, 2025 End: June 04, 2025 Team Status: Inactive Member Role/Relationship Status Dates Griselda D Linton , CONTOUR STITCHER-C Primary Care Provider Active Start: June 18, 2025 End: June 18, 2025 Griselda Opal Linton , CONTOUR STITCHER-C Referring Provider Active St art: June 18, 2025 End: June 18, 2025 Dr. Flores Vasquez DO Attending Provider Activ e Start: June 18, 2025 End: June 18, 2025 Team Status: Inactive Member Role/Relationship Status Dates Griselda Opal Linton , CONTOUR STITCHER-C Primary Care Provider Active Start: June 18, 2025 End: June 18, 2025 Dr. Flores Vasquez DO Attending Provider Activ e Start: June 18, 2025 End: June 18, 2025 Team Status: Inactive Member Role/Relationship Status Dates Griselda Opal Linton , CONTOUR STITCHER-C Primary Care Provider Active Start: July 03, 2025 End: July 03, 2025 Griselda Opal Linton , CONTOUR STITCHER-C Referring Provider Active St art: July 03, 2025 End: July 03, 2025 Dr. Angelia Colindres MD Attending Provider Active Start: July 03, 2025 End: July 03, 2025 Team Status: Inactive Member Role/Relationship Status Dates Griselda Opal Linton , CONTOUR STITCHER-C Primary Care Provider Active Start: July 29, 2025 End: July 29, 2025 Griselda Opal Linton , CONTOUR STITCHER-C Referring Provider Active St art: July 29, 2025 End: July 29, 2025 Dr. Angelia Colindres MD Attending Provider Active Start: July 29, 2025 End: July 29, 2025 Team Status: Active Member Role/Relationship Status Dates Griselda Opal Linton , CONTOUR STITCHER-C Primary care physician Active Team Status: Inactive Member Role/Relationship Status Dates Griselda Linton , CONTOUR STITCHER-C Primary care physician Active Start: May 05, 2025 End: May 05, 2025 Griselda Opal Linton , CONTOUR STITCHER-C Referring Provider Active St art: May 05, 2025 End: May 05, 2025 Dr. Angelia Colindres MD Attending physician Active Start: May 05, 2025 End: May 05, 2025 Team Status: Inactive Member Role/Relationship Status Dates Griselda Linton , CONTOUR STITCHER-C Primary care physician Active Start: June 04, 2025 End: June 04, 2025 Griselda Opal Linton , CONTOUR STITCHER-C Referring Provider Active St art: June 04, 2025 End: June 04, 2025 Dr. Angelia Colindres MD Attending physician Active Start: June 04, 2025 End: June 04, 2025 Team Status: Inactive Member Role/Relationship Status Dates Griselda Tierneyley , CONTOUR STITCHER-C Primary care physician Active Start: June 18, 2025 End: June 18, 2025 Griselda Opal Linton , CONTOUR STITCHER-C Referring Provider Active St art: June 18, 2025 End: June 18, 2025 Dr. Flores Vasquez DO Attending physician Acti ve Start: June 18, 2025 End: June 18, 2025 Team Status: Inactive Member Role/Relationship Status Dates Griselda Opal Linton , CONTOUR STITCHER-C Primary care physician Active Start: June 18, 2025 End: June 18, 2025 Dr. Flores Vasquez DO Attending physician Acti ve Start: June 18, 2025 End: June 18, 2025 Team Status: Inactive Member Role/Relationship Status Dates Griselda Opal Linton , CONTOUR STITCHER-C Primary care physician Active Start: July 03, 2025 End: July 03, 2025 Griselda Opal Linton , CONTOUR STITCHER-C Referring Provider Active St art: July 03, 2025 End: July 03, 2025 Dr. Angelia Colindres MD Attending physician Active Start: July 03, 2025 End: July 03, 2025 Team Status: Inactive Member Role/Relationship Status Dates Griselda Opal Linton , CONTOUR STITCHER-C Primary care physician Active Start: July 29, 2025 End: July 29, 2025 Griselda Opal Linton , CONTOUR STITCHER-C Referring Provider Active St art: July 29, 2025 End: July 29, 2025 Dr. Angelia Colindres MD Attending physician Active Start: July 29, 2025 End: July 29, 2025 Team Status: Inactive Member Role/Relationship Status Dates Griselda D August , CONTOUR STITCHER-C Primary care physician Active Start: August 21, 2025 End: August 21, 2025 Griselda D August , CONTOUR STITCHER-C Referring Provider Active St art: August 21, 2025 End: August 21, 2025 Dr. Angelia Colindres MD Attending physician Active Start: August 21, 2025 End: August 21, 2025 Team Status: Active Member Role/Relationship Status Dates Griselda Linton , CONTOUR STITCHER-C Primary care physician Active Start: August 21, 2025 Dr. Angelia Colindres MD Attending physician Active Start: August 21, 2025 Dr. Angelia Colindres MD Referring Provider Active Start: August 21, 2025 Team Status: Inactive Member Role/Relationship Status Dates Griselda Linton , CONTOUR STITCHER-C Primary care physician Active Start: June 04, 2025 End: June 04, 2025 Griselda Linton , CONTOUR STITCHER-C Referring Provider Active St art: June 04, 2025 End: June 04, 2025 Dr. Angelia Colindres MD Attending physician Active Start: June 04, 2025 End: June 04, 2025 Team Status: Inactive Member Role/Relationship Status Dates Griselda Opal Linton , CONTOUR STITCHER-C Primary care physician Active Start: June 18, 2025 End: June 18, 2025 Griselda Opal Linton , CONTOUR STITCHER-C Referring Provider Active St art: June 18, 2025 End: June 18, 2025 Dr. Flores Vasquez DO Attending physician Acti ve Start: June 18, 2025 End: June 18, 2025 Team Status: Inactive Member Role/Relationship Status Dates Griselda Linton , CONTOUR STITCHER-C Primary care physician Active Start: June 18, 2025 End: June 18, 2025 Dr. Flores Vasquez DO Attending physician Acti ve Start: June 18, 2025 End: June 18, 2025 Team Status: Inactive Member Role/Relationship Status Dates Griselda Opal Linton , CONTOUR STITCHER-C Primary care physician Active Start: July 03, 2025 End: July 03, 2025 Griselda Opal Linton , CONTOUR STITCHER-C Referring Provider Active St art: July 03, 2025 End: July 03, 2025 Dr. Angelia Colindres MD Attending physician Active Start: July 03, 2025 End: July 03, 2025 Team Status: Inactive Member Role/Relationship Status Dates Griselda D August , CONTOUR STITCHER-C Primary care physician Active Start: July 29, 2025 End: July 29, 2025 Griselda Opal Linton , CONTOUR STITCHER-C Referring Provider Active St art: July 29, 2025 End: July 29, 2025 Dr. Angelia Colindres MD Attending physician Active Start: July 29, 2025 End: July 29, 2025 Team Status: Inactive Member Role/Relationship Status Dates Griselda Opal Linton , CONTOUR STITCHER-C Primary care physician Active Start: August 21, 2025 End: August 21, 2025 Griselda D Linton , CONTOUR STITCHER-C Referring Provider Active St art: August 21, 2025 End: August 21, 2025 Dr. Angelia Colindres MD Attending physician Active Start: August 21, 2025 End: August 21, 2025 Team Status: Inactive Member Role/Relationship Status Dates Griselda Linton NP-C Primary care physician Active Start: August 21, 2025 End: August 21, 2025 Dr. Angelia Colindres MD Attending physician Active Start: August 21, 2025 End: August 21, 2025 Dr. Angelia Colindres MD Referring Provider Active Start: August 21, 2025 End: August 21, 2025 Team Status: Inactive Member Role/Relationship Status Dates Griselda Linton NP-C Primary care physician Active Start: September 05, 2025 End: September 05, 2025 Griselda Linton NP-C Referring Provider Active St art: September 05, 2025 End: September 05, 2025 Dr. Angelia Colindres MD Attending physician Active Start: September 05, 2025 End: September 05, 2025 Team Status: Inactive Member Role/Relationship Status Dates Griselda Linton NP-C Primary care physician Active Start: September 05, 2025 End: September 05, 2025 Dr. Angelia Colindres MD Attending physician Active Start: September 05, 2025 End: September 05, 2025 Dr. Angelia Colindres MD Referring Provider Active Start: September 05, 2025 End: September 05, 2025 Reason for Visit (unrecogniz ed section and content) Reason Comments Anemia Pt states she was di agnosed 4 months ago Anxiety Pt states her anxiet y has increased within the last 4 months Specialty Diagnoses / Procedures Referred By Ayan t Referred To Contact Diagnoses Dizziness Procedures ECG 12 Lead Griselda Linton, 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 [address] [place] [address] Referral ID Status Reason Start Date Expiration Date V isits Requested Visits Authorized [id number] Pending Review 09/14/2023 09/13/2024 1 1 Reason Comments Nasal Congestion Pt c/o body aches an d r ear ache x 2 days Reason Comments Follow-up 6 months. Pt did not complete labs at this time, no concerns Reason Comments Cough fatigue R ear pain Feels clogged x 1 we ek FOR RECORDS PERTAINING TO PATIENTS WHO ARE OR HAVE BEEN ENROLLED IN A CHEMICAL DEPENDENCY/SUBSTANCEABUSE PROGRAM, SOME INFORMATION MAY BE OMITTED. This clinical summary was aggregated from multiple sources. Caution should be exercised in using it in the provision of clinical care. This summary normalizes information from multiple sources, and as a consequence, information in this document may materially change the coding, format and clinical context of patient data. In addition, data may be omitted in some cases. CLINICAL DECISIONS SHOULD BE BASED ON THE PRIMARY CLINICAL RECORDS. [facility] [employer] [facility]. provides no warranty or guarantee of the accuracy or completeness of information in this document.
[2025-10-12 14:02] LABS: Hematocrit 38.0 % (37-47); Hemoglobin 12.5 g/dL (12.0-15.0); Mean Corp Hgb Conc 32.9 g/dL (32-36); Mean Corpuscular Volume 83.9 fL (81-99); Mean Platelet Vol. 11.0 fl (6.2-12.0); Platelet Count 166 K/mm3 (150-450); RBC Distribution Width CV 13.5 % (11.6-14.6); RBC Distribution Width SD 41.3 fl (35.1-43.9); Red Blood Count 4.53 M/mm3 (4.2-5.4); White Blood Count 13.3 K/mm3 (4.4-11.0)
[2025-10-12 14:31] LABS: Creatinine, Urine (random) 35.70 mg/dL (28.00-217.00); Protein, Urine (Random) 7.3 mg/dL (0.0-12.0); Protein:Creat Ratio 206 mg/g CRE (0-200)
[2025-10-12 14:33] LABS: AST(SGOT) 21 U/L (<=31); Alanine Aminotransfer ALT/SGPT 19 U/L (<=34); Estimated Creatinine Clearance 186.49 ml/min (50-250); Uric Acid 4.1 mg/dL (2.6-6.0)
--- NOTE | 2025-10-27 15:08 | OB.TRI.NOTE ---
HPI - General General Date of Admission: 10/12/25 HPI Narrative CELIA MILLER, is a 30 F who presents at 35 weeks gestation with some elevated blood pressures at home and a continued headache. Headache has been present for 3 to 4 weeks and is unchanged. Tylenol has not seemed to help. She denies any other PIH symptoms. She received steroids for lung maturation a couple weeks ago. On labor and delivery PIH labs were repeated and were normal. Blood pressures almost immediately normalized. She continued to have a headache as she has had for several weeks. It was not changed in character or location. [facility] Medical History Mastitis associated with Anxiety Pre-eclampsia History of premature rupture of membranes (PPROM) History of pre-term labor Seasonal allergies History of miscarriage Anxiety Home Medications ?Medication ?Instructions ?Recorded ?Last Taken ?Type docosahexaenoic acid 200 mg 1 mg PO DAILY 03/28/25 Unknown History capsule ( DHA) nifedipine 30 mg tablet,extended 30 mg PO QDAY 10/21/25 Unknown History release 24 hr dicloxacillin 500 mg capsule 500 mg PO Q6H Mastitis #56 caps 10/23/25 Unknown Rx Allergy/AdvReac Type Severity Reaction Status Date / Time No Known Allergies Allergy Verified 10/27/25 13:50 Surgical History Status post bilateral salpingectomy Hx of wisdom tooth extraction S/P H/O dilation and curettage Social History adopted: No household members: spouse and children housing: house number of children: 3 current occupational status: employed current occupation: [employer] current occupational exposures/hazards: No pets and animals: Yes pets and animals: dog(s) history of recent travel: Yes ( - February 2025) out of state: Yes out of country: No sexually active: Yes Smoking Status: Never smoker second hand exposure: No alcohol intake: never substance use type: does not use well-balanced diet: daily or most days caffeine: Yes Type: carbonated beverages Number of servings: 1 eating out: 1-3 times/week during the past year weight has: remained stable what type of physical activity do you participate in: none khai/lutheran: Mandaen seatbelt use: always do you feel safe at home: Yes additional social history: : [employer] History 6 Elective abortions Hx Para 3 Spontaneous abortions 2 Hx # Term Pregnancies 2 Ectopic pregnancies Hx # Pregnancies 2 Multiple births # of living children 4 Past Pregnancies Del. Date Name GA/Weeks Outcome Route Bth Weight Infant Gen Labor Lgth Anesthesia Del Locatn Provider FOB 07/21/18 4 spontaneous TJ 09/20/18 11 spontaneous TJ 11/23/18 Hardy 38 live - full term 7lbs 4oz Male spinal [facility] TJ 12/24/20 Rojas 35 live - 6lbs 4oz Male spinal [facility] Dr. Dailey TJ 05/19/23 Ramakrishna 37 live - full term 7lbs 9oz Male spinal [facility] Katia TJ 10/13/25 Graciela 36 live - Female spinal [facility] Katia YANG Delivery Date: 07/21/18 Last Updated by: Gina Staley RN Passed naturally Delivery Date: 09/20/18 Last Updated by: Gina Staley RN D&C Delivery Date: 11/23/18 Last Updated by: Gina Staley RN [facility]: CAT II FHT Delivery Date: 12/24/20 Last Updated by: Delmy Welsh PPROM Delivery Date: 05/19/23 Last Updated by: Alicia ARECHIGAKatelyn 37 wks preeclampsia Delivery Date: 10/13/25 Last Updated by: Bettye Pelaez RN [facility] severe preeclampsia 36 NST FHR Rate Baby A NST Reactive:: Yes Assessment & Plan (1) History of pre-eclampsia in prior , currently : COMMENT: Baby ASA @ 12-28weeks; Pre-e labs nl PLAN: 35-week intrauterine with blood pressure elevation at home and upon initial presentation on labor delivery; this almost immediately normalized. PIH labs normal. Headache described was unchanged at this visit relative to last several weeks. I am concerned that this may be slowly evolving PIH over the next several days. We have instructed the patient to rest at home and call or return immediately if her headaches worsen lather in the evening or if she has any other neurologic signs such as visual changes; continue to monitor blood pressure at home. Recommended returning to the office the next morning (Monday) for repeat blood pressure check and NST.
== END 2025-10-12 15:00 | disposition home or self-care (01) ==
LOC: WPOUT 13:12 → WP 13:14
PROVIDERS: Obstetrics & Gynecology; PCP Nurse Practitioner Family; Referring Provider Obstetrics & Gynecology; Visit Provider Obstetrics & Gynecology
DX: O99.891 Other specified diseases and conditions complicating pregnancy (principal); R03.0 Elevated blood-pressure reading, without diagnosis of hypertension; Z3A.35 35 weeks gestation of pregnancy; R51.9 Headache, unspecified
CPT/HCPCS: 36415; 59025; 59050; 82565; 82570; 84156; 84450; 84460; 84550; 85027; 99221; G0378

== ENCOUNTER 2025-10-13 14:40 | Inpatient (IN) | payer OTHER, SELFPAY ==
[2025-10-13] VITALS (37 sets, daily range): BP systolic 114–154; BP diastolic 64–85; PULSE 70–118; RESP 16–19; TEMP 36.1–36.9; O2SAT 97–100; BMI 38.0
[2025-10-13] MEDS: Lactated Ringers 1,000 ML 50 ML IV (15:23)
[2025-10-13] MEDS: Magnesium Sulfate 4gm/100mL 4 GM/100 ML IV.SOLN. IV (15:26)
[2025-10-13 15:35] LABS: Hematocrit 35.3 % (37-47); Hemoglobin 11.7 g/dL (12.0-15.0); Immature Granulocytes Count 0.070 X10^3/uL (0.0-0.0); Mean Corp Hgb Conc 33.1 g/dL (32-36); Mean Corpuscular Volume 84.2 fL (81-99); Mean Platelet Vol. 11.0 fl (6.2-12.0); NRBC Flagged by Analyzer 0 % (0-5); Platelet Count 170 K/mm3 (150-450); RBC Distribution Width CV 13.6 % (11.6-14.6); RBC Distribution Width SD 41.8 fl (35.1-43.9); Red Blood Count 4.19 M/mm3 (4.2-5.4); White Blood Count 15.4 K/mm3 (4.4-11.0)
[2025-10-13] MEDS: Magnesium Sulfate 4gm/100mL 2 GM/50 ML IV.SOLN. IV (15:48)
[2025-10-13] MEDS: Magnesium Sulfate 20 GM/500 ML BAG IV (16:02)
[2025-10-13 16:20] LABS: AST(SGOT) 22 U/L (<=31); Alanine Aminotransfer ALT/SGPT 14 U/L (<=34); Albumin, Serum 3.7 g/dL (3.5-5.0); Alkaline Phosphatase 135 U/L (35-104); Anion Gap 15 (5-15); BUN 8 mg/dL (4-19); BUN/Creat Ratio 14.1 RATIO (10-20); Calcium,Total 8.9 mg/dL (7.6-11.0); Carbon Dioxide 18.7 mmol/L (21.0-32.0); Chloride 105 mmol/L (98-108); Estimated Creatinine Clearance 160.22 ml/min (50-250); Globulin 3.2 g/dL (2.2-4.2); Glucose 94 mg/dL (70-99); Potassium 3.6 mmol/L (3.3-5.1)
[2025-10-13 16:46] LABS: Syphilis Antibodies Nonreactive (Nonreactive)
--- NOTE | 2025-10-13 18:24 | HP.PCM.OB_ITS ---
HPI - General General Date of Admission: 10/13/25 HPI Narrative CELIA MILLER, is a 30 F who presents with neurologic symptoms for the last few days, elevated bps, no vb lof goo dfm. she has tried tylenol and caffeine for her headaches and had no improvement in symptoms, now bps are elevated 150s over 90s. she had a course of celestone 1 month ago. Maternal Data Information OTF Calculator Estimated Delivery Date Method Current WG Current Estimate 11/11/25 LMP (Certain) 35w 6d Other Estimates 11/10/25 Ultrasound #1 36w 0d PFSH PFS Medical History (Updated 10/13/25 @ 15:54 by Hussain Portillo) Anxiety Pre-eclampsia History of premature rupture of membranes (PPROM) History of pre-term labor Seasonal allergies History of miscarriage Anxiety Home Medications ?Medication ?Instructions ?Recorded ?Last Taken ?Type docosahexaenoic acid 200 mg 1 mg PO DAILY Unknown History capsule ( DHA) aspirin 81 mg tablet 81 mg PO QDAY pre-e 06/18/25 09/16/25 20:00 History 81 mg Allergy/AdvReac Type Severity Reaction Status Date / Time No Known Allergies Allergy Verified 10/13/25 15:42 Surgical History Hx of wisdom tooth extraction S/P H/O dilation and curettage Social History adopted: No household members: spouse and children housing: house number of children: 3 current occupational status: employed current occupation: [employer] current occupational exposures/hazards: No pets and animals: Yes pets and animals: dog(s) history of recent travel: Yes ( - February 2025) out of state: Yes out of country: No sexually active: Yes Smoking Status: Never smoker second hand exposure: No alcohol intake: never substance use type: does not use well-balanced diet: daily or most days caffeine: Yes Type: carbonated beverages Number of servings: 1 eating out: 1-3 times/week during the past year weight has: remained stable what type of physical activity do you participate in: none khai/christianity: Synagogue seatbelt use: always do you feel safe at home: Yes additional 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 Date Name GA/Weeks Outcome Route Bth Weight Gen Labor Lgth Anesthesia Del Locatn Provider FOB 07/21/18 4 spontaneous TJ 09/20/18 11 spontaneous TJ 11/23/18 Elijah 38 live - full term 7lbs 4oz Male spinal [place] TJ 12/24/20 Rojas 35 live - 6lbs 4oz Male s manuel [facility] Dr. Dailey TJ 05/19/23 Ramakrishna 37 live - full term 7lbs 9oz Male spinal [facility] Katia TJ Delivery Date: 07/21/18 Last Updated by: Gina Staley RN Passed naturally Delivery Date: 09/20/18 Last Updated by: Gina Staley RN D&C Delivery Date: 11/23/18 Last Updated by: Gina Staley RN [facility]: CAT II FHT Delivery Date: 12/24/20 Last Updated by: Delmy Welsh PPROM Delivery Date: 05/19/23 Last Updated by: Alicia Renee RLTCS 37 wks preeclampsia Visit Details Expected Delivery Route/Plan repeat C/S with considenrg BS Plans Covid status: [] Flu vaccine: na Tdap vaccine: given Rhogam: [na LARC form signed: declined Problem list reviewed and updated with the most current plan of care details and appropriate orders placed. Relevant counseling for the gestational age provided. Continue routine care and follow up unless otherwise noted in visit notes/problem list details OB Flowsheet Initial Weight: 177 lb Date -?-?-?-?-?-?-?-?-?-?--?-?- EGA Weight BP Urine Prot -?-?-?-?-?-?-?-?-?-?-?-?- Glucose FHR FuHt Pres Dilation -?-?-?-?-?-?-?-?-?-?-?-?- Effaced St Visit Note 04/07/25 -?-?-?-?-?-?-?-?-?-?-?-?- 8w 6d 177 lb 2 oz (+2 oz) 139/88 -?-?-?-?-?-?-?-?-?-?-?-?- 173 -?-?-?-?-?-?-?-?-?-?-?-?- KW- CRL cons wit h dates. Declines NIPT. KW- CRL cons with dates. Dec lines NIPT. start asa for GHTN/pre e 05/05/25 -?-?-?-?-?-?-?-?-?-?-?-?- 12w 6d 180 lb 6 oz (+3 lb 6 oz) 144/87 Negative -?-?-?-?-?-?-?-?-?-?-?-?- Negative 160 -?-?-?-?-?-?-?-?-?-?-?-?- SM- no vb lof cr amping nausea stable 06/04/25 -?-?-?-?-?-?-?-?-?-?-?-?- 17w 1d 184 lb 2 oz (+7 lb 2 oz) 143/93 126/85 Negative -?-?-?-?-?-?-?-?-?-?-?-?- Negative 145 -?-?-?-?-?-?-?-?-?-?-?-?- SM- normal bps a t home SM- normal bps at home, will start tracking and bring in, no vb crmaping 07/03/25 -?-?-?-?-?-?-?-?-?-?-?-?- 21w 2d 187 lb 5 oz (+10 lb 5 oz) 132/80 Negative -?-?-?-?-?-?--?-?-?-?-?-?- Negative 145 -?-?-?-?-?-?-?-?-?-?-?-?- SM- no vb lof go od fm n oreuglar ctx girl concha 07/29/25 -?-?-?-?-?-?-?-?-?-?-?-?- 25w 0d 195 lb 6 oz (+18 lb 6 oz) 121/80 Negative -?-?-?-?-?-?-?-?-?-?-?-?- Negative 145 26 -?-?-?-?-?-?-?-?-?-?-?-?- SM- no vb lof go od fm n oregualr ctx 08/21/25 -?-?-?-?-?-?-?-?-?-?-?-?- 28w 2d 201 lb (+24 lb) 146/81 126/78 126/78 -?-?-?-?-?-?-?-?-?-?-?-?- 150 29 -?-?-?-?-?-?-?-?-?-?-?-?- SM- no vb lof go od fm n oregular ct x 09/05/25 -?-?-?-?-?-?-?-?-?-?-?-?- 30w 3d 205 lb 7 oz (+28 lb 7 oz) 137/83 Trace -?-?-?-?-?-?-?-?-?-?-?-?- Negative 140 30 Cephalic -?-?-?-?-?-?-?-?-?-?-?-?- SM- n ovb lof go od fm no reugla 09/18/25 -?-?-?-?-?-?-?-?-?-?-?-?- 32w 2d 210 lb 1 oz (+33 lb 1 oz) 145/85 141/85 Trace -?-?-?-?-?-?-?-?-?-?-?-?- Negative 145 32 Breech -?-?-?-?-?-?-?-?-?-?-?-?- SM- elevated bps to l an d for evaluation and steroids. no vb lof good fm nor euglar ctx no feng bv 10/01/25 -?-?-?-?-?-?--?-?-?-?-?-?- 34w 1d 217 lb 6 oz (+40 lb 6 oz) 126/82 Negative -?-?-?-?-?-?-?-?-?-?-?-?- Negative 145 34 Cephalic -?-?-?-?-?-?--?-?-?-?-?-?- SM- no vb lof go od fm no regular ctx some headcahes nothing persistent all normal bps 10/13/25 -?-?-?-?-?-?-?-?-?-?-?-?- 35w 6d 216 lb (+39 lb) 156/91 -?-?-?-?-?-?-?-?-?-?-?-?- -?-?-?-?-?-?-?-?-?-?-?-?- SM- patient skyla loyd persistent headacheunrelieved by tylenol, no vb lof good fm NST FHR Rate Baby A Baseline: 130 Variability:: Moderate Accelerations:: 15 x 15 Decelerations:: None NST Reactive:: Yes FHR Category:: Category I Uterine Activity:: irregular ROS Constitutional Constitutional: Reports systems reviewed and no addt'l complaints, except as documented Eyes Eyes: Denies change in vision ENT HEENT: Reports systems reviewed and no addt'l complaints, except as documented; Denies headache(s) Cardiovascular Cardiovascular: Reports systems reviewed and no addt'l complaints, except as documented; Denies chest pain or dyspnea Respiratory/Chest Respiratory/Chest: Reports systems reviewed and no addt'l complaints, except as documented Gastrointestinal Gastrointestinal: Reports systems reviewed and no addt'l complaints, except as documented; Denies abdominal pain Genitourinary Genitourinary: Reports systems reviewed and no addt'l complaints, except as documented, contractions Details: present (irregular) and movement Details: present; Denies dysuria or genital lesions Musculoskeletal Musculoskeletal: Reports systems reviewed and no addt'l complaints, except as documented Neurologic Neurologic: Reports systems reviewed and no addt'l complaints, except as documented Endocrine Endocrinology: Reports systems reviewed and no addt'l complaints, except as documented Vital Signs Vital Signs Vital Signs: 10/13/25 15:19 10/13/25 15:19 10/13/25 15:19 Temperature Temperature Source Pulse Rate 112 H 102 H Respiratory Rate Respiratory Effort Respiratory Depth Respiratory Pattern Blood Pressure 153/81 H Blood Pressure Mean BP Systolic 153 BP Diastolic 81 Blood Pressure Source Blood Pressure Position Blood Pressure Location Baseline BP Pulse Ox Oxygen Delivery Method 10/13/25 15:19 10/13/25 15:24 10/13/25 15:24 Temperature Temperature Source Pulse Rate 102 H Respiratory Rate Respiratory Effort Respiratory Depth Respiratory Pattern Blood Pressure Blood Pressure Mean BP Systolic BP Diastolic Blood Pressure Source Blood Pressure Position Blood Pressure Location Baseline BP Pulse Ox 97 98 Oxygen Delivery Method 10/13/25 15:25 10/13/25 15:25 10/13/25 15:26 Temperature 98.4 F Temperature Source Temporal Temporal Temporal Pulse Rate Respiratory Rate Respiratory Effort Normal Respiratory Depth Normal Respiratory Pattern Normal Blood Pressure Blood Pressure Mean BP Systolic BP Diastolic Blood Pressure Source Blood Pressure Position Blood Pressure Location Baseline BP Pulse Ox Oxygen Delivery Method 10/13/25 15:26 10/13/25 15:26 10/13/25 15:29 Temperature 98.4 F Temperature Source Pulse Rate 108 H Respiratory Rate 18 Respiratory Effort Respiratory Depth Respiratory Pattern Blood Pressure Blood Pressure Mean BP Systolic BP Diastolic Blood Pressure Source Blood Pressure Position Blood Pressure Location Baseline BP Pulse Ox Oxygen Delivery Method 10/13/25 15:29 10/13/25 15:34 10/13/25 15:34 Temperature Temperature Source Pulse Rate 110 H Respiratory Rate Respiratory Effort Respiratory Depth Respiratory Pattern Blood Pressure Blood Pressure Mean BP Systolic BP Diastolic Blood Pressure Source Blood Pressure Position Blood Pressure Location Baseline BP Pulse Ox 98 100 Oxygen Delivery Method 10/13/25 15:35 10/13/25 15:35 10/13/25 15:39 Temperature Temperature Source Pulse Rate 112 H 113 H Respiratory Rate Respiratory Effort Respiratory Depth Respiratory Pattern Blood Pressure 142/85 H Blood Pressure Mean BP Systolic 142 BP Diastolic 85 Blood Pressure Source Blood Pressure Position Blood Pressure Location Baseline BP Pulse Ox Oxygen Delivery Method 10/13/25 15:39 10/13/25 15:44 10/13/25 15:44 Temperature Temperature Source Pulse Rate 117 H Respiratory Rate Respiratory Effort Respiratory Depth Respiratory Pattern Blood Pressure Blood Pressure Mean BP Systolic BP Diastolic Blood Pressure Source Blood Pressure Position Blood Pressure Location Baseline BP Pulse Ox 100 99 Oxygen Delivery Method 10/13/25 15:49 10/13/25 15:49 10/13/25 15:49 Temperature Temperature Source Pulse Rate 112 H Respiratory Rate Respiratory Effort Respiratory Depth Respiratory Pattern Blood Pressure 137/78 H Blood Pressure Mean BP Systolic 137 BP Diastolic 78 Blood Pressure Source Blood Pressure Position Blood Pressure Location Baseline BP Pulse Ox 99 Oxygen Delivery Method 10/13/25 15:49 10/13/25 15:54 10/13/25 15:54 Temperature Temperature Source Pulse Rate 112 H 113 H Respiratory Rate 18 Respiratory Effort Normal Respiratory Depth Normal Respiratory Pattern Normal Blood Pressure 137/78 H Blood Pressure Mean 97 BP Systolic BP Diastolic Blood Pressure Source Monitor Blood Pressure Position Semi-Fowlers Blood Pressure Location Right Arm Baseline BP Pulse Ox 100 99 Oxygen Delivery Method Room Air 10/13/25 15:59 10/13/25 15:59 10/13/25 16:04 Temperature Temperature Source Pulse Rate 118 H Respiratory Rate Respiratory Effort Respiratory Depth Respiratory Pattern Blood Pressure 149/81 H Blood Pressure Mean BP Systolic 149 BP Diastolic 81 Blood Pressure Source Blood Pressure Position Blood Pressure Location Baseline BP Pulse Ox 100 Oxygen Delivery Method 10/13/25 16:04 10/13/25 16:04 10/13/25 16:09 Temperature Temperature Source Pulse Rate 116 H 112 H Respiratory Rate Respiratory Effort Respiratory Depth Respiratory Pattern Blood Pressure Blood Pressure Mean BP Systolic BP Diastolic Blood Pressure Source Blood Pressure Position Blood Pressure Location Baseline BP Pulse Ox 99 Oxygen Delivery Method 10/13/25 16:09 10/13/25 16:14 10/13/25 16:14 Temperature Temperature Source Pulse Rate 113 H Respiratory Rate Respiratory Effort Respiratory Depth Respiratory Pattern Blood Pressure Blood Pressure Mean BP Systolic BP Diastolic Blood Pressure Source Blood Pressure Position Blood Pressure Location Baseline BP Pulse Ox 100 100 Oxygen Delivery Method 10/13/25 16:19 10/13/25 16:19 10/13/25 16:19 Temperature Temperature Source Pulse Rate 113 H Respiratory Rate Respiratory Effort Respiratory Depth Respiratory Pattern Blood Pressure 145/75 H Blood Pressure Mean BP Systolic 145 BP Diastolic 75 Blood Pressure Source Blood Pressure Position Blood Pressure Location Baseline BP Pulse Ox 100 Oxygen Delivery Method 10/13/25 16:19 10/13/25 16:24 10/13/25 16:24 Temperature Temperature Source Pulse Rate 107 H 105 H Respiratory Rate 16 Respiratory Effort Respiratory Depth Respiratory Pattern Blood Pressure 145/75 H Blood Pressure Mean 98 BP Systolic BP Diastolic Blood Pressure Source Monitor Blood Pressure Position Sitting Blood Pressure Location Right Arm Baseline BP Pulse Ox 100 99 Oxygen Delivery Method Room Air 10/13/25 16:29 10/13/25 16:29 10/13/25 16:34 Temperature Temperature Source Pulse Rate 108 H 105 H Respiratory Rate Respiratory Effort Respiratory Depth Respiratory Pattern Blood Pressure Blood Pressure Mean BP Systolic BP Diastolic Blood Pressure Source Blood Pressure Position Blood Pressure Location Baseline BP Pulse Ox 100 Oxygen Delivery Method 10/13/25 16:34 10/13/25 16:36 10/13/25 16:36 Temperature Temperature Source Pulse Rate 103 H Respiratory Rate Respiratory Effort Respiratory Depth Respiratory Pattern Blood Pressure 149/80 H Blood Pressure Mean BP Systolic 149 BP Diastolic 80 Blood Pressure Source Blood Pressure Position Blood Pressure Location Baseline BP Pulse Ox 100 Oxygen Delivery Method 10/13/25 16:36 10/13/25 16:39 10/13/25 16:39 Temperature Temperature Source Pulse Rate 105 H Respiratory Rate Respiratory Effort Normal Respiratory Depth Normal Respiratory Pattern Normal Blood Pressure Blood Pressure Mean BP Systolic BP Diastolic Blood Pressure Source Blood Pressure Position Blood Pressure Location Baseline BP Pulse Ox 100 Oxygen Delivery Method 10/13/25 16:44 10/13/25 16:44 10/13/25 16:49 Temperature Temperature Source Pulse Rate 108 H Respiratory Rate Respiratory Effort Respiratory Depth Respiratory Pattern Blood Pressure 154/83 H Blood Pressure Mean BP Systolic 154 BP Diastolic 83 Blood Pressure Source Blood Pressure Position Blood Pressure Location Baseline BP Pulse Ox 100 Oxygen Delivery Method 10/13/25 16:49 10/13/25 16:49 10/13/25 16:49 Temperature Temperature Source Pulse Rate 110 H 110 H Respiratory Rate 18 Respiratory Effort Respiratory Depth Respiratory Pattern Blood Pressure 154/83 H Blood Pressure Mean 106 BP Systolic BP Diastolic Blood Pressure Source Monitor Blood Pressure Position Sitting Blood Pressure Location Right Arm Baseline BP Pulse Ox 100 100 Oxygen Delivery Method Room Air 10/13/25 17:23 10/13/25 17:23 10/13/25 17:23 Temperature Temperature Source Pulse Rate 111 H 111 H Respiratory Rate 18 Respiratory Effort Normal Respiratory Depth Normal Respiratory Pattern Normal Blood Pressure 131/77 H 131/77 H Blood Pressure Mean 95 BP Systolic 131 BP Diastolic 77 Blood Pressure Source Monitor Blood Pressure Position Sitting Blood Pressure Location Right Arm Baseline BP Pulse Ox Oxygen Delivery Method 10/13/25 17:53 10/13/25 17:53 10/13/25 17:58 Temperature Temperature Source Pulse Rate 115 H 113 H Respiratory Rate Respiratory Effort Respiratory Depth Respiratory Pattern Blood Pressure 134/73 H Blood Pressure Mean BP Systolic 134 BP Diastolic 73 Blood Pressure Source Blood Pressure Position Blood Pressure Location Baseline BP Pulse Ox Oxygen Delivery Method 10/13/25 17:58 10/13/25 17:58 10/13/25 18:02 Temperature 97.9 F Temperature Source Temporal Pulse Rate 112 H Respiratory Rate 18 Respiratory Effort Normal Respiratory Depth Normal Respiratory Pattern Normal Blood Pressure 134/73 H Blood Pressure Mean 93 BP Systolic BP Diastolic Blood Pressure Source Monitor Blood Pressure Position Sitting Blood Pressure Location Right Arm Baseline BP 134/73 Pulse Ox 98 98 Oxygen Delivery Method Room Air Weight Weight: 215 lb Body Mass Index (BMI) 38.0 PRE- weight 175 lb PRE- Body Mass Index 31.0 (BMI) Physical Exam Const alert, oriented x3, no apparent distress and healthy appearing HEENT normocephalic and moist oral mucous membranes Head and Scalp: atraumatic Neck full ROM, no lymphadenopathy, supple and thyroid normal General: trachea midline Lymph Lymphatic: no lymphadenopathy noted Chest inspection of chest normal Resp normal respiratory effort Cardio regular rate GI soft to palpation and non-tender GI Narrative: gravid Inspection: gravid external exam normal Manual OB Exam: estimated gestational size appropriate, presentation cephalic, dilated, effaced and station Extremity normal to inspection General Extremity: Negative for edema Skin no rashes or lesions noted Neuro no focal motor deficits and deep tendon reflexes 2+ bilaterally Motor Exam: strength 5/5 throughout and clonus absent Psych mental status grossly normal Labs Labs Labs: Blood Type O POSITIVE Antibody Screen NEGATIVE Hct, (37-47) 35.3 % L Hgb, (12.0-15.0) 11.7 g/dL L Obstetrics Ultrasound Syphilis Total Ab, (Nonreactive) Nonreactive Rubella IgG Antibody, (Nonreactive) REAC Hep Bs Antigen, (Nonreactive) Nonreactive Hepatitis C Antibody, (Nonreactive) Nonreactive Chlamydia DNA (DAVID), (Negative) Negative N.gonorrhoeae DNA (DAVID), (Negative) Negative HIV 1&2 Antibody, (Nonreactive) Nonreactive Glucose 1 Hr 50 gm, (70-140) 101 mg/dL Rhogam given: No Assessment & Plan (1) Preeclampsia, severe: (2) GBS (group B streptococcus) UTI complicating : COMMENT: treat in labor (3) Supervision of high-risk : COMMENT: PRR, ; OTF 11/11/25; girl Concha Real PC: Rojas Nava & Ramakrishna; : TJ (4) : QUALIFIERS: Weeks of gestation: 35 weeks Qualified Code(s): Z3A.35 - 35 weeks gestation of COMMENT: Discussed genetic/carrier testing - undecided (5) Obesity affecting : COMMENT: BMI 30.1; HgBA1C normal (6) History of pre-eclampsia in prior , currently : COMMENT: Baby ASA @ 12-28weeks; Pre-e labs nl (7) History of gestational hypertension: (8) History of miscarriage, currently : COMMENT: x2 w/1 D&C (9) History of delivery, currently : COMMENT: x3;rpt csec with SM 11/05 possible BS (10) Hx of delivery, currently : COMMENT: Pre-term labor w/PPROM @ 35weeks with 2nd child PLAN: Plan start magnesium, recommend delivery for preeclampsia with severe features.
--- NOTE | 2025-10-13 18:26 | OP.PCM_ITS ---
Assessment & Plan (1) Preeclampsia, severe: (2) Supervision of high-risk : COMMENT: PRR, ; OTF 11/11/25; girl Graciela Real PC: Rojas Nava & Ramakrishna; : CELIA (3) : QUALIFIERS: Weeks of gestation: 35 weeks Qualified Code(s): Z3A.35 - 35 weeks gestation of COMMENT: Discussed genetic/carrier testing - undecided (4) Obesity affecting : COMMENT: BMI 30.1; HgBA1C normal Maternal Data Information OTF Calculator Estimated Delivery Date Method Current WG Current Estimate 11/11/25 LMP (Certain) 35w 6d Other Estimates 11/10/25 Ultrasound #1 36w 0d Final OTF Source: LMP Operative Report (OB) Procedure Details Date of Procedure: 10/13/25 Procedure Start Time: 18:45 Pre-Operative Diagnosis: Other Other Pre-Operative diagnosis: see a/p comments Post-Operative Diagnosis: Same as Pre-operative diagnosis Classification: Scheduled Type of Anesthesia: Spinal Special Medications: none Antibiotic Given: Ancef 2 grams IV x1 Drain: Moreno to straight drain Estimated Blood Loss: 800 Fluids Replaced: crystalloid Findings Description of surgery: Spinal anesthesia was placed without difficulty. Moreno catheter was placed. The patient was placed in the dorsal supine position with leftward tilt. Patient was prepped and draped in the normal sterile fashion. Pfannenstiel skin incision was made with the scalpel and carried through to the underlying layer of fascia with the scalpel. Fascia was nicked in the midline and the incision extended laterally. The rectus bellies were dissected off superiorly and inferiorly with out complication both sharply and bluntly. The peritoneum was entered digitally. The incision was stretched and a low transverse uterine incision was made with the scalpel. The 's head was delivered atraumatically followed by the anterior and posterior shoulders without complication the rest of the delivered. The cord was clamped and cut and the infant was handed off to awaiting nurse. The placenta was delivered spontaneously immediately following and was noted to be intact and have a three- vessel cord. The uterus was exteriorized cleared of all clots and debris, and the incision was closed in a single layer closure using #1 Monocryl. The ovaries and fallopian tubes were noted to be within normal limits. Patient had desired sterilization and was counseled preoperatively regarding irreversibility and permanency. Therefore bilateral fallopian tubes were elevated and transected across using a LigaSure device starting proximally to distally without complication the entire fallopian tubes were removed. The uterus was returned to the maternal abdomen and gutters were cleared of all clots and debris. Patient had desired sterilization and was counseled preoperatively regarding irreversibility and permanency. Therefore bilateral fallopian tubes were elevated and transected across using a LigaSure device starting proximally to distally without complication the entire fallopian tubes were removed. The peritoneum was closed with 3-0 Monocryl in a running fashion. hemoblast used on the muscle and additional sutures placed on the upper muscle for hemostasis. Gloves were changed prior to fascial closure. Fascia was closed with 0 PDS in a running fashion. Subcutaneous tissue was copiously irrigated and the skin was closed with 3-0 Monocryl in a subcuticular fashion. Mepilex dressing was applied without complication. Patient was taken to recovery in stable condition. Surgical findings: extensive scar tissue Presentation: Vertex Amniotic Membrane Rupture Type: Artificial Amniotic Fluid Description: Clear Specimen collected: Yes Description of specimen(s) removed: placenta and baby Cord Vessel Description: 3 Vessels Delayed Cord Clamping: Yes Ammonium Nitrate Neutralizer bricklayer paving brick: Yes Automotive Machinist Apprentice: [place] Moon Tasks completed by engineer first assistant: Opening & closing, Retracting and Other (assisting in delivery of the ) Additional microbiology lab assistant?: No Complications Complications: No Admit VTE Documentation VTE Present on Admission: No VTE Mechan Device Prophylaxis: SCD's Procedures Urinary/Genital [id number]: [id number] Delivery [facility]
[2025-10-13] MEDS: Cefazolin 1 GM/5 ML Vial 2 GM IV (18:41)
[2025-10-13] MEDS: morphine PF (epidural) 5 MG/10 ML Vial EPIDURAL (18:48)
[2025-10-13] MEDS: 0.9% Normal Saline (1000mL) 350 ML IV (19:10)
--- NOTE | 2025-10-13 19:12 | PLAC_PTH ---
PATIENT: CELIA MILLER LOC: [facility] U#:[id number] AGE/SX: 30/F ROOM: WP009 RE10/13/[address]: Dr. Angelia Montalvo MD : 1995 BED: 1 DIS: 10/15/2025 SPEC #: [id number] RECD: 10/13/25 23:29 STATUS: MANAS KARIME #: [id number] RAZ: 10/13/25 19:[address]: Angelia Montalvo DEPT: SURGICAL PATHOLOGY RECD BY: Vel Timmons ENTERED: 10/14/25 08:51 SP TYPE: PLACENTA OTHR DR: Griselda Koch, CONTOUR GRINDER-C Tissues: A - Placenta, NOS Fallopian tube Procedures: Surgery Specimen Level II Surgery Specimen Level V HEADER OPERATION: Repeat section, tubal ligation PRE-OP DIAGNOSIS: Sterilization TISSUE SUBMITTED: A- Placenta, B- Bilateral fallopian tubes MICROSCOPIC DIAGNOSIS A. Placenta, 35 weeks / 6 days gestation, section: - 3rd trimester placenta, 500.0 grams, 50th-75th percentile by date. - Focal mild acute chorionitis noted in the membranes. - Tri-vessel umbilical cord with focal mild acute vasculitis. B. Bilateral fallopian tubes, resection: - Complete luminal cross-section confirmed x2. MICROSCOPIC DESCRIPTION Slides are reviewed. GROSS DESCRIPTION A. Received in formalin labeled with the patient's name and date of is a 500.0 g, 18.3 x 17.1 x 2.9 cm irregular placental disc. The membranes are brown-pink and translucent with patchy opacity and loosely adherent blood clot, inserting marginally. The, trivascular, possibly compressed umbilical cord has a false knot and measures 45.0 cm in length by 1.2-1.7 cm in diameter and inserts eccentrically, 5.1 cm from the disc edge. The surface is blue and glistening with patchy subchorionic fibrin (<15%). The maternal surface is red-brown with a diffusely torn and frayed appearance; there is patchy, loosely adherent to adherent blood clot on the maternal surface and when reapproximated, it appears the maternal surface is near complete. Sectioning reveals dark red, spongy and somewhat congested parenchyma with focal hemorrhages (<15%). Manager Adult sections are submitted as follows: A1: Membrane rollA2: Umbilical cordA3: PlacentaA4: Placenta B. Received in formalin labeled with the patient's name and date of are 2 purple-red fimbriated fallopian tubes devoid of orientation, 6.0 x 0.7 cm and 5.2 x 0.4 cm. There is a possible, 0.5 cm paratubal cyst. Manager Adult sections are submitted in 2 cassettes, including the possible cyst in cassette B2. NE 10/15/2025 CPT:[id number]
[2025-10-13] MEDS: Ketorolac 30 MG/ML Syringe IV (19:17)
[2025-10-13] MEDS: morphine PF (epidural) 5 MG/10 ML Vial 4.9 MG IV (19:27)
[2025-10-13] MEDS: BUPIVACAINE LIPOSOME/PF 20 ML VIAL OPERA.SITE (19:50)
--- NOTE | 2025-10-13 20:15 | PCM.POST.ANE ---
Anesthesia: Postop Eval I Current Vital Signs Temperature: 98 F Pulse Rate: 70 Blood Pressure: 116/68 Respiratory Rate: 16 Pulse Ox: 97 Oxygen Delivery Method: Room Air Assessment Airway patent: Yes Spontaneous unlabored respirations: Yes Mental status: Awake and Calm nausea: No Vomiting: No Anesthesia Complication: No Fluid Hydration Crystalloid volume administer (ml): 800 Total IV fluid infused: 800 Progress Note Anesthesia document: Postop Eval 1 completed: Yes
--- NOTE | 2025-10-13 20:18 | POSTOPAN2_ITS ---
Anesthesia Postop Eval I Sum Postop Eval Completion status Anesthesia document: Postop Eval 1 completed: Yes Anesthesia Postop Eval I Summary Anesthesia Postop Eval I Summary: Anesthesia Postop Eval I: Assessment Summary Airway patent Yes 10/13/25 20:16 BELT [email or web address] Spontaneous unlabored Yes 10/13/25 20:16 BELT [email or web address].MDOT respirations Mental status Awake,Calm 10/13/25 20:16 BELT [email or web address] nausea No 10/13/25 20:16 BELT [email or web address].MDOT Vomiting No 10/13/25 20:16 BELT [email or web address] Anesthesia Postop Eval I: Fluid Summary Crystalloid volume administer 800 10/13/25 20:16 BELT MOLDER.MDOT (ml) Colloids volume administered ( ml) Blood Product volume administered (ml) Total IV fluid infused 800 10/13/25 20:16 BELT [email or web address] Anesthesia Postop Eval I: Summary Notes Anesthesia Complication No 10/13/25 20:16 BELT [email or web address] Anesthesia Complication Comment: Post-operative progress note Anesthesia: Postop Eval II Evaluation Mental status: Awake and Calm Pain Level: 0 nausea: No Vomiting: No Complications Anesthesia Complication: No
--- NOTE | 2025-10-13 20:18 | PCM.POSTANE2 ---
Anesthesia Postop Eval I Sum Postop Eval Completion status Anesthesia document: Postop Eval 1 completed: Yes Anesthesia Postop Eval I Summary Anesthesia Postop Eval I Summary: Anesthesia Postop Eval I: Assessment Summary Airway patent Yes 10/13/25 20:16 FOLDER AND [email or web address] Spontaneous unlabored Yes 10/13/25 20:16 FOLDER AND NOTCHER.MDOT respirations Mental status Awake,Calm 10/13/25 20:16 FOLDER AND [email or web address].MDOT nausea No 10/13/25 20:16 FOLDER AND [email or web address].MDOT Vomiting No 10/13/25 20:16 FOLDER AND [email or web address] Anesthesia Postop Eval I: Fluid Summary Crystalloid volume administer 800 10/13/25 20:16 FOLDER AND [email or web address].MDOT (ml) Colloids volume administered ( ml) Blood Product volume administered (ml) Total IV fluid infused 800 10/13/25 20:16 FOLDER AND [email or web address].MDOT Anesthesia Postop Eval I: Summary Notes Anesthesia Complication No 10/13/25 20:16 FOLDER AND [email or web address].MDOT Anesthesia Complication Comment: Post-operative progress note Anesthesia: Postop Eval II Evaluation Mental status: Awake and Calm Pain Level: 0 nausea: No Vomiting: No Complications Anesthesia Complication: No
[2025-10-13] MEDS: Oxytocin 15 Units/NS 250ml 15 UNITS/250 ML IV.SOLN 83 UNITS IV (20:43)
[2025-10-13] MEDS: Lactated Ringers 1,000 ML 15 ML IV (20:43)
--- NOTE | 2025-10-13 23:11 | NURSING ---
Magnesium infusion on pause from 1828 to 2042 due to surgery per SMarcanthony. Magnesium resumed at 2042 per order by this RN.
[2025-10-13 23:52] LABS: Pathology Specimen OB SEE PATHOLOGY REPORT
[2025-10-13 23:52] LABS: Pathology Specimen OB SEE PATHOLOGY REPORT
[2025-10-14] VITALS (20 sets, daily range): BP systolic 107–142; BP diastolic 63–91; PULSE 76–97; RESP 16–18; TEMP 36.1–36.3; O2SAT 96–99
[2025-10-14] MEDS: Cefazolin 2 GM in 0.9% Normal Saline (100mL Bag) 100 ML IV ×4 (00:30→19:04)
[2025-10-14] MEDS: Ketorolac 30 MG/ML Syringe IV ×3 (02:23→14:04)
[2025-10-14] MEDS: Magnesium Sulfate 20 GM/500 ML BAG IV ×2 (04:02→14:04)
[2025-10-14 06:11] LABS: Hematocrit 30.5 % (37-47); Hemoglobin 10.3 g/dL (12.0-15.0); Mean Corp Hgb Conc 33.8 g/dL (32-36); Mean Corpuscular Volume 84.7 fL (81-99); Mean Platelet Vol. 10.8 fl (6.2-12.0); Platelet Count 145 K/mm3 (150-450); RBC Distribution Width CV 13.8 % (11.6-14.6); RBC Distribution Width SD 43.1 fl (35.1-43.9); Red Blood Count 3.60 M/mm3 (4.2-5.4); White Blood Count 15.6 K/mm3 (4.4-11.0)
[2025-10-14 06:36] LABS: AST(SGOT) 27 U/L (<=31); Alanine Aminotransfer ALT/SGPT 12 U/L (<=34); Albumin, Serum 3.2 g/dL (3.5-5.0); Alkaline Phosphatase 113 U/L (35-104); Anion Gap 12 (5-15); BUN 5 mg/dL (4-19); BUN/Creat Ratio 10.4 RATIO (10-20); Calcium,Total 7.2 mg/dL (7.6-11.0); Carbon Dioxide 21.0 mmol/L (21.0-32.0); Chloride 103 mmol/L (98-108); Estimated Creatinine Clearance 186.38 ml/min (50-250); Globulin 2.8 g/dL (2.2-4.2); Glucose 130 mg/dL (70-99); Potassium 4.0 mmol/L (3.3-5.1)
[2025-10-14] MEDS: Senna/Docusate Sodium 1 Tablet PO (12:30)
--- NOTE | 2025-10-14 14:33 | PN.OBGYN_ITS ---
Subjective Subjective Patient doing well without complaints. Tolerating PO. in SCN. Denies chest pain, shortness of breath, calf pain/swelling, fevers, chills, lightheadedness. Objective Data Objective Data Vital Signs: Vital Signs Temp Pulse Resp BP Pulse Ox O2 Del Method 97.0 F L 83 16 115/63 96 Room Air 10/14/25 11:31 10/14/25 13:30 10/14/25 13:30 10/14/25 13:30 10/14/25 13:30 10/14/25 13:30 Oxygen Delivery Method Room Air Weight: 215 lb Body Mass Index (BMI) 38.0 Intake & Output: Intake and Output for Last 24 Hours 10/12/25 10/13/25 10/14/25 23:59 23:59 23:59 Intake Total 1474.06 / 1474.06 1840 / 1840 Output Total 2400 / 2400 1650 / 1650 Balance -925.94 / -925.94 190 / 190 Lab / Micro Data 10/14/25 06:00 10/14/25 06:00 Labs: Laboratory Results - last 24 hr 10/13/25 15:05: WBC 15.4 H, RBC 4.19 L, Hgb 11.7 L, Hct 35.3 L, MCV 84.2, MCH 27.9, MCHC 33.1, RDW Std Deviation 41.8, RDW Coeff of Sherif 13.6, Plt Count 170, MPV 11.0, Immature Gran % (Auto) 0.500, Neut % (Auto) 81.7 H, Lymph % (Auto) 10.8 L, Piute % (Auto) 6.4, Eos % (Auto) 0.4, Baso % (Auto) 0.2, Absolute Neuts (auto) 12.6 H, Absolute Lymphs (auto) 1.66, Nucleated RBC % 0, Sodium 138, Potassium 3.6, Chloride 105, Carbon Dioxide 18.7 L, Anion Gap 15, BUN 8, C reatinine 0.57 L, Estim Creat Clear Calc 160.22, Est GFR (MDRD) Non-Af 127, BUN/Creatinine Ratio 14.1, Glucose 94, Calcium 8.9, Total Bilirubin 0.25, AST 22, ALT 14, Alkaline Phosphatase 135 H, Total Protein 6.8, Albumin 3.7, Globulin 3.2, Albumin/Globulin Ratio 1.2, Syphilis Total Ab Nonreactive, Blood Type O POSITIVE, Antibody Screen NEGATIVE 10/14/25 06:00: WBC 15.6 H, RBC 3.60 L, Hgb 10.3 L, Hct 30.5 L, MCV 84.7, MCH 28.6, MCHC 33.8, RDW Std Deviation 43.1, RDW Coeff of Sherif 13.8, Plt Count 145 L, MPV 10.8, Sodium 136, Potassium 4.0, Chloride 103, Carbon Dioxide 21.0, Anion Gap 12, BUN 5, Creatinine 0.49 L, Estim Creat Clear Calc 186.38, Est GFR (MDRD) Non-Af 131, BUN/Creatinine Ratio 10.4, Glucose 130 H, Calcium 7.2 L, Total Bilirubin 0.30, AST 27, ALT 12, Alkaline Phosphatase 113 H, Total Protein 6.0, A lbumin 3.2 L, Globulin 2.8, Albumin/Globulin Ratio 1.1 ROS Constitutional Constitutional: Reports systems reviewed and no addt'l complaints, except as documented Cardiovascular Cardiovascular: Reports systems reviewed and no addt'l complaints, except as documented Respiratory/Chest Respiratory/Chest: Reports systems reviewed and no addt'l complaints, except as documented Gastrointestinal Gastrointestinal: Reports systems reviewed and no addt'l complaints, except as documented Physical Exam Const alert, oriented x3 and no apparent distress HEENT Head and Scalp: atraumatic Resp normal respiratory effort GI soft to palpation and non-tender Inspection: incision intact, healing well and drainage (none) Bimanual Exam - Vag & Uterus: uterus non-tender Uterus Palpation: uterus fundus firm (below Umbilicus) Assessment & Plan (1) Preeclampsia, severe: (2) Supervision of high-risk : COMMENT: PRR, ; OTF 11/11/25; girl Graciela Real PC: Rojas Nava & Ramakrishna; : TJ (3) : QUALIFIERS: Weeks of gestation: 35 weeks Qualified Code(s): Z 3A.35 - 35 weeks gestation of COMMENT: Discussed genetic/carrier testing - undecided (4) delivery delivered: COMMENT: RLTCS girl Graciela 36 severe preeclampsia PLAN: Plan s/p LTCS PPD # 1 1. routine post care 2. breast feeding- support given 3. rh positive 4. rubella immune monitor bps, dc mag after 24 hours begin anti HTN PRN
[2025-10-15 01:20] VITALS: BP 122/76; PULSE 78; RESP 16; TEMP 36.4; O2SAT 97
[2025-10-15 03:32] VITALS: BP 111/72; PULSE 80; RESP 16; TEMP 36.1; O2SAT 98
--- NOTE | 2025-10-15 07:52 | PCM.DC.SUM ---
Providers Date of Admission: 10/13/25 Primary Care Physician: Griselda Koch, ENGINEERING ASSOCIATE-C Reason For Visit: LABOR AND CSECTION Diagnosis Discharge Diagnosis (1) Preeclampsia, severe: Status: Acute Code(s): O14.10 - Severe pre-eclampsia, unspecified trimester (2) Supervision of high-risk : Status: Acute Code(s): O09.90 - Supervision of high risk , unspecified, unspecified trimester (3) : Status: Acute Code(s): Z34.90 - Encounter for supervision of normal , unspecified, unspecified trimester Qualifiers: Weeks of gestation: 35 weeks Qualified Code(s): Z3A.35 - 35 weeks gestation of (4) delivery delivered: Status: Acute Code(s): O82 - Encounter for delivery without indication Medications at Discharge Home Medications docosahexaenoic acid 200 mg capsule ( DHA) 1 mg PO DAILY 03/28/25 ibuprofen 800 mg tablet 800 mg PO Q8H PRN pain #30 tabs 10/15/25 oxycodone-acetaminophen 5 mg-325 mg tablet (Percocet) 1 tab PO Q4H PRN pain 7 days #15 tabs 10/15/25 Hospital Course Operations section Summary of Care Provided Minutes Spent on Discharge: 30 Hospital Course: The patient was admitted for a repeat section on 10/13/2025 at 36 weeks for pre-eclampsia with neurological symptoms. There were no complications. On day #1 magnesium sulfate was discontinued. she was tolerating pain well and ambulating, on day #2 her bp was stable and she requested to be discharged to see her baby in [place] as she was transferred for breathing difficulties after delivery. Physical Exam HEENT normocephalic Resp normal respiratory effort and normal air movement GI soft to palpation, non-tender and non-distended Rectal Exam: other Other Details: Incision is clean, dry, and intact no CVA tenderness Extremity normal to inspection General Extremity: edema bilateral (trace ) Weight / BMI Weight Weight: 215 lb Body Mass Index (BMI) 38.0 PRE- weight 175 lb PRE- Body Mass Index 31.0 (BMI) ABG / Lab / Microbiology Data 10/14/25 06:00 10/14/25 06:00 D/C Instructions May resume sexual activity in: 4-6 weeks Weight Bearing Status: Full weight bearing Call your doctor if your incision/area has: Continuous Slow Oozing, Sudden Increased Bleeding, Increased Pain/ Swelling, Increased Redness and Foul Smelling Discharge Call your doctor if you observe: Fever of 101 or Higher and Using more than 1 pad per hour Suture Line Care: Avoid Pulling/Pushing and Avoid Pinching/Bending Cleanse incision/area with: Soap & Water and Keep Dressing Clean & Dry DC O2, CPAP, BIPAP Needs Home O2 Discharge instructions: No Please Follow Up With: Flores Vasquez DO When: Call [phone] to make an appointment for an incision check in 1-2 weeks. Meaningful Use Info Meaningful Use Meaningful Use Diagnoses (Choose all that apply): None applicable Discharge Plan Admission Admit Date/Time: 10/13/25 14:40 Primary Reason for Your Visit: section Attending Provider: Angelia Montalvo Primary Care Provider: Griselda Koch Discharge Orders/Prescriptions Prescriptions: New ibuprofen 800 mg tablet 800 mg PO Q8H PRN (Reason: pain) Qty: 30 0RF oxycodone-acetaminophen [Percocet] 5-325 mg tablet 1 tab PO Q4H PRN (Reason: pain) 7 Days Qty: 15 0RF Discontinued aspirin 81 mg tablet 81 mg PO QDAY No Action DHA 200 mg capsule 1 mg PO DAILY Referrals / Follow Up: Griselda Koch, ENGINEERING ASSOCIATE-C [Primary Care Provider, Medical] Disposition Disposition (needs filled in before D/C Order can be placed): Home, Self Care
[2025-10-15 07:55] VITALS: BP 129/81; PULSE 91; RESP 20; TEMP 36.2; O2SAT 98
[2025-10-15] MEDS: Senna/Docusate Sodium 1 Tablet PO (09:48)
== END 2025-10-15 09:54 | disposition home or self-care (01) | DRG 784 ==
PROVIDERS: Admitting Provider Obstetrics & Gynecology; PCP Nurse Practitioner Family; Referring Provider Obstetrics & Gynecology; Visit Provider Obstetrics & Gynecology
DX: O14.14 Severe pre-eclampsia complicating childbirth (principal); O98.82 Other maternal infectious and parasitic diseases complicating childbirth; O99.214 Obesity complicating childbirth; B95.1 Streptococcus, group B, as the cause of diseases classified elsewhere; Z30.2 Encounter for sterilization; O34.211 Maternal care for low transverse scar from previous cesarean delivery; Z37.0 Single live birth; Z87.59 Personal history of other complications of pregnancy, childbirth and the puerperium; Z79.82 Long term (current) use of aspirin; Z3A.36 36 weeks gestation of pregnancy; Z87.440 Personal history of urinary (tract) infections
CPT/HCPCS: 59025; 59050; 80053; 85025; 85027; 86780; 86850; 86900; 86901; 88302; 88307; 99221; G0378; J0666; J2405

== ENCOUNTER → 2025-10-13 | Outpatient (CLI) | payer OTHER, SELFPAY ==
[2025-10-13 15:01] LABS: Creatinine, Urine (random) 96.30 mg/dL (28.00-217.00); Protein, Urine (Random) 10.8 mg/dL (0.0-12.0); Protein:Creat Ratio 112 mg/g CRE (0-200)
== END | disposition home or self-care (01) ==
LOC: LABSPEC 14:40
PROVIDERS: PCP Nurse Practitioner Family; Visit Provider Obstetrics & Gynecology
DX: O09.90 Supervision of high risk pregnancy, unspecified, unspecified trimester (principal); Z3A.00 Weeks of gestation of pregnancy not specified
CPT/HCPCS: 82570; 84156